=== PATIENT | female | born 1970 | race American Indian/Alaskan Native ===

== ENCOUNTER 2018-09-17 14:43 | Inpatient (IN) | payer MEDICAID ==
--- NOTE | 2018-09-17 15:05 | Emergency Department Report ---
Chief Complaint: Medical Clearance Stated Complaint: SOB/EDEMA Time Seen by Provider: 09/17/18 14:58 - HPI History of Present Illness: Pt presents abdominal distension and BLE edema for two weeks (+) SOB denies CP, chest tightness according to pts paperwork she has gained 86 pounds in 10 weeks denies hx of CHF, hepatitis, liver dysfunction PMHx schizophrenia and HTN seen at [facility] two days ago and d/c home (+) smoker MSE complete MSE screening note: Focused history and physical exam performed. ED Disposition for MSE Condition: Stable
--- NOTE | 2018-09-17 15:45 | Emergency Department Report ---
ED General Adult HPI - General Chief complaint: Medical Clearance Stated complaint: SOB/EDEMA Time Seen by Provider: 09/17/18 14:58 Source: patient Mode of arrival: Ambulatory Limitations: No Limitations - History of Present Illness Initial comments: Patient is 47 years old, morbidly obese female with history of schizophrenia and hypertension. Patient presented to the ER complaining of generalized body swelling and stiffness with some shortness of breath. Patient stated that she was seen in multiple ER recently for the same problem. She denied any chest pain, abdominal pain, nausea or vomiting. Patient denied any auditory or visual hallucination. No suicidal or homicidal ideation. Severity scale (0 -10): 0 - Related Data Home Medications Medication Instructions Recorded Confirmed Last Taken Divalproex Sodium [Depakote] 500 mg PO BID 09/17/18 09/17/18 Unknown Haldol (Nf) 09/17/18 Unknown Invega Sustenna 09/17/18 Unknown diphenhydrAMINE [Benadryl CAP] 50 mg PO HS 09/17/18 09/17/18 Unknown Allergies Allergy/AdvReac Type Severity Reaction Status Date / Time No Known Allergies Allergy Unverified 09/17/18 15:05 ED Review of Systems ROS: Stated complaint: SOB/EDEMA Other details as noted in HPI Comment: All other systems reviewed and negative Constitutional: denies: chills, fever Respiratory: shortness of breath, SOB with exertion. denies: cough, orthopnea, wheezing Cardiovascular: denies: chest pain, palpitations, dyspnea on exertion Gastrointestinal: denies: abdominal pain, nausea, vomiting Musculoskeletal: denies: back pain Neurological: denies: headache, weakness, numbness, paresthesias, confusion, abnormal gait ED Past Medical Hx - Past Medical History Hx GERD: Yes Hx Psychiatric Treatment: Yes (schizophrenia) - Social History Smoking Status: Current Every Day Smoker Substance Use Type: None - Medications Home Medications: Home Medications Medication Instructions Recorded Confirmed Last Taken Type Divalproex Sodium [Depakote] 500 mg PO BID 09/17/18 09/17/18 Unknown History Haldol (Nf) 09/17/18 Unknown History Invega Sustenna 09/17/18 Unknown History diphenhydrAMINE [Benadryl CAP] 50 mg PO HS 09/17/18 09/17/18 Unknown History ED Physical Exam - General Limitations: No Limitations General appearance: alert, in no apparent distress - Head Head exam: Present: atraumatic, normocephalic, normal inspection - Eye Eye exam: Present: normal appearance, periorbital swelling. Absent: periorbital tenderness - ENT ENT exam: Present: normal exam, normal orophraynx, mucous membranes moist - Neck Neck exam: Present: normal inspection, full ROM. Absent: tenderness, meningismus, lymphadenopathy, thyromegaly - Respiratory Respiratory exam: Present: normal lung sounds bilaterally. Absent: respiratory distress, wheezes, rales, rhonchi - Cardiovascular Cardiovascular Exam: Present: regular rate, normal rhythm, normal heart sounds - GI/Abdominal GI/Abdominal exam: Present: soft, normal bowel sounds. Absent: distended, tenderness, guarding, rebound, rigid, organomegaly, mass, bruit, pulsatile mass - Extremities Exam Extremities exam: Present: normal inspection, full ROM, normal capillary refill, pedal edema. Absent: calf tenderness - Back Exam Back exam: Present: normal inspection, full ROM. Absent: tenderness, CVA tenderness (R), CVA tenderness (L), muscle spasm, paraspinal tenderness - Neurological Exam Neurological exam: Present: alert, oriented X3, CN II-XII intact, normal gait, reflexes normal - Skin Skin exam: Present: warm, intact, normal color ED Course Vital Signs 09/17/18 09/17/18 09/17/18 15:02 15:37 16:00 Temperature 98.5 F 97.5 F L Pulse Rate 100 H 112 H 83 Respiratory 20 22 21 Rate Blood Pressure 164/99 137/86 Blood Pressure 149/89 [Left] O2 Sat by Pulse 99 100 99 Oximetry 09/17/18 09/17/18 09/17/18 17:00 18:00 19:00 Temperature Pulse Rate 86 88 79 Respiratory 16 25 H 20 Rate Blood Pressure 137/86 137/86 144/84 Blood Pressure [Left] O2 Sat by Pulse 99 98 92 Oximetry - Reevaluation(s) Reevaluation #1: 09/17/18 16:41 Dr. Carmita Tatum. Psychiatric doctor for this patient came to the emergency room to check on the patient. Dr. Tatum stated that patient gained 85 pounds in the last 2 months with significant shortness of breath and bilateral lower extremity edema and she is really concerned about how her medical health since patient is not taking care of herself. 09/17/18 19:32 - EJ/Peripheral Line Neck R Time Out Performed: Yes Indications: nurses unable to establis Skin Cleansed in Sterile Fashion: Yes Size: 20 Dressing Placed: Tegaderm, tape Patient Tolerated Procedure: well, no complications ED Medical Decision Making - Lab Data Result diagrams: 09/17/18 15:17 09/17/18 15:17 - Medical Decision Making Patient is 47 years old, morbidly obese female with history of schizophrenia and hypertension. Patient presented to the ER complaining of generalized body swelling and stiffness with some shortness of breath. Patient stated that she was seen in multiple ER recently for the same problem. She denied any chest pain, abdominal pain, nausea or vomiting. Patient denied any auditory or visual hallucination. No suicidal or homicidal ideation. Differential diagnosis for this patient is either congestive heart failure or nephrotic syndrome. Patient has more than 500 mg in the urine. I discussed the patient is Dr. Killian, he agreed to admit the patient to medical service. Critical Care Time: Yes Critical care time in (mins) excluding proc time.: 30 Critical care attestation.: If time is entered above; I have spent that time in minutes in the direct care of this critically ill patient, excluding procedure time. ED Disposition Clinical Impression: Acute exacerbation of congestive heart failure, Nephrotic syndrome, Generalized edema Disposition: OP ADMIT IP TO THIS HOSP Is pt being admited?: Yes Condition: Stable
[2018-09-17 15:57] LABS: Alanine Aminotransferase 7 units/L (7-56); Albumin 1.3 g/dL (3.9-5); BUN/Creatinine Ratio 16; Blood Urea Nitrogen 37 mg/dL (7-17); Calcium 7.4 mg/dL (8.4-10.2); Hemolysis Index 12
[2018-09-17 16:15] LABS: Basophils % (Auto) 0.8 % (0.0-1.8); Eosinophils # (Auto) 0.1 K/mm3 (0.0-0.4); Eosinophils % (Auto) 2.3 % (0.0-4.3); Hematocrit 27.9 % (30.3-42.9); Hemoglobin 9.1 gm/dl (10.1-14.3); Lymphocytes # (Auto) 1.7 K/mm3 (1.2-5.4); Lymphocytes % (Auto) 32.5 % (13.4-35.0); Mean Corpuscular HGB Conc 33 % (30-34); Mean Corpuscular Volume 83 fl (79-97); Monocytes # (Auto) 0.5 K/mm3 (0.0-0.8); Monocytes % (Auto) 8.8 % (0.0-7.3); Platelet Count 260 K/mm3 (140-440); Red Blood Count 3.34 M/mm3 (3.65-5.03)
[2018-09-17 16:19] LABS: Red Cell Distribution Width 20.5 % (13.2-15.2)
[2018-09-17 16:22] LABS: INR 0.93 (0.87-1.13)
[2018-09-17 16:23] LABS: Partial Thromboplastin Time 22.2 Sec. (24.2-36.6)
[2018-09-17] MEDS ORDERED: LASIX IV ONE (16:44)
[2018-09-17 17:48] LABS: Bacteria,Urine 2+ /HPF (Negative); Bilirubin,Urine NEG (Negative); Blood,Urine SM (Negative); Color,Urine Yellow (Yellow); Hyaline Casts,Urine 6 /LPF; Mucus,Urine FEW /HPF; Urobilinogen,Urine < 2.0 mg/dL (<2.0)
[2018-09-17 17:49] LABS: Protein,Urine >500 mg/dL (Negative)
[2018-09-17 17:53] LABS: Amphetamine Screen,Urine PRESUMPTIVE NEGATIVE; Benzodiazepines Screen,Urine PRESUMPTIVE NEGATIVE; Cannabinoid Screen,Urine PRESUMPTIVE NEGATIVE; Cocaine Screen,Urine PRESUMPTIVE NEGATIVE; Methadone Screen,Urine PRESUMPTIVE NEGATIVE; Opiate Screen,Urine PRESUMPTIVE NEGATIVE
--- NOTE | 2018-09-17 18:35 | XRay Report ---
PROCEDURE: XR CHEST ROUTINE 2V TECHNIQUE: 2 views of the chest HISTORY: Dyspnea COMPARISONS: None FINDINGS: Heart size upper limits normal. Patchy left lower lobe infiltrate with left basal consolidation. Mild right perihilar increased markings. IMPRESSION: Left lower lobe pneumonia versus asymmetric edema.. This document is electronically signed by Emy Martin MD., September 17 2018 06:33:42 PM ET
[2018-09-17] MEDS ORDERED: LASIX ONE (18:47)
--- NOTE | 2018-09-18 02:37 | History and Physical Report ---
History of Present Illness Date of examination: 09/17/18 Date of admission: 09/17/18 18:15 Medications and Allergies Allergies Allergy/AdvReac Type Severity Reaction Status Date / Time No Known Allergies Allergy Unverified 09/17/18 15:05 Home Medications Medication Instructions Recorded Confirmed Last Taken Type Divalproex Sodium [Depakote] 500 mg PO BID 09/17/18 09/17/18 Unknown History Haldol (Nf) 09/17/18 Unknown History Invega Sustenna 09/17/18 Unknown History diphenhydrAMINE [Benadryl CAP] 50 mg PO HS 09/17/18 09/17/18 Unknown History Exam - Constitutional Vitals: Temp Pulse Resp BP Pulse Ox 98.1 F 92 H 20 152/99 99 09/17/18 23:43 09/17/18 23:43 09/17/18 23:43 09/17/18 23:43 09/17/18 23:43 Results - Labs CBC & Chem 7: 09/17/18 15:17 09/17/18 15:17 Labs: Laboratory Last Values WBC 5.2 K/mm3 (4.5-11.0) 09/17/18 15:17 RBC 3.34 M/mm3 (3.65-5.03) L 09/17/18 15:17 Hgb 9.1 gm/dl (10.1-14.3) L 09/17/18 15:17 Hct 27.9 % (30.3-42.9) L 09/17/18 15:17 MCV 83 fl (79-97) 09/17/18 15:17 MCH 27 pg (28-32) L 09/17/18 15:17 MCHC 33 % (30-34) 09/17/18 15:17 RDW 20.5 % (13.2-15.2) H 09/17/18 15:17 Plt Count 260 K/mm3 (140-440) 09/17/18 15:17 Lymph % (Auto) 32.5 % (13.4-35.0) 09/17/18 15:17 [place] % (Auto) 8.8 % (0.0-7.3) H 09/17/18 15:17 Eos % (Auto) 2.3 % (0.0-4.3) 09/17/18 15:17 Baso % (Auto) 0.8 % (0.0-1.8) 09/17/18 15:17 Lymph # 1.7 K/mm3 (1.2-5.4) 09/17/18 15:17 [place] # 0.5 K/mm3 (0.0-0.8) 09/17/18 15:17 Eos # 0.1 K/mm3 (0.0-0.4) 09/17/18 15:17 Baso # 0.0 K/mm3 (0.0-0.1) 09/17/18 15:17 Seg Neutrophils % 55.6 % (40.0-70.0) 09/17/18 15:17 Seg Neutrophils # 2.9 K/mm3 (1.8-7.7) 09/17/18 15:17 PT 13.0 Sec. (12.2-14.9) 09/17/18 15:17 INR 0.93 (0.87-1.13) 09/17/18 15:17 APTT 22.2 Sec. (24.2-36.6) L 09/17/18 15:17 Sodium 139 mmol/L (137-145) 09/17/18 15:17 Potassium 4.8 mmol/L (3.6-5.0) 09/17/18 15:17 Chloride 107.7 mmol/L (98-107) H 09/17/18 15:17 Carbon Dioxide 22 mmol/L (22-30) 09/17/18 15:17 Anion Gap 14 mmol/L 09/17/18 15:17 BUN 37 mg/dL (7-17) H 09/17/18 15:17 Creatinine 2.3 mg/dL (0.7-1.2) H 09/17/18 15:17 Estimated GFR 28 ml/min 09/17/18 15:17 BUN/Creatinine Ratio 16 % 09/17/18 15:17 Glucose 87 mg/dL (65-100) 09/17/18 15:17 Calcium 7.4 mg/dL (8.4-10.2) L 09/17/18 15:17 Magnesium 2.60 mg/dL (1.7-2.3) H 09/17/18 15:17 Total Bilirubin < 0.20 mg/dL (0.1-1.2) 09/17/18 15:17 AST 15 units/L (5-40) 09/17/18 15:17 ALT 7 units/L (7-56) 09/17/18 15:17 Alkaline Phosphatase 57 units/L (35-129) 09/17/18 15:17 Troponin T 0.012 ng/mL (0.00-0.029) 09/17/18 15:17 NT-Pro-B Natriuret Pep 992.5 pg/mL (0-450) H 09/17/18 15:17 Total Protein 4.1 g/dL (6.3-8.2) L 09/17/18 15:17 Albumin 1.3 g/dL (3.9-5) L 09/17/18 15:17 Albumin/Globulin Ratio 0.5 % 09/17/18 15:17 Urine Color Yellow (Yellow) 09/17/18 17:18 Urine Turbidity Cloudy (Clear) 09/17/18 17:18 Urine pH 5.0 (5.0-7.0) 09/17/18 17:18 Ur Specific [place] 1.029 (1.003-1.030) 09/17/18 17:18 Urine Protein >500 mg/dL (Negative) 09/17/18 17:18 Urine Glucose (UA) Neg mg/dL (Negative) 09/17/18 17:18 Urine Ketones Tr mg/dL (Negative) 09/17/18 17:18 Urine Blood Sm (Negative) 09/17/18 17:18 Urine Nitrite Neg (Negative) 09/17/18 17:18 Urine Bilirubin Neg (Negative) 09/17/18 17:18 Urine Urobilinogen < 2.0 mg/dL (<2.0) 09/17/18 17:18 Ur Leukocyte Esterase Neg (Negative) 09/17/18 17:18 Urine WBC (Auto) 15.0 /HPF (0.0-6.0) H 09/17/18 17:18 Urine RBC (Auto) 13.0 /HPF (0.0-6.0) 09/17/18 17:18 U Epithel Cells (Auto) 6.0 /HPF (0-13.0) 09/17/18 17:18 Urine Bacteria (Auto) 2+ /HPF (Negative) 09/17/18 17:18 Urine WBC Clumps 2+ /HPF 09/17/18 17:18 Hyaline Casts 6 /LPF 09/17/18 17:18 Urine Mucus Few /HPF 09/17/18 17:18 Urine Yeast (Budding) 2+ /HPF 09/17/18 17:18 Urine Opiates Screen Presumptive negative 09/17/18 17:18 Urine Methadone Screen Presumptive negative 09/17/18 17:18 Ur Barbiturates Screen Presumptive negative 09/17/18 17:18 Ur Phencyclidine Scrn Presumptive negative 09/17/18 17:18 Ur Amphetamines Screen Presumptive negative 09/17/18 17:18 U Benzodiazepines Scrn Presumptive negative 09/17/18 17:18 Urine Cocaine Screen Presumptive negative 09/17/18 17:18 U Marijuana (THC) Screen Presumptive negative 09/17/18 17:18 Drugs of Abuse Note Disclamer 09/17/18 17:18
[2018-09-18] MEDS ORDERED: SODIUM CHLORIDE FLUSH SYRINGE 10 ML IV PRN (02:40)
[2018-09-18] MEDS ORDERED: DILAUDID IV PRN (02:40)
[2018-09-18] MEDS: LASIX IV SCH ×2 (06:23→17:45)
--- NOTE | 2018-09-18 06:50 | Event Note ---
Date: 09/17/18 See dictated H/p in reports Nephrotic syndrome CHF?
[2018-09-18 06:51] LABS: Basophils % (Auto) 0.4 % (0.0-1.8); Eosinophils # (Auto) 0.1 K/mm3 (0.0-0.4); Eosinophils % (Auto) 3.1 % (0.0-4.3); Hematocrit 25.5 % (30.3-42.9); Hemoglobin 8.5 gm/dl (10.1-14.3); Lymphocytes # (Auto) 1.6 K/mm3 (1.2-5.4); Lymphocytes % (Auto) 36.5 % (13.4-35.0); Mean Corpuscular HGB Conc 33 % (30-34); Mean Corpuscular Volume 83 fl (79-97); Monocytes # (Auto) 0.5 K/mm3 (0.0-0.8); Monocytes % (Auto) 12.3 % (0.0-7.3); Platelet Count 213 K/mm3 (140-440); Red Blood Count 3.06 M/mm3 (3.65-5.03)
[2018-09-18 06:53] LABS: Alanine Aminotransferase 6 units/L (7-56); Albumin 1.4 g/dL (3.9-5); BUN/Creatinine Ratio 17; Blood Urea Nitrogen 37 mg/dL (7-17); Calcium 7.4 mg/dL (8.4-10.2); Hemolysis Index 2
--- NOTE | 2018-09-18 07:48 | History and Physical Report ---
CHIEF COMPLAINT: Generalized swelling of the whole body for the last 1 week. HISTORY OF PRESENT ILLNESS: A 47-year-old with morbid obesity, comes in for increased swelling all over including the face and also increased weight for the last 1 week. The patient has been to multiple ERs for the same problem and was sent home. No suicidal or homicidal ideation. Shortness of breath on minimal exertion and orthopnea are present. Swelling of the whole body is new. No history of any kidney disease in the past. She has no history of CHF in the past. PAST MEDICAL HISTORY: Significant for schizophrenia and gastroesophageal reflux disease. SOCIAL HISTORY: Current everyday smoker. PAST SURGICAL HISTORY: None. FAMILY HISTORY: Hypertension. CURRENT MEDICATIONS: Depakote and Invega. REVIEW OF SYSTEMS: Significant for increased swelling of the face and the legs and the whole body and shortness of breath on minimal exertion. Orthopnea present. Otherwise, review of systems negative. No fever or chills. PHYSICAL EXAMINATION: GENERAL: Middle-aged female, morbidly obese, puffy face, and swollen legs. VITAL SIGNS: Blood pressure is 144/84, temperature is 97.9, pulse is 113, respirations are 18-20. HEENT: Unremarkable. Pupils equal and reactive. NECK: Supple, no lymphadenopathy, no thyromegaly. LUNGS: Clear to auscultation and percussion. Good air entry. CARDIOVASCULAR: S1, S2 heard. No gallop, no murmur, no rub. Apical impulse in left fifth intercostal space and midclavicular line. ABDOMEN: Soft and benign. No hepatosplenomegaly. No guarding, no rigidity. Hernial orifices are normal. EXTREMITIES: Good pedal pulses with 4+ pedal edema present. Face is puffy. LABORATORY DATA: Significant for white count of 5200, H and H of 9.1 and 27.9, platelet count of 260,000. Sodium is 139, potassium is 4.8, BUN and creatinine 37 and 2.3, calcium is 7.4, magnesium is 2.6. BNP is 992. Urine shows white blood cells of 15. Drug screen was essentially negative. Chest x-ray shows left lower lobe pneumonia versus asymmetric edema. ASSESSMENT AND PLAN: 1. Nephrotic syndrome. I am more in favor of nephrotic syndrome. Urine shows more than 500 protein. We will workup for nephrotic syndrome. BNP is low, CHF unlikely, but we will get echocardiogram. 2. Left lower lobe pneumonia, doubtful. We will start on ceftriaxone at 1 g IV piggyback q. 24h. 3. Urinary tract infection. Continue ceftriaxone. 4. Bipolar disorder. Continue Invega and Haldol. 5. Deep venous thrombosis prophylaxis, Lovenox 30 mg subcutaneous daily. JOB# [id number] VSM/NTS
[2018-09-18] MEDS: ROCEPHIN/NS 1 GM/50 ML 1 GM/50 ML BAG IV SCH (10:06)
--- NOTE | 2018-09-18 11:11 | Progress Note ---
Assessment and Plan Assessment and plan: Sepsis. Present on admission. Continue IV antibiotics. Etiology secondary to pneumonia and UTI. Left lower lobe pneumonia. Continue IV antibiotics. UTI. Continue Rocephin. Follow-up blood and urine cultures. ? Nephrotic syndrome. Nephrology consultation pending. Follow-up renal ultrasound. Bipolar disorder. Continue current medications. History Interval history: No new issues overnight Hospitalist Physical - Constitutional Vitals: Temp Pulse Resp BP Pulse Ox 98.2 F 102 H 20 157/107 99 09/18/18 06:15 09/18/18 06:15 09/18/18 06:15 09/18/18 06:15 09/18/18 06:15 General appearance: Present: no acute distress, well-nourished - EENT Eyes: Present: PERRL, EOM intact ENT: hearing intact, clear oral mucosa, dentition normal - Neck Neck: Present: supple, normal ROM - Respiratory Respiratory effort: normal Respiratory: bilateral: CTA - Cardiovascular Rhythm: regular Heart Sounds: Present: S1 & S2. Absent: gallop, rub - Extremities Extremities: no ischemia, No edema, Full ROM - Abdominal General gastrointestinal: soft, non-tender, non-distended, normal bowel sounds - Integumentary Integumentary: Present: clear, warm, dry - Neurologic Neurologic: CNII-XII intact, moves all extremities Results - Labs CBC & Chem 7: 09/18/18 05:22 09/18/18 05:22 Labs: Laboratory Last Values WBC 4.4 K/mm3 (4.5-11.0) L 09/18/18 05:22 RBC 3.06 M/mm3 (3.65-5.03) L 09/18/18 05:22 Hgb 8.5 gm/dl (10.1-14.3) L 09/18/18 05:22 Hct 25.5 % (30.3-42.9) L 09/18/18 05:22 MCV 83 fl (79-97) 09/18/18 05:22 MCH 28 pg (28-32) 09/18/18 05:22 MCHC 33 % (30-34) 09/18/18 05:22 RDW 20.0 % (13.2-15.2) H 09/18/18 05:22 Plt Count 213 K/mm3 (140-440) 09/18/18 05:22 Lymph % (Auto) 36.5 % (13.4-35.0) H 09/18/18 05:22 [place] % (Auto) 12.3 % (0.0-7.3) H 09/18/18 05:22 Eos % (Auto) 3.1 % (0.0-4.3) 09/18/18 05:22 Baso % (Auto) 0.4 % (0.0-1.8) 09/18/18 05:22 Lymph # 1.6 K/mm3 (1.2-5.4) 09/18/18 05:22 [place] # 0.5 K/mm3 (0.0-0.8) 09/18/18 05:22 Eos # 0.1 K/mm3 (0.0-0.4) 09/18/18 05:22 Baso # 0.0 K/mm3 (0.0-0.1) 09/18/18 05:22 Seg Neutrophils % 47.7 % (40.0-70.0) 09/18/18 05:22 Seg Neutrophils # 2.1 K/mm3 (1.8-7.7) 09/18/18 05:22 PT 13.0 Sec. (12.2-14.9) 09/17/18 15:17 INR 0.93 (0.87-1.13) 09/17/18 15:17 APTT 22.2 Sec. (24.2-36.6) L 09/17/18 15:17 Sodium 138 mmol/L (137-145) 09/18/18 05:22 Potassium 4.6 mmol/L (3.6-5.0) 09/18/18 05:22 Chloride 107.2 mmol/L (98-107) H 09/18/18 05:22 Carbon Dioxide 22 mmol/L (22-30) 09/18/18 05:22 Anion Gap 13 mmol/L 09/18/18 05:22 BUN 37 mg/dL (7-17) H 09/18/18 05:22 Creatinine 2.2 mg/dL (0.7-1.2) H 09/18/18 05:22 Estimated GFR 29 ml/min 09/18/18 05:22 BUN/Creatinine Ratio 17 % 09/18/18 05:22 Glucose 80 mg/dL (65-100) 09/18/18 05:22 Calcium 7.4 mg/dL (8.4-10.2) L 09/18/18 05:22 Magnesium 2.60 mg/dL (1.7-2.3) H 09/17/18 15:17 Total Bilirubin < 0.20 mg/dL (0.1-1.2) 09/18/18 05:22 AST 13 units/L (5-40) 09/18/18 05:22 ALT 6 units/L (7-56) L 09/18/18 05:22 Alkaline Phosphatase 51 units/L (35-129) 09/18/18 05:22 Troponin T 0.012 ng/mL (0.00-0.029) 09/17/18 15:17 NT-Pro-B Natriuret Pep 992.5 pg/mL (0-450) H 09/17/18 15:17 Total Protein 3.9 g/dL (6.3-8.2) L 09/18/18 05:22 Albumin 1.4 g/dL (3.9-5) L 09/18/18 05:22 Albumin/Globulin Ratio 0.6 % 09/18/18 05:22 Urine Color Yellow (Yellow) 09/17/18 17:18 Urine Turbidity Cloudy (Clear) 09/17/18 17:18 Urine pH 5.0 (5.0-7.0) 09/17/18 17:18 Ur Specific [place] 1.029 (1.003-1.030) 09/17/18 17:18 Urine Protein >500 mg/dL (Negative) 09/17/18 17:18 Urine Glucose (UA) Neg mg/dL (Negative) 09/17/18 17:18 Urine Ketones Tr mg/dL (Negative) 09/17/18 17:18 Urine Blood Sm (Negative) 09/17/18 17:18 Urine Nitrite Neg (Negative) 09/17/18 17:18 Urine Bilirubin Neg (Negative) 09/17/18 17:18 Urine Urobilinogen < 2.0 mg/dL (<2.0) 09/17/18 17:18 Ur Leukocyte Esterase Neg (Negative) 09/17/18 17:18 Urine WBC (Auto) 15.0 /HPF (0.0-6.0) H 09/17/18 17:18 Urine RBC (Auto) 13.0 /HPF (0.0-6.0) 09/17/18 17:18 U Epithel Cells (Auto) 6.0 /HPF (0-13.0) 09/17/18 17:18 Urine Bacteria (Auto) 2+ /HPF (Negative) 09/17/18 17:18 Urine WBC Clumps 2+ /HPF 09/17/18 17:18 Hyaline Casts 6 /LPF 09/17/18 17:18 Urine Mucus Few /HPF 09/17/18 17:18 Urine Yeast (Budding) 2+ /HPF 09/17/18 17:18 Urine Opiates Screen Presumptive negative 09/17/18 17:18 Urine Methadone Screen Presumptive negative 09/17/18 17:18 Ur Barbiturates Screen Presumptive negative 09/17/18 17:18 Ur Phencyclidine Scrn Presumptive negative 09/17/18 17:18 Ur Amphetamines Screen Presumptive negative 09/17/18 17:18 U Benzodiazepines Scrn Presumptive negative 09/17/18 17:18 Urine Cocaine Screen Presumptive negative 09/17/18 17:18 U Marijuana (THC) Screen Presumptive negative 09/17/18 17:18 Drugs of Abuse Note Disclamer 09/17/18 17:18
[2018-09-18] MEDS: SODIUM CHLORIDE FLUSH SYRINGE 10 ML IV SCH ×2 (12:05→22:09)
[2018-09-18] MEDS: K-DUR PO SCH ×2 (12:05→22:08)
[2018-09-18] MEDS: ZITHROMAX 500 MG in NACL 0.9% 250ML 250 ML IV SCH (12:06)
--- NOTE | 2018-09-18 13:31 | Ultrasound Report ---
ULTRASOUND RENAL BILATERAL HISTORY: Acute renal failure. TECHNIQUE: transabdominal ultrasound with color Doppler interrogation. FINDINGS: The right kidney measures 10.5cm. Right renal cortex: 1.5cm. The left kidney measures 11.4cm. Left renal cortex: 1.6cm. Scans of the kidneys show normal renal contours. There is normal central calyceal clustering and good preservation of the cortical thickness. There is no evidence of mass or hydronephrosis. The views of the bladder and the region of the ureters appear normal. IMPRESSION: Unremarkable renal ultrasound.
--- NOTE | 2018-09-18 14:11 | Consultation ---
History of Present Illness - Reason for Consult Consult date: 09/18/18 acute renal failure - History of Present Illness The patient is a 47 YO AAF with history significant for Obesity, HTN and Sc hizophrenia who presented to the ER with 2 weeks h/o bilateral leg swelling and increase in the abdominal girth. Patient was a poor historian. Associated symptoms include SOB. She had gained about 86 pounds in 10 weeks. Patient denies any h/o heart disease or Liver problem. No h/o CP, cough, hemoptysis, weakness, rash, fever, chills, dysuria, hematuria, foamy urine or sore throat. Labs were significant for creatinine of 2.2, Hb 8.5, albumin 1.4 and 3+ protein in the urine. Patient was admitted with provisional diagnosis of Nephrotic syndrome. Nephrology was consulted for further evaluation. Past History Past Medical History: hypertension, other (Scizophrenia) Medications and Allergies Allergies Allergy/AdvReac Type Severity Reaction Status Date / Time No Known Allergies Allergy Unverified 09/17/18 15:05 Home Medications Medication Instructions Recorded Confirmed Last Taken Type Divalproex Sodium [Depakote] 500 mg PO BID 09/17/18 09/17/18 Unknown History Haldol (Nf) 09/17/18 Unknown History Invega Sustenna 09/17/18 Unknown History diphenhydrAMINE [Benadryl CAP] 50 mg PO HS 09/17/18 09/17/18 Unknown History Active Meds: Active Medications Acetaminophen (Tylenol) 650 mg PO Q4H PRN PRN Reason: Pain MILD(1-3)/Fever >100.5/MENDOZA Diphenhydramine HCl (Benadryl) 50 mg PO [facility] Divalproex Sodium (Depakote Dr) 500 mg PO BID [facility] Last Admin: 09/18/18 12:05 Dose: 500 mg Documented by: Enoxaparin Sodium (Lovenox) 40 mg SUB-Q QDAY@2200 LUZ Furosemide (Lasix) 40 mg IV 0600,1800 [facility] Last Admin: 09/18/18 06:23 Dose: 40 mg Documented by: Hydromorphone HCl (Dilaudid) 0.5 mg IV Q3H PRN PRN Reason: Pain , Severe (7-10) Azithromycin 500 mg/ Sodium (Chloride) 250 mls @ 250 mls/hr IV Q24HR [facility] Last Admin: 09/18/18 12:06 Dose: 250 mls/hr Documented by: Ceftriaxone Sodium (Rocephin/Ns 1 Gm/50 Ml) 1 gm in 50 mls @ 100 mls/hr IV Q24HR [facility]; Protocol Last Admin: 09/18/18 10:06 Dose: 100 mls/hr Documented by: Ondansetron HCl (Zofran) 4 mg IV Q8H PRN PRN Reason: Nausea And Vomiting Oxycodone/Acetaminophen (Percocet 5/325) 1 tab PO Q6H PRN PRN Reason: Pain, Moderate (4-6) Potassium Chloride (K-Dur) 20 meq PO BID [facility] Last Admin: 09/18/18 12:05 Dose: 20 meq Documented by: Sodium Chloride (Sodium Chloride Flush Syringe 10 Ml) 10 ml IV BID [facility] Last Admin: 09/18/18 12:05 Dose: 10 ml Documented by: Sodium Chloride (Sodium Chloride Flush Syringe 10 Ml) 10 ml IV PRN PRN PRN Reason: LINE FLUSH Review of Systems Constitutional: weight gain, no weight loss, no fever, no chills, no anorexia, no weakness Breasts: deferred Cardiovascular: edema, shortness of breath, dyspnea on exertion, high blood pressure, leg edema, decreased exercise tolerance, no chest pain, no orthopnea, no palpitations, no syncope, no lightheadedness Respiratory: shortness of breath, dyspnea on exertion, no cough, no cough with sputum, no hemoptysis, no home oxygen Gastrointestinal: no abdominal pain, no nausea, no vomiting, no diarrhea, no melena Genitourinary Female: no dysuria, no hematuria Rectal: no bleeding Musculoskeletal: no neck pain, no muscle weakness Integumentary: no rash, no sores, no wounds, no jaundice Neurological: no paralysis, no weakness, no seizures, no syncope Exam - Vital Signs Vital signs: Vital Signs Temp Pulse Resp BP Pulse Ox 98.5 F 100 H 20 164/99 99 09/17/18 15:02 09/17/18 15:02 09/17/18 15:02 09/17/18 15:02 09/17/18 15:02 - General Appearance General appearance: well-developed, well-nourished, appears stated age, obese, other (not in distress) EENT: ATNC, PERRL, mucous membranes moist, other (facial plethora noted) Neck: Present: neck supple, trachea midline Respiratory: Clear to Ascultation Heart: regular, S1S2, no murmurs Gastrointestinal: Present: normoactive bowel sounds. Absent: tenderness, distended Integumentary: no rash, warm and dry Neurologic: no focal deficit, no asterixis Musculoskeletal: Present: other (1 to 2+ edema of both LEs noted) Results - Lab Results 09/18/18 05:22 09/18/18 05:22 Most recent lab results Calcium 7.4 mg/dL (8.4-10.2) L 09/18/18 05:22 Magnesium 2.60 mg/dL (1.7-2.3) H 09/17/18 15:17 Assessment and Plan 1. Nephrotic syndrome: Clinically patient appears to have Nephrotic syndrome. Urine protein quantification pending. Will order BI. ANCA and complements. Etiology include FSGS, Minimal change, Membranous and Lupus nephritis. For definitive diagnosis kidney biospy is needed. Patient is on Lovenox to prevent DVT. Need Statin. 2. Acute kidney injury: Likely related Nephrotic syndrome. Urine studies pending. Renal US was negative. 3. HTN. 4. Volume overload: Continue Lasix. 5. Anemia: Present on admission.
[2018-09-18] MEDS: TYLENOL PO PRN (17:56)
[2018-09-18] MEDS: BENADRYL PO SCH (22:08)
[2018-09-18] MEDS: LOVENOX SUB-Q SCH (22:09)
[2018-09-19 07:20] LABS: Calcium 7.3 mg/dL (8.4-10.2)
[2018-09-19] MEDS: LASIX IV SCH ×2 (08:03→20:11)
--- NOTE | 2018-09-19 10:41 | Progress Note ---
Assessment and Plan 1. Nephrotic syndrome: Clinically patient appears to have Nephrotic syndrome. Urine protein quantification pending. BI, ANCA, complements and SPEP are pending. Etiology includes FSGS, Minimal change, Membranous and Lupus nephritis. For definitive diagnosis kidney biospy is needed. Patient is on Lovenox to prevent DVT. Continue Statin. 2. Acute kidney injury: Likely related Nephrotic syndrome. Urine studies pending. Renal US was negative. 3. HTN. 4. Volume overload: Continue Lasix. 5. Anemia: Present on admission. Subjective Date of service: 09/19/18 Interval history: Patient is doing ok. RN was present at the bedside. Objective - Vital Signs Vital signs: Vital Signs - 12hr 09/18/18 09/18/18 09/19/18 23:37 23:40 06:10 Temperature 98.5 F 97.6 F Pulse Rate 78 92 H Respiratory 18 18 Rate Blood Pressure 144/71 Blood Pressure 112/78 [Left] O2 Sat by Pulse 98 97 Oximetry - General Appearance General appearance: well-developed, well-nourished, appears stated age, obese, other (not in distress) EENT: ATNC, PERRL, mucous membranes moist, hearing intact, vision intact Neck: supple Respiratory: Present: Clear to Ascultation Cardiology: regular, S1S2, no murmurs Gastrointestinal: normoactive bowel sounds, no tenderness, no distended, obese Integumentary: no rash, warm and dry Neurologic: no focal deficit, no asterixis, alert and oriented x3 Musculoskeletal: other (bilateral LE edema, anasarca noted) - Lab 09/18/18 05:22 09/19/18 05:45 Most recent lab results Calcium 7.3 mg/dL (8.4-10.2) L 09/19/18 05:45 Phosphorus 4.00 mg/dL (2.5-4.5) 09/19/18 05:45 Magnesium 2.60 mg/dL (1.7-2.3) H 09/17/18 15:17 Medications & Allergies - Medications Allergies/Adverse Reactions: Allergies No Known Allergies Allergy (Unverified 09/17/18 15:05) Home Medications: Home Medications Medication Instructions Recorded Confirmed Last Taken Type Divalproex Sodium [Depakote] 500 mg PO BID 09/17/18 09/17/18 Unknown History Haldol (Nf) 09/17/18 Unknown History Invega Sustenna 09/17/18 Unknown History diphenhydrAMINE [Benadryl CAP] 50 mg PO HS 09/17/18 09/17/18 Unknown History Active Medications: Generic Name Dose Route Start Last Admin Trade Name Freq PRN Reason Stop Dose Admin Acetaminophen 650 mg 09/18/18 02:40 09/18/18 17:56 Tylenol PO 650 mg Q4H PRN Administration Pain MILD(1-3)/Fever >100.5/MENDOZA Atorvastatin Calcium 40 mg 09/18/18 22:00 09/18/18 22:08 Lipitor PO 40 mg QHS LUZ Administration Diphenhydramine HCl 50 mg 09/18/18 22:00 09/18/18 22:08 Benadryl PO 50 mg HS LUZ Administration Divalproex Sodium 500 mg 09/18/18 10:00 09/18/18 22:[address] PO 500 mg BID LUZ Administration Enoxaparin Sodium 40 mg 09/18/18 22:00 09/18/18 22:09 Lovenox SUB-Q 40 mg QDAY@2200 LUZ Administration Furosemide 40 mg 09/18/18 06:00 09/19/18 08:03 Lasix IV Not Given 0600,1800 LUZ Hydromorphone HCl 0.5 mg 09/18/18 02:40 Dilaudid IV Q3H PRN Pain , Severe (7-10) Azithromycin 500 mg/ Sodium 250 mls @ 250 mls/hr 09/18/18 10:00 09/18/18 12:06 Chloride IV 250 mls/hr Q24HR [facility]Z Administration Ceftriaxone Sodium 1 gm in 50 mls @ 100 mls/hr 09/18/18 10:00 09/18/18 10:06 Rocephin/Ns 1 Gm/50 Ml IV 100 mls/hr Q24HR [facility]Z Administration Protocol Ondansetron HCl 4 mg 09/18/18 02:40 Zofran IV Q8H PRN Nausea And Vomiting Oxycodone/Acetaminophen 1 tab 09/18/18 02:40 Percocet 5/325 PO Q6H PRN Pain, Moderate (4-6) Potassium Chloride 20 meq 09/18/18 10:00 09/18/18 22:08 K-Dur PO 20 meq BID LUZ Administration Sodium Chloride 10 ml 09/18/18 10:00 09/18/18 22:09 Sodium Chloride Flush Syringe 10 Ml IV 10 ml BID LUZ Administration Sodium Chloride 10 ml 09/18/18 02:40 Sodium Chloride Flush Syringe 10 Ml IV PRN PRN LINE FLUSH
--- NOTE | 2018-09-19 11:01 | Progress Note ---
Assessment and Plan Assessment and plan: Sepsis. Present on admission. Continue IV antibiotics. Etiology secondary to pneumonia and UTI. Left lower lobe pneumonia. Continue IV antibiotics. UTI. Continue Rocephin. Nephrotic syndrome. Nephrology following. Urine protein quantification pending. Follow BI, ANCA and complements. Etiology include FSGS, Minimal change, Membranous and Lupus nephritis. Renal ultrasound negative. Bipolar disorder. Continue current medications. History Interval history: No new issues overnight Hospitalist Physical - Constitutional Vitals: Temp Pulse Resp BP Pulse Ox 97.6 F 92 H 18 112/78 97 09/19/18 06:10 09/19/18 06:10 09/19/18 06:10 09/19/18 06:10 09/19/18 06:10 General appearance: Present: no acute distress, well-nourished - EENT Eyes: Present: PERRL, EOM intact ENT: hearing intact, clear oral mucosa, dentition normal - Neck Neck: Present: supple, normal ROM - Respiratory Respiratory effort: normal Respiratory: bilateral: CTA - Cardiovascular Rhythm: regular Heart Sounds: Present: S1 & S2. Absent: gallop, rub - Extremities Extremities: no ischemia, No edema, Full ROM - Abdominal General gastrointestinal: soft, non-tender, non-distended, normal bowel sounds - Integumentary Integumentary: Present: clear, warm, dry - Neurologic Neurologic: CNII-XII intact, moves all extremities Results - Labs CBC & Chem 7: 09/18/18 05:22 09/19/18 05:45 Labs: Laboratory Last Values WBC 4.4 K/mm3 (4.5-11.0) L 09/18/18 05:22 RBC 3.06 M/mm3 (3.65-5.03) L 09/18/18 05:22 Hgb 8.5 gm/dl (10.1-14.3) L 09/18/18 05:22 Hct 25.5 % (30.3-42.9) L 09/18/18 05:22 MCV 83 fl (79-97) 09/18/18 05:22 MCH 28 pg (28-32) 09/18/18 05:22 MCHC 33 % (30-34) 09/18/18 05:22 RDW 20.0 % (13.2-15.2) H 09/18/18 05:22 Plt Count 213 K/mm3 (140-440) 09/18/18 05:22 Lymph % (Auto) 36.5 % (13.4-35.0) H 09/18/18 05:22 [place] % (Auto) 12.3 % (0.0-7.3) H 09/18/18 05:22 Eos % (Auto) 3.1 % (0.0-4.3) 09/18/18 05:22 Baso % (Auto) 0.4 % (0.0-1.8) 09/18/18 05:22 Lymph # 1.6 K/mm3 (1.2-5.4) 09/18/18 05:22 [place] # 0.5 K/mm3 (0.0-0.8) 09/18/18 05:22 Eos # 0.1 K/mm3 (0.0-0.4) 09/18/18 05:22 Baso # 0.0 K/mm3 (0.0-0.1) 09/18/18 05:22 Seg Neutrophils % 47.7 % (40.0-70.0) 09/18/18 05:22 Seg Neutrophils # 2.1 K/mm3 (1.8-7.7) 09/18/18 05:22 PT 13.0 Sec. (12.2-14.9) 09/17/18 15:17 INR 0.93 (0.87-1.13) 09/17/18 15:17 APTT 22.2 Sec. (24.2-36.6) L 09/17/18 15:17 Sodium 138 mmol/L (137-145) 09/19/18 05:45 Potassium 4.9 mmol/L (3.6-5.0) 09/19/18 05:45 Chloride 106.5 mmol/L (98-107) 09/19/18 05:45 Carbon Dioxide 23 mmol/L (22-30) 09/19/18 05:45 Anion Gap 13 mmol/L 09/19/18 05:45 BUN 37 mg/dL (7-17) H 09/19/18 05:45 Creatinine 2.1 mg/dL (0.7-1.2) H 09/19/18 05:45 Estimated GFR 31 ml/min 09/19/18 05:45 BUN/Creatinine Ratio 18 % 09/19/18 05:45 Glucose 88 mg/dL (65-100) 09/19/18 05:45 Calcium 7.3 mg/dL (8.4-10.2) L 09/19/18 05:45 Phosphorus 4.00 mg/dL (2.5-4.5) 09/19/18 05:45 Magnesium 2.60 mg/dL (1.7-2.3) H 09/17/18 15:17 Total Bilirubin < 0.20 mg/dL (0.1-1.2) 09/18/18 05:22 AST 13 units/L (5-40) 09/18/18 05:22 ALT 6 units/L (7-56) L 09/18/18 05:22 Alkaline Phosphatase 51 units/L (35-129) 09/18/18 05:22 Troponin T 0.012 ng/mL (0.00-0.029) 09/17/18 15:17 NT-Pro-B Natriuret Pep 992.5 pg/mL (0-450) H 09/17/18 15:17 Total Protein 3.9 g/dL (6.3-8.2) L 09/18/18 05:22 Albumin 1.4 g/dL (3.9-5) L 09/18/18 05:22 Albumin/Globulin Ratio 0.6 % 09/18/18 05:22 PTH Intact 46.07 pg/mL (15-65) 09/19/18 05:45 Urine Color Yellow (Yellow) 09/17/18 17:18 Urine Turbidity Cloudy (Clear) 09/17/18 17:18 Urine pH 5.0 (5.0-7.0) 09/17/18 17:18 Ur Specific [place] 1.029 (1.003-1.030) 09/17/18 17:18 Urine Protein >500 mg/dL (Negative) 09/17/18 17:18 Urine Glucose (UA) Neg mg/dL (Negative) 09/17/18 17:18 Urine Ketones Tr mg/dL (Negative) 09/17/18 17:18 Urine Blood Sm (Negative) 09/17/18 17:18 Urine Nitrite Neg (Negative) 09/17/18 17:18 Urine Bilirubin Neg (Negative) 09/17/18 17:18 Urine Urobilinogen < 2.0 mg/dL (<2.0) 09/17/18 17:18 Ur Leukocyte Esterase Neg (Negative) 09/17/18 17:18 Urine WBC (Auto) 15.0 /HPF (0.0-6.0) H 09/17/18 17:18 Urine RBC (Auto) 13.0 /HPF (0.0-6.0) 09/17/18 17:18 U Epithel Cells (Auto) 6.0 /HPF (0-13.0) 09/17/18 17:18 Urine Bacteria (Auto) 2+ /HPF (Negative) 09/17/18 17:18 Urine WBC Clumps 2+ /HPF 09/17/18 17:18 Hyaline Casts 6 /LPF 09/17/18 17:18 Urine Mucus Few /HPF 09/17/18 17:18 Urine Yeast (Budding) 2+ /HPF 09/17/18 17:18 Urine Opiates Screen Presumptive negative 09/17/18 17:18 Urine Methadone Screen Presumptive negative 09/17/18 17:18 Ur Barbiturates Screen Presumptive negative 09/17/18 17:18 Ur Phencyclidine Scrn Presumptive negative 09/17/18 17:18 Ur Amphetamines Screen Presumptive negative 09/17/18 17:18 U Benzodiazepines Scrn Presumptive negative 09/17/18 17:18 Urine Cocaine Screen Presumptive negative 09/17/18 17:18 U Marijuana (THC) Screen Presumptive negative 09/17/18 17:18 Drugs of Abuse Note Disclamer 09/17/18 17:18
[2018-09-19] MEDS: ROCEPHIN/NS 1 GM/50 ML 1 GM/50 ML BAG IV SCH (11:11)
[2018-09-19] MEDS: ZITHROMAX 500 MG in NACL 0.9% 250ML 250 ML IV SCH (11:12)
[2018-09-19] MEDS: SODIUM CHLORIDE FLUSH SYRINGE 10 ML IV SCH ×2 (11:12→23:20)
[2018-09-19] MEDS: K-DUR PO SCH ×2 (11:12→23:17)
[2018-09-19 11:54] LABS: Hepatitis B Surface Antigen Non-Reactive (Negative); Hepatitis C Virus Antibody Non-Reactive (NonReactive)
[2018-09-19 12:32] LABS: Creatinine,Urine 147.5 mg/dL (0.1-20.0)
[2018-09-19 12:34] LABS: Creatinine 24 Hour,Urine 0.7 (0.8-2.8)
[2018-09-19 13:28] LABS: Protein/Creatinine Ratio,Urine 1.53
[2018-09-19] MEDS: BENADRYL PO SCH (23:05)
[2018-09-19] MEDS: LOVENOX SUB-Q SCH (23:06)
[2018-09-20] MEDS ORDERED: LASIX PO ONE (05:55)
[2018-09-20 06:06] LABS: Calcium 7.2 mg/dL (8.4-10.2)
[2018-09-20] MEDS: LASIX IV SCH ×2 (07:56→17:48)
[2018-09-20] MEDS ORDERED: VERSED IV ONE (09:07)
--- NOTE | 2018-09-20 09:10 | Progress Note ---
Assessment and Plan 1. Nephrotic syndrome: Clinically patient appears to have Nephrotic syndrome. Will repeat Urine protein quantification pending. BI, ANCA, complements and SPEP are pending. Etiology includes FSGS, Minimal change, Membranous and Lupus nephritis. Patient refused kidney biospy. Verbalized the risks involved in not doing the biopsy. Patient is on Lovenox to prevent DVT. Continue Statin. 2. Acute kidney injury: Likely related Nephrotic syndrome. Follow Urine studies. Renal US was negative. 3. HTN. 4. Volume overload: Continue Lasix. 5. Anemia: Present on admission. Patient wants to go home today. F/u with me in 1-2 weeks. Subjective Date of service: 09/20/18 Interval history: Patient is doing ok. Patient refused kidney biopsy. Objective - Vital Signs Vital signs: Vital Signs - 12hr 09/19/18 09/19/18 09/20/18 22:00 23:43 08:34 Temperature 98.8 F Pulse Rate 99 H Respiratory 17 20 20 Rate Blood Pressure 158/90 O2 Sat by Pulse 98 Oximetry - General Appearance General appearance: well-developed, well-nourished, appears stated age, obese, other (not in distress) EENT: ATNC, PERRL, mucous membranes moist, hearing intact, vision intact Neck: supple Respiratory: Present: Clear to Ascultation Cardiology: regular, S1S2, no murmurs Gastrointestinal: normoactive bowel sounds, no tenderness, no distended, obese Integumentary: no rash, warm and dry Neurologic: no focal deficit, no asterixis, alert and oriented x3 Musculoskeletal: other (2+ edema of both LEs noted) - Lab 09/18/18 05:22 09/20/18 04:56 Most recent lab results Calcium 7.2 mg/dL (8.4-10.2) L 09/20/18 04:56 Phosphorus 4.00 mg/dL (2.5-4.5) 09/19/18 05:45 Magnesium 2.60 mg/dL (1.7-2.3) H 09/17/18 15:17 Urine Creatinine 147.5 mg/dL (0.1-20.0) H 09/18/18 10:30 Ur Total Protein 24 Hr 1073.50 mg/dL (2-200) H 09/18/18 10:30 Urine Sodium 26 mmol/L 09/18/18 10:30 Urine Total Protein 226 mg/dL (5-11.8) H 09/18/18 10:30 Medications & Allergies - Medications Allergies/Adverse Reactions: Allergies No Known Allergies Allergy (Unverified 09/17/18 15:05) Home Medications: Home Medications Medication Instructions Recorded Confirmed Last Taken Type Divalproex Sodium [Depakote] 500 mg PO BID 09/17/18 09/17/18 Unknown History Haldol (Nf) 09/17/18 Unknown History Invega Sustenna 09/17/18 Unknown History diphenhydrAMINE [Benadryl CAP] 50 mg PO HS 09/17/18 09/17/18 Unknown History Active Medications: Generic Name Dose Route Start Last Admin Trade Name Freq PRN Reason Stop Dose Admin Acetaminophen 650 mg 09/18/18 02:40 09/18/18 17:56 Tylenol PO 650 mg Q4H PRN Administration Pain MILD(1-3)/Fever >100.5/MENDOZA Atorvastatin Calcium 40 mg 09/18/18 22:00 09/19/18 23:04 Lipitor PO 40 mg QHS LUZ Administration Diphenhydramine HCl 50 mg 09/18/18 22:00 09/19/18 23:05 Benadryl PO 50 mg HS LUZ Administration Divalproex Sodium 500 mg 09/18/18 10:00 09/19/18 23:[address] PO 500 mg BID LUZ Administration Enoxaparin Sodium 40 mg 09/18/18 22:00 09/19/18 23:06 Lovenox SUB-Q 40 mg QDAY@2200 LUZ Administration Fentanyl 100 mcg 09/20/18 09:07 Sublimaze IV 09/20/18 09:08 ONCE ONE Furosemide 40 mg 09/18/18 06:00 09/20/18 07:56 Lasix IV Not Given 0600,1800 LUZ Hydromorphone HCl 0.5 mg 09/18/18 02:40 Dilaudid IV Q3H PRN Pain , Severe (7-10) Azithromycin 500 mg/ Sodium 250 mls @ 250 mls/hr 09/18/18 10:00 09/19/18 11:12 Chloride IV 250 mls/hr Q24HR LUZ Administration Ceftriaxone Sodium 1 gm in 50 mls @ 100 mls/hr 09/18/18 10:00 09/19/18 11:11 Rocephin/Ns 1 Gm/50 Ml IV 100 mls/hr Q24HR LUZ Administration Protocol Midazolam HCl 5 mg 09/20/18 09:07 Versed IV 09/20/18 09:08 ONCE ONE Ondansetron HCl 4 mg 09/18/18 02:40 Zofran IV Q8H PRN Nausea And Vomiting Oxycodone/Acetaminophen 1 tab 09/18/18 02:40 Percocet 5/325 PO Q6H PRN Pain, Moderate (4-6) Potassium Chloride 20 meq 09/18/18 10:00 09/19/18 23:17 K-Dur PO 20 meq BID LUZ Administration Sodium Chloride 10 ml 09/18/18 10:00 09/19/18 23:20 Sodium Chloride Flush Syringe 10 Ml IV Not Given BID [facility]Z Sodium Chloride 10 ml 09/18/18 02:40 Sodium Chloride Flush Syringe 10 Ml IV PRN PRN LINE FLUSH
[2018-09-20] MEDS ORDERED: NACL 0.9% 500 ML 0 ML ONE (09:25)
--- NOTE | 2018-09-20 10:37 | Progress Note ---
Assessment and Plan Assessment and plan: Nephrotic syndrome. Urine protein quantification pending. Follow BI, ANCA and complements. Etiology include FSGS, Minimal change, Membranous and Lupus nephritis. Renal ultrasound negative. Patient unfortunately refused kidney biopsy yesterday. I discussed the case with nephrology. Hyperkalemia. Kayexalate. Recheck BMP in the morning. Sepsis. Present on admission. Continue IV antibiotics. Etiology secondary to pneumonia and UTI. Left lower lobe pneumonia. Continue IV antibiotics. UTI. Continue Rocephin. Bipolar disorder. Continue current medications. History Interval history: No new issues overnight Hospitalist Physical - Constitutional Vitals: Temp Pulse Resp BP Pulse Ox 99.0 F 91 H 20 142/74 99 09/20/18 05:37 09/20/18 05:37 09/20/18 08:34 09/20/18 05:37 09/20/18 05:37 General appearance: Present: no acute distress, well-nourished - EENT Eyes: Present: PERRL, EOM intact ENT: hearing intact, clear oral mucosa, dentition normal - Neck Neck: Present: supple, normal ROM - Respiratory Respiratory effort: normal Respiratory: bilateral: CTA - Cardiovascular Rhythm: regular Heart Sounds: Present: S1 & S2. Absent: gallop, rub - Extremities Extremities: no ischemia, No edema, Full ROM - Abdominal General gastrointestinal: soft, non-tender, non-distended, normal bowel sounds - Integumentary Integumentary: Present: clear, warm, dry - Neurologic Neurologic: CNII-XII intact, moves all extremities Results - Labs CBC & Chem 7: 09/18/18 05:22 09/20/18 04:56 Labs: Laboratory Last Values WBC 4.4 K/mm3 (4.5-11.0) L 09/18/18 05:22 RBC 3.06 M/mm3 (3.65-5.03) L 09/18/18 05:22 Hgb 8.5 gm/dl (10.1-14.3) L 09/18/18 05:22 Hct 25.5 % (30.3-42.9) L 09/18/18 05:22 MCV 83 fl (79-97) 09/18/18 05:22 MCH 28 pg (28-32) 09/18/18 05:22 MCHC 33 % (30-34) 09/18/18 05:22 RDW 20.0 % (13.2-15.2) H 09/18/18 05:22 Plt Count 213 K/mm3 (140-440) 09/18/18 05:22 Lymph % (Auto) 36.5 % (13.4-35.0) H 09/18/18 05:22 [place] % (Auto) 12.3 % (0.0-7.3) H 09/18/18 05:22 Eos % (Auto) 3.1 % (0.0-4.3) 09/18/18 05:22 Baso % (Auto) 0.4 % (0.0-1.8) 09/18/18 05:22 Lymph # 1.6 K/mm3 (1.2-5.4) 09/18/18 05:22 [place] # 0.5 K/mm3 (0.0-0.8) 09/18/18 05:22 Eos # 0.1 K/mm3 (0.0-0.4) 09/18/18 05:22 Baso # 0.0 K/mm3 (0.0-0.1) 09/18/18 05:22 Seg Neutrophils % 47.7 % (40.0-70.0) 09/18/18 05:22 Seg Neutrophils # 2.1 K/mm3 (1.8-7.7) 09/18/18 05:22 PT 13.0 Sec. (12.2-14.9) 09/17/18 15:17 INR 0.93 (0.87-1.13) 09/17/18 15:17 APTT 22.2 Sec. (24.2-36.6) L 09/17/18 15:17 Sodium 139 mmol/L (137-145) 09/20/18 04:56 Potassium 5.4 mmol/L (3.6-5.0) H 09/20/18 04:56 Chloride 108.2 mmol/L (98-107) H 09/20/18 04:56 Carbon Dioxide 24 mmol/L (22-30) 09/20/18 04:56 Anion Gap 12 mmol/L 09/20/18 04:56 BUN 38 mg/dL (7-17) H 09/20/18 04:56 Creatinine 2.4 mg/dL (0.7-1.2) H 09/20/18 04:56 Estimated GFR 26 ml/min 09/20/18 04:56 BUN/Creatinine Ratio 16 % 09/20/18 04:56 Glucose 86 mg/dL (65-100) 09/20/18 04:56 Calcium 7.2 mg/dL (8.4-10.2) L 09/20/18 04:56 Phosphorus 4.00 mg/dL (2.5-4.5) 09/19/18 05:45 Magnesium 2.60 mg/dL (1.7-2.3) H 09/17/18 15:17 Total Bilirubin < 0.20 mg/dL (0.1-1.2) 09/18/18 05:22 AST 13 units/L (5-40) 09/18/18 05:22 ALT 6 units/L (7-56) L 09/18/18 05:22 Alkaline Phosphatase 51 units/L (35-129) 09/18/18 05:22 Troponin T 0.012 ng/mL (0.00-0.029) 09/17/18 15:17 NT-Pro-B Natriuret Pep 992.5 pg/mL (0-450) H 09/17/18 15:17 Total Protein 3.9 g/dL (6.3-8.2) L 09/18/18 05:22 Albumin 1.4 g/dL (3.9-5) L 09/18/18 05:22 Albumin/Globulin Ratio 0.6 % 09/18/18 05:22 PTH Intact 46.07 pg/mL (15-65) 09/19/18 05:45 Urine Color Yellow (Yellow) 09/17/18 17:18 Urine Turbidity Cloudy (Clear) 09/17/18 17:18 Urine pH 5.0 (5.0-7.0) 09/17/18 17:18 Ur Specific [place] 1.029 (1.003-1.030) 09/17/18 17:18 Urine Protein >500 mg/dL (Negative) 09/17/18 17:18 Urine Glucose (UA) Neg mg/dL (Negative) 09/17/18 17:18 Urine Ketones Tr mg/dL (Negative) 09/17/18 17:18 Urine Blood Sm (Negative) 09/17/18 17:18 Urine Nitrite Neg (Negative) 09/17/18 17:18 Urine Bilirubin Neg (Negative) 09/17/18 17:18 Urine Urobilinogen < 2.0 mg/dL (<2.0) 09/17/18 17:18 Ur Leukocyte Esterase Neg (Negative) 09/17/18 17:18 Urine WBC (Auto) 15.0 /HPF (0.0-6.0) H 09/17/18 17:18 Urine RBC (Auto) 13.0 /HPF (0.0-6.0) 09/17/18 17:18 U Epithel Cells (Auto) 6.0 /HPF (0-13.0) 09/17/18 17:18 Urine Bacteria (Auto) 2+ /HPF (Negative) 09/17/18 17:18 Urine WBC Clumps 2+ /HPF 09/17/18 17:18 Hyaline Casts 6 /LPF 09/17/18 17:18 Urine Mucus Few /HPF 09/17/18 17:18 Urine Yeast (Budding) 2+ /HPF 09/17/18 17:18 Urine Eosinophils None seen (None Seen) 09/18/18 10:30 Urine Total Volume 475 ml 09/18/18 10:30 Urine Creatinine 147.5 mg/dL (0.1-20.0) H 09/18/18 10:30 Ur Creatinine 24 Hour 0.7 (0.8-2.8) L 09/18/18 10:30 Ur Total Protein 24 Hr 1073.50 mg/dL (2-200) H 09/18/18 10:30 Protein/Creatinin Ratio 1.53 09/18/18 10:30 Urine Sodium 26 mmol/L 09/18/18 10:30 Urine Urea Nitrogen 467 09/18/18 10:30 Ur Urea Nitrogen 24 Hr 2.22 09/18/18 10:30 Urine Total Protein 226 mg/dL (5-11.8) H 09/18/18 10:30 Urine Opiates Screen Presumptive negative 09/17/18 17:18 Urine Methadone Screen Presumptive negative 09/17/18 17:18 Ur Barbiturates Screen Presumptive negative 09/17/18 17:18 Ur Phencyclidine Scrn Presumptive negative 09/17/18 17:18 Ur Amphetamines Screen Presumptive negative 09/17/18 17:18 U Benzodiazepines Scrn Presumptive negative 09/17/18 17:18 Urine Cocaine Screen Presumptive negative 09/17/18 17:18 U Marijuana (THC) Screen Presumptive negative 09/17/18 17:18 Drugs of Abuse Note Disclamer 09/17/18 17:18 Hepatitis A IgM Ab Non-reactive (NonReactive) 09/19/18 05:45 Hep Bs Antigen Non-reactive (Negative) 09/19/18 05:45 Hep B Core IgM Ab Non-reactive (NonReactive) 09/19/18 05:45 Hepatitis C Antibody Non-reactive (NonReactive) 09/19/18 05:45
[2018-09-20] MEDS: ROCEPHIN/NS 1 GM/50 ML 1 GM/50 ML BAG IV SCH (10:59)
[2018-09-20] MEDS: SODIUM CHLORIDE FLUSH SYRINGE 10 ML IV SCH ×2 (11:00→22:35)
[2018-09-20] MEDS ORDERED: SUBLIMAZE IV NR (11:00)
[2018-09-20] MEDS ORDERED: KIONEX PO ONE ×2 (11:00→22:19)
[2018-09-20] MEDS: ZITHROMAX 500 MG in NACL 0.9% 250ML 250 ML IV SCH (12:11)
[2018-09-20] MEDS: LOVENOX SUB-Q SCH (22:34)
[2018-09-20] MEDS: BENADRYL PO SCH (22:34)
[2018-09-21] MEDS: LASIX IV SCH ×2 (05:35→18:37)
[2018-09-21 06:35] LABS: Basophils % (Auto) 0.4 % (0.0-1.8); Eosinophils # (Auto) 0.1 K/mm3 (0.0-0.4); Eosinophils % (Auto) 2.8 % (0.0-4.3); Hematocrit 24.1 % (30.3-42.9); Hemoglobin 7.8 gm/dl (10.1-14.3); Lymphocytes # (Auto) 1.3 K/mm3 (1.2-5.4); Lymphocytes % (Auto) 24.1 % (13.4-35.0); Mean Corpuscular HGB Conc 32 % (30-34); Mean Corpuscular Volume 85 fl (79-97); Monocytes # (Auto) 0.7 K/mm3 (0.0-0.8); Monocytes % (Auto) 12.9 % (0.0-7.3); Platelet Count 205 K/mm3 (140-440); Red Blood Count 2.84 M/mm3 (3.65-5.03); Red Cell Distribution Width 19.8 % (13.2-15.2)
[2018-09-21 07:01] LABS: Calcium 7.3 mg/dL (8.4-10.2)
[2018-09-21] MEDS: ROCEPHIN/NS 1 GM/50 ML 1 GM/50 ML BAG IV SCH (09:57)
[2018-09-21] MEDS: SODIUM CHLORIDE FLUSH SYRINGE 10 ML IV SCH ×2 (09:59→22:09)
--- NOTE | 2018-09-21 10:09 | Progress Note ---
Assessment and Plan 1. Nephrotic syndrome: Etiology includes FSGS, Minimal change, Membranous and Lupus nephritis. Will repeat Urine protein quantification pending. Complements are negative. BI, ANCA and SPEP are pending. Patient refused kidney biospy. Patient is on Lovenox to prevent DVT. Continue Statin. 2. Acute kidney injury: Likely related Nephrotic syndrome. Renal US was negative. 3. Hyperkalemia: Kayexalate. 4. HTN. 5. Volume overload: Continue Lasix. 6. Anemia: Present on admission. 7. Medical non-compliance. Subjective Date of service: 09/21/18 Interval history: Patient is doing ok. Objective - Vital Signs Vital signs: Vital Signs - 12hr 09/21/18 05:09 Temperature 98.0 F Pulse Rate 102 H Respiratory 18 Rate Blood Pressure 145/74 O2 Sat by Pulse 98 Oximetry - General Appearance General appearance: well-developed, well-nourished, appears stated age, obese, other (not in distress) EENT: ATNC, PERRL, mucous membranes moist, hearing intact, vision intact Neck: supple Respiratory: Present: Clear to Ascultation Cardiology: regular, S1S2, no murmurs Gastrointestinal: normoactive bowel sounds, no tenderness, no distended, obese Integumentary: no rash, warm and dry Neurologic: no focal deficit, no asterixis, alert and oriented x3 Musculoskeletal: other (2+ edema of both LEs noted) - Lab 09/21/18 06:13 09/21/18 06:13 Most recent lab results Calcium 7.3 mg/dL (8.4-10.2) L 09/21/18 06:13 Phosphorus 4.00 mg/dL (2.5-4.5) 09/19/18 05:45 Magnesium 2.60 mg/dL (1.7-2.3) H 09/17/18 15:17 Urine Creatinine 147.5 mg/dL (0.1-20.0) H 09/18/18 10:30 Ur Total Protein 24 Hr 1073.50 mg/dL (2-200) H 09/18/18 10:30 Urine Sodium 26 mmol/L 09/18/18 10:30 Urine Total Protein 226 mg/dL (5-11.8) H 09/18/18 10:30 Medications & Allergies - Medications Allergies/Adverse Reactions: Allergies No Known Allergies Allergy (Unverified 09/17/18 15:05) Home Medications: Home Medications Medication Instructions Recorded Confirmed Last Taken Type Divalproex Sodium [Depakote] 500 mg PO BID 09/17/18 09/17/18 Unknown History Haldol (Nf) 09/17/18 Unknown History Invega Sustenna 09/17/18 Unknown History diphenhydrAMINE [Benadryl CAP] 50 mg PO HS 09/17/18 09/17/18 Unknown History Active Medications: Generic Name Dose Route Start Last Admin Trade Name Freq PRN Reason Stop Dose Admin Acetaminophen 650 mg 09/18/18 02:40 09/18/18 17:56 Tylenol PO 650 mg Q4H PRN Administration Pain MILD(1-3)/Fever >100.5/MENDOZA Atorvastatin Calcium 40 mg 09/18/18 22:00 09/20/18 22:33 Lipitor PO 40 mg QHS LUZ Administration Diphenhydramine HCl 50 mg 09/18/18 22:00 09/20/18 22:34 Benadryl PO Not Given HS LUZ Divalproex Sodium 500 mg 09/18/18 10:00 09/21/18 09:[address] PO 500 mg BID LUZ Administration Enoxaparin Sodium 30 mg 09/20/18 22:00 09/20/18 22:34 Lovenox SUB-Q 30 mg QDAY@2200 LUZ Administration Furosemide 40 mg 09/18/18 06:00 09/21/18 05:35 Lasix IV 40 mg 0600,1800 LUZ Administration Hydromorphone HCl 0.5 mg 09/18/18 02:40 Dilaudid IV Q3H PRN Pain , Severe (7-10) Azithromycin 500 mg/ Sodium 250 mls @ 250 mls/hr 09/18/18 10:00 09/20/18 12:11 Chloride IV 250 mls/hr Q24HR LUZ Administration Ceftriaxone Sodium 1 gm in 50 mls @ 100 mls/hr 09/18/18 10:00 09/21/18 09:57 Rocephin/Ns 1 Gm/50 Ml IV 100 mls/hr Q24HR LUZ Administration Protocol Ondansetron HCl 4 mg 09/18/18 02:40 Zofran IV Q8H PRN Nausea And Vomiting Oxycodone/Acetaminophen 1 tab 09/18/18 02:40 Percocet 5/325 PO Q6H PRN Pain, Moderate (4-6) Sodium Chloride 10 ml 09/18/18 10:00 09/21/18 09:59 Sodium Chloride Flush Syringe 10 Ml IV 10 ml BID LUZ Administration Sodium Chloride 10 ml 09/18/18 02:40 Sodium Chloride Flush Syringe 10 Ml IV PRN PRN LINE FLUSH
[2018-09-21 10:24] LABS: Creatinine,Urine 97.5 mg/dL (0.1-20.0)
--- NOTE | 2018-09-21 10:32 | Progress Note ---
Assessment and Plan Assessment and plan: Nephrotic syndrome. Urine protein quantification pending. Follow BI, ANCA and complements. Etiology include FSGS, Minimal change, Membranous and Lupus nephritis. Renal ultrasound negative. Patient unfortunately refused kidney biopsy. Hyperkalemia. Kayexalate. Recheck BMP in the morning. Sepsis. Present on admission. Continue IV antibiotics. Etiology secondary to pneumonia and UTI. Left lower lobe pneumonia. Continue IV antibiotics. UTI. Continue Rocephin. Bipolar disorder. Continue current medications. Deconditioning. PT/OT evaluation. Await recommendations History Interval history: No new issues overnight Hospitalist Physical - Constitutional Vitals: Temp Pulse Resp BP Pulse Ox 98.0 F 102 H 18 145/74 98 09/21/18 05:09 09/21/18 05:09 09/21/18 05:09 09/21/18 05:09 09/21/18 05:09 General appearance: Present: no acute distress, well-nourished - EENT Eyes: Present: PERRL, EOM intact ENT: hearing intact, clear oral mucosa, dentition normal - Neck Neck: Present: supple, normal ROM - Respiratory Respiratory effort: normal Respiratory: bilateral: CTA - Cardiovascular Rhythm: regular Heart Sounds: Present: S1 & S2. Absent: gallop, rub - Extremities Extremities: no ischemia, No edema, Full ROM - Abdominal General gastrointestinal: soft, non-tender, non-distended, normal bowel sounds - Integumentary Integumentary: Present: clear, warm, dry - Neurologic Neurologic: CNII-XII intact, moves all extremities Results - Labs CBC & Chem 7: 09/21/18 06:13 09/21/18 06:13 Labs: Laboratory Last Values WBC 5.2 K/mm3 (4.5-11.0) 09/21/18 06:13 RBC 2.84 M/mm3 (3.65-5.03) L 09/21/18 06:13 Hgb 7.8 gm/dl (10.1-14.3) L 09/21/18 06:13 Hct 24.1 % (30.3-42.9) L 09/21/18 06:13 MCV 85 fl (79-97) 09/21/18 06:13 MCH 27 pg (28-32) L 09/21/18 06:13 MCHC 32 % (30-34) 09/21/18 06:13 RDW 19.8 % (13.2-15.2) H 09/21/18 06:13 Plt Count 205 K/mm3 (140-440) 09/21/18 06:13 Lymph % (Auto) 24.1 % (13.4-35.0) 09/21/18 06:13 [place] % (Auto) 12.9 % (0.0-7.3) H 09/21/18 06:13 Eos % (Auto) 2.8 % (0.0-4.3) 09/21/18 06:13 Baso % (Auto) 0.4 % (0.0-1.8) 09/21/18 06:13 Lymph # 1.3 K/mm3 (1.2-5.4) 09/21/18 06:13 [place]ue # 0.7 K/mm3 (0.0-0.8) 09/21/18 06:13 Eos # 0.1 K/mm3 (0.0-0.4) 09/21/18 06:13 Baso # 0.0 K/mm3 (0.0-0.1) 09/21/18 06:13 Seg Neutrophils % 59.8 % (40.0-70.0) 09/21/18 06:13 Seg Neutrophils # 3.1 K/mm3 (1.8-7.7) 09/21/18 06:13 PT 13.0 Sec. (12.2-14.9) 09/17/18 15:17 INR 0.93 (0.87-1.13) 09/17/18 15:17 APTT 22.2 Sec. (24.2-36.6) L 09/17/18 15:17 Sodium 141 mmol/L (137-145) 09/21/18 06:13 Potassium 5.2 mmol/L (3.6-5.0) H 09/21/18 06:13 Chloride 108.2 mmol/L (98-107) H 09/21/18 06:13 Carbon Dioxide 23 mmol/L (22-30) 09/21/18 06:13 Anion Gap 15 mmol/L 09/21/18 06:13 BUN 39 mg/dL (7-17) H 09/21/18 06:13 Creatinine 2.7 mg/dL (0.7-1.2) H 09/21/18 06:13 Estimated GFR 23 ml/min 09/21/18 06:13 BUN/Creatinine Ratio 14 % 09/21/18 06:13 Glucose 90 mg/dL (65-100) 09/21/18 06:13 Calcium 7.3 mg/dL (8.4-10.2) L 09/21/18 06:13 Phosphorus 4.00 mg/dL (2.5-4.5) 09/19/18 05:45 Magnesium 2.60 mg/dL (1.7-2.3) H 09/17/18 15:17 Total Bilirubin < 0.20 mg/dL (0.1-1.2) 09/18/18 05:22 AST 13 units/L (5-40) 09/18/18 05:22 ALT 6 units/L (7-56) L 09/18/18 05:22 Alkaline Phosphatase 51 units/L (35-129) 09/18/18 05:22 Troponin T 0.012 ng/mL (0.00-0.029) 09/17/18 15:17 NT-Pro-B Natriuret Pep 992.5 pg/mL (0-450) H 09/17/18 15:17 Total Protein 3.9 g/dL (6.3-8.2) L 09/18/18 05:22 Albumin 1.4 g/dL (3.9-5) L 09/18/18 05:22 Albumin/Globulin Ratio 0.6 % 09/18/18 05:22 PTH Intact 46.07 pg/mL (15-65) 09/19/18 05:45 Urine Color Yellow (Yellow) 09/17/18 17:18 Urine Turbidity Cloudy (Clear) 09/17/18 17:18 Urine pH 5.0 (5.0-7.0) 09/17/18 17:18 Ur Specific [place] 1.029 (1.003-1.030) 09/17/18 17:18 Urine Protein >500 mg/dL (Negative) 09/17/18 17:18 Urine Glucose (UA) Neg mg/dL (Negative) 09/17/18 17:18 Urine Ketones Tr mg/dL (Negative) 09/17/18 17:18 Urine Blood Sm (Negative) 09/17/18 17:18 Urine Nitrite Neg (Negative) 09/17/18 17:18 Urine Bilirubin Neg (Negative) 09/17/18 17:18 Urine Urobilinogen < 2.0 mg/dL (<2.0) 09/17/18 17:18 Ur Leukocyte Esterase Neg (Negative) 09/17/18 17:18 Urine WBC (Auto) 15.0 /HPF (0.0-6.0) H 09/17/18 17:18 Urine RBC (Auto) 13.0 /HPF (0.0-6.0) 09/17/18 17:18 U Epithel Cells (Auto) 6.0 /HPF (0-13.0) 09/17/18 17:18 Urine Bacteria (Auto) 2+ /HPF (Negative) 09/17/18 17:18 Urine WBC Clumps 2+ /HPF 09/17/18 17:18 Hyaline Casts 6 /LPF 09/17/18 17:18 Urine Mucus Few /HPF 09/17/18 17:18 Urine Yeast (Budding) 2+ /HPF 09/17/18 17:18 Urine Eosinophils None seen (None Seen) 09/18/18 10:30 Urine Total Volume 475 ml 09/18/18 10:30 Urine Creatinine 97.5 mg/dL (0.1-20.0) H 09/21/18 07:00 Ur Creatinine 24 Hour 0.7 (0.8-2.8) L 09/18/18 10:30 Ur Total Protein 24 Hr 1073.50 mg/dL (2-200) H 09/18/18 10:30 Protein/Creatinin Ratio 1.53 09/18/18 10:30 Urine Sodium 53 mmol/L 09/21/18 07:00 Urine Urea Nitrogen 467 09/18/18 10:30 Ur Urea Nitrogen 24 Hr 2.22 09/18/18 10:30 Urine Total Protein 226 mg/dL (5-11.8) H 09/18/18 10:30 Urine Opiates Screen Presumptive negative 09/17/18 17:18 Urine Methadone Screen Presumptive negative 09/17/18 17:18 Ur Barbiturates Screen Presumptive negative 09/17/18 17:18 Ur Phencyclidine Scrn Presumptive negative 09/17/18 17:18 Ur Amphetamines Screen Presumptive negative 09/17/18 17:18 U Benzodiazepines Scrn Presumptive negative 09/17/18 17:18 Urine Cocaine Screen Presumptive negative 09/17/18 17:18 U Marijuana (THC) Screen Presumptive negative 09/17/18 17:18 Drugs of Abuse Note Disclamer 09/17/18 17:18 Hepatitis A IgM Ab Non-reactive (NonReactive) 09/19/18 05:45 Hep Bs Antigen Non-reactive (Negative) 09/19/18 05:45 Hep B Core IgM Ab Non-reactive (NonReactive) 09/19/18 05:45 Hepatitis C Antibody Non-reactive (NonReactive) 09/19/18 05:45
[2018-09-21 10:36] LABS: Protein/Creatinine Ratio,Urine 7.26
[2018-09-21] MEDS ORDERED: KIONEX PO ONE (11:00)
[2018-09-21] MEDS: ZITHROMAX 500 MG in NACL 0.9% 250ML 250 ML IV SCH (12:08)
[2018-09-21] MEDS: BENADRYL PO SCH (22:07)
[2018-09-21] MEDS: LOVENOX SUB-Q SCH (22:09)
[2018-09-21] MEDS: PERCOCET 5/325 PO PRN (22:11)
[2018-09-22] MEDS: LASIX IV SCH ×2 (06:49→18:14)
[2018-09-22] MEDS: APRESOLINE IV PRN ×2 (06:50→12:12)
--- NOTE | 2018-09-22 09:21 | Progress Note ---
Assessment and Plan 1. Nephrotic syndrome: Etiology includes FSGS, Minimal change, Membranous and Lupus nephritis. Complements are negative. BI, ANCA and SPEP are pending. Patient refused kidney biospy. Patient is on Lovenox to prevent DVT. Continue Statin. 2. Acute kidney injury: Renal US was negative. Likely related Nephrotic syndrome. Renal function continue to decline. Definitive treatment is not possible without kidney biopsy. 3. Hyperkalemia: Improved with Kayexalate. 4. HTN. 5. Volume overload: Continue Lasix. 6. Anemia: Present on admission. 7. Medical non-compliance. Subjective Date of service: 09/22/18 Interval history: Patient is doing ok. Objective - Vital Signs Vital signs: Vital Signs - 12hr 09/21/18 09/22/18 09/22/18 22:00 04:11 06:50 Temperature 98.5 F Pulse Rate 107 H 107 H Pulse Rate [ 107 H Left Radial] Respiratory 20 20 Rate Blood Pressure 194/135 194/135 Blood Pressure [Left] O2 Sat by Pulse 99 99 Oximetry 09/22/18 08:00 Temperature Pulse Rate 105 H Pulse Rate [ Left Radial] Respiratory Rate Blood Pressure Blood Pressure 138/70 [Left] O2 Sat by Pulse 99 Oximetry - General Appearance General appearance: well-developed, well-nourished, appears stated age, obese, other (not in distress) EENT: ATNC, PERRL, mucous membranes moist, hearing intact, vision intact Neck: supple Respiratory: Present: Clear to Ascultation Cardiology: regular, S1S2, no murmurs Gastrointestinal: normoactive bowel sounds, no tenderness, no distended, obese Integumentary: no rash, warm and dry Neurologic: no focal deficit, no asterixis, alert and oriented x3 Musculoskeletal: other (2+ edema of both LEs noted) - Lab 09/21/18 06:13 09/22/18 10:12 Most recent lab results Calcium 7.3 mg/dL (8.4-10.2) L 09/21/18 06:13 Phosphorus 4.00 mg/dL (2.5-4.5) 09/19/18 05:45 Magnesium 2.60 mg/dL (1.7-2.3) H 09/17/18 15:17 Urine Creatinine 97.5 mg/dL (0.1-20.0) H 09/21/18 07:00 Ur Total Protein 24 Hr 1073.50 mg/dL (2-200) H 09/18/18 10:30 Urine Sodium 53 mmol/L 09/21/18 07:00 Urine Total Protein 708 mg/dL (5-11.8) H 09/21/18 07:00 Medications & Allergies - Medications Allergies/Adverse Reactions: Allergies No Known Allergies Allergy (Unverified 09/17/18 15:05) Home Medications: Home Medications Medication Instructions Recorded Confirmed Last Taken Type Divalproex Sodium [Depakote] 500 mg PO BID 09/17/18 09/17/18 Unknown History Haldol (Nf) 09/17/18 Unknown History Invega Sustenna 09/17/18 Unknown History diphenhydrAMINE [Benadryl CAP] 50 mg PO HS 09/17/18 09/17/18 Unknown History Active Medications: Generic Name Dose Route Start Last Admin Trade Name Freq PRN Reason Stop Dose Admin Acetaminophen 650 mg 09/18/18 02:40 09/18/18 17:56 Tylenol PO 650 mg Q4H PRN Administration Pain MILD(1-3)/Fever >100.5/MENDOZA Atorvastatin Calcium 40 mg 09/18/18 22:00 09/21/18 22:08 Lipitor PO 40 mg QHS LUZ Administration Diphenhydramine HCl 50 mg 09/18/18 22:00 09/21/18 22:07 Benadryl PO 50 mg HS LUZ Administration Divalproex Sodium 500 mg 09/18/18 10:00 09/21/18 22:[address] PO 500 mg BID LUZ Administration Enoxaparin Sodium 30 mg 09/20/18 22:00 09/21/18 22:09 Lovenox SUB-Q 30 mg QDAY@2200 LUZ Administration Furosemide 40 mg 09/18/18 06:00 09/22/18 06:49 Lasix IV 40 mg 0600,1800 LUZ Administration Hydralazine HCl 10 mg 09/22/18 06:28 09/22/18 06:50 Apresoline IV 10 mg Q4H PRN Administration systolic b/p >165 Hydromorphone HCl 0.5 mg 09/18/18 02:40 Dilaudid IV Q3H PRN Pain , Severe (7-10) Azithromycin 500 mg/ Sodium 250 mls @ 250 mls/hr 09/18/18 10:00 09/21/18 12:08 Chloride IV 250 mls/hr Q24HR LUZ Administration Ceftriaxone Sodium 1 gm in 50 mls @ 100 mls/hr 09/18/18 10:00 09/21/18 09:57 Rocephin/Ns 1 Gm/50 Ml IV 100 mls/hr Q24HR LUZ Administration Protocol Ondansetron HCl 4 mg 09/18/18 02:40 Zofran IV Q8H PRN Nausea And Vomiting Oxycodone/Acetaminophen 1 tab 09/18/18 02:40 09/21/18 22:11 Percocet 5/325 PO 1 tab Q6H PRN Administration Pain, Moderate (4-6) Sodium Chloride 10 ml 09/18/18 10:00 09/21/18 22:09 Sodium Chloride Flush Syringe 10 Ml IV 10 ml BID LUZ Administration Sodium Chloride 10 ml 09/18/18 02:40 Sodium Chloride Flush Syringe 10 Ml IV PRN PRN LINE FLUSH
[2018-09-22] MEDS: ROCEPHIN/NS 1 GM/50 ML 1 GM/50 ML BAG IV SCH (10:43)
[2018-09-22] MEDS: SODIUM CHLORIDE FLUSH SYRINGE 10 ML IV SCH ×2 (10:51→21:47)
[2018-09-22 10:53] LABS: Calcium 7.1 mg/dL (8.4-10.2)
--- NOTE | 2018-09-22 12:01 | Progress Note ---
Assessment and Plan Assessment and plan: Right lower extremity thigh pain. Doppler lower extremities bilaterally. Consider CT scan of the lower extremities. Nephrotic syndrome. Urine protein quantification pending. Follow BI, ANCA and complements. Etiology include FSGS, Minimal change, Membranous and Lupus nephritis. Renal ultrasound negative. Patient unfortunately refused kidney biopsy. Hyperkalemia. Kayexalate. Recheck BMP in the morning. Sepsis. Present on admission. Continue IV antibiotics. Etiology secondary to pneumonia and UTI. Left lower lobe pneumonia. Continue IV antibiotics. UTI. Continue Rocephin. Bipolar disorder. Continue current medications. Deconditioning. PT/OT evaluation. Await recommendations History Interval history: No new issues overnight Hospitalist Physical - Constitutional Vitals: Temp Pulse Resp BP Pulse Ox 98.5 F 105 H 20 138/70 99 09/22/18 04:11 09/22/18 08:00 09/22/18 04:11 09/22/18 08:00 09/22/18 08:00 General appearance: Present: no acute distress, well-nourished - EENT Eyes: Present: PERRL, EOM intact ENT: hearing intact, clear oral mucosa, dentition normal - Neck Neck: Present: supple, normal ROM - Respiratory Respiratory effort: normal Respiratory: bilateral: CTA - Cardiovascular Rhythm: regular Heart Sounds: Present: S1 & S2. Absent: gallop, rub - Extremities Extremities: no ischemia, No edema, Full ROM - Abdominal General gastrointestinal: soft, non-tender, non-distended, normal bowel sounds - Integumentary Integumentary: Present: clear, warm, dry - Neurologic Neurologic: CNII-XII intact, moves all extremities Results - Labs CBC & Chem 7: 09/21/18 06:13 09/22/18 10:12 Labs: Laboratory Last Values WBC 5.2 K/mm3 (4.5-11.0) 09/21/18 06:13 RBC 2.84 M/mm3 (3.65-5.03) L 09/21/18 06:13 Hgb 7.8 gm/dl (10.1-14.3) L 09/21/18 06:13 Hct 24.1 % (30.3-42.9) L 09/21/18 06:13 MCV 85 fl (79-97) 09/21/18 06:13 MCH 27 pg (28-32) L 09/21/18 06:13 MCHC 32 % (30-34) 09/21/18 06:13 RDW 19.8 % (13.2-15.2) H 09/21/18 06:13 Plt Count 205 K/mm3 (140-440) 09/21/18 06:13 Lymph % (Auto) 24.1 % (13.4-35.0) 09/21/18 06:13 Pet[place] % (Auto) 12.9 % (0.0-7.3) H 09/21/18 06:13 Eos % (Auto) 2.8 % (0.0-4.3) 09/21/18 06:13 Baso % (Auto) 0.4 % (0.0-1.8) 09/21/18 06:13 Lymph # 1.3 K/mm3 (1.2-5.4) 09/21/18 06:13 Petroleum # 0.7 K/mm3 (0.0-0.8) 09/21/18 06:13 Eos # 0.1 K/mm3 (0.0-0.4) 09/21/18 06:13 Baso # 0.0 K/mm3 (0.0-0.1) 09/21/18 06:13 Seg Neutrophils % 59.8 % (40.0-70.0) 09/21/18 06:13 Seg Neutrophils # 3.1 K/mm3 (1.8-7.7) 09/21/18 06:13 PT 13.0 Sec. (12.2-14.9) 09/17/18 15:17 INR 0.93 (0.87-1.13) 09/17/18 15:17 APTT 22.2 Sec. (24.2-36.6) L 09/17/18 15:17 Sodium 143 mmol/L (137-145) 09/22/18 10:12 Potassium 4.9 mmol/L (3.6-5.0) 09/22/18 10:12 Chloride 111.5 mmol/L (98-107) H 09/22/18 10:12 Carbon Dioxide 22 mmol/L (22-30) 09/22/18 10:12 Anion Gap 14 mmol/L 09/22/18 10:12 BUN 40 mg/dL (7-17) H 09/22/18 10:12 Creatinine 3.1 mg/dL (0.7-1.2) H 09/22/18 10:12 Estimated GFR 20 ml/min 09/22/18 10:12 BUN/Creatinine Ratio 13 % 09/22/18 10:12 Glucose 86 mg/dL (65-100) 09/22/18 10:12 Calcium 7.1 mg/dL (8.4-10.2) L 09/22/18 10:12 Phosphorus 4.00 mg/dL (2.5-4.5) 09/19/18 05:45 Magnesium 2.60 mg/dL (1.7-2.3) H 09/17/18 15:17 Total Bilirubin < 0.20 mg/dL (0.1-1.2) 09/18/18 05:22 AST 13 units/L (5-40) 09/18/18 05:22 ALT 6 units/L (7-56) L 09/18/18 05:22 Alkaline Phosphatase 51 units/L (35-129) 09/18/18 05:22 Troponin T 0.012 ng/mL (0.00-0.029) 09/17/18 15:17 NT-Pro-B Natriuret Pep 992.5 pg/mL (0-450) H 09/17/18 15:17 Total Protein 3.9 g/dL (6.3-8.2) L 09/18/18 05:22 Albumin 1.4 g/dL (3.9-5) L 09/18/18 05:22 Albumin/Globulin Ratio 0.6 % 09/18/18 05:22 PTH Intact 46.07 pg/mL (15-65) 09/19/18 05:45 Urine Color Yellow (Yellow) 09/17/18 17:18 Urine Turbidity Cloudy (Clear) 09/17/18 17:18 Urine pH 5.0 (5.0-7.0) 09/17/18 17:18 Ur Specific [place] 1.029 (1.003-1.030) 09/17/18 17:18 Urine Protein >500 mg/dL (Negative) 09/17/18 17:18 Urine Glucose (UA) Neg mg/dL (Negative) 09/17/18 17:18 Urine Ketones Tr mg/dL (Negative) 09/17/18 17:18 Urine Blood Sm (Negative) 09/17/18 17:18 Urine Nitrite Neg (Negative) 09/17/18 17:18 Urine Bilirubin Neg (Negative) 09/17/18 17:18 Urine Urobilinogen < 2.0 mg/dL (<2.0) 09/17/18 17:18 Ur Leukocyte Esterase Neg (Negative) 09/17/18 17:18 Urine WBC (Auto) 15.0 /HPF (0.0-6.0) H 09/17/18 17:18 Urine RBC (Auto) 13.0 /HPF (0.0-6.0) 09/17/18 17:18 U Epithel Cells (Auto) 6.0 /HPF (0-13.0) 09/17/18 17:18 Urine Bacteria (Auto) 2+ /HPF (Negative) 09/17/18 17:18 Urine WBC Clumps 2+ /HPF 09/17/18 17:18 Hyaline Casts 6 /LPF 09/17/18 17:18 Urine Mucus Few /HPF 09/17/18 17:18 Urine Yeast (Budding) 2+ /HPF 09/17/18 17:18 Urine Eosinophils None seen (None Seen) 09/18/18 10:30 Urine Total Volume 475 ml 09/18/18 10:30 Urine Creatinine 97.5 mg/dL (0.1-20.0) H 09/21/18 07:00 Ur Creatinine 24 Hour 0.7 (0.8-2.8) L 09/18/18 10:30 Ur Total Protein 24 Hr 1073.50 mg/dL (2-200) H 09/18/18 10:30 Protein/Creatinin Ratio 7.26 09/21/18 07:00 Urine Sodium 53 mmol/L 09/21/18 07:00 Urine Urea Nitrogen 467 09/18/18 10:30 Ur Urea Nitrogen 24 Hr 2.22 09/18/18 10:30 Urine Total Protein 708 mg/dL (5-11.8) H 09/21/18 07:00 Urine Opiates Screen Presumptive negative 09/17/18 17:18 Urine Methadone Screen Presumptive negative 09/17/18 17:18 Ur Barbiturates Screen Presumptive negative 09/17/18 17:18 Ur Phencyclidine Scrn Presumptive negative 09/17/18 17:18 Ur Amphetamines Screen Presumptive negative 09/17/18 17:18 U Benzodiazepines Scrn Presumptive negative 09/17/18 17:18 Urine Cocaine Screen Presumptive negative 09/17/18 17:18 U Marijuana (THC) Screen Presumptive negative 09/17/18 17:18 Drugs of Abuse Note Disclamer 09/17/18 17:18 Complement C3 143 mg/dL (83-193) 09/19/18 05:45 Complement C4 56 mg/dL (15-57) 09/19/18 05:45 Hepatitis A IgM Ab Non-reactive (NonReactive) 09/19/18 05:45 Hep Bs Antigen Non-reactive (Negative) 09/19/18 05:45 Hep B Core IgM Ab Non-reactive (NonReactive) 09/19/18 05:45 Hepatitis C Antibody Non-reactive (NonReactive) 09/19/18 05:45
[2018-09-22] MEDS: ZITHROMAX 500 MG in NACL 0.9% 250ML 250 ML IV SCH (12:15)
[2018-09-22] MEDS: ZOFRAN IV PRN (14:43)
--- NOTE | 2018-09-22 15:07 | Vascular Lab Report ---
PROCEDURE: VL VENOUS DUPLEX LE BILAT TECHNIQUE: Mcadams scale, color and pulsed Doppler ultrasound with color flow and spectral analysis eval uation of both lower extremities were performed to assess for deep vein thrombosis. HISTORY: LE pain and swelling COMPARISONS: None currently available. FINDINGS: RIGHT extremity: There is normal grayscale appearance and compressibility. Normal phasic pulsed Doppler and normal col or Doppler flow are visualized. The interrogated vessels show normal augmentation. LEFT extremity: There is normal grayscale appearance and compressibility. Normal phasic pulsed Doppler and normal col or Doppler flow are visualized. The interrogated vessels show normal augmentation. IMPRESSION: * No evidence for DVT. This document is electronically signed by Armando Melgar MD., September 22 2018 03:05:42 PM ET
[2018-09-22] MEDS: APRESOLINE PO SCH ×2 (18:14→21:47)
[2018-09-22] MEDS: TYLENOL PO PRN (18:15)
[2018-09-22] MEDS: BENADRYL PO SCH (21:48)
[2018-09-22] MEDS: LOVENOX SUB-Q SCH (22:11)
[2018-09-23] MEDS: LASIX IV SCH (05:44)
[2018-09-23] MEDS: APRESOLINE PO SCH ×3 (05:46→22:17)
[2018-09-23 06:34] LABS: Calcium 7.2 mg/dL (8.4-10.2)
--- NOTE | 2018-09-23 08:25 | Progress Note ---
Assessment and Plan 1. Acute kidney injury: Renal US was negative. Likely related Nephrotic syndrome. Renal function continue to decline. Definitive treatment is not possible without kidney biopsy. Patient is volume overloaded, has anasarca and suspected pulmonary edema. She requires hemodialysis today to treat volume overload and respiratory distress. Explained the indications, benefits and risks involved in hemodialysis. Patient refused hemodialysis and verbalized the risks of not doing hemodialysis. Also 2 nurses were at the bedside and tried to explain the importance of hemodialysis. No family member info on the file. Per patient her NOK is her sister, but dont know her phone number. 2. Nephrotic syndrome: Etiology includes FSGS, Minimal change, Membranous and Lupus nephritis. Complements are negative. BI, ANCA and SPEP are pending. Patient refused kidney biospy. Patient is on Lovenox to prevent DVT. Continue Statin. 3. Volume overload: Started on Lasix drip. 4. Hyperkalemia: Improved with Kayexalate. 5. HTN. 6. Anemia: Present on admission. 7. Medical non-compliance. Subjective Date of service: 09/23/18 Interval history: Patient was seen and examined at the bedside. C/o shortness of breath and not feeling well. Objective - Vital Signs Vital signs: Vital Signs - 12hr 09/22/18 09/22/18 09/22/18 21:47 22:00 23:18 Temperature 98.3 F Pulse Rate 101 H 103 H Pulse Rate [ 76 Left Radial] Respiratory 20 20 Rate Blood Pressure 156/86 138/93 O2 Sat by Pulse 92 Oximetry 09/23/18 09/23/18 05:20 05:46 Temperature 97.7 F Pulse Rate 120 H 120 H Pulse Rate [ Left Radial] Respiratory 20 Rate Blood Pressure 158/78 158/78 O2 Sat by Pulse 94 Oximetry - General Appearance General appearance: well-developed, well-nourished, appears stated age, obese, other (slight tachypnea) EENT: ATNC, PERRL, other (facila plethora noted) Neck: supple Respiratory: Present: Clear to Ascultation Cardiology: regular, S1S2, no murmurs Gastrointestinal: normoactive bowel sounds, no tenderness, no distended, obese Integumentary: no rash, warm and dry Neurologic: no focal deficit, no asterixis, alert and oriented x3 Musculoskeletal: other (2+ edema of both LEs noted) - Lab 03/08/19 06:13 09/23/18 04:40 Most recent lab results Calcium 7.2 mg/dL (8.4-10.2) L 09/23/18 04:40 Phosphorus 4.00 mg/dL (2.5-4.5) 09/19/18 05:45 Magnesium 2.60 mg/dL (1.7-2.3) H 09/17/18 15:17 Urine Creatinine 97.5 mg/dL (0.1-20.0) H 09/21/18 07:00 Ur Total Protein 24 Hr 1073.50 mg/dL (2-200) H 09/18/18 10:30 Urine Sodium 53 mmol/L 09/21/18 07:00 Urine Total Protein 708 mg/dL (5-11.8) H 09/21/18 07:00 Medications & Allergies - Medications Allergies/Adverse Reactions: Allergies No Known Allergies Allergy (Unverified 09/17/18 15:05) Home Medications: Home Medications Medication Instructions Recorded Confirmed Last Taken Type Divalproex Sodium [Depakote] 500 mg PO BID 09/17/18 09/17/18 Unknown History Haldol (Nf) 09/17/18 Unknown History Invega Sustenna 09/17/18 Unknown History diphenhydrAMINE [Benadryl CAP] 50 mg PO HS 09/17/18 09/17/18 Unknown History Active Medications: Generic Name Dose Route Start Last Admin Trade Name Freq PRN Reason Stop Dose Admin Acetaminophen 650 mg 09/18/18 02:40 09/22/18 18:15 Tylenol PO 650 mg Q4H PRN Administration Pain MILD(1-3)/Fever >100.5/MENDOZA Atorvastatin Calcium 40 mg 09/18/18 22:00 09/22/18 21:48 Lipitor PO 40 mg QHS LUZ Administration Diphenhydramine HCl 50 mg 09/18/18 22:00 09/22/18 21:48 Benadryl PO 50 mg HS LUZ Administration Divalproex Sodium 500 mg 09/18/18 10:00 09/22/18 21:[address] PO 500 mg BID LUZ Administration Enoxaparin Sodium 30 mg 09/20/18 22:00 09/22/18 22:11 Lovenox SUB-Q Not Given QDAY@2200 LUZ Furosemide 40 mg 09/18/18 06:00 09/23/18 05:44 Lasix IV 40 mg 0600,1800 LUZ Administration Hydralazine HCl 10 mg 09/22/18 06:28 09/22/18 12:12 Apresoline IV 10 mg Q4H PRN Administration systolic b/p >165 Hydralazine HCl 50 mg 09/22/18 14:00 09/23/18 05:46 Apresoline PO 50 mg Q8HR LUZ Administration Hydromorphone HCl 0.5 mg 09/18/18 02:40 Dilaudid IV Q3H PRN Pain , Severe (7-10) Azithromycin 500 mg/ Sodium 250 mls @ 250 mls/hr 09/18/18 10:00 09/22/18 12:15 Chloride IV 250 mls/hr Q24HR LUZ Administration Ceftriaxone Sodium 1 gm in 50 mls @ 100 mls/hr 09/18/18 10:00 09/22/18 10:43 Rocephin/Ns 1 Gm/50 Ml IV 100 mls/hr Q24HR LUZ Administration Protocol Ondansetron HCl 4 mg 09/18/18 02:40 09/22/18 14:43 Zofran IV 4 mg Q8H PRN Administration Nausea And Vomiting Oxycodone/Acetaminophen 1 tab 09/18/18 02:40 09/21/18 22:11 Percocet 5/325 PO 1 tab Q6H PRN Administration Pain, Moderate (4-6) Sodium Chloride 10 ml 09/18/18 10:00 09/22/18 21:47 Sodium Chloride Flush Syringe 10 Ml IV 10 ml BID LUZ Administration Sodium Chloride 10 ml 09/18/18 02:40 Sodium Chloride Flush Syringe 10 Ml IV PRN PRN LINE FLUSH
[2018-09-23] MEDS: ZOFRAN IV PRN (08:45)
[2018-09-23] MEDS: ROCEPHIN/NS 1 GM/50 ML 1 GM/50 ML BAG IV SCH (10:21)
[2018-09-23] MEDS: ZITHROMAX 500 MG in NACL 0.9% 250ML 250 ML IV SCH (11:16)
--- NOTE | 2018-09-23 11:16 | Progress Note ---
Assessment and Plan Assessment and plan: Coffee-ground emesis. Nurse reports that she witnessed coffee-ground emesis this morning. GI consultation. H&H stable. Right lower extremity thigh pain. Doppler lower extremities bilaterally negative for DVT Left breast swelling. Check ultrasound. Nephrotic syndrome. Urine protein quantification pending. Follow BI, ANCA and complements. Etiology include FSGS, Minimal change, Membranous and Lupus nephritis. Renal ultrasound negative. Patient unfortunately refused kidney biopsy. Hyperkalemia. Kayexalate. Recheck BMP in the morning. Sepsis. Present on admission. Continue IV antibiotics. Etiology secondary to pneumonia and UTI. Left lower lobe pneumonia. Continue IV antibiotics. UTI. Continue Rocephin. Bipolar disorder. Continue current medications. Deconditioning. PT/OT evaluation. Await recommendations Disposition. Psychiatrist's Dr. Tatum would like to be notified with updates of care. [phone]. If Dr. Tatum is not available, contact coordinator of care Rao Galeas [phone] History Interval history: No new issues overnight. However, nursing reports coffee-ground emesis this morning. Nurse also reports some swelling of the left breast. Hospitalist Physical - Constitutional Vitals: Temp Pulse Resp BP Pulse Ox 97.7 F 120 H 20 158/78 94 09/23/18 05:20 09/23/18 05:46 09/23/18 05:20 09/23/18 05:46 09/23/18 05:20 General appearance: Present: no acute distress, well-nourished - EENT Eyes: Present: PERRL, EOM intact ENT: hearing intact, clear oral mucosa, dentition normal - Neck Neck: Present: supple, normal ROM - Respiratory Respiratory effort: normal Respiratory: bilateral: CTA - Cardiovascular Rhythm: regular Heart Sounds: Present: S1 & S2. Absent: gallop, rub - Extremities Extremities: no ischemia, No edema, Full ROM - Abdominal General gastrointestinal: soft, non-tender, non-distended, normal bowel sounds - Integumentary Integumentary: Present: clear, warm, dry - Neurologic Neurologic: CNII-XII intact, moves all extremities Results - Labs CBC & Chem 7: 09/21/18 06:13 09/23/18 04:40 Labs: Laboratory Last Values WBC 5.2 K/mm3 (4.5-11.0) 09/21/18 06:13 RBC 2.84 M/mm3 (3.65-5.03) L 09/21/18 06:13 Hgb 7.8 gm/dl (10.1-14.3) L 09/21/18 06:13 Hct 24.1 % (30.3-42.9) L 09/21/18 06:13 MCV 85 fl (79-97) 09/21/18 06:13 MCH 27 pg (28-32) L 09/21/18 06:13 MCHC 32 % (30-34) 09/21/18 06:13 RDW 19.8 % (13.2-15.2) H 09/21/18 06:13 Plt Count 205 K/mm3 (140-440) 09/21/18 06:13 Lymph % (Auto) 24.1 % (13.4-35.0) 09/21/18 06:13 [place] % (Auto) 12.9 % (0.0-7.3) H 09/21/18 06:13 Eos % (Auto) 2.8 % (0.0-4.3) 09/21/18 06:13 Baso % (Auto) 0.4 % (0.0-1.8) 09/21/18 06:13 Lymph # 1.3 K/mm3 (1.2-5.4) 09/21/18 06:13 [place] # 0.7 K/mm3 (0.0-0.8) 09/21/18 06:13 Eos # 0.1 K/mm3 (0.0-0.4) 09/21/18 06:13 Baso # 0.0 K/mm3 (0.0-0.1) 09/21/18 06:13 Seg Neutrophils % 59.8 % (40.0-70.0) 09/21/18 06:13 Seg Neutrophils # 3.1 K/mm3 (1.8-7.7) 09/21/18 06:13 PT 13.0 Sec. (12.2-14.9) 09/17/18 15:17 INR 0.93 (0.87-1.13) 09/17/18 15:17 APTT 22.2 Sec. (24.2-36.6) L 09/17/18 15:17 Sodium 140 mmol/L (137-145) 09/23/18 04:40 Potassium 4.8 mmol/L (3.6-5.0) 09/23/18 04:40 Chloride 109.1 mmol/L (98-107) H 09/23/18 04:40 Carbon Dioxide 22 mmol/L (22-30) 09/23/18 04:40 Anion Gap 14 mmol/L 09/23/18 04:40 BUN 42 mg/dL (7-17) H 09/23/18 04:40 Creatinine 3.8 mg/dL (0.7-1.2) H 09/23/18 04:40 Estimated GFR 15 ml/min 09/23/18 04:40 BUN/Creatinine Ratio 11 % 09/23/18 04:40 Glucose 94 mg/dL (65-100) 09/23/18 04:40 Calcium 7.2 mg/dL (8.4-10.2) L 09/23/18 04:40 Phosphorus 4.00 mg/dL (2.5-4.5) 09/19/18 05:45 Magnesium 2.60 mg/dL (1.7-2.3) H 09/17/18 15:17 Total Bilirubin < 0.20 mg/dL (0.1-1.2) 09/18/18 05:22 AST 13 units/L (5-40) 09/18/18 05:22 ALT 6 units/L (7-56) L 09/18/18 05:22 Alkaline Phosphatase 51 units/L (35-129) 09/18/18 05:22 Troponin T 0.012 ng/mL (0.00-0.029) 09/17/18 15:17 NT-Pro-B Natriuret Pep 992.5 pg/mL (0-450) H 09/17/18 15:17 Total Protein 3.9 g/dL (6.3-8.2) L 09/18/18 05:22 Albumin 1.4 g/dL (3.9-5) L 09/18/18 05:22 Albumin/Globulin Ratio 0.6 % 09/18/18 05:22 PTH Intact 46.07 pg/mL (15-65) 09/19/18 05:45 Urine Color Yellow (Yellow) 09/17/18 17:18 Urine Turbidity Cloudy (Clear) 09/17/18 17:18 Urine pH 5.0 (5.0-7.0) 09/17/18 17:18 Ur Specific [place] 1.029 (1.003-1.030) 09/17/18 17:18 Urine Protein >500 mg/dL (Negative) 09/17/18 17:18 Urine Glucose (UA) Neg mg/dL (Negative) 09/17/18 17:18 Urine Ketones Tr mg/dL (Negative) 09/17/18 17:18 Urine Blood Sm (Negative) 09/17/18 17:18 Urine Nitrite Neg (Negative) 09/17/18 17:18 Urine Bilirubin Neg (Negative) 09/17/18 17:18 Urine Urobilinogen < 2.0 mg/dL (<2.0) 09/17/18 17:18 Ur Leukocyte Esterase Neg (Negative) 09/17/18 17:18 Urine WBC (Auto) 15.0 /HPF (0.0-6.0) H 09/17/18 17:18 Urine RBC (Auto) 13.0 /HPF (0.0-6.0) 09/17/18 17:18 U Epithel Cells (Auto) 6.0 /HPF (0-13.0) 09/17/18 17:18 Urine Bacteria (Auto) 2+ /HPF (Negative) 09/17/18 17:18 Urine WBC Clumps 2+ /HPF 09/17/18 17:18 Hyaline Casts 6 /LPF 09/17/18 17:18 Urine Mucus Few /HPF 09/17/18 17:18 Urine Yeast (Budding) 2+ /HPF 09/17/18 17:18 Urine Eosinophils None seen (None Seen) 09/18/18 10:30 Urine Total Volume 475 ml 09/18/18 10:30 Urine Creatinine 97.5 mg/dL (0.1-20.0) H 09/21/18 07:00 Ur Creatinine 24 Hour 0.7 (0.8-2.8) L 09/18/18 10:30 Ur Total Protein 24 Hr 1073.50 mg/dL (2-200) H 09/18/18 10:30 Protein/Creatinin Ratio 7.26 09/21/18 07:00 Urine Sodium 53 mmol/L 09/21/18 07:00 Urine Urea Nitrogen 467 09/18/18 10:30 Ur Urea Nitrogen 24 Hr 2.22 09/18/18 10:30 Urine Total Protein 708 mg/dL (5-11.8) H 09/21/18 07:00 Urine Opiates Screen Presumptive negative 09/17/18 17:18 Urine Methadone Screen Presumptive negative 09/17/18 17:18 Ur Barbiturates Screen Presumptive negative 09/17/18 17:18 Ur Phencyclidine Scrn Presumptive negative 09/17/18 17:18 Ur Amphetamines Screen Presumptive negative 09/17/18 17:18 U Benzodiazepines Scrn Presumptive negative 09/17/18 17:18 Urine Cocaine Screen Presumptive negative 09/17/18 17:18 U Marijuana (THC) Screen Presumptive negative 09/17/18 17:18 Drugs of Abuse Note Disclamer 09/17/18 17:18 Complement C3 143 mg/dL (83-193) 09/19/18 05:45 Complement C4 56 mg/dL (15-57) 09/19/18 05:45 Hepatitis A IgM Ab Non-reactive (NonReactive) 09/19/18 05:45 Hep Bs Antigen Non-reactive (Negative) 09/19/18 05:45 Hep B Core IgM Ab Non-reactive (NonReactive) 09/19/18 05:45 Hepatitis C Antibody Non-reactive (NonReactive) 09/19/18 05:45
[2018-09-23] MEDS: SODIUM CHLORIDE FLUSH SYRINGE 10 ML IV SCH ×2 (11:17→22:17)
[2018-09-23] MEDS ORDERED: LASIX 80 MG in NACL 0.9% 50 ML IV ONE (13:00)
--- NOTE | 2018-09-23 13:37 | XRay Report ---
PROCEDURE: XR CHEST 1V AP TECHNIQUE: Single view chest HISTORY: sob COMPARISONS: Chest x-ray September 17, 2018 FINDINGS: Trachea midline. Heart size top normal. Increased airspace disease along the left heart border. Incre ased patchy airspace disease medial right base. Vascular and interstitial prominence stable. No pneum othorax. No sizable effusion. No acute bony abnormality IMPRESSION: Increased airspace disease along the left heart border and medial right base.. This document is electronically signed by Hernán Torres MD., September 23 2018 01:34:58 PM ET
[2018-09-23] MEDS ORDERED: LASIX 100 MG in NACL 0.9% 90 ML IV SCH (14:00)
[2018-09-23] MEDS: TYLENOL PO PRN (16:28)
[2018-09-23] MEDS: BENADRYL PO SCH (22:17)
[2018-09-23] MEDS: LOVENOX SUB-Q SCH (22:18)
[2018-09-23 23:01] LABS: Albumin 1.2 g/dL (3.8-4.8); Gamma Globulin 0.5 g/dL (0.8-1.7)
[2018-09-24] MEDS: APRESOLINE PO SCH ×4 (07:00→22:28)
--- NOTE | 2018-09-24 09:40 | Progress Note ---
Assessment and Plan 1. Acute kidney injury: Renal US was negative. Likely related Nephrotic syndrome. Renal function continue to decline. Patient with worsening volume overload, anasarca and suspected pulmonary edema. She requires hemodialysis radha to treat volume overload and respiratory distress. Explained the indications, benefits and risks involved in hemodialysis. Patient gave verbal consent to proceed with hemodialysis. Vascular consulted for placement of hemodialysis catheter. Bladder scan ordered. 2. Nephrotic syndrome: Etiology includes FSGS, Minimal change, Membranous and Lupus nephritis. Complements are negative. BI, ANCA and SPEP are pending. Patient is agreeable for kidney biospy. Patient is on Lovenox to prevent DVT. Continue Statin. 3. Volume overload: UF with HD On Lasix. 4. Hyperkalemia: Improved with Kayexalate. 5. HTN. 6. Anemia: Present on admission. 7. Medical non-compliance. Subjective Date of service: 09/24/18 Interval history: Patient was seen and examined at the bedside. C/o shortness of breath and not feeling well. Objective - Vital Signs Vital signs: Vital Signs - 12hr 09/23/18 09/24/18 09/24/18 22:12 00:01 05:52 Temperature 98.8 F 97.5 F L 98.0 F Pulse Rate 107 H 116 H 109 H Respiratory 18 18 18 Rate Blood Pressure 138/74 132/59 126/73 O2 Sat by Pulse 97 92 97 Oximetry - General Appearance General appearance: well-developed, well-nourished, appears stated age, obese, other (facial plethora noted) EENT: ATNC, PERRL Neck: supple Respiratory: Present: Clear to Ascultation Cardiology: regular, S1S2, no murmurs Gastrointestinal: normoactive bowel sounds, no tenderness, obese Integumentary: no rash Neurologic: no focal deficit, no asterixis, alert and oriented x3 Musculoskeletal: other (2+ edema of both LEs noted) - Lab 09/21/18 06:13 09/23/18 04:40 Most recent lab results Calcium 7.2 mg/dL (8.4-10.2) L 09/23/18 04:40 Phosphorus 4.00 mg/dL (2.5-4.5) 09/19/18 05:45 Magnesium 2.60 mg/dL (1.7-2.3) H 09/17/18 15:17 Urine Creatinine 97.5 mg/dL (0.1-20.0) H 09/21/18 07:00 Ur Total Protein 24 Hr 1073.50 mg/dL (2-200) H 09/18/18 10:30 Urine Sodium 53 mmol/L 09/21/18 07:00 Urine Total Protein 708 mg/dL (5-11.8) H 09/21/18 07:00 Medications & Allergies - Medications Allergies/Adverse Reactions: Allergies No Known Allergies Allergy (Unverified 09/17/18 15:05) Home Medications: Home Medications Medication Instructions Recorded Confirmed Last Taken Type Divalproex Sodium [Depakote] 500 mg PO BID 09/17/18 09/17/18 Unknown History Haldol (Nf) 09/17/18 Unknown History Invega Sustenna 09/17/18 Unknown History diphenhydrAMINE [Benadryl CAP] 50 mg PO HS 09/17/18 09/17/18 Unknown History Active Medications: Generic Name Dose Route Start Last Admin Trade Name Freq PRN Reason Stop Dose Admin Acetaminophen 650 mg 09/18/18 02:40 09/23/18 16:28 Tylenol PO 650 mg Q4H PRN Administration Pain MILD(1-3)/Fever >100.5/MENDOZA Atorvastatin Calcium 40 mg 09/18/18 22:00 09/23/18 22:17 Lipitor PO 40 mg QHS LUZ Administration Diphenhydramine HCl 50 mg 09/18/18 22:00 09/23/18 22:17 Benadryl PO 50 mg HS LUZ Administration Divalproex Sodium 500 mg 09/18/18 10:00 09/23/18 22:[address] PO 500 mg BID LUZ Administration Enoxaparin Sodium 30 mg 09/20/18 22:00 09/23/18 22:18 Lovenox SUB-Q Not Given QDAY@2200 LUZ Hydralazine HCl 10 mg 09/22/18 06:28 09/22/18 12:12 Apresoline IV 10 mg Q4H PRN Administration systolic b/p >165 Hydralazine HCl 50 mg 09/22/18 14:00 09/24/18 07:02 Apresoline PO Not Given Q8HR LUZ Hydromorphone HCl 0.5 mg 09/18/18 02:40 Dilaudid IV Q3H PRN Pain , Severe (7-10) Azithromycin 500 mg/ Sodium 250 mls @ 250 mls/hr 09/18/18 10:00 09/23/18 11:16 Chloride IV 250 mls/hr Q24HR LUZ Administration Furosemide 100 mg/ Sodium 100 mls @ 10 mls/hr 09/23/18 14:00 Chloride IV DIRECT LUZ 10 MG/HR Ceftriaxone Sodium 1 gm in 50 mls @ 100 mls/hr 09/24/18 10:00 Rocephin/Ns 1 Gm/50 Ml IV Q24HR LUZ Protocol Ondansetron HCl 4 mg 09/18/18 02:40 09/23/18 08:45 Zofran IV 4 mg Q8H PRN Administration Nausea And Vomiting Oxycodone/Acetaminophen 1 tab 09/18/18 02:40 09/21/18 22:11 Percocet 5/325 PO 1 tab Q6H PRN Administration Pain, Moderate (4-6) Sodium Chloride 10 ml 09/18/18 10:00 09/23/18 22:17 Sodium Chloride Flush Syringe 10 Ml IV 10 ml BID LUZ Administration Sodium Chloride 10 ml 09/18/18 02:40 Sodium Chloride Flush Syringe 10 Ml IV PRN PRN LINE FLUSH
[2018-09-24] MEDS: ZITHROMAX 500 MG in NACL 0.9% 250ML 250 ML IV SCH (09:45)
[2018-09-24] MEDS ORDERED: ROCEPHIN/NS 1 GM/50 ML 1 GM/50 ML BAG IV SCH (10:00)
--- NOTE | 2018-09-24 10:11 | Progress Note ---
Assessment and Plan Assessment and plan: Coffee-ground emesis. Nurse reports that she witnessed coffee-ground emesis this morning. GI consultation. H&H stable. Right lower extremity thigh pain. Doppler lower extremities bilaterally negative for DVT Left breast swelling. Check ultrasound. Medical noncompliance. Patient intermittently at times refusing care. Psych consultation pending for decision making capacity. Schizophrenia. As above. Psych consulted Nephrotic syndrome. Urine protein quantification pending. Follow BI, ANCA and complements. Etiology include FSGS, Minimal change, Membranous and Lupus nephritis. Renal ultrasound negative. Patient unfortunately refused kidney biopsy. Hyperkalemia. Kayexalate. Recheck BMP in the morning. Sepsis. Present on admission. Continue IV antibiotics. Etiology secondary to pneumonia and UTI. Left lower lobe pneumonia. Continue IV antibiotics. UTI. Continue Rocephin. Bipolar disorder. Continue current medications. Deconditioning. PT/OT evaluation. Await recommendations Disposition. Psychiatrist Dr. Tatum (with [place] [facility] and [facility]) notified with updates of care [phone]. If Dr. Tatum is not available, contact coordinator of care Rao Galeas [phone]. Both individuals updated History Interval history: No new issues overnight. However, nursing reports coffee-ground emesis yester day morning. No new episodes. Hospitalist Physical - Constitutional Vitals: Temp Pulse Resp BP Pulse Ox 98.0 F 109 H 18 126/73 97 09/24/18 05:52 09/24/18 05:52 09/24/18 05:52 09/24/18 05:52 09/24/18 05:52 General appearance: Present: no acute distress, well-nourished Results - Labs CBC & Chem 7: 09/21/18 06:13 09/23/18 04:40 Labs: Laboratory Last Values WBC 5.2 K/mm3 (4.5-11.0) 09/21/18 06:13 RBC 2.84 M/mm3 (3.65-5.03) L 09/21/18 06:13 Hgb 7.8 gm/dl (10.1-14.3) L 09/21/18 06:13 Hct 24.1 % (30.3-42.9) L 09/21/18 06:13 MCV 85 fl (79-97) 09/21/18 06:13 MCH 27 pg (28-32) L 09/21/18 06:13 MCHC 32 % (30-34) 09/21/18 06:13 RDW 19.8 % (13.2-15.2) H 09/21/18 06:13 Plt Count 205 K/mm3 (140-440) 09/21/18 06:13 Lymph % (Auto) 24.1 % (13.4-35.0) 09/21/18 06:13 Leslie % (Auto) 12.9 % (0.0-7.3) H 09/21/18 06:13 Eos % (Auto) 2.8 % (0.0-4.3) 09/21/18 06:13 Baso % (Auto) 0.4 % (0.0-1.8) 09/21/18 06:13 Lymph # 1.3 K/mm3 (1.2-5.4) 09/21/18 06:13 Leslie # 0.7 K/mm3 (0.0-0.8) 09/21/18 06:13 Eos # 0.1 K/mm3 (0.0-0.4) 09/21/18 06:13 Baso # 0.0 K/mm3 (0.0-0.1) 09/21/18 06:13 Seg Neutrophils % 59.8 % (40.0-70.0) 09/21/18 06:13 Seg Neutrophils # 3.1 K/mm3 (1.8-7.7) 09/21/18 06:13 PT 13.0 Sec. (12.2-14.9) 09/17/18 15:17 INR 0.93 (0.87-1.13) 09/17/18 15:17 APTT 22.2 Sec. (24.2-36.6) L 09/17/18 15:17 POC ABG pH 7.375 (7.35-7.45) 09/23/18 15:06 POC ABG pCO2 36.3 (35-45) 09/23/18 15:06 POC ABG pO2 99 (80-105) 09/23/18 15:06 POC ABG HCO3 21.2 09/23/18 15:06 POC ABG Total CO2 22 09/23/18 15:06 POC ABG O2 Sat 98 09/23/18 15:06 POC ABG Base Excess -4 09/23/18 15:06 FiO2 2 % 09/23/18 15:06 Sodium 140 mmol/L (137-145) 09/23/18 04:40 Potassium 4.8 mmol/L (3.6-5.0) 09/23/18 04:40 Chloride 109.1 mmol/L (98-107) H 09/23/18 04:40 Carbon Dioxide 22 mmol/L (22-30) 09/23/18 04:40 Anion Gap 14 mmol/L 09/23/18 04:40 BUN 42 mg/dL (7-17) H 09/23/18 04:40 Creatinine 3.8 mg/dL (0.7-1.2) H 09/23/18 04:40 Estimated GFR 15 ml/min 09/23/18 04:40 BUN/Creatinine Ratio 11 % 09/23/18 04:40 Glucose 94 mg/dL (65-100) 09/23/18 04:40 Calcium 7.2 mg/dL (8.4-10.2) L 09/23/18 04:40 Phosphorus 4.00 mg/dL (2.5-4.5) 09/19/18 05:45 Magnesium 2.60 mg/dL (1.7-2.3) H 09/17/18 15:17 Total Bilirubin < 0.20 mg/dL (0.1-1.2) 09/18/18 05:22 AST 13 units/L (5-40) 09/18/18 05:22 ALT 6 units/L (7-56) L 09/18/18 05:22 Alkaline Phosphatase 51 units/L (35-129) 09/18/18 05:22 Troponin T 0.012 ng/mL (0.00-0.029) 09/17/18 15:17 NT-Pro-B Natriuret Pep 992.5 pg/mL (0-450) H 09/17/18 15:17 Serum Total Protein 3.4 g/dL (6.1-8.1) L 09/19/18 05:45 Total Protein 3.9 g/dL (6.3-8.2) L 09/18/18 05:22 Albumin 1.2 g/dL (3.8-4.8) L 09/19/18 05:45 Albumin/Globulin Ratio 0.6 % 09/18/18 05:22 Mcddl-8-Mqejmtxhp 0.3 g/dL (0.2-0.3) 09/19/18 05:45 Xrlrz-1-Hgtenqzqe 0.8 g/dL (0.5-0.9) 09/19/18 05:45 Beta Globulins 0.4 g/dL (0.2-0.5) 09/19/18 05:45 Gamma Globulins 0.5 g/dL (0.8-1.7) L 09/19/18 05:45 Abnorm Protein Band 1 see below 09/19/18 05:45 PEP Interpretation see below H 09/19/18 05:45 PTH Intact 46.07 pg/mL (15-65) 09/19/18 05:45 Urine Color Yellow (Yellow) 09/17/18 17:18 Urine Turbidity Cloudy (Clear) 09/17/18 17:18 Urine pH 5.0 (5.0-7.0) 09/17/18 17:18 Ur Specific [place] 1.029 (1.003-1.030) 09/17/18 17:18 Urine Protein >500 mg/dL (Negative) 09/17/18 17:18 Urine Glucose (UA) Neg mg/dL (Negative) 09/17/18 17:18 Urine Ketones Tr mg/dL (Negative) 09/17/18 17:18 Urine Blood Sm (Negative) 09/17/18 17:18 Urine Nitrite Neg (Negative) 09/17/18 17:18 Urine Bilirubin Neg (Negative) 09/17/18 17:18 Urine Urobilinogen < 2.0 mg/dL (<2.0) 09/17/18 17:18 Ur Leukocyte Esterase Neg (Negative) 09/17/18 17:18 Urine WBC (Auto) 15.0 /HPF (0.0-6.0) H 09/17/18 17:18 Urine RBC (Auto) 13.0 /HPF (0.0-6.0) 09/17/18 17:18 U Epithel Cells (Auto) 6.0 /HPF (0-13.0) 09/17/18 17:18 Urine Bacteria (Auto) 2+ /HPF (Negative) 09/17/18 17:18 Urine WBC Clumps 2+ /HPF 09/17/18 17:18 Hyaline Casts 6 /LPF 09/17/18 17:18 Urine Mucus Few /HPF 09/17/18 17:18 Urine Yeast (Budding) 2+ /HPF 09/17/18 17:18 Urine Eosinophils None seen (None Seen) 09/18/18 10:30 Urine Total Volume 475 ml 09/18/18 10:30 Urine Creatinine 97.5 mg/dL (0.1-20.0) H 09/21/18 07:00 Ur Creatinine 24 Hour 0.7 (0.8-2.8) L 09/18/18 10:30 Ur Total Protein 24 Hr 1073.50 mg/dL (2-200) H 09/18/18 10:30 Protein/Creatinin Ratio 7.26 09/21/18 07:00 Urine Sodium 53 mmol/L 09/21/18 07:00 Urine Urea Nitrogen 467 09/18/18 10:30 Ur Urea Nitrogen 24 Hr 2.22 09/18/18 10:30 Urine Total Protein 708 mg/dL (5-11.8) H 09/21/18 07:00 Urine Opiates Screen Presumptive negative 09/17/18 17:18 Urine Methadone Screen Presumptive negative 09/17/18 17:18 Ur Barbiturates Screen Presumptive negative 09/17/18 17:18 Ur Phencyclidine Scrn Presumptive negative 09/17/18 17:18 Ur Amphetamines Screen Presumptive negative 09/17/18 17:18 U Benzodiazepines Scrn Presumptive negative 09/17/18 17:18 Urine Cocaine Screen Presumptive negative 09/17/18 17:18 U Marijuana (THC) Screen Presumptive negative 09/17/18 17:18 Drugs of Abuse Note Disclamer 09/17/18 17:18 Complement C3 143 mg/dL (83-193) 09/19/18 05:45 Complement C4 56 mg/dL (15-57) 09/19/18 05:45 Hepatitis A IgM Ab Non-reactive (NonReactive) 09/19/18 05:45 Hep Bs Antigen Non-reactive (Negative) 09/19/18 05:45 Hep B Core IgM Ab Non-reactive (NonReactive) 09/19/18 05:45 Hepatitis C Antibody Non-reactive (NonReactive) 09/19/18 05:45
[2018-09-24] MEDS: SODIUM CHLORIDE FLUSH SYRINGE 10 ML IV SCH ×2 (10:34→23:31)
--- NOTE | 2018-09-24 11:04 | Gastroenterology Progress Note ---
Assessment and Plan 1.coffee-ground emesis -H/H 7.8/24.1 on 09/21 (anemia noted on admission; unknown baseline) -continue to monitor H/H and transfuse as needed (will order repeat H/H this am, however patient has been refusing labs) -no active signs of bleeding overnight or this am per nursing -etiology unclear -no plans for scope at this time unless overt bleeding develops -start on PPI -continue supportive care -will follow 2.acute kidney injury/hyperkalemia 3.nephrotic syndrome 4.volume overload 5.HTN 6.anemia 7.Schizophrenia/bipolar- psych consult pending 8.sepsis-pneumonia/UTI 9.medical noncompliance Subjective Date of service: 09/24/18 Principal diagnosis: coffee-ground emesis Interval history: Patient noted to be somnolent this am and unable to communicate effectively. No active signs of bleeding overnight or this am per nursing. Objective - Constitutional Vitals: Temp Pulse Resp BP Pulse Ox 98.0 F 109 H 18 126/73 97 09/24/18 05:52 09/24/18 05:52 09/24/18 05:52 09/24/18 05:52 09/24/18 05:52 General appearance: obese, other (somnolent) - Respiratory Respiratory: bilateral: diminished - Cardiovascular Rhythm: other (tachycardia) - Extremities Extremity abnormal: other (anasarca) - Gastrointestinal General gastrointestinal: Present: soft, non-tender, distended (slightly), normal bowel sounds, other (obese) - Labs CBC & Chem 7: 09/21/18 06:13 09/23/18 04:40 Labs: Laboratory Results - last 24 hr 09/19/18 09/23/18 05:45 15:06 POC ABG pH 7.375 POC ABG pCO2 36.3 POC ABG pO2 99 POC ABG HCO3 21.2 POC ABG Total CO2 22 POC ABG O2 Sat 98 POC ABG Base Excess -4 FiO2 2 Serum Total Protein 3.4 L Albumin 1.2 L Tcnue-3-Jqfqftsgc 0.3 Zngdu-1-Bgxohrknx 0.8 Beta Globulins 0.4 Gamma Globulins 0.5 L Abnorm Protein Band 1 see below PEP Interpretation see below H
[2018-09-24] MEDS ORDERED: NACL 0.9% 100 ML IV PRN (11:16)
--- NOTE | 2018-09-24 11:52 | Consultation ---
History of Present Illness Consult date: 09/24/18 Requesting physician: LADONNA MAKI Reason for consult: other (Acute Hypoxemic Respiratory Failure) History of present illness: PULMONARY/CCM CONSULT NOTE (Full dictation # ) Please see dictated notes for full details Past History Past Medical History: hypertension, other (Scizophrenia) Medications and Allergies Allergies Allergy/AdvReac Type Severity Reaction Status Date / Time No Known Allergies Allergy Unverified 09/17/18 15:05 Home Medications Medication Instructions Recorded Confirmed Last Taken Type Divalproex Sodium [Depakote] 500 mg PO BID 09/17/18 09/17/18 Unknown History Haldol (Nf) 09/17/18 Unknown History Invega Sustenna 09/17/18 Unknown History diphenhydrAMINE [Benadryl CAP] 50 mg PO HS 09/17/18 09/17/18 Unknown History Active Meds: Active Medications Acetaminophen (Tylenol) 650 mg PO Q4H PRN PRN Reason: Pain MILD(1-3)/Fever >100.5/MENDOZA Last Admin: 09/23/18 16:28 Dose: 650 mg Documented by: Atorvastatin Calcium (Lipitor) 40 mg PO QHS [facility] Last Admin: 09/23/18 22:17 Dose: 40 mg Documented by: Diphenhydramine HCl (Benadryl) 50 mg PO [facility] Last Admin: 09/23/18 22:17 Dose: 50 mg Documented by: Divalproex Sodium (Depakote Dr) 500 mg PO BID [facility] Last Admin: 09/24/18 09:46 Dose: 500 mg Documented by: Enoxaparin Sodium (Lovenox) 30 mg SUB-Q QDAY@2200 [facility] Last Admin: 09/23/18 22:18 Dose: Not Given Documented by: Hydralazine HCl (Apresoline) 10 mg IV Q4H PRN PRN Reason: systolic b/p >165 Last Admin: 09/22/18 12:12 Dose: 10 mg Documented by: Hydralazine HCl (Apresoline) 50 mg PO Q8HR [facility] Last Admin: 09/24/18 07:02 Dose: Not Given Documented by: Hydromorphone HCl (Dilaudid) 0.5 mg IV Q3H PRN PRN Reason: Pain , Severe (7-10) Azithromycin 500 mg/ Sodium (Chloride) 250 mls @ 250 mls/hr IV Q24HR [facility] Last Admin: 09/24/18 09:45 Dose: 250 mls/hr Documented by: Furosemide 100 mg/ Sodium (Chloride) 100 mls @ 10 mls/hr IV DIRECT [facility] Ceftriaxone Sodium (Rocephin/Ns 1 Gm/50 Ml) 1 gm in 50 mls @ 100 mls/hr IV Q24HR [facility]; Protocol Last Admin: 09/24/18 09:45 Dose: 100 mls/hr Documented by: Sodium Chloride (Nacl 0.9%) 100 mls @ 999 mls/hr IV KUSHAL PRN PRN Reason: Hypotension Ondansetron HCl (Zofran) 4 mg IV Q8H PRN PRN Reason: Nausea And Vomiting Last Admin: 09/23/18 08:45 Dose: 4 mg Documented by: Oxycodone/Acetaminophen (Percocet 5/325) 1 tab PO Q6H PRN PRN Reason: Pain, Moderate (4-6) Last Admin: 09/21/18 22:11 Dose: 1 tab Documented by: Pantoprazole Sodium (Protonix) 40 mg IV BID [facility] Sodium Chloride (Sodium Chloride Flush Syringe 10 Ml) 10 ml IV BID [facility] Last Admin: 09/24/18 10:34 Dose: 10 ml Documented by: Sodium Chloride (Sodium Chloride Flush Syringe 10 Ml) 10 ml IV PRN PRN PRN Reason: LINE FLUSH Physical Examination Vital signs: Vital Signs Temp Pulse Resp BP Pulse Ox 98.5 F 100 H 20 164/99 99 09/17/18 15:02 09/17/18 15:02 09/17/18 15:02 09/17/18 15:02 09/17/18 15:02 Results - Laboratory Findings CBC and BMP: 09/21/18 06:13 09/23/18 04:40 ABG POC ABG pH 7.375 (7.35-7.45) 09/23/18 15:06 POC ABG pCO2 36.3 (35-45) 09/23/18 15:06 POC ABG pO2 99 (80-105) 09/23/18 15:06 POC ABG HCO3 21.2 09/23/18 15:06 POC ABG Total CO2 22 09/23/18 15:06 POC ABG O2 Sat 98 09/23/18 15:06 PT/INR, D-dimer PT 13.0 Sec. (12.2-14.9) 09/17/18 15:17 INR 0.93 (0.87-1.13) 09/17/18 15:17 Abnormal lab findings: Abnormal Labs 09/17/18 09/17/18 09/17/18 15:17 15:17 15:17 WBC RBC 3.34 L Hgb 9.1 L Hct 27.9 L MCH 27 L RDW 20.5 H Lymph % (Auto) [place] % (Auto) 8.8 H APTT 22.2 L Potassium Chloride 107.7 H BUN 37 H Creatinine 2.3 H Calcium 7.4 L Magnesium 2.60 H ALT NT-Pro-B Natriuret Pep 992.5 H Serum Total Protein Total Protein 4.1 L Albumin 1.3 L Gamma Globulins PEP Interpretation Urine WBC (Auto) Urine Creatinine Ur Creatinine 24 Hour Ur Total Protein 24 Hr Urine Total Protein 09/17/18 09/18/18 09/18/18 17:18 05:22 05:22 WBC 4.4 L RBC 3.06 L Hgb 8.5 L Hct 25.5 L MCH RDW 20.0 H Lymph % (Auto) 36.5 H [place] % (Auto) 12.3 H APTT Potassium Chloride 107.2 H BUN 37 H Creatinine 2.2 H Calcium 7.4 L Magnesium ALT 6 L NT-Pro-B Natriuret Pep Serum Total Protein Total Protein 3.9 L Albumin 1.4 L Gamma Globulins PEP Interpretation Urine WBC (Auto) 15.0 H Urine Creatinine Ur Creatinine 24 Hour Ur Total Protein 24 Hr Urine Total Protein 09/18/18 09/19/18 09/19/18 10:30 05:45 05:45 WBC RBC Hgb Hct MCH RDW Lymph % (Auto) [place] % (Auto) APTT Potassium Chloride BUN 37 H Creatinine 2.1 H Calcium 7.3 L Magnesium ALT NT-Pro-B Natriuret Pep Serum Total Protein 3.4 L Total Protein Albumin 1.2 L Gamma Globulins 0.5 L PEP Interpretation see below H Urine WBC (Auto) Urine Creatinine 147.5 H Ur Creatinine 24 Hour 0.7 L Ur Total Protein 24 Hr 1073.50 H Urine Total Protein 226 H 09/20/18 09/20/18 09/21/18 04:56 15:15 06:13 WBC RBC 2.84 L Hgb 7.8 L Hct 24.1 L MCH 27 L RDW 19.8 H Lymph % (Auto) [place] % (Auto) 12.9 H APTT Potassium 5.4 H 5.5 H Chloride 108.2 H BUN 38 H Creatinine 2.4 H Calcium 7.2 L Magnesium ALT NT-Pro-B Natriuret Pep Serum Total Protein Total Protein Albumin Gamma Globulins PEP Interpretation Urine WBC (Auto) Urine Creatinine Ur Creatinine 24 Hour Ur Total Protein 24 Hr Urine Total Protein 09/21/18 09/21/18 09/22/18 06:13 07:00 10:12 WBC RBC Hgb Hct MCH RDW Lymph % (Auto) [place] % (Auto) APTT Potassium 5.2 H Chloride 108.2 H 111.5 H BUN 39 H 40 H Creatinine 2.7 H 3.1 H Calcium 7.3 L 7.1 L Magnesium ALT NT-Pro-B Natriuret Pep Serum Total Protein Total Protein Albumin Gamma Globulins PEP Interpretation Urine WBC (Auto) Urine Creatinine 97.5 H Ur Creatinine 24 Hour Ur Total Protein 24 Hr Urine Total Protein 708 H 09/23/18 04:40 WBC RBC Hgb Hct MCH RDW Lymph % (Auto) [place] % (Auto) APTT Potassium Chloride 109.1 H BUN 42 H Creatinine 3.8 H Calcium 7.2 L Magnesium ALT NT-Pro-B Natriuret Pep Serum Total Protein Total Protein Albumin Gamma Globulins PEP Interpretation Urine WBC (Auto) Urine Creatinine Ur Creatinine 24 Hour Ur Total Protein 24 Hr Urine Total Protein
[2018-09-24] MEDS ORDERED: SUBLIMAZE ONE (12:48)
[2018-09-24] MEDS ORDERED: VERSED ONE (12:48)
[2018-09-24] MEDS ORDERED: NACL 0.9% 250ML 0 ML ONE (12:49)
[2018-09-24] MEDS ORDERED: HEPARIN/NS 5000 UNIT/500ML(CATH LAB) 500 ML IR ONE (12:49)
[2018-09-24] MEDS: XYLOCAINE 1%/ EPI 1:100,000 INFILTRATI ONE ×2 (13:16→13:24)
[2018-09-24] MEDS: HEPARIN 10,000 UNITS/10 ML ONE ×2 (13:31→13:32)
--- NOTE | 2018-09-24 13:46 | Operative Report ---
Operative Report Operative Report: Exam: Ultrasound and fluoroscopic guided placement of permacath Clinical indication: Acute renal failure requiring urgent dialysis access Date: 09/24/2018 Procedure: Following an excellent action of the risks, benefits and alternatives; written informed consent was obtained. The patient was brought to the antigravity suite and placed in supine position on the examination table. Initial ultrasound evaluation of the neck demonstrated a patent right internal trigger vein. The patient's right neck and chest wall were prepped and draped in the usual sterile fashion. On percent lidocaine was used for anesthesia. Under ultrasound guidance, the right internal jugular vein was cannulated with a 7 cm 21-gauge needle. A 0.0 when he guidewire was advanced into the IVC under fluoroscopy to document intravenous positioning. The needle was removed and a marker sheath place. 0.018 guidewire was exchanged for a 0.035 guidewire. This are 0.035 guidewire was advanced into the iliac veins using a vertebral catheter. Appropriate catheter exit site was chosen along the lateral right chest wall. 1% lidocaine was used for anesthesia at the catheter exit site longitudinal tract. A 19 cm tunneled hemodialysis catheter was then tunneled antegrade from the catheter exit site to the venotomy site. Given the patient's body habitus, the 0.035J guidewire was exchanged for an Amplatz who presents to guidewire. Following serial dilation over the guidewire under fluoroscopy, a 15 [place] peel-away sheath was placed over the guidewire under fluoroscopy. The guidewire and trocar were removed. The catheter was placed to the peel-away sheath to position the tip of the catheter at the cavoatrial junction. Both ports flushed and aspirated easily and within lock with appropriate volumes of heparin. The venotomy was closed using 4-0 Vicryl sutures and Dermabond. 3-0 Vicryl suture was also applied to the catheter exit site to approximate the incision. The patient tolerated the procedure well. There were no immediate post procedure complications. The patient was given a minimal amount of fentanyl for pain relief. Conscious sedation was not utilized secondary to patient's obtunded status. Impression: Ultrasound and fluoroscopic guided placement of a 19 cm PermCath. Given the patient's body habitus, she may require conversion to a 23 cm.
--- NOTE | 2018-09-24 13:48 | Consultation ---
History of Present Illness - Reason for Consult Consult date: 09/24/18 Reason for consult: Decisional Capacity Evaluation Requesting physician: LADONNA CRISTINA - Chief Complaint Chief complaint: 37 y. o AA female who presented to the ER for generalized body swelling and SOB. Psychiatry was consulted to see the patient for a decisional capacity evaluation. Today the patient was calm upon my arrival to her room. I the provider introduced myself to the patient and explained why I was there. 'The patient stated that she didn't want to talk. I asked her when can I return, she stated, "I will let you know." Once she made that statement, the patient covered her head with the sheets. At this time, the decisional capacity eval uation could not be completed. I discussed the case with the patient's hospitalist Dr Cristina. I will follow up with the patient in 24 hours. Medications and Allergies Allergies Allergy/AdvReac Type Severity Reaction Status Date / Time No Known Allergies Allergy Unverified 09/17/18 15:05 Home Medications Medication Instructions Recorded Confirmed Last Taken Type Divalproex Sodium [Depakote] 500 mg PO BID 09/17/18 09/17/18 Unknown History Haldol (Nf) 09/17/18 Unknown History Invega Sustenna 09/17/18 Unknown History diphenhydrAMINE [Benadryl CAP] 50 mg PO HS 09/17/18 09/17/18 Unknown History Active Meds: Active Medications Acetaminophen (Tylenol) 650 mg PO Q4H PRN PRN Reason: Pain MILD(1-3)/Fever >100.5/MENDOZA Last Admin: 09/23/18 16:28 Dose: 650 mg Documented by: Atorvastatin Calcium (Lipitor) 40 mg PO QHS [facility] Last Admin: 09/23/18 22:17 Dose: 40 mg Documented by: Diphenhydramine HCl (Benadryl) 50 mg PO [facility] Last Admin: 09/23/18 22:17 Dose: 50 mg Documented by: Divalproex Sodium (Depakote Dr) 500 mg PO BID [facility] Last Admin: 09/24/18 09:46 Dose: 500 mg Documented by: Enoxaparin Sodium (Lovenox) 30 mg SUB-Q QDAY@2200 [facility] Last Admin: 09/23/18 22:18 Dose: Not Given Documented by: Hydralazine HCl (Apresoline) 10 mg IV Q4H PRN PRN Reason: systolic b/p >165 Last Admin: 09/22/18 12:12 Dose: 10 mg Documented by: Hydralazine HCl (Apresoline) 50 mg PO Q8HR [facility] Last Admin: 09/24/18 07:02 Dose: Not Given Documented by: Hydromorphone HCl (Dilaudid) 0.5 mg IV Q3H PRN PRN Reason: Pain , Severe (7-10) Azithromycin 500 mg/ Sodium (Chloride) 250 mls @ 250 mls/hr IV Q24HR [facility] Last Admin: 09/24/18 09:45 Dose: 250 mls/hr Documented by: Furosemide 100 mg/ Sodium (Chloride) 100 mls @ 10 mls/hr IV DIRECT [facility] Ceftriaxone Sodium (Rocephin/Ns 1 Gm/50 Ml) 1 gm in 50 mls @ 100 mls/hr IV Q24HR [facility]; Protocol Last Admin: 09/24/18 09:45 Dose: 100 mls/hr Documented by: Sodium Chloride (Nacl 0.9%) 100 mls @ 999 mls/hr IV KUSHAL PRN PRN Reason: Hypotension Ondansetron HCl (Zofran) 4 mg IV Q8H PRN PRN Reason: Nausea And Vomiting Last Admin: 09/23/18 08:45 Dose: 4 mg Documented by: Oxycodone/Acetaminophen (Percocet 5/325) 1 tab PO Q6H PRN PRN Reason: Pain, Moderate (4-6) Last Admin: 09/21/18 22:11 Dose: 1 tab Documented by: Pantoprazole Sodium (Protonix) 40 mg IV BID [facility] Sodium Chloride (Sodium Chloride Flush Syringe 10 Ml) 10 ml IV BID [facility] Last Admin: 09/24/18 10:34 Dose: 10 ml Documented by: Sodium Chloride (Sodium Chloride Flush Syringe 10 Ml) 10 ml IV PRN PRN PRN Reason: LINE FLUSH Mental Status Exam - Vital signs Last Vital Signs Temp 98.0 F 09/24/18 11:30 Pulse 113 H 09/24/18 11:30 Resp 23 09/24/18 11:30 BP 157/91 09/24/18 11:30 Pulse Ox 100 09/24/18 11:30 Results Result Diagrams: 09/21/18 06:13 09/23/18 04:40 Abnormal lab results 09/19/18 Range/Units 05:45 Serum Total Protein 3.4 L (6.1-8.1) g/dL Albumin 1.2 L (3.8-4.8) g/dL Gamma Globulins 0.5 L (0.8-1.7) g/dL PEP Interpretation see below H All other labs normal.
--- NOTE | 2018-09-24 14:46 | Consultation ---
REFERRING PHYSICIAN: Lincoln Cristina MD INDICATION: 1. Coffee emesis. 2. Anemia. HISTORY OF PRESENT ILLNESS: The patient is a 47-year-old black female with history of obesity, hypertension and schizophrenia. The patient was admitted on . The patient had 2 weeks of bilateral lower extremity swelling with increased abdominal girth. The patient was noted to be in acute renal failure and is being considered for possible dialysis. The patient was admitted for probable nephrotic syndrome. The patient is not the best historian. The patient reports some nausea without vomiting. The patient was noted last night to have some nausea and reported coffee-ground emesis and slightly decreased H and H. For that, GI is consulted. No other specific complaints. PAST MEDICAL HISTORY: 1. Hypertension. 2. Schizophrenia. MEDICATIONS: Reviewed and updated in chart. ALLERGIES: No drug allergies. SOCIAL HISTORY: Denies alcohol, tobacco or drug abuse. REVIEW OF SYSTEMS: GENERAL: Reports mild weakness. HEENT: No visual complaints or tinnitus. PULMONARY: No shortness of breath. CARDIOVASCULAR: No chest pain. GASTROINTESTINAL: Reports coffee ground emesis. All points of 13-point review of systems otherwise negative. PHYSICAL EXAMINATION: VITAL SIGNS: Temperature of 98.4, pulse 120, respirations 18 and blood pressure 120/77. GENERAL: Fairly nourished female, obese, in no acute distress. HEENT: Pupils are equal, round, reactive. PULMONARY: Rhonchi. CARDIOVASCULAR: Normal S1 and S2. ABDOMEN: Positive bowel sounds, soft. SKIN: No obvious rashes. LABORATORY DATA: Pertinent for white count of 5.2, hemoglobin and hematocrit of 7.8 and 24.1, and platelet count of 205. Chem-7, sodium of 140, potassium 4.8, chloride 109, CO2 of 22, BUN and creatinine of 42 and 3.8. ASSESSMENT AND PLAN: A 47-year-old black female with past medical history noted above, presented with lower extremity swelling with signs of acute renal failure, now with coffee emesis. The patient with no melena or bright red blood per rectum. Hemoglobin is slightly decreased recently. The patient has been reportedly considered for possible dialysis. Management is noted below. PLAN: 1. PPI IV b.i.d. 2. We will follow hematocrit and transfuse as needed. 3. We will follow up on renal notes, especially after whether or not the patient will get dialyzed. 4. Avoid NSAIDs and aspirin as possible. 5. We will consider EGD based on progress, but given other medical issues and no active bleeding, we will defer at this time. 6. We will follow. JOB# [id number] CAB/NTS
[2018-09-24 15:00] LABS: ANA Screen, IFA Negative (Negative)
[2018-09-24] MEDS ORDERED: NACL 0.9 (PRIMING MACHINE ONLY DIALYSIS) MC ONE (17:38)
--- NOTE | 2018-09-24 19:04 | Consultation ---
History of Present Illness Consult date: 09/24/18 Reason for consult: dyspnea History of present illness: PULMONARY AND CRITICAL CARE CONSULTATION DR. MAKI THANK YOU FOR ASKING US TO PARTICIPATE IN THE CARE OF THIS PATIENT. Patient is 47 years old, morbidly obese female with history of schizophrenia and hypertension. Patient presented to the ER complaining of generalized body swelling and stiffness with some shortness of breath. Patient stated that she was seen in multiple ER recently for the same problem. She denied any chest pain, abdominal pain, nausea or vomiting. Patient denied any auditory or visual hallucination. No suicidal iDEATION. Patient is not very cooperative. Patient denies hypertension, diabetes, asthma, copd or heart problems or GE reflux. Patient is poor historian.Says 2 cigaretts a day for 11 years. Denies alcohol or drug abuse. No known drug allergies. Patient says no history of sleep apnea. Patient presently resting on room air. O2 saturation 99%.Patient anemic. HGB 7.8. Chest xray showing air space disease on left side. Past History Past Medical History: other (Scizophrenia) Medications and Allergies Allergies Allergy/AdvReac Type Severity Reaction Status Date / Time No Known Allergies Allergy Unverified 09/17/18 15:05 Home Medications Medication Instructions Recorded Confirmed Last Taken Type Divalproex Sodium [Depakote] 500 mg PO BID 09/17/18 09/17/18 Unknown History Haldol (Nf) 09/17/18 Unknown History Invega Sustenna 09/17/18 Unknown History diphenhydrAMINE [Benadryl CAP] 50 mg PO HS 09/17/18 09/17/18 Unknown History Active Meds: Active Medications Acetaminophen (Tylenol) 650 mg PO Q4H PRN PRN Reason: Pain MILD(1-3)/Fever >100.5/MENDOZA Last Admin: 09/23/18 16:28 Dose: 650 mg Documented by: Atorvastatin Calcium (Lipitor) 40 mg PO QHS [facility] Last Admin: 09/23/18 22:17 Dose: 40 mg Documented by: Azithromycin (Zithromax) 500 mg PO QDAY [facility] Diphenhydramine HCl (Benadryl) 50 mg PO HS [facility] Last Admin: 09/23/18 22:17 Dose: 50 mg Documented by: Divalproex Sodium (Depakote Dr) 500 mg PO BID [facility] Last Admin: 09/24/18 09:46 Dose: 500 mg Documented by: Enoxaparin Sodium (Lovenox) 30 mg SUB-Q QDAY@2200 LUZ Last Admin: 09/23/18 22:18 Dose: Not Given Documented by: Hydralazine HCl (Apresoline) 10 mg IV Q4H PRN PRN Reason: systolic b/p >165 Last Admin: 09/22/18 12:12 Dose: 10 mg Documented by: Hydralazine HCl (Apresoline) 50 mg PO Q8HR [facility] Last Admin: 09/24/18 14:00 Dose: Not Given Documented by: Hydromorphone HCl (Dilaudid) 0.5 mg IV Q3H PRN PRN Reason: Pain , Severe (7-10) Furosemide 100 mg/ Sodium (Chloride) 100 mls @ 10 mls/hr IV DIRECT LUZ Ceftriaxone Sodium (Rocephin/Ns 1 Gm/50 Ml) 1 gm in 50 mls @ 100 mls/hr IV Q24HR [facility]; Protocol Last Admin: 09/24/18 09:45 Dose: 100 mls/hr Documented by: Sodium Chloride (Nacl 0.9%) 100 mls @ 999 mls/hr IV KUSHAL PRN PRN Reason: Hypotension Ondansetron HCl (Zofran) 4 mg IV Q8H PRN PRN Reason: Nausea And Vomiting Last Admin: 09/23/18 08:45 Dose: 4 mg Documented by: Oxycodone/Acetaminophen (Percocet 5/325) 1 tab PO Q6H PRN PRN Reason: Pain, Moderate (4-6) Last Admin: 09/21/18 22:11 Dose: 1 tab Documented by: Pantoprazole Sodium (Protonix) 40 mg IV BID [facility] Sodium Chloride (Sodium Chloride Flush Syringe 10 Ml) 10 ml IV BID [facility] Last Admin: 09/24/18 10:34 Dose: 10 ml Documented by: Sodium Chloride (Sodium Chloride Flush Syringe 10 Ml) 10 ml IV PRN PRN PRN Reason: LINE FLUSH Review of Systems All systems: negative Physical Examination Vital signs: Vital Signs Temp Pulse Resp BP Pulse Ox 98.5 F 100 H 20 164/99 99 09/17/18 15:02 09/17/18 15:02 09/17/18 15:02 09/17/18 15:02 09/17/18 15:02 General appearance: no acute distress, alert Eyes: non-icteric ENT: oropharynx moist Neck: supple, no JVD Ascultation: Bilateral: diminished breath sounds Cardiovascular: regular rate and rhythm Gastrointestinal: normoactive bowel sounds, soft, non-tender Integumentary: normal Extremities: no cyanosis, no edema Musculoskeletal: no deformities Gait: poor gait non-focal exam, pupils equal and round, CN II-XII normal depressed Results - Laboratory Findings CBC and BMP: 09/21/18 06:13 09/23/18 04:40 ABG POC ABG pH 7.375 (7.35-7.45) 09/23/18 15:06 POC ABG pCO2 36.3 (35-45) 09/23/18 15:06 POC ABG pO2 99 (80-105) 09/23/18 15:06 POC ABG HCO3 21.2 09/23/18 15:06 POC ABG Total CO2 22 09/23/18 15:06 POC ABG O2 Sat 98 09/23/18 15:06 PT/INR, D-dimer PT 13.0 Sec. (12.2-14.9) 09/17/18 15:17 INR 0.93 (0.87-1.13) 09/17/18 15:17 Abnormal lab findings: Abnormal Labs 09/17/18 09/17/18 09/17/18 15:17 15:17 15:17 WBC RBC 3.34 L Hgb 9.1 L Hct 27.9 L MCH 27 L RDW 20.5 H Lymph % (Auto) Bryan % (Auto) 8.8 H APTT 22.2 L Potassium Chloride 107.7 H BUN 37 H Creatinine 2.3 H Calcium 7.4 L Magnesium 2.60 H ALT NT-Pro-B Natriuret Pep 992.5 H Serum Total Protein Total Protein 4.1 L Albumin 1.3 L Gamma Globulins PEP Interpretation Urine WBC (Auto) Urine Creatinine Ur Creatinine 24 Hour Ur Total Protein 24 Hr Urine Total Protein 09/17/18 09/18/18 09/18/18 17:18 05:22 05:22 WBC 4.4 L RBC 3.06 L Hgb 8.5 L Hct 25.5 L MCH RDW 20.0 H Lymph % (Auto) 36.5 H Bryan % (Auto) 12.3 H APTT Potassium Chloride 107.2 H BUN 37 H Creatinine 2.2 H Calcium 7.4 L Magnesium ALT 6 L NT-Pro-B Natriuret Pep Serum Total Protein Total Protein 3.9 L Albumin 1.4 L Gamma Globulins PEP Interpretation Urine WBC (Auto) 15.0 H Urine Creatinine Ur Creatinine 24 Hour Ur Total Protein 24 Hr Urine Total Protein 09/18/18 09/19/18 09/19/18 10:30 05:45 05:45 WBC RBC Hgb Hct MCH RDW Lymph % (Auto) Bryan % (Auto) APTT Potassium Chloride BUN 37 H Creatinine 2.1 H Calcium 7.3 L Magnesium ALT NT-Pro-B Natriuret Pep Serum Total Protein 3.4 L Total Protein Albumin 1.2 L Gamma Globulins 0.5 L PEP Interpretation see below H Urine WBC (Auto) Urine Creatinine 147.5 H Ur Creatinine 24 Hour 0.7 L Ur Total Protein 24 Hr 1073.50 H Urine Total Protein 226 H 09/20/18 09/20/18 09/21/18 04:56 15:15 06:13 WBC RBC 2.84 L Hgb 7.8 L Hct 24.1 L MCH 27 L RDW 19.8 H Lymph % (Auto) Bryan % (Auto) 12.9 H APTT Potassium 5.4 H 5.5 H Chloride 108.2 H BUN 38 H Creatinine 2.4 H Calcium 7.2 L Magnesium ALT NT-Pro-B Natriuret Pep Serum Total Protein Total Protein Albumin Gamma Globulins PEP Interpretation Urine WBC (Auto) Urine Creatinine Ur Creatinine 24 Hour Ur Total Protein 24 Hr Urine Total Protein 09/21/18 09/21/18 09/22/18 06:13 07:00 10:12 WBC RBC Hgb Hct MCH RDW Lymph % (Auto) Bryan % (Auto) APTT Potassium 5.2 H Chloride 108.2 H 111.5 H BUN 39 H 40 H Creatinine 2.7 H 3.1 H Calcium 7.3 L 7.1 L Magnesium ALT NT-Pro-B Natriuret Pep Serum Total Protein Total Protein Albumin Gamma Globulins PEP Interpretation Urine WBC (Auto) Urine Creatinine 97.5 H Ur Creatinine 24 Hour Ur Total Protein 24 Hr Urine Total Protein 708 H 09/23/18 04:40 WBC RBC Hgb Hct MCH RDW Lymph % (Auto) Bryan % (Auto) APTT Potassium Chloride 109.1 H BUN 42 H Creatinine 3.8 H Calcium 7.2 L Magnesium ALT NT-Pro-B Natriuret Pep Serum Total Protein Total Protein Albumin Gamma Globulins PEP Interpretation Urine WBC (Auto) Urine Creatinine Ur Creatinine 24 Hour Ur Total Protein 24 Hr Urine Total Protein - Diagnostic Findings Chest x-ray: report reviewed (Air space disease left heart border.), image reviewed Assessment and Plan Patient is 47 years old, morbidly obese female with history of schizophrenia and hypertension. Patient presented to the ER complaining of generalized body sw elling and stiffness with some shortness of breath. Patient stated that she was seen in multiple ER recently for the same problem. She denied any chest pain, abdominal pain, nausea or vomiting. Patient denied any auditory or visual hallucination. No suicidal iDEATION. Patient is not very cooperative. Patient denies hypertension, diabetes, asthma, copd or heart problems or GE reflux. Patient is poor historian.Says 2 cigaretts a day for 11 years. Denies alcohol or drug abuse. No known drug allergies. Patient says no history of sleep apnea. Patient presently resting on room air. O2 saturation 99%.Patient anemic. HGB 7.8. Chest xray showing air space disease on left side. Patient morbidley obese. Recommend sleep study as out patient. - Patient Problems (1) Pneumonia involving left lung Current Visit: Yes Status: Acute Plan to address problem: Patient mingo Azithromycin and Ceftrioxone. (2) Acute exacerbation of congestive heart failure Current Visit: Yes Status: Acute Plan to address problem: Management as per cardiology. (3) Nephrotic syndrome Current Visit: Yes Status: Acute Plan to address problem: Management as per nephrology.
[2018-09-24] MEDS: LOVENOX SUB-Q SCH (22:27)
[2018-09-24] MEDS: BENADRYL PO SCH (22:28)
[2018-09-24] MEDS: PROTONIX IV SCH (22:28)
[2018-09-25] MEDS: APRESOLINE PO SCH ×3 (07:44→22:30)
[2018-09-25 07:54] LABS: Basophils % (Auto) 0.2 % (0.0-1.8); Eosinophils % (Auto) 0.5 % (0.0-4.3); Hematocrit 21.5 % (30.3-42.9); Hemoglobin 6.9 gm/dl (10.1-14.3); Lymphocytes # (Auto) 1.2 K/mm3 (1.2-5.4); Lymphocytes % (Auto) 19.4 % (13.4-35.0); Mean Corpuscular HGB Conc 32 % (30-34); Mean Corpuscular Volume 84 fl (79-97); Monocytes # (Auto) 0.8 K/mm3 (0.0-0.8); Monocytes % (Auto) 12.2 % (0.0-7.3); Platelet Count 178 K/mm3 (140-440); Red Blood Count 2.55 M/mm3 (3.65-5.03); Red Cell Distribution Width 19.5 % (13.2-15.2)
[2018-09-25 08:16] LABS: Calcium 7.3 mg/dL (8.4-10.2)
[2018-09-25] MEDS: ZITHROMAX PO SCH (09:36)
--- NOTE | 2018-09-25 09:46 | Progress Note ---
Assessment and Plan 1. Acute kidney injury: Renal US was negative. Likely related Nephrotic syndrome. Renal function continue to decline. Patient was started on hemodialysis yesterday due to worsening renal function, anasarca and suspected pulmonary edema. Tolerated hemodialysis well. HD today. Bladder scan pending. 2. Nephrotic syndrome: Etiology includes FSGS, Minimal change, Membranous and Lupus nephritis. Complements, BI, SPEP and Hepatitis panel are negative. ANCA pending. She also need HIV to complete the workup. Kidney biospy tomorrow. Patient is on Lovenox to prevent DVT. Continue Statin. 3. Volume overload: UF with HD On Lasix. 4. Hyperkalemia: Improved. 5. HTN. 6. Anemia: Present on admission. 7. Medical non-compliance. Subjective Date of service: 09/25/18 Principal diagnosis: coffee-ground emesis Interval history: Patient was seen and examined at the bedside. Doing ok. Objective - Vital Signs Vital signs: Vital Signs - 12hr 09/24/18 09/25/18 09/25/18 22:44 00:04 06:03 Temperature 99.0 F Pulse Rate 105 H 105 H Respiratory 20 18 Rate Blood Pressure 130/63 131/74 Blood Pressure 116/83 [Left] O2 Sat by Pulse 100 Oximetry - General Appearance General appearance: well-developed, well-nourished, appears stated age, obese, other (not in distress, right IJ tunnel catheter) EENT: ATNC, PERRL, mucous membranes moist, hearing intact, vision intact Neck: supple Respiratory: Present: Clear to Ascultation Cardiology: regular, S1S2, no murmurs Gastrointestinal: normoactive bowel sounds, no tenderness, no distended, obese Integumentary: no rash, warm and dry Neurologic: no focal deficit, no asterixis, alert and oriented x3 Musculoskeletal: other (2+ edema of both LEs) - Lab 09/25/18 07:30 09/25/18 07:30 Most recent lab results Calcium 7.3 mg/dL (8.4-10.2) L 09/25/18 07:30 Phosphorus 5.00 mg/dL (2.5-4.5) H 09/25/18 07:30 Magnesium 2.60 mg/dL (1.7-2.3) H 09/17/18 15:17 Urine Creatinine 97.5 mg/dL (0.1-20.0) H 09/21/18 07:00 Ur Total Protein 24 Hr 1073.50 mg/dL (2-200) H 09/18/18 10:30 Urine Sodium 53 mmol/L 09/21/18 07:00 Urine Total Protein 708 mg/dL (5-11.8) H 09/21/18 07:00 Medications & Allergies - Medications Allergies/Adverse Reactions: Allergies No Known Allergies Allergy (Unverified 09/17/18 15:05) Home Medications: Home Medications Medication Instructions Recorded Confirmed Last Taken Type Divalproex Sodium [Depakote] 500 mg PO BID 09/17/18 09/17/18 Unknown History Haldol (Nf) 09/17/18 Unknown History Invega Sustenna 09/17/18 Unknown History diphenhydrAMINE [Benadryl CAP] 50 mg PO HS 09/17/18 09/17/18 Unknown History Active Medications: Generic Name Dose Route Start Last Admin Trade Name Freq PRN Reason Stop Dose Admin Acetaminophen 650 mg 09/18/18 02:40 09/23/18 16:28 Tylenol PO 650 mg Q4H PRN Administration Pain MILD(1-3)/Fever >100.5/MENDOZA Atorvastatin Calcium 40 mg 09/18/18 22:00 09/24/18 22:27 Lipitor PO 40 mg QHS LUZ Administration Azithromycin 500 mg 09/25/18 10:00 09/25/18 09:36 Zithromax PO 500 mg QDAY LUZ Administration Diphenhydramine HCl 50 mg 09/18/18 22:00 09/24/18 22:28 Benadryl PO 50 mg HS LUZ Administration Divalproex Sodium 500 mg 09/18/18 10:00 09/25/18 09:[address] PO 500 mg BID LUZ Administration Enoxaparin Sodium 30 mg 09/20/18 22:00 09/24/18 22:27 Lovenox SUB-Q 30 mg QDAY@2200 LUZ Administration Hydralazine HCl 10 mg 09/22/18 06:28 09/22/18 12:12 Apresoline IV 10 mg Q4H PRN Administration systolic b/p >165 Hydralazine HCl 50 mg 09/22/18 14:00 09/25/18 07:44 Apresoline PO Not Given Q8HR LUZ Hydromorphone HCl 0.5 mg 09/18/18 02:40 Dilaudid IV Q3H PRN Pain , Severe (7-10) Furosemide 100 mg/ Sodium 100 mls @ 10 mls/hr 09/23/18 14:00 Chloride IV DIRECT LUZ 10 MG/HR Sodium Chloride 100 mls @ 999 mls/hr 09/24/18 11:16 Nacl 0.9% IV KUSHAL PRN Hypotension Ceftriaxone Sodium 1 gm in 50 mls @ 100 mls/hr 09/25/18 10:00 Rocephin/Ns 1 Gm/50 Ml IV Q24HR [facility] Protocol Ondansetron HCl 4 mg 09/18/18 02:40 09/23/18 08:45 Zofran IV 4 mg Q8H PRN Administration Nausea And Vomiting Oxycodone/Acetaminophen 1 tab 09/18/18 02:40 09/21/18 22:11 Percocet 5/325 PO 1 tab Q6H PRN Administration Pain, Moderate (4-6) Pantoprazole Sodium 40 mg 09/24/18 12:00 09/24/18 22:28 Protonix IV 40 mg BID LUZ Administration Sodium Chloride 10 ml 09/18/18 10:00 09/24/18 23:31 Sodium Chloride Flush Syringe 10 Ml IV 10 ml BID LUZ Administration Sodium Chloride 10 ml 09/18/18 02:40 Sodium Chloride Flush Syringe 10 Ml IV PRN PRN LINE FLUSH
[2018-09-25] MEDS ORDERED: NACL 0.9% 100 ML IV PRN (10:02)
[2018-09-25] MEDS: PROTONIX IV SCH ×2 (11:17→22:30)
[2018-09-25] MEDS: ROCEPHIN/NS 1 GM/50 ML 1 GM/50 ML BAG IV SCH (11:17)
--- NOTE | 2018-09-25 11:57 | Progress Note ---
Subjective - Reason for Consult Consult date: 09/25/18 Reason for consult: psychiatry Follow-up - Chief Complaint Chief complaint: "Hello" 37 y. o AA female who presented to the ER for generalized body swelling and SOB. Today the patient is calm and cooperative during the assessment. She stated that she is seen by [facility] ([facility]) for her mental health services. Per collateral information from Rao Galeas a rep from [facility]. He stated that the patient receive the monthly Invega injection (last injection 11 Sep 2018), Hladol, and Benadryl. He stated the patient has an [facility] Team. The patient stated that she is compliant with her medications. She denies SI/HI's and AVH's. Mental Status Exam - Vital signs Last Vital Signs Temp 98.5 F 09/25/18 11:24 Pulse 107 H 09/25/18 11:24 Resp 20 09/25/18 11:24 BP 146/77 09/25/18 11:24 Pulse Ox 95 09/25/18 11:24 - Exam Narrative exam: MSE: Appearance: calm, cooperative Behavior: regular eye contact Speech: regular rate and loud tone Mood: "okay" Affect: congruent to mood Thought Process: linear Thought Content: denies SI/HI's and AVH's Motor Activity: sitting up in the bed Cognition: A/O x3 Insight: fair Judgment: fair Assessment and Plan Impression: Hx of Schizophrenia. Today the patient is calm and cooperative during the assessment. QTc 413. Recommendation/Plan: Start home medication Haldol 5 mg PO for schizophrenia,. Continue Benadryl 50 mg PO HS for EPS prevention and Depakote 500 mg PO BID for mood. [facility]2018. Dispo: the patient can follow up with [facility] ([facility]) for out patient psy services when discharged. Staffed with Dr Shae Long.
--- NOTE | 2018-09-25 12:30 | Gastroenterology Progress Note ---
Assessment and Plan 1.GI bleed 2.coffee-ground emesis -H/H 6.9/21.5- trending down (anemia noted on admission; unknown baseline) -continue to monitor H/H and transfuse as needed -pateitn reports BM x 1 this am with black stool. No hematemesis or hematochezia . -currently HD stable -etiology unclear -will schedule for EGD tomorrow (ate breakfast this am) -change diet to clear liquids -continue PPI -continue supportive care -will follow 2.acute kidney injury/hyperkalemia 3.nephrotic syndrome 4.volume overload 5.HTN 6.anemia 7.Schizophrenia/bipolar- psych consult pending 8.sepsis-pneumonia/UTI 9.medical noncompliance Subjective Date of service: 09/25/18 Principal diagnosis: coffee-ground emesis Interval history: No acute distress. Patient reports BM x 1 this am with black stool. Denies abd pain or N/V. No hematemesis or hematochezia. Objective - Constitutional Vitals: Temp Pulse Resp BP Pulse Ox 98.5 F 107 H 20 146/77 95 09/25/18 11:24 09/25/18 11:24 09/25/18 11:24 09/25/18 11:24 09/25/18 11:24 General appearance: no acute distress, obese - Respiratory Respiratory: bilateral: diminished - Cardiovascular Rhythm: other (tachycardia) - Gastrointestinal General gastrointestinal: Present: soft, non-tender, non-distended, normal bowel sounds, other (obese) - Labs CBC & Chem 7: 09/25/18 07:30 09/25/18 07:30 Labs: Laboratory Results - last 24 hr 09/19/18 09/25/18 09/25/18 05:45 07:30 07:30 WBC 6.3 RBC 2.55 L Hgb 6.9 L Hct 21.5 L MCV 84 MCH 27 L MCHC 32 RDW 19.5 H Plt Count 178 Lymph % (Auto) 19.4 Mcminn % (Auto) 12.2 H Eos % (Auto) 0.5 Baso % (Auto) 0.2 Lymph # 1.2 Mcminn # 0.8 Eos # 0.0 Baso # 0.0 Seg Neutrophils % 67.7 Seg Neutrophils # 4.3 Sodium 139 Potassium 4.7 Chloride 107.0 Carbon Dioxide 24 Anion Gap 13 BUN 33 H Creatinine 4.4 H Estimated GFR 13 BUN/Creatinine Ratio 8 Glucose 102 H Calcium 7.3 L Phosphorus 5.00 H BI Screen Negative
--- NOTE | 2018-09-25 15:03 | Progress Note ---
Assessment and Plan Patient sleeping. Not using her O2. Not responding to verbal stimuli. O2 saturation 95%. No acute respiratory distress.. - Patient Problems (1) Pneumonia involving left lung Current Visit: Yes Status: Acute Plan to address problem: Patient mingo Azithromycin and Ceftrioxone. (2) Acute exacerbation of congestive heart failure Current Visit: Yes Status: Acute Plan to address problem: Management as per cardiology. (3) Nephrotic syndrome Current Visit: Yes Status: Acute Plan to address problem: Management as per nephrology. Subjective Date of service: 09/25/18 Principal diagnosis: coffee-ground emesis Interval history: Patient sleeping. Not using her O2. Not responding to verbal stimuli. O2 saturation 95%. No acute respiratory distress. Objective Vital Signs - 12hr 09/25/18 09/25/18 06:03 11:24 Temperature 98.5 F Pulse Rate 107 H Respiratory 20 Rate Blood Pressure 131/74 146/77 O2 Sat by Pulse 95 Oximetry Constitutional: no acute distress, alert Eyes: non-icteric ENT: oropharynx moist Neck: supple, no JVD Ascultation: Bilateral: diminished breath sounds Cardiovascular: regular rate and rhythm Gastrointestinal: normoactive bowel sounds, soft, non-tender Integumentary: normal Extremities: no cyanosis, no edema Neurologic: non-focal exam, pupils equal and round, CN II-XII normal Psychiatric: depressed CBC and BMP: 09/25/18 07:30 09/25/18 07:30 ABG, PT/INR, D-dimer: ABG POC ABG pH 7.375 (7.35-7.45) 09/23/18 15:06 POC ABG pCO2 36.3 (35-45) 09/23/18 15:06 POC ABG pO2 99 (80-105) 09/23/18 15:06 POC ABG HCO3 21.2 09/23/18 15:06 POC ABG Total CO2 22 09/23/18 15:06 POC ABG O2 Sat 98 09/23/18 15:06 PT/INR, D-dimer PT 13.0 Sec. (12.2-14.9) 09/17/18 15:17 INR 0.93 (0.87-1.13) 09/17/18 15:17 Abnormal lab findings: Abnormal Labs 09/17/18 09/17/18 09/17/18 15:17 15:17 15:17 WBC RBC 3.34 L Hgb 9.1 L Hct 27.9 L MCH 27 L RDW 20.5 H Lymph % (Auto) Harding % (Auto) 8.8 H APTT 22.2 L Potassium Chloride 107.7 H BUN 37 H Creatinine 2.3 H Glucose Calcium 7.4 L Phosphorus Magnesium 2.60 H ALT NT-Pro-B Natriuret Pep 992.5 H Serum Total Protein Total Protein 4.1 L Albumin 1.3 L Gamma Globulins PEP Interpretation Urine WBC (Auto) Urine Creatinine Ur Creatinine 24 Hour Ur Total Protein 24 Hr Urine Total Protein 09/17/18 09/18/18 09/18/18 17:18 05:22 05:22 WBC 4.4 L RBC 3.06 L Hgb 8.5 L Hct 25.5 L MCH RDW 20.0 H Lymph % (Auto) 36.5 H Harding % (Auto) 12.3 H APTT Potassium Chloride 107.2 H BUN 37 H Creatinine 2.2 H Glucose Calcium 7.4 L Phosphorus Magnesium ALT 6 L NT-Pro-B Natriuret Pep Serum Total Protein Total Protein 3.9 L Albumin 1.4 L Gamma Globulins PEP Interpretation Urine WBC (Auto) 15.0 H Urine Creatinine Ur Creatinine 24 Hour Ur Total Protein 24 Hr Urine Total Protein 09/18/18 09/19/18 09/19/18 10:30 05:45 05:45 WBC RBC Hgb Hct MCH RDW Lymph % (Auto) Harding % (Auto) APTT Potassium Chloride BUN 37 H Creatinine 2.1 H Glucose Calcium 7.3 L Phosphorus Magnesium ALT NT-Pro-B Natriuret Pep Serum Total Protein 3.4 L Total Protein Albumin 1.2 L Gamma Globulins 0.5 L PEP Interpretation see below H Urine WBC (Auto) Urine Creatinine 147.5 H Ur Creatinine 24 Hour 0.7 L Ur Total Protein 24 Hr 1073.50 H Urine Total Protein 226 H 09/20/18 09/20/18 09/21/18 04:56 15:15 06:13 WBC RBC 2.84 L Hgb 7.8 L Hct 24.1 L MCH 27 L RDW 19.8 H Lymph % (Auto) Harding % (Auto) 12.9 H APTT Potassium 5.4 H 5.5 H Chloride 108.2 H BUN 38 H Creatinine 2.4 H Glucose Calcium 7.2 L Phosphorus Magnesium ALT NT-Pro-B Natriuret Pep Serum Total Protein Total Protein Albumin Gamma Globulins PEP Interpretation Urine WBC (Auto) Urine Creatinine Ur Creatinine 24 Hour Ur Total Protein 24 Hr Urine Total Protein 09/21/18 09/21/18 09/22/18 06:13 07:00 10:12 WBC RBC Hgb Hct MCH RDW Lymph % (Auto) Harding % (Auto) APTT Potassium 5.2 H Chloride 108.2 H 111.5 H BUN 39 H 40 H Creatinine 2.7 H 3.1 H Glucose Calcium 7.3 L 7.1 L Phosphorus Magnesium ALT NT-Pro-B Natriuret Pep Serum Total Protein Total Protein Albumin Gamma Globulins PEP Interpretation Urine WBC (Auto) Urine Creatinine 97.5 H Ur Creatinine 24 Hour Ur Total Protein 24 Hr Urine Total Protein 708 H 09/23/18 09/25/18 09/25/18 04:40 07:30 07:30 WBC RBC 2.55 L Hgb 6.9 L Hct 21.5 L MCH 27 L RDW 19.5 H Lymph % (Auto) Harding % (Auto) 12.2 H APTT Potassium Chloride 109.1 H BUN 42 H 33 H Creatinine 3.8 H 4.4 H Glucose 102 H Calcium 7.2 L 7.3 L Phosphorus 5.00 H Magnesium ALT NT-Pro-B Natriuret Pep Serum Total Protein Total Protein Albumin Gamma Globulins PEP Interpretation Urine WBC (Auto) Urine Creatinine Ur Creatinine 24 Hour Ur Total Protein 24 Hr Urine Total Protein
[2018-09-25] MEDS: SODIUM CHLORIDE FLUSH SYRINGE 10 ML IV SCH ×2 (15:15→22:30)
--- NOTE | 2018-09-25 16:52 | Progress Note ---
Assessment and Plan Assessment and plan: Patient is a 47 yo woman with a history of Obesity, HTN and Schizophrenia who presented to the ER with bilateral leg swelling, SOB and increase in the abdominal girth and weight gain of ~86 pounds in 10 weeks. Patient denies any h/o heart disease or Liver problem. Labs were significant for creatinine of 2.2, Hb 8.5, albumin 1.4 and 3+ protein in the urine. Patient was admitted with provisional diagnosis of Nephrotic syndrome. Nephrology was consulted for further evaluation. =Nephrotic syndrome. Urine protein quantification pending. Follow BI, ANCA and complements. Renal ultrasound negative. Patient unfortunately refused kidney biopsy. =Coffee-ground emesis. GI consulted H&H dropped and she refused blood transfusion today. =Right lower extremity thigh pain. Doppler lower extremities bilaterally negative for DVT =Left breast swelling? =Morbid obesity, bmi 55.2: lifestyle modification =Medical noncompliance. Patient intermittently at times refusing care. Psych consultation pending for decision making capacity. =Schizophrenia, Bipolar disorder. Continue current medications.. As above. Psych consulted =Hyperkalemia. Kayexalate. Recheck BMP in the morning. =Sepsis. Left lower lobe pneumonia. Present on admission. Continue IV antibiotics. Etiology secondary to pneumonia and UTI. =ARF, vasomotor nephropathy, poa =UTI. Continue Rocephin. Deconditioning. PT/OT evaluation. Await recommendations Disposition. Psychiatrist Dr. Tatum (with [place] [facility]) notified with updates of care [phone]. If Dr. Tatum is not available, contact coordinator of care Rao Galeas [phone]. EGD tomorrow. pt refused blood transfusion today History Interval history: Patient was seen and examined. Follow-up on current diagnosis of GIB. Overnight uneventful. Patient denies any chest pain, shortness breath, nausea/vomiting or severe headaches. Imaging, nursing note, chart, labs and old chart reviewed. Discussed with patient. Hospitalist Physical - Physical exam Narrative exam: GEN: chronic disable, NAD, Awake, Alert, Orientated HEENT: NCAT, EOMI, PERRL, OP Clear NECK: supple, no adenopathy, no thyromegaly, no JVD CVS/HEART: Regular tachy, normal S1S2, pulses present bilaterally CHEST/LUNGS: diminished bs bilateral, poor effort, Symmetrical chest expansion, good air entry bilaterally GI/Abdomen: soft, NTND, good bowel sounds, no guarding or rebound /Bladder: no suprapubic tenderness, no CVA or paraspinal tenderness EXT/Skin: ble edema no obvious rash MSK: FROM x 4 Neuro: CN 2-12 grossly intact, no new focal deficits Psych: calm - Constitutional Vitals: Temp Pulse Resp BP Pulse Ox 98.5 F 107 H 20 146/77 95 09/25/18 11:24 09/25/18 11:24 09/25/18 11:24 09/25/18 11:24 09/25/18 11:24 General appearance: Present: no acute distress, well-nourished Results - Labs CBC & Chem 7: 09/25/18 07:30 09/25/18 07:30 Labs: Laboratory Last Values WBC 6.3 K/mm3 (4.5-11.0) 09/25/18 07:30 RBC 2.55 M/mm3 (3.65-5.03) L 09/25/18 07:30 Hgb 6.9 gm/dl (10.1-14.3) L 09/25/18 07:30 Hct 21.5 % (30.3-42.9) L 09/25/18 07:30 MCV 84 fl (79-97) 09/25/18 07:30 MCH 27 pg (28-32) L 09/25/18 07:30 MCHC 32 % (30-34) 09/25/18 07:30 RDW 19.5 % (13.2-15.2) H 09/25/18 07:30 Plt Count 178 K/mm3 (140-440) 09/25/18 07:30 Lymph % (Auto) 19.4 % (13.4-35.0) 09/25/18 07:30 [place] % (Auto) 12.2 % (0.0-7.3) H 09/25/18 07:30 Eos % (Auto) 0.5 % (0.0-4.3) 09/25/18 07:30 Baso % (Auto) 0.2 % (0.0-1.8) 09/25/18 07:30 Lymph # 1.2 K/mm3 (1.2-5.4) 09/25/18 07:30 [place] # 0.8 K/mm3 (0.0-0.8) 09/25/18 07:30 Eos # 0.0 K/mm3 (0.0-0.4) 09/25/18 07:30 Baso # 0.0 K/mm3 (0.0-0.1) 09/25/18 07:30 Seg Neutrophils % 67.7 % (40.0-70.0) 09/25/18 07:30 Seg Neutrophils # 4.3 K/mm3 (1.8-7.7) 09/25/18 07:30 PT 13.0 Sec. (12.2-14.9) 09/17/18 15:17 INR 0.93 (0.87-1.13) 09/17/18 15:17 APTT 22.2 Sec. (24.2-36.6) L 09/17/18 15:17 POC ABG pH 7.375 (7.35-7.45) 09/23/18 15:06 POC ABG pCO2 36.3 (35-45) 09/23/18 15:06 POC ABG pO2 99 (80-105) 09/23/18 15:06 POC ABG HCO3 21.2 09/23/18 15:06 POC ABG Total CO2 22 09/23/18 15:06 POC ABG O2 Sat 98 09/23/18 15:06 POC ABG Base Excess -4 09/23/18 15:06 FiO2 2 % 09/23/18 15:06 Sodium 139 mmol/L (137-145) 09/25/18 07:30 Potassium 4.7 mmol/L (3.6-5.0) 09/25/18 07:30 Chloride 107.0 mmol/L (98-107) 09/25/18 07:30 Carbon Dioxide 24 mmol/L (22-30) 09/25/18 07:30 Anion Gap 13 mmol/L 09/25/18 07:30 BUN 33 mg/dL (7-17) H 09/25/18 07:30 Creatinine 4.4 mg/dL (0.7-1.2) H 09/25/18 07:30 Estimated GFR 13 ml/min 09/25/18 07:30 BUN/Creatinine Ratio 8 % 09/25/18 07:30 Glucose 102 mg/dL (65-100) H 09/25/18 07:30 Calcium 7.3 mg/dL (8.4-10.2) L 09/25/18 07:30 Phosphorus 5.00 mg/dL (2.5-4.5) H 09/25/18 07:30 Magnesium 2.60 mg/dL (1.7-2.3) H 09/17/18 15:17 Total Bilirubin < 0.20 mg/dL (0.1-1.2) 09/18/18 05:22 AST 13 units/L (5-40) 09/18/18 05:22 ALT 6 units/L (7-56) L 09/18/18 05:22 Alkaline Phosphatase 51 units/L (35-129) 09/18/18 05:22 Troponin T 0.012 ng/mL (0.00-0.029) 09/17/18 15:17 NT-Pro-B Natriuret Pep 992.5 pg/mL (0-450) H 09/17/18 15:17 Serum Total Protein 3.4 g/dL (6.1-8.1) L 09/19/18 05:45 Total Protein 3.9 g/dL (6.3-8.2) L 09/18/18 05:22 Albumin 1.2 g/dL (3.8-4.8) L 09/19/18 05:45 Albumin/Globulin Ratio 0.6 % 09/18/18 05:22 Bgfxk-9-Yfcekujpt 0.3 g/dL (0.2-0.3) 09/19/18 05:45 Lbppu-0-Pxpivznme 0.8 g/dL (0.5-0.9) 09/19/18 05:45 Beta Globulins 0.4 g/dL (0.2-0.5) 09/19/18 05:45 Gamma Globulins 0.5 g/dL (0.8-1.7) L 09/19/18 05:45 Abnorm Protein Band 1 see below 09/19/18 05:45 PEP Interpretation see below H 09/19/18 05:45 Amylase 53 units/L (27-131) 09/25/18 13:53 Lipase 48 units/L (13-60) 09/25/18 13:53 HCG, Qual Negative (Negative) 09/25/18 13:53 PTH Intact 46.07 pg/mL (15-65) 09/19/18 05:45 Urine Color Yellow (Yellow) 09/17/18 17:18 Urine Turbidity Cloudy (Clear) 09/17/18 17:18 Urine pH 5.0 (5.0-7.0) 09/17/18 17:18 Ur Specific [place] 1.029 (1.003-1.030) 09/17/18 17:18 Urine Protein >500 mg/dL (Negative) 09/17/18 17:18 Urine Glucose (UA) Neg mg/dL (Negative) 09/17/18 17:18 Urine Ketones Tr mg/dL (Negative) 09/17/18 17:18 Urine Blood Sm (Negative) 09/17/18 17:18 Urine Nitrite Neg (Negative) 09/17/18 17:18 Urine Bilirubin Neg (Negative) 09/17/18 17:18 Urine Urobilinogen < 2.0 mg/dL (<2.0) 09/17/18 17:18 Ur Leukocyte Esterase Neg (Negative) 09/17/18 17:18 Urine WBC (Auto) 15.0 /HPF (0.0-6.0) H 09/17/18 17:18 Urine RBC (Auto) 13.0 /HPF (0.0-6.0) 09/17/18 17:18 U Epithel Cells (Auto) 6.0 /HPF (0-13.0) 09/17/18 17:18 Urine Bacteria (Auto) 2+ /HPF (Negative) 09/17/18 17:18 Urine WBC Clumps 2+ /HPF 09/17/18 17:18 Hyaline Casts 6 /LPF 09/17/18 17:18 Urine Mucus Few /HPF 09/17/18 17:18 Urine Yeast (Budding) 2+ /HPF 09/17/18 17:18 Urine Eosinophils None seen (None Seen) 09/18/18 10:30 Urine Total Volume 475 ml 09/18/18 10:30 Urine Creatinine 97.5 mg/dL (0.1-20.0) H 09/21/18 07:00 Ur Creatinine 24 Hour 0.7 (0.8-2.8) L 09/18/18 10:30 Ur Total Protein 24 Hr 1073.50 mg/dL (2-200) H 09/18/18 10:30 Protein/Creatinin Ratio 7.26 09/21/18 07:00 Urine Sodium 53 mmol/L 09/21/18 07:00 Urine Urea Nitrogen 467 09/18/18 10:30 Ur Urea Nitrogen 24 Hr 2.22 09/18/18 10:30 Urine Total Protein 708 mg/dL (5-11.8) H 09/21/18 07:00 Urine Opiates Screen Presumptive negative 09/17/18 17:18 Urine Methadone Screen Presumptive negative 09/17/18 17:18 Ur Barbiturates Screen Presumptive negative 09/17/18 17:18 Ur Phencyclidine Scrn Presumptive negative 09/17/18 17:18 Ur Amphetamines Screen Presumptive negative 09/17/18 17:18 U Benzodiazepines Scrn Presumptive negative 09/17/18 17:18 Urine Cocaine Screen Presumptive negative 09/17/18 17:18 U Marijuana (THC) Screen Presumptive negative 09/17/18 17:18 Drugs of Abuse Note Disclamer 09/17/18 17:18 BI Screen Negative (Negative) 09/19/18 05:45 Complement C3 143 mg/dL (83-193) 09/19/18 05:45 Complement C4 56 mg/dL (15-57) 09/19/18 05:45 Hepatitis A IgM Ab Non-reactive (NonReactive) 09/19/18 05:45 Hep Bs Antigen Non-reactive (Negative) 09/19/18 05:45 Hep B Core IgM Ab Non-reactive (NonReactive) 09/19/18 05:45 Hepatitis C Antibody Non-reactive (NonReactive) 09/19/18 05:45 Nutrition/Malnutrition Assess - Dietary Evaluation Nutrition/Malnutrition Findings: Nutrition Notes Start: 09/24/18 15:36 Freq: Status: Active Protocol: Document 09/24/18 15:36 RM (Rec: 09/24/18 15:46 RM [id number]) Nutrition Notes Need for Assessment generated from: LOS Initial or Follow up Assessment Current Diagnosis Sepsis Other Pertinent Diagnosis Schizophrenia,Nephrotic syndrome,UTI,Pneu,Coffee ground emesis Current Diet Cardiac Labs/Tests BUN 42, Creat 3.8, GFR 15 Pertinent Medications Lasix Height 5 ft 6 in Weight 155 kg Usual Body Weight 120 kg [place] Body Weight (kg) 59.09 BMI 55.1 Weight change and time frame Wt gain likely d/t fluid change Subjective/Other Information Screened for LOS. Pt stated that her appetite is good but she is only drinking the fluids from her tray and sometimes pudding d/t fear of gaining wt. Fire Extinguisher Installer explained to pt that eating more of her meals would not cause her to gain wt and that previous wt gain was likely d/t nephrotic syndrome. Explained importance of eating to recover from illness. Encouraged pt to eat more and pt agreed. Stated UBW was 265 lbs 2 weeks ago. Burn Absent Trauma Absent #1 Nutrition Diagnosis Inadequate oral intake Etiology fear of wt gain As Evidenced by Signs and Symptoms pt statement that she only drinks the fluids from her tray and sometimes pudding Is patient on ventilator? No Is Patient Ambulatory and/or Out of Bed Yes [facility] [ 2868.775 NUTR.MSJOOB] Kcal/Kg value to use for calculation 15 Approximate Energy Requirements Using 2325 kcal/Kg Calculation Used for Recommendations Kcal/kg Additional Notes Protein Needs: 86-107g (0.8-1g /kg 107kg adjBW) Fluid Needs: 1 ml/kcal Nutrition Intervention Change Diet Order: Continue current Goal #1 Meet at least 75% of calorie and protein needs via PO intakes Anticipated Discharge Needs: Cardiac diet Follow-Up By: 09/26/18 Additional Comments Follow for PO intakes, need for ONS
[2018-09-25] MEDS ORDERED: NACL 0.9 (PRIMING MACHINE ONLY DIALYSIS) MC ONE (20:24)
[2018-09-25 20:35] LABS: Myeloperoxidase Antibody <1.0 AI (<1.0)
[2018-09-25] MEDS: HALDOL PO SCH (22:30)
[2018-09-25] MEDS: LOVENOX SUB-Q SCH (22:30)
[2018-09-25] MEDS: BENADRYL PO SCH (22:30)
[2018-09-25] MEDS: TYLENOL PO PRN (23:12)
[2018-09-26] MEDS: APRESOLINE PO SCH ×3 (06:41→23:17)
[2018-09-26 07:35] LABS: Hemoglobin 6.7 gm/dl (10.1-14.3)
[2018-09-26] MEDS ORDERED: WATER FOR IRRIG STERILE IR ONE (07:57)
[2018-09-26] MEDS ORDERED: NACL 0.9% 1000 ML 1,000 ML IV SCH (08:30)
[2018-09-26] MEDS ORDERED: DIPRIVAN 10 MG/ML IV ONE ×2 (10:04→10:05)
--- NOTE | 2018-09-26 10:13 | Consultation ---
History of Present Illness - Reason for Consult Consult date: 09/26/18 End stage renal disease - History of Present Illness Patient with a history of anasarca, pulmonary edema and end-stage renal disease due to dialysis. The patient is somnolent on examination. Past History Past Medical History: ESRD, other (Scizophrenia) Social history: no significant social history Family history: no significant family history Medications and Allergies Allergies Allergy/AdvReac Type Severity Reaction Status Date / Time No Known Allergies Allergy Unverified 09/17/18 15:05 Home Medications Medication Instructions Recorded Confirmed Last Taken Type Divalproex Sodium [Depakote] 500 mg PO BID 09/17/18 09/17/18 Unknown History Haldol (Nf) 09/17/18 Unknown History Invega Sustenna 09/17/18 Unknown History diphenhydrAMINE [Benadryl CAP] 50 mg PO HS 09/17/18 09/17/18 Unknown History Active Meds: Active Medications Acetaminophen (Tylenol) 650 mg PO Q4H PRN PRN Reason: Pain MILD(1-3)/Fever >100.5/MENDOZA Last Admin: 09/25/18 23:12 Dose: 650 mg Documented by: Atorvastatin Calcium (Lipitor) 40 mg PO QHS [facility] Last Admin: 09/25/18 22:30 Dose: Not Given Documented by: Azithromycin (Zithromax) 500 mg PO QDAY [facility] Last Admin: 09/25/18 09:36 Dose: 500 mg Documented by: Diphenhydramine HCl (Benadryl) 50 mg PO [facility] Last Admin: 09/25/18 22:30 Dose: Not Given Documented by: Divalproex Sodium (Depakote Dr) 500 mg PO BID [facility] Last Admin: 09/25/18 22:30 Dose: Not Given Documented by: Enoxaparin Sodium (Lovenox) 30 mg SUB-Q QDAY@2200 [facility] Last Admin: 09/25/18 22:30 Dose: Not Given Documented by: Haloperidol (Haldol) 5 mg PO [facility] Last Admin: 09/25/18 22:30 Dose: Not Given Documented by: Hydralazine HCl (Apresoline) 10 mg IV Q4H PRN PRN Reason: systolic b/p >165 Last Admin: 09/22/18 12:12 Dose: 10 mg Documented by: Hydralazine HCl (Apresoline) 50 mg PO Q8HR [facility] Last Admin: 09/26/18 06:41 Dose: Not Given Documented by: Hydromorphone HCl (Dilaudid) 0.5 mg IV Q3H PRN PRN Reason: Pain , Severe (7-10) Furosemide 100 mg/ Sodium (Chloride) 100 mls @ 10 mls/hr IV DIRECT LUZ Ceftriaxone Sodium (Rocephin/Ns 1 Gm/50 Ml) 1 gm in 50 mls @ 100 mls/hr IV Q24HR [facility]; Protocol Last Admin: 09/25/18 11:17 Dose: Not Given Documented by: Sodium Chloride (Nacl 0.9%) 100 mls @ 999 mls/hr IV KUSHAL PRN PRN Reason: Hypotension Sodium Chloride (Nacl 0.9% 1000 Ml) 1,000 mls @ 50 mls/hr IV DIRECT LUZ Last Admin: 09/26/18 09:04 Dose: 50 mls/hr Documented by: Ondansetron HCl (Zofran) 4 mg IV Q8H PRN PRN Reason: Nausea And Vomiting Last Admin: 09/23/18 08:45 Dose: 4 mg Documented by: Oxycodone/Acetaminophen (Percocet 5/325) 1 tab PO Q6H PRN PRN Reason: Pain, Moderate (4-6) Last Admin: 09/21/18 22:11 Dose: 1 tab Documented by: Pantoprazole Sodium (Protonix) 40 mg IV BID [facility] Last Admin: 09/25/18 22:30 Dose: Not Given Documented by: Sodium Chloride (Sodium Chloride Flush Syringe 10 Ml) 10 ml IV BID [facility] Last Admin: 09/25/18 22:30 Dose: Not Given Documented by: Sodium Chloride (Sodium Chloride Flush Syringe 10 Ml) 10 ml IV PRN PRN PRN Reason: LINE FLUSH Review of Systems ROS unobtainable: due to mental status Exam - Constitutional Vitals: Temp Pulse Resp BP Pulse Ox 0759 F H 99 H 18 142/84 95 09/26/18 08:13 09/26/18 08:13 09/26/18 08:13 09/26/18 08:13 09/26/18 08:13 General appearance: Present: no acute distress, obese - EENT Eyes: Present: EOM intact ENT: hearing intact - Neck Neck: Present: normal ROM - Respiratory Respiratory effort: normal - Extremities Extremity abnormal: edema - Abdominal General gastrointestinal: Present: deferred - Rectal Rectal Exam: deferred - Psychiatric Psychiatric: cooperative Results - Labs CBC & Chem 7: 09/26/18 07:17 09/26/18 07:17 Labs: Abnormal lab results 09/26/18 09/26/18 09/26/18 Range/Units 07:17 07:17 07:17 Hgb 6.7 L (10.1-14.3) gm/dl Hct 20.0 L (30.3-42.9) % BUN 24 H (7-17) mg/dL Creatinine 4.1 H (0.7-1.2) mg/dL Calcium 7.0 L (8.4-10.2) mg/dL Total Creatine Kinase 559 H (30-135) units/L Valproic Acid 13.2 L (50-100) ug/mL Assessment and Plan The patient was scheduled for placement of tunneled hemodialysis catheter without complication. If the patient requires long-term dialysis access, this can be arranged as an outpatient.
--- NOTE | 2018-09-26 10:15 | Anesthesia Consultation ---
Anesthesia Consult and Med Hx Date of service: 09/26/18 - Airway Anesthetic Teeth Evaluation: Poor (multiple missing teeth) ROM Head & Neck: Adequate Mental/Hyoid Distance: Adequate Mallampati Class: Class III Intubation Access Assessment: Possibly Difficult - Pre-Operative Health Status ASA Pre-Surgery Classification: ASA4, Emergency Proposed Anesthetic Plan: MAC - Pulmonary Hx Smoking: Yes (current smoker) Hx Asthma: No Hx Respiratory Symptoms: Yes (some dyspnea, not on O2) COPD: No Hx Pneumonia: No - Cardiovascular System Hx Hypertension: Yes (pt. cannot remember date) - Central Nervous System Hx Psychiatric Problems: Yes (schizophrenia) - Gastrointestinal Hx Ulcer: Yes (GI bleed) - Endocrine Hx Renal Disease: Yes (acute renal failure) Hx End Stage Renal Disease: No - Other Systems Hx Obesity: Yes (BMI 52.9)
--- NOTE | 2018-09-26 10:17 | Post Operative Note ---
Pre-op diagnosis: gi bleed Post-op diagnosis: same Findings: EGD: large hiatal hernia - m-w tear with pigmented area jut above g-e junction - mild gastritis - negative other Procedure: EGD Anesthesia: MAC Surgeon: KENNY BURCH Estimated blood loss: none Pathology: list Specimen disposition: to lab Condition: stable Disposition: floor
--- NOTE | 2018-09-26 10:22 | Progress Note ---
Assessment and Plan Patient just came from EGD. Not responding to verbal stimuli.Patient is on 2 litres O2. O2 saturation 97%. No acute respiratory distress. - Patient Problems (1) Pneumonia involving left lung Current Visit: Yes Status: Acute Plan to address problem: Patient mingo Azithromycin and Ceftrioxone. Repeating chest xray PA and Lateral tomorrow. (2) Acute exacerbation of congestive heart failure Current Visit: Yes Status: Acute Plan to address problem: Management as per cardiology. (3) Nephrotic syndrome Current Visit: Yes Status: Acute Plan to address problem: Management as per nephrology. Subjective Date of service: 09/26/18 Principal diagnosis: coffee-ground emesis Interval history: Patient just came from EGD. Not responding to verbal stimuli.Patient is on 2 litres o2. O2 saturation 97%. No acute respiratory distress. Objective Vital Signs - 12hr 09/25/18 09/26/18 09/26/18 22:50 08:10 08:13 Temperature 97.6 F 0759 F H 0759 F H Pulse Rate 113 H 99 H 99 H Respiratory 18 18 18 Rate Blood Pressure 141/79 142/84 142/84 O2 Sat by Pulse 97 95 95 Oximetry Constitutional: no acute distress, alert Eyes: non-icteric ENT: oropharynx moist Neck: supple, no JVD Ascultation: Bilateral: diminished breath sounds Cardiovascular: regular rate and rhythm Gastrointestinal: normoactive bowel sounds, soft, non-tender Integumentary: normal Extremities: no cyanosis, no edema Neurologic: non-focal exam, pupils equal and round, CN II-XII normal Psychiatric: depressed CBC and BMP: 09/26/18 07:17 09/26/18 07:17 ABG, PT/INR, D-dimer: ABG POC ABG pH 7.375 (7.35-7.45) 09/23/18 15:06 POC ABG pCO2 36.3 (35-45) 09/23/18 15:06 POC ABG pO2 99 (80-105) 09/23/18 15:06 POC ABG HCO3 21.2 09/23/18 15:06 POC ABG Total CO2 22 09/23/18 15:06 POC ABG O2 Sat 98 09/23/18 15:06 PT/INR, D-dimer PT 13.0 Sec. (12.2-14.9) 09/17/18 15:17 INR 0.93 (0.87-1.13) 09/17/18 15:17 Abnormal lab findings: Abnormal Labs 09/17/18 09/17/18 09/17/18 15:17 15:17 15:17 WBC RBC 3.34 L Hgb 9.1 L Hct 27.9 L MCH 27 L RDW 20.5 H Lymph % (Auto) [place] % (Auto) 8.8 H APTT 22.2 L Potassium Chloride 107.7 H BUN 37 H Creatinine 2.3 H Glucose Calcium 7.4 L Phosphorus Magnesium 2.60 H ALT Total Creatine Kinase NT-Pro-B Natriuret Pep 992.5 H Serum Total Protein Total Protein 4.1 L Albumin 1.3 L Gamma Globulins PEP Interpretation Urine WBC (Auto) Urine Creatinine Ur Creatinine 24 Hour Ur Total Protein 24 Hr Urine Total Protein Valproic Acid 09/17/18 09/18/18 09/18/18 17:18 05:22 05:22 WBC 4.4 L RBC 3.06 L Hgb 8.5 L Hct 25.5 L MCH RDW 20.0 H Lymph % (Auto) 36.5 H [place] % (Auto) 12.3 H APTT Potassium Chloride 107.2 H BUN 37 H Creatinine 2.2 H Glucose Calcium 7.4 L Phosphorus Magnesium ALT 6 L Total Creatine Kinase NT-Pro-B Natriuret Pep Serum Total Protein Total Protein 3.9 L Albumin 1.4 L Gamma Globulins PEP Interpretation Urine WBC (Auto) 15.0 H Urine Creatinine Ur Creatinine 24 Hour Ur Total Protein 24 Hr Urine Total Protein Valproic Acid 09/18/18 09/19/18 09/19/18 10:30 05:45 05:45 WBC RBC Hgb Hct MCH RDW Lymph % (Auto) [place] % (Auto) APTT Potassium Chloride BUN 37 H Creatinine 2.1 H Glucose Calcium 7.3 L Phosphorus Magnesium ALT Total Creatine Kinase NT-Pro-B Natriuret Pep Serum Total Protein 3.4 L Total Protein Albumin 1.2 L Gamma Globulins 0.5 L PEP Interpretation see below H Urine WBC (Auto) Urine Creatinine 147.5 H Ur Creatinine 24 Hour 0.7 L Ur Total Protein 24 Hr 1073.50 H Urine Total Protein 226 H Valproic Acid 09/20/18 09/20/18 09/21/18 04:56 15:15 06:13 WBC RBC 2.84 L Hgb 7.8 L Hct 24.1 L MCH 27 L RDW 19.8 H Lymph % (Auto) [place] % (Auto) 12.9 H APTT Potassium 5.4 H 5.5 H Chloride 108.2 H BUN 38 H Creatinine 2.4 H Glucose Calcium 7.2 L Phosphorus Magnesium ALT Total Creatine Kinase NT-Pro-B Natriuret Pep Serum Total Protein Total Protein Albumin Gamma Globulins PEP Interpretation Urine WBC (Auto) Urine Creatinine Ur Creatinine 24 Hour Ur Total Protein 24 Hr Urine Total Protein Valproic Acid 09/21/18 09/21/18 09/22/18 06:13 07:00 10:12 WBC RBC Hgb Hct MCH RDW Lymph % (Auto) [place] % (Auto) APTT Potassium 5.2 H Chloride 108.2 H 111.5 H BUN 39 H 40 H Creatinine 2.7 H 3.1 H Glucose Calcium 7.3 L 7.1 L Phosphorus Magnesium ALT Total Creatine Kinase NT-Pro-B Natriuret Pep Serum Total Protein Total Protein Albumin Gamma Globulins PEP Interpretation Urine WBC (Auto) Urine Creatinine 97.5 H Ur Creatinine 24 Hour Ur Total Protein 24 Hr Urine Total Protein 708 H Valproic Acid 09/23/18 09/25/18 09/25/18 04:40 07:30 07:30 WBC RBC 2.55 L Hgb 6.9 L Hct 21.5 L MCH 27 L RDW 19.5 H Lymph % (Auto) [place] % (Auto) 12.2 H APTT Potassium Chloride 109.1 H BUN 42 H 33 H Creatinine 3.8 H 4.4 H Glucose 102 H Calcium 7.2 L 7.3 L Phosphorus 5.00 H Magnesium ALT Total Creatine Kinase NT-Pro-B Natriuret Pep Serum Total Protein Total Protein Albumin Gamma Globulins PEP Interpretation Urine WBC (Auto) Urine Creatinine Ur Creatinine 24 Hour Ur Total Protein 24 Hr Urine Total Protein Valproic Acid 09/26/18 09/26/18 09/26/18 07:17 07:17 07:17 WBC RBC Hgb 6.7 L Hct 20.0 L MCH RDW Lymph % (Auto) [place] % (Auto) APTT Potassium Chloride BUN 24 H Creatinine 4.1 H Glucose Calcium 7.0 L Phosphorus Magnesium ALT Total Creatine Kinase 559 H NT-Pro-B Natriuret Pep Serum Total Protein Total Protein Albumin Gamma Globulins PEP Interpretation Urine WBC (Auto) Urine Creatinine Ur Creatinine 24 Hour Ur Total Protein 24 Hr Urine Total Protein Valproic Acid 13.2 L
--- NOTE | 2018-09-26 10:39 | Progress Note ---
Assessment and Plan 1. Acute kidney injury: Renal US was negative. Likely related Nephrotic syndrome. Patient was started on hemodialysis on 09/24/2018 due to worsening renal function, anasarca and suspected pulmonary edema. Tolerated hemodialysis well. Last dialyzed yesterday. Isolated UF today. Bladder scan 36 ml of urine. 2. Nephrotic syndrome: Etiology includes FSGS, Minimal change, Membranous and Lupus nephritis. Complements, BI, ANCA, SPEP and Hepatitis panel are negative. GBM Ab pending. Patient agreed to have HIV status checked. Kidney biospy today if patient agreeable. Patient is on Lovenox to prevent DVT. Continue Statin. 3. Volume overload: UF with HD On Lasix. 4. Hyperkalemia: Improved. 5. HTN. 6. Anemia: Present on admission. GI bleed. Epogen with HD. 7. Medical non-compliance. Subjective Date of service: 09/26/18 Principal diagnosis: coffee-ground emesis Interval history: Patient was seen and examined at the bedside. Doing ok. Objective - Vital Signs Vital signs: Vital Signs - 12hr 09/25/18 09/26/18 09/26/18 22:50 08:10 08:13 Temperature 97.6 F 0759 F H 0759 F H Pulse Rate 113 H 99 H 99 H Respiratory 18 18 18 Rate Blood Pressure 141/79 142/84 142/84 O2 Sat by Pulse 97 95 95 Oximetry - General Appearance General appearance: well-developed, well-nourished, appears stated age, obese, other (not in distress, right IJ tunnel catheter) EENT: ATNC, PERRL, mucous membranes moist, hearing intact, vision intact Neck: supple Respiratory: Present: Clear to Ascultation Cardiology: regular, S1S2, no murmurs Gastrointestinal: normoactive bowel sounds Integumentary: no rash, warm and dry Neurologic: no focal deficit, no asterixis, alert and oriented x3 Musculoskeletal: other (2+ edema of both LEs noted) - Lab 09/26/18 07:17 09/26/18 07:17 Most recent lab results Calcium 7.0 mg/dL (8.4-10.2) L 09/26/18 07:17 Phosphorus 5.00 mg/dL (2.5-4.5) H 09/25/18 07:30 Magnesium 2.60 mg/dL (1.7-2.3) H 09/17/18 15:17 Urine Creatinine 97.5 mg/dL (0.1-20.0) H 09/21/18 07:00 Ur Total Protein 24 Hr 1073.50 mg/dL (2-200) H 09/18/18 10:30 Urine Sodium 53 mmol/L 09/21/18 07:00 Urine Total Protein 708 mg/dL (5-11.8) H 09/21/18 07:00 Medications & Allergies - Medications Allergies/Adverse Reactions: Allergies No Known Allergies Allergy (Unverified 09/17/18 15:05) Home Medications: Home Medications Medication Instructions Recorded Confirmed Last Taken Type Divalproex Sodium [Depakote] 500 mg PO BID 09/17/18 09/17/18 Unknown History Haldol (Nf) 09/17/18 Unknown History Invega Sustenna 09/17/18 Unknown History diphenhydrAMINE [Benadryl CAP] 50 mg PO HS 09/17/18 09/17/18 Unknown History Active Medications: Generic Name Dose Route Start Last Admin Trade Name Freq PRN Reason Stop Dose Admin Acetaminophen 650 mg 09/18/18 02:40 09/25/18 23:12 Tylenol PO 650 mg Q4H PRN Administration Pain MILD(1-3)/Fever >100.5/MENDOZA Atorvastatin Calcium 40 mg 09/18/18 22:00 09/25/18 22:30 Lipitor PO Not Given QHS LUZ Azithromycin 500 mg 09/25/18 10:00 09/25/18 09:36 Zithromax PO 500 mg QDAY LUZ Administration Diphenhydramine HCl 50 mg 09/18/18 22:00 09/25/18 22:30 Benadryl PO Not Given HS LUZ Divalproex Sodium 500 mg 09/18/18 10:00 09/25/18 22:[address] PO Not Given BID LUZ Enoxaparin Sodium 30 mg 09/20/18 22:00 09/25/18 22:30 Lovenox SUB-Q Not Given QDAY@2200 LUZ Haloperidol 5 mg 09/25/18 22:00 09/25/18 22:30 Haldol PO Not Given HS [facility] Hydralazine HCl 10 mg 09/22/18 06:28 09/22/18 12:12 Apresoline IV 10 mg Q4H PRN Administration systolic b/p >165 Hydralazine HCl 50 mg 09/22/18 14:00 09/26/18 06:41 Apresoline PO Not Given Q8HR LUZ Hydromorphone HCl 0.5 mg 09/18/18 02:40 Dilaudid IV Q3H PRN Pain , Severe (7-10) Furosemide 100 mg/ Sodium 100 mls @ 10 mls/hr 09/23/18 14:00 Chloride IV DIRECT LUZ 10 MG/HR Ceftriaxone Sodium 1 gm in 50 mls @ 100 mls/hr 09/25/18 10:00 09/25/18 11:17 Rocephin/Ns 1 Gm/50 Ml IV Not Given Q24HR LUZ Protocol Sodium Chloride 100 mls @ 999 mls/hr 09/25/18 10:02 Nacl 0.9% IV KUSHAL PRN Hypotension Sodium Chloride 1,000 mls @ 50 mls/hr 09/26/18 08:30 09/26/18 09:04 Nacl 0.9% 1000 Ml IV 50 mls/hr DIRECT LUZ Administration Ondansetron HCl 4 mg 09/18/18 02:40 09/23/18 08:45 Zofran IV 4 mg Q8H PRN Administration Nausea And Vomiting Oxycodone/Acetaminophen 1 tab 09/18/18 02:40 09/21/18 22:11 Percocet 5/325 PO 1 tab Q6H PRN Administration Pain, Moderate (4-6) Pantoprazole Sodium 40 mg 09/24/18 12:00 09/25/18 22:30 Protonix IV Not Given BID LUZ Sodium Chloride 10 ml 09/18/18 10:00 09/25/18 22:30 Sodium Chloride Flush Syringe 10 Ml IV Not Given BID LUZ Sodium Chloride 10 ml 09/18/18 02:40 Sodium Chloride Flush Syringe 10 Ml IV PRN PRN LINE FLUSH
--- NOTE | 2018-09-26 12:22 | Operative Report ---
PROCEDURE: EGD. INDICATIONS: 1. Anemia. 2. Gastrointestinal bleed. MEDICATIONS: Propofol per INFORMATION SECURITY ASSOCIATE. COMPLICATIONS: None. DESCRIPTION OF PROCEDURE: The patient was brought to procedure suite. The patient had procedure discussed with her at length. All risks, complications, and benefits discussed, after which the patient signed for the procedure to be performed. The patient was placed in left lateral decubitus position. Mouth block was placed in the patient's oral cavity. After adequate sedation medication as above, endoscope was introduced into the mouth and brought to level of the second portion of duodenum. Retroflexion view was performed. The patient's vital signs remained stable throughout the procedure. FINDINGS: There was noted to be a large hiatal hernia in GE junction, which was 35 cm from the gums. In the area of the GE junction, there was noted to be a medium size linear tear with a pigmented area just above the GE junction consistent with a healing Radha-Mendez tear. No interventions were performed. There was irregular Z line, probably from acid reflux. The esophagus otherwise appeared to be normal. Mild gastritis noted in the stomach. Stomach otherwise appeared to be normal. The duodenum appeared to be normal. Retroflexion view performed in the stomach showed no other pathology other than noted above. The patient tolerated the procedure well. No complications. IMPRESSION: 1. Large hiatal hernia. 2. Otherwise stable pigmented area, but no significant stigmata of bleeding requiring treatment at this time. 3. Gastritis. 4. Otherwise normal esophagogastroduodenoscopy. RECOMMENDATIONS: 1. PPI daily. 2. Follow hematocrit and transfuse as needed. 3. Avoid NSAIDs and aspirin. 4. If stable in a.m., okay to discharge from GI standpoint. JOB# [id number] CAB/NTS
[2018-09-26] MEDS ORDERED: NACL 0.9% 100 ML IV PRN (12:23)
--- NOTE | 2018-09-26 13:44 | Progress Note ---
Subjective - Reason for Consult Consult date: 09/26/18 Reason for consult: Psychiatric Follow-up - Chief Complaint Chief complaint: "I feel okay" Patient is a 37 y. o AA female who presented to the ER for generalized body swelling and SOB. Today the patient is calm and cooperative during the assessment. She reports appropriate sleep and appetite. Patient received her Invega Sustenna monthly injection on September 11, 2018. Today the patient endorsed auditory hallucinations that are asking her questions, however they are not command in type or negative. The patient stated that she is compliant with her medications. She denied SI/HI's, VH's, and delusions. Mental Status Exam - Vital signs Last Vital Signs Temp 98.4 F 09/26/18 11:34 Pulse 105 H 09/26/18 11:34 Resp 24 09/26/18 11:34 BP 119/78 09/26/18 11:34 Pulse Ox 97 09/26/18 11:34 - Exam Narrative exam: Mental Status Exam Appearance: calm, cooperative Behavior: regular eye contact Speech: regular rate and loud tone Mood: "okay" Affect: congruent to mood Thought Process: linear Thought Content: denies SI/HI's and VH's ; + AH's- asking questions Motor Activity: sitting up in the bed Cognition: A/O x3 Insight: fair Judgment: fair Assessment and Plan Impression: Hx of Schizophrenia. Today the patient is calm and cooperative during the assessment. QTc 413. Patient endorses auditory hallucinations. Recommendation/Plan: 1. Continue home medication Haldol 5 mg PO for schizophrenia, Benadryl 50 mg PO HS for EPS prevention, and Depakote 500 mg PO BID for mood. VPA ordered STAT in the AM 09/26/2018. VPA 13.2 Disposition: The [facility] for out patient psy services when discharged. Will staff with Dr. Checo Long.
[2018-09-26] MEDS: ZITHROMAX PO SCH (13:54)
[2018-09-26] MEDS: ROCEPHIN/NS 1 GM/50 ML 1 GM/50 ML BAG IV SCH (13:54)
[2018-09-26] MEDS: SODIUM CHLORIDE FLUSH SYRINGE 10 ML IV SCH ×2 (13:54→22:59)
[2018-09-26] MEDS: PROTONIX IV SCH ×3 (13:55→22:57)
[2018-09-26 14:41] LABS: INR 0.9 (0.87-1.13)
[2018-09-26 14:42] LABS: Partial Thromboplastin Time 36.7 Sec. (24.2-36.6)
--- NOTE | 2018-09-26 16:39 | Progress Note ---
Assessment and Plan Assessment and plan: Patient is a 47 yo woman with a history of Obesity, HTN and Schizophrenia who presented to the ER with bilateral leg swelling, SOB and increase in the abdominal girth and weight gain of ~86 pounds in 10 weeks. Patient denies any h/o heart disease or Liver problem. Labs were significant for creatinine of 2.2, Hb 8.5, albumin 1.4 and 3+ protein in the urine. Patient was admitted with provisional diagnosis of Nephrotic syndrome. Nephrology was consulted for further evaluation. =Nephrotic syndrome. Urine protein quantification pending. Follow BI, ANCA and complements. Renal ultrasound negative. Patient unfortunately refused kidney biopsy. =Coffee-ground emesis with Radha Mendez Tear. GI consulted H&H dropped and she refused blood transfusion today. =Acute on chronic Blood loss anemia due to above =Right lower extremity thigh pain. Doppler lower extremities bilaterally negative for DVT =Left breast swelling, unknown at present. Need outpatient Mammogram and U/S =Morbid obesity, bmi 55.2: lifestyle modification =Medical noncompliance. Patient intermittently at times refusing care. Psych consultation pending for decision making capacity. =Schizophrenia, Bipolar disorder. Continue current medications.. As above. Psych consulted =Hyperkalemia. Kayexalate. Recheck BMP in the morning. =Sepsis. Left lower lobe pneumonia. Present on admission. Continue IV antibiotics. Etiology secondary to pneumonia and UTI. =ARF, vasomotor nephropathy, poa =UTI. Continue Rocephin. Deconditioning. PT/OT evaluation. Disposition. Psychiatrist Dr. Tatum (with [facility] and [facility]) notified with updates of care [phone]. If Dr. Tatum is not available, contact coordinator of care Rao Gudelia [phone]. I left message with Dr. Tatum. I spoke with Mr. Gudelia DEGROOT tomorrow. Pre-op diagnosis: gi bleed Post-op diagnosis: same Findings: EGD: large hiatal hernia - m-w tear with pigmented area jut above g-e junction - mild gastritis - negative other Procedure: EGD pt refused blood transfusion today, ok for HIV testing for HD setup per Dr. Quinn. Disposition: continue inpatient care, needs HD dialysis setup and new placement. Unable to do Kidney Biopsy with hemoglobin of 6.7. Needs 2 units PRBC at least. History Interval history: Patient was seen and examined. Follow-up on current diagnosis of GIB. Overnight uneventful. Patient denies any chest pain, shortness breath, nausea/vomiting or severe headaches. Imaging, nursing note, chart, labs and old chart reviewed. Discussed with patient. Hospitalist Physical - Physical exam Narrative exam: GEN: chronic disable, NAD, Awake, Alert, Orientated HEENT: NCAT, EOMI, PERRL, OP Clear NECK: supple, no adenopathy, no thyromegaly, no JVD CVS/HEART: Regular tachy, normal S1S2, pulses present bilaterally CHEST/LUNGS: diminished bs bilateral, poor effort, Symmetrical chest expansion, good air entry bilaterally GI/Abdomen: soft, NTND, good bowel sounds, no guarding or rebound /Bladder: no suprapubic tenderness, no CVA or paraspinal tenderness EXT/Skin: ble edema no obvious rash MSK: FROM x 4 Neuro: CN 2-12 grossly intact, no new focal deficits Psych: calm - Constitutional Vitals: Temp Pulse Resp BP Pulse Ox 98.4 F 105 H 24 119/78 97 09/26/18 11:34 09/26/18 11:34 09/26/18 11:34 09/26/18 11:34 09/26/18 11:34 General appearance: Present: no acute distress, obese Results - Labs CBC & Chem 7: 09/26/18 07:17 09/26/18 07:17 Labs: Laboratory Last Values WBC 6.3 K/mm3 (4.5-11.0) 09/25/18 07:30 RBC 2.55 M/mm3 (3.65-5.03) L 09/25/18 07:30 Hgb 6.7 gm/dl (10.1-14.3) L 09/26/18 07:17 Hct 20.0 % (30.3-42.9) L 09/26/18 07:17 MCV 84 fl (79-97) 09/25/18 07:30 MCH 27 pg (28-32) L 09/25/18 07:30 MCHC 32 % (30-34) 09/25/18 07:30 RDW 19.5 % (13.2-15.2) H 09/25/18 07:30 Plt Count 150 K/mm3 (140-440) 09/26/18 07:17 Lymph % (Auto) 19.4 % (13.4-35.0) 09/25/18 07:30 [place] % (Auto) 12.2 % (0.0-7.3) H 09/25/18 07:30 Eos % (Auto) 0.5 % (0.0-4.3) 09/25/18 07:30 Baso % (Auto) 0.2 % (0.0-1.8) 09/25/18 07:30 Lymph # 1.2 K/mm3 (1.2-5.4) 09/25/18 07:30 [place]ole # 0.8 K/mm3 (0.0-0.8) 09/25/18 07:30 Eos # 0.0 K/mm3 (0.0-0.4) 09/25/18 07:30 Baso # 0.0 K/mm3 (0.0-0.1) 09/25/18 07:30 Seg Neutrophils % 67.7 % (40.0-70.0) 09/25/18 07:30 Seg Neutrophils # 4.3 K/mm3 (1.8-7.7) 09/25/18 07:30 PT 12.7 Sec. (12.2-14.9) 09/26/18 Unknown INR 0.90 (0.87-1.13) 09/26/18 Unknown APTT 36.7 Sec. (24.2-36.6) H 09/26/18 Unknown POC ABG pH 7.375 (7.35-7.45) 09/23/18 15:06 POC ABG pCO2 36.3 (35-45) 09/23/18 15:06 POC ABG pO2 99 (80-105) 09/23/18 15:06 POC ABG HCO3 21.2 09/23/18 15:06 POC ABG Total CO2 22 09/23/18 15:06 POC ABG O2 Sat 98 09/23/18 15:06 POC ABG Base Excess -4 09/23/18 15:06 FiO2 2 % 09/23/18 15:06 Sodium 138 mmol/L (137-145) 09/26/18 07:17 Potassium 4.1 mmol/L (3.6-5.0) 09/26/18 07:17 Chloride 105.6 mmol/L (98-107) 09/26/18 07:17 Carbon Dioxide 27 mmol/L (22-30) 09/26/18 07:17 Anion Gap 10 mmol/L 09/26/18 07:17 BUN 24 mg/dL (7-17) H 09/26/18 07:17 Creatinine 4.1 mg/dL (0.7-1.2) H 09/26/18 07:17 Estimated GFR 14 ml/min 09/26/18 07:17 BUN/Creatinine Ratio 6 % 09/26/18 07:17 Glucose 93 mg/dL (65-100) 09/26/18 07:17 Calcium 7.0 mg/dL (8.4-10.2) L 09/26/18 07:17 Phosphorus 5.00 mg/dL (2.5-4.5) H 09/25/18 07:30 Magnesium 2.60 mg/dL (1.7-2.3) H 09/17/18 15:17 Total Bilirubin < 0.20 mg/dL (0.1-1.2) 09/18/18 05:22 AST 13 units/L (5-40) 09/18/18 05:22 ALT 6 units/L (7-56) L 09/18/18 05:22 Alkaline Phosphatase 51 units/L (35-129) 09/18/18 05:22 Total Creatine Kinase 559 units/L (30-135) H 09/26/18 07:17 Troponin T 0.012 ng/mL (0.00-0.029) 09/17/18 15:17 NT-Pro-B Natriuret Pep 992.5 pg/mL (0-450) H 09/17/18 15:17 Serum Total Protein 3.4 g/dL (6.1-8.1) L 09/19/18 05:45 Total Protein 3.9 g/dL (6.3-8.2) L 09/18/18 05:22 Albumin 1.2 g/dL (3.8-4.8) L 09/19/18 05:45 Albumin/Globulin Ratio 0.6 % 09/18/18 05:22 Jhtns-8-Bqjzmzwgg 0.3 g/dL (0.2-0.3) 09/19/18 05:45 Ggujg-8-Domubqcqv 0.8 g/dL (0.5-0.9) 09/19/18 05:45 Beta Globulins 0.4 g/dL (0.2-0.5) 09/19/18 05:45 Gamma Globulins 0.5 g/dL (0.8-1.7) L 09/19/18 05:45 Abnorm Protein Band 1 see below 09/19/18 05:45 PEP Interpretation see below H 09/19/18 05:45 Amylase 53 units/L (27-131) 09/25/18 13:53 Lipase 48 units/L (13-60) 09/25/18 13:53 HCG, Qual Negative (Negative) 09/25/18 13:53 PTH Intact 46.07 pg/mL (15-65) 09/19/18 05:45 Urine Color Yellow (Yellow) 09/17/18 17:18 Urine Turbidity Cloudy (Clear) 09/17/18 17:18 Urine pH 5.0 (5.0-7.0) 09/17/18 17:18 Ur Specific [place] 1.029 (1.003-1.030) 09/17/18 17:18 Urine Protein >500 mg/dL (Negative) 09/17/18 17:18 Urine Glucose (UA) Neg mg/dL (Negative) 09/17/18 17:18 Urine Ketones Tr mg/dL (Negative) 09/17/18 17:18 Urine Blood Sm (Negative) 09/17/18 17:18 Urine Nitrite Neg (Negative) 09/17/18 17:18 Urine Bilirubin Neg (Negative) 09/17/18 17:18 Urine Urobilinogen < 2.0 mg/dL (<2.0) 09/17/18 17:18 Ur Leukocyte Esterase Neg (Negative) 09/17/18 17:18 Urine WBC (Auto) 15.0 /HPF (0.0-6.0) H 09/17/18 17:18 Urine RBC (Auto) 13.0 /HPF (0.0-6.0) 09/17/18 17:18 U Epithel Cells (Auto) 6.0 /HPF (0-13.0) 09/17/18 17:18 Urine Bacteria (Auto) 2+ /HPF (Negative) 09/17/18 17:18 Urine WBC Clumps 2+ /HPF 09/17/18 17:18 Hyaline Casts 6 /LPF 09/17/18 17:18 Urine Mucus Few /HPF 09/17/18 17:18 Urine Yeast (Budding) 2+ /HPF 09/17/18 17:18 Urine Eosinophils None seen (None Seen) 09/18/18 10:30 Urine Total Volume 475 ml 09/18/18 10:30 Urine Creatinine 97.5 mg/dL (0.1-20.0) H 09/21/18 07:00 Ur Creatinine 24 Hour 0.7 (0.8-2.8) L 09/18/18 10:30 Ur Total Protein 24 Hr 1073.50 mg/dL (2-200) H 09/18/18 10:30 Protein/Creatinin Ratio 7.26 09/21/18 07:00 Urine Sodium 53 mmol/L 09/21/18 07:00 Urine Urea Nitrogen 467 09/18/18 10:30 Ur Urea Nitrogen 24 Hr 2.22 09/18/18 10:30 Urine Total Protein 708 mg/dL (5-11.8) H 09/21/18 07:00 Urine Opiates Screen Presumptive negative 09/17/18 17:18 Urine Methadone Screen Presumptive negative 09/17/18 17:18 Ur Barbiturates Screen Presumptive negative 09/17/18 17:18 Valproic Acid 13.2 ug/mL (50-100) L 09/26/18 07:17 Ur Phencyclidine Scrn Presumptive negative 09/17/18 17:18 Ur Amphetamines Screen Presumptive negative 09/17/18 17:18 U Benzodiazepines Scrn Presumptive negative 09/17/18 17:18 Urine Cocaine Screen Presumptive negative 09/17/18 17:18 U Marijuana (THC) Screen Presumptive negative 09/17/18 17:18 Drugs of Abuse Note Disclamer 09/17/18 17:18 BI Screen Negative (Negative) 09/19/18 05:45 Proteinase 3 (PR3) Ab <1.0 AI (<1.0) 09/19/18 05:45 Myeloperoxidase Ab <1.0 AI (<1.0) 09/19/18 05:45 Complement C3 143 mg/dL (83-193) 09/19/18 05:45 Complement C4 56 mg/dL (15-57) 09/19/18 05:45 Hepatitis A IgM Ab Non-reactive (NonReactive) 09/19/18 05:45 Hep Bs Antigen Non-reactive (Negative) 09/19/18 05:45 Hep B Core IgM Ab Non-reactive (NonReactive) 09/19/18 05:45 Hepatitis C Antibody Non-reactive (NonReactive) 09/19/18 05:45 Nutrition/Malnutrition Assess - Dietary Evaluation Nutrition/Malnutrition Findings: Nutrition Notes Start: 09/24/18 15:36 Freq: Status: Active Protocol: Document 09/26/18 10:24 TW (Rec: 09/26/18 11:02 TW [email or web address]) Co-Sign 09/26/18 10:24 LP Nutrition Notes Initial or Follow up Reassessment Current Diagnosis Sepsis Other Pertinent Diagnosis Schizophrenia,Nephrotic syndrome,UTI,Pneu,Coffee ground emesis Current Diet NPO Labs/Tests BUN 24 Creat 4.1 Pertinent Medications Lasix Height 5 ft 6 in Weight 148.8 kg [place] Body Weight (kg) 59.09 BMI 52.9 Subjective/Other Information Pt not in the room at time of visit d/t endoscopy. Pt RN is not sure of the patients appetite prior to NPO status. Will continue to monitor. Burn Absent Trauma Absent #1 Nutrition Diagnosis Inadequate oral intake Diagnosis Progress(for reassessment Continues documentation) Is patient on ventilator? No Is Patient Ambulatory and/or Out of Bed Yes REE-([facility]-ambulatory/OOB) [ 2788.175 NUTR.[id number]] Kcal/Kg value to use for calculation 15 Approximate Energy Requirements Using 2232 kcal/Kg Calculation Used for Recommendations Kcal/kg Additional Notes Protein Needs: 86-107g (0.8-1g /kg 107kg adjBW) Fluid Needs: 1 ml/kcal Nutrition Intervention Change Diet Order: Advance diet when medically feasible Goal #1 Meet at least 75% of calorie and protein needs via PO intakes Goal #2 Diet advancement Anticipated Discharge Needs: Cardiac diet Follow-Up By: 09/28/18 Additional Comments Follow for diet advancement, PO intakes and need for ONS
[2018-09-26] MEDS: BENADRYL PO SCH (22:57)
[2018-09-26] MEDS: LOVENOX SUB-Q SCH (22:57)
[2018-09-26] MEDS: HALDOL PO SCH (23:00)
[2018-09-27] MEDS: TYLENOL PO PRN (05:36)
[2018-09-27] MEDS: APRESOLINE PO SCH ×3 (05:36→21:59)
--- NOTE | 2018-09-27 08:21 | Progress Note ---
Assessment and Plan 1. Acute kidney injury: Renal US was negative. Likely related Nephrotic syndrome. Patient was started on hemodialysis on 09/24/2018 due to worsening renal function, anasarca and suspected pulmonary edema. Tolerated hemodialysis well. Last dialyzed 2 days ago. Next HD today. 2. Nephrotic syndrome: Etiology includes FSGS, Minimal change, Membranous and Lupus nephritis. Complements, BI, ANCA, SPEP, GBM Ab, Hepatitis panel and HIV are negative. Kidney biospy tomorrow if patient agreeable. Patient is on Lovenox to prevent DVT. Continue Statin. 3. Volume overload: UF with HD On Lasix. 4. Hyperkalemia: Improved. 5. HTN. 6. Anemia: Present on admission. PRBC with HD today. GI bleed. Epogen with HD. 7. Medical non-compliance. Subjective Date of service: 09/27/18 Principal diagnosis: coffee-ground emesis Interval history: Patient was seen and examined at the bedside. Doing ok. Objective - Vital Signs Vital signs: Vital Signs - 12hr 09/26/18 09/27/18 23:07 04:24 Temperature 98.9 F 97.3 F L Pulse Rate 102 H 107 H Respiratory 24 24 Rate Blood Pressure 138/72 135/56 O2 Sat by Pulse 97 95 Oximetry - General Appearance General appearance: well-developed, well-nourished, appears stated age, obese, other (not in distress, Right IJ tunnel catheter) EENT: ATNC, PERRL, mucous membranes moist, hearing intact, vision intact Neck: supple Respiratory: Present: Clear to Ascultation Cardiology: regular, S1S2, no murmurs Gastrointestinal: normoactive bowel sounds, no tenderness, no distended, obese Integumentary: no rash, warm and dry Neurologic: no focal deficit, no asterixis, alert and oriented x3 Musculoskeletal: other (2+ edema of both LEs noted) - Lab 09/27/18 07:42 09/27/18 07:42 Most recent lab results Calcium 7.0 mg/dL (8.4-10.2) L 09/26/18 07:17 Phosphorus 5.00 mg/dL (2.5-4.5) H 09/25/18 07:30 Magnesium 2.60 mg/dL (1.7-2.3) H 09/17/18 15:17 Urine Creatinine 97.5 mg/dL (0.1-20.0) H 09/21/18 07:00 Ur Total Protein 24 Hr 1073.50 mg/dL (2-200) H 09/18/18 10:30 Urine Sodium 53 mmol/L 09/21/18 07:00 Urine Total Protein 708 mg/dL (5-11.8) H 09/21/18 07:00 Medications & Allergies - Medications Allergies/Adverse Reactions: Allergies No Known Allergies Allergy (Unverified 09/17/18 15:05) Home Medications: Home Medications Medication Instructions Recorded Confirmed Last Taken Type Divalproex Sodium [Depakote] 500 mg PO BID 09/17/18 09/17/18 Unknown History Haldol (Nf) 09/17/18 Unknown History Invega Sustenna 09/17/18 Unknown History diphenhydrAMINE [Benadryl CAP] 50 mg PO HS 09/17/18 09/17/18 Unknown History Active Medications: Generic Name Dose Route Start Last Admin Trade Name Freq PRN Reason Stop Dose Admin Acetaminophen 650 mg 09/18/18 02:40 09/27/18 05:36 Tylenol PO 650 mg Q4H PRN Administration Pain MILD(1-3)/Fever >100.5/MENDOZA Atorvastatin Calcium 40 mg 09/18/18 22:00 09/26/18 22:57 Lipitor PO 40 mg QHS LUZ Administration Azithromycin 500 mg 09/25/18 10:00 09/26/18 13:54 Zithromax PO Not Given QDAY LUZ Diphenhydramine HCl 50 mg 09/18/18 22:00 09/26/18 22:57 Benadryl PO 50 mg HS LUZ Administration Divalproex Sodium 500 mg 09/18/18 10:00 09/26/18 22:[address] PO 500 mg BID LUZ Administration Enoxaparin Sodium 30 mg 09/20/18 22:00 09/26/18 22:57 Lovenox SUB-Q 30 mg QDAY@2200 LUZ Administration Epoetin Luis 20,000 unit 09/26/18 12:23 Procrit SUB-Q KUSHAL PRN hemodialysis Haloperidol 5 mg 09/25/18 22:00 09/26/18 23:00 Haldol PO 5 mg HS LUZ Administration Hydralazine HCl 10 mg 09/22/18 06:28 09/22/18 12:12 Apresoline IV 10 mg Q4H PRN Administration systolic b/p >165 Hydralazine HCl 50 mg 09/22/18 14:00 09/27/18 05:36 Apresoline PO 50 mg Q8HR LUZ Administration Hydromorphone HCl 0.5 mg 09/18/18 02:40 Dilaudid IV Q3H PRN Pain , Severe (7-10) Furosemide 100 mg/ Sodium 100 mls @ 10 mls/hr 09/23/18 14:00 Chloride IV DIRECT LUZ 10 MG/HR Ceftriaxone Sodium 1 gm in 50 mls @ 100 mls/hr 09/25/18 10:00 09/26/18 13:54 Rocephin/Ns 1 Gm/50 Ml IV Not Given Q24HR LUZ Protocol Sodium Chloride 1,000 mls @ 50 mls/hr 09/26/18 08:30 09/26/18 09:04 Nacl 0.9% 1000 Ml IV 50 mls/hr DIRECT LUZ Administration Sodium Chloride 100 mls @ 999 mls/hr 09/26/18 12:23 Nacl 0.9% IV KUSHAL PRN Hypotension Ondansetron HCl 4 mg 09/18/18 02:40 09/23/18 08:45 Zofran IV 4 mg Q8H PRN Administration Nausea And Vomiting Oxycodone/Acetaminophen 1 tab 09/18/18 02:40 09/21/18 22:11 Percocet 5/325 PO 1 tab Q6H PRN Administration Pain, Moderate (4-6) Pantoprazole Sodium 40 mg 09/24/18 12:00 09/26/18 22:57 Protonix IV 40 mg BID LUZ Administration Sodium Chloride 10 ml 09/18/18 10:00 09/26/18 22:59 Sodium Chloride Flush Syringe 10 Ml IV 10 ml BID LUZ Administration Sodium Chloride 10 ml 09/18/18 02:40 Sodium Chloride Flush Syringe 10 Ml IV PRN PRN LINE FLUSH
[2018-09-27 08:51] LABS: Basophils % (Auto) 0.3 % (0.0-1.8); Eosinophils % (Auto) 0.9 % (0.0-4.3); Lymphocytes # (Auto) 1.3 K/mm3 (1.2-5.4); Lymphocytes % (Auto) 24.7 % (13.4-35.0); Mean Corpuscular HGB Conc 33 % (30-34); Mean Corpuscular Volume 84 fl (79-97); Monocytes # (Auto) 0.8 K/mm3 (0.0-0.8); Monocytes % (Auto) 15.8 % (0.0-7.3); Platelet Count 130 K/mm3 (140-440); Red Blood Count 2.16 M/mm3 (3.65-5.03); Red Cell Distribution Width 18.9 % (13.2-15.2)
[2018-09-27] MEDS ORDERED: VERSED IV NR (08:53)
[2018-09-27] MEDS ORDERED: SUBLIMAZE IV NR (08:53)
[2018-09-27 08:54] LABS: Hematocrit 18.1 % (30.3-42.9)
--- NOTE | 2018-09-27 09:02 | XRay Report ---
ROUTINE CHEST, TWO VIEWS: HISTORY: Followup on pneumonia. Mild cardiomegaly, mild pulmonary venous congestion and small pleural effusions are identified. These findings appear slightly increased since 09/23/18 exam. Focal air space opacity in the lingula has resolved. No evidence for pneumothorax. Dual-lumen right IJ venous catheter terminates in the mid SVC. IMPRESSION: Mild volume overload. No evidence for pneumonia.
[2018-09-27 09:33] LABS: Calcium 7.1 mg/dL (8.4-10.2)
--- NOTE | 2018-09-27 09:51 | Progress Note ---
Assessment and Plan Acute hypoxemic respiratory failure Sepsis secondary to left lower lobe PNA Extreme obesity Nephrotic syndrome Enterococcus UTI Renal failure on HD Nephrotic syndrome Anemia - continue supplemental oxygen to keep O2 sat's > 90% - complete antibiotic course -nocturnal BIPAP and prn during the day - bronchodilators per protocol - weight loss counseled - now dialysis dependent; continue HD/UF per nephrology prescription - no active GI bleeding and was related to Radha Mendez tear - VTE w/up negative -influenza and pneumonia vaccination per protocol -out patient sleep study on discharge -weight loss and lifestyle modifications discussed. She appears to have a chronic psychosis whic is a barrier to her comprehension of the severity of her illness. - continue other care per attending / other consultants Subjective Date of service: 09/27/18 Principal diagnosis: coffee-ground emesis Interval history: follow up: Acute hypoxic respiratory failure: Abnormal CXR, Morbid obesity with probable STEFF Seen and examined. Vitals, labs, medications, chart and imaging reviewed. s/p EGD yesterday: large hiatal hernia - m-w tear with pigmented area jut above g-e junction - mild gastritis - negative other . Objective Vital Signs - 12hr 09/26/18 09/27/18 23:07 04:24 Temperature 98.9 F 97.3 F L Pulse Rate 102 H 107 H Respiratory 24 24 Rate Blood Pressure 138/72 135/56 O2 Sat by Pulse 97 95 Oximetry Constitutional: no acute distress, alert Eyes: non-icteric ENT: oropharynx moist Neck: supple, no JVD Ascultation: Bilateral: diminished breath sounds Cardiovascular: regular rate and rhythm Gastrointestinal: normoactive bowel sounds, soft, non-tender Integumentary: normal Extremities: no cyanosis, no edema Neurologic: non-focal exam, pupils equal and round, CN II-XII normal Psychiatric: depressed CBC and BMP: 10/06/18 06:22 10/05/18 06:50 ABG, PT/INR, D-dimer: ABG POC ABG pH 7.375 (7.35-7.45) 09/23/18 15:06 POC ABG pCO2 36.3 (35-45) 09/23/18 15:06 POC ABG pO2 99 (80-105) 09/23/18 15:06 POC ABG HCO3 21.2 09/23/18 15:06 POC ABG Total CO2 22 09/23/18 15:06 POC ABG O2 Sat 98 09/23/18 15:06 PT/INR, D-dimer PT 12.7 Sec. (12.2-14.9) 09/26/18 Unknown INR 0.90 (0.87-1.13) 09/26/18 Unknown Abnormal lab findings: Abnormal Labs 09/17/18 09/17/18 09/17/18 15:17 15:17 15:17 WBC RBC 3.34 L Hgb 9.1 L Hct 27.9 L MCH 27 L RDW 20.5 H Plt Count Lymph % (Auto) [place] % (Auto) 8.8 H APTT 22.2 L Potassium Chloride 107.7 H BUN 37 H Creatinine 2.3 H Glucose Calcium 7.4 L Phosphorus Magnesium 2.60 H ALT Total Creatine Kinase NT-Pro-B Natriuret Pep 992.5 H Serum Total Protein Total Protein 4.1 L Albumin 1.3 L Gamma Globulins PEP Interpretation Urine WBC (Auto) Urine Creatinine Ur Creatinine 24 Hour Ur Total Protein 24 Hr Urine Total Protein Valproic Acid 09/17/18 09/18/18 09/18/18 17:18 05:22 05:22 WBC 4.4 L RBC 3.06 L Hgb 8.5 L Hct 25.5 L MCH RDW 20.0 H Plt Count Lymph % (Auto) 36.5 H [place] % (Auto) 12.3 H APTT Potassium Chloride 107.2 H BUN 37 H Creatinine 2.2 H Glucose Calcium 7.4 L Phosphorus Magnesium ALT 6 L Total Creatine Kinase NT-Pro-B Natriuret Pep Serum Total Protein Total Protein 3.9 L Albumin 1.4 L Gamma Globulins PEP Interpretation Urine WBC (Auto) 15.0 H Urine Creatinine Ur Creatinine 24 Hour Ur Total Protein 24 Hr Urine Total Protein Valproic Acid 09/18/18 09/19/18 09/19/18 10:30 05:45 05:45 WBC RBC Hgb Hct MCH RDW Plt Count Lymph % (Auto) [place] % (Auto) APTT Potassium Chloride BUN 37 H Creatinine 2.1 H Glucose Calcium 7.3 L Phosphorus Magnesium ALT Total Creatine Kinase NT-Pro-B Natriuret Pep Serum Total Protein 3.4 L Total Protein Albumin 1.2 L Gamma Globulins 0.5 L PEP Interpretation see below H Urine WBC (Auto) Urine Creatinine 147.5 H Ur Creatinine 24 Hour 0.7 L Ur Total Protein 24 Hr 1073.50 H Urine Total Protein 226 H Valproic Acid 09/20/18 09/20/18 09/21/18 04:56 15:15 06:13 WBC RBC 2.84 L Hgb 7.8 L Hct 24.1 L MCH 27 L RDW 19.8 H Plt Count Lymph % (Auto) [place] % (Auto) 12.9 H APTT Potassium 5.4 H 5.5 H Chloride 108.2 H BUN 38 H Creatinine 2.4 H Glucose Calcium 7.2 L Phosphorus Magnesium ALT Total Creatine Kinase NT-Pro-B Natriuret Pep Serum Total Protein Total Protein Albumin Gamma Globulins PEP Interpretation Urine WBC (Auto) Urine Creatinine Ur Creatinine 24 Hour Ur Total Protein 24 Hr Urine Total Protein Valproic Acid 09/21/18 09/21/18 09/22/18 06:13 07:00 10:12 WBC RBC Hgb Hct MCH RDW Plt Count Lymph % (Auto) [place] % (Auto) APTT Potassium 5.2 H Chloride 108.2 H 111.5 H BUN 39 H 40 H Creatinine 2.7 H 3.1 H Glucose Calcium 7.3 L 7.1 L Phosphorus Magnesium ALT Total Creatine Kinase NT-Pro-B Natriuret Pep Serum Total Protein Total Protein Albumin Gamma Globulins PEP Interpretation Urine WBC (Auto) Urine Creatinine 97.5 H Ur Creatinine 24 Hour Ur Total Protein 24 Hr Urine Total Protein 708 H Valproic Acid 09/23/18 09/25/18 09/25/18 04:40 07:30 07:30 WBC RBC 2.55 L Hgb 6.9 L Hct 21.5 L MCH 27 L RDW 19.5 H Plt Count Lymph % (Auto) [place] % (Auto) 12.2 H APTT Potassium Chloride 109.1 H BUN 42 H 33 H Creatinine 3.8 H 4.4 H Glucose 102 H Calcium 7.2 L 7.3 L Phosphorus 5.00 H Magnesium ALT Total Creatine Kinase NT-Pro-B Natriuret Pep Serum Total Protein Total Protein Albumin Gamma Globulins PEP Interpretation Urine WBC (Auto) Urine Creatinine Ur Creatinine 24 Hour Ur Total Protein 24 Hr Urine Total Protein Valproic Acid 09/26/18 09/26/18 09/26/18 07:17 07:17 07:17 WBC RBC Hgb 6.7 L Hct 20.0 L MCH RDW Plt Count Lymph % (Auto) [place] % (Auto) APTT Potassium Chloride BUN 24 H Creatinine 4.1 H Glucose Calcium 7.0 L Phosphorus Magnesium ALT Total Creatine Kinase 559 H NT-Pro-B Natriuret Pep Serum Total Protein Total Protein Albumin Gamma Globulins PEP Interpretation Urine WBC (Auto) Urine Creatinine Ur Creatinine 24 Hour Ur Total Protein 24 Hr Urine Total Protein Valproic Acid 13.2 L 09/26/18 09/27/18 09/27/18 Unknown 07:42 07:42 WBC RBC 2.16 L Hgb 6.0 L Hct 18.1 L* MCH RDW 18.9 H Plt Count 130 L Lymph % (Auto) [place] % (Auto) 15.8 H APTT 36.7 H Potassium Chloride 108.4 H BUN 26 H Creatinine 4.8 H Glucose Calcium 7.1 L Phosphorus 4.60 H Magnesium ALT Total Creatine Kinase NT-Pro-B Natriuret Pep Serum Total Protein Total Protein Albumin Gamma Globulins PEP Interpretation Urine WBC (Auto) Urine Creatinine Ur Creatinine 24 Hour Ur Total Protein 24 Hr Urine Total Protein Valproic Acid
[2018-09-27] MEDS ORDERED: NACL 0.9% 500 ML 500 ML IV NR (09:57)
--- NOTE | 2018-09-27 10:00 | Progress Note ---
Assessment and Plan Assessment and plan: Patient is a 47 yo woman with a history of Obesity, HTN and Schizophrenia who presented to the ER with bilateral leg swelling, SOB and increase in the abdominal girth and weight gain of ~86 pounds in 10 weeks. Patient denies any h/o heart disease or Liver problem. Labs were significant for creatinine of 2.2, Hb 8.5, albumin 1.4 and 3+ protein in the urine. Patient was admitted with provisional diagnosis of Nephrotic syndrome. Nephrology was consulted for further evaluation. =Nephrotic syndrome. Urine protein quantification pending. Follow BI, ANCA and complements. Renal ultrasound negative. Patient unfortunately refused kidney biopsy. =Coffee-ground emesis with Radha Mendez Tear. GI consulted H&H dropped and she refused blood transfusion today. =Acute on chronic Blood loss anemia due to above =Right lower extremity thigh pain. Doppler lower extremities bilaterally negative for DVT =Left breast swelling, unknown at present. Need outpatient Mammogram and U/S =Morbid obesity, bmi 55.2: lifestyle modification =Medical noncompliance. Patient intermittently at times refusing care. Psych consultation pending for decision making capacity. =Schizophrenia, Bipolar disorder. Continue current medications.. As above. Psych consulted =Hyperkalemia. Kayexalate. Recheck BMP in the morning. =Sepsis. Left lower lobe pneumonia. Present on admission. Continue IV antibiotics. Etiology secondary to pneumonia and UTI. =ARF, vasomotor nephropathy, poa =UTI. Continue Rocephin. Deconditioning. PT/OT evaluation. Disposition. Psychiatrist Dr. Tatum (with [place] [facility] and [facility]) notified with updates of care [phone]. If Dr. Tatum is not available, contact coordinator of care Rao Gudelia [phone]. I left message with Dr. Tatum. I spoke with Mr. Gudelia DEGROOT tomorrow. Pre-op diagnosis: gi bleed Post-op diagnosis: same Findings: EGD: large hiatal hernia - m-w tear with pigmented area jut above g-e junction - mild gastritis - negative other Procedure: EGD pt refused blood transfusion today, ok for HIV testing for HD setup per Dr. Quinn. Disposition: continue inpatient care, needs HD dialysis setup and new placement. Unable to do Kidney Biopsy with hemoglobin of 6.7. Needs 2 units PRBC at least. Patient has agreed for blood transfusion, will need 3 units to do Kidney biopsy, Hgb needs to be close to 9.0 for that surgery/procedure. She refused hemodialysis yesterday but agreeable today, hopefully blood transfusion during HD History Interval history: Patient was seen and examined. Follow-up on current diagnosis of GIB. Overnight uneventful. Patient denies any chest pain, shortness breath, nausea/vomiting or severe headaches. Imaging, nursing note, chart, labs and old chart reviewed. Discussed with patient. Hospitalist Physical - Physical exam Narrative exam: GEN: chronic disable, NAD, Awake, Alert, Orientated HEENT: NCAT, EOMI, PERRL, OP Clear NECK: supple, no adenopathy, no thyromegaly, no JVD CVS/HEART: Regular tachy, normal S1S2, pulses present bilaterally CHEST/LUNGS: diminished bs bilateral, poor effort, Symmetrical chest expansion, good air entry bilaterally GI/Abdomen: soft, NTND, good bowel sounds, no guarding or rebound /Bladder: no suprapubic tenderness, no CVA or paraspinal tenderness EXT/Skin: ble edema no obvious rash MSK: FROM x 4 Neuro: CN 2-12 grossly intact, no new focal deficits Psych: calm - Constitutional Vitals: Temp Pulse Resp BP Pulse Ox 97.3 F L 107 H 24 135/56 95 09/27/18 04:24 09/27/18 04:24 09/27/18 04:24 09/27/18 04:24 09/27/18 04:24 General appearance: Present: no acute distress, obese Results - Labs CBC & Chem 7: 09/27/18 07:42 09/27/18 07:42 Labs: Laboratory Last Values WBC 5.3 K/mm3 (4.5-11.0) 09/27/18 07:42 RBC 2.16 M/mm3 (3.65-5.03) L 09/27/18 07:42 Hgb 6.0 gm/dl (10.1-14.3) L 09/27/18 07:42 Hct 18.1 % (30.3-42.9) L* 09/27/18 07:42 MCV 84 fl (79-97) 09/27/18 07:42 MCH 28 pg (28-32) 09/27/18 07:42 MCHC 33 % (30-34) 09/27/18 07:42 RDW 18.9 % (13.2-15.2) H 09/27/18 07:42 Plt Count 130 K/mm3 (140-440) L 09/27/18 07:42 Lymph % (Auto) 24.7 % (13.4-35.0) 09/27/18 07:42 [place] % (Auto) 15.8 % (0.0-7.3) H 09/27/18 07:42 Eos % (Auto) 0.9 % (0.0-4.3) 09/27/18 07:42 Baso % (Auto) 0.3 % (0.0-1.8) 09/27/18 07:42 Lymph # 1.3 K/mm3 (1.2-5.4) 09/27/18 07:42 [place] # 0.8 K/mm3 (0.0-0.8) 09/27/18 07:42 Eos # 0.0 K/mm3 (0.0-0.4) 09/27/18 07:42 Baso # 0.0 K/mm3 (0.0-0.1) 09/27/18 07:42 Seg Neutrophils % 58.3 % (40.0-70.0) 09/27/18 07:42 Seg Neutrophils # 3.1 K/mm3 (1.8-7.7) 09/27/18 07:42 PT 12.7 Sec. (12.2-14.9) 09/26/18 Unknown INR 0.90 (0.87-1.13) 09/26/18 Unknown APTT 36.7 Sec. (24.2-36.6) H 09/26/18 Unknown POC ABG pH 7.375 (7.35-7.45) 09/23/18 15:06 POC ABG pCO2 36.3 (35-45) 09/23/18 15:06 POC ABG pO2 99 (80-105) 09/23/18 15:06 POC ABG HCO3 21.2 09/23/18 15:06 POC ABG Total CO2 22 09/23/18 15:06 POC ABG O2 Sat 98 09/23/18 15:06 POC ABG Base Excess -4 09/23/18 15:06 FiO2 2 % 09/23/18 15:06 Sodium 143 mmol/L (137-145) 09/27/18 07:42 Potassium 4.5 mmol/L (3.6-5.0) 09/27/18 07:42 Chloride 108.4 mmol/L (98-107) H 09/27/18 07:42 Carbon Dioxide 28 mmol/L (22-30) 09/27/18 07:42 Anion Gap 11 mmol/L 09/27/18 07:42 BUN 26 mg/dL (7-17) H 09/27/18 07:42 Creatinine 4.8 mg/dL (0.7-1.2) H 09/27/18 07:42 Estimated GFR 12 ml/min 09/27/18 07:42 BUN/Creatinine Ratio 5 % 09/27/18 07:42 Glucose 81 mg/dL (65-100) 09/27/18 07:42 Calcium 7.1 mg/dL (8.4-10.2) L 09/27/18 07:42 Phosphorus 4.60 mg/dL (2.5-4.5) H 09/27/18 07:42 Magnesium 2.60 mg/dL (1.7-2.3) H 09/17/18 15:17 Total Bilirubin < 0.20 mg/dL (0.1-1.2) 09/18/18 05:22 AST 13 units/L (5-40) 09/18/18 05:22 ALT 6 units/L (7-56) L 09/18/18 05:22 Alkaline Phosphatase 51 units/L (35-129) 09/18/18 05:22 Total Creatine Kinase 559 units/L (30-135) H 09/26/18 07:17 Troponin T 0.012 ng/mL (0.00-0.029) 09/17/18 15:17 NT-Pro-B Natriuret Pep 992.5 pg/mL (0-450) H 09/17/18 15:17 Serum Total Protein 3.4 g/dL (6.1-8.1) L 09/19/18 05:45 Total Protein 3.9 g/dL (6.3-8.2) L 09/18/18 05:22 Albumin 1.2 g/dL (3.8-4.8) L 09/19/18 05:45 Albumin/Globulin Ratio 0.6 % 09/18/18 05:22 Foiyj-5-Uxgblmmzq 0.3 g/dL (0.2-0.3) 09/19/18 05:45 Qsfsz-4-Rktwzxszp 0.8 g/dL (0.5-0.9) 09/19/18 05:45 Beta Globulins 0.4 g/dL (0.2-0.5) 09/19/18 05:45 Gamma Globulins 0.5 g/dL (0.8-1.7) L 09/19/18 05:45 Abnorm Protein Band 1 see below 09/19/18 05:45 PEP Interpretation see below H 09/19/18 05:45 Amylase 53 units/L (27-131) 09/25/18 13:53 Lipase 48 units/L (13-60) 09/25/18 13:53 HCG, Qual Negative (Negative) 09/25/18 13:53 PTH Intact 46.07 pg/mL (15-65) 09/19/18 05:45 Urine Color Yellow (Yellow) 09/17/18 17:18 Urine Turbidity Cloudy (Clear) 09/17/18 17:18 Urine pH 5.0 (5.0-7.0) 09/17/18 17:18 Ur Specific [place] 1.029 (1.003-1.030) 09/17/18 17:18 Urine Protein >500 mg/dL (Negative) 09/17/18 17:18 Urine Glucose (UA) Neg mg/dL (Negative) 09/17/18 17:18 Urine Ketones Tr mg/dL (Negative) 09/17/18 17:18 Urine Blood Sm (Negative) 09/17/18 17:18 Urine Nitrite Neg (Negative) 09/17/18 17:18 Urine Bilirubin Neg (Negative) 09/17/18 17:18 Urine Urobilinogen < 2.0 mg/dL (<2.0) 09/17/18 17:18 Ur Leukocyte Esterase Neg (Negative) 09/17/18 17:18 Urine WBC (Auto) 15.0 /HPF (0.0-6.0) H 09/17/18 17:18 Urine RBC (Auto) 13.0 /HPF (0.0-6.0) 09/17/18 17:18 U Epithel Cells (Auto) 6.0 /HPF (0-13.0) 09/17/18 17:18 Urine Bacteria (Auto) 2+ /HPF (Negative) 09/17/18 17:18 Urine WBC Clumps 2+ /HPF 09/17/18 17:18 Hyaline Casts 6 /LPF 09/17/18 17:18 Urine Mucus Few /HPF 09/17/18 17:18 Urine Yeast (Budding) 2+ /HPF 09/17/18 17:18 Urine Eosinophils None seen (None Seen) 09/18/18 10:30 Urine Total Volume 475 ml 09/18/18 10:30 Urine Creatinine 97.5 mg/dL (0.1-20.0) H 09/21/18 07:00 Ur Creatinine 24 Hour 0.7 (0.8-2.8) L 09/18/18 10:30 Ur Total Protein 24 Hr 1073.50 mg/dL (2-200) H 09/18/18 10:30 Protein/Creatinin Ratio 7.26 09/21/18 07:00 Urine Sodium 53 mmol/L 09/21/18 07:00 Urine Urea Nitrogen 467 09/18/18 10:30 Ur Urea Nitrogen 24 Hr 2.22 09/18/18 10:30 Urine Total Protein 708 mg/dL (5-11.8) H 09/21/18 07:00 Urine Opiates Screen Presumptive negative 09/17/18 17:18 Urine Methadone Screen Presumptive negative 09/17/18 17:18 Ur Barbiturates Screen Presumptive negative 09/17/18 17:18 Valproic Acid 13.2 ug/mL (50-100) L 09/26/18 07:17 Ur Phencyclidine Scrn Presumptive negative 09/17/18 17:18 Ur Amphetamines Screen Presumptive negative 09/17/18 17:18 U Benzodiazepines Scrn Presumptive negative 09/17/18 17:18 Urine Cocaine Screen Presumptive negative 09/17/18 17:18 U Marijuana (THC) Screen Presumptive negative 09/17/18 17:18 Drugs of Abuse Note Disclamer 09/17/18 17:18 BI Screen Negative (Negative) 09/19/18 05:45 Proteinase 3 (PR3) Ab <1.0 AI (<1.0) 09/19/18 05:45 Myeloperoxidase Ab <1.0 AI (<1.0) 09/19/18 05:45 Glomerular Base Mem IgG See scanned result 09/19/18 05:45 Complement C3 143 mg/dL (83-193) 09/19/18 05:45 Complement C4 56 mg/dL (15-57) 09/19/18 05:45 Hepatitis A IgM Ab Non-reactive (NonReactive) 09/19/18 05:45 Hep Bs Antigen Non-reactive (Negative) 09/19/18 05:45 Hep B Core IgM Ab Non-reactive (NonReactive) 09/19/18 05:45 Hepatitis C Antibody Non-reactive (NonReactive) 09/19/18 05:45 HIV 1&2 Antibody Rapid Non react (Non React) 09/27/18 07:42 HIV P24 Antigen Non react (Non React) 09/27/18 07:42 Nutrition/Malnutrition Assess - Dietary Evaluation Nutrition/Malnutrition Findings: Nutrition Notes Start: 09/24/18 15:36 Freq: Status: Active Protocol: Document 09/26/18 10:24 TW (Rec: 09/26/18 11:02 TW [email or web address]) Co-Sign 09/26/18 10:24 LP Nutrition Notes Initial or Follow up Reassessment Current Diagnosis Sepsis Other Pertinent Diagnosis Schizophrenia,Nephrotic syndrome,UTI,Pneu,Coffee ground emesis Current Diet NPO Labs/Tests BUN 24 Creat 4.1 Pertinent Medications Lasix Height 5 ft 6 in Weight 148.8 kg [place] Body Weight (kg) 59.09 BMI 52.9 Subjective/Other Information Pt not in the room at time of visit d/t endoscopy. Pt RN is not sure of the patients appetite prior to NPO status. Will continue to monitor. Burn Absent Trauma Absent #1 Nutrition Diagnosis Inadequate oral intake Diagnosis Progress(for reassessment Continues documentation) Is patient on ventilator? No Is Patient Ambulatory and/or Out of Bed Yes REE-([place]-St. Jeor-ambulatory/OOB) [ 2788.175 NUTR.[id number]] Kcal/Kg value to use for calculation 15 Approximate Energy Requirements Using 2232 kcal/Kg Calculation Used for Recommendations Kcal/kg Additional Notes Protein Needs: 86-107g (0.8-1g /kg 107kg adjBW) Fluid Needs: 1 ml/kcal Nutrition Intervention Change Diet Order: Advance diet when medically feasible Goal #1 Meet at least 75% of calorie and protein needs via PO intakes Goal #2 Diet advancement Anticipated Discharge Needs: Cardiac diet Follow-Up By: 09/28/18 Additional Comments Follow for diet advancement, PO intakes and need for ONS
[2018-09-27] MEDS ORDERED: NACL 0.9% 100 ML IV PRN (10:05)
--- NOTE | 2018-09-27 11:17 | Gastroenterology Progress Note ---
Assessment and Plan 1.GI bleed 2.coffee-ground emesis -H/H 6.0/18.1-trending down (anemia noted on admission; unknown baseline)- patient currently refusing blood transfusion per hospitalist -continue to monitor H/H and transfuse as needed for HGB >8 -no active signs of bleeding overnight or this am -s/p EGD yesterday that showed a large hiatal hernia, mild gastritis, and M-W tear with pigmented area just above GE junction -continue PPI and supportive care -no further GI recommendations at this time -will sign off, please call back if needed or if bleeding reoccurs 2.acute kidney injury/hyperkalemia 3.nephrotic syndrome 4.volume overload 5.HTN 6.anemia 7.Schizophrenia/bipolar 8.sepsis-pneumonia/UTI 9.medical noncompliance Subjective Date of service: 09/27/18 Principal diagnosis: coffee-ground emesis Interval history: No active signs of bleeding overnight or this am per nursing. Objective - Constitutional Vitals: Temp Pulse Resp BP Pulse Ox 97.3 F L 107 H 24 135/56 95 09/27/18 04:24 09/27/18 04:24 09/27/18 04:24 09/27/18 04:24 09/27/18 04:24 General appearance: no acute distress - Respiratory Respiratory: bilateral: diminished - Cardiovascular Rhythm: other (tachycardia) - Gastrointestinal General gastrointestinal: Present: soft, non-distended, normal bowel sounds, other (obese) - Labs CBC & Chem 7: 09/27/18 07:42 09/27/18 07:42 Labs: Laboratory Results - last 24 hr 09/19/18 09/26/18 09/26/18 05:45 07:17 Unknown WBC RBC Hgb Hct MCV MCH MCHC RDW Plt Count 150 Lymph % (Auto) Kay % (Auto) Eos % (Auto) Baso % (Auto) Lymph # Kay # Eos # Baso # Seg Neutrophils % Seg Neutrophils # PT 12.7 INR 0.90 APTT 36.7 H Sodium Potassium Chloride Carbon Dioxide Anion Gap BUN Creatinine Estimated GFR BUN/Creatinine Ratio Glucose Calcium Phosphorus Glomerular Base Mem IgG See scanned result HIV 1&2 Antibody Rapid HIV P24 Antigen Blood Type Crossmatch 09/27/18 09/27/18 09/27/18 07:42 07:42 10:43 WBC 5.3 RBC 2.16 L Hgb 6.0 L Hct 18.1 L* MCV 84 MCH 28 MCHC 33 RDW 18.9 H Plt Count 130 L Lymph % (Auto) 24.7 Kay % (Auto) 15.8 H Eos % (Auto) 0.9 Baso % (Auto) 0.3 Lymph # 1.3 Kay # 0.8 Eos # 0.0 Baso # 0.0 Seg Neutrophils % 58.3 Seg Neutrophils # 3.1 PT INR APTT Sodium 143 Potassium 4.5 Chloride 108.4 H Carbon Dioxide 28 Anion Gap 11 BUN 26 H Creatinine 4.8 H Estimated GFR 12 BUN/Creatinine Ratio 5 Glucose 81 Calcium 7.1 L Phosphorus 4.60 H Glomerular Base Mem IgG HIV 1&2 Antibody Rapid Non react HIV P24 Antigen Non react Blood Type O POSITIVE Crossmatch See Detail
[2018-09-27] MEDS: PERCOCET 5/325 PO PRN (12:14)
[2018-09-27] MEDS: PROCRIT SUB-Q PRN (12:16)
--- NOTE | 2018-09-27 14:06 | Progress Note ---
Subjective - Reason for Consult Consult date: 09/27/18 Reason for consult: Psychiatry Follow-up - Chief Complaint Chief complaint: "Joaquim" Patient is a 37 y. o AA female who presented to the ER for generalized body swelling and SOB. Today the patient is calm and cooperative during the assessment. She stated that look forward to being discharged soon. She stated that [facility] for outpatient psy services. She denies SI/HI's and AVH's. She denies any side effects of her medications. Mental Status Exam - Vital signs Last Vital Signs Temp 98.3 F 09/27/18 13:40 Pulse 83 09/27/18 13:53 Resp 18 09/27/18 13:40 BP 123/70 09/27/18 13:53 Pulse Ox 95 09/27/18 04:24 - Exam Narrative exam: MSE: Appearance: calm, cooperative Behavior: regular eye contact Speech: regular rate and loud tone Mood: "okay" Affect: congruent to mood Thought Process: more organized Thought Content: denies SI/HI's and AVH's Motor Activity: sitting up in the bed Cognition: A/O x3 Insight: appropriate Judgment: appropriate Assessment and Plan Impression: Hx of Schizophrenia. Today the patient is calm and cooperative during the assessment. Recommendation/Plan: Continue home medication Haldol 5 mg PO for schizophrenia, Benadryl 50 mg PO HS for EPS prevention, and Depakote 500 mg PO BID for mood. Psy ign off. Dispo: The patient can follow up with [facility] ([facility]) for out pat ient psy services when discharged. Will staff with Dr Martin.
[2018-09-27] MEDS: ROCEPHIN/NS 1 GM/50 ML 1 GM/50 ML BAG IV SCH (18:07)
[2018-09-27] MEDS: PROTONIX IV SCH (18:07)
[2018-09-27] MEDS: ZITHROMAX PO SCH (18:17)
[2018-09-27] MEDS: LOVENOX SUB-Q SCH (21:59)
[2018-09-27] MEDS: HALDOL PO SCH (21:59)
[2018-09-27] MEDS: BENADRYL PO SCH (21:59)
[2018-09-27] MEDS: SODIUM CHLORIDE FLUSH SYRINGE 10 ML IV SCH (22:01)
[2018-09-28] MEDS ORDERED: VANCOMYCIN/NS 1 GM/250 ML 1 GM/250 ML BAG IV ONE (04:47)
[2018-09-28] MEDS: APRESOLINE PO SCH ×3 (05:17→22:47)
[2018-09-28 05:46] LABS: Hematocrit 27.2 % (30.3-42.9); Hemoglobin 8.9 gm/dl (10.1-14.3); Mean Corpuscular HGB Conc 33 % (30-34); Mean Corpuscular Volume 83 fl (79-97); Platelet Count 130 K/mm3 (140-440); Red Blood Count 3.29 M/mm3 (3.65-5.03); Red Cell Distribution Width 19.3 % (13.2-15.2)
--- NOTE | 2018-09-28 07:53 | Progress Note ---
Assessment and Plan 1. Acute kidney injury: Renal US was negative. Likely related Nephrotic syndrome. Patient was started on hemodialysis on 09/24/2018 due to worsening renal function, anasarca and suspected pulmonary edema. Tolerated hemodialysis well. Last dialyzed yesterday. Patient refused HD / Isolated UF today. Next HD tomorrow. 2. Nephrotic syndrome: Etiology includes FSGS, Minimal change, Membranous and Lupus nephritis. Complements, BI, ANCA, SPEP, GBM Ab, Hepatitis panel and HIV are negative. Patient refused Kidney biospy several times. Patient is on Lovenox to prevent DVT. Continue Statin. 3. Volume overload: UF with HD. PO Lasix. 4. Hyperkalemia: Improved. 5. HTN. 6. Anemia: Present on admission. S/p PRBC. Epogen with HD. 7. Schizophrenia. 8. Medical non-compliance. Subjective Date of service: 09/28/18 Principal diagnosis: coffee-ground emesis Interval history: Patient was seen and examined at the bedside. Doing ok. Objective - Vital Signs Vital signs: Vital Signs - 12hr 09/27/18 09/27/18 09/27/18 20:12 21:59 23:38 Temperature 97.9 F Pulse Rate 80 101 H Respiratory 20 Rate Blood Pressure 148/85 O2 Sat by Pulse 97 97 Oximetry 09/28/18 09/28/18 01:34 05:17 Temperature Pulse Rate 88 Respiratory 20 Rate Blood Pressure O2 Sat by Pulse Oximetry - General Appearance General appearance: well-developed, well-nourished, appears stated age, obese, other (not in distress, right IJ tunnel catheter) EENT: ATNC, PERRL, mucous membranes moist, hearing intact, vision intact Neck: supple Respiratory: Present: Clear to Ascultation Cardiology: regular, S1S2, no murmurs Gastrointestinal: normoactive bowel sounds, no tenderness, no distended Integumentary: no rash, warm and dry Neurologic: no focal deficit, no asterixis, alert and oriented x3 Musculoskeletal: other (2+ edema of both LEs noted) - Lab 09/28/18 04:43 09/27/18 07:42 Most recent lab results Calcium 7.1 mg/dL (8.4-10.2) L 09/27/18 07:42 Phosphorus 4.60 mg/dL (2.5-4.5) H 09/27/18 07:42 Magnesium 2.60 mg/dL (1.7-2.3) H 09/17/18 15:17 Urine Creatinine 97.5 mg/dL (0.1-20.0) H 09/21/18 07:00 Ur Total Protein 24 Hr 1073.50 mg/dL (2-200) H 09/18/18 10:30 Urine Sodium 53 mmol/L 09/21/18 07:00 Urine Total Protein 708 mg/dL (5-11.8) H 09/21/18 07:00 Medications & Allergies - Medications Allergies/Adverse Reactions: Allergies No Known Allergies Allergy (Unverified 09/17/18 15:05) Home Medications: Home Medications Medication Instructions Recorded Confirmed Last Taken Type Divalproex Sodium [Depakote] 500 mg PO BID 09/17/18 09/17/18 Unknown History Haldol (Nf) 09/17/18 Unknown History Invega Sustenna 09/17/18 Unknown History diphenhydrAMINE [Benadryl CAP] 50 mg PO HS 09/17/18 09/17/18 Unknown History Active Medications: Generic Name Dose Route Start Last Admin Trade Name Freq PRN Reason Stop Dose Admin Acetaminophen 650 mg 09/18/18 02:40 09/27/18 05:36 Tylenol PO 650 mg Q4H PRN Administration Pain MILD(1-3)/Fever >100.5/MENDOZA Atorvastatin Calcium 40 mg 09/18/18 22:00 09/27/18 22:00 Lipitor PO 40 mg QHS LUZ Administration Diphenhydramine HCl 50 mg 09/18/18 22:00 09/27/18 21:59 Benadryl PO 50 mg HS LUZ Administration Divalproex Sodium 500 mg 09/18/18 10:00 09/27/18 21:[address] PO 500 mg BID LUZ Administration Enoxaparin Sodium 30 mg 09/20/18 22:00 09/27/18 21:59 Lovenox SUB-Q 30 mg QDAY@2200 LUZ Administration Epoetin Luis 20,000 unit 09/26/18 12:23 09/27/18 12:16 Procrit SUB-Q 20,000 unit KUSHAL PRN Administration hemodialysis Haloperidol 5 mg 09/25/18 22:00 09/27/18 21:59 Haldol PO 5 mg HS LUZ Administration Hydralazine HCl 10 mg 09/22/18 06:28 09/22/18 12:12 Apresoline IV 10 mg Q4H PRN Administration systolic b/p >165 Hydralazine HCl 50 mg 09/22/18 14:00 09/28/18 05:17 Apresoline PO 50 mg Q8HR LUZ Administration Hydromorphone HCl 0.5 mg 09/18/18 02:40 Dilaudid IV Q3H PRN Pain , Severe (7-10) Furosemide 100 mg/ Sodium 100 mls @ 10 mls/hr 09/23/18 14:00 Chloride IV DIRECT LUZ 10 MG/HR Sodium Chloride 1,000 mls @ 50 mls/hr 09/26/18 08:30 09/26/18 09:04 Nacl 0.9% 1000 Ml IV 50 mls/hr DIRECT LUZ Administration Sodium Chloride 100 mls @ 999 mls/hr 09/27/18 10:05 Nacl 0.9% IV KUSHAL PRN Hypotension Ondansetron HCl 4 mg 09/18/18 02:40 09/23/18 08:45 Zofran IV 4 mg Q8H PRN Administration Nausea And Vomiting Oxycodone/Acetaminophen 1 tab 09/18/18 02:40 09/27/18 12:14 Percocet 5/325 PO 1 tab Q6H PRN Administration Pain, Moderate (4-6) Pantoprazole Sodium 40 mg 09/27/18 12:00 09/27/18 18:07 Protonix IV 40 mg DAILY LUZ Administration Sodium Chloride 10 ml 09/18/18 10:00 09/27/18 22:01 Sodium Chloride Flush Syringe 10 Ml IV 10 ml BID LUZ Administration Sodium Chloride 10 ml 09/18/18 02:40 Sodium Chloride Flush Syringe 10 Ml IV PRN PRN LINE FLUSH
[2018-09-28] MEDS ORDERED: NACL 0.9% 100 ML IV PRN (09:06)
--- NOTE | 2018-09-28 10:34 | Progress Note ---
Assessment and Plan Acute hypoxemic respiratory failure Sepsis secondary to left lower lobe PNA Extreme obesity Nephrotic syndrome Enterococcus UTI Renal failure on HD Nephrotic syndrome, refused renal biopsy Anemia - continue supplemental oxygen to keep O2 sat's > 90% - complete antibiotic course -nocturnal BIPAP and prn during the day - bronchodilators per protocol - weight loss counseled - now dialysis dependent; continue HD/UF per nephrology prescription - no active GI bleeding and was related to Radha Mendez tear - VTE w/up negative -influenza and pneumonia vaccination per protocol -out patient sleep study on discharge -weight loss and lifestyle modifications discussed. She appears to have a chronic psychosis whic is a barrier to her comprehension of the severity of her illness. - continue other care per attending / other consultants Subjective Date of service: 09/28/18 Principal diagnosis: coffee-ground emesis Interval history: follow up: Acute hypoxic respiratory failure: Abnormal CXR, Morbid obesity with probable STEFF Seen and examined. Vitals, labs, medications, chart and imaging reviewed. No acute overnight events, remains on supplemental oxygen. In consistently tolerating NIPPV Objective - Exam Narrative Exam: Constitutional: Generalized swelling. Head: Normocephalic atraumatic Eyes: Pupils are equal round and reactive to light Nose: No enlarged turbinates, no septal deviation. Mouth: Moist mucous membranes. Neck: Supple no thyromegaly. No bruit. No JVD Heart: Regular rate and rhythm, S1-S2 normal. No rubs murmurs or gallop Lungs: Diminished to auscultation bilaterally. no rales or rhonchi Abdomen: Soft, nontender. Bowel sound are present. Edematous Extremities: 2+ edema, no cyanosis, no clubbing. Neuro: Alert oriented Oriented x3. No focal sensory or motor deficit. Skin: No rashes or hyperpigmented spots Musculoskeletal system: No joint pain or swelling Hematological: No petechia or subcutanous hemorrhages. Lymphatic: No generalized lymphadenopathy Psychiatry: Euthymic. Calm. Vital Signs - 12hr 09/27/18 09/28/18 09/28/18 23:38 01:34 05:17 Temperature 97.9 F Pulse Rate 101 H 88 Respiratory 20 20 Rate Blood Pressure 148/85 O2 Sat by Pulse 97 Oximetry Constitutional: no acute distress, alert Eyes: non-icteric ENT: oropharynx moist Neck: supple, no JVD Ascultation: Bilateral: diminished breath sounds Cardiovascular: regular rate and rhythm Gastrointestinal: normoactive bowel sounds, soft, non-tender Integumentary: normal Extremities: no cyanosis, no edema Neurologic: non-focal exam, pupils equal and round, CN II-XII normal Psychiatric: depressed CBC and BMP: 10/06/18 06:22 10/05/18 06:50 ABG, PT/INR, D-dimer: ABG POC ABG pH 7.375 (7.35-7.45) 09/23/18 15:06 POC ABG pCO2 36.3 (35-45) 09/23/18 15:06 POC ABG pO2 99 (80-105) 09/23/18 15:06 POC ABG HCO3 21.2 09/23/18 15:06 POC ABG Total CO2 22 09/23/18 15:06 POC ABG O2 Sat 98 09/23/18 15:06 PT/INR, D-dimer PT 12.7 Sec. (12.2-14.9) 09/26/18 Unknown INR 0.90 (0.87-1.13) 09/26/18 Unknown Abnormal lab findings: Abnormal Labs 09/17/18 09/17/18 09/17/18 15:17 15:17 15:17 WBC RBC 3.34 L Hgb 9.1 L Hct 27.9 L MCH 27 L RDW 20.5 H Plt Count Lymph % (Auto) Barron % (Auto) 8.8 H APTT 22.2 L Potassium Chloride 107.7 H BUN 37 H Creatinine 2.3 H Glucose Calcium 7.4 L Phosphorus Magnesium 2.60 H ALT Total Creatine Kinase NT-Pro-B Natriuret Pep 992.5 H Serum Total Protein Total Protein 4.1 L Albumin 1.3 L Gamma Globulins PEP Interpretation Urine WBC (Auto) Urine Creatinine Ur Creatinine 24 Hour Ur Total Protein 24 Hr Urine Total Protein Valproic Acid Crossmatch 09/17/18 09/18/18 09/18/18 17:18 05:22 05:22 WBC 4.4 L RBC 3.06 L Hgb 8.5 L Hct 25.5 L MCH RDW 20.0 H Plt Count Lymph % (Auto) 36.5 H Barron % (Auto) 12.3 H APTT Potassium Chloride 107.2 H BUN 37 H Creatinine 2.2 H Glucose Calcium 7.4 L Phosphorus Magnesium ALT 6 L Total Creatine Kinase NT-Pro-B Natriuret Pep Serum Total Protein Total Protein 3.9 L Albumin 1.4 L Gamma Globulins PEP Interpretation Urine WBC (Auto) 15.0 H Urine Creatinine Ur Creatinine 24 Hour Ur Total Protein 24 Hr Urine Total Protein Valproic Acid Crossmatch 09/18/18 09/19/18 09/19/18 10:30 05:45 05:45 WBC RBC Hgb Hct MCH RDW Plt Count Lymph % (Auto) Barron % (Auto) APTT Potassium Chloride BUN 37 H Creatinine 2.1 H Glucose Calcium 7.3 L Phosphorus Magnesium ALT Total Creatine Kinase NT-Pro-B Natriuret Pep Serum Total Protein 3.4 L Total Protein Albumin 1.2 L Gamma Globulins 0.5 L PEP Interpretation see below H Urine WBC (Auto) Urine Creatinine 147.5 H Ur Creatinine 24 Hour 0.7 L Ur Total Protein 24 Hr 1073.50 H Urine Total Protein 226 H Valproic Acid Crossmatch 09/20/18 09/20/18 09/21/18 04:56 15:15 06:13 WBC RBC 2.84 L Hgb 7.8 L Hct 24.1 L MCH 27 L RDW 19.8 H Plt Count Lymph % (Auto) Barron % (Auto) 12.9 H APTT Potassium 5.4 H 5.5 H Chloride 108.2 H BUN 38 H Creatinine 2.4 H Glucose Calcium 7.2 L Phosphorus Magnesium ALT Total Creatine Kinase NT-Pro-B Natriuret Pep Serum Total Protein Total Protein Albumin Gamma Globulins PEP Interpretation Urine WBC (Auto) Urine Creatinine Ur Creatinine 24 Hour Ur Total Protein 24 Hr Urine Total Protein Valproic Acid Crossmatch 09/21/18 09/21/18 09/22/18 06:13 07:00 10:12 WBC RBC Hgb Hct MCH RDW Plt Count Lymph % (Auto) Barron % (Auto) APTT Potassium 5.2 H Chloride 108.2 H 111.5 H BUN 39 H 40 H Creatinine 2.7 H 3.1 H Glucose Calcium 7.3 L 7.1 L Phosphorus Magnesium ALT Total Creatine Kinase NT-Pro-B Natriuret Pep Serum Total Protein Total Protein Albumin Gamma Globulins PEP Interpretation Urine WBC (Auto) Urine Creatinine 97.5 H Ur Creatinine 24 Hour Ur Total Protein 24 Hr Urine Total Protein 708 H Valproic Acid Crossmatch 09/23/18 09/25/18 09/25/18 04:40 07:30 07:30 WBC RBC 2.55 L Hgb 6.9 L Hct 21.5 L MCH 27 L RDW 19.5 H Plt Count Lymph % (Auto) Barron % (Auto) 12.2 H APTT Potassium Chloride 109.1 H BUN 42 H 33 H Creatinine 3.8 H 4.4 H Glucose 102 H Calcium 7.2 L 7.3 L Phosphorus 5.00 H Magnesium ALT Total Creatine Kinase NT-Pro-B Natriuret Pep Serum Total Protein Total Protein Albumin Gamma Globulins PEP Interpretation Urine WBC (Auto) Urine Creatinine Ur Creatinine 24 Hour Ur Total Protein 24 Hr Urine Total Protein Valproic Acid Crossmatch 09/26/18 09/26/18 09/26/18 07:17 07:17 07:17 WBC RBC Hgb 6.7 L Hct 20.0 L MCH RDW Plt Count Lymph % (Auto) Barron % (Auto) APTT Potassium Chloride BUN 24 H Creatinine 4.1 H Glucose Calcium 7.0 L Phosphorus Magnesium ALT Total Creatine Kinase 559 H NT-Pro-B Natriuret Pep Serum Total Protein Total Protein Albumin Gamma Globulins PEP Interpretation Urine WBC (Auto) Urine Creatinine Ur Creatinine 24 Hour Ur Total Protein 24 Hr Urine Total Protein Valproic Acid 13.2 L Crossmatch 09/26/18 09/27/18 09/27/18 Unknown 07:42 07:42 WBC RBC 2.16 L Hgb 6.0 L Hct 18.1 L* MCH RDW 18.9 H Plt Count 130 L Lymph % (Auto) Barron % (Auto) 15.8 H APTT 36.7 H Potassium Chloride 108.4 H BUN 26 H Creatinine 4.8 H Glucose Calcium 7.1 L Phosphorus 4.60 H Magnesium ALT Total Creatine Kinase NT-Pro-B Natriuret Pep Serum Total Protein Total Protein Albumin Gamma Globulins PEP Interpretation Urine WBC (Auto) Urine Creatinine Ur Creatinine 24 Hour Ur Total Protein 24 Hr Urine Total Protein Valproic Acid Crossmatch 09/27/18 09/28/18 10:43 04:43 WBC RBC 3.29 L Hgb 8.9 L Hct 27.2 L D MCH 27 L RDW 19.3 H Plt Count 130 L Lymph % (Auto) Barron % (Auto) APTT Potassium Chloride BUN Creatinine Glucose Calcium Phosphorus Magnesium ALT Total Creatine Kinase NT-Pro-B Natriuret Pep Serum Total Protein Total Protein Albumin Gamma Globulins PEP Interpretation Urine WBC (Auto) Urine Creatinine Ur Creatinine 24 Hour Ur Total Protein 24 Hr Urine Total Protein Valproic Acid Crossmatch See Detail
--- NOTE | 2018-09-28 11:52 | Consultation ---
History of Present Illness - Reason for Consult Consult date: 09/28/18 VRE in urine culture Requesting physician: JEAN ANTONIO - History of Present Illness The patient is a 47-year-old female with hypertension, obesity, schizophrenia presented to the emergency room on 09/17/2018 with complaints of worsening bilateral leg swelling, shortness of breath and weight gain. She was noted to have elevated creatinine with nephrotic range proteinuria. She was also noted to have fluid overload versus possibility of pneumonia on the left side for which she was empirically started on IV antibiotics. The patient has been seen by nephrology, has serology workup pending. She has also been initiated on dialysis. Apparently, patient refused renal biopsy. She has also been refusing care intermittently for which psychiatry was consulted. Subsequent x-ray showed no pneumonia so her antibiotics were discontinued. Infectious diseases was consulted today due to urine culture growing VRE. The patient has a flat affect, and is a poor historian. Currently, she states that she feels fine. She denies any cough or shortness of breath. Denies any fever or chills. Denies any nausea, vomiting or diarrhea. Denies any urinary burning. She still complains of swelling overall. Review of Systems: General: no fevers,chills or rigors HEENT: no new visual disturbance Respiratory: No cough, sputum, hemoptysis or shortness of breath Cardiovascular: No chest pain, syncope Gastrointestinal: No nausea, vomiting or diarrhea Genitourinary: No dysuria or hematuria Musculoskeletal: No new or worsening neck pain or back pain Neurologic: No headaches, seizures Hematologic: No easy bruising or bleeding Endocrine: No night sweats or acute weight loss Skin: negative for rash, jaundice Psychiatric: No suicidal or homicidal ideation Past History Past Medical History: ESRD, other (Scizophrenia) Social history: no significant social history Family history: no significant family history Medications and Allergies Allergies Allergy/AdvReac Type Severity Reaction Status Date / Time No Known Allergies Allergy Unverified 09/17/18 15:05 Home Medications Medication Instructions Recorded Confirmed Last Taken Type Divalproex Sodium [Depakote] 500 mg PO BID 09/17/18 09/17/18 Unknown History Haldol (Nf) 09/17/18 Unknown History Invega Sustenna 09/17/18 Unknown History diphenhydrAMINE [Benadryl CAP] 50 mg PO HS 09/17/18 09/17/18 Unknown History Active Meds: Active Medications Acetaminophen (Tylenol) 650 mg PO Q4H PRN PRN Reason: Pain MILD(1-3)/Fever >100.5/MENDOZA Last Admin: 09/27/18 05:36 Dose: 650 mg Documented by: Atorvastatin Calcium (Lipitor) 40 mg PO QHS [facility] Last Admin: 09/27/18 22:00 Dose: 40 mg Documented by: Diphenhydramine HCl (Benadryl) 50 mg PO [facility] Last Admin: 09/27/18 21:59 Dose: 50 mg Documented by: Divalproex Sodium (Depakote Dr) 500 mg PO BID [facility] Last Admin: 09/27/18 21:59 Dose: 500 mg Documented by: Enoxaparin Sodium (Lovenox) 30 mg SUB-Q QDAY@2200 [facility] Last Admin: 09/27/18 21:59 Dose: 30 mg Documented by: Epoetin Luis (Procrit) 20,000 unit SUB-Q KUSHAL PRN PRN Reason: hemodialysis Last Admin: 09/27/18 12:16 Dose: 20,000 unit Documented by: Haloperidol (Haldol) 5 mg PO [facility] Last Admin: 09/27/18 21:59 Dose: 5 mg Documented by: Hydralazine HCl (Apresoline) 10 mg IV Q4H PRN PRN Reason: systolic b/p >165 Last Admin: 09/22/18 12:12 Dose: 10 mg Documented by: Hydralazine HCl (Apresoline) 50 mg PO Q8HR [facility] Last Admin: 09/28/18 05:17 Dose: 50 mg Documented by: Hydromorphone HCl (Dilaudid) 0.5 mg IV Q3H PRN PRN Reason: Pain , Severe (7-10) Furosemide 100 mg/ Sodium (Chloride) 100 mls @ 10 mls/hr IV DIRECT [facility] Sodium Chloride (Nacl 0.9% 1000 Ml) 1,000 mls @ 50 mls/hr IV DIRECT [facility] Last Admin: 09/26/18 09:04 Dose: 50 mls/hr Documented by: Sodium Chloride (Nacl 0.9%) 100 mls @ 999 mls/hr IV KUSHAL PRN PRN Reason: Hypotension Sodium Chloride (Nacl 0.9%) 100 mls @ 999 mls/hr IV KUSHAL PRN PRN Reason: Hypotension Ondansetron HCl (Zofran) 4 mg IV Q8H PRN PRN Reason: Nausea And Vomiting Last Admin: 09/23/18 08:45 Dose: 4 mg Documented by: Oxycodone/Acetaminophen (Percocet 5/325) 1 tab PO Q6H PRN PRN Reason: Pain, Moderate (4-6) Last Admin: 09/27/18 12:14 Dose: 1 tab Documented by: Pantoprazole Sodium (Protonix) 40 mg IV DAILY [facility] Last Admin: 09/27/18 18:07 Dose: 40 mg Documented by: Sodium Chloride (Sodium Chloride Flush Syringe 10 Ml) 10 ml IV BID [facility] Last Admin: 09/27/18 22:01 Dose: 10 ml Documented by: Sodium Chloride (Sodium Chloride Flush Syringe 10 Ml) 10 ml IV PRN PRN PRN Reason: LINE FLUSH Physical Examination - Physical Exam Narrative exam: Physical Exam: Constitutional: Alert, cooperative. No acute distress. Obese Head, Ears, Nose: Normocephalic, atraumatic. External ears, nose normal Eyes: Conjunctivae/corneas clear. No icterus. No ptosis. Neck: Supple, no meningeal signs Oral: no thrush Cardiovascular: S1, S2 normal. Respiratory: Good air entry, clear to auscultation bilaterally GI: Soft, non-tender; bowel sounds normal. No peritoneal signs. No suprapubic or CVA tenderness Musculoskeletal: 2+ pedal edema, no cyanosis. Skin: No rash or abscess Hem/Lymphatic: No palpable cervical or supraclavicular nodes. No lymphangitis Psych: Mood ok. Affect flat Neurological: Awake, alert, oriented. No gross abnormality Lines: HD Cath + - Constitutional Vitals: Vital Signs Temp Pulse Resp BP Pulse Ox 97.9 F 88 20 148/85 97 09/27/18 23:38 09/28/18 05:17 09/28/18 01:34 09/27/18 23:38 09/27/18 23:38 Temperature -Last 24 Hours Temperature 97.9 F Temperature 98.5 F Temperature 98.3 F Temperature 98.3 F Temperature 98.3 F Temperature 98.3 F Temperature 98.3 F Temperature 98.3 F Temperature 98.3 F Temperature 98.2 F Temperature 98.3 F Results - Labs CBC & Chem 7: 09/28/18 04:43 09/27/18 07:42 Labs: Abnormal lab results 09/27/18 09/28/18 Range/Units 10:43 04:43 RBC 3.29 L (3.65-5.03) M/mm3 Hgb 8.9 L (10.1-14.3) gm/dl Hct 27.2 L D (30.3-42.9) % MCH 27 L (28-32) pg RDW 19.3 H (13.2-15.2) % Plt Count 130 L (140-440) K/mm3 Crossmatch See Detail - Imaging and Cardiology Chest x-ray: report reviewed, image reviewed (fluid overload. no pneumonia seen.) Assessment and Plan Cultures: 09/20/2018 and blood culture: No growth 09/21/2018 urine culture: 10K - 100K Enterococcus faecium (VRE) A/P: 47-year-old female with hypertension, obesity, schizophrenia presented to the emergency room on 09/17/2018 with complaints of worsening bilateral leg swelling, shortness of breath and weight gain. She was noted to have elevated creatinine with nephrotic range proteinuria. Also with: 1) VRE UTI versus asymptomatic bacteriuria: Patient without any symptoms, UA with mild pyuria of 15 WBC. Could be contaminant as well. Not clinically concerning for pyelonephritis. At most, possible cystitis. Considering that she has nephrotic syndrome and possibly some immune compromise related to that, can treat with PO Amoxicillin x 3 days. Aminopenicillins concentrate very well in the urinary tract and overcome resistant Enterococcus. 2) Acute renal failure: with nephrotic syndrome. on HD now. Nephrology following. HIV non reactive. BI, C3, C4, ANCA negative. Renally dose abx. 3) Morbid obesity 4) Anemia, mild thrombocytopenia Recs: PO Amoxicillin 500 mg daily x 3 days contact isolation due to VRE MD [facility] C: [phone] O: [phone] F: [phone]
[2018-09-28] MEDS: TRIMOX PO SCH (14:09)
[2018-09-28] MEDS: PROTONIX IV SCH (14:10)
--- NOTE | 2018-09-28 16:45 | Progress Note ---
Assessment and Plan Assessment and plan: Patient is a 47 yo woman with a history of Obesity, HTN and Schizophrenia who presented to the ER with bilateral leg swelling, SOB and increase in the abdominal girth and weight gain of ~86 pounds in 10 weeks. Patient denies any h/o heart disease or Liver problem. Labs were significant for creatinine of 2.2, Hb 8.5, albumin 1.4 and 3+ protein in the urine. Patient was admitted with provisional diagnosis of Nephrotic syndrome. Nephrology was consulted for further evaluation and recommended Kidney biopsy; which patient refused on multiple occasions so Radiology declined to re-schedule the procedure. Also, During hospital coarse, she was found to have coffee ground emesis and EGD was done on 09/26/18 and showed M-W tear. Her hemoglobin was steadily dropping and she initially refused blood transfusion until Mr. Galeas convinced her to get the blood transfusion and do Hemodialysis which she refuses at times. 09/26/18 EGD Pre-op diagnosis: gi bleed Post-op diagnosis: same Findings: EGD: large hiatal hernia - m-w tear with pigmented area jut above g-e junction - mild gastritis - negative other Procedure: EGD =Nephrotic syndrome. Urine protein quantification pending. Follow BI, ANCA and complements. Renal ultrasound negative. Patient unfortunately refused kidney biopsy. =Coffee-ground emesis with Radha Mendez Tear. GI consulted H&H dropped and she refused blood transfusion today. =Acute on chronic Blood loss anemia due to above =Right lower extremity thigh pain. Doppler lower extremities bilaterally negative for DVT =Left breast swelling, unknown at present. Need outpatient Mammogram and U/S =Morbid obesity, bmi 55.2: lifestyle modification =Medical noncompliance. Patient intermittently at times refusing care. Psych/Mik told me she has decision making capacity. =Schizophrenia, Bipolar disorder. Continue current medications.. As above. Psych consulted =Hyperkalemia. Kayexalate. Recheck BMP in the morning. =Sepsis. Left lower lobe pneumonia. Present on admission. Continue IV antibioti cs. Etiology secondary to pneumonia and UTI. =ARF, vasomotor nephropathy, poa =VRE: ID is following, ordered isolation Patient is apart of [facility] and ACT Team, call, psychiatrist Dr. Tatum @ [phone] and If Dr. Tatum is not available, call coordinator of care, Rao Gudelia [phone]. Disposition: continue inpatient care, needs HD dialysis setup and new placement. Radiology has refused to re-schedule the Kidney biopsy because they have tired 3 times and pt refuses. History Interval history: Patient was seen and examined. Follow-up on current diagnosis of GIB. Overnight uneventful. Patient denies any chest pain, shortness breath, nausea/vomiting or severe headaches. Imaging, nursing note, chart, labs and old chart reviewed. Discussed with patient. Hospitalist Physical - Physical exam Narrative exam: Patient Refused exam today because she had an accident with stool, I notified charge nurse - Constitutional Vitals: Temp Pulse Resp BP Pulse Ox 98.2 F 110 H 18 140/64 93 09/28/18 05:41 09/28/18 10:00 09/28/18 05:41 09/28/18 05:41 09/28/18 05:41 General appearance: Present: no acute distress, obese Results - Labs CBC & Chem 7: 09/28/18 04:43 09/27/18 07:42 Labs: Laboratory Last Values WBC 6.5 K/mm3 (4.5-11.0) 09/28/18 04:43 RBC 3.29 M/mm3 (3.65-5.03) L 09/28/18 04:43 Hgb 8.9 gm/dl (10.1-14.3) L 09/28/18 04:43 Hct 27.2 % (30.3-42.9) L D 09/28/18 04:43 MCV 83 fl (79-97) 09/28/18 04:43 MCH 27 pg (28-32) L 09/28/18 04:43 MCHC 33 % (30-34) 09/28/18 04:43 RDW 19.3 % (13.2-15.2) H 09/28/18 04:43 Plt Count 130 K/mm3 (140-440) L 09/28/18 04:43 Lymph % (Auto) 24.7 % (13.4-35.0) 09/27/18 07:42 Allen % (Auto) 15.8 % (0.0-7.3) H 09/27/18 07:42 Eos % (Auto) 0.9 % (0.0-4.3) 09/27/18 07:42 Baso % (Auto) 0.3 % (0.0-1.8) 09/27/18 07:42 Lymph # 1.3 K/mm3 (1.2-5.4) 09/27/18 07:42 Allen # 0.8 K/mm3 (0.0-0.8) 09/27/18 07:42 Eos # 0.0 K/mm3 (0.0-0.4) 09/27/18 07:42 Baso # 0.0 K/mm3 (0.0-0.1) 09/27/18 07:42 Seg Neutrophils % 58.3 % (40.0-70.0) 09/27/18 07:42 Seg Neutrophils # 3.1 K/mm3 (1.8-7.7) 09/27/18 07:42 PT 12.7 Sec. (12.2-14.9) 09/26/18 Unknown INR 0.90 (0.87-1.13) 09/26/18 Unknown APTT 36.7 Sec. (24.2-36.6) H 09/26/18 Unknown POC ABG pH 7.375 (7.35-7.45) 09/23/18 15:06 POC ABG pCO2 36.3 (35-45) 09/23/18 15:06 POC ABG pO2 99 (80-105) 09/23/18 15:06 POC ABG HCO3 21.2 09/23/18 15:06 POC ABG Total CO2 22 09/23/18 15:06 POC ABG O2 Sat 98 09/23/18 15:06 POC ABG Base Excess -4 09/23/18 15:06 FiO2 2 % 09/23/18 15:06 Sodium 143 mmol/L (137-145) 09/27/18 07:42 Potassium 4.5 mmol/L (3.6-5.0) 09/27/18 07:42 Chloride 108.4 mmol/L (98-107) H 09/27/18 07:42 Carbon Dioxide 28 mmol/L (22-30) 09/27/18 07:42 Anion Gap 11 mmol/L 09/27/18 07:42 BUN 26 mg/dL (7-17) H 09/27/18 07:42 Creatinine 4.8 mg/dL (0.7-1.2) H 09/27/18 07:42 Estimated GFR 12 ml/min 09/27/18 07:42 BUN/Creatinine Ratio 5 % 09/27/18 07:42 Glucose 81 mg/dL (65-100) 09/27/18 07:42 Calcium 7.1 mg/dL (8.4-10.2) L 09/27/18 07:42 Phosphorus 4.60 mg/dL (2.5-4.5) H 09/27/18 07:42 Magnesium 2.60 mg/dL (1.7-2.3) H 09/17/18 15:17 Total Bilirubin < 0.20 mg/dL (0.1-1.2) 09/18/18 05:22 AST 13 units/L (5-40) 09/18/18 05:22 ALT 6 units/L (7-56) L 09/18/18 05:22 Alkaline Phosphatase 51 units/L (35-129) 09/18/18 05:22 Total Creatine Kinase 559 units/L (30-135) H 09/26/18 07:17 Troponin T 0.012 ng/mL (0.00-0.029) 09/17/18 15:17 NT-Pro-B Natriuret Pep 992.5 pg/mL (0-450) H 09/17/18 15:17 Serum Total Protein 3.4 g/dL (6.1-8.1) L 09/19/18 05:45 Total Protein 3.9 g/dL (6.3-8.2) L 09/18/18 05:22 Albumin 1.2 g/dL (3.8-4.8) L 09/19/18 05:45 Albumin/Globulin Ratio 0.6 % 09/18/18 05:22 Rnpdb-6-Slifzszxc 0.3 g/dL (0.2-0.3) 09/19/18 05:45 Bugfj-0-Ttpdplxib 0.8 g/dL (0.5-0.9) 09/19/18 05:45 Beta Globulins 0.4 g/dL (0.2-0.5) 09/19/18 05:45 Gamma Globulins 0.5 g/dL (0.8-1.7) L 09/19/18 05:45 Abnorm Protein Band 1 see below 09/19/18 05:45 PEP Interpretation see below H 09/19/18 05:45 Amylase 53 units/L (27-131) 09/25/18 13:53 Lipase 48 units/L (13-60) 09/25/18 13:53 HCG, Qual Negative (Negative) 09/25/18 13:53 PTH Intact 46.07 pg/mL (15-65) 09/19/18 05:45 Urine Color Yellow (Yellow) 09/17/18 17:18 Urine Turbidity Cloudy (Clear) 09/17/18 17:18 Urine pH 5.0 (5.0-7.0) 09/17/18 17:18 Ur Specific [place] 1.029 (1.003-1.030) 09/17/18 17:18 Urine Protein >500 mg/dL (Negative) 09/17/18 17:18 Urine Glucose (UA) Neg mg/dL (Negative) 09/17/18 17:18 Urine Ketones Tr mg/dL (Negative) 09/17/18 17:18 Urine Blood Sm (Negative) 09/17/18 17:18 Urine Nitrite Neg (Negative) 09/17/18 17:18 Urine Bilirubin Neg (Negative) 09/17/18 17:18 Urine Urobilinogen < 2.0 mg/dL (<2.0) 09/17/18 17:18 Ur Leukocyte Esterase Neg (Negative) 09/17/18 17:18 Urine WBC (Auto) 15.0 /HPF (0.0-6.0) H 09/17/18 17:18 Urine RBC (Auto) 13.0 /HPF (0.0-6.0) 09/17/18 17:18 U Epithel Cells (Auto) 6.0 /HPF (0-13.0) 09/17/18 17:18 Urine Bacteria (Auto) 2+ /HPF (Negative) 09/17/18 17:18 Urine WBC Clumps 2+ /HPF 09/17/18 17:18 Hyaline Casts 6 /LPF 09/17/18 17:18 Urine Mucus Few /HPF 09/17/18 17:18 Urine Yeast (Budding) 2+ /HPF 09/17/18 17:18 Urine Eosinophils None seen (None Seen) 09/18/18 10:30 Urine Total Volume 475 ml 09/18/18 10:30 Urine Creatinine 97.5 mg/dL (0.1-20.0) H 09/21/18 07:00 Ur Creatinine 24 Hour 0.7 (0.8-2.8) L 09/18/18 10:30 Ur Total Protein 24 Hr 1073.50 mg/dL (2-200) H 09/18/18 10:30 Protein/Creatinin Ratio 7.26 09/21/18 07:00 Urine Sodium 53 mmol/L 09/21/18 07:00 Urine Urea Nitrogen 467 09/18/18 10:30 Ur Urea Nitrogen 24 Hr 2.22 09/18/18 10:30 Urine Total Protein 708 mg/dL (5-11.8) H 09/21/18 07:00 Urine Opiates Screen Presumptive negative 09/17/18 17:18 Urine Methadone Screen Presumptive negative 09/17/18 17:18 Ur Barbiturates Screen Presumptive negative 09/17/18 17:18 Valproic Acid 13.2 ug/mL (50-100) L 09/26/18 07:17 Ur Phencyclidine Scrn Presumptive negative 09/17/18 17:18 Ur Amphetamines Screen Presumptive negative 09/17/18 17:18 U Benzodiazepines Scrn Presumptive negative 09/17/18 17:18 Urine Cocaine Screen Presumptive negative 09/17/18 17:18 U Marijuana (THC) Screen Presumptive negative 09/17/18 17:18 Drugs of Abuse Note Disclamer 09/17/18 17:18 BI Screen Negative (Negative) 09/19/18 05:45 Proteinase 3 (PR3) Ab <1.0 AI (<1.0) 09/19/18 05:45 Myeloperoxidase Ab <1.0 AI (<1.0) 09/19/18 05:45 Glomerular Base Mem IgG See scanned result 09/19/18 05:45 Complement C3 143 mg/dL (83-193) 09/19/18 05:45 Complement C4 56 mg/dL (15-57) 09/19/18 05:45 Hepatitis A IgM Ab Non-reactive (NonReactive) 09/19/18 05:45 Hep Bs Antigen Non-reactive (Negative) 09/19/18 05:45 Hep B Core IgM Ab Non-reactive (NonReactive) 09/19/18 05:45 Hepatitis C Antibody Non-reactive (NonReactive) 09/19/18 05:45 HIV 1&2 Antibody Rapid Non react (Non React) 09/27/18 07:42 HIV P24 Antigen Non react (Non React) 09/27/18 07:42 Blood Type O POSITIVE 09/27/18 10:43 Antibody Screen Negative 09/27/18 10:43 Crossmatch See Detail 09/27/18 10:43 Nutrition/Malnutrition Assess - Dietary Evaluation Nutrition/Malnutrition Findings: Nutrition Notes Start: 09/24/18 15:36 Freq: Status: Active Protocol: Document 09/26/18 10:24 TW (Rec: 09/26/18 11:02 TW [email or web address]) Co-Sign 09/26/18 10:24 LP Nutrition Notes Initial or Follow up Reassessment Current Diagnosis Sepsis Other Pertinent Diagnosis Schizophrenia,Nephrotic syndrome,UTI,Pneu,Coffee ground emesis Current Diet NPO Labs/Tests BUN 24 Creat 4.1 Pertinent Medications Lasix Height 5 ft 6 in Weight 148.8 kg [place] Body Weight (kg) 59.09 BMI 52.9 Subjective/Other Information Pt not in the room at time of visit d/t endoscopy. Pt RN is not sure of the patients appetite prior to NPO status. Will continue to monitor. Burn Absent Trauma Absent #1 Nutrition Diagnosis Inadequate oral intake Diagnosis Progress(for reassessment Continues documentation) Is patient on ventilator? No Is Patient Ambulatory and/or Out of Bed Yes REE-([place]-St. Jeor-ambulatory/OOB) [ 2788.175 NUTR.[id number]] Kcal/Kg value to use for calculation 15 Approximate Energy Requirements Using 2232 kcal/Kg Calculation Used for Recommendations Kcal/kg Additional Notes Protein Needs: 86-107g (0.8-1g /kg 107kg adjBW) Fluid Needs: 1 ml/kcal Nutrition Intervention Change Diet Order: Advance diet when medically feasible Goal #1 Meet at least 75% of calorie and protein needs via PO intakes Goal #2 Diet advancement Anticipated Discharge Needs: Cardiac diet Follow-Up By: 09/28/18 Additional Comments Follow for diet advancement, PO intakes and need for ONS
[2018-09-28] MEDS: SODIUM CHLORIDE FLUSH SYRINGE 10 ML IV SCH ×2 (21:12→22:27)
[2018-09-28] MEDS: PROCRIT SUB-Q PRN (22:15)
[2018-09-28] MEDS: BENADRYL PO SCH (22:46)
[2018-09-28] MEDS: HALDOL PO SCH (22:47)
[2018-09-28] MEDS: LOVENOX SUB-Q SCH (22:47)
[2018-09-28] MEDS: PERCOCET 5/325 PO PRN (23:56)
[2018-09-29 05:44] LABS: Basophils % (Auto) 0.3 % (0.0-1.8); Eosinophils # (Auto) 0.1 K/mm3 (0.0-0.4); Eosinophils % (Auto) 1.7 % (0.0-4.3); Hematocrit 27.1 % (30.3-42.9); Hemoglobin 8.9 gm/dl (10.1-14.3); Lymphocytes # (Auto) 1.4 K/mm3 (1.2-5.4); Lymphocytes % (Auto) 24.2 % (13.4-35.0); Mean Corpuscular HGB Conc 33 % (30-34); Mean Corpuscular Volume 83 fl (79-97); Monocytes # (Auto) 0.9 K/mm3 (0.0-0.8); Monocytes % (Auto) 15.6 % (0.0-7.3); Platelet Count 133 K/mm3 (140-440); Red Blood Count 3.28 M/mm3 (3.65-5.03); Red Cell Distribution Width 19.3 % (13.2-15.2)
[2018-09-29] MEDS: APRESOLINE PO SCH ×2 (05:47→13:50)
[2018-09-29] MEDS: LASIX PO SCH ×2 (05:47→18:00)
[2018-09-29 06:30] LABS: Calcium 7.1 mg/dL (8.4-10.2)
[2018-09-29] MEDS: PROTONIX IV SCH (09:06)
[2018-09-29] MEDS: SODIUM CHLORIDE FLUSH SYRINGE 10 ML IV SCH (09:06)
[2018-09-29] MEDS: TRIMOX PO SCH (09:06)
--- NOTE | 2018-09-29 09:15 | Progress Note ---
Assessment and Plan 1. Acute kidney injury: Likely related Nephrotic syndrome. Patient was started on hemodialysis on 09/24/2018 due to worsening renal function, anasarca and suspected pulmonary edema. Tolerated hemodialysis well. Last dialyzed 2 days ago. Patient refused HD / Isolated UF yesterday. Plan to do HD today. 2. Nephrotic syndrome: Etiology includes FSGS, Minimal change, Membranous and Lupus nephritis. Complements, BI, ANCA, SPEP, GBM Ab, Hepatitis panel and HIV are negative. Made several attempts to do Kidney biospy but she refused. Patient is on Lovenox to prevent DVT. Continue Statin. Eventually she needs ACEI / ARB. 3. Volume overload: UF with HD. On Lasix. 4. Hyperkalemia: Improved. 5. HTN. 6. Anemia: Present on admission. S/p PRBC. Epogen with HD. 7. Schizophrenia. 8. Medical non-compliance. Subjective Date of service: 09/29/18 Principal diagnosis: coffee-ground emesis Interval history: Patient was seen and examined at the bedside. Doing ok. Objective - Vital Signs Vital signs: Vital Signs - 12hr 09/28/18 09/28/18 09/29/18 22:47 23:48 05:40 Temperature 97.9 F 98.0 F Pulse Rate 84 78 Respiratory 24 20 Rate Blood Pressure 146/89 Blood Pressure 137/83 138/76 [Left] O2 Sat by Pulse 92 Oximetry 09/29/18 05:47 Temperature Pulse Rate Respiratory Rate Blood Pressure 138/76 Blood Pressure [Left] O2 Sat by Pulse Oximetry - General Appearance General appearance: well-developed, well-nourished, appears stated age, obese, other (not in distress) EENT: ATNC, PERRL, mucous membranes moist, hearing intact, vision intact Neck: supple Respiratory: Present: Clear to Ascultation Cardiology: regular, S1S2, no murmurs Gastrointestinal: normoactive bowel sounds, no tenderness, no distended Integumentary: no rash, warm and dry Neurologic: no focal deficit, no asterixis Musculoskeletal: other (2+ edema of both LEs noted) - Lab 09/29/18 05:07 09/29/18 05:07 Most recent lab results Calcium 7.1 mg/dL (8.4-10.2) L 09/29/18 05:07 Phosphorus 4.60 mg/dL (2.5-4.5) H 09/27/18 07:42 Magnesium 2.60 mg/dL (1.7-2.3) H 09/17/18 15:17 Urine Creatinine 97.5 mg/dL (0.1-20.0) H 09/21/18 07:00 Ur Total Protein 24 Hr 1073.50 mg/dL (2-200) H 09/18/18 10:30 Urine Sodium 53 mmol/L 09/21/18 07:00 Urine Total Protein 708 mg/dL (5-11.8) H 09/21/18 07:00 Medications & Allergies - Medications Allergies/Adverse Reactions: Allergies No Known Allergies Allergy (Unverified 09/17/18 15:05) Home Medications: Home Medications Medication Instructions Recorded Confirmed Last Taken Type Divalproex Sodium [Depakote] 500 mg PO BID 09/17/18 09/17/18 Unknown History Haldol (Nf) 09/17/18 Unknown History Invega Sustenna 09/17/18 Unknown History diphenhydrAMINE [Benadryl CAP] 50 mg PO HS 09/17/18 09/17/18 Unknown History Active Medications: Generic Name Dose Route Start Last Admin Trade Name Freq PRN Reason Stop Dose Admin Acetaminophen 650 mg 09/18/18 02:40 09/27/18 05:36 Tylenol PO 650 mg Q4H PRN Administration Pain MILD(1-3)/Fever >100.5/MENDOZA Amoxicillin 500 mg 09/28/18 13:00 09/29/18 09:06 Trimox PO 10/01/18 12:59 500 mg DAILY LUZ Administration Atorvastatin Calcium 40 mg 09/18/18 22:00 09/28/18 22:46 Lipitor PO 40 mg QHS LUZ Administration Diphenhydramine HCl 50 mg 09/18/18 22:00 09/28/18 22:46 Benadryl PO 50 mg HS LUZ Administration Divalproex Sodium 500 mg 09/18/18 10:00 09/29/18 09:[address] PO 500 mg BID LUZ Administration Enoxaparin Sodium 30 mg 09/20/18 22:00 09/28/18 22:47 Lovenox SUB-Q 30 mg QDAY@2200 LUZ Administration Epoetin Luis 20,000 unit 09/26/18 12:23 09/27/18 12:16 Procrit SUB-Q 20,000 unit KUSHAL PRN Administration hemodialysis Furosemide 80 mg 09/29/18 06:00 09/29/18 05:47 Lasix PO 80 mg 0600,1800 LUZ Administration Haloperidol 5 mg 09/25/18 22:00 09/28/18 22:47 Haldol PO 5 mg HS LUZ Administration Hydralazine HCl 10 mg 09/22/18 06:28 09/22/18 12:12 Apresoline IV 10 mg Q4H PRN Administration systolic b/p >165 Hydralazine HCl 50 mg 09/22/18 14:00 09/29/18 05:47 Apresoline PO 50 mg Q8HR LUZ Administration Hydromorphone HCl 0.5 mg 09/18/18 02:40 Dilaudid IV Q3H PRN Pain , Severe (7-10) Sodium Chloride 1,000 mls @ 50 mls/hr 09/26/18 08:30 09/26/18 09:04 Nacl 0.9% 1000 Ml IV 50 mls/hr DIRECT LUZ Administration Sodium Chloride 100 mls @ 999 mls/hr 09/27/18 10:05 Nacl 0.9% IV KUSHAL PRN Hypotension Sodium Chloride 100 mls @ 999 mls/hr 09/28/18 09:06 Nacl 0.9% IV KUSHAL PRN Hypotension Ondansetron HCl 4 mg 09/18/18 02:40 09/23/18 08:45 Zofran IV 4 mg Q8H PRN Administration Nausea And Vomiting Oxycodone/Acetaminophen 1 tab 09/18/18 02:40 09/28/18 23:56 Percocet 5/325 PO 1 tab Q6H PRN Administration Pain, Moderate (4-6) Pantoprazole Sodium 40 mg 09/27/18 12:00 09/29/18 09:06 Protonix IV 40 mg DAILY LUZ Administration Sodium Chloride 10 ml 09/18/18 10:00 09/29/18 09:06 Sodium Chloride Flush Syringe 10 Ml IV 10 ml BID LUZ Administration Sodium Chloride 10 ml 09/18/18 02:40 Sodium Chloride Flush Syringe 10 Ml IV PRN PRN LINE FLUSH
[2018-09-29] MEDS ORDERED: NACL 0.9% 100 ML IV PRN (09:16)
--- NOTE | 2018-09-29 13:44 | Progress Note ---
Assessment and Plan Assessment and plan: Patient is a 47 yo woman with a history of Obesity, HTN and Schizophrenia who presented to the ER with bilateral leg swelling, SOB and increase in the abdominal girth and weight gain of ~86 pounds in 10 weeks. Patient denies any h/o heart disease or Liver problem. Labs were significant for creatinine of 2.2, Hb 8.5, albumin 1.4 and 3+ protein in the urine. Patient was admitted with provisional diagnosis of Nephrotic syndrome. Nephrology was consulted for further evaluation and recommended Kidney biopsy; which patient refused on multiple occasions so Radiology declined to re-schedule the procedure. Also, During hospital coarse, she was found to have coffee ground emesis and EGD was done on 09/26/18 and showed M-W tear. Her hemoglobin was steadily dropping and she initially refused blood transfusion until Mr. Galeas convinced her to get the blood transfusion and do Hemodialysis which she refuses at times. 09/26/18 EGD Pre-op diagnosis: gi bleed Post-op diagnosis: same Findings: EGD: large hiatal hernia - m-w tear with pigmented area jut above g-e junction - mild gastritis - negative other Procedure: EGD =Nephrotic syndrome. Urine protein quantification pending. Follow BI, ANCA and complements. Renal ultrasound negative. Patient unfortunately refused kidney biopsy. =Coffee-ground emesis with Ardha Mendez Tear. GI consulted H&H dropped and she refused blood transfusion today. =Acute on chronic Blood loss anemia due to above =Right lower extremity thigh pain. Doppler lower extremities bilaterally negative for DVT =Left breast swelling, unknown at present. Need outpatient Mammogram and U/S =Morbid obesity, bmi 55.2: lifestyle modification =Medical noncompliance. Patient intermittently at times refusing care. Psych/Mik told me she has decision making capacity. =Schizophrenia, Bipolar disorder. Continue current medications.. As above. Psych consulted =Hyperkalemia. Kayexalate. Recheck BMP in the morning. =Sepsis. Left lower lobe pneumonia. Present on admission. Continue IV antibioti cs. Etiology secondary to pneumonia and UTI. =ARF, vasomotor nephropathy, poa =VRE: ID is following, ordered isolation Patient is apart of [place] [facility] Outreach and ACT Team, call, psychiatrist Dr. Tatum @ [phone] and If Dr. Tatum is not available, call coordinator of care, Rao Gudelia [phone]. Disposition: continue inpatient care, needs HD dialysis setup and new placement. Radiology has refused to re-schedule the Kidney biopsy because they have tired 3 times and pt refuses. History Interval history: Patient was seen and examined. Follow-up on current diagnosis of GIB. Overnight uneventful. Patient denies any chest pain, shortness breath, nausea/vomiting or severe headaches. Imaging, nursing note, chart, labs and old chart reviewed. Discussed with patient. Hospitalist Physical - Physical exam Narrative exam: Patient Refused exam today because she had an accident with stool, I notified charge nurse - Constitutional Vitals: Temp Pulse Resp BP Pulse Ox 98.5 F 104 H 24 138/70 96 09/29/18 12:05 09/29/18 12:05 09/29/18 12:05 09/29/18 12:05 09/29/18 12:05 General appearance: Present: no acute distress, obese Results - Labs CBC & Chem 7: 09/29/18 05:07 09/29/18 05:07 Labs: Laboratory Last Values WBC 6.0 K/mm3 (4.5-11.0) 09/29/18 05:07 RBC 3.28 M/mm3 (3.65-5.03) L 09/29/18 05:07 Hgb 8.9 gm/dl (10.1-14.3) L 09/29/18 05:07 Hct 27.1 % (30.3-42.9) L 09/29/18 05:07 MCV 83 fl (79-97) 09/29/18 05:07 MCH 27 pg (28-32) L 09/29/18 05:07 MCHC 33 % (30-34) 09/29/18 05:07 RDW 19.3 % (13.2-15.2) H 09/29/18 05:07 Plt Count 133 K/mm3 (140-440) L 09/29/18 05:07 Lymph % (Auto) 24.2 % (13.4-35.0) 09/29/18 05:07 [place] % (Auto) 15.6 % (0.0-7.3) H 09/29/18 05:07 Eos % (Auto) 1.7 % (0.0-4.3) 09/29/18 05:07 Baso % (Auto) 0.3 % (0.0-1.8) 09/29/18 05:07 Lymph # 1.4 K/mm3 (1.2-5.4) 09/29/18 05:07 [place] # 0.9 K/mm3 (0.0-0.8) H 09/29/18 05:07 Eos # 0.1 K/mm3 (0.0-0.4) 09/29/18 05:07 Baso # 0.0 K/mm3 (0.0-0.1) 09/29/18 05:07 Seg Neutrophils % 58.2 % (40.0-70.0) 09/29/18 05:07 Seg Neutrophils # 3.5 K/mm3 (1.8-7.7) 09/29/18 05:07 PT 12.7 Sec. (12.2-14.9) 09/26/18 Unknown INR 0.90 (0.87-1.13) 09/26/18 Unknown APTT 36.7 Sec. (24.2-36.6) H 09/26/18 Unknown POC ABG pH 7.375 (7.35-7.45) 09/23/18 15:06 POC ABG pCO2 36.3 (35-45) 09/23/18 15:06 POC ABG pO2 99 (80-105) 09/23/18 15:06 POC ABG HCO3 21.2 09/23/18 15:06 POC ABG Total CO2 22 09/23/18 15:06 POC ABG O2 Sat 98 09/23/18 15:06 POC ABG Base Excess -4 09/23/18 15:06 FiO2 2 % 09/23/18 15:06 Sodium 141 mmol/L (137-145) 09/29/18 05:07 Potassium 4.4 mmol/L (3.6-5.0) 09/29/18 05:07 Chloride 104.3 mmol/L (98-107) 09/29/18 05:07 Carbon Dioxide 28 mmol/L (22-30) 09/29/18 05:07 Anion Gap 13 mmol/L 09/29/18 05:07 BUN 22 mg/dL (7-17) H 09/29/18 05:07 Creatinine 5.4 mg/dL (0.7-1.2) H 09/29/18 05:07 Estimated GFR 10 ml/min 09/29/18 05:07 BUN/Creatinine Ratio 4 % 09/29/18 05:07 Glucose 86 mg/dL (65-100) 09/29/18 05:07 Calcium 7.1 mg/dL (8.4-10.2) L 09/29/18 05:07 Phosphorus 4.60 mg/dL (2.5-4.5) H 09/27/18 07:42 Magnesium 2.60 mg/dL (1.7-2.3) H 09/17/18 15:17 Total Bilirubin < 0.20 mg/dL (0.1-1.2) 09/18/18 05:22 AST 13 units/L (5-40) 09/18/18 05:22 ALT 6 units/L (7-56) L 09/18/18 05:22 Alkaline Phosphatase 51 units/L (35-129) 09/18/18 05:22 Total Creatine Kinase 559 units/L (30-135) H 09/26/18 07:17 Troponin T 0.012 ng/mL (0.00-0.029) 09/17/18 15:17 NT-Pro-B Natriuret Pep 992.5 pg/mL (0-450) H 09/17/18 15:17 Serum Total Protein 3.4 g/dL (6.1-8.1) L 09/19/18 05:45 Total Protein 3.9 g/dL (6.3-8.2) L 09/18/18 05:22 Albumin 1.2 g/dL (3.8-4.8) L 09/19/18 05:45 Albumin/Globulin Ratio 0.6 % 09/18/18 05:22 Wkqyk-8-Xlqrpngvl 0.3 g/dL (0.2-0.3) 09/19/18 05:45 Lkubw-2-Ratzjibmm 0.8 g/dL (0.5-0.9) 09/19/18 05:45 Beta Globulins 0.4 g/dL (0.2-0.5) 09/19/18 05:45 Gamma Globulins 0.5 g/dL (0.8-1.7) L 09/19/18 05:45 Abnorm Protein Band 1 see below 09/19/18 05:45 PEP Interpretation see below H 09/19/18 05:45 Amylase 53 units/L (27-131) 09/25/18 13:53 Lipase 48 units/L (13-60) 09/25/18 13:53 HCG, Qual Negative (Negative) 09/25/18 13:53 PTH Intact 46.07 pg/mL (15-65) 09/19/18 05:45 Urine Color Yellow (Yellow) 09/17/18 17:18 Urine Turbidity Cloudy (Clear) 09/17/18 17:18 Urine pH 5.0 (5.0-7.0) 09/17/18 17:18 Ur Specific [place] 1.029 (1.003-1.030) 09/17/18 17:18 Urine Protein >500 mg/dL (Negative) 09/17/18 17:18 Urine Glucose (UA) Neg mg/dL (Negative) 09/17/18 17:18 Urine Ketones Tr mg/dL (Negative) 09/17/18 17:18 Urine Blood Sm (Negative) 09/17/18 17:18 Urine Nitrite Neg (Negative) 09/17/18 17:18 Urine Bilirubin Neg (Negative) 09/17/18 17:18 Urine Urobilinogen < 2.0 mg/dL (<2.0) 09/17/18 17:18 Ur Leukocyte Esterase Neg (Negative) 09/17/18 17:18 Urine WBC (Auto) 15.0 /HPF (0.0-6.0) H 09/17/18 17:18 Urine RBC (Auto) 13.0 /HPF (0.0-6.0) 09/17/18 17:18 U Epithel Cells (Auto) 6.0 /HPF (0-13.0) 09/17/18 17:18 Urine Bacteria (Auto) 2+ /HPF (Negative) 09/17/18 17:18 Urine WBC Clumps 2+ /HPF 09/17/18 17:18 Hyaline Casts 6 /LPF 09/17/18 17:18 Urine Mucus Few /HPF 09/17/18 17:18 Urine Yeast (Budding) 2+ /HPF 09/17/18 17:18 Urine Eosinophils None seen (None Seen) 09/18/18 10:30 Urine Total Volume 475 ml 09/18/18 10:30 Urine Creatinine 97.5 mg/dL (0.1-20.0) H 09/21/18 07:00 Ur Creatinine 24 Hour 0.7 (0.8-2.8) L 09/18/18 10:30 Ur Total Protein 24 Hr 1073.50 mg/dL (2-200) H 09/18/18 10:30 Protein/Creatinin Ratio 7.26 09/21/18 07:00 Urine Sodium 53 mmol/L 09/21/18 07:00 Urine Urea Nitrogen 467 09/18/18 10:30 Ur Urea Nitrogen 24 Hr 2.22 09/18/18 10:30 Urine Total Protein 708 mg/dL (5-11.8) H 09/21/18 07:00 Urine Opiates Screen Presumptive negative 09/17/18 17:18 Urine Methadone Screen Presumptive negative 09/17/18 17:18 Ur Barbiturates Screen Presumptive negative 09/17/18 17:18 Valproic Acid 13.2 ug/mL (50-100) L 09/26/18 07:17 Ur Phencyclidine Scrn Presumptive negative 09/17/18 17:18 Ur Amphetamines Screen Presumptive negative 09/17/18 17:18 U Benzodiazepines Scrn Presumptive negative 09/17/18 17:18 Urine Cocaine Screen Presumptive negative 09/17/18 17:18 U Marijuana (THC) Screen Presumptive negative 09/17/18 17:18 Drugs of Abuse Note Disclamer 09/17/18 17:18 BI Screen Negative (Negative) 09/19/18 05:45 Proteinase 3 (PR3) Ab <1.0 AI (<1.0) 09/19/18 05:45 Myeloperoxidase Ab <1.0 AI (<1.0) 09/19/18 05:45 Glomerular Base Mem IgG See scanned result 09/19/18 05:45 Complement C3 143 mg/dL (83-193) 09/19/18 05:45 Complement C4 56 mg/dL (15-57) 09/19/18 05:45 Hepatitis A IgM Ab Non-reactive (NonReactive) 09/19/18 05:45 Hep Bs Antigen Non-reactive (Negative) 09/19/18 05:45 Hep B Core IgM Ab Non-reactive (NonReactive) 09/19/18 05:45 Hepatitis C Antibody Non-reactive (NonReactive) 09/19/18 05:45 HIV 1&2 Antibody Rapid Non react (Non React) 09/27/18 07:42 HIV P24 Antigen Non react (Non React) 09/27/18 07:42 Blood Type O POSITIVE 09/27/18 10:43 Antibody Screen Negative 09/27/18 10:43 Crossmatch See Detail 09/27/18 10:43 Nutrition/Malnutrition Assess - Dietary Evaluation Nutrition/Malnutrition Findings: Nutrition Notes Start: 09/24/18 15:36 Freq: Status: Active Protocol: Document 09/28/18 16:43 RM (Rec: 09/28/18 16:53 RM [id number]) Nutrition Notes Initial or Follow up Reassessment Current Diagnosis Sepsis Other Pertinent Diagnosis Schizophrenia,Nephrotic syndrome,UTI,Pneu,Coffee ground emesis, on HD Current Diet GI soft Labs/Tests Reviewed Pertinent Medications Reviewed Height 5 ft 6 in Weight 147.8 kg [place] Body Weight (kg) 59.09 BMI 52.6 Subjective/Other Information Pt stated that her appetite is good and that she eats all of her meals. Noted lunch at bedside w/most eaten. Percent of energy/protein needs met: 93%/100% Burn Absent Trauma Absent #1 Nutrition Diagnosis Inadequate oral intake As Evidenced by Signs and Symptoms pt meeting 93% of calorie and 100% of protein needs Diagnosis Progress(for reassessment Resolved documentation) Is patient on ventilator? No Is Patient Ambulatory and/or Out of Bed Yes REE-([facility]-ambulatory/OOB) [ 2775.175 [id number]] Kcal/Kg value to use for calculation 15 Approximate Energy Requirements Using 2217 kcal/Kg Calculation Used for Recommendations Kcal/kg Additional Notes Protein Needs: 71-77g (1.2-1. 3g/kg IBW) Fluid Needs: 1 ml/kcal Nutrition Intervention Change Diet Order: GI soft,Renal Goal #1 Continue to meet at least 75% of calorie and protein needs via PO intakes Anticipated Discharge Needs: Unable to determine at this time Follow-Up By: 10/02/18 Additional Comments Follow for PO and ONS intakes
--- NOTE | 2018-09-29 19:57 | Progress Note ---
Assessment and Plan Patient receiving hemodialysis.Patient is on 4 litres o2. O2 saturation 98%. No acute respiratory distress. - Patient Problems (1) Pneumonia involving left lung Current Visit: Yes Status: Acute Plan to address problem: Patient is on Amoxicillin. (2) Acute exacerbation of congestive heart failure Current Visit: Yes Status: Acute Plan to address problem: Management as per cardiology. (3) Nephrotic syndrome Current Visit: Yes Status: Acute Plan to address problem: Management as per nephrology. Subjective Date of service: 09/29/18 Principal diagnosis: coffee-ground emesis Interval history: Patient receiving hemodialysis.Patient is on 4 litres o2. O2 saturation 98%. No acute respiratory distress. Objective Vital Signs - 12hr 09/29/18 09/29/18 12:05 17:55 Temperature 98.5 F 97.4 F L Pulse Rate 104 H 94 H Respiratory 24 24 Rate Blood Pressure 138/70 114/62 O2 Sat by Pulse 96 95 Oximetry Constitutional: no acute distress, alert Eyes: non-icteric ENT: oropharynx moist Neck: supple, no JVD Ascultation: Bilateral: diminished breath sounds Cardiovascular: regular rate and rhythm Gastrointestinal: normoactive bowel sounds, soft, non-tender Integumentary: normal Extremities: no cyanosis, no edema Neurologic: non-focal exam, pupils equal and round, CN II-XII normal Psychiatric: depressed CBC and BMP: 09/29/18 05:07 09/29/18 05:07 ABG, PT/INR, D-dimer: ABG POC ABG pH 7.375 (7.35-7.45) 09/23/18 15:06 POC ABG pCO2 36.3 (35-45) 09/23/18 15:06 POC ABG pO2 99 (80-105) 09/23/18 15:06 POC ABG HCO3 21.2 09/23/18 15:06 POC ABG Total CO2 22 09/23/18 15:06 POC ABG O2 Sat 98 09/23/18 15:06 PT/INR, D-dimer PT 12.7 Sec. (12.2-14.9) 09/26/18 Unknown INR 0.90 (0.87-1.13) 09/26/18 Unknown Abnormal lab findings: Abnormal Labs 09/17/18 09/17/18 09/17/18 15:17 15:17 15:17 WBC RBC 3.34 L Hgb 9.1 L Hct 27.9 L MCH 27 L RDW 20.5 H Plt Count Lymph % (Auto) [place] % (Auto) 8.8 H [place] # APTT 22.2 L Potassium Chloride 107.7 H BUN 37 H Creatinine 2.3 H Glucose Calcium 7.4 L Phosphorus Magnesium 2.60 H ALT Total Creatine Kinase NT-Pro-B Natriuret Pep 992.5 H Serum Total Protein Total Protein 4.1 L Albumin 1.3 L Gamma Globulins PEP Interpretation Urine WBC (Auto) Urine Creatinine Ur Creatinine 24 Hour Ur Total Protein 24 Hr Urine Total Protein Valproic Acid Crossmatch 09/17/18 09/18/18 09/18/18 17:18 05:22 05:22 WBC 4.4 L RBC 3.06 L Hgb 8.5 L Hct 25.5 L MCH RDW 20.0 H Plt Count Lymph % (Auto) 36.5 H [place] % (Auto) 12.3 H [place] # APTT Potassium Chloride 107.2 H BUN 37 H Creatinine 2.2 H Glucose Calcium 7.4 L Phosphorus Magnesium ALT 6 L Total Creatine Kinase NT-Pro-B Natriuret Pep Serum Total Protein Total Protein 3.9 L Albumin 1.4 L Gamma Globulins PEP Interpretation Urine WBC (Auto) 15.0 H Urine Creatinine Ur Creatinine 24 Hour Ur Total Protein 24 Hr Urine Total Protein Valproic Acid Crossmatch 09/18/18 09/19/18 09/19/18 10:30 05:45 05:45 WBC RBC Hgb Hct MCH RDW Plt Count Lymph % (Auto) [place] % (Auto) [place] # APTT Potassium Chloride BUN 37 H Creatinine 2.1 H Glucose Calcium 7.3 L Phosphorus Magnesium ALT Total Creatine Kinase NT-Pro-B Natriuret Pep Serum Total Protein 3.4 L Total Protein Albumin 1.2 L Gamma Globulins 0.5 L PEP Interpretation see below H Urine WBC (Auto) Urine Creatinine 147.5 H Ur Creatinine 24 Hour 0.7 L Ur Total Protein 24 Hr 1073.50 H Urine Total Protein 226 H Valproic Acid Crossmatch 09/20/18 09/20/18 09/21/18 04:56 15:15 06:13 WBC RBC 2.84 L Hgb 7.8 L Hct 24.1 L MCH 27 L RDW 19.8 H Plt Count Lymph % (Auto) [place] % (Auto) 12.9 H [place] # APTT Potassium 5.4 H 5.5 H Chloride 108.2 H BUN 38 H Creatinine 2.4 H Glucose Calcium 7.2 L Phosphorus Magnesium ALT Total Creatine Kinase NT-Pro-B Natriuret Pep Serum Total Protein Total Protein Albumin Gamma Globulins PEP Interpretation Urine WBC (Auto) Urine Creatinine Ur Creatinine 24 Hour Ur Total Protein 24 Hr Urine Total Protein Valproic Acid Crossmatch 09/21/18 09/21/18 09/22/18 06:13 07:00 10:12 WBC RBC Hgb Hct MCH RDW Plt Count Lymph % (Auto) [place] % (Auto) [place] # APTT Potassium 5.2 H Chloride 108.2 H 111.5 H BUN 39 H 40 H Creatinine 2.7 H 3.1 H Glucose Calcium 7.3 L 7.1 L Phosphorus Magnesium ALT Total Creatine Kinase NT-Pro-B Natriuret Pep Serum Total Protein Total Protein Albumin Gamma Globulins PEP Interpretation Urine WBC (Auto) Urine Creatinine 97.5 H Ur Creatinine 24 Hour Ur Total Protein 24 Hr Urine Total Protein 708 H Valproic Acid Crossmatch 09/23/18 09/25/18 09/25/18 04:40 07:30 07:30 WBC RBC 2.55 L Hgb 6.9 L Hct 21.5 L MCH 27 L RDW 19.5 H Plt Count Lymph % (Auto) [place] % (Auto) 12.2 H [place] # APTT Potassium Chloride 109.1 H BUN 42 H 33 H Creatinine 3.8 H 4.4 H Glucose 102 H Calcium 7.2 L 7.3 L Phosphorus 5.00 H Magnesium ALT Total Creatine Kinase NT-Pro-B Natriuret Pep Serum Total Protein Total Protein Albumin Gamma Globulins PEP Interpretation Urine WBC (Auto) Urine Creatinine Ur Creatinine 24 Hour Ur Total Protein 24 Hr Urine Total Protein Valproic Acid Crossmatch 09/26/18 09/26/18 09/26/18 07:17 07:17 07:17 WBC RBC Hgb 6.7 L Hct 20.0 L MCH RDW Plt Count Lymph % (Auto) [place] % (Auto) [place] # APTT Potassium Chloride BUN 24 H Creatinine 4.1 H Glucose Calcium 7.0 L Phosphorus Magnesium ALT Total Creatine Kinase 559 H NT-Pro-B Natriuret Pep Serum Total Protein Total Protein Albumin Gamma Globulins PEP Interpretation Urine WBC (Auto) Urine Creatinine Ur Creatinine 24 Hour Ur Total Protein 24 Hr Urine Total Protein Valproic Acid 13.2 L Crossmatch 09/26/18 09/27/18 09/27/18 Unknown 07:42 07:42 WBC RBC 2.16 L Hgb 6.0 L Hct 18.1 L* MCH RDW 18.9 H Plt Count 130 L Lymph % (Auto) [place] % (Auto) 15.8 H [place] # APTT 36.7 H Potassium Chloride 108.4 H BUN 26 H Creatinine 4.8 H Glucose Calcium 7.1 L Phosphorus 4.60 H Magnesium ALT Total Creatine Kinase NT-Pro-B Natriuret Pep Serum Total Protein Total Protein Albumin Gamma Globulins PEP Interpretation Urine WBC (Auto) Urine Creatinine Ur Creatinine 24 Hour Ur Total Protein 24 Hr Urine Total Protein Valproic Acid Crossmatch 09/27/18 09/28/18 09/29/18 10:43 04:43 05:07 WBC RBC 3.29 L 3.28 L Hgb 8.9 L 8.9 L Hct 27.2 L D 27.1 L MCH 27 L 27 L RDW 19.3 H 19.3 H Plt Count 130 L 133 L Lymph % (Auto) [place] % (Auto) 15.6 H [place] # 0.9 H APTT Potassium Chloride BUN Creatinine Glucose Calcium Phosphorus Magnesium ALT Total Creatine Kinase NT-Pro-B Natriuret Pep Serum Total Protein Total Protein Albumin Gamma Globulins PEP Interpretation Urine WBC (Auto) Urine Creatinine Ur Creatinine 24 Hour Ur Total Protein 24 Hr Urine Total Protein Valproic Acid Crossmatch See Detail 09/29/18 05:07 WBC RBC Hgb Hct MCH RDW Plt Count Lymph % (Auto) [place] % (Auto) [place] # APTT Potassium Chloride BUN 22 H Creatinine 5.4 H Glucose Calcium 7.1 L Phosphorus Magnesium ALT Total Creatine Kinase NT-Pro-B Natriuret Pep Serum Total Protein Total Protein Albumin Gamma Globulins PEP Interpretation Urine WBC (Auto) Urine Creatinine Ur Creatinine 24 Hour Ur Total Protein 24 Hr Urine Total Protein Valproic Acid Crossmatch Chest x-ray: report reviewed (Mild volume Over load. No evidence for pneumonia.), image reviewed
[2018-09-29] MEDS: BENADRYL PO SCH (21:11)
[2018-09-30] MEDS: HALDOL PO SCH ×2 (00:49→21:34)
[2018-09-30] MEDS: LOVENOX SUB-Q SCH ×2 (00:49→21:34)
[2018-09-30] MEDS: APRESOLINE PO SCH ×4 (00:49→21:40)
[2018-09-30] MEDS: SODIUM CHLORIDE FLUSH SYRINGE 10 ML IV SCH ×3 (00:50→21:35)
[2018-09-30] MEDS: LASIX PO SCH ×2 (06:18→17:05)
[2018-09-30] MEDS: PROTONIX IV SCH (10:06)
[2018-09-30] MEDS: TRIMOX PO SCH (10:06)
--- NOTE | 2018-09-30 10:45 | Progress Note ---
Assessment and Plan 1. Acute kidney injury: LUCILA related Nephrotic syndrome. Patient was started on hemodialysis on 09/24/2018 due to worsening renal function, anasarca and suspected pulmonary edema. Tolerated hemodialysis well. Last dialyzed yesterday. Patient has been refusing HD / Isolated UF intermittently. Plan to do HD tomorrow. 2. Nephrotic syndrome: Etiology includes FSGS, Minimal change, Membranous and Lupus nephritis. Complements, BI, ANCA, SPEP, GBM Ab, Hepatitis panel and HIV are negative. Made several attempts to do Kidney biospy but she refused. Patient is on Lovenox to prevent DVT. Continue Statin. Eventually she needs ACEI / ARB. 3. Volume overload: UF with HD. On Lasix. 4. Hyperkalemia: Improved. 5. HTN. 6. Anemia: Present on admission. S/p PRBC. Epogen with HD. 7. Schizophrenia. 8. Medical non-compliance. Per [place] outreach services patient dont have any adult relative. Subjective Date of service: 09/30/18 Principal diagnosis: coffee-ground emesis Interval history: Patient was seen and examined at the bedside. Doing ok. Objective - Vital Signs Vital signs: Vital Signs - 12hr 09/30/18 09/30/18 09/30/18 00:14 00:49 01:38 Temperature 98.4 F Pulse Rate 104 H 104 H Respiratory 20 Rate Blood Pressure 130/87 130/87 O2 Sat by Pulse 96 96 Oximetry 09/30/18 09/30/18 05:50 06:18 Temperature 98.3 F Pulse Rate 90 90 Respiratory 20 Rate Blood Pressure 154/87 154/87 O2 Sat by Pulse 98 Oximetry - General Appearance General appearance: well-developed, well-nourished, appears stated age, obese, other (not in distress, right IJ tunnel catheter) EENT: ATNC, PERRL, mucous membranes moist, hearing intact, vision intact Neck: supple Respiratory: Present: Clear to Ascultation Cardiology: regular, S1S2, no murmurs Gastrointestinal: normoactive bowel sounds, no tenderness, no distended Integumentary: no rash, warm and dry Neurologic: no focal deficit, no asterixis Musculoskeletal: other (2+ edema of both LEs noted) - Lab 09/29/18 05:07 09/29/18 05:07 Most recent lab results Calcium 7.1 mg/dL (8.4-10.2) L 09/29/18 05:07 Phosphorus 4.60 mg/dL (2.5-4.5) H 09/27/18 07:42 Magnesium 2.60 mg/dL (1.7-2.3) H 09/17/18 15:17 Urine Creatinine 97.5 mg/dL (0.1-20.0) H 09/21/18 07:00 Ur Total Protein 24 Hr 1073.50 mg/dL (2-200) H 09/18/18 10:30 Urine Sodium 53 mmol/L 09/21/18 07:00 Urine Total Protein 708 mg/dL (5-11.8) H 09/21/18 07:00 Medications & Allergies - Medications Allergies/Adverse Reactions: Allergies No Known Allergies Allergy (Unverified 09/17/18 15:05) Home Medications: Home Medications Medication Instructions Recorded Confirmed Last Taken Type Divalproex Sodium [Depakote] 500 mg PO BID 09/17/18 09/17/18 Unknown History Haldol (Nf) 09/17/18 Unknown History Invega Sustenna 09/17/18 Unknown History diphenhydrAMINE [Benadryl CAP] 50 mg PO HS 09/17/18 09/17/18 Unknown History Active Medications: Generic Name Dose Route Start Last Admin Trade Name Freq PRN Reason Stop Dose Admin Acetaminophen 650 mg 09/18/18 02:40 09/27/18 05:36 Tylenol PO 650 mg Q4H PRN Administration Pain MILD(1-3)/Fever >100.5/MENDOZA Amoxicillin 500 mg 09/28/18 13:00 09/30/18 10:06 Trimox PO 10/01/18 12:59 500 mg DAILY LUZ Administration Atorvastatin Calcium 40 mg 09/18/18 22:00 09/30/18 00:49 Lipitor PO 40 mg QHS LUZ Administration Diphenhydramine HCl 50 mg 09/18/18 22:00 09/29/18 21:11 Benadryl PO 50 mg HS LUZ Administration Divalproex Sodium 500 mg 09/18/18 10:00 09/30/18 10:[address] PO 500 mg BID LUZ Administration Enoxaparin Sodium 30 mg 09/20/18 22:00 09/30/18 00:49 Lovenox SUB-Q 30 mg QDAY@2200 LUZ Administration Epoetin Luis 20,000 unit 09/26/18 12:23 09/28/18 22:15 Procrit SUB-Q 20,000 unit KUSHAL PRN Administration hemodialysis Furosemide 80 mg 09/29/18 06:00 09/30/18 06:18 Lasix PO 80 mg 0600,1800 LUZ Administration Haloperidol 5 mg 09/25/18 22:00 09/30/18 00:49 Haldol PO 5 mg HS LUZ Administration Hydralazine HCl 10 mg 09/22/18 06:28 09/22/18 12:12 Apresoline IV 10 mg Q4H PRN Administration systolic b/p >165 Hydralazine HCl 50 mg 09/22/18 14:00 09/30/18 06:18 Apresoline PO 50 mg Q8HR LUZ Administration Hydromorphone HCl 0.5 mg 09/18/18 02:40 Dilaudid IV Q3H PRN Pain , Severe (7-10) Sodium Chloride 100 mls @ 999 mls/hr 09/29/18 09:16 Nacl 0.9% IV KUSHAL PRN Hypotension Ondansetron HCl 4 mg 09/18/18 02:40 09/23/18 08:45 Zofran IV 4 mg Q8H PRN Administration Nausea And Vomiting Oxycodone/Acetaminophen 1 tab 09/18/18 02:40 09/28/18 23:56 Percocet 5/325 PO 1 tab Q6H PRN Administration Pain, Moderate (4-6) Pantoprazole Sodium 40 mg 09/27/18 12:00 09/30/18 10:06 Protonix IV 40 mg DAILY LUZ Administration Sodium Chloride 10 ml 09/18/18 10:00 09/30/18 10:07 Sodium Chloride Flush Syringe 10 Ml IV 10 ml BID LUZ Administration Sodium Chloride 10 ml 09/18/18 02:40 Sodium Chloride Flush Syringe 10 Ml IV PRN PRN LINE FLUSH
--- NOTE | 2018-09-30 16:20 | Progress Note ---
Assessment and Plan Assessment and plan: Patient is a 47 yo woman with a history of Obesity, HTN and Schizophrenia who presented to the ER with bilateral leg swelling, SOB and increase in the abdominal girth and weight gain of ~86 pounds in 10 weeks. Patient denies any h/o heart disease or Liver problem. Labs were significant for creatinine of 2.2, Hb 8.5, albumin 1.4 and 3+ protein in the urine. Patient was admitted with provisional diagnosis of Nephrotic syndrome. Nephrology was consulted for further evaluation and recommended Kidney biopsy; which patient refused on multiple occasions so Radiology declined to re-schedule the procedure. Also, During hospital coarse, she was found to have coffee ground emesis and EGD was done on 09/26/18 and showed M-W tear. Her hemoglobin was steadily dropping and she initially refused blood transfusion until Mr. Galeas convinced her to get the blood transfusion and do Hemodialysis which she refuses at times. 09/26/18 EGD Pre-op diagnosis: gi bleed Post-op diagnosis: same Findings: EGD: large hiatal hernia - m-w tear with pigmented area jut above g-e junction - mild gastritis - negative other Procedure: EGD =Nephrotic syndrome. Urine protein quantification pending. Follow BI, ANCA and complements. Renal ultrasound negative. Patient unfortunately refused kidney biopsy. =Coffee-ground emesis with Radha Mendez Tear. GI consulted H&H dropped and she refused blood transfusion today. =Acute on chronic Blood loss anemia due to above =Right lower extremity thigh pain. Doppler lower extremities bilaterally negative for DVT =Left breast swelling, unknown at present. Need outpatient Mammogram and U/S =Morbid obesity, bmi 55.2: lifestyle modification =Medical noncompliance. Patient intermittently at times refusing care. Psych/Mik told me she has decision making capacity. =Schizophrenia, Bipolar disorder. Continue current medications.. As above. Psych consulted =Hyperkalemia. Kayexalate. Recheck BMP in the morning. =Sepsis. Left lower lobe pneumonia. Present on admission. Continue IV antibioti cs. Etiology secondary to pneumonia and UTI. =ARF, vasomotor nephropathy, poa =VRE: ID is following, ordered isolation Patient is apart of [place] re[facility] Outreach and ACT Team, call, psychiatrist Dr. Tatum @ [phone] and If Dr. Tatum is not available, call coordinator of care, Rao Gudelia [phone]. Disposition: continue inpatient care, needs HD dialysis setup and new placement. Radiology has refused to re-schedule the Kidney biopsy because they have tired 3 times and pt refuses. History Interval history: Patient was seen and examined. Follow-up on current diagnosis of GIB. Overnight uneventful. Patient denies any chest pain, shortness breath, nausea/vomiting or severe headaches. Imaging, nursing note, chart, labs and old chart reviewed. Discussed with patient. Hospitalist Physical - Physical exam Narrative exam: Patient Refused exam today because she had an accident with stool, I notified charge nurse - Constitutional Vitals: Temp Pulse Resp BP Pulse Ox 97.8 F 105 H 18 127/65 99 09/30/18 12:24 09/30/18 12:24 09/30/18 12:24 09/30/18 12:24 09/30/18 12:24 General appearance: Present: no acute distress, obese Results - Labs CBC & Chem 7: 09/29/18 05:07 09/29/18 05:07 Labs: Laboratory Last Values WBC 6.0 K/mm3 (4.5-11.0) 09/29/18 05:07 RBC 3.28 M/mm3 (3.65-5.03) L 09/29/18 05:07 Hgb 8.9 gm/dl (10.1-14.3) L 09/29/18 05:07 Hct 27.1 % (30.3-42.9) L 09/29/18 05:07 MCV 83 fl (79-97) 09/29/18 05:07 MCH 27 pg (28-32) L 09/29/18 05:07 MCHC 33 % (30-34) 09/29/18 05:07 RDW 19.3 % (13.2-15.2) H 09/29/18 05:07 Plt Count 133 K/mm3 (140-440) L 09/29/18 05:07 Lymph % (Auto) 24.2 % (13.4-35.0) 09/29/18 05:07 [place] % (Auto) 15.6 % (0.0-7.3) H 09/29/18 05:07 Eos % (Auto) 1.7 % (0.0-4.3) 09/29/18 05:07 Baso % (Auto) 0.3 % (0.0-1.8) 09/29/18 05:07 Lymph # 1.4 K/mm3 (1.2-5.4) 09/29/18 05:07 [place] # 0.9 K/mm3 (0.0-0.8) H 09/29/18 05:07 Eos # 0.1 K/mm3 (0.0-0.4) 09/29/18 05:07 Baso # 0.0 K/mm3 (0.0-0.1) 09/29/18 05:07 Seg Neutrophils % 58.2 % (40.0-70.0) 09/29/18 05:07 Seg Neutrophils # 3.5 K/mm3 (1.8-7.7) 09/29/18 05:07 PT 12.7 Sec. (12.2-14.9) 09/26/18 Unknown INR 0.90 (0.87-1.13) 09/26/18 Unknown APTT 36.7 Sec. (24.2-36.6) H 09/26/18 Unknown POC ABG pH 7.375 (7.35-7.45) 09/23/18 15:06 POC ABG pCO2 36.3 (35-45) 09/23/18 15:06 POC ABG pO2 99 (80-105) 09/23/18 15:06 POC ABG HCO3 21.2 09/23/18 15:06 POC ABG Total CO2 22 09/23/18 15:06 POC ABG O2 Sat 98 09/23/18 15:06 POC ABG Base Excess -4 09/23/18 15:06 FiO2 2 % 09/23/18 15:06 Sodium 141 mmol/L (137-145) 09/29/18 05:07 Potassium 4.4 mmol/L (3.6-5.0) 09/29/18 05:07 Chloride 104.3 mmol/L (98-107) 09/29/18 05:07 Carbon Dioxide 28 mmol/L (22-30) 09/29/18 05:07 Anion Gap 13 mmol/L 09/29/18 05:07 BUN 22 mg/dL (7-17) H 09/29/18 05:07 Creatinine 5.4 mg/dL (0.7-1.2) H 09/29/18 05:07 Estimated GFR 10 ml/min 09/29/18 05:07 BUN/Creatinine Ratio 4 % 09/29/18 05:07 Glucose 86 mg/dL (65-100) 09/29/18 05:07 Calcium 7.1 mg/dL (8.4-10.2) L 09/29/18 05:07 Phosphorus 4.60 mg/dL (2.5-4.5) H 09/27/18 07:42 Magnesium 2.60 mg/dL (1.7-2.3) H 09/17/18 15:17 Total Bilirubin < 0.20 mg/dL (0.1-1.2) 09/18/18 05:22 AST 13 units/L (5-40) 09/18/18 05:22 ALT 6 units/L (7-56) L 09/18/18 05:22 Alkaline Phosphatase 51 units/L (35-129) 09/18/18 05:22 Total Creatine Kinase 559 units/L (30-135) H 09/26/18 07:17 Troponin T 0.012 ng/mL (0.00-0.029) 09/17/18 15:17 NT-Pro-B Natriuret Pep 992.5 pg/mL (0-450) H 09/17/18 15:17 Serum Total Protein 3.4 g/dL (6.1-8.1) L 09/19/18 05:45 Total Protein 3.9 g/dL (6.3-8.2) L 09/18/18 05:22 Albumin 1.2 g/dL (3.8-4.8) L 09/19/18 05:45 Albumin/Globulin Ratio 0.6 % 09/18/18 05:22 Venju-2-Brpxmuyrf 0.3 g/dL (0.2-0.3) 09/19/18 05:45 Lsxjr-5-Jltmfutfy 0.8 g/dL (0.5-0.9) 09/19/18 05:45 Beta Globulins 0.4 g/dL (0.2-0.5) 09/19/18 05:45 Gamma Globulins 0.5 g/dL (0.8-1.7) L 09/19/18 05:45 Abnorm Protein Band 1 see below 09/19/18 05:45 PEP Interpretation see below H 09/19/18 05:45 Amylase 53 units/L (27-131) 09/25/18 13:53 Lipase 48 units/L (13-60) 09/25/18 13:53 HCG, Qual Negative (Negative) 09/25/18 13:53 PTH Intact 46.07 pg/mL (15-65) 09/19/18 05:45 Urine Color Yellow (Yellow) 09/17/18 17:18 Urine Turbidity Cloudy (Clear) 09/17/18 17:18 Urine pH 5.0 (5.0-7.0) 09/17/18 17:18 Ur Specific [place] 1.029 (1.003-1.030) 09/17/18 17:18 Urine Protein >500 mg/dL (Negative) 09/17/18 17:18 Urine Glucose (UA) Neg mg/dL (Negative) 09/17/18 17:18 Urine Ketones Tr mg/dL (Negative) 09/17/18 17:18 Urine Blood Sm (Negative) 09/17/18 17:18 Urine Nitrite Neg (Negative) 09/17/18 17:18 Urine Bilirubin Neg (Negative) 09/17/18 17:18 Urine Urobilinogen < 2.0 mg/dL (<2.0) 09/17/18 17:18 Ur Leukocyte Esterase Neg (Negative) 09/17/18 17:18 Urine WBC (Auto) 15.0 /HPF (0.0-6.0) H 09/17/18 17:18 Urine RBC (Auto) 13.0 /HPF (0.0-6.0) 09/17/18 17:18 U Epithel Cells (Auto) 6.0 /HPF (0-13.0) 09/17/18 17:18 Urine Bacteria (Auto) 2+ /HPF (Negative) 09/17/18 17:18 Urine WBC Clumps 2+ /HPF 09/17/18 17:18 Hyaline Casts 6 /LPF 09/17/18 17:18 Urine Mucus Few /HPF 09/17/18 17:18 Urine Yeast (Budding) 2+ /HPF 09/17/18 17:18 Urine Eosinophils None seen (None Seen) 09/18/18 10:30 Urine Total Volume 475 ml 09/18/18 10:30 Urine Creatinine 97.5 mg/dL (0.1-20.0) H 09/21/18 07:00 Ur Creatinine 24 Hour 0.7 (0.8-2.8) L 09/18/18 10:30 Ur Total Protein 24 Hr 1073.50 mg/dL (2-200) H 09/18/18 10:30 Protein/Creatinin Ratio 7.26 09/21/18 07:00 Urine Sodium 53 mmol/L 09/21/18 07:00 Urine Urea Nitrogen 467 09/18/18 10:30 Ur Urea Nitrogen 24 Hr 2.22 09/18/18 10:30 Urine Total Protein 708 mg/dL (5-11.8) H 09/21/18 07:00 Urine Opiates Screen Presumptive negative 09/17/18 17:18 Urine Methadone Screen Presumptive negative 09/17/18 17:18 Ur Barbiturates Screen Presumptive negative 09/17/18 17:18 Valproic Acid 13.2 ug/mL (50-100) L 09/26/18 07:17 Ur Phencyclidine Scrn Presumptive negative 09/17/18 17:18 Ur Amphetamines Screen Presumptive negative 09/17/18 17:18 U Benzodiazepines Scrn Presumptive negative 09/17/18 17:18 Urine Cocaine Screen Presumptive negative 09/17/18 17:18 U Marijuana (THC) Screen Presumptive negative 09/17/18 17:18 Drugs of Abuse Note Disclamer 09/17/18 17:18 BI Screen Negative (Negative) 09/19/18 05:45 Proteinase 3 (PR3) Ab <1.0 AI (<1.0) 09/19/18 05:45 Myeloperoxidase Ab <1.0 AI (<1.0) 09/19/18 05:45 Glomerular Base Mem IgG See scanned result 09/19/18 05:45 Complement C3 143 mg/dL (83-193) 09/19/18 05:45 Complement C4 56 mg/dL (15-57) 09/19/18 05:45 Hepatitis A IgM Ab Non-reactive (NonReactive) 09/19/18 05:45 Hep Bs Antigen Non-reactive (Negative) 09/19/18 05:45 Hep B Core IgM Ab Non-reactive (NonReactive) 09/19/18 05:45 Hepatitis C Antibody Non-reactive (NonReactive) 09/19/18 05:45 HIV 1&2 Antibody Rapid Non react (Non React) 09/27/18 07:42 HIV P24 Antigen Non react (Non React) 09/27/18 07:42 Blood Type O POSITIVE 09/27/18 10:43 Antibody Screen Negative 09/27/18 10:43 Crossmatch See Detail 09/27/18 10:43 Nutrition/Malnutrition Assess - Dietary Evaluation Nutrition/Malnutrition Findings: Nutrition Notes Start: 09/24/18 15:36 Freq: Status: Active Protocol: Document 09/28/18 16:43 RM (Rec: 09/28/18 16:53 RM [id number]) Nutrition Notes Initial or Follow up Reassessment Current Diagnosis Sepsis Other Pertinent Diagnosis Schizophrenia,Nephrotic syndrome,UTI,Pneu,Coffee ground emesis, on HD Current Diet GI soft Labs/Tests Reviewed Pertinent Medications Reviewed Height 5 ft 6 in Weight 147.8 kg [place] Body Weight (kg) 59.09 BMI 52.6 Subjective/Other Information Pt stated that her appetite is good and that she eats all of her meals. Noted lunch at bedside w/most eaten. Percent of energy/protein needs met: 93%/100% Burn Absent Trauma Absent #1 Nutrition Diagnosis Inadequate oral intake As Evidenced by Signs and Symptoms pt meeting 93% of calorie and 100% of protein needs Diagnosis Progress(for reassessment Resolved documentation) Is patient on ventilator? No Is Patient Ambulatory and/or Out of Bed Yes REE-([facility]-ambulatory/OOB) [ 2775.175 [id number]] Kcal/Kg value to use for calculation 15 Approximate Energy Requirements Using 2217 kcal/Kg Calculation Used for Recommendations Kcal/kg Additional Notes Protein Needs: 71-77g (1.2-1. 3g/kg IBW) Fluid Needs: 1 ml/kcal Nutrition Intervention Change Diet Order: GI soft,Renal Goal #1 Continue to meet at least 75% of calorie and protein needs via PO intakes Anticipated Discharge Needs: Unable to determine at this time Follow-Up By: 10/02/18 Additional Comments Follow for PO and ONS intakes
[2018-09-30] MEDS: BENADRYL PO SCH (21:34)
--- NOTE | 2018-09-30 22:00 | Progress Note ---
Assessment and Plan Patient resting on 2 litres O2..Patient is on 2 litres o2. O2 saturation 98%. No acute respiratory distress. - Patient Problems (1) Pneumonia involving left lung Current Visit: Yes Status: Acute Plan to address problem: Patient is on Amoxicillin. (2) Acute exacerbation of congestive heart failure Current Visit: Yes Status: Acute Plan to address problem: Management as per cardiology. (3) Nephrotic syndrome Current Visit: Yes Status: Acute Plan to address problem: Management as per nephrology. Subjective Date of service: 09/30/18 Principal diagnosis: coffee-ground emesis Interval history: Patient resting on 2 litres O2..Patient is on 2 litres o2. O2 saturation 98%. No acute respiratory distress. Objective Vital Signs - 12hr 09/30/18 09/30/18 09/30/18 12:16 12:24 21:40 Temperature 98.1 F 97.8 F Pulse Rate 100 H 105 H 109 H Respiratory 20 18 Rate Blood Pressure 126/79 127/65 142/88 O2 Sat by Pulse 94 99 Oximetry Constitutional: no acute distress, alert Eyes: non-icteric ENT: oropharynx moist Neck: supple, no JVD Ascultation: Bilateral: diminished breath sounds Cardiovascular: regular rate and rhythm Gastrointestinal: normoactive bowel sounds, soft, non-tender Integumentary: normal Extremities: no cyanosis, no edema Neurologic: non-focal exam, pupils equal and round, CN II-XII normal Psychiatric: depressed CBC and BMP: 09/29/18 05:07 09/29/18 05:07 ABG, PT/INR, D-dimer: ABG POC ABG pH 7.375 (7.35-7.45) 09/23/18 15:06 POC ABG pCO2 36.3 (35-45) 09/23/18 15:06 POC ABG pO2 99 (80-105) 09/23/18 15:06 POC ABG HCO3 21.2 09/23/18 15:06 POC ABG Total CO2 22 09/23/18 15:06 POC ABG O2 Sat 98 09/23/18 15:06 PT/INR, D-dimer PT 12.7 Sec. (12.2-14.9) 09/26/18 Unknown INR 0.90 (0.87-1.13) 09/26/18 Unknown Abnormal lab findings: Abnormal Labs 09/17/18 09/17/18 09/17/18 15:17 15:17 15:17 WBC RBC 3.34 L Hgb 9.1 L Hct 27.9 L MCH 27 L RDW 20.5 H Plt Count Lymph % (Auto) [place] % (Auto) 8.8 H [place] # APTT 22.2 L Potassium Chloride 107.7 H BUN 37 H Creatinine 2.3 H Glucose Calcium 7.4 L Phosphorus Magnesium 2.60 H ALT Total Creatine Kinase NT-Pro-B Natriuret Pep 992.5 H Serum Total Protein Total Protein 4.1 L Albumin 1.3 L Gamma Globulins PEP Interpretation Urine WBC (Auto) Urine Creatinine Ur Creatinine 24 Hour Ur Total Protein 24 Hr Urine Total Protein Valproic Acid Crossmatch 09/17/18 09/18/18 09/18/18 17:18 05:22 05:22 WBC 4.4 L RBC 3.06 L Hgb 8.5 L Hct 25.5 L MCH RDW 20.0 H Plt Count Lymph % (Auto) 36.5 H [place] % (Auto) 12.3 H [place] # APTT Potassium Chloride 107.2 H BUN 37 H Creatinine 2.2 H Glucose Calcium 7.4 L Phosphorus Magnesium ALT 6 L Total Creatine Kinase NT-Pro-B Natriuret Pep Serum Total Protein Total Protein 3.9 L Albumin 1.4 L Gamma Globulins PEP Interpretation Urine WBC (Auto) 15.0 H Urine Creatinine Ur Creatinine 24 Hour Ur Total Protein 24 Hr Urine Total Protein Valproic Acid Crossmatch 09/18/18 09/19/18 09/19/18 10:30 05:45 05:45 WBC RBC Hgb Hct MCH RDW Plt Count Lymph % (Auto) [place] % (Auto) [place] # APTT Potassium Chloride BUN 37 H Creatinine 2.1 H Glucose Calcium 7.3 L Phosphorus Magnesium ALT Total Creatine Kinase NT-Pro-B Natriuret Pep Serum Total Protein 3.4 L Total Protein Albumin 1.2 L Gamma Globulins 0.5 L PEP Interpretation see below H Urine WBC (Auto) Urine Creatinine 147.5 H Ur Creatinine 24 Hour 0.7 L Ur Total Protein 24 Hr 1073.50 H Urine Total Protein 226 H Valproic Acid Crossmatch 09/20/18 09/20/18 09/21/18 04:56 15:15 06:13 WBC RBC 2.84 L Hgb 7.8 L Hct 24.1 L MCH 27 L RDW 19.8 H Plt Count Lymph % (Auto) [place] % (Auto) 12.9 H [place] # APTT Potassium 5.4 H 5.5 H Chloride 108.2 H BUN 38 H Creatinine 2.4 H Glucose Calcium 7.2 L Phosphorus Magnesium ALT Total Creatine Kinase NT-Pro-B Natriuret Pep Serum Total Protein Total Protein Albumin Gamma Globulins PEP Interpretation Urine WBC (Auto) Urine Creatinine Ur Creatinine 24 Hour Ur Total Protein 24 Hr Urine Total Protein Valproic Acid Crossmatch 09/21/18 09/21/18 09/22/18 06:13 07:00 10:12 WBC RBC Hgb Hct MCH RDW Plt Count Lymph % (Auto) [place] % (Auto) [place] # APTT Potassium 5.2 H Chloride 108.2 H 111.5 H BUN 39 H 40 H Creatinine 2.7 H 3.1 H Glucose Calcium 7.3 L 7.1 L Phosphorus Magnesium ALT Total Creatine Kinase NT-Pro-B Natriuret Pep Serum Total Protein Total Protein Albumin Gamma Globulins PEP Interpretation Urine WBC (Auto) Urine Creatinine 97.5 H Ur Creatinine 24 Hour Ur Total Protein 24 Hr Urine Total Protein 708 H Valproic Acid Crossmatch 09/23/18 09/25/18 09/25/18 04:40 07:30 07:30 WBC RBC 2.55 L Hgb 6.9 L Hct 21.5 L MCH 27 L RDW 19.5 H Plt Count Lymph % (Auto) [place] % (Auto) 12.2 H [place] # APTT Potassium Chloride 109.1 H BUN 42 H 33 H Creatinine 3.8 H 4.4 H Glucose 102 H Calcium 7.2 L 7.3 L Phosphorus 5.00 H Magnesium ALT Total Creatine Kinase NT-Pro-B Natriuret Pep Serum Total Protein Total Protein Albumin Gamma Globulins PEP Interpretation Urine WBC (Auto) Urine Creatinine Ur Creatinine 24 Hour Ur Total Protein 24 Hr Urine Total Protein Valproic Acid Crossmatch 09/26/18 09/26/18 09/26/18 07:17 07:17 07:17 WBC RBC Hgb 6.7 L Hct 20.0 L MCH RDW Plt Count Lymph % (Auto) [place] % (Auto) [place] # APTT Potassium Chloride BUN 24 H Creatinine 4.1 H Glucose Calcium 7.0 L Phosphorus Magnesium ALT Total Creatine Kinase 559 H NT-Pro-B Natriuret Pep Serum Total Protein Total Protein Albumin Gamma Globulins PEP Interpretation Urine WBC (Auto) Urine Creatinine Ur Creatinine 24 Hour Ur Total Protein 24 Hr Urine Total Protein Valproic Acid 13.2 L Crossmatch 09/26/18 09/27/18 09/27/18 Unknown 07:42 07:42 WBC RBC 2.16 L Hgb 6.0 L Hct 18.1 L* MCH RDW 18.9 H Plt Count 130 L Lymph % (Auto) [place] % (Auto) 15.8 H [place] # APTT 36.7 H Potassium Chloride 108.4 H BUN 26 H Creatinine 4.8 H Glucose Calcium 7.1 L Phosphorus 4.60 H Magnesium ALT Total Creatine Kinase NT-Pro-B Natriuret Pep Serum Total Protein Total Protein Albumin Gamma Globulins PEP Interpretation Urine WBC (Auto) Urine Creatinine Ur Creatinine 24 Hour Ur Total Protein 24 Hr Urine Total Protein Valproic Acid Crossmatch 09/27/18 09/28/18 09/29/18 10:43 04:43 05:07 WBC RBC 3.29 L 3.28 L Hgb 8.9 L 8.9 L Hct 27.2 L D 27.1 L MCH 27 L 27 L RDW 19.3 H 19.3 H Plt Count 130 L 133 L Lymph % (Auto) [place] % (Auto) 15.6 H [place] # 0.9 H APTT Potassium Chloride BUN Creatinine Glucose Calcium Phosphorus Magnesium ALT Total Creatine Kinase NT-Pro-B Natriuret Pep Serum Total Protein Total Protein Albumin Gamma Globulins PEP Interpretation Urine WBC (Auto) Urine Creatinine Ur Creatinine 24 Hour Ur Total Protein 24 Hr Urine Total Protein Valproic Acid Crossmatch See Detail 09/29/18 05:07 WBC RBC Hgb Hct MCH RDW Plt Count Lymph % (Auto) [place] % (Auto) [place] # APTT Potassium Chloride BUN 22 H Creatinine 5.4 H Glucose Calcium 7.1 L Phosphorus Magnesium ALT Total Creatine Kinase NT-Pro-B Natriuret Pep Serum Total Protein Total Protein Albumin Gamma Globulins PEP Interpretation Urine WBC (Auto) Urine Creatinine Ur Creatinine 24 Hour Ur Total Protein 24 Hr Urine Total Protein Valproic Acid Crossmatch
[2018-10-01] MEDS: LASIX PO SCH ×2 (06:27→17:37)
[2018-10-01] MEDS: APRESOLINE PO SCH ×3 (06:27→23:55)
[2018-10-01 07:30] LABS: Hematocrit 26.2 % (30.3-42.9); Hemoglobin 8.6 gm/dl (10.1-14.3); Mean Corpuscular HGB Conc 33 % (30-34); Mean Corpuscular Volume 83 fl (79-97); Platelet Count 144 K/mm3 (140-440); Red Blood Count 3.18 M/mm3 (3.65-5.03); Red Cell Distribution Width 19.3 % (13.2-15.2)
[2018-10-01 07:47] LABS: Calcium 7.1 mg/dL (8.4-10.2)
[2018-10-01] MEDS ORDERED: NACL 0.9% 100 ML IV PRN (08:00)
--- NOTE | 2018-10-01 08:02 | Progress Note ---
Assessment and Plan 1. Acute kidney injury: LUCILA likely related Nephrotic syndrome. Patient was started on hemodialysis on 09/24/2018 due to worsening renal function, anasarca and suspected pulmonary edema. Tolerated hemodialysis well. Last dialyzed 2 days ago. Patient has been refusing HD / Isolated UF intermittently. Plan to do HD today. 2. Nephrotic syndrome: Etiology includes FSGS, Minimal change, Membranous and Lupus nephritis. Complements, BI, ANCA, SPEP, GBM Ab, Hepatitis panel and HIV are negative. Made several attempts to do Kidney biospy but she refused. Patient is on Lovenox to prevent DVT. Continue Statin. Eventually she needs ACEI / ARB. 3. FEN: Volume overload, UF with HD. On Lasix. Hyperkalemia, improved. 4. VRE bacteriuria. 5. HTN. 6. Anemia: Present on admission. S/p PRBC. Epogen with HD. 7. Schizophrenia. 8. Medical non-compliance. Await outpatient HD chair. Subjective Date of service: 10/01/18 Principal diagnosis: coffee-ground emesis Interval history: Patient was seen and examined at the bedside. Doing ok. Objective - Vital Signs Vital signs: Vital Signs - 12hr 09/30/18 10/01/18 10/01/18 21:40 05:12 06:27 Temperature 98.4 F 98.5 F Pulse Rate 107 H 96 H 96 H Respiratory 20 20 Rate Blood Pressure 142/88 140/71 140/71 O2 Sat by Pulse 98 98 Oximetry - General Appearance General appearance: well-developed, well-nourished, appears stated age, other (not in distress, right IJ tunnel catheter) EENT: ATNC, PERRL Neck: supple Respiratory: Present: Clear to Ascultation Cardiology: regular, S1S2, no murmurs Gastrointestinal: normoactive bowel sounds, no tenderness, no distended, obese Integumentary: no rash, warm and dry Neurologic: no focal deficit, no asterixis, alert and oriented x3 Musculoskeletal: other (2+ edema of both LEs noted) - Lab 10/01/18 06:16 10/01/18 06:16 Most recent lab results Calcium 7.1 mg/dL (8.4-10.2) L 10/01/18 06:16 Phosphorus 4.60 mg/dL (2.5-4.5) H 09/27/18 07:42 Magnesium 2.60 mg/dL (1.7-2.3) H 09/17/18 15:17 Urine Creatinine 97.5 mg/dL (0.1-20.0) H 09/21/18 07:00 Ur Total Protein 24 Hr 1073.50 mg/dL (2-200) H 09/18/18 10:30 Urine Sodium 53 mmol/L 09/21/18 07:00 Urine Total Protein 708 mg/dL (5-11.8) H 09/21/18 07:00 Medications & Allergies - Medications Allergies/Adverse Reactions: Allergies No Known Allergies Allergy (Unverified 09/17/18 15:05) Home Medications: Home Medications Medication Instructions Recorded Confirmed Last Taken Type Divalproex Sodium [Depakote] 500 mg PO BID 09/17/18 09/17/18 Unknown History Haldol (Nf) 09/17/18 Unknown History Invega Sustenna 09/17/18 Unknown History diphenhydrAMINE [Benadryl CAP] 50 mg PO HS 09/17/18 09/17/18 Unknown History Active Medications: Generic Name Dose Route Start Last Admin Trade Name Freq PRN Reason Stop Dose Admin Acetaminophen 650 mg 09/18/18 02:40 09/27/18 05:36 Tylenol PO 650 mg Q4H PRN Administration Pain MILD(1-3)/Fever >100.5/MENDOZA Amoxicillin 500 mg 09/28/18 13:00 09/30/18 10:06 Trimox PO 10/01/18 12:59 500 mg DAILY LUZ Administration Atorvastatin Calcium 40 mg 09/18/18 22:00 09/30/18 21:34 Lipitor PO 40 mg QHS LUZ Administration Diphenhydramine HCl 50 mg 09/18/18 22:00 09/30/18 21:34 Benadryl PO 50 mg HS LUZ Administration Divalproex Sodium 500 mg 09/18/18 10:00 09/30/18 21:[address] PO 500 mg BID LUZ Administration Enoxaparin Sodium 30 mg 09/20/18 22:00 09/30/18 21:34 Lovenox SUB-Q 30 mg QDAY@2200 LUZ Administration Epoetin Luis 20,000 unit 09/26/18 12:23 09/28/18 22:15 Procrit SUB-Q 20,000 unit KUSHAL PRN Administration hemodialysis Furosemide 80 mg 09/29/18 06:00 10/01/18 06:27 Lasix PO 80 mg 0600,1800 LUZ Administration Haloperidol 5 mg 09/25/18 22:00 09/30/18 21:34 Haldol PO 5 mg HS LUZ Administration Hydralazine HCl 10 mg 09/22/18 06:28 09/22/18 12:12 Apresoline IV 10 mg Q4H PRN Administration systolic b/p >165 Hydralazine HCl 50 mg 09/22/18 14:00 10/01/18 06:27 Apresoline PO 50 mg Q8HR LUZ Administration Hydromorphone HCl 0.5 mg 09/18/18 02:40 Dilaudid IV Q3H PRN Pain , Severe (7-10) Sodium Chloride 100 mls @ 999 mls/hr 09/29/18 09:16 Nacl 0.9% IV KUSHAL PRN Hypotension Sodium Chloride 100 mls @ 999 mls/hr 10/01/18 08:00 Nacl 0.9% IV KUSHAL PRN Hypotension Ondansetron HCl 4 mg 09/18/18 02:40 09/23/18 08:45 Zofran IV 4 mg Q8H PRN Administration Nausea And Vomiting Oxycodone/Acetaminophen 1 tab 09/18/18 02:40 09/28/18 23:56 Percocet 5/325 PO 1 tab Q6H PRN Administration Pain, Moderate (4-6) Pantoprazole Sodium 40 mg 09/27/18 12:00 09/30/18 10:06 Protonix IV 40 mg DAILY LUZ Administration Sodium Chloride 10 ml 09/18/18 10:00 09/30/18 21:35 Sodium Chloride Flush Syringe 10 Ml IV 10 ml BID LUZ Administration Sodium Chloride 10 ml 09/18/18 02:40 Sodium Chloride Flush Syringe 10 Ml IV PRN PRN LINE FLUSH
--- NOTE | 2018-10-01 09:17 | Progress Note ---
Assessment and Plan Cultures: 09/20/2018 and blood culture: No growth 09/21/2018 urine culture: 10K - 100K Enterococcus faecium (VRE) A/P: 47-year-old female with hypertension, obesity, schizophrenia presented to the emergency room on 09/17/2018 with complaints of worsening bilateral leg swelling, shortness of breath and weight gain. She was noted to have elevated creatinine with nephrotic range proteinuria. Also with: 1) VRE UTI versus asymptomatic bacteriuria: Patient without any symptoms, UA with mild pyuria of 15 WBC. Could be contaminant as well. Not clinically concerning for pyelonephritis. At most, possible cystitis. Considering that she has nephrotic syndrome and possibly some immune compromise related to that, can treat with PO Amoxicillin x 3 days. Aminopenicillins concentrate very well in the urinary tract and overcome resistant Enterococcus. 2) Acute renal failure: with nephrotic syndrome. on HD now. Nephrology following. HIV non reactive. BI, C3, C4, ANCA negative. Renally dose abx. 3) Morbid obesity 4) Anemia, mild thrombocytopenia Recs: PO Amoxicillin 500 mg daily, D3 of D3. last dose today Continue contact isolation due to VRE Clinically stable, ID is signing off d/w Dr. Lidia Knott, [facility] M: [phone] O:[phone] Subjective Date of service: 10/01/18 Principal diagnosis: coffee-ground emesis Interval history: Patient seen and examined. Conversation limited, nodded head to questions. No acute distress observed. Objective - Exam Narrative Exam: Constitutional: Awake, alert. conversation limited. No acute distress. Obese Head, Ears, Nose: Normocephalic, atraumatic. External ears, nose normal Eyes: Conjunctivae/corneas clear. No icterus. No ptosis. Neck: Supple, no meningeal signs Oral: no thrush Cardiovascular: S1, S2 normal. Respiratory: Good air entry, clear to auscultation bilaterally GI: Soft, non-tender; bowel sounds normal. No peritoneal signs. No suprapubic or CVA tenderness Musculoskeletal: 2+ pedal edema, no cyanosis. Skin: No rash or abscess Hem/Lymphatic: No palpable cervical or supraclavicular nodes. No lymphangitis Psych: Mood ok. Affect flat Neurological: Awake, alert, oriented. No gross abnormality Lines: HD Cath + - Constitutional Vitals: Vital Signs Temp Pulse Resp BP Pulse Ox 98.5 F 96 H 20 140/71 98 10/01/18 05:12 10/01/18 06:27 10/01/18 05:12 10/01/18 06:27 10/01/18 05:12 Temperature -Last 24 Hours Temperature 98.5 F Temperature 98.4 F Temperature 98.2 F Temperature 97.8 F Temperature 98.1 F - Labs CBC & Chem 7: 10/01/18 06:16 10/01/18 06:16 Labs: Abnormal lab results 10/01/18 10/01/18 Range/Units 06:16 06:16 RBC 3.18 L (3.65-5.03) M/mm3 Hgb 8.6 L (10.1-14.3) gm/dl Hct 26.2 L (30.3-42.9) % MCH 27 L (28-32) pg RDW 19.3 H (13.2-15.2) % BUN 22 H (7-17) mg/dL Creatinine 6.0 H (0.7-1.2) mg/dL Calcium 7.1 L (8.4-10.2) mg/dL
[2018-10-01] MEDS: TRIMOX PO SCH (10:27)
[2018-10-01] MEDS: PROTONIX IV SCH (10:27)
[2018-10-01] MEDS: SODIUM CHLORIDE FLUSH SYRINGE 10 ML IV SCH ×2 (10:28→23:47)
--- NOTE | 2018-10-01 14:45 | Progress Note ---
Assessment and Plan Patient resting on 2 litres O2..Patient is on 2 litres o2. O2 saturation 93%. No acute respiratory distress.Patient is not keeping O2 all the time.Recommend to keep O2 all the time. - Patient Problems (1) Pneumonia involving left lung Current Visit: Yes Status: Acute Plan to address problem: Patient is off the antibiotics. Chest xray reported volume Over load. Patient afebrile. No leukocytosis. (2) Acute exacerbation of congestive heart failure Current Visit: Yes Status: Acute Plan to address problem: Management as per cardiology. (3) Nephrotic syndrome Current Visit: Yes Status: Acute Plan to address problem: Management as per nephrology. Subjective Date of service: 10/01/18 Principal diagnosis: coffee-ground emesis Interval history: Patient resting on 2 litres O2..Patient is on 2 litres o2. O2 saturation 93%. No acute respiratory distress.Patient is not keeping O2 all the time.Recommend to keep O2 all the time. Objective Vital Signs - 12hr 10/01/18 10/01/18 10/01/18 05:12 06:27 10:00 Temperature 98.5 F Pulse Rate 96 H 96 H Respiratory 20 Rate Blood Pressure 140/71 140/71 O2 Sat by Pulse 98 94 Oximetry 10/01/18 10/01/18 12:08 13:47 Temperature 98.0 F Pulse Rate 104 H Respiratory 20 Rate Blood Pressure 114/60 114/78 O2 Sat by Pulse 93 Oximetry Constitutional: no acute distress, alert Eyes: non-icteric ENT: oropharynx moist Neck: supple, no JVD Ascultation: Bilateral: diminished breath sounds Cardiovascular: regular rate and rhythm Gastrointestinal: normoactive bowel sounds, soft, non-tender Integumentary: normal Extremities: no cyanosis, no edema Neurologic: non-focal exam, pupils equal and round, CN II-XII normal Psychiatric: depressed CBC and BMP: 10/01/18 06:16 10/01/18 06:16 ABG, PT/INR, D-dimer: ABG POC ABG pH 7.375 (7.35-7.45) 09/23/18 15:06 POC ABG pCO2 36.3 (35-45) 09/23/18 15:06 POC ABG pO2 99 (80-105) 09/23/18 15:06 POC ABG HCO3 21.2 09/23/18 15:06 POC ABG Total CO2 22 09/23/18 15:06 POC ABG O2 Sat 98 09/23/18 15:06 PT/INR, D-dimer PT 12.7 Sec. (12.2-14.9) 09/26/18 Unknown INR 0.90 (0.87-1.13) 09/26/18 Unknown Abnormal lab findings: Abnormal Labs 09/17/18 09/17/18 09/17/18 15:17 15:17 15:17 WBC RBC 3.34 L Hgb 9.1 L Hct 27.9 L MCH 27 L RDW 20.5 H Plt Count Lymph % (Auto) [place] % (Auto) 8.8 H Callahan # APTT 22.2 L Potassium Chloride 107.7 H BUN 37 H Creatinine 2.3 H Glucose Calcium 7.4 L Phosphorus Magnesium 2.60 H ALT Total Creatine Kinase NT-Pro-B Natriuret Pep 992.5 H Serum Total Protein Total Protein 4.1 L Albumin 1.3 L Gamma Globulins PEP Interpretation Urine WBC (Auto) Urine Creatinine Ur Creatinine 24 Hour Ur Total Protein 24 Hr Urine Total Protein Valproic Acid Crossmatch 09/17/18 09/18/18 09/18/18 17:18 05:22 05:22 WBC 4.4 L RBC 3.06 L Hgb 8.5 L Hct 25.5 L MCH RDW 20.0 H Plt Count Lymph % (Auto) 36.5 H [place] % (Auto) 12.3 H [place] # APTT Potassium Chloride 107.2 H BUN 37 H Creatinine 2.2 H Glucose Calcium 7.4 L Phosphorus Magnesium ALT 6 L Total Creatine Kinase NT-Pro-B Natriuret Pep Serum Total Protein Total Protein 3.9 L Albumin 1.4 L Gamma Globulins PEP Interpretation Urine WBC (Auto) 15.0 H Urine Creatinine Ur Creatinine 24 Hour Ur Total Protein 24 Hr Urine Total Protein Valproic Acid Crossmatch 09/18/18 09/19/18 09/19/18 10:30 05:45 05:45 WBC RBC Hgb Hct MCH RDW Plt Count Lymph % (Auto) [place] % (Auto) [place]ahan # APTT Potassium Chloride BUN 37 H Creatinine 2.1 H Glucose Calcium 7.3 L Phosphorus Magnesium ALT Total Creatine Kinase NT-Pro-B Natriuret Pep Serum Total Protein 3.4 L Total Protein Albumin 1.2 L Gamma Globulins 0.5 L PEP Interpretation see below H Urine WBC (Auto) Urine Creatinine 147.5 H Ur Creatinine 24 Hour 0.7 L Ur Total Protein 24 Hr 1073.50 H Urine Total Protein 226 H Valproic Acid Crossmatch 09/20/18 09/20/18 09/21/18 04:56 15:15 06:13 WBC RBC 2.84 L Hgb 7.8 L Hct 24.1 L MCH 27 L RDW 19.8 H Plt Count Lymph % (Auto) [place] % (Auto) 12.9 H [place] # APTT Potassium 5.4 H 5.5 H Chloride 108.2 H BUN 38 H Creatinine 2.4 H Glucose Calcium 7.2 L Phosphorus Magnesium ALT Total Creatine Kinase NT-Pro-B Natriuret Pep Serum Total Protein Total Protein Albumin Gamma Globulins PEP Interpretation Urine WBC (Auto) Urine Creatinine Ur Creatinine 24 Hour Ur Total Protein 24 Hr Urine Total Protein Valproic Acid Crossmatch 09/21/18 09/21/18 09/22/18 06:13 07:00 10:12 WBC RBC Hgb Hct MCH RDW Plt Count Lymph % (Auto) [place] % (Auto) [place]ahan # APTT Potassium 5.2 H Chloride 108.2 H 111.5 H BUN 39 H 40 H Creatinine 2.7 H 3.1 H Glucose Calcium 7.3 L 7.1 L Phosphorus Magnesium ALT Total Creatine Kinase NT-Pro-B Natriuret Pep Serum Total Protein Total Protein Albumin Gamma Globulins PEP Interpretation Urine WBC (Auto) Urine Creatinine 97.5 H Ur Creatinine 24 Hour Ur Total Protein 24 Hr Urine Total Protein 708 H Valproic Acid Crossmatch 09/23/18 09/25/18 09/25/18 04:40 07:30 07:30 WBC RBC 2.55 L Hgb 6.9 L Hct 21.5 L MCH 27 L RDW 19.5 H Plt Count Lymph % (Auto) [place] % (Auto) 12.2 H [place] # APTT Potassium Chloride 109.1 H BUN 42 H 33 H Creatinine 3.8 H 4.4 H Glucose 102 H Calcium 7.2 L 7.3 L Phosphorus 5.00 H Magnesium ALT Total Creatine Kinase NT-Pro-B Natriuret Pep Serum Total Protein Total Protein Albumin Gamma Globulins PEP Interpretation Urine WBC (Auto) Urine Creatinine Ur Creatinine 24 Hour Ur Total Protein 24 Hr Urine Total Protein Valproic Acid Crossmatch 09/26/18 09/26/18 09/26/18 07:17 07:17 07:17 WBC RBC Hgb 6.7 L Hct 20.0 L MCH RDW Plt Count Lymph % (Auto) [place] % (Auto) [place]ahan # APTT Potassium Chloride BUN 24 H Creatinine 4.1 H Glucose Calcium 7.0 L Phosphorus Magnesium ALT Total Creatine Kinase 559 H NT-Pro-B Natriuret Pep Serum Total Protein Total Protein Albumin Gamma Globulins PEP Interpretation Urine WBC (Auto) Urine Creatinine Ur Creatinine 24 Hour Ur Total Protein 24 Hr Urine Total Protein Valproic Acid 13.2 L Crossmatch 09/26/18 09/27/18 09/27/18 Unknown 07:42 07:42 WBC RBC 2.16 L Hgb 6.0 L Hct 18.1 L* MCH RDW 18.9 H Plt Count 130 L Lymph % (Auto) [place] % (Auto) 15.8 H [place] # APTT 36.7 H Potassium Chloride 108.4 H BUN 26 H Creatinine 4.8 H Glucose Calcium 7.1 L Phosphorus 4.60 H Magnesium ALT Total Creatine Kinase NT-Pro-B Natriuret Pep Serum Total Protein Total Protein Albumin Gamma Globulins PEP Interpretation Urine WBC (Auto) Urine Creatinine Ur Creatinine 24 Hour Ur Total Protein 24 Hr Urine Total Protein Valproic Acid Crossmatch 09/27/18 09/28/18 09/29/18 10:43 04:43 05:07 WBC RBC 3.29 L 3.28 L Hgb 8.9 L 8.9 L Hct 27.2 L D 27.1 L MCH 27 L 27 L RDW 19.3 H 19.3 H Plt Count 130 L 133 L Lymph % (Auto) [place] % (Auto) 15.6 H [place] # 0.9 H APTT Potassium Chloride BUN Creatinine Glucose Calcium Phosphorus Magnesium ALT Total Creatine Kinase NT-Pro-B Natriuret Pep Serum Total Protein Total Protein Albumin Gamma Globulins PEP Interpretation Urine WBC (Auto) Urine Creatinine Ur Creatinine 24 Hour Ur Total Protein 24 Hr Urine Total Protein Valproic Acid Crossmatch See Detail 09/29/18 10/01/18 10/01/18 05:07 06:16 06:16 WBC RBC 3.18 L Hgb 8.6 L Hct 26.2 L MCH 27 L RDW 19.3 H Plt Count Lymph % (Auto) [place] % (Auto) [place]ahan # APTT Potassium Chloride BUN 22 H 22 H Creatinine 5.4 H 6.0 H Glucose Calcium 7.1 L 7.1 L Phosphorus Magnesium ALT Total Creatine Kinase NT-Pro-B Natriuret Pep Serum Total Protein Total Protein Albumin Gamma Globulins PEP Interpretation Urine WBC (Auto) Urine Creatinine Ur Creatinine 24 Hour Ur Total Protein 24 Hr Urine Total Protein Valproic Acid Crossmatch
--- NOTE | 2018-10-01 16:22 | Progress Note ---
Assessment and Plan Assessment and plan: Patient is a 47 yo woman with a history of Obesity, HTN and Schizophrenia who presented to the ER with bilateral leg swelling, SOB and increase in the abdominal girth and weight gain of ~86 pounds in 10 weeks. Patient denies any h/o heart disease or Liver problem. Labs were significant for creatinine of 2.2, Hb 8.5, albumin 1.4 and 3+ protein in the urine. Patient was admitted with provisional diagnosis of Nephrotic syndrome. Nephrology was consulted for further evaluation and recommended Kidney biopsy; which patient refused on multiple occasions so Radiology declined to re-schedule the procedure. Also, During hospital coarse, she was found to have coffee ground emesis and EGD was done on 09/26/18 and showed M-W tear. Her hemoglobin was steadily dropping and she initially refused blood transfusion until Mr. Galeas convinced her to get the blood transfusion and do Hemodialysis which she refuses at times. 09/26/18 EGD Pre-op diagnosis: gi bleed Post-op diagnosis: same Findings: EGD: large hiatal hernia - m-w tear with pigmented area jut above g-e junction - mild gastritis - negative other Procedure: EGD =Nephrotic syndrome. Urine protein quantification pending. Follow BI, ANCA and complements. Renal ultrasound negative. Patient unfortunately refused kidney biopsy. =Coffee-ground emesis with Radha Mendez Tear. GI consulted H&H dropped and she refused blood transfusion today. =Acute on chronic Blood loss anemia due to above =Right lower extremity thigh pain. Doppler lower extremities bilaterally negative for DVT =Left breast swelling, unknown at present. Need outpatient Mammogram and U/S =Morbid obesity, bmi 55.2: lifestyle modification =Medical noncompliance. Patient intermittently at times refusing care. Psych/Mik told me she has decision making capacity. =Schizophrenia, Bipolar disorder. Continue current medications.. As above. Psych consulted =Hyperkalemia. Kayexalate. Recheck BMP in the morning. =Sepsis. Left lower lobe pneumonia. Present on admission. Continue IV antibioti cs. Etiology secondary to pneumonia and UTI. =ARF, vasomotor nephropathy, poa =VRE: ID is following, ordered isolation Patient is apart of [facility] Outreach and ACT Team, call, psychiatrist Dr. Tatum @ [phone] and If Dr. Tatum is not available, call coordinator of care, Rao Gudelia [phone]. Disposition: continue inpatient care, needs HD dialysis setup and new placement. Radiology has refused to re-schedule the Kidney biopsy because they have tired 3 times and pt refuses. History Interval history: Patient was seen and examined. Follow-up on current diagnosis of GIB. Overnight uneventful. Patient denies any chest pain, shortness breath, nausea/vomiting or severe headaches. Imaging, nursing note, chart, labs and old chart reviewed. Discussed with patient. Hospitalist Physical - Physical exam Narrative exam: Patient Refused exam today because she had an accident with stool, I notified charge nurse - Constitutional Vitals: Temp Pulse Resp BP Pulse Ox 98.0 F 104 H 20 114/78 93 10/01/18 12:08 10/01/18 12:08 10/01/18 12:08 10/01/18 13:47 10/01/18 12:08 General appearance: Present: no acute distress, obese Results - Labs CBC & Chem 7: 10/01/18 06:16 10/01/18 06:16 Labs: Laboratory Last Values WBC 6.4 K/mm3 (4.5-11.0) 10/01/18 06:16 RBC 3.18 M/mm3 (3.65-5.03) L 10/01/18 06:16 Hgb 8.6 gm/dl (10.1-14.3) L 10/01/18 06:16 Hct 26.2 % (30.3-42.9) L 10/01/18 06:16 MCV 83 fl (79-97) 10/01/18 06:16 MCH 27 pg (28-32) L 10/01/18 06:16 MCHC 33 % (30-34) 10/01/18 06:16 RDW 19.3 % (13.2-15.2) H 10/01/18 06:16 Plt Count 144 K/mm3 (140-440) 10/01/18 06:16 Lymph % (Auto) 24.2 % (13.4-35.0) 09/29/18 05:07 [place] % (Auto) 15.6 % (0.0-7.3) H 09/29/18 05:07 Eos % (Auto) 1.7 % (0.0-4.3) 09/29/18 05:07 Baso % (Auto) 0.3 % (0.0-1.8) 09/29/18 05:07 Lymph # 1.4 K/mm3 (1.2-5.4) 09/29/18 05:07 [place] # 0.9 K/mm3 (0.0-0.8) H 09/29/18 05:07 Eos # 0.1 K/mm3 (0.0-0.4) 09/29/18 05:07 Baso # 0.0 K/mm3 (0.0-0.1) 09/29/18 05:07 Seg Neutrophils % 58.2 % (40.0-70.0) 09/29/18 05:07 Seg Neutrophils # 3.5 K/mm3 (1.8-7.7) 09/29/18 05:07 PT 12.7 Sec. (12.2-14.9) 09/26/18 Unknown INR 0.90 (0.87-1.13) 09/26/18 Unknown APTT 36.7 Sec. (24.2-36.6) H 09/26/18 Unknown POC ABG pH 7.375 (7.35-7.45) 09/23/18 15:06 POC ABG pCO2 36.3 (35-45) 09/23/18 15:06 POC ABG pO2 99 (80-105) 09/23/18 15:06 POC ABG HCO3 21.2 09/23/18 15:06 POC ABG Total CO2 22 09/23/18 15:06 POC ABG O2 Sat 98 09/23/18 15:06 POC ABG Base Excess -4 09/23/18 15:06 FiO2 2 % 09/23/18 15:06 Sodium 141 mmol/L (137-145) 10/01/18 06:16 Potassium 4.9 mmol/L (3.6-5.0) 10/01/18 06:16 Chloride 104.7 mmol/L (98-107) 10/01/18 06:16 Carbon Dioxide 30 mmol/L (22-30) 10/01/18 06:16 Anion Gap 11 mmol/L 10/01/18 06:16 BUN 22 mg/dL (7-17) H 10/01/18 06:16 Creatinine 6.0 mg/dL (0.7-1.2) H 10/01/18 06:16 Estimated GFR 9 ml/min 10/01/18 06:16 BUN/Creatinine Ratio 4 % 10/01/18 06:16 Glucose 80 mg/dL (65-100) 10/01/18 06:16 Calcium 7.1 mg/dL (8.4-10.2) L 10/01/18 06:16 Phosphorus 4.60 mg/dL (2.5-4.5) H 09/27/18 07:42 Magnesium 2.60 mg/dL (1.7-2.3) H 09/17/18 15:17 Total Bilirubin < 0.20 mg/dL (0.1-1.2) 09/18/18 05:22 AST 13 units/L (5-40) 09/18/18 05:22 ALT 6 units/L (7-56) L 09/18/18 05:22 Alkaline Phosphatase 51 units/L (35-129) 09/18/18 05:22 Total Creatine Kinase 559 units/L (30-135) H 09/26/18 07:17 Troponin T 0.012 ng/mL (0.00-0.029) 09/17/18 15:17 NT-Pro-B Natriuret Pep 992.5 pg/mL (0-450) H 09/17/18 15:17 Serum Total Protein 3.4 g/dL (6.1-8.1) L 09/19/18 05:45 Total Protein 3.9 g/dL (6.3-8.2) L 09/18/18 05:22 Albumin 1.2 g/dL (3.8-4.8) L 09/19/18 05:45 Albumin/Globulin Ratio 0.6 % 09/18/18 05:22 Hcatb-5-Tomaqsmzz 0.3 g/dL (0.2-0.3) 09/19/18 05:45 Bxltz-5-Hiuztphhw 0.8 g/dL (0.5-0.9) 09/19/18 05:45 Beta Globulins 0.4 g/dL (0.2-0.5) 09/19/18 05:45 Gamma Globulins 0.5 g/dL (0.8-1.7) L 09/19/18 05:45 Abnorm Protein Band 1 see below 09/19/18 05:45 PEP Interpretation see below H 09/19/18 05:45 Amylase 53 units/L (27-131) 09/25/18 13:53 Lipase 48 units/L (13-60) 09/25/18 13:53 HCG, Qual Negative (Negative) 09/25/18 13:53 PTH Intact 46.07 pg/mL (15-65) 09/19/18 05:45 Urine Color Yellow (Yellow) 09/17/18 17:18 Urine Turbidity Cloudy (Clear) 09/17/18 17:18 Urine pH 5.0 (5.0-7.0) 09/17/18 17:18 Ur Specific [place] 1.029 (1.003-1.030) 09/17/18 17:18 Urine Protein >500 mg/dL (Negative) 09/17/18 17:18 Urine Glucose (UA) Neg mg/dL (Negative) 09/17/18 17:18 Urine Ketones Tr mg/dL (Negative) 09/17/18 17:18 Urine Blood Sm (Negative) 09/17/18 17:18 Urine Nitrite Neg (Negative) 09/17/18 17:18 Urine Bilirubin Neg (Negative) 09/17/18 17:18 Urine Urobilinogen < 2.0 mg/dL (<2.0) 09/17/18 17:18 Ur Leukocyte Esterase Neg (Negative) 09/17/18 17:18 Urine WBC (Auto) 15.0 /HPF (0.0-6.0) H 09/17/18 17:18 Urine RBC (Auto) 13.0 /HPF (0.0-6.0) 09/17/18 17:18 U Epithel Cells (Auto) 6.0 /HPF (0-13.0) 09/17/18 17:18 Urine Bacteria (Auto) 2+ /HPF (Negative) 09/17/18 17:18 Urine WBC Clumps 2+ /HPF 09/17/18 17:18 Hyaline Casts 6 /LPF 09/17/18 17:18 Urine Mucus Few /HPF 09/17/18 17:18 Urine Yeast (Budding) 2+ /HPF 09/17/18 17:18 Urine Eosinophils None seen (None Seen) 09/18/18 10:30 Urine Total Volume 475 ml 09/18/18 10:30 Urine Creatinine 97.5 mg/dL (0.1-20.0) H 09/21/18 07:00 Ur Creatinine 24 Hour 0.7 (0.8-2.8) L 09/18/18 10:30 Ur Total Protein 24 Hr 1073.50 mg/dL (2-200) H 09/18/18 10:30 Protein/Creatinin Ratio 7.26 09/21/18 07:00 Urine Sodium 53 mmol/L 09/21/18 07:00 Urine Urea Nitrogen 467 09/18/18 10:30 Ur Urea Nitrogen 24 Hr 2.22 09/18/18 10:30 Urine Total Protein 708 mg/dL (5-11.8) H 09/21/18 07:00 Urine Opiates Screen Presumptive negative 09/17/18 17:18 Urine Methadone Screen Presumptive negative 09/17/18 17:18 Ur Barbiturates Screen Presumptive negative 09/17/18 17:18 Valproic Acid 13.2 ug/mL (50-100) L 09/26/18 07:17 Ur Phencyclidine Scrn Presumptive negative 09/17/18 17:18 Ur Amphetamines Screen Presumptive negative 09/17/18 17:18 U Benzodiazepines Scrn Presumptive negative 09/17/18 17:18 Urine Cocaine Screen Presumptive negative 09/17/18 17:18 U Marijuana (THC) Screen Presumptive negative 09/17/18 17:18 Drugs of Abuse Note Disclamer 09/17/18 17:18 BI Screen Negative (Negative) 09/19/18 05:45 Proteinase 3 (PR3) Ab <1.0 AI (<1.0) 09/19/18 05:45 Myeloperoxidase Ab <1.0 AI (<1.0) 09/19/18 05:45 Glomerular Base Mem IgG See scanned result 09/19/18 05:45 Complement C3 143 mg/dL (83-193) 09/19/18 05:45 Complement C4 56 mg/dL (15-57) 09/19/18 05:45 Hepatitis A IgM Ab Non-reactive (NonReactive) 09/19/18 05:45 Hep Bs Antigen Non-reactive (Negative) 09/19/18 05:45 Hep B Core IgM Ab Non-reactive (NonReactive) 09/19/18 05:45 Hepatitis C Antibody Non-reactive (NonReactive) 09/19/18 05:45 HIV 1&2 Antibody Rapid Non react (Non React) 09/27/18 07:42 HIV P24 Antigen Non react (Non React) 09/27/18 07:42 Blood Type O POSITIVE 09/27/18 10:43 Antibody Screen Negative 09/27/18 10:43 Crossmatch See Detail 09/27/18 10:43 Active Medications - Current Medications Current Medications: Generic Name Dose Route Start Last Admin Trade Name Freq PRN Reason Stop Dose Admin Acetaminophen 650 mg 09/18/18 02:40 09/27/18 05:36 Tylenol PO 650 mg Q4H PRN Administration Pain MILD(1-3)/Fever >100.5/MENDOZA Atorvastatin Calcium 40 mg 09/18/18 22:00 09/30/18 21:34 Lipitor PO 40 mg QHS LUZ Administration Diphenhydramine HCl 50 mg 09/18/18 22:00 09/30/18 21:34 Benadryl PO 50 mg HS LUZ Administration Divalproex Sodium 500 mg 09/18/18 10:00 10/01/18 10:[address] PO 500 mg BID LUZ Administration Enoxaparin Sodium 30 mg 09/20/18 22:00 09/30/18 21:34 Lovenox SUB-Q 30 mg QDAY@2200 LUZ Administration Epoetin Luis 20,000 unit 09/26/18 12:23 09/28/18 22:15 Procrit SUB-Q 20,000 unit KUSHAL PRN Administration hemodialysis Furosemide 80 mg 09/29/18 06:00 10/01/18 06:27 Lasix PO 80 mg 0600,1800 LUZ Administration Haloperidol 5 mg 09/25/18 22:00 09/30/18 21:34 Haldol PO 5 mg HS LUZ Administration Hydralazine HCl 10 mg 09/22/18 06:28 09/22/18 12:12 Apresoline IV 10 mg Q4H PRN Administration systolic b/p >165 Hydralazine HCl 50 mg 09/22/18 14:00 10/01/18 13:47 Apresoline PO 50 mg Q8HR LUZ Administration Hydromorphone HCl 0.5 mg 09/18/18 02:40 Dilaudid IV Q3H PRN Pain , Severe (7-10) Sodium Chloride 100 mls @ 999 mls/hr 10/01/18 08:00 Nacl 0.9% IV KUSHAL PRN Hypotension Ondansetron HCl 4 mg 09/18/18 02:40 09/23/18 08:45 Zofran IV 4 mg Q8H PRN Administration Nausea And Vomiting Oxycodone/Acetaminophen 1 tab 09/18/18 02:40 09/28/18 23:56 Percocet 5/325 PO 1 tab Q6H PRN Administration Pain, Moderate (4-6) Pantoprazole Sodium 40 mg 10/02/18 10:00 Protonix PO DAILY LUZ Sodium Chloride 10 ml 09/18/18 10:00 10/01/18 10:28 Sodium Chloride Flush Syringe 10 Ml IV 10 ml BID LUZ Administration Sodium Chloride 10 ml 09/18/18 02:40 Sodium Chloride Flush Syringe 10 Ml IV PRN PRN LINE FLUSH Nutrition/Malnutrition Assess - Dietary Evaluation Nutrition/Malnutrition Findings: Nutrition Notes Start: 09/24/18 15:36 Freq: Status: Active Protocol: Document 09/28/18 16:43 RM (Rec: 09/28/18 16:53 RM [id number]) Nutrition Notes Initial or Follow up Reassessment Current Diagnosis Sepsis Other Pertinent Diagnosis Schizophrenia,Nephrotic syndrome,UTI,Pneu,Coffee ground emesis, on HD Current Diet GI soft Labs/Tests Reviewed Pertinent Medications Reviewed Height 5 ft 6 in Weight 147.8 kg [place] Body Weight (kg) 59.09 BMI 52.6 Subjective/Other Information Pt stated that her appetite is good and that she eats all of her meals. Noted lunch at bedside w/most eaten. Percent of energy/protein needs met: 93%/100% Burn Absent Trauma Absent #1 Nutrition Diagnosis Inadequate oral intake As Evidenced by Signs and Symptoms pt meeting 93% of calorie and 100% of protein needs Diagnosis Progress(for reassessment Resolved documentation) Is patient on ventilator? No Is Patient Ambulatory and/or Out of Bed Yes REE-(Seco-St. Jeor-ambulatory/OOB) [ 2775.175 [id number]] Kcal/Kg value to use for calculation 15 Approximate Energy Requirements Using 2217 kcal/Kg Calculation Used for Recommendations Kcal/kg Additional Notes Protein Needs: 71-77g (1.2-1. 3g/kg IBW) Fluid Needs: 1 ml/kcal Nutrition Intervention Change Diet Order: GI soft,Renal Goal #1 Continue to meet at least 75% of calorie and protein needs via PO intakes Anticipated Discharge Needs: Unable to determine at this time Follow-Up By: 10/02/18 Additional Comments Follow for PO and ONS intakes
[2018-10-01] MEDS: HALDOL PO SCH (23:47)
[2018-10-01] MEDS: BENADRYL PO SCH (23:47)
[2018-10-02] MEDS: LOVENOX SUB-Q SCH (03:21)
[2018-10-02] MEDS: APRESOLINE PO SCH ×2 (06:52→14:00)
[2018-10-02] MEDS: LASIX PO SCH ×2 (06:52→18:17)
--- NOTE | 2018-10-02 07:28 | Progress Note ---
Assessment and Plan Assessment and plan: Patient is a 47 yo woman with a history of Obesity, HTN and Schizophrenia who presented to the ER with bilateral leg swelling, SOB and increase in the abdominal girth and weight gain of ~86 pounds in 10 weeks. Patient denies any h/o heart disease or Liver problem. Labs were significant for creatinine of 2.2, Hb 8.5, albumin 1.4 and 3+ protein in the urine. Patient was admitted with provisional diagnosis of Nephrotic syndrome. Nephrology was consulted for further evaluation and recommended Kidney biopsy; which patient refused on multiple occasions so Radiology declined to re-schedule the procedure. Also, During hospital coarse, she was found to have coffee ground emesis and EGD was done on 09/26/18 and showed M-W tear. Her hemoglobin was steadily dropping and she initially refused blood transfusion until Mr. Galeas convinced her to get the blood transfusion and do Hemodialysis which she refuses at times. 09/26/18 EGD Pre-op diagnosis: gi bleed Post-op diagnosis: same Findings: EGD: large hiatal hernia - m-w tear with pigmented area jut above g-e junction - mild gastritis - negative other Procedure: EGD =Nephrotic syndrome. Urine protein quantification pending. Follow BI, ANCA and complements. Renal ultrasound negative. Patient unfortunately refused kidney biopsy. =Coffee-ground emesis with Radha Mendez Tear. GI consulted H&H dropped and she refused blood transfusion today. =Acute on chronic Blood loss anemia due to above =Right lower extremity thigh pain. Doppler lower extremities bilaterally negative for DVT =Left breast swelling, unknown at present. Need outpatient Mammogram and U/S =Morbid obesity, bmi 55.2: lifestyle modification =Medical noncompliance. Patient intermittently at times refusing care. Psych/Mik told me she has decision making capacity. =Schizophrenia, Bipolar disorder. Continue current medications.. As above. Psych consulted =Hyperkalemia. Kayexalate. Recheck BMP in the morning. =Sepsis. Left lower lobe pneumonia. Present on admission. Continue IV antibioti cs. Etiology secondary to pneumonia and UTI. =ARF, vasomotor nephropathy, poa =VRE: ID is following, ordered isolation Patient is apart of [place] re[facility] Outreach and ACT Team, call, psychiatrist Dr. Tatum @ [phone] and If Dr. Tatum is not available, call coordinator of care, Rao Gudelia [phone]. Disposition: continue inpatient care, needs HD dialysis setup and new placement. Radiology has refused to re-schedule the Kidney biopsy because they have tired 3 times and pt refuses. History Interval history: Patient was seen and examined. Follow-up on current diagnosis of GIB. Overnight uneventful. Patient denies any chest pain, shortness breath, nausea/vomiting or severe headaches. Imaging, nursing note, chart, labs and old chart reviewed. Discussed with patient. Hospitalist Physical - Physical exam Narrative exam: Patient Refused exam today because she had an accident with stool, I notified charge nurse - Constitutional Vitals: Temp Pulse Resp BP Pulse Ox 98.1 F 98 H 18 146/79 96 10/02/18 05:46 10/02/18 06:52 10/02/18 05:46 10/02/18 06:52 10/02/18 05:46 General appearance: Present: no acute distress, obese Results - Labs CBC & Chem 7: 10/01/18 06:16 10/01/18 06:16 Labs: Laboratory Last Values WBC 6.4 K/mm3 (4.5-11.0) 10/01/18 06:16 RBC 3.18 M/mm3 (3.65-5.03) L 10/01/18 06:16 Hgb 8.6 gm/dl (10.1-14.3) L 10/01/18 06:16 Hct 26.2 % (30.3-42.9) L 10/01/18 06:16 MCV 83 fl (79-97) 10/01/18 06:16 MCH 27 pg (28-32) L 10/01/18 06:16 MCHC 33 % (30-34) 10/01/18 06:16 RDW 19.3 % (13.2-15.2) H 10/01/18 06:16 Plt Count 144 K/mm3 (140-440) 10/01/18 06:16 Lymph % (Auto) 24.2 % (13.4-35.0) 09/29/18 05:07 [place] % (Auto) 15.6 % (0.0-7.3) H 09/29/18 05:07 Eos % (Auto) 1.7 % (0.0-4.3) 09/29/18 05:07 Baso % (Auto) 0.3 % (0.0-1.8) 09/29/18 05:07 Lymph # 1.4 K/mm3 (1.2-5.4) 09/29/18 05:07 [place] # 0.9 K/mm3 (0.0-0.8) H 09/29/18 05:07 Eos # 0.1 K/mm3 (0.0-0.4) 09/29/18 05:07 Baso # 0.0 K/mm3 (0.0-0.1) 09/29/18 05:07 Seg Neutrophils % 58.2 % (40.0-70.0) 09/29/18 05:07 Seg Neutrophils # 3.5 K/mm3 (1.8-7.7) 09/29/18 05:07 PT 12.7 Sec. (12.2-14.9) 09/26/18 Unknown INR 0.90 (0.87-1.13) 09/26/18 Unknown APTT 36.7 Sec. (24.2-36.6) H 09/26/18 Unknown POC ABG pH 7.375 (7.35-7.45) 09/23/18 15:06 POC ABG pCO2 36.3 (35-45) 09/23/18 15:06 POC ABG pO2 99 (80-105) 09/23/18 15:06 POC ABG HCO3 21.2 09/23/18 15:06 POC ABG Total CO2 22 09/23/18 15:06 POC ABG O2 Sat 98 09/23/18 15:06 POC ABG Base Excess -4 09/23/18 15:06 FiO2 2 % 09/23/18 15:06 Sodium 141 mmol/L (137-145) 10/01/18 06:16 Potassium 4.9 mmol/L (3.6-5.0) 10/01/18 06:16 Chloride 104.7 mmol/L (98-107) 10/01/18 06:16 Carbon Dioxide 30 mmol/L (22-30) 10/01/18 06:16 Anion Gap 11 mmol/L 10/01/18 06:16 BUN 22 mg/dL (7-17) H 10/01/18 06:16 Creatinine 6.0 mg/dL (0.7-1.2) H 10/01/18 06:16 Estimated GFR 9 ml/min 10/01/18 06:16 BUN/Creatinine Ratio 4 % 10/01/18 06:16 Glucose 80 mg/dL (65-100) 10/01/18 06:16 Calcium 7.1 mg/dL (8.4-10.2) L 10/01/18 06:16 Phosphorus 4.60 mg/dL (2.5-4.5) H 09/27/18 07:42 Magnesium 2.60 mg/dL (1.7-2.3) H 09/17/18 15:17 Total Bilirubin < 0.20 mg/dL (0.1-1.2) 09/18/18 05:22 AST 13 units/L (5-40) 09/18/18 05:22 ALT 6 units/L (7-56) L 09/18/18 05:22 Alkaline Phosphatase 51 units/L (35-129) 09/18/18 05:22 Total Creatine Kinase 559 units/L (30-135) H 09/26/18 07:17 Troponin T 0.012 ng/mL (0.00-0.029) 09/17/18 15:17 NT-Pro-B Natriuret Pep 992.5 pg/mL (0-450) H 09/17/18 15:17 Serum Total Protein 3.4 g/dL (6.1-8.1) L 09/19/18 05:45 Total Protein 3.9 g/dL (6.3-8.2) L 09/18/18 05:22 Albumin 1.2 g/dL (3.8-4.8) L 09/19/18 05:45 Albumin/Globulin Ratio 0.6 % 09/18/18 05:22 Nvewt-7-Qokhbjmvt 0.3 g/dL (0.2-0.3) 09/19/18 05:45 [place]-9-Grytksnda 0.8 g/dL (0.5-0.9) 09/19/18 05:45 Beta Globulins 0.4 g/dL (0.2-0.5) 09/19/18 05:45 Gamma Globulins 0.5 g/dL (0.8-1.7) L 09/19/18 05:45 Abnorm Protein Band 1 see below 09/19/18 05:45 PEP Interpretation see below H 09/19/18 05:45 Amylase 53 units/L (27-131) 09/25/18 13:53 Lipase 48 units/L (13-60) 09/25/18 13:53 HCG, Qual Negative (Negative) 09/25/18 13:53 PTH Intact 46.07 pg/mL (15-65) 09/19/18 05:45 Urine Color Yellow (Yellow) 09/17/18 17:18 Urine Turbidity Cloudy (Clear) 09/17/18 17:18 Urine pH 5.0 (5.0-7.0) 09/17/18 17:18 Ur Specific [place] 1.029 (1.003-1.030) 09/17/18 17:18 Urine Protein >500 mg/dL (Negative) 09/17/18 17:18 Urine Glucose (UA) Neg mg/dL (Negative) 09/17/18 17:18 Urine Ketones Tr mg/dL (Negative) 09/17/18 17:18 Urine Blood Sm (Negative) 09/17/18 17:18 Urine Nitrite Neg (Negative) 09/17/18 17:18 Urine Bilirubin Neg (Negative) 09/17/18 17:18 Urine Urobilinogen < 2.0 mg/dL (<2.0) 09/17/18 17:18 Ur Leukocyte Esterase Neg (Negative) 09/17/18 17:18 Urine WBC (Auto) 15.0 /HPF (0.0-6.0) H 09/17/18 17:18 Urine RBC (Auto) 13.0 /HPF (0.0-6.0) 09/17/18 17:18 U Epithel Cells (Auto) 6.0 /HPF (0-13.0) 09/17/18 17:18 Urine Bacteria (Auto) 2+ /HPF (Negative) 09/17/18 17:18 Urine WBC Clumps 2+ /HPF 09/17/18 17:18 Hyaline Casts 6 /LPF 09/17/18 17:18 Urine Mucus Few /HPF 09/17/18 17:18 Urine Yeast (Budding) 2+ /HPF 09/17/18 17:18 Urine Eosinophils None seen (None Seen) 09/18/18 10:30 Urine Total Volume 475 ml 09/18/18 10:30 Urine Creatinine 97.5 mg/dL (0.1-20.0) H 09/21/18 07:00 Ur Creatinine 24 Hour 0.7 (0.8-2.8) L 09/18/18 10:30 Ur Total Protein 24 Hr 1073.50 mg/dL (2-200) H 09/18/18 10:30 Protein/Creatinin Ratio 7.26 09/21/18 07:00 Urine Sodium 53 mmol/L 09/21/18 07:00 Urine Urea Nitrogen 467 09/18/18 10:30 Ur Urea Nitrogen 24 Hr 2.22 09/18/18 10:30 Urine Total Protein 708 mg/dL (5-11.8) H 09/21/18 07:00 Urine Opiates Screen Presumptive negative 09/17/18 17:18 Urine Methadone Screen Presumptive negative 09/17/18 17:18 Ur Barbiturates Screen Presumptive negative 09/17/18 17:18 Valproic Acid 13.2 ug/mL (50-100) L 09/26/18 07:17 Ur Phencyclidine Scrn Presumptive negative 09/17/18 17:18 Ur Amphetamines Screen Presumptive negative 09/17/18 17:18 U Benzodiazepines Scrn Presumptive negative 09/17/18 17:18 Urine Cocaine Screen Presumptive negative 09/17/18 17:18 U Marijuana (THC) Screen Presumptive negative 09/17/18 17:18 Drugs of Abuse Note Disclamer 09/17/18 17:18 BI Screen Negative (Negative) 09/19/18 05:45 Proteinase 3 (PR3) Ab <1.0 AI (<1.0) 09/19/18 05:45 Myeloperoxidase Ab <1.0 AI (<1.0) 09/19/18 05:45 Glomerular Base Mem IgG See scanned result 09/19/18 05:45 Complement C3 143 mg/dL (83-193) 09/19/18 05:45 Complement C4 56 mg/dL (15-57) 09/19/18 05:45 Hepatitis A IgM Ab Non-reactive (NonReactive) 09/19/18 05:45 Hep Bs Antigen Non-reactive (Negative) 09/19/18 05:45 Hep B Core IgM Ab Non-reactive (NonReactive) 09/19/18 05:45 Hepatitis C Antibody Non-reactive (NonReactive) 09/19/18 05:45 HIV 1&2 Antibody Rapid Non react (Non React) 09/27/18 07:42 HIV P24 Antigen Non react (Non React) 09/27/18 07:42 Blood Type O POSITIVE 09/27/18 10:43 Antibody Screen Negative 09/27/18 10:43 Crossmatch See Detail 09/27/18 10:43 Active Medications - Current Medications Current Medications: Generic Name Dose Route Start Last Admin Trade Name Freq PRN Reason Stop Dose Admin Acetaminophen 650 mg 09/18/18 02:40 09/27/18 05:36 Tylenol PO 650 mg Q4H PRN Administration Pain MILD(1-3)/Fever >100.5/MENDOZA Atorvastatin Calcium 40 mg 09/18/18 22:00 10/01/18 23:47 Lipitor PO 40 mg QHS LUZ Administration Diphenhydramine HCl 50 mg 09/18/18 22:00 10/01/18 23:47 Benadryl PO 50 mg HS LUZ Administration Divalproex Sodium 500 mg 09/18/18 10:00 10/01/18 23:[address] PO 500 mg BID LUZ Administration Enoxaparin Sodium 30 mg 09/20/18 22:00 10/02/18 03:21 Lovenox SUB-Q 30 mg QDAY@2200 LUZ Administration Epoetin Luis 20,000 unit 09/26/18 12:23 09/28/18 22:15 Procrit SUB-Q 20,000 unit KUSHAL PRN Administration hemodialysis Furosemide 80 mg 09/29/18 06:00 10/02/18 06:52 Lasix PO 80 mg 0600,1800 LUZ Administration Haloperidol 5 mg 09/25/18 22:00 10/01/18 23:47 Haldol PO 5 mg HS LUZ Administration Hydralazine HCl 10 mg 09/22/18 06:28 09/22/18 12:12 Apresoline IV 10 mg Q4H PRN Administration systolic b/p >165 Hydralazine HCl 50 mg 09/22/18 14:00 10/02/18 06:52 Apresoline PO 50 mg Q8HR LUZ Administration Hydromorphone HCl 0.5 mg 09/18/18 02:40 Dilaudid IV Q3H PRN Pain , Severe (7-10) Sodium Chloride 100 mls @ 999 mls/hr 10/01/18 08:00 Nacl 0.9% IV KUSHAL PRN Hypotension Ondansetron HCl 4 mg 09/18/18 02:40 09/23/18 08:45 Zofran IV 4 mg Q8H PRN Administration Nausea And Vomiting Oxycodone/Acetaminophen 1 tab 09/18/18 02:40 09/28/18 23:56 Percocet 5/325 PO 1 tab Q6H PRN Administration Pain, Moderate (4-6) Pantoprazole Sodium 40 mg 10/02/18 10:00 Protonix PO DAILY LUZ Sodium Chloride 10 ml 09/18/18 10:00 10/01/18 23:47 Sodium Chloride Flush Syringe 10 Ml IV 10 ml BID LUZ Administration Sodium Chloride 10 ml 09/18/18 02:40 Sodium Chloride Flush Syringe 10 Ml IV PRN PRN LINE FLUSH Nutrition/Malnutrition Assess - Dietary Evaluation Nutrition/Malnutrition Findings: Nutrition Notes Start: 09/24/18 15:36 Freq: Status: Active Protocol: Document 09/28/18 16:43 RM (Rec: 09/28/18 16:53 RM [id number]) Nutrition Notes Initial or Follow up Reassessment Current Diagnosis Sepsis Other Pertinent Diagnosis Schizophrenia,Nephrotic syndrome,UTI,Pneu,Coffee ground emesis, on HD Current Diet GI soft Labs/Tests Reviewed Pertinent Medications Reviewed Height 5 ft 6 in Weight 147.8 kg [place] Body Weight (kg) 59.09 BMI 52.6 Subjective/Other Information Pt stated that her appetite is good and that she eats all of her meals. Noted lunch at bedside w/most eaten. Percent of energy/protein needs met: 93%/100% Burn Absent Trauma Absent #1 Nutrition Diagnosis Inadequate oral intake As Evidenced by Signs and Symptoms pt meeting 93% of calorie and 100% of protein needs Diagnosis Progress(for reassessment Resolved documentation) Is patient on ventilator? No Is Patient Ambulatory and/or Out of Bed Yes REE-([place]. Jeor-ambulatory/OOB) [ 2775.175 NUTR.[id number]] Kcal/Kg value to use for calculation 15 Approximate Energy Requirements Using 2217 kcal/Kg Calculation Used for Recommendations Kcal/kg Additional Notes Protein Needs: 71-77g (1.2-1. 3g/kg IBW) Fluid Needs: 1 ml/kcal Nutrition Intervention Change Diet Order: GI soft,Renal Goal #1 Continue to meet at least 75% of calorie and protein needs via PO intakes Anticipated Discharge Needs: Unable to determine at this time Follow-Up By: 10/02/18 Additional Comments Follow for PO and ONS intakes
[2018-10-02] MEDS ORDERED: NACL 0.9% 100 ML IV PRN (08:36)
--- NOTE | 2018-10-02 08:36 | Progress Note ---
Assessment and Plan 1. Acute kidney injury: LUCILA likely related Nephrotic syndrome. Patient was started on hemodialysis on 09/24/2018 due to worsening renal function, anasarca and suspected pulmonary edema. Tolerated hemodialysis well. Last dialyzed yesterday. Patient has been refusing HD / Isolated UF intermittently. Plan to do Isolated UF today. 2. Nephrotic syndrome: Possible causes include but not limited to FSGS, Minimal change, Membranous and Lupus nephritis. Complements, BI, ANCA, SPEP, GBM Ab, Hepatitis panel and HIV are negative. Made several attempts to do Kidney biospy but she refused. Patient is on Lovenox to prevent DVT. Continue Statin. Eventually she needs ACEI / ARB. 3. FEN: Volume overload, UF with HD. On Lasix. Hyperkalemia, improved. 4. VRE bacteriuria. 5. HTN. 6. Anemia: Present on admission. S/p PRBC. Epogen with HD. 7. Schizophrenia. 8. Medical non-compliance. Await outpatient HD chair. Subjective Date of service: 10/02/18 Principal diagnosis: coffee-ground emesis Interval history: Patient was seen and examined at the bedside. Doing ok. Objective - Vital Signs Vital signs: Vital Signs - 12hr 10/01/18 10/01/18 10/01/18 22:00 23:26 23:40 Temperature 98.0 F 98.0 F Pulse Rate 89 98 H Respiratory 24 18 22 Rate Blood Pressure 152/76 138/81 O2 Sat by Pulse 95 Oximetry 10/01/18 10/02/18 10/02/18 23:45 00:00 00:15 Temperature Pulse Rate 87 81 81 Respiratory Rate Blood Pressure 137/72 145/79 137/73 O2 Sat by Pulse Oximetry 10/02/18 10/02/18 10/02/18 00:30 00:45 01:00 Temperature Pulse Rate 87 90 85 Respiratory Rate Blood Pressure 128/64 131/73 139/67 O2 Sat by Pulse Oximetry 10/02/18 10/02/18 10/02/18 01:15 01:30 01:45 Temperature Pulse Rate 93 H 99 H 100 H Respiratory Rate Blood Pressure 137/80 147/85 145/81 O2 Sat by Pulse Oximetry 10/02/18 10/02/18 10/02/18 02:00 02:15 02:30 Temperature Pulse Rate 99 H 99 H 100 H Respiratory Rate Blood Pressure 139/85 129/86 139/75 O2 Sat by Pulse Oximetry 10/02/18 10/02/18 10/02/18 02:35 05:46 06:52 Temperature 98.0 F 98.1 F Pulse Rate 102 H 98 H 98 H Respiratory 20 18 Rate Blood Pressure 133/74 146/79 146/79 O2 Sat by Pulse 96 Oximetry - General Appearance General appearance: well-developed, well-nourished, appears stated age, obese, other (not in distress, right IJ tunnel catheter) EENT: ATNC, PERRL, hearing intact, vision intact Neck: supple Respiratory: Present: Clear to Ascultation Cardiology: regular, S1S2, no murmurs Gastrointestinal: normoactive bowel sounds, no tenderness, obese Integumentary: no rash, warm and dry Neurologic: no focal deficit, no asterixis, alert and oriented x3 Musculoskeletal: other (2+ edema of both LEs noted) - Lab 10/01/18 06:16 10/01/18 06:16 Most recent lab results Calcium 7.1 mg/dL (8.4-10.2) L 10/01/18 06:16 Phosphorus 4.60 mg/dL (2.5-4.5) H 09/27/18 07:42 Magnesium 2.60 mg/dL (1.7-2.3) H 09/17/18 15:17 Urine Creatinine 97.5 mg/dL (0.1-20.0) H 09/21/18 07:00 Ur Total Protein 24 Hr 1073.50 mg/dL (2-200) H 09/18/18 10:30 Urine Sodium 53 mmol/L 09/21/18 07:00 Urine Total Protein 708 mg/dL (5-11.8) H 09/21/18 07:00 Medications & Allergies - Medications Allergies/Adverse Reactions: Allergies No Known Allergies Allergy (Unverified 09/17/18 15:05) Home Medications: Home Medications Medication Instructions Recorded Confirmed Last Taken Type Divalproex Sodium [Depakote] 500 mg PO BID 09/17/18 09/17/18 Unknown History Haldol (Nf) 09/17/18 Unknown History Invega Sustenna 09/17/18 Unknown History diphenhydrAMINE [Benadryl CAP] 50 mg PO HS 09/17/18 09/17/18 Unknown History Active Medications: Generic Name Dose Route Start Last Admin Trade Name Freq PRN Reason Stop Dose Admin Acetaminophen 650 mg 09/18/18 02:40 09/27/18 05:36 Tylenol PO 650 mg Q4H PRN Administration Pain MILD(1-3)/Fever >100.5/MENDOZA Atorvastatin Calcium 40 mg 09/18/18 22:00 10/01/18 23:47 Lipitor PO 40 mg QHS LUZ Administration Diphenhydramine HCl 50 mg 09/18/18 22:00 10/01/18 23:47 Benadryl PO 50 mg HS LUZ Administration Divalproex Sodium 500 mg 09/18/18 10:00 10/01/18 23:[address] PO 500 mg BID LUZ Administration Enoxaparin Sodium 30 mg 09/20/18 22:00 10/02/18 03:21 Lovenox SUB-Q 30 mg QDAY@2200 LUZ Administration Epoetin Luis 20,000 unit 09/26/18 12:23 09/28/18 22:15 Procrit SUB-Q 20,000 unit KUSHAL PRN Administration hemodialysis Furosemide 80 mg 09/29/18 06:00 10/02/18 06:52 Lasix PO 80 mg 0600,1800 LUZ Administration Haloperidol 5 mg 09/25/18 22:00 10/01/18 23:47 Haldol PO 5 mg HS LUZ Administration Hydralazine HCl 10 mg 09/22/18 06:28 09/22/18 12:12 Apresoline IV 10 mg Q4H PRN Administration systolic b/p >165 Hydralazine HCl 50 mg 09/22/18 14:00 10/02/18 06:52 Apresoline PO 50 mg Q8HR LUZ Administration Hydromorphone HCl 0.5 mg 09/18/18 02:40 Dilaudid IV Q3H PRN Pain , Severe (7-10) Sodium Chloride 100 mls @ 999 mls/hr 10/01/18 08:00 Nacl 0.9% IV KUSHAL PRN Hypotension Ondansetron HCl 4 mg 09/18/18 02:40 09/23/18 08:45 Zofran IV 4 mg Q8H PRN Administration Nausea And Vomiting Oxycodone/Acetaminophen 1 tab 09/18/18 02:40 09/28/18 23:56 Percocet 5/325 PO 1 tab Q6H PRN Administration Pain, Moderate (4-6) Pantoprazole Sodium 40 mg 10/02/18 10:00 Protonix PO DAILY LUZ Sodium Chloride 10 ml 09/18/18 10:00 10/01/18 23:47 Sodium Chloride Flush Syringe 10 Ml IV 10 ml BID LUZ Administration Sodium Chloride 10 ml 09/18/18 02:40 Sodium Chloride Flush Syringe 10 Ml IV PRN PRN LINE FLUSH
--- NOTE | 2018-10-02 10:24 | Progress Note ---
Assessment and Plan Cultures: 09/20/2018 and blood culture: No growth 09/21/2018 urine culture: 10K - 100K Enterococcus faecium (VRE) A/P: 47-year-old female with hypertension, obesity, schizophrenia presented to the emergency room on 09/17/2018 with complaints of worsening bilateral leg swelling, shortness of breath and weight gain. She was noted to have elevated creatinine with nephrotic range proteinuria. Also with: 1) VRE UTI versus asymptomatic bacteriuria: Patient without any symptoms, UA with mild pyuria of 15 WBC. Could be contaminant as well. Not clinically concerning for pyelonephritis. At most, possible cystitis. Considering that she has nephrotic syndrome and possibly some immune compromise related to that, can treat with PO Amoxicillin x 3 days. Aminopenicillins concentrate very well in the urinary tract and overcome resistant Enterococcus. 2) Acute renal failure: with nephrotic syndrome. on HD now. Nephrology following. HIV non reactive. BI, C3, C4, ANCA negative. Renally dose abx. 3) Morbid obesity 4) Anemia, mild thrombocytopenia Recs: PO Amoxicillin 500 mg daily, D3 of D3. last dose today Continue contact isolation due to VRE Clinically stable, ID is signing off d/w Dr. Lidia Knott, [facility] M: [id number] O:[phone] Subjective Date of service: 10/02/18 Principal diagnosis: coffee-ground emesis Objective - Constitutional Vitals: Vital Signs Temp Pulse Resp BP Pulse Ox 98.1 F 98 H 18 146/79 96 10/02/18 05:46 10/02/18 06:52 10/02/18 05:46 10/02/18 06:52 10/02/18 05:46 Temperature -Last 24 Hours Temperature 98.1 F Temperature 98.0 F Temperature 98.0 F Temperature 98.0 F Temperature 98.0 F - Labs CBC & Chem 7: 10/01/18 06:16 10/01/18 06:16
[2018-10-02] MEDS: PROTONIX PO SCH (11:39)
[2018-10-02] MEDS: SODIUM CHLORIDE FLUSH SYRINGE 10 ML IV SCH (11:39)
--- NOTE | 2018-10-02 14:01 | Progress Note ---
Assessment and Plan Patient is suppose to be on 2 litres o2.Not using her O2 as recommended. O2 saturation 98%. No acute respiratory distress.Recommend to keep O2 all the time. - Patient Problems (1) Pneumonia involving left lung Current Visit: Yes Status: Acute Plan to address problem: Patient is off the antibiotics. Chest xray reported volume Over load. Patient afebrile. No leukocytosis. (2) Acute exacerbation of congestive heart failure Current Visit: Yes Status: Acute Plan to address problem: Management as per cardiology. (3) Nephrotic syndrome Current Visit: Yes Status: Acute Plan to address problem: Management as per nephrology. Subjective Date of service: 10/02/18 Principal diagnosis: coffee-ground emesis Interval history: Patient is suppose to be on 2 litres o2.Not using her O2 as recommended. O2 saturation 98%. No acute respiratory distress.Recommend to keep O2 all the time. Objective Vital Signs - 12hr 10/02/18 10/02/18 10/02/18 02:00 02:15 02:30 Temperature Pulse Rate 99 H 99 H 100 H Respiratory Rate Blood Pressure 139/85 129/86 139/75 Blood Pressure [Left] O2 Sat by Pulse Oximetry 10/02/18 10/02/18 10/02/18 02:35 05:46 06:52 Temperature 98.0 F 98.1 F Pulse Rate 102 H 98 H 98 H Respiratory 20 18 Rate Blood Pressure 133/74 146/79 146/79 Blood Pressure [Left] O2 Sat by Pulse 96 Oximetry 10/02/18 12:19 Temperature 98.5 F Pulse Rate 105 H Respiratory 20 Rate Blood Pressure Blood Pressure 164/90 [Left] O2 Sat by Pulse 98 Oximetry Constitutional: no acute distress, asleep Eyes: non-icteric ENT: oropharynx moist Neck: supple, no JVD Ascultation: Bilateral: diminished breath sounds Cardiovascular: regular rate and rhythm Gastrointestinal: normoactive bowel sounds, soft, non-tender Integumentary: normal Extremities: no cyanosis, no edema Neurologic: non-focal exam, pupils equal and round, CN II-XII normal Psychiatric: depressed CBC and BMP: 10/01/18 06:16 10/01/18 06:16 ABG, PT/INR, D-dimer: ABG POC ABG pH 7.375 (7.35-7.45) 09/23/18 15:06 POC ABG pCO2 36.3 (35-45) 09/23/18 15:06 POC ABG pO2 99 (80-105) 09/23/18 15:06 POC ABG HCO3 21.2 09/23/18 15:06 POC ABG Total CO2 22 09/23/18 15:06 POC ABG O2 Sat 98 09/23/18 15:06 PT/INR, D-dimer PT 12.7 Sec. (12.2-14.9) 09/26/18 Unknown INR 0.90 (0.87-1.13) 09/26/18 Unknown Abnormal lab findings: Abnormal Labs 09/17/18 09/17/18 09/17/18 15:17 15:17 15:17 WBC RBC 3.34 L Hgb 9.1 L Hct 27.9 L MCH 27 L RDW 20.5 H Plt Count Lymph % (Auto) [place] % (Auto) 8.8 H [place] # APTT 22.2 L Potassium Chloride 107.7 H BUN 37 H Creatinine 2.3 H Glucose Calcium 7.4 L Phosphorus Magnesium 2.60 H ALT Total Creatine Kinase NT-Pro-B Natriuret Pep 992.5 H Serum Total Protein Total Protein 4.1 L Albumin 1.3 L Gamma Globulins PEP Interpretation Urine WBC (Auto) Urine Creatinine Ur Creatinine 24 Hour Ur Total Protein 24 Hr Urine Total Protein Valproic Acid Crossmatch 09/17/18 09/18/18 09/18/18 17:18 05:22 05:22 WBC 4.4 L RBC 3.06 L Hgb 8.5 L Hct 25.5 L MCH RDW 20.0 H Plt Count Lymph % (Auto) 36.5 H [place] % (Auto) 12.3 H [place] # APTT Potassium Chloride 107.2 H BUN 37 H Creatinine 2.2 H Glucose Calcium 7.4 L Phosphorus Magnesium ALT 6 L Total Creatine Kinase NT-Pro-B Natriuret Pep Serum Total Protein Total Protein 3.9 L Albumin 1.4 L Gamma Globulins PEP Interpretation Urine WBC (Auto) 15.0 H Urine Creatinine Ur Creatinine 24 Hour Ur Total Protein 24 Hr Urine Total Protein Valproic Acid Crossmatch 09/18/18 09/19/18 09/19/18 10:30 05:45 05:45 WBC RBC Hgb Hct MCH RDW Plt Count Lymph % (Auto) [place] % (Auto) [place] # APTT Potassium Chloride BUN 37 H Creatinine 2.1 H Glucose Calcium 7.3 L Phosphorus Magnesium ALT Total Creatine Kinase NT-Pro-B Natriuret Pep Serum Total Protein 3.4 L Total Protein Albumin 1.2 L Gamma Globulins 0.5 L PEP Interpretation see below H Urine WBC (Auto) Urine Creatinine 147.5 H Ur Creatinine 24 Hour 0.7 L Ur Total Protein 24 Hr 1073.50 H Urine Total Protein 226 H Valproic Acid Crossmatch 09/20/18 09/20/18 09/21/18 04:56 15:15 06:13 WBC RBC 2.84 L Hgb 7.8 L Hct 24.1 L MCH 27 L RDW 19.8 H Plt Count Lymph % (Auto) [place] % (Auto) 12.9 H [place] # APTT Potassium 5.4 H 5.5 H Chloride 108.2 H BUN 38 H Creatinine 2.4 H Glucose Calcium 7.2 L Phosphorus Magnesium ALT Total Creatine Kinase NT-Pro-B Natriuret Pep Serum Total Protein Total Protein Albumin Gamma Globulins PEP Interpretation Urine WBC (Auto) Urine Creatinine Ur Creatinine 24 Hour Ur Total Protein 24 Hr Urine Total Protein Valproic Acid Crossmatch 09/21/18 09/21/18 09/22/18 06:13 07:00 10:12 WBC RBC Hgb Hct MCH RDW Plt Count Lymph % (Auto) [place] % (Auto) [place] # APTT Potassium 5.2 H Chloride 108.2 H 111.5 H BUN 39 H 40 H Creatinine 2.7 H 3.1 H Glucose Calcium 7.3 L 7.1 L Phosphorus Magnesium ALT Total Creatine Kinase NT-Pro-B Natriuret Pep Serum Total Protein Total Protein Albumin Gamma Globulins PEP Interpretation Urine WBC (Auto) Urine Creatinine 97.5 H Ur Creatinine 24 Hour Ur Total Protein 24 Hr Urine Total Protein 708 H Valproic Acid Crossmatch 09/23/18 09/25/18 09/25/18 04:40 07:30 07:30 WBC RBC 2.55 L Hgb 6.9 L Hct 21.5 L MCH 27 L RDW 19.5 H Plt Count Lymph % (Auto) [place] % (Auto) 12.2 H [place] # APTT Potassium Chloride 109.1 H BUN 42 H 33 H Creatinine 3.8 H 4.4 H Glucose 102 H Calcium 7.2 L 7.3 L Phosphorus 5.00 H Magnesium ALT Total Creatine Kinase NT-Pro-B Natriuret Pep Serum Total Protein Total Protein Albumin Gamma Globulins PEP Interpretation Urine WBC (Auto) Urine Creatinine Ur Creatinine 24 Hour Ur Total Protein 24 Hr Urine Total Protein Valproic Acid Crossmatch 09/26/18 09/26/18 09/26/18 07:17 07:17 07:17 WBC RBC Hgb 6.7 L Hct 20.0 L MCH RDW Plt Count Lymph % (Auto) [place] % (Auto) [place] # APTT Potassium Chloride BUN 24 H Creatinine 4.1 H Glucose Calcium 7.0 L Phosphorus Magnesium ALT Total Creatine Kinase 559 H NT-Pro-B Natriuret Pep Serum Total Protein Total Protein Albumin Gamma Globulins PEP Interpretation Urine WBC (Auto) Urine Creatinine Ur Creatinine 24 Hour Ur Total Protein 24 Hr Urine Total Protein Valproic Acid 13.2 L Crossmatch 09/26/18 09/27/18 09/27/18 Unknown 07:42 07:42 WBC RBC 2.16 L Hgb 6.0 L Hct 18.1 L* MCH RDW 18.9 H Plt Count 130 L Lymph % (Auto) [place] % (Auto) 15.8 H [place] # APTT 36.7 H Potassium Chloride 108.4 H BUN 26 H Creatinine 4.8 H Glucose Calcium 7.1 L Phosphorus 4.60 H Magnesium ALT Total Creatine Kinase NT-Pro-B Natriuret Pep Serum Total Protein Total Protein Albumin Gamma Globulins PEP Interpretation Urine WBC (Auto) Urine Creatinine Ur Creatinine 24 Hour Ur Total Protein 24 Hr Urine Total Protein Valproic Acid Crossmatch 09/27/18 09/28/18 09/29/18 10:43 04:43 05:07 WBC RBC 3.29 L 3.28 L Hgb 8.9 L 8.9 L Hct 27.2 L D 27.1 L MCH 27 L 27 L RDW 19.3 H 19.3 H Plt Count 130 L 133 L Lymph % (Auto) [place] % (Auto) 15.6 H [place] # 0.9 H APTT Potassium Chloride BUN Creatinine Glucose Calcium Phosphorus Magnesium ALT Total Creatine Kinase NT-Pro-B Natriuret Pep Serum Total Protein Total Protein Albumin Gamma Globulins PEP Interpretation Urine WBC (Auto) Urine Creatinine Ur Creatinine 24 Hour Ur Total Protein 24 Hr Urine Total Protein Valproic Acid Crossmatch See Detail 09/29/18 10/01/18 10/01/18 05:07 06:16 06:16 WBC RBC 3.18 L Hgb 8.6 L Hct 26.2 L MCH 27 L RDW 19.3 H Plt Count Lymph % (Auto) [place] % (Auto) [place] # APTT Potassium Chloride BUN 22 H 22 H Creatinine 5.4 H 6.0 H Glucose Calcium 7.1 L 7.1 L Phosphorus Magnesium ALT Total Creatine Kinase NT-Pro-B Natriuret Pep Serum Total Protein Total Protein Albumin Gamma Globulins PEP Interpretation Urine WBC (Auto) Urine Creatinine Ur Creatinine 24 Hour Ur Total Protein 24 Hr Urine Total Protein Valproic Acid Crossmatch
[2018-10-03] MEDS: APRESOLINE PO SCH ×4 (00:08→23:36)
[2018-10-03] MEDS: BENADRYL PO SCH ×2 (00:09→23:36)
[2018-10-03] MEDS: HALDOL PO SCH ×2 (00:09→23:36)
[2018-10-03] MEDS: LOVENOX SUB-Q SCH ×2 (00:10→23:36)
[2018-10-03] MEDS: SODIUM CHLORIDE FLUSH SYRINGE 10 ML IV SCH ×3 (00:14→23:37)
[2018-10-03] MEDS: LASIX PO SCH ×2 (06:12→19:23)
[2018-10-03] MEDS: PROTONIX PO SCH (09:36)
--- NOTE | 2018-10-03 10:53 | Progress Note ---
Assessment and Plan Patient sleeping at this time.Patient is suppose to be on 2 litres o2.Not using her O2 as recommended. O2 saturation 98%. No acute respiratory distress.Recommend to keep O2 all the time. - Patient Problems (1) Pneumonia involving left lung Current Visit: Yes Status: Acute Plan to address problem: Patient is off the antibiotics. Chest xray reported volume Over load. Patient afebrile. No leukocytosis. (2) Acute exacerbation of congestive heart failure Current Visit: Yes Status: Acute Plan to address problem: Management as per cardiology. (3) Nephrotic syndrome Current Visit: Yes Status: Acute Plan to address problem: Management as per nephrology. Subjective Date of service: 10/03/18 Principal diagnosis: coffee-ground emesis Interval history: Patient sleeping at this time.Patient is suppose to be on 2 litres o2.Not using her O2 as recommended. O2 saturation 98%. No acute respiratory distress.Recommend to keep O2 all the time. Objective Vital Signs - 12hr 10/03/18 10/03/18 00:08 06:12 Pulse Rate 94 H 85 Blood Pressure 142/84 149/86 Constitutional: no acute distress, asleep Eyes: non-icteric ENT: oropharynx moist Neck: supple, no JVD Ascultation: Bilateral: diminished breath sounds Cardiovascular: regular rate and rhythm Gastrointestinal: normoactive bowel sounds, soft, non-tender Integumentary: normal Extremities: no cyanosis, no edema Neurologic: non-focal exam, pupils equal and round, CN II-XII normal Psychiatric: depressed CBC and BMP: 10/01/18 06:16 10/01/18 06:16 ABG, PT/INR, D-dimer: ABG POC ABG pH 7.375 (7.35-7.45) 09/23/18 15:06 POC ABG pCO2 36.3 (35-45) 09/23/18 15:06 POC ABG pO2 99 (80-105) 09/23/18 15:06 POC ABG HCO3 21.2 09/23/18 15:06 POC ABG Total CO2 22 09/23/18 15:06 POC ABG O2 Sat 98 09/23/18 15:06 PT/INR, D-dimer PT 12.7 Sec. (12.2-14.9) 09/26/18 Unknown INR 0.90 (0.87-1.13) 09/26/18 Unknown Abnormal lab findings: Abnormal Labs 09/17/18 09/17/18 09/17/18 15:17 15:17 15:17 WBC RBC 3.34 L Hgb 9.1 L Hct 27.9 L MCH 27 L RDW 20.5 H Plt Count Lymph % (Auto) [place] % (Auto) 8.8 H [place] # APTT 22.2 L Potassium Chloride 107.7 H BUN 37 H Creatinine 2.3 H Glucose Calcium 7.4 L Phosphorus Magnesium 2.60 H ALT Total Creatine Kinase NT-Pro-B Natriuret Pep 992.5 H Serum Total Protein Total Protein 4.1 L Albumin 1.3 L Gamma Globulins PEP Interpretation Urine WBC (Auto) Urine Creatinine Ur Creatinine 24 Hour Ur Total Protein 24 Hr Urine Total Protein Valproic Acid Crossmatch 09/17/18 09/18/18 09/18/18 17:18 05:22 05:22 WBC 4.4 L RBC 3.06 L Hgb 8.5 L Hct 25.5 L MCH RDW 20.0 H Plt Count Lymph % (Auto) 36.5 H [place] % (Auto) 12.3 H [place] # APTT Potassium Chloride 107.2 H BUN 37 H Creatinine 2.2 H Glucose Calcium 7.4 L Phosphorus Magnesium ALT 6 L Total Creatine Kinase NT-Pro-B Natriuret Pep Serum Total Protein Total Protein 3.9 L Albumin 1.4 L Gamma Globulins PEP Interpretation Urine WBC (Auto) 15.0 H Urine Creatinine Ur Creatinine 24 Hour Ur Total Protein 24 Hr Urine Total Protein Valproic Acid Crossmatch 09/18/18 09/19/18 09/19/18 10:30 05:45 05:45 WBC RBC Hgb Hct MCH RDW Plt Count Lymph % (Auto) [place] % (Auto) [place] # APTT Potassium Chloride BUN 37 H Creatinine 2.1 H Glucose Calcium 7.3 L Phosphorus Magnesium ALT Total Creatine Kinase NT-Pro-B Natriuret Pep Serum Total Protein 3.4 L Total Protein Albumin 1.2 L Gamma Globulins 0.5 L PEP Interpretation see below H Urine WBC (Auto) Urine Creatinine 147.5 H Ur Creatinine 24 Hour 0.7 L Ur Total Protein 24 Hr 1073.50 H Urine Total Protein 226 H Valproic Acid Crossmatch 09/20/18 09/20/18 09/21/18 04:56 15:15 06:13 WBC RBC 2.84 L Hgb 7.8 L Hct 24.1 L MCH 27 L RDW 19.8 H Plt Count Lymph % (Auto) [place] % (Auto) 12.9 H [place] # APTT Potassium 5.4 H 5.5 H Chloride 108.2 H BUN 38 H Creatinine 2.4 H Glucose Calcium 7.2 L Phosphorus Magnesium ALT Total Creatine Kinase NT-Pro-B Natriuret Pep Serum Total Protein Total Protein Albumin Gamma Globulins PEP Interpretation Urine WBC (Auto) Urine Creatinine Ur Creatinine 24 Hour Ur Total Protein 24 Hr Urine Total Protein Valproic Acid Crossmatch 09/21/18 09/21/18 09/22/18 06:13 07:00 10:12 WBC RBC Hgb Hct MCH RDW Plt Count Lymph % (Auto) [place] % (Auto) [place] # APTT Potassium 5.2 H Chloride 108.2 H 111.5 H BUN 39 H 40 H Creatinine 2.7 H 3.1 H Glucose Calcium 7.3 L 7.1 L Phosphorus Magnesium ALT Total Creatine Kinase NT-Pro-B Natriuret Pep Serum Total Protein Total Protein Albumin Gamma Globulins PEP Interpretation Urine WBC (Auto) Urine Creatinine 97.5 H Ur Creatinine 24 Hour Ur Total Protein 24 Hr Urine Total Protein 708 H Valproic Acid Crossmatch 09/23/18 09/25/18 09/25/18 04:40 07:30 07:30 WBC RBC 2.55 L Hgb 6.9 L Hct 21.5 L MCH 27 L RDW 19.5 H Plt Count Lymph % (Auto) [place] % (Auto) 12.2 H [place] # APTT Potassium Chloride 109.1 H BUN 42 H 33 H Creatinine 3.8 H 4.4 H Glucose 102 H Calcium 7.2 L 7.3 L Phosphorus 5.00 H Magnesium ALT Total Creatine Kinase NT-Pro-B Natriuret Pep Serum Total Protein Total Protein Albumin Gamma Globulins PEP Interpretation Urine WBC (Auto) Urine Creatinine Ur Creatinine 24 Hour Ur Total Protein 24 Hr Urine Total Protein Valproic Acid Crossmatch 09/26/18 09/26/18 09/26/18 07:17 07:17 07:17 WBC RBC Hgb 6.7 L Hct 20.0 L MCH RDW Plt Count Lymph % (Auto) [place] % (Auto) [place] # APTT Potassium Chloride BUN 24 H Creatinine 4.1 H Glucose Calcium 7.0 L Phosphorus Magnesium ALT Total Creatine Kinase 559 H NT-Pro-B Natriuret Pep Serum Total Protein Total Protein Albumin Gamma Globulins PEP Interpretation Urine WBC (Auto) Urine Creatinine Ur Creatinine 24 Hour Ur Total Protein 24 Hr Urine Total Protein Valproic Acid 13.2 L Crossmatch 09/26/18 09/27/18 09/27/18 Unknown 07:42 07:42 WBC RBC 2.16 L Hgb 6.0 L Hct 18.1 L* MCH RDW 18.9 H Plt Count 130 L Lymph % (Auto) [place] % (Auto) 15.8 H [place] # APTT 36.7 H Potassium Chloride 108.4 H BUN 26 H Creatinine 4.8 H Glucose Calcium 7.1 L Phosphorus 4.60 H Magnesium ALT Total Creatine Kinase NT-Pro-B Natriuret Pep Serum Total Protein Total Protein Albumin Gamma Globulins PEP Interpretation Urine WBC (Auto) Urine Creatinine Ur Creatinine 24 Hour Ur Total Protein 24 Hr Urine Total Protein Valproic Acid Crossmatch 09/27/18 09/28/18 09/29/18 10:43 04:43 05:07 WBC RBC 3.29 L 3.28 L Hgb 8.9 L 8.9 L Hct 27.2 L D 27.1 L MCH 27 L 27 L RDW 19.3 H 19.3 H Plt Count 130 L 133 L Lymph % (Auto) [place] % (Auto) 15.6 H [place] # 0.9 H APTT Potassium Chloride BUN Creatinine Glucose Calcium Phosphorus Magnesium ALT Total Creatine Kinase NT-Pro-B Natriuret Pep Serum Total Protein Total Protein Albumin Gamma Globulins PEP Interpretation Urine WBC (Auto) Urine Creatinine Ur Creatinine 24 Hour Ur Total Protein 24 Hr Urine Total Protein Valproic Acid Crossmatch See Detail 09/29/18 10/01/18 10/01/18 05:07 06:16 06:16 WBC RBC 3.18 L Hgb 8.6 L Hct 26.2 L MCH 27 L RDW 19.3 H Plt Count Lymph % (Auto) [place] % (Auto) [place] # APTT Potassium Chloride BUN 22 H 22 H Creatinine 5.4 H 6.0 H Glucose Calcium 7.1 L 7.1 L Phosphorus Magnesium ALT Total Creatine Kinase NT-Pro-B Natriuret Pep Serum Total Protein Total Protein Albumin Gamma Globulins PEP Interpretation Urine WBC (Auto) Urine Creatinine Ur Creatinine 24 Hour Ur Total Protein 24 Hr Urine Total Protein Valproic Acid Crossmatch
--- NOTE | 2018-10-03 13:15 | Progress Note ---
Assessment and Plan Patient is a 47 yo woman with a history of Obesity, HTN and Schizophrenia who presented to the ER with bilateral leg swelling, SOB and increase in the abdominal girth and weight gain of ~86 pounds in 10 weeks. Patient denies any h/o heart disease or Liver problem. Labs were significant for creatinine of 2.2, Hb 8.5, albumin 1.4 and 3+ protein in the urine. Patient was admitted with provisional diagnosis of Nephrotic syndrome. Nephrology was consulted for further evaluation and recommended Kidney biopsy; which patient refused on m ultiple occasions so Radiology declined to re-schedule the procedure. Also, During hospital coarse, she was found to have coffee ground emesis and EGD was done on 09/26/18 and showed M-W tear. Her hemoglobin was steadily dropping and she initially refused blood transfusion until Mr. Galeas convinced her to get the blood transfusion and do Hemodialysis which she refuses at times. 09/26/18 EGD Pre-op diagnosis: gi bleed Post-op diagnosis: same Findings: EGD: large hiatal hernia - m-w tear with pigmented area jut above g-e junction - mild gastritis - negative other Procedure: EGD =Nephrotic syndrome. Urine protein quantification pending. Follow BI, ANCA and complements. Renal ultrasound negative. Patient unfortunately refused kidney biopsy. = VRE UTI: Possible cystitis. ID recommended treating patient with amoxicillin for 3 days that banding on 09/06/18 =Coffee-ground emesis with Radha Mendez Tear. GI consulted H&H dropped and s he refused blood transfusion. H&H stable =Acute on chronic Blood loss anemia due to above =Right lower extremity thigh pain. Doppler lower extremities bilaterally negative for DVT =Left breast swelling, unknown at present. Need outpatient Mammogram and U/S =Morbid obesity, bmi 55.2: lifestyle modification =Medical noncompliance. Patient intermittently at times refusing care. Psych/Mik told me she has decision making capacity. =Schizophrenia, Bipolar disorder. Continue current medications.. As above. Psych consulted =Hyperkalemia. Kayexalate. Recheck BMP in the morning. =Sepsis. Maybe from UTI as chest x-ray shows no evidence of pneumonia. Present on admission. Continue IV antibiotics. Etiology secondary to pneumonia and UTI. =ARF, vasomotor nephropathy, poa =VRE: ID is following, ordered isolation Patient is apart of [facility] Outreach and ACT Team, call, psychiatrist Dr. Tatum @ [phone] and If Dr. Tatum is not available, call coordinator of care, Rao Galeas [phone]. Disposition: continue inpatient care, needs HD dialysis setup and new placement. Radiology has refused to re-schedule the Kidney biopsy because they have tired 3 times and pt refuses. Subjective Date of service: 10/03/18 Principal diagnosis: coffee-ground emesis, nephrotic syndrome, sepsis left lower pneumonia Interval history: Laying quietly in bed. No apparent distress. Denies any fever. Objective - Exam Narrative Exam: Constitutional: Generalized swelling. In no distress Head: Normocephalic atraumatic Eyes: Pupils are equal round and reactive to light Nose: No enlarged turbinates, no septal deviation. Mouth: Moist mucous membranes. Neck: Supple no thyromegaly. No bruit. No JVD Heart: Regular rate and rhythm, S1-S2 normal. No rubs murmurs or gallop Lungs: Clear to auscultation bilaterally. no rales or rhonchi Abdomen: Soft, nontender. Bowel sound are present. Extremities: 2+ edema, no cyanosis, no clubbing. Neuro: Alert oriented Oriented x3. No focal sensory or motor deficit. Skin: No rashes or hyperpigmented spots Musculoskeletal system: No joint pain or swelling Hematological: No petechia or subcutanous hemorrhages. Immunological: No multiple septic spots on the skin Lymphatic: No generalized lymphadenopathy Psychiatry: Euthymic. Calm. - Constitutional Vitals: Vital Signs - 12hr 10/03/18 06:12 Pulse Rate 85 Blood Pressure 149/86 - Labs CBC & Chem 7: 10/01/18 06:16 10/01/18 06:16
[2018-10-03] MEDS ORDERED: NACL 0.9% 100 ML IV PRN (15:15)
--- NOTE | 2018-10-03 17:55 | Progress Note ---
Assessment and Plan 1. Acute kidney injury: LUCILA likely related Nephrotic syndrome. Patient was started on hemodialysis on 09/24/2018 due to worsening renal function, anasarca and suspected pulmonary edema. Tolerated hemodialysis well. Last dialyzed 2 days ago. Patient has been refusing HD / Isolated UF intermittently. Patient refused HD today. 2. Nephrotic syndrome: Possible causes include but not limited to FSGS, Minimal change, Membranous and Lupus nephritis. Complements, BI, ANCA, SPEP, GBM Ab, Hepatitis panel and HIV are negative. Made several attempts to do Kidney biospy but she refused. Patient is on Lovenox to prevent DVT. Continue Statin. Will start on ARB. 3. FEN: Volume overload, UF with HD. On Lasix. Hyperkalemia, improved. 4. VRE bacteriuria. 5. HTN. 6. Anemia: Present on admission. S/p PRBC. Epogen with HD. 7. Schizophrenia. 8. Medical non-compliance. Await outpatient HD chair. Subjective Date of service: 10/03/18 Principal diagnosis: coffee-ground emesis Interval history: Patient was seen and examined at the bedside. Doing ok. Objective - Vital Signs Vital signs: Vital Signs - 12hr 10/03/18 10/03/18 10/03/18 06:12 12:34 15:28 Temperature 98.1 F Pulse Rate 85 98 H Respiratory 20 Rate Blood Pressure 149/86 145/76 131/92 O2 Sat by Pulse 98 Oximetry 10/03/18 10/03/18 15:31 17:20 Temperature 97.9 F Pulse Rate 102 H Respiratory 20 Rate Blood Pressure 131/92 149/69 O2 Sat by Pulse 96 Oximetry - General Appearance General appearance: well-developed, well-nourished, appears stated age, obese, other (not in distress, right IJ tunnel catheter) EENT: ATNC, PERRL, hearing intact, vision intact Neck: supple Respiratory: Present: Clear to Ascultation Cardiology: regular, S1S2, no murmurs Gastrointestinal: normoactive bowel sounds, no tenderness, no distended Integumentary: no rash, warm and dry Neurologic: no focal deficit, no asterixis, alert and oriented x3 Musculoskeletal: other (2+ edema of both LEs noted) - Lab 10/01/18 06:16 10/01/18 06:16 Most recent lab results Calcium 7.1 mg/dL (8.4-10.2) L 10/01/18 06:16 Phosphorus 4.60 mg/dL (2.5-4.5) H 09/27/18 07:42 Magnesium 2.60 mg/dL (1.7-2.3) H 09/17/18 15:17 Urine Creatinine 97.5 mg/dL (0.1-20.0) H 09/21/18 07:00 Ur Total Protein 24 Hr 1073.50 mg/dL (2-200) H 09/18/18 10:30 Urine Sodium 53 mmol/L 09/21/18 07:00 Urine Total Protein 708 mg/dL (5-11.8) H 09/21/18 07:00 Medications & Allergies - Medications Allergies/Adverse Reactions: Allergies No Known Allergies Allergy (Unverified 09/17/18 15:05) Home Medications: Home Medications Medication Instructions Recorded Confirmed Last Taken Type Divalproex Sodium [Depakote] 500 mg PO BID 09/17/18 09/17/18 Unknown History Haldol (Nf) 09/17/18 Unknown History Invega Sustenna 09/17/18 Unknown History diphenhydrAMINE [Benadryl CAP] 50 mg PO HS 09/17/18 09/17/18 Unknown History Active Medications: Generic Name Dose Route Start Last Admin Trade Name Freq PRN Reason Stop Dose Admin Acetaminophen 650 mg 09/18/18 02:40 09/27/18 05:36 Tylenol PO 650 mg Q4H PRN Administration Pain MILD(1-3)/Fever >100.5/MENDOZA Atorvastatin Calcium 40 mg 09/18/18 22:00 10/03/18 00:09 Lipitor PO 40 mg QHS LUZ Administration Diphenhydramine HCl 50 mg 09/18/18 22:00 10/03/18 00:09 Benadryl PO 50 mg HS LUZ Administration Divalproex Sodium 500 mg 09/18/18 10:00 10/03/18 09:[address] PO 500 mg BID LUZ Administration Enoxaparin Sodium 30 mg 09/20/18 22:00 10/03/18 00:10 Lovenox SUB-Q 30 mg QDAY@2200 LUZ Administration Epoetin Luis 20,000 unit 09/26/18 12:23 09/28/18 22:15 Procrit SUB-Q 20,000 unit KUSHAL PRN Administration hemodialysis Furosemide 80 mg 09/29/18 06:00 10/03/18 06:12 Lasix PO 80 mg 0600,1800 LUZ Administration Haloperidol 5 mg 09/25/18 22:00 10/03/18 00:09 Haldol PO 5 mg HS LUZ Administration Hydralazine HCl 10 mg 09/22/18 06:28 09/22/18 12:12 Apresoline IV 10 mg Q4H PRN Administration systolic b/p >165 Hydralazine HCl 50 mg 09/22/18 14:00 10/03/18 15:31 Apresoline PO Not Given Q8HR LUZ Hydromorphone HCl 0.5 mg 09/18/18 02:40 Dilaudid IV Q3H PRN Pain , Severe (7-10) Sodium Chloride 100 mls @ 999 mls/hr 10/03/18 15:15 Nacl 0.9% IV KUSHAL PRN Hypotension Ondansetron HCl 4 mg 09/18/18 02:40 09/23/18 08:45 Zofran IV 4 mg Q8H PRN Administration Nausea And Vomiting Oxycodone/Acetaminophen 1 tab 09/18/18 02:40 09/28/18 23:56 Percocet 5/325 PO 1 tab Q6H PRN Administration Pain, Moderate (4-6) Pantoprazole Sodium 40 mg 10/02/18 10:00 10/03/18 09:36 Protonix PO 40 mg DAILY LUZ Administration Sodium Chloride 10 ml 09/18/18 10:00 10/03/18 09:36 Sodium Chloride Flush Syringe 10 Ml IV 10 ml BID LUZ Administration Sodium Chloride 10 ml 09/18/18 02:40 Sodium Chloride Flush Syringe 10 Ml IV PRN PRN LINE FLUSH
[2018-10-04] MEDS: LASIX PO SCH ×2 (05:41→18:30)
[2018-10-04] MEDS: APRESOLINE PO SCH ×3 (05:42→23:21)
--- NOTE | 2018-10-04 09:05 | Progress Note ---
Assessment and Plan 1. Acute kidney injury: LUCILA likely related Nephrotic syndrome. Patient was started on hemodialysis on 09/24/2018 due to worsening renal function, anasarca and suspected pulmonary edema. Tolerated hemodialysis well. Last dialyzed 3 days ago. Patient has been refusing HD / Isolated UF intermittently. Plan to do HD today, informed HD nurse. 2. Nephrotic syndrome: Possible causes include but not limited to FSGS, Minimal change, Membranous and Lupus nephritis. Complements, BI, ANCA, SPEP, GBM Ab, Hepatitis panel and HIV are negative. Made several attempts to do Kidney biospy but she refused. Patient is on Lovenox to prevent DVT. Continue ARB and Statin. 3. FEN: Volume overload, UF with HD. On Lasix. Hyperkalemia, improved. 4. VRE bacteriuria. 5. HTN. 6. Anemia: Present on admission. S/p PRBC. Epogen with HD. 7. Schizophrenia. 8. Medical non-compliance. Await outpatient HD chair. Subjective Date of service: 10/04/18 Principal diagnosis: coffee-ground emesis Interval history: Patient was seen and examined at the bedside. Doing ok. Objective - Vital Signs Vital signs: Vital Signs - 12hr 10/04/18 10/04/18 00:21 05:37 Temperature 97.9 F 98.1 F Pulse Rate 91 H 88 Respiratory 20 20 Rate Blood Pressure 159/95 141/76 O2 Sat by Pulse 96 95 Oximetry - General Appearance General appearance: well-developed, well-nourished, appears stated age, obese, other (not in distress, right IJ tunnel catheter) EENT: ATNC, PERRL, mucous membranes moist, hearing intact, vision intact Neck: supple Respiratory: Present: Clear to Ascultation Cardiology: regular, S1S2, no murmurs Gastrointestinal: normoactive bowel sounds Integumentary: no rash, warm and dry Neurologic: no focal deficit, no asterixis, alert and oriented x3 Musculoskeletal: other (2+ edema of both LEs noted) - Lab 10/01/18 06:16 10/01/18 06:16 Most recent lab results Calcium 7.1 mg/dL (8.4-10.2) L 10/01/18 06:16 Phosphorus 4.60 mg/dL (2.5-4.5) H 09/27/18 07:42 Magnesium 2.60 mg/dL (1.7-2.3) H 09/17/18 15:17 Urine Creatinine 97.5 mg/dL (0.1-20.0) H 09/21/18 07:00 Ur Total Protein 24 Hr 1073.50 mg/dL (2-200) H 09/18/18 10:30 Urine Sodium 53 mmol/L 09/21/18 07:00 Urine Total Protein 708 mg/dL (5-11.8) H 09/21/18 07:00 Medications & Allergies - Medications Allergies/Adverse Reactions: Allergies No Known Allergies Allergy (Unverified 09/17/18 15:05) Home Medications: Home Medications Medication Instructions Recorded Confirmed Last Taken Type Divalproex Sodium [Depakote] 500 mg PO BID 09/17/18 09/17/18 Unknown History Haldol (Nf) 09/17/18 Unknown History Invega Sustenna 09/17/18 Unknown History diphenhydrAMINE [Benadryl CAP] 50 mg PO HS 09/17/18 09/17/18 Unknown History Active Medications: Generic Name Dose Route Start Last Admin Trade Name Freq PRN Reason Stop Dose Admin Acetaminophen 650 mg 09/18/18 02:40 09/27/18 05:36 Tylenol PO 650 mg Q4H PRN Administration Pain MILD(1-3)/Fever >100.5/MENDOZA Atorvastatin Calcium 40 mg 09/18/18 22:00 10/03/18 23:36 Lipitor PO 40 mg QHS LUZ Administration Diphenhydramine HCl 50 mg 09/18/18 22:00 10/03/18 23:36 Benadryl PO 50 mg HS LUZ Administration Divalproex Sodium 500 mg 09/18/18 10:00 10/03/18 23:[address] PO 500 mg BID LUZ Administration Enoxaparin Sodium 30 mg 09/20/18 22:00 10/03/18 23:36 Lovenox SUB-Q 30 mg QDAY@2200 LUZ Administration Epoetin Luis 20,000 unit 09/26/18 12:23 09/28/18 22:15 Procrit SUB-Q 20,000 unit KUSHAL PRN Administration hemodialysis Furosemide 80 mg 09/29/18 06:00 10/04/18 05:41 Lasix PO 80 mg 0600,1800 LUZ Administration Haloperidol 5 mg 09/25/18 22:00 10/03/18 23:36 Haldol PO 5 mg HS LUZ Administration Hydralazine HCl 10 mg 09/22/18 06:28 09/22/18 12:12 Apresoline IV 10 mg Q4H PRN Administration systolic b/p >165 Hydralazine HCl 50 mg 09/22/18 14:00 10/04/18 05:42 Apresoline PO Not Given Q8HR LUZ Hydromorphone HCl 0.5 mg 09/18/18 02:40 Dilaudid IV Q3H PRN Pain , Severe (7-10) Sodium Chloride 100 mls @ 999 mls/hr 10/03/18 15:15 Nacl 0.9% IV KUSHAL PRN Hypotension Losartan Potassium 50 mg 10/04/18 10:00 Cozaar PO QDAY LUZ Ondansetron HCl 4 mg 09/18/18 02:40 09/23/18 08:45 Zofran IV 4 mg Q8H PRN Administration Nausea And Vomiting Oxycodone/Acetaminophen 1 tab 09/18/18 02:40 09/28/18 23:56 Percocet 5/325 PO 1 tab Q6H PRN Administration Pain, Moderate (4-6) Pantoprazole Sodium 40 mg 10/02/18 10:00 10/03/18 09:36 Protonix PO 40 mg DAILY LUZ Administration Sodium Chloride 10 ml 09/18/18 10:00 10/03/18 23:37 Sodium Chloride Flush Syringe 10 Ml IV 10 ml BID LUZ Administration Sodium Chloride 10 ml 09/18/18 02:40 Sodium Chloride Flush Syringe 10 Ml IV PRN PRN LINE FLUSH
[2018-10-04] MEDS ORDERED: NACL 0.9% 100 ML IV PRN (11:16)
[2018-10-04] MEDS: COZAAR PO SCH (11:38)
[2018-10-04] MEDS: PROTONIX PO SCH (11:39)
[2018-10-04] MEDS: SODIUM CHLORIDE FLUSH SYRINGE 10 ML IV SCH (11:40)
--- NOTE | 2018-10-04 14:12 | Progress Note ---
Assessment and Plan Acute hypoxemic respiratory failure Sepsis secondary to left lower lobe PNA Extreme obesity Nephrotic syndrome Enterococcus UTI Renal failure on HD Nephrotic syndrome Anemia - continue supplemental oxygen to keep O2 sat's > 90% - continue gentle diuresis for volume control - prn albuterol ordered - weight loss counseled - now dialysis dependent; continue HD/UF per nephrology prescription - no active GI bleeding and was related to Radha Mendez tear - VTE w/up negative - continue other care per attending / other consultants .... re-evaluate in am & prn Subjective Date of service: 10/04/18 Principal diagnosis: Acute hypoxemic resp failure; Sepsis 2/2 LLL Pneumonia; Extreme obesity Interval history: Patient is seen today for: Acute hypoxemic respiratory failure; Sepsis secondary to left lower lobe PNA; Extreme obesity; Nephrotic syndrome; Enterococcus UTI Seen and examined at bedside; 24hour events reviewed; nursing and respiratory care staff consulted; no adverse overnight events reported to me; resting peacefully in bed; supplemental oxygen on side of pillow; denies acute chest pains or palpitations; refusing CPAP therapy; No N/V/F/C Objective Vital Signs - 12hr 10/04/18 10/04/18 10/04/18 05:37 11:16 11:38 Temperature 98.1 F 98.7 F Pulse Rate 88 97 H 100 H Respiratory 20 24 Rate Blood Pressure 141/76 147/95 O2 Sat by Pulse 95 96 Oximetry Constitutional: no acute distress, other (middle aged obese AAF, normocephalic with mildly increased resp effort at rest) Eyes: non-icteric, other (left eyelid edema) ENT: oropharynx moist, other (Mallampati 4) Neck: supple, no JVD Effort: mildly labored Ascultation: Bilateral: clear, diminished breath sounds Percussion: Bilateral: not dull Cardiovascular: regular rate and rhythm Gastrointestinal: normoactive bowel sounds, soft, non-tender, non-distended Integumentary: normal Extremities: no cyanosis, pulses normal, no ischemia or petechiae, edema Neurologic: normal mental status, non-focal exam, pupils equal and round, CN II- XII normal, motor strength normal and Psychiatric: other (? mil;d cognitive defect) CBC and BMP: 10/05/18 06:50 10/05/18 06:50 ABG, PT/INR, D-dimer: ABG POC ABG pH 7.375 (7.35-7.45) 09/23/18 15:06 POC ABG pCO2 36.3 (35-45) 09/23/18 15:06 POC ABG pO2 99 (80-105) 09/23/18 15:06 POC ABG HCO3 21.2 09/23/18 15:06 POC ABG Total CO2 22 09/23/18 15:06 POC ABG O2 Sat 98 09/23/18 15:06 PT/INR, D-dimer PT 12.7 Sec. (12.2-14.9) 09/26/18 Unknown INR 0.90 (0.87-1.13) 09/26/18 Unknown Abnormal lab findings: Abnormal Labs 09/17/18 09/17/18 09/17/18 15:17 15:17 15:17 WBC RBC 3.34 L Hgb 9.1 L Hct 27.9 L MCH 27 L RDW 20.5 H Plt Count Lymph % (Auto) Grundy % (Auto) 8.8 H Grundy # APTT 22.2 L Potassium Chloride 107.7 H BUN 37 H Creatinine 2.3 H Glucose Calcium 7.4 L Phosphorus Magnesium 2.60 H ALT Total Creatine Kinase NT-Pro-B Natriuret Pep 992.5 H Serum Total Protein Total Protein 4.1 L Albumin 1.3 L Gamma Globulins PEP Interpretation Urine WBC (Auto) Urine Creatinine Ur Creatinine 24 Hour Ur Total Protein 24 Hr Urine Total Protein Valproic Acid Crossmatch 09/17/18 09/18/18 09/18/18 17:18 05:22 05:22 WBC 4.4 L RBC 3.06 L Hgb 8.5 L Hct 25.5 L MCH RDW 20.0 H Plt Count Lymph % (Auto) 36.5 H Grundy % (Auto) 12.3 H Grundy # APTT Potassium Chloride 107.2 H BUN 37 H Creatinine 2.2 H Glucose Calcium 7.4 L Phosphorus Magnesium ALT 6 L Total Creatine Kinase NT-Pro-B Natriuret Pep Serum Total Protein Total Protein 3.9 L Albumin 1.4 L Gamma Globulins PEP Interpretation Urine WBC (Auto) 15.0 H Urine Creatinine Ur Creatinine 24 Hour Ur Total Protein 24 Hr Urine Total Protein Valproic Acid Crossmatch 09/18/18 09/19/18 09/19/18 10:30 05:45 05:45 WBC RBC Hgb Hct MCH RDW Plt Count Lymph % (Auto) Grundy % (Auto) Grundy # APTT Potassium Chloride BUN 37 H Creatinine 2.1 H Glucose Calcium 7.3 L Phosphorus Magnesium ALT Total Creatine Kinase NT-Pro-B Natriuret Pep Serum Total Protein 3.4 L Total Protein Albumin 1.2 L Gamma Globulins 0.5 L PEP Interpretation see below H Urine WBC (Auto) Urine Creatinine 147.5 H Ur Creatinine 24 Hour 0.7 L Ur Total Protein 24 Hr 1073.50 H Urine Total Protein 226 H Valproic Acid Crossmatch 09/20/18 09/20/18 09/21/18 04:56 15:15 06:13 WBC RBC 2.84 L Hgb 7.8 L Hct 24.1 L MCH 27 L RDW 19.8 H Plt Count Lymph % (Auto) Grundy % (Auto) 12.9 H Grundy # APTT Potassium 5.4 H 5.5 H Chloride 108.2 H BUN 38 H Creatinine 2.4 H Glucose Calcium 7.2 L Phosphorus Magnesium ALT Total Creatine Kinase NT-Pro-B Natriuret Pep Serum Total Protein Total Protein Albumin Gamma Globulins PEP Interpretation Urine WBC (Auto) Urine Creatinine Ur Creatinine 24 Hour Ur Total Protein 24 Hr Urine Total Protein Valproic Acid Crossmatch 09/21/18 09/21/18 09/22/18 06:13 07:00 10:12 WBC RBC Hgb Hct MCH RDW Plt Count Lymph % (Auto) Grundy % (Auto) Grundy # APTT Potassium 5.2 H Chloride 108.2 H 111.5 H BUN 39 H 40 H Creatinine 2.7 H 3.1 H Glucose Calcium 7.3 L 7.1 L Phosphorus Magnesium ALT Total Creatine Kinase NT-Pro-B Natriuret Pep Serum Total Protein Total Protein Albumin Gamma Globulins PEP Interpretation Urine WBC (Auto) Urine Creatinine 97.5 H Ur Creatinine 24 Hour Ur Total Protein 24 Hr Urine Total Protein 708 H Valproic Acid Crossmatch 09/23/18 09/25/18 09/25/18 04:40 07:30 07:30 WBC RBC 2.55 L Hgb 6.9 L Hct 21.5 L MCH 27 L RDW 19.5 H Plt Count Lymph % (Auto) Grundy % (Auto) 12.2 H Grundy # APTT Potassium Chloride 109.1 H BUN 42 H 33 H Creatinine 3.8 H 4.4 H Glucose 102 H Calcium 7.2 L 7.3 L Phosphorus 5.00 H Magnesium ALT Total Creatine Kinase NT-Pro-B Natriuret Pep Serum Total Protein Total Protein Albumin Gamma Globulins PEP Interpretation Urine WBC (Auto) Urine Creatinine Ur Creatinine 24 Hour Ur Total Protein 24 Hr Urine Total Protein Valproic Acid Crossmatch 09/26/18 09/26/18 09/26/18 07:17 07:17 07:17 WBC RBC Hgb 6.7 L Hct 20.0 L MCH RDW Plt Count Lymph % (Auto) Grundy % (Auto) Grundy # APTT Potassium Chloride BUN 24 H Creatinine 4.1 H Glucose Calcium 7.0 L Phosphorus Magnesium ALT Total Creatine Kinase 559 H NT-Pro-B Natriuret Pep Serum Total Protein Total Protein Albumin Gamma Globulins PEP Interpretation Urine WBC (Auto) Urine Creatinine Ur Creatinine 24 Hour Ur Total Protein 24 Hr Urine Total Protein Valproic Acid 13.2 L Crossmatch 09/26/18 09/27/18 09/27/18 Unknown 07:42 07:42 WBC RBC 2.16 L Hgb 6.0 L Hct 18.1 L* MCH RDW 18.9 H Plt Count 130 L Lymph % (Auto) Grundy % (Auto) 15.8 H Grundy # APTT 36.7 H Potassium Chloride 108.4 H BUN 26 H Creatinine 4.8 H Glucose Calcium 7.1 L Phosphorus 4.60 H Magnesium ALT Total Creatine Kinase NT-Pro-B Natriuret Pep Serum Total Protein Total Protein Albumin Gamma Globulins PEP Interpretation Urine WBC (Auto) Urine Creatinine Ur Creatinine 24 Hour Ur Total Protein 24 Hr Urine Total Protein Valproic Acid Crossmatch 09/27/18 09/28/18 09/29/18 10:43 04:43 05:07 WBC RBC 3.29 L 3.28 L Hgb 8.9 L 8.9 L Hct 27.2 L D 27.1 L MCH 27 L 27 L RDW 19.3 H 19.3 H Plt Count 130 L 133 L Lymph % (Auto) Grundy % (Auto) 15.6 H Grundy # 0.9 H APTT Potassium Chloride BUN Creatinine Glucose Calcium Phosphorus Magnesium ALT Total Creatine Kinase NT-Pro-B Natriuret Pep Serum Total Protein Total Protein Albumin Gamma Globulins PEP Interpretation Urine WBC (Auto) Urine Creatinine Ur Creatinine 24 Hour Ur Total Protein 24 Hr Urine Total Protein Valproic Acid Crossmatch See Detail 09/29/18 10/01/18 10/01/18 05:07 06:16 06:16 WBC RBC 3.18 L Hgb 8.6 L Hct 26.2 L MCH 27 L RDW 19.3 H Plt Count Lymph % (Auto) Grundy % (Auto) Grundy # APTT Potassium Chloride BUN 22 H 22 H Creatinine 5.4 H 6.0 H Glucose Calcium 7.1 L 7.1 L Phosphorus Magnesium ALT Total Creatine Kinase NT-Pro-B Natriuret Pep Serum Total Protein Total Protein Albumin Gamma Globulins PEP Interpretation Urine WBC (Auto) Urine Creatinine Ur Creatinine 24 Hour Ur Total Protein 24 Hr Urine Total Protein Valproic Acid Crossmatch Chest x-ray: image reviewed (right vascath; bibasilar infiltrates) Allied health notes reviewed: nursing
--- NOTE | 2018-10-04 21:42 | Progress Note ---
Assessment and Plan Patient is a 47 yo woman with a history of Obesity, HTN and Schizophrenia who presented to the ER with bilateral leg swelling, SOB and increase in the abdominal girth and weight gain of ~86 pounds in 10 weeks. Patient denies any h/o heart disease or Liver problem. Labs were significant for creatinine of 2.2, Hb 8.5, albumin 1.4 and 3+ protein in the urine. Patient was admitted with provisional diagnosis of Nephrotic syndrome. Nephrology was consulted for further evaluation and recommended Kidney biopsy; which patient refused on m ultiple occasions so Radiology declined to re-schedule the procedure. Also, During hospital coarse, she was found to have coffee ground emesis and EGD was done on 09/26/18 and showed M-W tear. Her hemoglobin was steadily dropping and she initially refused blood transfusion until Mr. Galeas convinced her to get the blood transfusion and do Hemodialysis which she refuses at times. - Acute kidney injury Commenced hemodialysis on 09/24/2018 Patient intermittently still refuses hemodialysis on some days -Nephrotic syndrome. 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 Patient refused several times to do Kidney biospy - VRE UTI: Possible cystitis. ID recommended treating patient with amoxicillin for 3 days that banding on 09/06/18 -Coffee-ground emesis with Radha Mendez Tear. Status post EGD that showed gastritis and hiatal hernia No more active bleeding -Acute on chronic Blood loss anemia due to above -Right lower extremity thigh pain. Doppler lower extremities bilaterally negative for DVT =Left breast swelling, unknown at present. Need outpatient Mammogram and U/S =Morbid obesity, bmi 55.2: lifestyle modification =Medical noncompliance. Patient intermittently at times refusing care. Psych/Mik told me she has decision making capacity. =Schizophrenia, Bipolar disorder. Continue current medications.. As above. Psych consulted =Hyperkalemia. Kayexalate. Recheck BMP in the morning. =Sepsis. Maybe from UTI as chest x-ray shows no evidence of pneumonia. Present on admission. Continue IV antibiotics. Etiology secondary to pneumonia and UTI. =VRE: ID is following, ordered isolation Disposition: Patient is from a [facility] and currently on hemodialysis. Awaiting outpatient hemodialysis placement Subjective Date of service: 10/04/18 Principal diagnosis: coffee-ground emesis Interval history: Laying quietly in bed. No apparent distress. still has swelling of face abdom en and lower extremities. Denies any fever. Objective - Exam Narrative Exam: Constitutional: Generalized swelling. In no distress Head: Normocephalic atraumatic Eyes: Pupils are equal round and reactive to light Nose: No enlarged turbinates, no septal deviation. Mouth: Moist mucous membranes. Neck: Supple no thyromegaly. No bruit. No JVD Heart: Regular rate and rhythm, S1-S2 normal. No rubs murmurs or gallop Lungs: Clear to auscultation bilaterally. no rales or rhonchi Abdomen: Soft, nontender. Bowel sound are present. Edematous Extremities: 2+ edema, no cyanosis, no clubbing. Neuro: Alert oriented Oriented x3. No focal sensory or motor deficit. Skin: No rashes or hyperpigmented spots Musculoskeletal system: No joint pain or swelling Hematological: No petechia or subcutanous hemorrhages. Immunological: No multiple septic spots on the skin Lymphatic: No generalized lymphadenopathy Psychiatry: Euthymic. Calm. - Constitutional Vitals: Vital Signs - 12hr 10/04/18 10/04/18 10/04/18 11:16 11:38 16:32 Temperature 98.7 F Pulse Rate 97 H 100 H 96 H Respiratory 24 Rate Blood Pressure 147/95 O2 Sat by Pulse 96 Oximetry 10/04/18 10/04/18 10/04/18 17:25 19:00 19:15 Temperature 98.3 F 98.3 F Pulse Rate 98 H 94 H 89 Respiratory 24 20 Rate Blood Pressure 141/68 158/83 174/86 O2 Sat by Pulse 100 Oximetry 10/04/18 10/04/18 10/04/18 19:30 19:45 20:00 Temperature Pulse Rate 106 H 91 H 93 H Respiratory Rate Blood Pressure 162/66 168/82 192/88 O2 Sat by Pulse Oximetry 10/04/18 10/04/18 10/04/18 20:15 20:30 20:45 Temperature Pulse Rate 84 63 94 H Respiratory Rate Blood Pressure 167/68 114/71 142/76 O2 Sat by Pulse Oximetry 10/04/18 21:00 Temperature Pulse Rate 88 Respiratory Rate Blood Pressure 104/65 O2 Sat by Pulse Oximetry - Labs CBC & Chem 7: 10/01/18 06:16 10/01/18 06:16
[2018-10-04] MEDS: PROCRIT SUB-Q PRN (22:40)
[2018-10-04] MEDS: HALDOL PO SCH (23:23)
[2018-10-04] MEDS: BENADRYL PO SCH (23:23)
[2018-10-04] MEDS: LOVENOX SUB-Q SCH (23:29)
[2018-10-05] MEDS: LASIX PO SCH ×2 (06:18→17:37)
[2018-10-05] MEDS: APRESOLINE PO SCH ×3 (06:18→21:51)
[2018-10-05 07:44] LABS: Hematocrit 25.6 % (30.3-42.9); Hemoglobin 8.3 gm/dl (10.1-14.3); Mean Corpuscular HGB Conc 32 % (30-34); Mean Corpuscular Volume 83 fl (79-97); Platelet Count 140 K/mm3 (140-440); Red Blood Count 3.08 M/mm3 (3.65-5.03)
[2018-10-05 08:09] LABS: Alanine Aminotransferase 7 units/L (7-56); Albumin 1.5 g/dL (3.9-5); BUN/Creatinine Ratio 3; Blood Urea Nitrogen 16 mg/dL (7-17); Calcium 7.3 mg/dL (8.4-10.2); Hemolysis Index 9
--- NOTE | 2018-10-05 09:00 | Progress Note ---
Assessment and Plan 1. Acute kidney injury: LUCILA superimposed on CKD likely related Nephrotic syndrome. Patient was started on hemodialysis on 09/24/2018 due to worsening renal function, anasarca and suspected pulmonary edema. Tolerated hemodialysis well. Last dialyzed yesterday. Patient has been refusing HD / Isolated UF intermittently. Patient refused HD today. Renal prognosis appears to be poor at this time. 2. Nephrotic syndrome: Possible causes include but not limited to FSGS, Minimal change, Membranous and Lupus nephritis. Complements, BI, ANCA, SPEP, GBM Ab, Hepatitis panel and HIV are negative. Made several attempts to do Kidney biospy but she refused. Patient is on Lovenox to prevent DVT. Continue ARB and Statin. 3. FEN: Volume overload, UF with HD. On Lasix. Hyperkalemia, improved. 4. VRE bacteriuria. 5. HTN. 6. Anemia: Present on admission. S/p PRBC. Epogen with HD. 7. Schizophrenia. 8. Medical non-compliance. Subjective Date of service: 10/05/18 Principal diagnosis: coffee-ground emesis Interval history: Patient was seen and examined at the bedside. Doing ok. Objective - Vital Signs Vital signs: Vital Signs - 12hr 10/04/18 10/04/18 10/04/18 21:15 21:30 21:45 Temperature Pulse Rate 85 86 82 Pulse Rate [ Right Radial] Respiratory Rate Blood Pressure 128/55 132/62 124/68 O2 Sat by Pulse Oximetry 10/04/18 10/04/18 10/04/18 22:00 22:33 23:21 Temperature 98.3 F Pulse Rate 84 86 Pulse Rate [ 92 H Right Radial] Respiratory 20 20 Rate Blood Pressure 128/54 128/62 128/64 O2 Sat by Pulse Oximetry 10/05/18 10/05/18 04:29 06:18 Temperature 98.1 F Pulse Rate 86 76 Pulse Rate [ Right Radial] Respiratory 24 Rate Blood Pressure 126/90 O2 Sat by Pulse 96 Oximetry - General Appearance General appearance: well-developed, well-nourished, appears stated age, obese, other (not in distress, right IJ tunnel catheter) EENT: ATNC, other (facial plethora noted) Neck: supple Respiratory: Present: Clear to Ascultation Cardiology: regular, S1S2, no murmurs Gastrointestinal: normoactive bowel sounds, no tenderness, no distended, obese Integumentary: no rash, warm and dry Neurologic: no focal deficit, no asterixis, alert and oriented x3 Musculoskeletal: other (2+ LE edema noted) - Lab 10/05/18 06:50 10/05/18 06:50 Most recent lab results Calcium 7.3 mg/dL (8.4-10.2) L 10/05/18 06:50 Phosphorus 4.60 mg/dL (2.5-4.5) H 09/27/18 07:42 Magnesium 2.60 mg/dL (1.7-2.3) H 09/17/18 15:17 Urine Creatinine 97.5 mg/dL (0.1-20.0) H 09/21/18 07:00 Ur Total Protein 24 Hr 1073.50 mg/dL (2-200) H 09/18/18 10:30 Urine Sodium 53 mmol/L 09/21/18 07:00 Urine Total Protein 708 mg/dL (5-11.8) H 09/21/18 07:00 Medications & Allergies - Medications Allergies/Adverse Reactions: Allergies No Known Allergies Allergy (Unverified 09/17/18 15:05) Home Medications: Home Medications Medication Instructions Recorded Confirmed Last Taken Type Divalproex Sodium [Depakote] 500 mg PO BID 09/17/18 09/17/18 Unknown History Haldol (Nf) 09/17/18 Unknown History Invega Sustenna 09/17/18 Unknown History diphenhydrAMINE [Benadryl CAP] 50 mg PO HS 09/17/18 09/17/18 Unknown History Active Medications: Generic Name Dose Route Start Last Admin Trade Name Freq PRN Reason Stop Dose Admin Acetaminophen 650 mg 09/18/18 02:40 09/27/18 05:36 Tylenol PO 650 mg Q4H PRN Administration Pain MILD(1-3)/Fever >100.5/MENDOZA Atorvastatin Calcium 40 mg 09/18/18 22:00 10/04/18 23:23 Lipitor PO 40 mg QHS LUZ Administration Diphenhydramine HCl 50 mg 09/18/18 22:00 10/04/18 23:23 Benadryl PO 50 mg HS LUZ Administration Divalproex Sodium 500 mg 09/18/18 10:00 10/04/18 23:[address] PO Not Given BID LUZ Enoxaparin Sodium 30 mg 09/20/18 22:00 10/04/18 23:29 Lovenox SUB-Q Not Given QDAY@2200 [facility] Epoetin Luis 20,000 unit 09/26/18 12:23 10/04/18 22:40 Procrit SUB-Q 20,000 unit KUSHAL PRN Administration hemodialysis Furosemide 80 mg 09/29/18 06:00 10/05/18 06:18 Lasix PO 80 mg 0600,1800 LUZ Administration Haloperidol 5 mg 09/25/18 22:00 10/04/18 23:23 Haldol PO 5 mg HS LUZ Administration Hydralazine HCl 10 mg 09/22/18 06:28 09/22/18 12:12 Apresoline IV 10 mg Q4H PRN Administration systolic b/p >165 Hydralazine HCl 50 mg 09/22/18 14:00 10/05/18 06:18 Apresoline PO 50 mg Q8HR LUZ Administration Hydromorphone HCl 0.5 mg 09/18/18 02:40 Dilaudid IV Q3H PRN Pain , Severe (7-10) Sodium Chloride 100 mls @ 999 mls/hr 10/04/18 11:16 Nacl 0.9% IV KUSHAL PRN Hypotension Losartan Potassium 50 mg 10/04/18 10:00 10/04/18 11:38 Cozaar PO 50 mg QDAY LUZ Administration Ondansetron HCl 4 mg 09/18/18 02:40 09/23/18 08:45 Zofran IV 4 mg Q8H PRN Administration Nausea And Vomiting Oxycodone/Acetaminophen 1 tab 09/18/18 02:40 09/28/18 23:56 Percocet 5/325 PO 1 tab Q6H PRN Administration Pain, Moderate (4-6) Pantoprazole Sodium 40 mg 10/02/18 10:00 10/04/18 11:39 Protonix PO 40 mg DAILY LUZ Administration Sodium Chloride 10 ml 09/18/18 10:00 10/04/18 11:40 Sodium Chloride Flush Syringe 10 Ml IV 10 ml BID LUZ Administration Sodium Chloride 10 ml 09/18/18 02:40 Sodium Chloride Flush Syringe 10 Ml IV PRN PRN LINE FLUSH
[2018-10-05] MEDS: COZAAR PO SCH (10:11)
[2018-10-05] MEDS: PROTONIX PO SCH (10:11)
[2018-10-05] MEDS: SODIUM CHLORIDE FLUSH SYRINGE 10 ML IV SCH ×2 (10:11→21:53)
[2018-10-05 14:43] LABS: Myelocytes # (Manual) 0.1 K/mm3; Total Cells Counted 100
[2018-10-05 14:44] LABS: Platelet Estimate Consistent w Auto; RBC Morphology Normal
--- NOTE | 2018-10-05 15:29 | Progress Note ---
Assessment and Plan Assessment and plan: Patient is a 47 yo woman with a history of Obesity, HTN and Schizophrenia who presented to the ER with bilateral leg swelling, SOB and increase in the abdominal girth and weight gain of ~86 pounds in 10 weeks. Patient denies any h/o heart disease or Liver problem. Labs were significant for creatinine of 2.2, Hb 8.5, albumin 1.4 and 3+ protein in the urine. Patient was admitted with provisional diagnosis of Nephrotic syndrome. Nephrology was consulted for further evaluation and recommended Kidney biopsy; which patient refused on multiple occasions so Radiology declined to re-schedule the procedure. Also, During hospital coarse, she was found to have coffee ground emesis and EGD was done on 09/26/18 and showed M-W tear. Her hemoglobin was steadily dropping and she initially refused blood transfusion until Mr. Galeas convinced her to get the blood transfusion and do Hemodialysis which she refuses at times. - Acute kidney injury with ckd and nephrotic syndrome. Commenced hemodialysis on 09/24/2018 Patient intermittently still refuses hemodialysis on some days -Nephrotic syndrome. 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 Patient refused several times to do Kidney biospy - VRE UTI: Possible cystitis. ID recommended treating patient with amoxicillin for 3 days that banding on 09/06/18 -Coffee-ground emesis with Radha Mendez Tear. Status post EGD that showed gastritis and hiatal hernia No more active bleeding -Acute on chronic Blood loss anemia due to above -Medical non-compliance -Severe protein calorie malnutrition: Consult placed for [facility]el Hemmer. -Right lower extremity thigh pain. Doppler lower extremities bilaterally negative for DVT =Left breast swelling, unknown at present. Need outpatient Mammogram and U/S =Morbid obesity, bmi 55.2: lifestyle modification. BIPAP recommended but refuses =Medical noncompliance. Patient intermittently at times refusing care. Psych/ [place] told me she has decision making capacity. =Schizophrenia, Bipolar disorder. Continue current medications.. As above. Psych consulted =Hyperkalemia. Kayexalate. Recheck BMP in the morning. =Sepsis. Maybe from UTI as chest x-ray shows no evidence of pneumonia. Present on admission. Continue IV antibiotics. Etiology secondary to pneumonia and UTI. History Interval history: Patient seen and examined, ?patients understanding of her medical condition. she screems incoherently at times. Hospitalist Physical - Physical exam Narrative exam: Constitutional: Generalized swelling. Head: Normocephalic atraumatic Eyes: Pupils are equal round and reactive to light Nose: No enlarged turbinates, no septal deviation. Mouth: Moist mucous membranes. Neck: Supple no thyromegaly. No bruit. No JVD Heart: Regular rate and rhythm, S1-S2 normal. No rubs murmurs or gallop Lungs: Diminished to auscultation bilaterally. no rales or rhonchi Abdomen: Soft, nontender. Bowel sound are present. Edematous Extremities: 2+ edema, no cyanosis, no clubbing. Neuro: Alert oriented Oriented x3. No focal sensory or motor deficit. Skin: No rashes or hyperpigmented spots Musculoskeletal system: No joint pain or swelling Hematological: No petechia or subcutanous hemorrhages. Lymphatic: No generalized lymphadenopathy Psychiatry: Euthymic. Calm. - Constitutional Vitals: Temp Pulse Resp BP Pulse Ox 97.7 F 118 H 24 145/104 95 10/05/18 12:06 10/05/18 13:13 10/05/18 12:06 10/05/18 13:13 10/05/18 12:06 General appearance: Present: no acute distress, obese Results - Labs CBC & Chem 7: 10/05/18 06:50 10/05/18 06:50 Labs: Laboratory Last Values WBC 6.2 K/mm3 (4.5-11.0) 10/05/18 06:50 RBC 3.08 M/mm3 (3.65-5.03) L 10/05/18 06:50 Hgb 8.3 gm/dl (10.1-14.3) L 10/05/18 06:50 Hct 25.6 % (30.3-42.9) L 10/05/18 06:50 MCV 83 fl (79-97) 10/05/18 06:50 MCH 27 pg (28-32) L 10/05/18 06:50 MCHC 32 % (30-34) 10/05/18 06:50 RDW 19.0 % (13.2-15.2) H 10/05/18 06:50 Plt Count 140 K/mm3 (140-440) 10/05/18 06:50 Lymph % (Auto) 24.2 % (13.4-35.0) 09/29/18 05:07 Davison % (Auto) Boat Officer 10/05/18 06:50 Eos % (Auto) 1.7 % (0.0-4.3) 09/29/18 05:07 Baso % (Auto) 0.3 % (0.0-1.8) 09/29/18 05:07 Lymph # 1.4 K/mm3 (1.2-5.4) 09/29/18 05:07 Davison # 0.9 K/mm3 (0.0-0.8) H 09/29/18 05:07 Eos # 0.1 K/mm3 (0.0-0.4) 09/29/18 05:07 Baso # 0.0 K/mm3 (0.0-0.1) 09/29/18 05:07 Add Manual Diff Complete 10/05/18 06:50 Total Counted 100 10/05/18 06:50 Seg Neutrophils % 58.2 % (40.0-70.0) 09/29/18 05:07 Seg Neuts % (Manual) 70.0 % (40.0-70.0) 10/05/18 06:50 Band Neutrophils % 0 % 10/05/18 06:50 Lymphocytes % (Manual) 15.0 % (13.4-35.0) 10/05/18 06:50 Reactive Lymphs % (Man) 0 % 10/05/18 06:50 Monocytes % (Manual) 11.0 % (0.0-7.3) H 10/05/18 06:50 Eosinophils % (Manual) 2.0 % (0.0-4.3) 10/05/18 06:50 Basophils % (Manual) 1.0 % (0.0-1.8) 10/05/18 06:50 Metamyelocytes % 0 % 10/05/18 06:50 Myelocytes % 1.0 % 10/05/18 06:50 Promyelocytes % 0 % 10/05/18 06:50 Blast Cells % 0 % 10/05/18 06:50 Nucleated RBC % Not Reportable 10/05/18 06:50 Seg Neutrophils # 3.5 K/mm3 (1.8-7.7) 09/29/18 05:07 Seg Neutrophils # Man 4.3 K/mm3 (1.8-7.7) 10/05/18 06:50 Band Neutrophils # 0.0 K/mm3 10/05/18 06:50 Lymphocytes # (Manual) 0.9 K/mm3 (1.2-5.4) L 10/05/18 06:50 Abs React Lymphs (Man) 0.0 K/mm3 10/05/18 06:50 Monocytes # (Manual) 0.7 K/mm3 (0.0-0.8) 10/05/18 06:50 Eosinophils # (Manual) 0.1 K/mm3 (0.0-0.4) 10/05/18 06:50 Basophils # (Manual) 0.1 K/mm3 (0.0-0.1) 10/05/18 06:50 Metamyelocytes # 0.0 K/mm3 10/05/18 06:50 Myelocytes # 0.1 K/mm3 10/05/18 06:50 Promyelocytes # 0.0 K/mm3 10/05/18 06:50 Blast Cells # 0.0 K/mm3 10/05/18 06:50 WBC Morphology Not Reportable 10/05/18 06:50 Hypersegmented Neuts Not Reportable 10/05/18 06:50 Hyposegmented Neuts Not Reportable 10/05/18 06:50 Hypogranular Neuts Not Reportable 10/05/18 06:50 Smudge Cells Not Reportable 10/05/18 06:50 Toxic Granulation Not Reportable 10/05/18 06:50 Toxic Vacuolation Not Reportable 10/05/18 06:50 Dohle Bodies Not Reportable 10/05/18 06:50 Pelger-Huet Anomaly Not Reportable 10/05/18 06:50 [place] Rods Not Reportable 10/05/18 06:50 Platelet Estimate Consistent w auto 10/05/18 06:50 Clumped Platelets Not Reportable 10/05/18 06:50 Plt Clumps, EDTA Not Reportable 10/05/18 06:50 Large Platelets Not Reportable 10/05/18 06:50 Giant Platelets Not Reportable 10/05/18 06:50 Platelet Satelliting Not Reportable 10/05/18 06:50 Plt Morphology Comment Not Reportable 10/05/18 06:50 RBC Morphology Normal 10/05/18 06:50 Dimorphic RBCs Not Reportable 10/05/18 06:50 Polychromasia Not Reportable 10/05/18 06:50 Hypochromasia Not Reportable 10/05/18 06:50 Poikilocytosis Not Reportable 10/05/18 06:50 Anisocytosis Not Reportable 10/05/18 06:50 Microcytosis Not Reportable 10/05/18 06:50 Macrocytosis Not Reportable 10/05/18 06:50 Spherocytes Not Reportable 10/05/18 06:50 Pappenheimer Bodies Not Reportable 10/05/18 06:50 Sickle Cells Not Reportable 10/05/18 06:50 Target Cells Not Reportable 10/05/18 06:50 Tear Drop Cells Not Reportable 10/05/18 06:50 Ovalocytes Not Reportable 10/05/18 06:50 Helmet Cells Not Reportable 10/05/18 06:50 Maldonado-Grannis Bodies Not Reportable 10/05/18 06:50 Williamson Rings Not Reportable 10/05/18 06:50 Edison Cells Not Reportable 10/05/18 06:50 Bite Cells Not Reportable 10/05/18 06:50 Crenated Cell Not Reportable 10/05/18 06:50 Elliptocytes Not Reportable 10/05/18 06:50 Acanthocytes (Spur) Not Reportable 10/05/18 06:50 Rouleaux Not Reportable 10/05/18 06:50 Hemoglobin C Crystals Not Reportable 10/05/18 06:50 Schistocytes Not Reportable 10/05/18 06:50 Malaria parasites Not Reportable 10/05/18 06:50 Paul Bodies Not Reportable 10/05/18 06:50 Hem Pathologist Commnt No 10/05/18 06:50 PT 12.7 Sec. (12.2-14.9) 09/26/18 Unknown INR 0.90 (0.87-1.13) 09/26/18 Unknown APTT 36.7 Sec. (24.2-36.6) H 09/26/18 Unknown POC ABG pH 7.375 (7.35-7.45) 09/23/18 15:06 POC ABG pCO2 36.3 (35-45) 09/23/18 15:06 POC ABG pO2 99 (80-105) 09/23/18 15:06 POC ABG HCO3 21.2 09/23/18 15:06 POC ABG Total CO2 22 09/23/18 15:06 POC ABG O2 Sat 98 09/23/18 15:06 POC ABG Base Excess -4 09/23/18 15:06 FiO2 2 % 09/23/18 15:06 Sodium 142 mmol/L (137-145) 10/05/18 06:50 Potassium 4.3 mmol/L (3.6-5.0) 10/05/18 06:50 Chloride 105.1 mmol/L (98-107) 10/05/18 06:50 Carbon Dioxide 29 mmol/L (22-30) 10/05/18 06:50 Anion Gap 12 mmol/L 10/05/18 06:50 BUN 16 mg/dL (7-17) 10/05/18 06:50 Creatinine 4.9 mg/dL (0.7-1.2) H 10/05/18 06:50 Estimated GFR 12 ml/min 10/05/18 06:50 BUN/Creatinine Ratio 3 % 10/05/18 06:50 Glucose 85 mg/dL (65-100) 10/05/18 06:50 Calcium 7.3 mg/dL (8.4-10.2) L 10/05/18 06:50 Phosphorus 4.60 mg/dL (2.5-4.5) H 09/27/18 07:42 Magnesium 2.60 mg/dL (1.7-2.3) H 09/17/18 15:17 Total Bilirubin < 0.20 mg/dL (0.1-1.2) 10/05/18 06:50 AST 14 units/L (5-40) 10/05/18 06:50 ALT 7 units/L (7-56) 10/05/18 06:50 Alkaline Phosphatase 52 units/L (35-129) 10/05/18 06:50 Total Creatine Kinase 559 units/L (30-135) H 09/26/18 07:17 Troponin T 0.012 ng/mL (0.00-0.029) 09/17/18 15:17 NT-Pro-B Natriuret Pep 992.5 pg/mL (0-450) H 09/17/18 15:17 Serum Total Protein 3.4 g/dL (6.1-8.1) L 09/19/18 05:45 Total Protein 4.1 g/dL (6.3-8.2) L 10/05/18 06:50 Albumin 1.5 g/dL (3.9-5) L 10/05/18 06:50 Albumin/Globulin Ratio 0.6 % 10/05/18 06:50 Xkiky-7-Jsshlmmba 0.3 g/dL (0.2-0.3) 09/19/18 05:45 Elgzx-0-Zypnarfxw 0.8 g/dL (0.5-0.9) 09/19/18 05:45 Beta Globulins 0.4 g/dL (0.2-0.5) 09/19/18 05:45 Gamma Globulins 0.5 g/dL (0.8-1.7) L 09/19/18 05:45 Abnorm Protein Band 1 see below 09/19/18 05:45 PEP Interpretation see below H 09/19/18 05:45 Amylase 53 units/L (27-131) 09/25/18 13:53 Lipase 48 units/L (13-60) 09/25/18 13:53 HCG, Qual Negative (Negative) 09/25/18 13:53 PTH Intact 46.07 pg/mL (15-65) 09/19/18 05:45 Urine Color Yellow (Yellow) 09/17/18 17:18 Urine Turbidity Cloudy (Clear) 09/17/18 17:18 Urine pH 5.0 (5.0-7.0) 09/17/18 17:18 Ur Specific [place] 1.029 (1.003-1.030) 09/17/18 17:18 Urine Protein >500 mg/dL (Negative) 09/17/18 17:18 Urine Glucose (UA) Neg mg/dL (Negative) 09/17/18 17:18 Urine Ketones Tr mg/dL (Negative) 09/17/18 17:18 Urine Blood Sm (Negative) 09/17/18 17:18 Urine Nitrite Neg (Negative) 09/17/18 17:18 Urine Bilirubin Neg (Negative) 09/17/18 17:18 Urine Urobilinogen < 2.0 mg/dL (<2.0) 09/17/18 17:18 Ur Leukocyte Esterase Neg (Negative) 09/17/18 17:18 Urine WBC (Auto) 15.0 /HPF (0.0-6.0) H 09/17/18 17:18 Urine RBC (Auto) 13.0 /HPF (0.0-6.0) 09/17/18 17:18 U Epithel Cells (Auto) 6.0 /HPF (0-13.0) 09/17/18 17:18 Urine Bacteria (Auto) 2+ /HPF (Negative) 09/17/18 17:18 Urine WBC Clumps 2+ /HPF 09/17/18 17:18 Hyaline Casts 6 /LPF 09/17/18 17:18 Urine Mucus Few /HPF 09/17/18 17:18 Urine Yeast (Budding) 2+ /HPF 09/17/18 17:18 Urine Eosinophils None seen (None Seen) 09/18/18 10:30 Urine Total Volume 475 ml 09/18/18 10:30 Urine Creatinine 97.5 mg/dL (0.1-20.0) H 09/21/18 07:00 Ur Creatinine 24 Hour 0.7 (0.8-2.8) L 09/18/18 10:30 Ur Total Protein 24 Hr 1073.50 mg/dL (2-200) H 09/18/18 10:30 Protein/Creatinin Ratio 7.26 09/21/18 07:00 Urine Sodium 53 mmol/L 09/21/18 07:00 Urine Urea Nitrogen 467 09/18/18 10:30 Ur Urea Nitrogen 24 Hr 2.22 09/18/18 10:30 Urine Total Protein 708 mg/dL (5-11.8) H 09/21/18 07:00 Urine Opiates Screen Presumptive negative 09/17/18 17:18 Urine Methadone Screen Presumptive negative 09/17/18 17:18 Ur Barbiturates Screen Presumptive negative 09/17/18 17:18 Valproic Acid 13.2 ug/mL (50-100) L 09/26/18 07:17 Ur Phencyclidine Scrn Presumptive negative 09/17/18 17:18 Ur Amphetamines Screen Presumptive negative 09/17/18 17:18 U Benzodiazepines Scrn Presumptive negative 09/17/18 17:18 Urine Cocaine Screen Presumptive negative 09/17/18 17:18 U Marijuana (THC) Screen Presumptive negative 09/17/18 17:18 Drugs of Abuse Note Disclamer 09/17/18 17:18 BI Screen Negative (Negative) 09/19/18 05:45 Proteinase 3 (PR3) Ab <1.0 AI (<1.0) 09/19/18 05:45 Myeloperoxidase Ab <1.0 AI (<1.0) 09/19/18 05:45 Glomerular Base Mem IgG See scanned result 09/19/18 05:45 Complement C3 143 mg/dL (83-193) 09/19/18 05:45 Complement C4 56 mg/dL (15-57) 09/19/18 05:45 Hepatitis A IgM Ab Non-reactive (NonReactive) 09/19/18 05:45 Hep Bs Antigen Non-reactive (Negative) 09/19/18 05:45 Hep B Core IgM Ab Non-reactive (NonReactive) 09/19/18 05:45 Hepatitis C Antibody Non-reactive (NonReactive) 09/19/18 05:45 HIV 1&2 Antibody Rapid Non react (Non React) 09/27/18 07:42 HIV P24 Antigen Non react (Non React) 09/27/18 07:42 Blood Type O POSITIVE 09/27/18 10:43 Antibody Screen Negative 09/27/18 10:43 Crossmatch See Detail 09/27/18 10:43 Active Medications - Current Medications Current Medications: Generic Name Dose Route Start Last Admin Trade Name Freq PRN Reason Stop Dose Admin Acetaminophen 650 mg 09/18/18 02:40 09/27/18 05:36 Tylenol PO 650 mg Q4H PRN Administration Pain MILD(1-3)/Fever >100.5/MENDOZA Atorvastatin Calcium 40 mg 09/18/18 22:00 10/04/18 23:23 Lipitor PO 40 mg QHS LUZ Administration Diphenhydramine HCl 50 mg 09/18/18 22:00 10/04/18 23:23 Benadryl PO 50 mg HS LUZ Administration Divalproex Sodium 500 mg 09/18/18 10:00 10/05/18 10:[address] PO 500 mg BID LUZ Administration Enoxaparin Sodium 30 mg 09/20/18 22:00 10/04/18 23:29 Lovenox SUB-Q Not Given QDAY@2200 [facility] Epoetin Luis 20,000 unit 09/26/18 12:23 10/04/18 22:40 Procrit SUB-Q 20,000 unit KUSHAL PRN Administration hemodialysis Furosemide 80 mg 09/29/18 06:00 10/05/18 06:18 Lasix PO 80 mg 0600,1800 LUZ Administration Haloperidol 5 mg 09/25/18 22:00 10/04/18 23:23 Haldol PO 5 mg HS LUZ Administration Hydralazine HCl 10 mg 09/22/18 06:28 09/22/18 12:12 Apresoline IV 10 mg Q4H PRN Administration systolic b/p >165 Hydralazine HCl 50 mg 09/22/18 14:00 10/05/18 13:13 Apresoline PO 50 mg Q8HR LUZ Administration Hydromorphone HCl 0.5 mg 09/18/18 02:40 Dilaudid IV Q3H PRN Pain , Severe (7-10) Sodium Chloride 100 mls @ 999 mls/hr 10/04/18 11:16 Nacl 0.9% IV KUSHAL PRN Hypotension Losartan Potassium 50 mg 10/04/18 10:00 10/05/18 10:11 Cozaar PO 50 mg QDAY LUZ Administration Ondansetron HCl 4 mg 09/18/18 02:40 09/23/18 08:45 Zofran IV 4 mg Q8H PRN Administration Nausea And Vomiting Oxycodone/Acetaminophen 1 tab 09/18/18 02:40 09/28/18 23:56 Percocet 5/325 PO 1 tab Q6H PRN Administration Pain, Moderate (4-6) Pantoprazole Sodium 40 mg 10/02/18 10:00 10/05/18 10:11 Protonix PO 40 mg DAILY LUZ Administration Sodium Chloride 10 ml 09/18/18 10:00 10/05/18 10:11 Sodium Chloride Flush Syringe 10 Ml IV 10 ml BID LUZ Administration Sodium Chloride 10 ml 09/18/18 02:40 Sodium Chloride Flush Syringe 10 Ml IV PRN PRN LINE FLUSH Nutrition/Malnutrition Assess - Dietary Evaluation Nutrition/Malnutrition Findings: Nutrition Notes Start: 09/24/18 15:36 Freq: Status: Active Protocol: Document 10/05/18 14:16 RD (Rec: 10/05/18 14:35 RD [email or web address]) Co-Sign 10/05/18 14:16 OL Nutrition Notes Need for Assessment generated from: MD Order Initial or Follow up Brief Note Current Diagnosis Sepsis,Respiratory Failure Other Pertinent Diagnosis renal failure on HD, nephrotic syndrome, anemia Current Diet GI soft Labs/Tests Albumin 1.5 Subjective/Other Information RD consulted for malnutrition risk. Pt asleep at time of visit. Nutrition Intervention Follow-Up By: 10/08/18 Additional Comments f/u: assessment needs
--- NOTE | 2018-10-05 16:56 | Progress Note ---
Assessment and Plan Acute hypoxemic respiratory failure Sepsis secondary to left lower lobe PNA Extreme obesity Nephrotic syndrome Enterococcus UTI Renal failure on HD Nephrotic syndrome Anemia - continue supplemental oxygen to keep O2 sat's > 90% (advised to keep it on especially while asleep) - repeat CXR re: pneumonia vs pulmonary edema - strongly counseled using BIPAP qhs for clinical STEFF S&S (fell asleep during my conversation) - repeat ABG and address as necessary - continue gentle diuresis for volume control - prn albuterol ordered - weight loss counseled - now dialysis dependent; continue HD/UF per nephrology prescription - no active GI bleeding and was related to Radha Mendez tear - VTE w/up negative - continue other care per attending / other consultants .... re-evaluate in am & prn Subjective Date of service: 10/05/18 Principal diagnosis: Acute hypoxemic resp failure; Sepsis 2/2 LLL Pneumonia; Extreme obesity Interval history: Patient is seen today for: Acute hypoxemic respiratory failure; Sepsis secondary to left lower lobe PNA; Extreme obesity; Nephrotic syndrome; Enterococcus UTI Seen and examined at bedside; 24hour events reviewed; nursing and respiratory care staff consulted; no adverse overnight events reported to me; resting peacefully in bed; denies acute chest pains or palpitations; again stressed BIPAP importance and will order Objective Vital Signs - 12hr 10/05/18 10/05/18 10/05/18 06:18 10:11 12:06 Temperature 97.7 F Pulse Rate 76 76 118 H Respiratory 24 Rate Blood Pressure 145/104 O2 Sat by Pulse 95 Oximetry 10/05/18 13:13 Temperature Pulse Rate 118 H Respiratory Rate Blood Pressure 145/104 O2 Sat by Pulse Oximetry Constitutional: no acute distress, other (middle aged obese AAF, normocephalic with mildly increased resp effort at rest) Eyes: non-icteric, other (left eyelid edema) ENT: oropharynx moist, other (Mallampati 4) Neck: supple, no JVD Effort: mildly labored Ascultation: Bilateral: clear, diminished breath sounds Percussion: Bilateral: not dull Cardiovascular: regular rate and rhythm Gastrointestinal: normoactive bowel sounds, soft, non-tender, non-distended Integumentary: normal Extremities: no cyanosis, pulses normal, no ischemia or petechiae, edema Neurologic: normal mental status, non-focal exam, pupils equal and round, CN II- XII normal, motor strength normal and Psychiatric: other (? mil;d cognitive defect) CBC and BMP: 10/05/18 06:50 10/05/18 06:50 ABG, PT/INR, D-dimer: ABG POC ABG pH 7.375 (7.35-7.45) 09/23/18 15:06 POC ABG pCO2 36.3 (35-45) 09/23/18 15:06 POC ABG pO2 99 (80-105) 09/23/18 15:06 POC ABG HCO3 21.2 09/23/18 15:06 POC ABG Total CO2 22 09/23/18 15:06 POC ABG O2 Sat 98 09/23/18 15:06 PT/INR, D-dimer PT 12.7 Sec. (12.2-14.9) 09/26/18 Unknown INR 0.90 (0.87-1.13) 09/26/18 Unknown Abnormal lab findings: Abnormal Labs 09/17/18 09/17/18 09/17/18 15:17 15:17 15:17 WBC RBC 3.34 L Hgb 9.1 L Hct 27.9 L MCH 27 L RDW 20.5 H Plt Count Lymph % (Auto) [facility] % (Auto) 8.[address] [facility] # Monocytes % (Manual) Lymphocytes # (Manual) APTT 22.2 L Potassium Chloride 107.7 H BUN 37 H Creatinine 2.3 H Glucose Calcium 7.4 L Phosphorus Magnesium 2.60 H ALT Total Creatine Kinase NT-Pro-B Natriuret Pep 992.5 H Serum Total Protein Total Protein 4.1 L Albumin 1.3 L Gamma Globulins PEP Interpretation Urine WBC (Auto) Urine Creatinine Ur Creatinine 24 Hour Ur Total Protein 24 Hr Urine Total Protein Valproic Acid Crossmatch 09/17/18 09/18/18 09/18/18 17:18 05:22 05:22 WBC 4.4 L RBC 3.06 L Hgb 8.5 L Hct 25.5 L MCH RDW 20.0 H Plt Count Lymph % (Auto) 36.[address] % (Auto) 12.[address] # Monocytes % (Manual) Lymphocytes # (Manual) APTT Potassium Chloride 107.2 H BUN 37 H Creatinine 2.2 H Glucose Calcium 7.4 L Phosphorus Magnesium ALT 6 L Total Creatine Kinase NT-Pro-B Natriuret Pep Serum Total Protein Total Protein 3.9 L Albumin 1.4 L Gamma Globulins PEP Interpretation Urine WBC (Auto) 15.0 H Urine Creatinine Ur Creatinine 24 Hour Ur Total Protein 24 Hr Urine Total Protein Valproic Acid Crossmatch 09/18/18 09/19/18 09/19/18 10:30 05:45 05:45 WBC RBC Hgb Hct MCH RDW Plt Count Lymph % (Auto) [facility] % (Auto) [facility] # Monocytes % (Manual) Lymphocytes # (Manual) APTT Potassium Chloride BUN 37 H Creatinine 2.1 H Glucose Calcium 7.3 L Phosphorus Magnesium ALT Total Creatine Kinase NT-Pro-B Natriuret Pep Serum Total Protein 3.4 L Total Protein Albumin 1.2 L Gamma Globulins 0.5 L PEP Interpretation see below H Urine WBC (Auto) Urine Creatinine 147.5 H Ur Creatinine 24 Hour 0.7 L Ur Total Protein 24 Hr 1073.50 H Urine Total Protein 226 H Valproic Acid Crossmatch 09/20/18 09/20/18 09/21/18 04:56 15:15 06:13 WBC RBC 2.84 L Hgb 7.8 L Hct 24.1 L MCH 27 L RDW 19.8 H Plt Count Lymph % (Auto) [facility] % (Auto) 12.[address] # Monocytes % (Manual) Lymphocytes # (Manual) APTT Potassium 5.4 H 5.5 H Chloride 108.2 H BUN 38 H Creatinine 2.4 H Glucose Calcium 7.2 L Phosphorus Magnesium ALT Total Creatine Kinase NT-Pro-B Natriuret Pep Serum Total Protein Total Protein Albumin Gamma Globulins PEP Interpretation Urine WBC (Auto) Urine Creatinine Ur Creatinine 24 Hour Ur Total Protein 24 Hr Urine Total Protein Valproic Acid Crossmatch 09/21/18 09/21/18 09/22/18 06:13 07:00 10:12 WBC RBC Hgb Hct MCH RDW Plt Count Lymph % (Auto) [facility] % (Auto) [facility] # Monocytes % (Manual) Lymphocytes # (Manual) APTT Potassium 5.2 H Chloride 108.2 H 111.5 H BUN 39 H 40 H Creatinine 2.7 H 3.1 H Glucose Calcium 7.3 L 7.1 L Phosphorus Magnesium ALT Total Creatine Kinase NT-Pro-B Natriuret Pep Serum Total Protein Total Protein Albumin Gamma Globulins PEP Interpretation Urine WBC (Auto) Urine Creatinine 97.5 H Ur Creatinine 24 Hour Ur Total Protein 24 Hr Urine Total Protein 708 H Valproic Acid Crossmatch 09/23/18 09/25/18 09/25/18 04:40 07:30 07:30 WBC RBC 2.55 L Hgb 6.9 L Hct 21.5 L MCH 27 L RDW 19.5 H Plt Count Lymph % (Auto) [facility] % (Auto) 12.[address] # Monocytes % (Manual) Lymphocytes # (Manual) APTT Potassium Chloride 109.1 H BUN 42 H 33 H Creatinine 3.8 H 4.4 H Glucose 102 H Calcium 7.2 L 7.3 L Phosphorus 5.00 H Magnesium ALT Total Creatine Kinase NT-Pro-B Natriuret Pep Serum Total Protein Total Protein Albumin Gamma Globulins PEP Interpretation Urine WBC (Auto) Urine Creatinine Ur Creatinine 24 Hour Ur Total Protein 24 Hr Urine Total Protein Valproic Acid Crossmatch 09/26/18 09/26/18 09/26/18 07:17 07:17 07:17 WBC RBC Hgb 6.7 L Hct 20.0 L MCH RDW Plt Count Lymph % (Auto) [facility] % (Auto) [facility] # Monocytes % (Manual) Lymphocytes # (Manual) APTT Potassium Chloride BUN 24 H Creatinine 4.1 H Glucose Calcium 7.0 L Phosphorus Magnesium ALT Total Creatine Kinase 559 H NT-Pro-B Natriuret Pep Serum Total Protein Total Protein Albumin Gamma Globulins PEP Interpretation Urine WBC (Auto) Urine Creatinine Ur Creatinine 24 Hour Ur Total Protein 24 Hr Urine Total Protein Valproic Acid 13.2 L Crossmatch 09/26/18 09/27/18 09/27/18 Unknown 07:42 07:42 WBC RBC 2.16 L Hgb 6.0 L Hct 18.1 L* MCH RDW 18.9 H Plt Count 130 L Lymph % (Auto) [facility] % (Auto) 15.[address] [facility] # Monocytes % (Manual) Lymphocytes # (Manual) APTT 36.7 H Potassium Chloride 108.4 H BUN 26 H Creatinine 4.8 H Glucose Calcium 7.1 L Phosphorus 4.60 H Magnesium ALT Total Creatine Kinase NT-Pro-B Natriuret Pep Serum Total Protein Total Protein Albumin Gamma Globulins PEP Interpretation Urine WBC (Auto) Urine Creatinine Ur Creatinine 24 Hour Ur Total Protein 24 Hr Urine Total Protein Valproic Acid Crossmatch 09/27/18 09/28/18 09/29/18 10:43 04:43 05:07 WBC RBC 3.29 L 3.28 L Hgb 8.9 L 8.9 L Hct 27.2 L D 27.1 L MCH 27 L 27 L RDW 19.3 H 19.3 H Plt Count 130 L 133 L Lymph % (Auto) [facility] % (Auto) 15.[address] # 0.9 H Monocytes % (Manual) Lymphocytes # (Manual) APTT Potassium Chloride BUN Creatinine Glucose Calcium Phosphorus Magnesium ALT Total Creatine Kinase NT-Pro-B Natriuret Pep Serum Total Protein Total Protein Albumin Gamma Globulins PEP Interpretation Urine WBC (Auto) Urine Creatinine Ur Creatinine 24 Hour Ur Total Protein 24 Hr Urine Total Protein Valproic Acid Crossmatch See Detail 09/29/18 10/01/18 10/01/18 05:07 06:16 06:16 WBC RBC 3.18 L Hgb 8.6 L Hct 26.2 L MCH 27 L RDW 19.3 H Plt Count Lymph % (Auto) [facility] % (Auto) [facility] # Monocytes % (Manual) Lymphocytes # (Manual) APTT Potassium Chloride BUN 22 H 22 H Creatinine 5.4 H 6.0 H Glucose Calcium 7.1 L 7.1 L Phosphorus Magnesium ALT Total Creatine Kinase NT-Pro-B Natriuret Pep Serum Total Protein Total Protein Albumin Gamma Globulins PEP Interpretation Urine WBC (Auto) Urine Creatinine Ur Creatinine 24 Hour Ur Total Protein 24 Hr Urine Total Protein Valproic Acid Crossmatch 10/05/18 10/05/18 06:50 06:50 WBC RBC 3.08 L Hgb 8.3 L Hct 25.6 L MCH 27 L RDW 19.0 H Plt Count Lymph % (Auto) [facility] % (Auto) [facility] # Monocytes % (Manual) 11.0 H Lymphocytes # (Manual) 0.9 L APTT Potassium Chloride BUN Creatinine 4.9 H Glucose Calcium 7.3 L Phosphorus Magnesium ALT Total Creatine Kinase NT-Pro-B Natriuret Pep Serum Total Protein Total Protein 4.1 L Albumin 1.5 L Gamma Globulins PEP Interpretation Urine WBC (Auto) Urine Creatinine Ur Creatinine 24 Hour Ur Total Protein 24 Hr Urine Total Protein Valproic Acid Crossmatch Allied health notes reviewed: nursing
[2018-10-05] MEDS: BENADRYL PO SCH (21:51)
[2018-10-05] MEDS: LOVENOX SUB-Q SCH (21:51)
[2018-10-05] MEDS: PERCOCET 5/325 PO PRN (21:52)
[2018-10-05] MEDS: HALDOL PO SCH (21:53)
--- NOTE | 2018-10-06 00:21 | XRay Report ---
PROCEDURE: XR CHEST 1V AP TECHNIQUE: Chest radiograph single view. HISTORY: pneumonia COMPARISONS: September 27, 2018 . FINDINGS: Heart: Normal. Mediastinum/Vessels: Normal. Lungs/Pleural space: Normal. Bony thorax: No acute osseous abnormality. Life support devices: There is a right central catheter that ends in the SVC. IMPRESSION: No acute cardiopulmonary abnormality. This document is electronically signed by Beata Elliott DO., October 06 2018 12:19:17 AM ET
[2018-10-06] MEDS: SODIUM CHLORIDE FLUSH SYRINGE 10 ML IV SCH ×3 (06:30→21:37)
[2018-10-06] MEDS: LASIX PO SCH ×2 (06:32→17:17)
[2018-10-06] MEDS: APRESOLINE PO SCH ×3 (06:39→21:36)
--- NOTE | 2018-10-06 08:22 | Progress Note ---
Assessment and Plan Assessment and plan: Patient is a 47 yo woman with a history of Obesity, HTN and Schizophrenia who presented to the ER with bilateral leg swelling, SOB and increase in the abdominal girth and weight gain of ~86 pounds in 10 weeks. Patient denies any h/o heart disease or Liver problem. Labs were significant for creatinine of 2.2, Hb 8.5, albumin 1.4 and 3+ protein in the urine. Patient was admitted with provisional diagnosis of Nephrotic syndrome. Nephrology was consulted for further evaluation and recommended Kidney biopsy; which patient refused on multiple occasions so Radiology declined to re-schedule the procedure. Also, During hospital coarse, she was found to have coffee ground emesis and EGD was done on 09/26/18 and showed M-W tear. Her hemoglobin was steadily dropping and she initially refused blood transfusion until Mr. Galeas convinced her to get the blood transfusion and do Hemodialysis which she refuses at times. - Acute kidney injury with ckd and nephrotic syndrome. Commenced hemodialysis on 09/24/2018 Patient intermittently still refuses hemodialysis on some days -Nephrotic syndrome. 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 Patient refused several times to do Kidney biospy. will revisit - VRE UTI: Possible cystitis. ID recommended treating patient with amoxicillin for 3 days that banding on 09/06/18 -Coffee-ground emesis with Radha Mendez Tear. 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 =Right lower extremity thigh pain. Doppler lower extremities bilaterally negative for DVT =Left breast swelling, unknown at present. Need outpatient Mammogram and U/S =Morbid obesity, bmi 55.2: lifestyle modification. BIPAP recommended but refuses =Medical noncompliance. Patient intermittently at times refusing care. Psych/Ol[place] told me she has decision making capacity. =Schizophrenia, Bipolar disorder. Continue current medications.. As above. Psych consulted =Hyperkalemia. Kayexalate. Recheck BMP in the morning. =Sepsis. Maybe from UTI as chest x-ray shows no evidence of pneumonia. Present on admission. Continue IV antibiotics. Etiology secondary to pneumonia and UTI. DVT/GI propy Disposition is problematic in this case. We are unable to get outpatient dialysis per case management due to diagnosis of LUCILA. Also the patient is refusing Biopsy which will help with the decision making, Refusing BIPAP ALSO. Will likely need ETHICS CONSULT. Poor prognosis based on patients refusal of care History Interval history: Patient seen and examined, "I want to sleep not now" was her initial response. Then "I want to go home" Nursing staff reports that the patient has been refusing care Hospitalist Physical - Physical exam Narrative exam: Constitutional: Generalized swelling. anasacar Head: Normocephalic atraumatic Eyes: Pupils are equal round and reactive to light Nose: No enlarged turbinates, no septal deviation. Mouth: Moist mucous membranes. Neck: Supple no thyromegaly. No bruit. No JVD Heart: Regular rate and rhythm, S1-S2 normal. No rubs murmurs or gallop Lungs: Diminished to auscultation bilaterally. no rales or rhonchi Abdomen: Soft, nontender. Bowel sound are present. Edematous Extremities: 2+ edema, no cyanosis, no clubbing. Neuro: Alert oriented Oriented x3. No focal sensory or motor deficit. Skin: No rashes or hyperpigmented spots Musculoskeletal system: No joint pain or swelling Hematological: No petechia or subcutanous hemorrhages. Lymphatic: No generalized lymphadenopathy Psychiatry: Euthymic. Calm. - Constitutional Vitals: Temp Pulse Resp BP Pulse Ox 99.1 F 76 20 146/59 93 10/05/18 21:56 10/05/18 22:00 10/05/18 22:00 10/05/18 21:56 10/05/18 21:56 General appearance: Present: no acute distress, obese Results - Labs CBC & Chem 7: 10/06/18 06:22 10/05/18 06:50 Labs: Laboratory Last Values WBC 6.2 K/mm3 (4.5-11.0) 10/05/18 06:50 RBC 3.08 M/mm3 (3.65-5.03) L 10/05/18 06:50 Hgb 8.3 gm/dl (10.1-14.3) L 10/05/18 06:50 Hct 25.6 % (30.3-42.9) L 10/05/18 06:50 MCV 83 fl (79-97) 10/05/18 06:50 MCH 27 pg (28-32) L 10/05/18 06:50 MCHC 32 % (30-34) 10/05/18 06:50 RDW 19.0 % (13.2-15.2) H 10/05/18 06:50 Plt Count 140 K/mm3 (140-440) 10/05/18 06:50 Lymph % (Auto) 24.2 % (13.4-35.0) 09/29/18 05:07 [place] % (Auto) Interlocking And Signal Mechanic 10/05/18 06:50 Eos % (Auto) 1.7 % (0.0-4.3) 09/29/18 05:07 Baso % (Auto) 0.3 % (0.0-1.8) 09/29/18 05:07 Lymph # 1.4 K/mm3 (1.2-5.4) 09/29/18 05:07 [place] # 0.9 K/mm3 (0.0-0.8) H 09/29/18 05:07 Eos # 0.1 K/mm3 (0.0-0.4) 09/29/18 05:07 Baso # 0.0 K/mm3 (0.0-0.1) 09/29/18 05:07 Add Manual Diff Complete 10/05/18 06:50 Total Counted 100 10/05/18 06:50 Seg Neutrophils % 58.2 % (40.0-70.0) 09/29/18 05:07 Seg Neuts % (Manual) 70.0 % (40.0-70.0) 10/05/18 06:50 Band Neutrophils % 0 % 10/05/18 06:50 Lymphocytes % (Manual) 15.0 % (13.4-35.0) 10/05/18 06:50 Reactive Lymphs % (Man) 0 % 10/05/18 06:50 Monocytes % (Manual) 11.0 % (0.0-7.3) H 10/05/18 06:50 Eosinophils % (Manual) 2.0 % (0.0-4.3) 10/05/18 06:50 Basophils % (Manual) 1.0 % (0.0-1.8) 10/05/18 06:50 Metamyelocytes % 0 % 10/05/18 06:50 Myelocytes % 1.0 % 10/05/18 06:50 Promyelocytes % 0 % 10/05/18 06:50 Blast Cells % 0 % 10/05/18 06:50 Nucleated RBC % Not Reportable 10/05/18 06:50 Seg Neutrophils # 3.5 K/mm3 (1.8-7.7) 09/29/18 05:07 Seg Neutrophils # Man 4.3 K/mm3 (1.8-7.7) 10/05/18 06:50 Band Neutrophils # 0.0 K/mm3 10/05/18 06:50 Lymphocytes # (Manual) 0.9 K/mm3 (1.2-5.4) L 10/05/18 06:50 Abs React Lymphs (Man) 0.0 K/mm3 10/05/18 06:50 Monocytes # (Manual) 0.7 K/mm3 (0.0-0.8) 10/05/18 06:50 Eosinophils # (Manual) 0.1 K/mm3 (0.0-0.4) 10/05/18 06:50 Basophils # (Manual) 0.1 K/mm3 (0.0-0.1) 10/05/18 06:50 Metamyelocytes # 0.0 K/mm3 10/05/18 06:50 Myelocytes # 0.1 K/mm3 10/05/18 06:50 Promyelocytes # 0.0 K/mm3 10/05/18 06:50 Blast Cells # 0.0 K/mm3 10/05/18 06:50 WBC Morphology Not Reportable 10/05/18 06:50 Hypersegmented Neuts Not Reportable 10/05/18 06:50 Hyposegmented Neuts Not Reportable 10/05/18 06:50 Hypogranular Neuts Not Reportable 10/05/18 06:50 Smudge Cells Not Reportable 10/05/18 06:50 Toxic Granulation Not Reportable 10/05/18 06:50 Toxic Vacuolation Not Reportable 10/05/18 06:50 Dohle Bodies Not Reportable 10/05/18 06:50 Pelger-Huet Anomaly Not Reportable 10/05/18 06:50 Latasha Rods Not Reportable 10/05/18 06:50 Platelet Estimate Consistent w auto 10/05/18 06:50 Clumped Platelets Not Reportable 10/05/18 06:50 Plt Clumps, EDTA Not Reportable 10/05/18 06:50 Large Platelets Not Reportable 10/05/18 06:50 Giant Platelets Not Reportable 10/05/18 06:50 Platelet Satelliting Not Reportable 10/05/18 06:50 Plt Morphology Comment Not Reportable 10/05/18 06:50 RBC Morphology Normal 10/05/18 06:50 Dimorphic RBCs Not Reportable 10/05/18 06:50 Polychromasia Not Reportable 10/05/18 06:50 Hypochromasia Not Reportable 10/05/18 06:50 Poikilocytosis Not Reportable 10/05/18 06:50 Anisocytosis Not Reportable 10/05/18 06:50 Microcytosis Not Reportable 10/05/18 06:50 Macrocytosis Not Reportable 10/05/18 06:50 Spherocytes Not Reportable 10/05/18 06:50 Pappenheimer Bodies Not Reportable 10/05/18 06:50 Sickle Cells Not Reportable 10/05/18 06:50 Target Cells Not Reportable 10/05/18 06:50 Tear Drop Cells Not Reportable 10/05/18 06:50 Ovalocytes Not Reportable 10/05/18 06:50 Helmet Cells Not Reportable 10/05/18 06:50 Maldonado-Wann Bodies Not Reportable 10/05/18 06:50 [place] Rings Not Reportable 10/05/18 06:50 [place] Cells Not Reportable 10/05/18 06:50 Bite Cells Not Reportable 10/05/18 06:50 Crenated Cell Not Reportable 10/05/18 06:50 Elliptocytes Not Reportable 10/05/18 06:50 Acanthocytes (Spur) Not Reportable 10/05/18 06:50 Rouleaux Not Reportable 10/05/18 06:50 Hemoglobin C Crystals Not Reportable 10/05/18 06:50 Schistocytes Not Reportable 10/05/18 06:50 Malaria parasites Not Reportable 10/05/18 06:50 Paul Bodies Not Reportable 10/05/18 06:50 Hem Pathologist Commnt No 10/05/18 06:50 PT 12.7 Sec. (12.2-14.9) 09/26/18 Unknown INR 0.90 (0.87-1.13) 09/26/18 Unknown APTT 36.7 Sec. (24.2-36.6) H 09/26/18 Unknown POC ABG pH 7.434 (7.35-7.45) 10/05/18 18:03 POC ABG pCO2 43.4 (35-45) 10/05/18 18:03 POC ABG pO2 57 (80-105) L 10/05/18 18:03 POC ABG HCO3 29.0 (22-26 mml/L) 10/05/18 18:03 POC ABG Total CO2 30 (23-27mmol/L) 10/05/18 18:03 POC ABG O2 Sat 90 10/05/18 18:03 POC ABG Base Excess 5 ((-2) - (+3)mmol/L) 10/05/18 18:03 FiO2 21 % 10/05/18 18:03 Sodium 142 mmol/L (137-145) 10/05/18 06:50 Potassium 4.3 mmol/L (3.6-5.0) 10/05/18 06:50 Chloride 105.1 mmol/L (98-107) 10/05/18 06:50 Carbon Dioxide 29 mmol/L (22-30) 10/05/18 06:50 Anion Gap 12 mmol/L 10/05/18 06:50 BUN 16 mg/dL (7-17) 10/05/18 06:50 Creatinine 4.9 mg/dL (0.7-1.2) H 10/05/18 06:50 Estimated GFR 12 ml/min 10/05/18 06:50 BUN/Creatinine Ratio 3 % 10/05/18 06:50 Glucose 85 mg/dL (65-100) 10/05/18 06:50 Calcium 7.3 mg/dL (8.4-10.2) L 10/05/18 06:50 Phosphorus 4.60 mg/dL (2.5-4.5) H 09/27/18 07:42 Magnesium 2.60 mg/dL (1.7-2.3) H 09/17/18 15:17 Total Bilirubin < 0.20 mg/dL (0.1-1.2) 10/05/18 06:50 AST 14 units/L (5-40) 10/05/18 06:50 ALT 7 units/L (7-56) 10/05/18 06:50 Alkaline Phosphatase 52 units/L (35-129) 10/05/18 06:50 Total Creatine Kinase 559 units/L (30-135) H 09/26/18 07:17 Troponin T 0.012 ng/mL (0.00-0.029) 09/17/18 15:17 NT-Pro-B Natriuret Pep 992.5 pg/mL (0-450) H 09/17/18 15:17 Serum Total Protein 3.4 g/dL (6.1-8.1) L 09/19/18 05:45 Total Protein 4.1 g/dL (6.3-8.2) L 10/05/18 06:50 Albumin 1.5 g/dL (3.9-5) L 10/05/18 06:50 Albumin/Globulin Ratio 0.6 % 10/05/18 06:50 Uosyy-5-Kavfibrcs 0.3 g/dL (0.2-0.3) 09/19/18 05:45 Gkqmo-5-Ncxzhzfef 0.8 g/dL (0.5-0.9) 09/19/18 05:45 Beta Globulins 0.4 g/dL (0.2-0.5) 09/19/18 05:45 Gamma Globulins 0.5 g/dL (0.8-1.7) L 09/19/18 05:45 Abnorm Protein Band 1 see below 09/19/18 05:45 PEP Interpretation see below H 09/19/18 05:45 Amylase 53 units/L (27-131) 09/25/18 13:53 Lipase 48 units/L (13-60) 09/25/18 13:53 HCG, Qual Negative (Negative) 09/25/18 13:53 PTH Intact 46.07 pg/mL (15-65) 09/19/18 05:45 Urine Color Yellow (Yellow) 09/17/18 17:18 Urine Turbidity Cloudy (Clear) 09/17/18 17:18 Urine pH 5.0 (5.0-7.0) 09/17/18 17:18 Ur Specific [place] 1.029 (1.003-1.030) 09/17/18 17:18 Urine Protein >500 mg/dL (Negative) 09/17/18 17:18 Urine Glucose (UA) Neg mg/dL (Negative) 09/17/18 17:18 Urine Ketones Tr mg/dL (Negative) 09/17/18 17:18 Urine Blood Sm (Negative) 09/17/18 17:18 Urine Nitrite Neg (Negative) 09/17/18 17:18 Urine Bilirubin Neg (Negative) 09/17/18 17:18 Urine Urobilinogen < 2.0 mg/dL (<2.0) 09/17/18 17:18 Ur Leukocyte Esterase Neg (Negative) 09/17/18 17:18 Urine WBC (Auto) 15.0 /HPF (0.0-6.0) H 09/17/18 17:18 Urine RBC (Auto) 13.0 /HPF (0.0-6.0) 09/17/18 17:18 U Epithel Cells (Auto) 6.0 /HPF (0-13.0) 09/17/18 17:18 Urine Bacteria (Auto) 2+ /HPF (Negative) 09/17/18 17:18 Urine WBC Clumps 2+ /HPF 09/17/18 17:18 Hyaline Casts 6 /LPF 09/17/18 17:18 Urine Mucus Few /HPF 09/17/18 17:18 Urine Yeast (Budding) 2+ /HPF 09/17/18 17:18 Urine Eosinophils None seen (None Seen) 09/18/18 10:30 Urine Total Volume 475 ml 09/18/18 10:30 Urine Creatinine 97.5 mg/dL (0.1-20.0) H 09/21/18 07:00 Ur Creatinine 24 Hour 0.7 (0.8-2.8) L 09/18/18 10:30 Ur Total Protein 24 Hr 1073.50 mg/dL (2-200) H 09/18/18 10:30 Protein/Creatinin Ratio 7.26 09/21/18 07:00 Urine Sodium 53 mmol/L 09/21/18 07:00 Urine Urea Nitrogen 467 09/18/18 10:30 Ur Urea Nitrogen 24 Hr 2.22 09/18/18 10:30 Urine Total Protein 708 mg/dL (5-11.8) H 09/21/18 07:00 Urine Opiates Screen Presumptive negative 03/04/19 17:18 Urine Methadone Screen Presumptive negative 09/17/18 17:18 Ur Barbiturates Screen Presumptive negative 09/17/18 17:18 Valproic Acid 13.2 ug/mL (50-100) L 09/26/18 07:17 Ur Phencyclidine Scrn Presumptive negative 09/17/18 17:18 Ur Amphetamines Screen Presumptive negative 09/17/18 17:18 U Benzodiazepines Scrn Presumptive negative 09/17/18 17:18 Urine Cocaine Screen Presumptive negative 09/17/18 17:18 U Marijuana (THC) Screen Presumptive negative 09/17/18 17:18 Drugs of Abuse Note Disclamer 09/17/18 17:18 BI Screen Negative (Negative) 09/19/18 05:45 Proteinase 3 (PR3) Ab <1.0 AI (<1.0) 09/19/18 05:45 Myeloperoxidase Ab <1.0 AI (<1.0) 09/19/18 05:45 Glomerular Base Mem IgG See scanned result 09/19/18 05:45 Complement C3 143 mg/dL (83-193) 09/19/18 05:45 Complement C4 56 mg/dL (15-57) 09/19/18 05:45 Hepatitis A IgM Ab Non-reactive (NonReactive) 09/19/18 05:45 Hep Bs Antigen Non-reactive (Negative) 09/19/18 05:45 Hep B Core IgM Ab Non-reactive (NonReactive) 09/19/18 05:45 Hepatitis C Antibody Non-reactive (NonReactive) 09/19/18 05:45 HIV 1&2 Antibody Rapid Non react (Non React) 09/27/18 07:42 HIV P24 Antigen Non react (Non React) 09/27/18 07:42 Blood Type O POSITIVE 09/27/18 10:43 Antibody Screen Negative 09/27/18 10:43 Crossmatch See Detail 09/27/18 10:43 Active Medications - Current Medications Current Medications: Generic Name Dose Route Start Last Admin Trade Name Freq PRN Reason Stop Dose Admin Acetaminophen 650 mg 09/18/18 02:40 09/27/18 05:36 Tylenol PO 650 mg Q4H PRN Administration Pain MILD(1-3)/Fever >100.5/MENDOZA Atorvastatin Calcium 40 mg 09/18/18 22:00 10/05/18 21:51 Lipitor PO 40 mg QHS LUZ Administration Diphenhydramine HCl 50 mg 09/18/18 22:00 10/05/18 21:51 Benadryl PO 50 mg HS LUZ Administration Divalproex Sodium 500 mg 09/18/18 10:00 10/05/18 21:[address] PO 500 mg BID LUZ Administration Enoxaparin Sodium 30 mg 09/20/18 22:00 10/05/18 21:51 Lovenox SUB-Q 30 mg QDAY@2200 LUZ Administration Epoetin Luis 20,000 unit 09/26/18 12:23 10/04/18 22:40 Procrit SUB-Q 20,000 unit KUSHAL PRN Administration hemodialysis Furosemide 80 mg 09/29/18 06:00 10/06/18 06:32 Lasix PO 80 mg 0600,1800 LUZ Administration Haloperidol 5 mg 09/25/18 22:00 10/05/18 21:53 Haldol PO 5 mg HS LUZ Administration Hydralazine HCl 10 mg 09/22/18 06:28 09/22/18 12:12 Apresoline IV 10 mg Q4H PRN Administration systolic b/p >165 Hydralazine HCl 50 mg 09/22/18 14:00 10/06/18 06:39 Apresoline PO 50 mg Q8HR LUZ Administration Hydromorphone HCl 0.5 mg 09/18/18 02:40 Dilaudid IV Q3H PRN Pain , Severe (7-10) Sodium Chloride 100 mls @ 999 mls/hr 10/04/18 11:16 Nacl 0.9% IV KUSHAL PRN Hypotension Losartan Potassium 50 mg 10/04/18 10:00 10/05/18 10:11 Cozaar PO 50 mg QDAY LUZ Administration Ondansetron HCl 4 mg 09/18/18 02:40 09/23/18 08:45 Zofran IV 4 mg Q8H PRN Administration Nausea And Vomiting Oxycodone/Acetaminophen 1 tab 09/18/18 02:40 10/05/18 21:52 Percocet 5/325 PO 1 tab Q6H PRN Administration Pain, Moderate (4-6) Pantoprazole Sodium 40 mg 10/02/18 10:00 10/05/18 10:11 Protonix PO 40 mg DAILY LUZ Administration Sodium Chloride 10 ml 09/18/18 10:00 10/06/18 06:30 Sodium Chloride Flush Syringe 10 Ml IV 10 ml BID LUZ Administration Sodium Chloride 10 ml 09/18/18 02:40 Sodium Chloride Flush Syringe 10 Ml IV PRN PRN LINE FLUSH Nutrition/Malnutrition Assess - Dietary Evaluation Nutrition/Malnutrition Findings: Nutrition Notes Start: 09/24/18 15:36 Freq: Status: Active Protocol: Document 10/05/18 14:16 RD (Rec: 10/05/18 14:35 RD [email or web address]) Co-Sign 10/05/18 14:16 OL Nutrition Notes Need for Assessment generated from: MD Order Initial or Follow up Brief Note Current Diagnosis Sepsis,Respiratory Failure Other Pertinent Diagnosis renal failure on HD, nephrotic syndrome, anemia Current Diet GI soft Labs/Tests Albumin 1.5 Subjective/Other Information RD consulted for malnutrition risk. Pt asleep at time of visit. Nutrition Intervention Follow-Up By: 10/08/18 Additional Comments f/u: assessment needs
[2018-10-06 08:51] LABS: Hematocrit 25.2 % (30.3-42.9); Hemoglobin 8.1 gm/dl (10.1-14.3); Mean Corpuscular HGB Conc 32 % (30-34); Mean Corpuscular Volume 83 fl (79-97); Platelet Count 156 K/mm3 (140-440); Red Blood Count 3.04 M/mm3 (3.65-5.03); Red Cell Distribution Width 19.2 % (13.2-15.2)
[2018-10-06] MEDS ORDERED: NACL 0.9% 100 ML IV PRN (09:07)
[2018-10-06] MEDS: COZAAR PO SCH (09:35)
[2018-10-06] MEDS: PROTONIX PO SCH (09:35)
[2018-10-06 10:12] LABS: Basophils % (Manual) 0 % (0.0-1.8); Total Cells Counted 100
[2018-10-06 10:13] LABS: Hypochromasia Few; Ovalocytes Few; Platelet Estimate Consistent w Auto
[2018-10-06] MEDS: PERCOCET 5/325 PO PRN (11:37)
--- NOTE | 2018-10-06 12:58 | Progress Note ---
Assessment and Plan 1. Acute kidney injury: LUCILA superimposed on CKD likely related Nephrotic syndrome. Patient was started on hemodialysis on 09/24/2018 due to worsening renal function, anasarca and suspected pulmonary edema. Last dialyzed 2 days ago. Patient has been refusing HD / Isolated UF intermittently. HD today. Renal prognosis appears to be poor at this time. 2. Nephrotic syndrome: Possible causes include but not limited to FSGS, Minimal change, Membranous and Lupus nephritis. Complements, BI, ANCA, SPEP, GBM Ab, Hepatitis panel and HIV are negative. Made several attempts to do Kidney biospy but she refused. Patient is on Lovenox to prevent DVT. Continue ARB and Statin. 3. FEN: Volume overload, UF with HD. On Lasix. Hyperkalemia, improved. 4. VRE bacteriuria. 5. HTN. 6. Anemia: Present on admission. S/p PRBC. Epogen with HD. 7. Schizophrenia. 8. Medical non-compliance. Subjective Date of service: 10/06/18 Principal diagnosis: coffee-ground emesis Interval history: Patient was seen and examined at the bedside. Doing ok. Objective - Vital Signs Vital signs: Vital Signs - 12hr 10/06/18 11:57 Temperature 98.6 F Pulse Rate 99 H Respiratory 22 Rate Blood Pressure 153/68 [Left] O2 Sat by Pulse 96 Oximetry - General Appearance General appearance: well-developed, well-nourished, appears stated age, other (no tin distress, facial plethora noted, right IJ tunnel catheter) EENT: ATNC, PERRL, hearing intact, vision intact Neck: supple Respiratory: Present: Clear to Ascultation Cardiology: regular, S1S2, no murmurs Gastrointestinal: normoactive bowel sounds, no tenderness, no distended Integumentary: no rash, warm and dry Neurologic: no focal deficit, no asterixis, alert and oriented x3 Musculoskeletal: other (2+ edema of both LEs noted) - Lab 10/06/18 06:22 10/05/18 06:50 Most recent lab results Calcium 7.3 mg/dL (8.4-10.2) L 10/05/18 06:50 Phosphorus 4.60 mg/dL (2.5-4.5) H 09/27/18 07:42 Magnesium 2.60 mg/dL (1.7-2.3) H 09/17/18 15:17 Urine Creatinine 97.5 mg/dL (0.1-20.0) H 09/21/18 07:00 Ur Total Protein 24 Hr 1073.50 mg/dL (2-200) H 09/18/18 10:30 Urine Sodium 53 mmol/L 09/21/18 07:00 Urine Total Protein 708 mg/dL (5-11.8) H 09/21/18 07:00 Medications & Allergies - Medications Allergies/Adverse Reactions: Allergies No Known Allergies Allergy (Unverified 09/17/18 15:05) Home Medications: Home Medications Medication Instructions Recorded Confirmed Last Taken Type Divalproex Sodium [Depakote] 500 mg PO BID 09/17/18 09/17/18 Unknown History Haldol (Nf) 10 mg PO QHS 09/17/18 10/06/18 Unknown History Invega Sustenna 156 mg IM QMONTH 09/17/18 10/06/18 Unknown History diphenhydrAMINE [Benadryl CAP] 50 mg PO HS 09/17/18 09/17/18 Unknown History Active Medications: Generic Name Dose Route Start Last Admin Trade Name Freq PRN Reason Stop Dose Admin Acetaminophen 650 mg 09/18/18 02:40 09/27/18 05:36 Tylenol PO 650 mg Q4H PRN Administration Pain MILD(1-3)/Fever >100.5/MENDOZA Atorvastatin Calcium 40 mg 09/18/18 22:00 10/05/18 21:51 Lipitor PO 40 mg QHS LUZ Administration Diphenhydramine HCl 50 mg 09/18/18 22:00 10/05/18 21:51 Benadryl PO 50 mg HS LUZ Administration Divalproex Sodium 500 mg 09/18/18 10:00 10/06/18 09:[address] PO Not Given BID LUZ Enoxaparin Sodium 30 mg 09/20/18 22:00 10/05/18 21:51 Lovenox SUB-Q 30 mg QDAY@2200 LUZ Administration Epoetin Luis 20,000 unit 09/26/18 12:23 10/04/18 22:40 Procrit SUB-Q 20,000 unit KUSHAL PRN Administration hemodialysis Furosemide 80 mg 09/29/18 06:00 10/06/18 06:32 Lasix PO 80 mg 0600,1800 LUZ Administration Haloperidol 5 mg 09/25/18 22:00 10/05/18 21:53 Haldol PO 5 mg HS LUZ Administration Hydralazine HCl 10 mg 09/22/18 06:28 09/22/18 12:12 Apresoline IV 10 mg Q4H PRN Administration systolic b/p >165 Hydralazine HCl 50 mg 09/22/18 14:00 10/06/18 06:39 Apresoline PO 50 mg Q8HR LUZ Administration Hydromorphone HCl 0.5 mg 09/18/18 02:40 Dilaudid IV Q3H PRN Pain , Severe (7-10) Sodium Chloride 100 mls @ 999 mls/hr 10/06/18 09:07 Nacl 0.9% IV KUSHAL PRN Hypotension Losartan Potassium 50 mg 10/04/18 10:00 10/06/18 09:35 Cozaar PO Not Given QDAY LUZ Ondansetron HCl 4 mg 09/18/18 02:40 09/23/18 08:45 Zofran IV 4 mg Q8H PRN Administration Nausea And Vomiting Oxycodone/Acetaminophen 1 tab 09/18/18 02:40 10/06/18 11:37 Percocet 5/325 PO 1 tab Q6H PRN Administration Pain, Moderate (4-6) Pantoprazole Sodium 40 mg 10/02/18 10:00 10/06/18 09:35 Protonix PO Not Given DAILY LUZ Sodium Chloride 10 ml 09/18/18 10:00 10/06/18 09:35 Sodium Chloride Flush Syringe 10 Ml IV 10 ml BID LUZ Administration Sodium Chloride 10 ml 09/18/18 02:40 Sodium Chloride Flush Syringe 10 Ml IV PRN PRN LINE FLUSH
--- NOTE | 2018-10-06 13:08 | Progress Note ---
Assessment and Plan Acute hypoxemic respiratory failure Sepsis secondary to left lower lobe PNA Extreme obesity Nephrotic syndrome Enterococcus UTI Renal failure on HD Nephrotic syndrome, refused renal biopsy Anemia - continue supplemental oxygen to keep O2 sat's > 90% - continue to monitor off antibiotics -nocturnal BIPAP and prn during the day - bronchodilators per protocol - weight loss counseled - now dialysis dependent; continue HD/UF per nephrology prescription - no active GI bleeding and was related to Radha Mnedez tear - VTE w/up negative -influenza and pneumonia vaccination per protocol -out patient sleep study on discharge -weight loss and lifestyle modifications discussed. - continue other care per attending / other consultants Continue all supportive care. Discharge planning Subjective Date of service: 10/06/18 Principal diagnosis: coffee-ground emesis Interval history: follow up: Acute hypoxic respiratory failure: Abnormal CXR, Extreme obesity with probable STEFF Seen and examined. Vitals, labs, medications, chart and imaging reviewed. No acute overnight events, remains on supplemental oxygen. In consistently tolerating NIPPV Lying quietly in bed No fevers , no chills, no nausea or vomiting Objective Vital Signs - 12hr 10/06/18 11:57 Temperature 98.6 F Pulse Rate 99 H Respiratory 22 Rate Blood Pressure 153/68 [Left] O2 Sat by Pulse 96 Oximetry Constitutional: no acute distress, alert Eyes: non-icteric ENT: oropharynx moist Neck: supple, no JVD Effort: normal Ascultation: Bilateral: clear, diminished breath sounds Percussion: Bilateral: not dull Cardiovascular: regular rate and rhythm, other (S1,S2, no murmurs) Gastrointestinal: normoactive bowel sounds, soft, non-tender Integumentary: normal Extremities: no cyanosis, no edema Neurologic: normal mental status, non-focal exam, pupils equal and round, CN II- XII normal, motor strength normal and Psychiatric: mood appropriate, affect normal CBC and BMP: 10/07/18 13:11 10/07/18 13:11 ABG, PT/INR, D-dimer: ABG POC ABG pH 7.434 (7.35-7.45) 10/05/18 18:03 POC ABG pCO2 43.4 (35-45) 10/05/18 18:03 POC ABG pO2 57 (80-105) L 10/05/18 18:03 POC ABG HCO3 29.0 (22-26 mml/L) 10/05/18 18:03 POC ABG Total CO2 30 (23-27mmol/L) 10/05/18 18:03 POC ABG O2 Sat 90 10/05/18 18:03 PT/INR, D-dimer PT 12.7 Sec. (12.2-14.9) 09/26/18 Unknown INR 0.90 (0.87-1.13) 09/26/18 Unknown Abnormal lab findings: Abnormal Labs 09/17/18 09/17/18 09/17/18 15:17 15:17 15:17 WBC RBC 3.34 L Hgb 9.1 L Hct 27.9 L MCH 27 L RDW 20.5 H Plt Count Lymph % (Auto) [place] % (Auto) 8.8 H [place] # Seg Neuts % (Manual) Monocytes % (Manual) Lymphocytes # (Manual) Monocytes # (Manual) APTT 22.2 L POC ABG pO2 Potassium Chloride 107.7 H BUN 37 H Creatinine 2.3 H Glucose Calcium 7.4 L Phosphorus Magnesium 2.60 H ALT Total Creatine Kinase NT-Pro-B Natriuret Pep 992.5 H Serum Total Protein Total Protein 4.1 L Albumin 1.3 L Gamma Globulins PEP Interpretation Urine WBC (Auto) Urine Creatinine Ur Creatinine 24 Hour Ur Total Protein 24 Hr Urine Total Protein Valproic Acid Crossmatch 09/17/18 09/18/18 09/18/18 17:18 05:22 05:22 WBC 4.4 L RBC 3.06 L Hgb 8.5 L Hct 25.5 L MCH RDW 20.0 H Plt Count Lymph % (Auto) 36.5 H [place] % (Auto) 12.3 H [place] # Seg Neuts % (Manual) Monocytes % (Manual) Lymphocytes # (Manual) Monocytes # (Manual) APTT POC ABG pO2 Potassium Chloride 107.2 H BUN 37 H Creatinine 2.2 H Glucose Calcium 7.4 L Phosphorus Magnesium ALT 6 L Total Creatine Kinase NT-Pro-B Natriuret Pep Serum Total Protein Total Protein 3.9 L Albumin 1.4 L Gamma Globulins PEP Interpretation Urine WBC (Auto) 15.0 H Urine Creatinine Ur Creatinine 24 Hour Ur Total Protein 24 Hr Urine Total Protein Valproic Acid Crossmatch 09/18/18 09/19/18 09/19/18 10:30 05:45 05:45 WBC RBC Hgb Hct MCH RDW Plt Count Lymph % (Auto) [place] % (Auto) [place] # Seg Neuts % (Manual) Monocytes % (Manual) Lymphocytes # (Manual) Monocytes # (Manual) APTT POC ABG pO2 Potassium Chloride BUN 37 H Creatinine 2.1 H Glucose Calcium 7.3 L Phosphorus Magnesium ALT Total Creatine Kinase NT-Pro-B Natriuret Pep Serum Total Protein 3.4 L Total Protein Albumin 1.2 L Gamma Globulins 0.5 L PEP Interpretation see below H Urine WBC (Auto) Urine Creatinine 147.5 H Ur Creatinine 24 Hour 0.7 L Ur Total Protein 24 Hr 1073.50 H Urine Total Protein 226 H Valproic Acid Crossmatch 09/20/18 09/20/18 09/21/18 04:56 15:15 06:13 WBC RBC 2.84 L Hgb 7.8 L Hct 24.1 L MCH 27 L RDW 19.8 H Plt Count Lymph % (Auto) [place] % (Auto) 12.9 H [place] # Seg Neuts % (Manual) Monocytes % (Manual) Lymphocytes # (Manual) Monocytes # (Manual) APTT POC ABG pO2 Potassium 5.4 H 5.5 H Chloride 108.2 H BUN 38 H Creatinine 2.4 H Glucose Calcium 7.2 L Phosphorus Magnesium ALT Total Creatine Kinase NT-Pro-B Natriuret Pep Serum Total Protein Total Protein Albumin Gamma Globulins PEP Interpretation Urine WBC (Auto) Urine Creatinine Ur Creatinine 24 Hour Ur Total Protein 24 Hr Urine Total Protein Valproic Acid Crossmatch 09/21/18 09/21/18 09/22/18 06:13 07:00 10:12 WBC RBC Hgb Hct MCH RDW Plt Count Lymph % (Auto) [place] % (Auto) [place] # Seg Neuts % (Manual) Monocytes % (Manual) Lymphocytes # (Manual) Monocytes # (Manual) APTT POC ABG pO2 Potassium 5.2 H Chloride 108.2 H 111.5 H BUN 39 H 40 H Creatinine 2.7 H 3.1 H Glucose Calcium 7.3 L 7.1 L Phosphorus Magnesium ALT Total Creatine Kinase NT-Pro-B Natriuret Pep Serum Total Protein Total Protein Albumin Gamma Globulins PEP Interpretation Urine WBC (Auto) Urine Creatinine 97.5 H Ur Creatinine 24 Hour Ur Total Protein 24 Hr Urine Total Protein 708 H Valproic Acid Crossmatch 09/23/18 09/25/18 09/25/18 04:40 07:30 07:30 WBC RBC 2.55 L Hgb 6.9 L Hct 21.5 L MCH 27 L RDW 19.5 H Plt Count Lymph % (Auto) [place] % (Auto) 12.2 H [place] # Seg Neuts % (Manual) Monocytes % (Manual) Lymphocytes # (Manual) Monocytes # (Manual) APTT POC ABG pO2 Potassium Chloride 109.1 H BUN 42 H 33 H Creatinine 3.8 H 4.4 H Glucose 102 H Calcium 7.2 L 7.3 L Phosphorus 5.00 H Magnesium ALT Total Creatine Kinase NT-Pro-B Natriuret Pep Serum Total Protein Total Protein Albumin Gamma Globulins PEP Interpretation Urine WBC (Auto) Urine Creatinine Ur Creatinine 24 Hour Ur Total Protein 24 Hr Urine Total Protein Valproic Acid Crossmatch 09/26/18 09/26/18 09/26/18 07:17 07:17 07:17 WBC RBC Hgb 6.7 L Hct 20.0 L MCH RDW Plt Count Lymph % (Auto) [place] % (Auto) [place] # Seg Neuts % (Manual) Monocytes % (Manual) Lymphocytes # (Manual) Monocytes # (Manual) APTT POC ABG pO2 Potassium Chloride BUN 24 H Creatinine 4.1 H Glucose Calcium 7.0 L Phosphorus Magnesium ALT Total Creatine Kinase 559 H NT-Pro-B Natriuret Pep Serum Total Protein Total Protein Albumin Gamma Globulins PEP Interpretation Urine WBC (Auto) Urine Creatinine Ur Creatinine 24 Hour Ur Total Protein 24 Hr Urine Total Protein Valproic Acid 13.2 L Crossmatch 09/26/18 09/27/18 09/27/18 Unknown 07:42 07:42 WBC RBC 2.16 L Hgb 6.0 L Hct 18.1 L* MCH RDW 18.9 H Plt Count 130 L Lymph % (Auto) [place] % (Auto) 15.8 H [place] # Seg Neuts % (Manual) Monocytes % (Manual) Lymphocytes # (Manual) Monocytes # (Manual) APTT 36.7 H POC ABG pO2 Potassium Chloride 108.4 H BUN 26 H Creatinine 4.8 H Glucose Calcium 7.1 L Phosphorus 4.60 H Magnesium ALT Total Creatine Kinase NT-Pro-B Natriuret Pep Serum Total Protein Total Protein Albumin Gamma Globulins PEP Interpretation Urine WBC (Auto) Urine Creatinine Ur Creatinine 24 Hour Ur Total Protein 24 Hr Urine Total Protein Valproic Acid Crossmatch 09/27/18 09/28/18 09/29/18 10:43 04:43 05:07 WBC RBC 3.29 L 3.28 L Hgb 8.9 L 8.9 L Hct 27.2 L D 27.1 L MCH 27 L 27 L RDW 19.3 H 19.3 H Plt Count 130 L 133 L Lymph % (Auto) [place] % (Auto) 15.6 H [place] # 0.9 H Seg Neuts % (Manual) Monocytes % (Manual) Lymphocytes # (Manual) Monocytes # (Manual) APTT POC ABG pO2 Potassium Chloride BUN Creatinine Glucose Calcium Phosphorus Magnesium ALT Total Creatine Kinase NT-Pro-B Natriuret Pep Serum Total Protein Total Protein Albumin Gamma Globulins PEP Interpretation Urine WBC (Auto) Urine Creatinine Ur Creatinine 24 Hour Ur Total Protein 24 Hr Urine Total Protein Valproic Acid Crossmatch See Detail 09/29/18 10/01/18 10/01/18 05:07 06:16 06:16 WBC RBC 3.18 L Hgb 8.6 L Hct 26.2 L MCH 27 L RDW 19.3 H Plt Count Lymph % (Auto) [place] % (Auto) [place] # Seg Neuts % (Manual) Monocytes % (Manual) Lymphocytes # (Manual) Monocytes # (Manual) APTT POC ABG pO2 Potassium Chloride BUN 22 H 22 H Creatinine 5.4 H 6.0 H Glucose Calcium 7.1 L 7.1 L Phosphorus Magnesium ALT Total Creatine Kinase NT-Pro-B Natriuret Pep Serum Total Protein Total Protein Albumin Gamma Globulins PEP Interpretation Urine WBC (Auto) Urine Creatinine Ur Creatinine 24 Hour Ur Total Protein 24 Hr Urine Total Protein Valproic Acid Crossmatch 10/05/18 10/05/18 10/05/18 06:50 06:50 18:03 WBC RBC 3.08 L Hgb 8.3 L Hct 25.6 L MCH 27 L RDW 19.0 H Plt Count Lymph % (Auto) [place] % (Auto) [place] # Seg Neuts % (Manual) Monocytes % (Manual) 11.0 H Lymphocytes # (Manual) 0.9 L Monocytes # (Manual) APTT POC ABG pO2 57 L Potassium Chloride BUN Creatinine 4.9 H Glucose Calcium 7.3 L Phosphorus Magnesium ALT Total Creatine Kinase NT-Pro-B Natriuret Pep Serum Total Protein Total Protein 4.1 L Albumin 1.5 L Gamma Globulins PEP Interpretation Urine WBC (Auto) Urine Creatinine Ur Creatinine 24 Hour Ur Total Protein 24 Hr Urine Total Protein Valproic Acid Crossmatch 10/06/18 06:22 WBC RBC 3.04 L Hgb 8.1 L Hct 25.2 L MCH 27 L RDW 19.2 H Plt Count Lymph % (Auto) [place] % (Auto) [place] # Seg Neuts % (Manual) 71.0 H Monocytes % (Manual) 14.0 H Lymphocytes # (Manual) 1.0 L Monocytes # (Manual) 1.0 H APTT POC ABG pO2 Potassium Chloride BUN Creatinine Glucose Calcium Phosphorus Magnesium ALT Total Creatine Kinase NT-Pro-B Natriuret Pep Serum Total Protein Total Protein Albumin Gamma Globulins PEP Interpretation Urine WBC (Auto) Urine Creatinine Ur Creatinine 24 Hour Ur Total Protein 24 Hr Urine Total Protein Valproic Acid Crossmatch Allied health notes reviewed: nursing
[2018-10-06] MEDS: ZOFRAN IV PRN (18:16)
[2018-10-06] MEDS: HALDOL PO SCH (21:36)
[2018-10-06] MEDS: LOVENOX SUB-Q SCH (21:36)
[2018-10-06] MEDS: BENADRYL PO SCH (21:36)
[2018-10-07] MEDS: ZOFRAN IV PRN (03:15)
[2018-10-07] MEDS: APRESOLINE PO SCH (05:22)
[2018-10-07] MEDS: LASIX PO SCH ×2 (05:22→19:47)
[2018-10-07] MEDS ORDERED: LASIX IV ONE (11:00)
--- NOTE | 2018-10-07 12:44 | Progress Note ---
Assessment and Plan 1. Acute kidney injury: LUCILA superimposed on CKD likely related Nephrotic syndrome. Patient was started on hemodialysis on 09/24/2018 due to worsening renal function, anasarca and suspected pulmonary edema. Last dialyzed yesterday. Patient has been refusing HD / Isolated UF intermittently. Next HD tomorrow. Renal prognosis appears to be poor at this time. 2. Nephrotic syndrome: Possible causes include but not limited to FSGS, Minimal change, Membranous and Lupus nephritis. Complements, BI, ANCA, SPEP, GBM Ab, Hepatitis panel and HIV are negative. Made several attempts to do Kidney biospy but she refused. Patient is on Lovenox to prevent DVT. Continue ARB and Statin. 3. FEN: Volume overload, UF with HD. On Lasix. Hyperkalemia, improved. 4. VRE bacteriuria. 5. HTN: Monitor BP. 6. Anemia: Present on admission. S/p PRBC. Epogen with HD. 7. Schizophrenia. 8. Medical non-compliance. Subjective Date of service: 10/07/18 Principal diagnosis: coffee-ground emesis Interval history: Patient was seen and examined at the bedside. Doing ok. Objective - Vital Signs Vital signs: Vital Signs - 12hr 10/07/18 10/07/18 05:22 11:51 Temperature 98.5 F 97.8 F Pulse Rate 125 H 106 H Respiratory 18 20 Rate Blood Pressure 183/96 134/84 O2 Sat by Pulse 92 93 Oximetry - General Appearance General appearance: well-developed, well-nourished, appears stated age, obese, other (not in distress, right IJ tunnel catheter) EENT: ATNC, other (facial plethora noted) Neck: supple Respiratory: Present: Clear to Ascultation Cardiology: regular, S1S2, no murmurs Gastrointestinal: normoactive bowel sounds, no tenderness, obese Integumentary: no rash Neurologic: no focal deficit, no asterixis, alert and oriented x3 Musculoskeletal: other (2+ edema of both LEs noted) - Lab 10/06/18 06:22 10/05/18 06:50 Most recent lab results Calcium 7.3 mg/dL (8.4-10.2) L 10/05/18 06:50 Phosphorus 4.60 mg/dL (2.5-4.5) H 09/27/18 07:42 Magnesium 2.60 mg/dL (1.7-2.3) H 09/17/18 15:17 Urine Creatinine 97.5 mg/dL (0.1-20.0) H 09/21/18 07:00 Ur Total Protein 24 Hr 1073.50 mg/dL (2-200) H 09/18/18 10:30 Urine Sodium 53 mmol/L 09/21/18 07:00 Urine Total Protein 708 mg/dL (5-11.8) H 09/21/18 07:00 Medications & Allergies - Medications Allergies/Adverse Reactions: Allergies No Known Allergies Allergy (Unverified 09/17/18 15:05) Home Medications: Home Medications Medication Instructions Recorded Confirmed Last Taken Type Divalproex Sodium [Depakote] 500 mg PO BID 09/17/18 09/17/18 Unknown History Haldol (Nf) 10 mg PO QHS 09/17/18 10/06/18 Unknown History Invega Sustenna 156 mg IM QMONTH 09/17/18 10/06/18 Unknown History diphenhydrAMINE [Benadryl CAP] 50 mg PO HS 09/17/18 09/17/18 Unknown History Active Medications: Generic Name Dose Route Start Last Admin Trade Name Freq PRN Reason Stop Dose Admin Acetaminophen 650 mg 09/18/18 02:40 09/27/18 05:36 Tylenol PO 650 mg Q4H PRN Administration Pain MILD(1-3)/Fever >100.5/MENDOZA Atorvastatin Calcium 40 mg 09/18/18 22:00 10/06/18 21:36 Lipitor PO 40 mg QHS LUZ Administration Diphenhydramine HCl 50 mg 09/18/18 22:00 10/06/18 21:36 Benadryl PO 50 mg HS LUZ Administration Divalproex Sodium 500 mg 09/18/18 10:00 10/06/18 21:[address] PO 500 mg BID LUZ Administration Enoxaparin Sodium 30 mg 09/20/18 22:00 10/06/18 21:36 Lovenox SUB-Q 30 mg QDAY@2200 LUZ Administration Epoetin Luis 20,000 unit 09/26/18 12:23 10/04/18 22:40 Procrit SUB-Q 20,000 unit KUSHAL PRN Administration hemodialysis Furosemide 80 mg 09/29/18 06:00 10/07/18 05:22 Lasix PO 80 mg 0600,1800 LUZ Administration Haloperidol 5 mg 09/25/18 22:00 10/06/18 21:36 Haldol PO 5 mg HS LUZ Administration Hydralazine HCl 10 mg 09/22/18 06:28 09/22/18 12:12 Apresoline IV 10 mg Q4H PRN Administration systolic b/p >165 Hydralazine HCl 50 mg 09/22/18 14:00 10/07/18 05:22 Apresoline PO 50 mg Q8HR LUZ Administration Hydromorphone HCl 0.5 mg 09/18/18 02:40 Dilaudid IV Q3H PRN Pain , Severe (7-10) Sodium Chloride 100 mls @ 999 mls/hr 10/06/18 09:07 Nacl 0.9% IV KUSHAL PRN Hypotension Losartan Potassium 50 mg 10/04/18 10:00 10/06/18 09:35 Cozaar PO Not Given QDAY LUZ Ondansetron HCl 4 mg 09/18/18 02:40 10/07/18 03:15 Zofran IV 4 mg Q8H PRN Administration Nausea And Vomiting Oxycodone/Acetaminophen 1 tab 09/18/18 02:40 10/06/18 11:37 Percocet 5/325 PO 1 tab Q6H PRN Administration Pain, Moderate (4-6) Pantoprazole Sodium 40 mg 10/02/18 10:00 10/06/18 09:35 Protonix PO Not Given DAILY LUZ Sodium Chloride 10 ml 09/18/18 10:00 10/06/18 21:37 Sodium Chloride Flush Syringe 10 Ml IV 10 ml BID LUZ Administration Sodium Chloride 10 ml 09/18/18 02:40 Sodium Chloride Flush Syringe 10 Ml IV PRN PRN LINE FLUSH
--- NOTE | 2018-10-07 12:59 | Progress Note ---
Assessment and Plan Acute hypoxemic respiratory failure Sepsis secondary to left lower lobe PNA Extreme obesity Nephrotic syndrome Enterococcus UTI Renal failure on HD Nephrotic syndrome, refused renal biopsy Anemia - continue supplemental oxygen to keep O2 sat's > 90% - continue to monitor off antibiotics -nocturnal BIPAP and prn during the day - bronchodilators per protocol - weight loss counseled - now dialysis dependent; continue HD/UF per nephrology prescription - no active GI bleeding and was related to Radha Mendez tear - VTE w/up negative -influenza and pneumonia vaccination per protocol -out patient sleep study on discharge -weight loss and lifestyle modifications - continue other care per attending / other consultants With patient's schizophrenia she has limited insight into her medical problems and the need for adherence to therapies. Continues to intermittently refuse HD, and NIPPV at night. Continue all supportive care Discharge planning Subjective Date of service: 10/07/18 Principal diagnosis: coffee-ground emesis Interval history: follow up: Acute hypoxic respiratory failure: Abnormal CXR, Morbid obesity with probable STEFF Seen and examined. Vitals, labs, medications, chart and imaging reviewed. No acute overnight events, remains on supplemental oxygen. In consistently tolerating NIPPV No new overnight events Objective Vital Signs - 12hr 10/07/18 10/07/18 05:22 11:51 Temperature 98.5 F 97.8 F Pulse Rate 125 H 106 H Respiratory 18 20 Rate Blood Pressure 183/96 134/84 O2 Sat by Pulse 92 93 Oximetry Constitutional: no acute distress, alert Eyes: non-icteric ENT: oropharynx moist Neck: supple, no JVD Effort: mildly labored Ascultation: Bilateral: clear, diminished breath sounds Percussion: Bilateral: not dull Cardiovascular: regular rate and rhythm Gastrointestinal: normoactive bowel sounds, soft, non-tender Integumentary: normal Extremities: no cyanosis, no edema Neurologic: non-focal exam, pupils equal and round, CN II-XII normal Psychiatric: depressed CBC and BMP: 10/07/18 13:11 10/07/18 13:11 ABG, PT/INR, D-dimer: ABG POC ABG pH 7.434 (7.35-7.45) 10/05/18 18:03 POC ABG pCO2 43.4 (35-45) 10/05/18 18:03 POC ABG pO2 57 (80-105) L 10/05/18 18:03 POC ABG HCO3 29.0 (22-26 mml/L) 10/05/18 18:03 POC ABG Total CO2 30 (23-27mmol/L) 10/05/18 18:03 POC ABG O2 Sat 90 10/05/18 18:03 PT/INR, D-dimer PT 12.7 Sec. (12.2-14.9) 09/26/18 Unknown INR 0.90 (0.87-1.13) 09/26/18 Unknown Abnormal lab findings: Abnormal Labs 09/17/18 09/17/18 09/17/18 15:17 15:17 15:17 WBC RBC 3.34 L Hgb 9.1 L Hct 27.9 L MCH 27 L RDW 20.5 H Plt Count Lymph % (Auto) [place] % (Auto) 8.8 H [place] # Seg Neuts % (Manual) Monocytes % (Manual) Lymphocytes # (Manual) Monocytes # (Manual) APTT 22.2 L POC ABG pO2 Potassium Chloride 107.7 H BUN 37 H Creatinine 2.3 H Glucose Calcium 7.4 L Phosphorus Magnesium 2.60 H ALT Total Creatine Kinase NT-Pro-B Natriuret Pep 992.5 H Serum Total Protein Total Protein 4.1 L Albumin 1.3 L Gamma Globulins PEP Interpretation Urine WBC (Auto) Urine Creatinine Ur Creatinine 24 Hour Ur Total Protein 24 Hr Urine Total Protein Valproic Acid Crossmatch 09/17/18 09/18/18 09/18/18 17:18 05:22 05:22 WBC 4.4 L RBC 3.06 L Hgb 8.5 L Hct 25.5 L MCH RDW 20.0 H Plt Count Lymph % (Auto) 36.5 H [place] % (Auto) 12.3 H [place] # Seg Neuts % (Manual) Monocytes % (Manual) Lymphocytes # (Manual) Monocytes # (Manual) APTT POC ABG pO2 Potassium Chloride 107.2 H BUN 37 H Creatinine 2.2 H Glucose Calcium 7.4 L Phosphorus Magnesium ALT 6 L Total Creatine Kinase NT-Pro-B Natriuret Pep Serum Total Protein Total Protein 3.9 L Albumin 1.4 L Gamma Globulins PEP Interpretation Urine WBC (Auto) 15.0 H Urine Creatinine Ur Creatinine 24 Hour Ur Total Protein 24 Hr Urine Total Protein Valproic Acid Crossmatch 09/18/18 09/19/18 09/19/18 10:30 05:45 05:45 WBC RBC Hgb Hct MCH RDW Plt Count Lymph % (Auto) [place] % (Auto) [place] # Seg Neuts % (Manual) Monocytes % (Manual) Lymphocytes # (Manual) Monocytes # (Manual) APTT POC ABG pO2 Potassium Chloride BUN 37 H Creatinine 2.1 H Glucose Calcium 7.3 L Phosphorus Magnesium ALT Total Creatine Kinase NT-Pro-B Natriuret Pep Serum Total Protein 3.4 L Total Protein Albumin 1.2 L Gamma Globulins 0.5 L PEP Interpretation see below H Urine WBC (Auto) Urine Creatinine 147.5 H Ur Creatinine 24 Hour 0.7 L Ur Total Protein 24 Hr 1073.50 H Urine Total Protein 226 H Valproic Acid Crossmatch 09/20/18 09/20/18 09/21/18 04:56 15:15 06:13 WBC RBC 2.84 L Hgb 7.8 L Hct 24.1 L MCH 27 L RDW 19.8 H Plt Count Lymph % (Auto) [place] % (Auto) 12.9 H [place] # Seg Neuts % (Manual) Monocytes % (Manual) Lymphocytes # (Manual) Monocytes # (Manual) APTT POC ABG pO2 Potassium 5.4 H 5.5 H Chloride 108.2 H BUN 38 H Creatinine 2.4 H Glucose Calcium 7.2 L Phosphorus Magnesium ALT Total Creatine Kinase NT-Pro-B Natriuret Pep Serum Total Protein Total Protein Albumin Gamma Globulins PEP Interpretation Urine WBC (Auto) Urine Creatinine Ur Creatinine 24 Hour Ur Total Protein 24 Hr Urine Total Protein Valproic Acid Crossmatch 09/21/18 09/21/18 09/22/18 06:13 07:00 10:12 WBC RBC Hgb Hct MCH RDW Plt Count Lymph % (Auto) [place] % (Auto) [place] # Seg Neuts % (Manual) Monocytes % (Manual) Lymphocytes # (Manual) Monocytes # (Manual) APTT POC ABG pO2 Potassium 5.2 H Chloride 108.2 H 111.5 H BUN 39 H 40 H Creatinine 2.7 H 3.1 H Glucose Calcium 7.3 L 7.1 L Phosphorus Magnesium ALT Total Creatine Kinase NT-Pro-B Natriuret Pep Serum Total Protein Total Protein Albumin Gamma Globulins PEP Interpretation Urine WBC (Auto) Urine Creatinine 97.5 H Ur Creatinine 24 Hour Ur Total Protein 24 Hr Urine Total Protein 708 H Valproic Acid Crossmatch 09/23/18 09/25/18 09/25/18 04:40 07:30 07:30 WBC RBC 2.55 L Hgb 6.9 L Hct 21.5 L MCH 27 L RDW 19.5 H Plt Count Lymph % (Auto) [place] % (Auto) 12.2 H [place] # Seg Neuts % (Manual) Monocytes % (Manual) Lymphocytes # (Manual) Monocytes # (Manual) APTT POC ABG pO2 Potassium Chloride 109.1 H BUN 42 H 33 H Creatinine 3.8 H 4.4 H Glucose 102 H Calcium 7.2 L 7.3 L Phosphorus 5.00 H Magnesium ALT Total Creatine Kinase NT-Pro-B Natriuret Pep Serum Total Protein Total Protein Albumin Gamma Globulins PEP Interpretation Urine WBC (Auto) Urine Creatinine Ur Creatinine 24 Hour Ur Total Protein 24 Hr Urine Total Protein Valproic Acid Crossmatch 09/26/18 09/26/18 09/26/18 07:17 07:17 07:17 WBC RBC Hgb 6.7 L Hct 20.0 L MCH RDW Plt Count Lymph % (Auto) [place] % (Auto) [place] # Seg Neuts % (Manual) Monocytes % (Manual) Lymphocytes # (Manual) Monocytes # (Manual) APTT POC ABG pO2 Potassium Chloride BUN 24 H Creatinine 4.1 H Glucose Calcium 7.0 L Phosphorus Magnesium ALT Total Creatine Kinase 559 H NT-Pro-B Natriuret Pep Serum Total Protein Total Protein Albumin Gamma Globulins PEP Interpretation Urine WBC (Auto) Urine Creatinine Ur Creatinine 24 Hour Ur Total Protein 24 Hr Urine Total Protein Valproic Acid 13.2 L Crossmatch 09/26/18 09/27/18 09/27/18 Unknown 07:42 07:42 WBC RBC 2.16 L Hgb 6.0 L Hct 18.1 L* MCH RDW 18.9 H Plt Count 130 L Lymph % (Auto) [place] % (Auto) 15.8 H [place] # Seg Neuts % (Manual) Monocytes % (Manual) Lymphocytes # (Manual) Monocytes # (Manual) APTT 36.7 H POC ABG pO2 Potassium Chloride 108.4 H BUN 26 H Creatinine 4.8 H Glucose Calcium 7.1 L Phosphorus 4.60 H Magnesium ALT Total Creatine Kinase NT-Pro-B Natriuret Pep Serum Total Protein Total Protein Albumin Gamma Globulins PEP Interpretation Urine WBC (Auto) Urine Creatinine Ur Creatinine 24 Hour Ur Total Protein 24 Hr Urine Total Protein Valproic Acid Crossmatch 09/27/18 09/28/18 09/29/18 10:43 04:43 05:07 WBC RBC 3.29 L 3.28 L Hgb 8.9 L 8.9 L Hct 27.2 L D 27.1 L MCH 27 L 27 L RDW 19.3 H 19.3 H Plt Count 130 L 133 L Lymph % (Auto) [place] % (Auto) 15.6 H [place] # 0.9 H Seg Neuts % (Manual) Monocytes % (Manual) Lymphocytes # (Manual) Monocytes # (Manual) APTT POC ABG pO2 Potassium Chloride BUN Creatinine Glucose Calcium Phosphorus Magnesium ALT Total Creatine Kinase NT-Pro-B Natriuret Pep Serum Total Protein Total Protein Albumin Gamma Globulins PEP Interpretation Urine WBC (Auto) Urine Creatinine Ur Creatinine 24 Hour Ur Total Protein 24 Hr Urine Total Protein Valproic Acid Crossmatch See Detail 09/29/18 10/01/18 10/01/18 05:07 06:16 06:16 WBC RBC 3.18 L Hgb 8.6 L Hct 26.2 L MCH 27 L RDW 19.3 H Plt Count Lymph % (Auto) [place] % (Auto) [place] # Seg Neuts % (Manual) Monocytes % (Manual) Lymphocytes # (Manual) Monocytes # (Manual) APTT POC ABG pO2 Potassium Chloride BUN 22 H 22 H Creatinine 5.4 H 6.0 H Glucose Calcium 7.1 L 7.1 L Phosphorus Magnesium ALT Total Creatine Kinase NT-Pro-B Natriuret Pep Serum Total Protein Total Protein Albumin Gamma Globulins PEP Interpretation Urine WBC (Auto) Urine Creatinine Ur Creatinine 24 Hour Ur Total Protein 24 Hr Urine Total Protein Valproic Acid Crossmatch 10/05/18 10/05/18 10/05/18 06:50 06:50 18:03 WBC RBC 3.08 L Hgb 8.3 L Hct 25.6 L MCH 27 L RDW 19.0 H Plt Count Lymph % (Auto) [place] % (Auto) [place] # Seg Neuts % (Manual) Monocytes % (Manual) 11.0 H Lymphocytes # (Manual) 0.9 L Monocytes # (Manual) APTT POC ABG pO2 57 L Potassium Chloride BUN Creatinine 4.9 H Glucose Calcium 7.3 L Phosphorus Magnesium ALT Total Creatine Kinase NT-Pro-B Natriuret Pep Serum Total Protein Total Protein 4.1 L Albumin 1.5 L Gamma Globulins PEP Interpretation Urine WBC (Auto) Urine Creatinine Ur Creatinine 24 Hour Ur Total Protein 24 Hr Urine Total Protein Valproic Acid Crossmatch 10/06/18 06:22 WBC RBC 3.04 L Hgb 8.1 L Hct 25.2 L MCH 27 L RDW 19.2 H Plt Count Lymph % (Auto) [place] % (Auto) [place] # Seg Neuts % (Manual) 71.0 H Monocytes % (Manual) 14.0 H Lymphocytes # (Manual) 1.0 L Monocytes # (Manual) 1.0 H APTT POC ABG pO2 Potassium Chloride BUN Creatinine Glucose Calcium Phosphorus Magnesium ALT Total Creatine Kinase NT-Pro-B Natriuret Pep Serum Total Protein Total Protein Albumin Gamma Globulins PEP Interpretation Urine WBC (Auto) Urine Creatinine Ur Creatinine 24 Hour Ur Total Protein 24 Hr Urine Total Protein Valproic Acid Crossmatch Allied health notes reviewed: nursing
[2018-10-07] MEDS: PROTONIX PO SCH ×2 (13:02→13:04)
[2018-10-07] MEDS: COZAAR PO SCH (13:03)
[2018-10-07] MEDS: SODIUM CHLORIDE FLUSH SYRINGE 10 ML IV SCH ×2 (13:05→22:22)
[2018-10-07] MEDS: LOPRESSOR PO SCH ×2 (13:11→22:21)
--- NOTE | 2018-10-07 13:38 | Progress Note ---
Assessment and Plan Assessment and plan: Patient is a 47 yo woman with a history of Obesity, HTN and Schizophrenia who presented to the ER with bilateral leg swelling, SOB and increase in the abdominal girth and weight gain of ~86 pounds in 10 weeks. Patient denies any h/o heart disease or Liver problem. Labs were significant for creatinine of 2.2, Hb 8.5, albumin 1.4 and 3+ protein in the urine. Patient was admitted with provisional diagnosis of Nephrotic syndrome. Nephrology was consulted for further evaluation and recommended Kidney biopsy; which patient refused on multiple occasions so Radiology declined to re-schedule the procedure. Also, During hospital coarse, she was found to have coffee ground emesis and EGD was done on 09/26/18 and showed M-W tear. Her hemoglobin was steadily dropping and she initially refused blood transfusion until Mr. Galeas convinced her to get the blood transfusion and do Hemodialysis which she refuses at times. - Acute kidney injury with ckd and nephrotic syndrome. Commenced hemodialysis on 09/24/2018 Patient intermittently still refuses hemodialysis on some days -Nephrotic syndrome. 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 Patient refused several times to do Kidney biospy. will revisit Additional IV dose of Lasix given. - VRE UTI: Possible cystitis. ID recommended treating patient with amoxicillin for 3 days that banding on 09/06/18 -Coffee-ground emesis with Radha Mendez Tear. Status post EGD that showed gastritis and hiatal hernia No more active bleeding -Acute on chronic Blood loss anemia due to above -Medical non-compliance: Counseling provided but doubts patient's comprehension -Hypertensive urgency: Improved -Severe protein calorie malnutrition: Consult placed for Configuration Management Advisor. =Right lower extremity thigh pain. Doppler lower extremities bilaterally negative for DVT =Left breast swelling, unknown at present. Need outpatient Mammogram and U/S =Morbid obesity, bmi 55.2: lifestyle modification. BIPAP recommended but refuses =Medical noncompliance. Patient intermittently at times refusing care. Psych/Mik told me she has decision making capacity. =Schizophrenia, Bipolar disorder. Continue current medications.. As above. Psych consulted =Hyperkalemia. Kayexalate. Recheck BMP in the morning. =Sepsis. Maybe from UTI as chest x-ray shows no evidence of pneumonia. Present on admission. Treated with IV antibiotics discontinued. Etiology secondary to pneumonia and UTI. DVT/GI propy Disposition is problematic in this case. We are unable to get outpatient dialysis per case management due to diagnosis of LUCILA. Also the patient is refusing Biopsy which will help with the decision making, Refusing BIPAP ALSO. Will likely need ETHICS CONSULT. Poor prognosis based on patients refusal of care History Interval history: Patient seen and examined, intermittently refusing medication auscultation nurses to come back under different time. Otherwise blood pressure initially elevated but not improved. Hospitalist Physical - Physical exam Narrative exam: Constitutional: Generalized swelling. anasacar Head: Normocephalic atraumatic Eyes: Pupils are equal round and reactive to light Nose: No enlarged turbinates, no septal deviation. Mouth: Moist mucous membranes. Neck: Supple no thyromegaly. No bruit. No JVD Heart: Regular rate and rhythm, S1-S2 normal. No rubs murmurs or gallop Lungs: Diminished to auscultation bilaterally. no rales or rhonchi Abdomen: Soft, nontender. Bowel sound are present. Edematous Extremities: 2+ edema, no cyanosis, no clubbing. Neuro: Alert oriented Oriented x3. No focal sensory or motor deficit. Skin: No rashes or hyperpigmented spots Musculoskeletal system: No joint pain or swelling Hematological: No petechia or subcutanous hemorrhages. Lymphatic: No generalized lymphadenopathy Psychiatry: Euthymic. Calm. - Constitutional Vitals: Temp Pulse Resp BP Pulse Ox 97.8 F 106 H 20 134/84 93 10/07/18 11:51 10/07/18 11:51 10/07/18 11:51 10/07/18 11:51 10/07/18 11:51 General appearance: Present: no acute distress, obese Results - Labs CBC & Chem 7: 10/06/18 06:22 10/05/18 06:50 Labs: Laboratory Last Values WBC 6.8 K/mm3 (4.5-11.0) 10/06/18 06:22 RBC 3.04 M/mm3 (3.65-5.03) L 10/06/18 06:22 Hgb 8.1 gm/dl (10.1-14.3) L 10/06/18 06:22 Hct 25.2 % (30.3-42.9) L 10/06/18 06:22 MCV 83 fl (79-97) 10/06/18 06:22 MCH 27 pg (28-32) L 10/06/18 06:22 MCHC 32 % (30-34) 10/06/18 06:22 RDW 19.2 % (13.2-15.2) H 10/06/18 06:22 Plt Count 156 K/mm3 (140-440) 10/06/18 06:22 Lymph % (Auto) 24.2 % (13.4-35.0) 09/29/18 05:07 [place] % (Auto) Recooperer 10/06/18 06:22 Eos % (Auto) 1.7 % (0.0-4.3) 09/29/18 05:07 Baso % (Auto) 0.3 % (0.0-1.8) 09/29/18 05:07 Lymph # 1.4 K/mm3 (1.2-5.4) 09/29/18 05:07 [place] # 0.9 K/mm3 (0.0-0.8) H 09/29/18 05:07 Eos # 0.1 K/mm3 (0.0-0.4) 09/29/18 05:07 Baso # 0.0 K/mm3 (0.0-0.1) 09/29/18 05:07 Add Manual Diff Complete 10/06/18 06:22 Total Counted 100 10/06/18 06:22 Seg Neutrophils % 58.2 % (40.0-70.0) 09/29/18 05:07 Seg Neuts % (Manual) 71.0 % (40.0-70.0) H 10/06/18 06:22 Band Neutrophils % 0 % 10/06/18 06:22 Lymphocytes % (Manual) 14.0 % (13.4-35.0) 10/06/18 06:22 Reactive Lymphs % (Man) 0 % 10/06/18 06:22 Monocytes % (Manual) 14.0 % (0.0-7.3) H 10/06/18 06:22 Eosinophils % (Manual) 1.0 % (0.0-4.3) 10/06/18 06:22 Basophils % (Manual) 0 % (0.0-1.8) 10/06/18 06:22 Metamyelocytes % 0 % 10/06/18 06:22 Myelocytes % 0 % 10/06/18 06:22 Promyelocytes % 0 % 10/06/18 06:22 Blast Cells % 0 % 10/06/18 06:22 Nucleated RBC % Not Reportable 10/06/18 06:22 Seg Neutrophils # 3.5 K/mm3 (1.8-7.7) 09/29/18 05:07 Seg Neutrophils # Man 4.8 K/mm3 (1.8-7.7) 10/06/18 06:22 Band Neutrophils # 0.0 K/mm3 10/06/18 06:22 Lymphocytes # (Manual) 1.0 K/mm3 (1.2-5.4) L 10/06/18 06:22 Abs React Lymphs (Man) 0.0 K/mm3 10/06/18 06:22 Monocytes # (Manual) 1.0 K/mm3 (0.0-0.8) H 10/06/18 06:22 Eosinophils # (Manual) 0.1 K/mm3 (0.0-0.4) 10/06/18 06:22 Basophils # (Manual) 0.0 K/mm3 (0.0-0.1) 10/06/18 06:22 Metamyelocytes # 0.0 K/mm3 10/06/18 06:22 Myelocytes # 0.0 K/mm3 10/06/18 06:22 Promyelocytes # 0.0 K/mm3 10/06/18 06:22 Blast Cells # 0.0 K/mm3 10/06/18 06:22 WBC Morphology Not Reportable 10/06/18 06:22 Hypersegmented Neuts Not Reportable 10/06/18 06:22 Hyposegmented Neuts Not Reportable 10/06/18 06:22 Hypogranular Neuts Not Reportable 10/06/18 06:22 Smudge Cells Not Reportable 10/06/18 06:22 Toxic Granulation Not Reportable 10/06/18 06:22 Toxic Vacuolation Not Reportable 10/06/18 06:22 Dohle Bodies Not Reportable 10/06/18 06:22 Pelger-Huet Anomaly Not Reportable 10/06/18 06:22 Latasha Rods Not Reportable 10/06/18 06:22 Platelet Estimate Consistent w auto 10/06/18 06:22 Clumped Platelets Not Reportable 10/06/18 06:22 Plt Clumps, EDTA Not Reportable 10/06/18 06:22 Large Platelets Not Reportable 10/06/18 06:22 Giant Platelets Not Reportable 10/06/18 06:22 Platelet Satelliting Not Reportable 10/06/18 06:22 Plt Morphology Comment Not Reportable 10/06/18 06:22 RBC Morphology Not Reportable 10/06/18 06:22 Dimorphic RBCs Not Reportable 10/06/18 06:22 Polychromasia Not Reportable 10/06/18 06:22 Hypochromasia Few 10/06/18 06:22 Poikilocytosis Not Reportable 10/06/18 06:22 Anisocytosis Not Reportable 10/06/18 06:22 Microcytosis Not Reportable 10/06/18 06:22 Macrocytosis Not Reportable 10/06/18 06:22 Spherocytes Not Reportable 10/06/18 06:22 Pappenheimer Bodies Not Reportable 10/06/18 06:22 Sickle Cells Not Reportable 10/06/18 06:22 Target Cells Not Reportable 10/06/18 06:22 Tear Drop Cells Not Reportable 10/06/18 06:22 Ovalocytes Few 10/06/18 06:22 Helmet Cells Not Reportable 10/06/18 06:22 [place] Bodies Not Reportable 10/06/18 06:22 Brandon Rings Not Reportable 10/06/18 06:22 [place] Cells Not Reportable 10/06/18 06:22 Bite Cells Not Reportable 10/06/18 06:22 Crenated Cell Not Reportable 10/06/18 06:22 Elliptocytes Not Reportable 10/06/18 06:22 Acanthocytes (Spur) Not Reportable 10/06/18 06:22 Rouleaux Not Reportable 10/06/18 06:22 Hemoglobin C Crystals Not Reportable 10/06/18 06:22 Schistocytes Not Reportable 10/06/18 06:22 Malaria parasites Not Reportable 10/06/18 06:22 Paul Bodies Not Reportable 10/06/18 06:22 Hem Pathologist Commnt No 10/06/18 06:22 PT 12.7 Sec. (12.2-14.9) 09/26/18 Unknown INR 0.90 (0.87-1.13) 09/26/18 Unknown APTT 36.7 Sec. (24.2-36.6) H 09/26/18 Unknown POC ABG pH 7.434 (7.35-7.45) 10/05/18 18:03 POC ABG pCO2 43.4 (35-45) 10/05/18 18:03 POC ABG pO2 57 (80-105) L 10/05/18 18:03 POC ABG HCO3 29.0 (22-26 mml/L) 10/05/18 18:03 POC ABG Total CO2 30 (23-27mmol/L) 10/05/18 18:03 POC ABG O2 Sat 90 10/05/18 18:03 POC ABG Base Excess 5 ((-2) - (+3)mmol/L) 10/05/18 18:03 FiO2 21 % 10/05/18 18:03 Sodium 142 mmol/L (137-145) 10/05/18 06:50 Potassium 4.3 mmol/L (3.6-5.0) 10/05/18 06:50 Chloride 105.1 mmol/L (98-107) 10/05/18 06:50 Carbon Dioxide 29 mmol/L (22-30) 10/05/18 06:50 Anion Gap 12 mmol/L 10/05/18 06:50 BUN 16 mg/dL (7-17) 10/05/18 06:50 Creatinine 4.9 mg/dL (0.7-1.2) H 10/05/18 06:50 Estimated GFR 12 ml/min 10/05/18 06:50 BUN/Creatinine Ratio 3 % 10/05/18 06:50 Glucose 85 mg/dL (65-100) 10/05/18 06:50 Calcium 7.3 mg/dL (8.4-10.2) L 10/05/18 06:50 Phosphorus 4.60 mg/dL (2.5-4.5) H 09/27/18 07:42 Magnesium 2.60 mg/dL (1.7-2.3) H 09/17/18 15:17 Total Bilirubin < 0.20 mg/dL (0.1-1.2) 10/05/18 06:50 AST 14 units/L (5-40) 10/05/18 06:50 ALT 7 units/L (7-56) 10/05/18 06:50 Alkaline Phosphatase 52 units/L (35-129) 10/05/18 06:50 Total Creatine Kinase 559 units/L (30-135) H 09/26/18 07:17 Troponin T 0.012 ng/mL (0.00-0.029) 09/17/18 15:17 NT-Pro-B Natriuret Pep 992.5 pg/mL (0-450) H 09/17/18 15:17 Serum Total Protein 3.4 g/dL (6.1-8.1) L 09/19/18 05:45 Total Protein 4.1 g/dL (6.3-8.2) L 10/05/18 06:50 Albumin 1.5 g/dL (3.9-5) L 10/05/18 06:50 Albumin/Globulin Ratio 0.6 % 10/05/18 06:50 Syecu-8-Vqbalamoy 0.3 g/dL (0.2-0.3) 09/19/18 05:45 Yvljz-3-Kxmcmfjkl 0.8 g/dL (0.5-0.9) 09/19/18 05:45 Beta Globulins 0.4 g/dL (0.2-0.5) 09/19/18 05:45 Gamma Globulins 0.5 g/dL (0.8-1.7) L 09/19/18 05:45 Abnorm Protein Band 1 see below 09/19/18 05:45 PEP Interpretation see below H 09/19/18 05:45 Amylase 53 units/L (27-131) 09/25/18 13:53 Lipase 48 units/L (13-60) 09/25/18 13:53 HCG, Qual Negative (Negative) 09/25/18 13:53 PTH Intact 46.07 pg/mL (15-65) 09/19/18 05:45 Urine Color Yellow (Yellow) 09/17/18 17:18 Urine Turbidity Cloudy (Clear) 09/17/18 17:18 Urine pH 5.0 (5.0-7.0) 09/17/18 17:18 Ur Specific [place] 1.029 (1.003-1.030) 09/17/18 17:18 Urine Protein >500 mg/dL (Negative) 09/17/18 17:18 Urine Glucose (UA) Neg mg/dL (Negative) 09/17/18 17:18 Urine Ketones Tr mg/dL (Negative) 09/17/18 17:18 Urine Blood Sm (Negative) 09/17/18 17:18 Urine Nitrite Neg (Negative) 09/17/18 17:18 Urine Bilirubin Neg (Negative) 09/17/18 17:18 Urine Urobilinogen < 2.0 mg/dL (<2.0) 09/17/18 17:18 Ur Leukocyte Esterase Neg (Negative) 09/17/18 17:18 Urine WBC (Auto) 15.0 /HPF (0.0-6.0) H 09/17/18 17:18 Urine RBC (Auto) 13.0 /HPF (0.0-6.0) 09/17/18 17:18 U Epithel Cells (Auto) 6.0 /HPF (0-13.0) 09/17/18 17:18 Urine Bacteria (Auto) 2+ /HPF (Negative) 09/17/18 17:18 Urine WBC Clumps 2+ /HPF 09/17/18 17:18 Hyaline Casts 6 /LPF 09/17/18 17:18 Urine Mucus Few /HPF 09/17/18 17:18 Urine Yeast (Budding) 2+ /HPF 09/17/18 17:18 Urine Eosinophils None seen (None Seen) 09/18/18 10:30 Urine Total Volume 475 ml 09/18/18 10:30 Urine Creatinine 97.5 mg/dL (0.1-20.0) H 09/21/18 07:00 Ur Creatinine 24 Hour 0.7 (0.8-2.8) L 09/18/18 10:30 Ur Total Protein 24 Hr 1073.50 mg/dL (2-200) H 09/18/18 10:30 Protein/Creatinin Ratio 7.26 09/21/18 07:00 Urine Sodium 53 mmol/L 09/21/18 07:00 Urine Urea Nitrogen 467 09/18/18 10:30 Ur Urea Nitrogen 24 Hr 2.22 09/18/18 10:30 Urine Total Protein 708 mg/dL (5-11.8) H 09/21/18 07:00 Urine Opiates Screen Presumptive negative 09/17/18 17:18 Urine Methadone Screen Presumptive negative 09/17/18 17:18 Ur Barbiturates Screen Presumptive negative 09/17/18 17:18 Valproic Acid 13.2 ug/mL (50-100) L 09/26/18 07:17 Ur Phencyclidine Scrn Presumptive negative 09/17/18 17:18 Ur Amphetamines Screen Presumptive negative 09/17/18 17:18 U Benzodiazepines Scrn Presumptive negative 09/17/18 17:18 Urine Cocaine Screen Presumptive negative 09/17/18 17:18 U Marijuana (THC) Screen Presumptive negative 09/17/18 17:18 Drugs of Abuse Note Disclamer 09/17/18 17:18 BI Screen Negative (Negative) 09/19/18 05:45 Proteinase 3 (PR3) Ab <1.0 AI (<1.0) 09/19/18 05:45 Myeloperoxidase Ab <1.0 AI (<1.0) 09/19/18 05:45 Glomerular Base Mem IgG See scanned result 09/19/18 05:45 Complement C3 143 mg/dL (83-193) 09/19/18 05:45 Complement C4 56 mg/dL (15-57) 09/19/18 05:45 Hepatitis A IgM Ab Non-reactive (NonReactive) 09/19/18 05:45 Hep Bs Antigen Non-reactive (Negative) 09/19/18 05:45 Hep B Core IgM Ab Non-reactive (NonReactive) 09/19/18 05:45 Hepatitis C Antibody Non-reactive (NonReactive) 09/19/18 05:45 HIV 1&2 Antibody Rapid Non react (Non React) 09/27/18 07:42 HIV P24 Antigen Non react (Non React) 09/27/18 07:42 Blood Type O POSITIVE 09/27/18 10:43 Antibody Screen Negative 09/27/18 10:43 Crossmatch See Detail 09/27/18 10:43 Active Medications - Current Medications Current Medications: Generic Name Dose Route Start Last Admin Trade Name Freq PRN Reason Stop Dose Admin Acetaminophen 650 mg 09/18/18 02:40 09/27/18 05:36 Tylenol PO 650 mg Q4H PRN Administration Pain MILD(1-3)/Fever >100.5/MENDOZA Atorvastatin Calcium 40 mg 09/18/18 22:00 10/06/18 21:36 Lipitor PO 40 mg QHS LUZ Administration Diphenhydramine HCl 50 mg 09/18/18 22:00 10/06/18 21:36 Benadryl PO 50 mg HS LUZ Administration Divalproex Sodium 500 mg 09/18/18 10:00 10/07/18 13:[address] PO 500 mg BID LUZ Administration Enoxaparin Sodium 30 mg 09/20/18 22:00 10/06/18 21:36 Lovenox SUB-Q 30 mg QDAY@2200 LUZ Administration Epoetin Luis 20,000 unit 09/26/18 12:23 10/04/18 22:40 Procrit SUB-Q 20,000 unit KUSHAL PRN Administration hemodialysis Furosemide 80 mg 09/29/18 06:00 10/07/18 05:22 Lasix PO 80 mg 0600,1800 LUZ Administration Haloperidol 5 mg 09/25/18 22:00 10/06/18 21:36 Haldol PO 5 mg HS LUZ Administration Hydralazine HCl 10 mg 09/22/18 06:28 09/22/18 12:12 Apresoline IV 10 mg Q4H PRN Administration systolic b/p >165 Hydromorphone HCl 0.5 mg 09/18/18 02:40 Dilaudid IV Q3H PRN Pain , Severe (7-10) Sodium Chloride 100 mls @ 999 mls/hr 10/06/18 09:07 Nacl 0.9% IV KUSHAL PRN Hypotension Losartan Potassium 50 mg 10/04/18 10:00 10/07/18 13:03 Cozaar PO Not Given QDAY [facility] Metoprolol Tartrate 50 mg 10/07/18 13:00 10/07/18 13:11 Lopressor PO 50 mg BID [facility] Administration Ondansetron HCl 4 mg 09/18/18 02:40 10/07/18 03:15 Zofran IV 4 mg Q8H PRN Administration Nausea And Vomiting Oxycodone/Acetaminophen 1 tab 09/18/18 02:40 10/06/18 11:37 Percocet 5/325 PO 1 tab Q6H PRN Administration Pain, Moderate (4-6) Pantoprazole Sodium 40 mg 10/02/18 10:00 10/07/18 13:04 Protonix PO Not Given DAILY [facility] Sodium Chloride 10 ml 09/18/18 10:00 10/07/18 13:05 Sodium Chloride Flush Syringe 10 Ml IV 10 ml BID LUZ Administration Sodium Chloride 10 ml 09/18/18 02:40 Sodium Chloride Flush Syringe 10 Ml IV PRN PRN LINE FLUSH Nutrition/Malnutrition Assess - Dietary Evaluation Nutrition/Malnutrition Findings: Nutrition Notes Start: 09/24/18 15:36 Freq: Status: Active Protocol: Document 10/05/18 14:16 RD (Rec: 10/05/18 14:35 RD [email or web address]) Co-Sign 10/05/18 14:16 OL Nutrition Notes Need for Assessment generated from: MD Order Initial or Follow up Brief Note Current Diagnosis Sepsis,Respiratory Failure Other Pertinent Diagnosis renal failure on HD, nephrotic syndrome, anemia Current Diet GI soft Labs/Tests Albumin 1.5 Subjective/Other Information RD consulted for malnutrition risk. Pt asleep at time of visit. Nutrition Intervention Follow-Up By: 10/08/18 Additional Comments f/u: assessment needs
[2018-10-07 14:15] LABS: Mean Corpuscular HGB Conc 32 % (30-34); Mean Corpuscular Volume 84 fl (79-97); Platelet Count 154 K/mm3 (140-440); Red Blood Count 3.36 M/mm3 (3.65-5.03)
[2018-10-07 14:22] LABS: Calcium 7.4 mg/dL (8.4-10.2)
[2018-10-07 15:47] LABS: Band Neutrophils # (Manual) 0.1 K/mm3; Basophils % (Manual) 0 % (0.0-1.8); Eosinophils % (Manual) 0 % (0.0-4.3); Myelocytes # (Manual) 0.1 K/mm3; Platelet Estimate Consistent w Auto; Total Cells Counted 100
[2018-10-07] MEDS: HALDOL PO SCH (22:20)
[2018-10-07] MEDS: LOVENOX SUB-Q SCH (22:20)
[2018-10-07] MEDS: BENADRYL PO SCH (22:21)
[2018-10-08] MEDS: LASIX PO SCH ×2 (05:29→18:51)
[2018-10-08] MEDS ORDERED: NACL 0.9% 100 ML IV PRN (09:00)
--- NOTE | 2018-10-08 09:28 | Progress Note ---
Assessment and Plan 1. Acute kidney injury superimposed on CKD: LUCILA likely related Nephrotic syndrome. Chronicity of the CKD or LUCILA is unknown. Doubt if there is going to be any renal recovery. Suspect ESRD and need for alf hemodialysis. Patient was started on hemodialysis on 09/24/2018 due to worsening renal function, anasarca and suspected pulmonary edema. Last dialyzed 2 days ago. Patient has been refusing HD / Isolated UF intermittently. Today she agreed to go for hemodialysis. Next HD today. Renal prognosis appears to be poor at this time. 2. Nephrotic syndrome: Possible causes include but not limited to FSGS, Minimal change, Membranous and Lupus nephritis. Complements, BI, ANCA, SPEP, GBM Ab, Hepatitis panel and HIV are negative. Unable to give definitive treatment due to lack of pathological diagnosis. Made several attempts to do Kidney biospy but she refused. Today she refused for kidney biopsy to me but said yes to . Will try to do kidney biopsy one more time tomorrow. Patient is on Lovenox to prevent DVT. Continue ARB and Statin. 3. FEN: Volume overload, UF with HD. On Lasix. Hyperkalemia, improved. 4. VRE bacteriuria. 5. HTN: Monitor BP. 6. Anemia: GI bleed. S/p PRBC. Epogen with HD. 7. Schizophrenia. 8. Medical non-compliance. Subjective Date of service: 10/08/18 Principal diagnosis: coffee-ground emesis Interval history: Patient was seen and examined at the bedside. Doing ok. Objective - Vital Signs Vital signs: Vital Signs - 12hr 10/07/18 10/07/18 10/07/18 22:00 22:04 22:21 Temperature Pulse Rate 112 H 89 Respiratory 18 Rate Blood Pressure 126/79 O2 Sat by Pulse 95 95 Oximetry 10/07/18 10/08/18 10/08/18 23:20 05:17 09:12 Temperature 98.0 F 99.0 F Pulse Rate 87 78 Respiratory 18 18 Rate Blood Pressure 139/73 129/69 O2 Sat by Pulse 91 93 94 Oximetry - General Appearance General appearance: well-developed, well-nourished, appears stated age, obese, other (not in distress, right IJ tunnel catheter) EENT: ATNC, PERRL, other (facial plethora noted) Neck: supple Respiratory: Present: Clear to Ascultation Cardiology: regular, S1S2, no murmurs Gastrointestinal: normoactive bowel sounds, no tenderness, obese Integumentary: warm and dry Neurologic: no focal deficit, no asterixis, alert and oriented x3 Musculoskeletal: other (2+ edema noted) - Lab 10/07/18 13:11 10/07/18 13:11 Most recent lab results Calcium 7.4 mg/dL (8.4-10.2) L 10/07/18 13:11 Phosphorus 4.60 mg/dL (2.5-4.5) H 09/27/18 07:42 Magnesium 2.60 mg/dL (1.7-2.3) H 09/17/18 15:17 Urine Creatinine 97.5 mg/dL (0.1-20.0) H 09/21/18 07:00 Ur Total Protein 24 Hr 1073.50 mg/dL (2-200) H 09/18/18 10:30 Urine Sodium 53 mmol/L 09/21/18 07:00 Urine Total Protein 708 mg/dL (5-11.8) H 09/21/18 07:00 Medications & Allergies - Medications Allergies/Adverse Reactions: Allergies No Known Allergies Allergy (Unverified 09/17/18 15:05) Home Medications: Home Medications Medication Instructions Recorded Confirmed Last Taken Type Divalproex Sodium [Depakote] 500 mg PO BID 09/17/18 09/17/18 Unknown History Haldol (Nf) 10 mg PO QHS 09/17/18 10/06/18 Unknown History Invega Sustenna 156 mg IM QMONTH 09/17/18 10/06/18 Unknown History diphenhydrAMINE [Benadryl CAP] 50 mg PO HS 09/17/18 09/17/18 Unknown History Active Medications: Generic Name Dose Route Start Last Admin Trade Name Freq PRN Reason Stop Dose Admin Acetaminophen 650 mg 09/18/18 02:40 09/27/18 05:36 Tylenol PO 650 mg Q4H PRN Administration Pain MILD(1-3)/Fever >100.5/MENDOZA Atorvastatin Calcium 40 mg 09/18/18 22:00 10/07/18 22:21 Lipitor PO 40 mg QHS LUZ Administration Diphenhydramine HCl 50 mg 09/18/18 22:00 10/07/18 22:21 Benadryl PO 50 mg HS LUZ Administration Divalproex Sodium 500 mg 09/18/18 10:00 10/07/18 22:[address] PO 500 mg BID LUZ Administration Enoxaparin Sodium 30 mg 09/20/18 22:00 10/07/18 22:20 Lovenox SUB-Q 30 mg QDAY@2200 LUZ Administration Epoetin Luis 20,000 unit 09/26/18 12:23 10/04/18 22:40 Procrit SUB-Q 20,000 unit KUSHAL PRN Administration hemodialysis Furosemide 80 mg 09/29/18 06:00 10/08/18 05:29 Lasix PO 80 mg 0600,1800 LUZ Administration Haloperidol 5 mg 09/25/18 22:00 10/07/18 22:20 Haldol PO 5 mg HS LUZ Administration Hydralazine HCl 10 mg 09/22/18 06:28 09/22/18 12:12 Apresoline IV 10 mg Q4H PRN Administration systolic b/p >165 Hydromorphone HCl 0.5 mg 09/18/18 02:40 Dilaudid IV Q3H PRN Pain , Severe (7-10) Sodium Chloride 100 mls @ 999 mls/hr 10/08/18 09:00 Nacl 0.9% IV KUSHAL PRN Hypotension Losartan Potassium 50 mg 10/04/18 10:00 10/07/18 13:03 Cozaar PO Not Given QDAY [facility] Metoprolol Tartrate 50 mg 10/07/18 13:00 10/07/18 22:21 Lopressor PO 50 mg BID LUZ Administration Ondansetron HCl 4 mg 09/18/18 02:40 10/07/18 03:15 Zofran IV 4 mg Q8H PRN Administration Nausea And Vomiting Oxycodone/Acetaminophen 1 tab 09/18/18 02:40 10/06/18 11:37 Percocet 5/325 PO 1 tab Q6H PRN Administration Pain, Moderate (4-6) Pantoprazole Sodium 40 mg 10/02/18 10:00 10/07/18 13:04 Protonix PO Not Given DAILY LUZ Sodium Chloride 10 ml 09/18/18 10:00 10/07/18 22:22 Sodium Chloride Flush Syringe 10 Ml IV 10 ml BID LUZ Administration Sodium Chloride 10 ml 09/18/18 02:40 Sodium Chloride Flush Syringe 10 Ml IV PRN PRN LINE FLUSH
[2018-10-08] MEDS: PROTONIX PO SCH (10:08)
[2018-10-08] MEDS: SODIUM CHLORIDE FLUSH SYRINGE 10 ML IV SCH ×2 (10:08→22:06)
--- NOTE | 2018-10-08 13:08 | Progress Note ---
Assessment and Plan Acute hypoxemic respiratory failure Sepsis secondary to left lower lobe PNA Extreme obesity Nephrotic syndrome Enterococcus UTI Renal failure on HD Nephrotic syndrome Anemia - continue supplemental oxygen to keep O2 sat's > 90% (advised to keep it on especially while asleep) - repeat CXR re: pneumonia vs pulmonary edema - strongly counseled using BIPAP qhs for clinical STEFF S&S (fell asleep during my conversation) - repeat ABG and address as necessary - continue gentle diuresis for volume control - prn albuterol ordered - weight loss counseled - now dialysis dependent; continue HD/UF per nephrology prescription - no active GI bleeding and was related to Radha Mendez tear - VTE w/up negative - continue other care per attending / other consultants .... re-evaluate in am & prn Subjective Date of service: 10/08/18 Principal diagnosis: Acute hypoxemic resp failure; Sepsis 2/2 LLL Pneumonia; Extreme obesity Interval history: Patient is seen today for: Acute hypoxemic respiratory failure; Sepsis secondary to left lower lobe PNA; Extreme obesity; Nephrotic syndrome; Enterococcus UTI Seen and examined at bedside; 24hour events reviewed; nursing and respiratory care staff consulted; no adverse overnight events reported to me; resting peacefully in bed; Objective Vital Signs - 12hr 10/08/18 10/08/18 10/08/18 05:17 09:12 10:30 Temperature 99.0 F 97.8 F Pulse Rate 78 89 Respiratory 18 18 Rate Blood Pressure 129/69 146/84 O2 Sat by Pulse 93 94 Oximetry 10/08/18 10/08/18 10/08/18 10:35 10:45 11:00 Temperature Pulse Rate 78 104 H 78 Respiratory Rate Blood Pressure 157/84 181/100 144/81 O2 Sat by Pulse Oximetry 10/08/18 10/08/18 10/08/18 11:15 11:30 11:45 Temperature Pulse Rate 70 72 72 Respiratory Rate Blood Pressure 124/66 133/62 125/65 O2 Sat by Pulse Oximetry 10/08/18 10/08/18 10/08/18 12:00 12:15 12:30 Temperature Pulse Rate 76 78 86 Respiratory Rate Blood Pressure 140/75 161/90 155/71 O2 Sat by Pulse Oximetry Constitutional: no acute distress, alert Eyes: non-icteric ENT: oropharynx moist Neck: supple, no JVD Effort: mildly labored Ascultation: Bilateral: clear, diminished breath sounds Percussion: Bilateral: not dull Cardiovascular: regular rate and rhythm Gastrointestinal: normoactive bowel sounds, soft, non-tender Integumentary: normal Extremities: no cyanosis, no edema Neurologic: non-focal exam, pupils equal and round, CN II-XII normal Psychiatric: depressed CBC and BMP: 10/07/18 13:11 10/07/18 13:11 ABG, PT/INR, D-dimer: ABG POC ABG pH 7.434 (7.35-7.45) 10/05/18 18:03 POC ABG pCO2 43.4 (35-45) 10/05/18 18:03 POC ABG pO2 57 (80-105) L 10/05/18 18:03 POC ABG HCO3 29.0 (22-26 mml/L) 10/05/18 18:03 POC ABG Total CO2 30 (23-27mmol/L) 10/05/18 18:03 POC ABG O2 Sat 90 10/05/18 18:03 PT/INR, D-dimer PT 12.7 Sec. (12.2-14.9) 09/26/18 Unknown INR 0.90 (0.87-1.13) 09/26/18 Unknown Abnormal lab findings: Abnormal Labs 09/17/18 09/17/18 09/17/18 15:17 15:17 15:17 WBC RBC 3.34 L Hgb 9.1 L Hct 27.9 L MCH 27 L RDW 20.5 H Plt Count Lymph % (Auto) Henderson % (Auto) 8.8 H Henderson # Seg Neuts % (Manual) Lymphocytes % (Manual) Monocytes % (Manual) Nucleated RBC % Lymphocytes # (Manual) Monocytes # (Manual) APTT 22.2 L POC ABG pO2 Potassium Chloride 107.7 H BUN 37 H Creatinine 2.3 H Glucose Calcium 7.4 L Phosphorus Magnesium 2.60 H ALT Total Creatine Kinase NT-Pro-B Natriuret Pep 992.5 H Serum Total Protein Total Protein 4.1 L Albumin 1.3 L Gamma Globulins PEP Interpretation Urine WBC (Auto) Urine Creatinine Ur Creatinine 24 Hour Ur Total Protein 24 Hr Urine Total Protein Valproic Acid Crossmatch 09/17/18 09/18/18 09/18/18 17:18 05:22 05:22 WBC 4.4 L RBC 3.06 L Hgb 8.5 L Hct 25.5 L MCH RDW 20.0 H Plt Count Lymph % (Auto) 36.5 H Henderson % (Auto) 12.3 H Henderson # Seg Neuts % (Manual) Lymphocytes % (Manual) Monocytes % (Manual) Nucleated RBC % Lymphocytes # (Manual) Monocytes # (Manual) APTT POC ABG pO2 Potassium Chloride 107.2 H BUN 37 H Creatinine 2.2 H Glucose Calcium 7.4 L Phosphorus Magnesium ALT 6 L Total Creatine Kinase NT-Pro-B Natriuret Pep Serum Total Protein Total Protein 3.9 L Albumin 1.4 L Gamma Globulins PEP Interpretation Urine WBC (Auto) 15.0 H Urine Creatinine Ur Creatinine 24 Hour Ur Total Protein 24 Hr Urine Total Protein Valproic Acid Crossmatch 09/18/18 09/19/18 09/19/18 10:30 05:45 05:45 WBC RBC Hgb Hct MCH RDW Plt Count Lymph % (Auto) Henderson % (Auto) Henderson # Seg Neuts % (Manual) Lymphocytes % (Manual) Monocytes % (Manual) Nucleated RBC % Lymphocytes # (Manual) Monocytes # (Manual) APTT POC ABG pO2 Potassium Chloride BUN 37 H Creatinine 2.1 H Glucose Calcium 7.3 L Phosphorus Magnesium ALT Total Creatine Kinase NT-Pro-B Natriuret Pep Serum Total Protein 3.4 L Total Protein Albumin 1.2 L Gamma Globulins 0.5 L PEP Interpretation see below H Urine WBC (Auto) Urine Creatinine 147.5 H Ur Creatinine 24 Hour 0.7 L Ur Total Protein 24 Hr 1073.50 H Urine Total Protein 226 H Valproic Acid Crossmatch 09/20/18 09/20/18 09/21/18 04:56 15:15 06:13 WBC RBC 2.84 L Hgb 7.8 L Hct 24.1 L MCH 27 L RDW 19.8 H Plt Count Lymph % (Auto) Henderson % (Auto) 12.9 H Henderson # Seg Neuts % (Manual) Lymphocytes % (Manual) Monocytes % (Manual) Nucleated RBC % Lymphocytes # (Manual) Monocytes # (Manual) APTT POC ABG pO2 Potassium 5.4 H 5.5 H Chloride 108.2 H BUN 38 H Creatinine 2.4 H Glucose Calcium 7.2 L Phosphorus Magnesium ALT Total Creatine Kinase NT-Pro-B Natriuret Pep Serum Total Protein Total Protein Albumin Gamma Globulins PEP Interpretation Urine WBC (Auto) Urine Creatinine Ur Creatinine 24 Hour Ur Total Protein 24 Hr Urine Total Protein Valproic Acid Crossmatch 09/21/18 09/21/18 09/22/18 06:13 07:00 10:12 WBC RBC Hgb Hct MCH RDW Plt Count Lymph % (Auto) Henderson % (Auto) Henderson # Seg Neuts % (Manual) Lymphocytes % (Manual) Monocytes % (Manual) Nucleated RBC % Lymphocytes # (Manual) Monocytes # (Manual) APTT POC ABG pO2 Potassium 5.2 H Chloride 108.2 H 111.5 H BUN 39 H 40 H Creatinine 2.7 H 3.1 H Glucose Calcium 7.3 L 7.1 L Phosphorus Magnesium ALT Total Creatine Kinase NT-Pro-B Natriuret Pep Serum Total Protein Total Protein Albumin Gamma Globulins PEP Interpretation Urine WBC (Auto) Urine Creatinine 97.5 H Ur Creatinine 24 Hour Ur Total Protein 24 Hr Urine Total Protein 708 H Valproic Acid Crossmatch 09/23/18 09/25/18 09/25/18 04:40 07:30 07:30 WBC RBC 2.55 L Hgb 6.9 L Hct 21.5 L MCH 27 L RDW 19.5 H Plt Count Lymph % (Auto) Henderson % (Auto) 12.2 H Henderson # Seg Neuts % (Manual) Lymphocytes % (Manual) Monocytes % (Manual) Nucleated RBC % Lymphocytes # (Manual) Monocytes # (Manual) APTT POC ABG pO2 Potassium Chloride 109.1 H BUN 42 H 33 H Creatinine 3.8 H 4.4 H Glucose 102 H Calcium 7.2 L 7.3 L Phosphorus 5.00 H Magnesium ALT Total Creatine Kinase NT-Pro-B Natriuret Pep Serum Total Protein Total Protein Albumin Gamma Globulins PEP Interpretation Urine WBC (Auto) Urine Creatinine Ur Creatinine 24 Hour Ur Total Protein 24 Hr Urine Total Protein Valproic Acid Crossmatch 09/26/18 09/26/18 09/26/18 07:17 07:17 07:17 WBC RBC Hgb 6.7 L Hct 20.0 L MCH RDW Plt Count Lymph % (Auto) [place] % (Auto) Henderson # Seg Neuts % (Manual) Lymphocytes % (Manual) Monocytes % (Manual) Nucleated RBC % Lymphocytes # (Manual) Monocytes # (Manual) APTT POC ABG pO2 Potassium Chloride BUN 24 H Creatinine 4.1 H Glucose Calcium 7.0 L Phosphorus Magnesium ALT Total Creatine Kinase 559 H NT-Pro-B Natriuret Pep Serum Total Protein Total Protein Albumin Gamma Globulins PEP Interpretation Urine WBC (Auto) Urine Creatinine Ur Creatinine 24 Hour Ur Total Protein 24 Hr Urine Total Protein Valproic Acid 13.2 L Crossmatch 09/26/18 09/27/18 09/27/18 Unknown 07:42 07:42 WBC RBC 2.16 L Hgb 6.0 L Hct 18.1 L* MCH RDW 18.9 H Plt Count 130 L Lymph % (Auto) Henderson % (Auto) 15.8 H Henderson # Seg Neuts % (Manual) Lymphocytes % (Manual) Monocytes % (Manual) Nucleated RBC % Lymphocytes # (Manual) Monocytes # (Manual) APTT 36.7 H POC ABG pO2 Potassium Chloride 108.4 H BUN 26 H Creatinine 4.8 H Glucose Calcium 7.1 L Phosphorus 4.60 H Magnesium ALT Total Creatine Kinase NT-Pro-B Natriuret Pep Serum Total Protein Total Protein Albumin Gamma Globulins PEP Interpretation Urine WBC (Auto) Urine Creatinine Ur Creatinine 24 Hour Ur Total Protein 24 Hr Urine Total Protein Valproic Acid Crossmatch 09/27/18 09/28/18 09/29/18 10:43 04:43 05:07 WBC RBC 3.29 L 3.28 L Hgb 8.9 L 8.9 L Hct 27.2 L D 27.1 L MCH 27 L 27 L RDW 19.3 H 19.3 H Plt Count 130 L 133 L Lymph % (Auto) Henderson % (Auto) 15.6 H Henderson # 0.9 H Seg Neuts % (Manual) Lymphocytes % (Manual) Monocytes % (Manual) Nucleated RBC % Lymphocytes # (Manual) Monocytes # (Manual) APTT POC ABG pO2 Potassium Chloride BUN Creatinine Glucose Calcium Phosphorus Magnesium ALT Total Creatine Kinase NT-Pro-B Natriuret Pep Serum Total Protein Total Protein Albumin Gamma Globulins PEP Interpretation Urine WBC (Auto) Urine Creatinine Ur Creatinine 24 Hour Ur Total Protein 24 Hr Urine Total Protein Valproic Acid Crossmatch See Detail 09/29/18 10/01/18 10/01/18 05:07 06:16 06:16 WBC RBC 3.18 L Hgb 8.6 L Hct 26.2 L MCH 27 L RDW 19.3 H Plt Count Lymph % (Auto) [place] % (Auto) Henderson # Seg Neuts % (Manual) Lymphocytes % (Manual) Monocytes % (Manual) Nucleated RBC % Lymphocytes # (Manual) Monocytes # (Manual) APTT POC ABG pO2 Potassium Chloride BUN 22 H 22 H Creatinine 5.4 H 6.0 H Glucose Calcium 7.1 L 7.1 L Phosphorus Magnesium ALT Total Creatine Kinase NT-Pro-B Natriuret Pep Serum Total Protein Total Protein Albumin Gamma Globulins PEP Interpretation Urine WBC (Auto) Urine Creatinine Ur Creatinine 24 Hour Ur Total Protein 24 Hr Urine Total Protein Valproic Acid Crossmatch 10/05/18 10/05/18 10/05/18 06:50 06:50 18:03 WBC RBC 3.08 L Hgb 8.3 L Hct 25.6 L MCH 27 L RDW 19.0 H Plt Count Lymph % (Auto) Henderson % (Auto) Henderson # Seg Neuts % (Manual) Lymphocytes % (Manual) Monocytes % (Manual) 11.0 H Nucleated RBC % Lymphocytes # (Manual) 0.9 L Monocytes # (Manual) APTT POC ABG pO2 57 L Potassium Chloride BUN Creatinine 4.9 H Glucose Calcium 7.3 L Phosphorus Magnesium ALT Total Creatine Kinase NT-Pro-B Natriuret Pep Serum Total Protein Total Protein 4.1 L Albumin 1.5 L Gamma Globulins PEP Interpretation Urine WBC (Auto) Urine Creatinine Ur Creatinine 24 Hour Ur Total Protein 24 Hr Urine Total Protein Valproic Acid Crossmatch 10/06/18 10/07/18 10/07/18 06:22 13:11 13:11 WBC RBC 3.04 L 3.36 L Hgb 8.1 L 9.0 L Hct 25.2 L 28.0 L MCH 27 L 27 L RDW 19.2 H 20.0 H Plt Count Lymph % (Auto) [place] % (Auto) Henderson # Seg Neuts % (Manual) 71.0 H Lymphocytes % (Manual) 10.0 L Monocytes % (Manual) 14.0 H 18.0 H Nucleated RBC % 2.0 H Lymphocytes # (Manual) 1.0 L 0.7 L Monocytes # (Manual) 1.0 H 1.2 H APTT POC ABG pO2 Potassium Chloride BUN Creatinine 4.9 H Glucose 128 H Calcium 7.4 L Phosphorus Magnesium ALT Total Creatine Kinase NT-Pro-B Natriuret Pep Serum Total Protein Total Protein Albumin Gamma Globulins PEP Interpretation Urine WBC (Auto) Urine Creatinine Ur Creatinine 24 Hour Ur Total Protein 24 Hr Urine Total Protein Valproic Acid Crossmatch Allied health notes reviewed: nursing
[2018-10-08] MEDS: PROCRIT SUB-Q PRN (13:15)
--- NOTE | 2018-10-08 14:44 | Progress Note ---
Assessment and Plan Assessment and plan: Patient is a 47 yo woman with a history of Obesity, HTN and Schizophrenia who presented to the ER with bilateral leg swelling, SOB and increase in the abdominal girth and weight gain of ~86 pounds in 10 weeks. Patient denies any h/o heart disease or Liver problem. Labs were significant for creatinine of 2.2, Hb 8.5, albumin 1.4 and 3+ protein in the urine. Patient was admitted with provisional diagnosis of Nephrotic syndrome. Nephrology was consulted for further evaluation and recommended Kidney biopsy; which patient refused on multiple occasions so Radiology declined to re-schedule the procedure. Also, During hospital coarse, she was found to have coffee ground emesis and EGD was done on 09/26/18 and showed M-W tear. Her hemoglobin was steadily dropping and she initially refused blood transfusion until Mr. Galeas convinced her to get the blood transfusion and do Hemodialysis which she refuses at times. - Acute kidney injury with ckd and nephrotic syndrome. Commenced hemodialysis on 09/24/2018 Had dialysis today -Nephrotic syndrome. 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 Patient refused several times to do Kidney biospy. will revisit Additional IV dose of Lasix given. - VRE UTI: Possible cystitis. ID recommended treating patient with amoxicillin for 3 days that banding on 09/06/18 -Coffee-ground emesis with Radha Mendez Tear. Status post EGD that showed gastritis and hiatal hernia No more active bleeding -Acute on chronic Blood loss anemia due to above -Medical non-compliance: Counseling provided but doubts patient's comprehension -Hypertensive urgency: Improved -Severe protein calorie malnutrition: Consult placed for [employer]. =Right lower extremity thigh pain. Doppler lower extremities bilaterally negative for DVT =Left breast swelling, unknown at present. Need outpatient Mammogram and U/S =Morbid obesity, bmi 55.2: lifestyle modification. BIPAP recommended but refuses =Medical noncompliance. Patient intermittently at times refusing care. Psych/Mik told me she has decision making capacity. =Schizophrenia, Bipolar disorder. Continue current medications.. As above. Psych consulted =Hyperkalemia. Kayexalate. Recheck BMP in the morning. =Sepsis. Maybe from UTI as chest x-ray shows no evidence of pneumonia. Present on admission. Treated with IV antibiotics discontinued. Etiology secondary to pneumonia and UTI. DVT/GI propy Disposition is problematic in this case. We are unable to get outpatient dialysis per case management due to diagnosis of LUCILA. Also the patient is refusing Biopsy which will help with the decision making, Refusing BIPAP ALSO. Will likely need ETHICS CONSULT. Patient unable to be discharged due to Dialysis setup outpatient. Will discuss with Nephrology if we can re-attempt Kidney Biopsy. Poor prognosis based on patients refusal of care History Interval history: Patient seen and examined, Reports improvement today, had dialysis today. although refused some labs Hospitalist Physical - Physical exam Narrative exam: Constitutional: Generalized swelling. anasacar-improved today Head: Normocephalic atraumatic Eyes: Pupils are equal round and reactive to light Nose: No enlarged turbinates, no septal deviation. Mouth: Moist mucous membranes. Neck: Supple no thyromegaly. No bruit. No JVD Heart: Regular rate and rhythm, S1-S2 normal. No rubs murmurs or gallop Lungs: Diminished to auscultation bilaterally. no rales or rhonchi Abdomen: Soft, nontender. Bowel sound are present. Edematous Extremities: 2+ edema, no cyanosis, no clubbing. Neuro: Alert oriented Oriented x3. No focal sensory or motor deficit. Skin: No rashes or hyperpigmented spots Musculoskeletal system: No joint pain or swelling Hematological: No petechia or subcutanous hemorrhages. Lymphatic: No generalized lymphadenopathy Psychiatry: Euthymic. Calm. - Constitutional Vitals: Temp Pulse Resp BP Pulse Ox 97.8 F 83 18 133/81 94 10/08/18 10:30 10/08/18 13:15 10/08/18 10:30 10/08/18 13:15 10/08/18 09:12 General appearance: Present: no acute distress, obese Results - Labs CBC & Chem 7: 10/07/18 13:11 10/07/18 13:11 Labs: Laboratory Last Values WBC 6.7 K/mm3 (4.5-11.0) 10/07/18 13:11 RBC 3.36 M/mm3 (3.65-5.03) L 10/07/18 13:11 Hgb 9.0 gm/dl (10.1-14.3) L 10/07/18 13:11 Hct 28.0 % (30.3-42.9) L 10/07/18 13:11 MCV 84 fl (79-97) 10/07/18 13:11 MCH 27 pg (28-32) L 10/07/18 13:11 MCHC 32 % (30-34) 10/07/18 13:11 RDW 20.0 % (13.2-15.2) H 10/07/18 13:11 Plt Count 154 K/mm3 (140-440) 10/07/18 13:11 Lymph % (Auto) 24.2 % (13.4-35.0) 09/29/18 05:07 Maries % (Auto) Bit Welder 10/07/18 13:11 Eos % (Auto) 1.7 % (0.0-4.3) 09/29/18 05:07 Baso % (Auto) 0.3 % (0.0-1.8) 09/29/18 05:07 Lymph # 1.4 K/mm3 (1.2-5.4) 09/29/18 05:07 Maries # 0.9 K/mm3 (0.0-0.8) H 09/29/18 05:07 Eos # 0.1 K/mm3 (0.0-0.4) 09/29/18 05:07 Baso # 0.0 K/mm3 (0.0-0.1) 09/29/18 05:07 Add Manual Diff Complete 10/07/18 13:11 Total Counted 100 10/07/18 13:11 Seg Neutrophils % 58.2 % (40.0-70.0) 09/29/18 05:07 Seg Neuts % (Manual) 70.0 % (40.0-70.0) 10/07/18 13:11 Band Neutrophils % 1.0 % 10/07/18 13:11 Lymphocytes % (Manual) 10.0 % (13.4-35.0) L 10/07/18 13:11 Reactive Lymphs % (Man) 0 % 10/07/18 13:11 Monocytes % (Manual) 18.0 % (0.0-7.3) H 10/07/18 13:11 Eosinophils % (Manual) 0 % (0.0-4.3) 10/07/18 13:11 Basophils % (Manual) 0 % (0.0-1.8) 10/07/18 13:11 Metamyelocytes % 0 % 10/07/18 13:11 Myelocytes % 1.0 % 10/07/18 13:11 Promyelocytes % 0 % 10/07/18 13:11 Blast Cells % 0 % 10/07/18 13:11 Nucleated RBC % 2.0 % (0.0-0.9) H 10/07/18 13:11 Seg Neutrophils # 3.5 K/mm3 (1.8-7.7) 09/29/18 05:07 Seg Neutrophils # Man 4.7 K/mm3 (1.8-7.7) 10/07/18 13:11 Band Neutrophils # 0.1 K/mm3 10/07/18 13:11 Lymphocytes # (Manual) 0.7 K/mm3 (1.2-5.4) L 10/07/18 13:11 Abs React Lymphs (Man) 0.0 K/mm3 10/07/18 13:11 Monocytes # (Manual) 1.2 K/mm3 (0.0-0.8) H 10/07/18 13:11 Eosinophils # (Manual) 0.0 K/mm3 (0.0-0.4) 10/07/18 13:11 Basophils # (Manual) 0.0 K/mm3 (0.0-0.1) 10/07/18 13:11 Metamyelocytes # 0.0 K/mm3 10/07/18 13:11 Myelocytes # 0.1 K/mm3 10/07/18 13:11 Promyelocytes # 0.0 K/mm3 10/07/18 13:11 Blast Cells # 0.0 K/mm3 10/07/18 13:11 WBC Morphology Not Reportable 10/07/18 13:11 Hypersegmented Neuts Not Reportable 10/07/18 13:11 Hyposegmented Neuts Not Reportable 10/07/18 13:11 Hypogranular Neuts Not Reportable 10/07/18 13:11 Smudge Cells Not Reportable 10/07/18 13:11 Toxic Granulation Not Reportable 10/07/18 13:11 Toxic Vacuolation Not Reportable 10/07/18 13:11 Dohle Bodies Not Reportable 10/07/18 13:11 Pelger-Huet Anomaly Not Reportable 10/07/18 13:11 Latasha Rods Not Reportable 10/07/18 13:11 Platelet Estimate Consistent w auto 10/07/18 13:11 Clumped Platelets Not Reportable 10/07/18 13:11 Plt Clumps, EDTA Not Reportable 10/07/18 13:11 Large Platelets Not Reportable 10/07/18 13:11 Giant Platelets Not Reportable 10/07/18 13:11 Platelet Satelliting Not Reportable 10/07/18 13:11 Plt Morphology Comment Not Reportable 10/07/18 13:11 RBC Morphology Not Reportable 10/07/18 13:11 Dimorphic RBCs Not Reportable 10/07/18 13:11 Polychromasia Not Reportable 10/07/18 13:11 Hypochromasia Not Reportable 10/07/18 13:11 Poikilocytosis Not Reportable 10/07/18 13:11 Anisocytosis Not Reportable 10/07/18 13:11 Microcytosis 1+ 10/07/18 13:11 Macrocytosis Not Reportable 10/07/18 13:11 Spherocytes Not Reportable 10/07/18 13:11 Pappenheimer Bodies Not Reportable 10/07/18 13:11 Sickle Cells Not Reportable 10/07/18 13:11 Target Cells Not Reportable 10/07/18 13:11 Tear Drop Cells Not Reportable 10/07/18 13:11 Ovalocytes Not Reportable 10/07/18 13:11 Helmet Cells Not Reportable 10/07/18 13:11 Maldonado-Ladonia Bodies Not Reportable 10/07/18 13:11 [place] Rings Not Reportable 10/07/18 13:11 [place] Cells Not Reportable 10/07/18 13:11 Bite Cells Not Reportable 10/07/18 13:11 Crenated Cell Not Reportable 10/07/18 13:11 Elliptocytes Not Reportable 10/07/18 13:11 Acanthocytes (Spur) Not Reportable 10/07/18 13:11 Rouleaux Not Reportable 10/07/18 13:11 Hemoglobin C Crystals Not Reportable 10/07/18 13:11 Schistocytes Not Reportable 10/07/18 13:11 Malaria parasites Not Reportable 10/07/18 13:11 Paul Bodies Not Reportable 10/07/18 13:11 Hem Pathologist Commnt No 10/07/18 13:11 PT 12.7 Sec. (12.2-14.9) 09/26/18 Unknown INR 0.90 (0.87-1.13) 09/26/18 Unknown APTT 36.7 Sec. (24.2-36.6) H 09/26/18 Unknown POC ABG pH 7.434 (7.35-7.45) 10/05/18 18:03 POC ABG pCO2 43.4 (35-45) 10/05/18 18:03 POC ABG pO2 57 (80-105) L 10/05/18 18:03 POC ABG HCO3 29.0 (22-26 mml/L) 10/05/18 18:03 POC ABG Total CO2 30 (23-27mmol/L) 10/05/18 18:03 POC ABG O2 Sat 90 10/05/18 18:03 POC ABG Base Excess 5 ((-2) - (+3)mmol/L) 10/05/18 18:03 FiO2 21 % 10/05/18 18:03 Sodium 140 mmol/L (137-145) 10/07/18 13:11 Potassium 4.1 mmol/L (3.6-5.0) 10/07/18 13:11 Chloride 103.6 mmol/L (98-107) 10/07/18 13:11 Carbon Dioxide 26 mmol/L (22-30) 10/07/18 13:11 Anion Gap 15 mmol/L 10/07/18 13:11 BUN 13 mg/dL (7-17) 10/07/18 13:11 Creatinine 4.9 mg/dL (0.7-1.2) H 10/07/18 13:11 Estimated GFR 12 ml/min 10/07/18 13:11 BUN/Creatinine Ratio 3 % 10/07/18 13:11 Glucose 128 mg/dL (65-100) H 10/07/18 13:11 Calcium 7.4 mg/dL (8.4-10.2) L 10/07/18 13:11 Phosphorus 4.60 mg/dL (2.5-4.5) H 09/27/18 07:42 Magnesium 2.60 mg/dL (1.7-2.3) H 09/17/18 15:17 Total Bilirubin < 0.20 mg/dL (0.1-1.2) 10/05/18 06:50 AST 14 units/L (5-40) 10/05/18 06:50 ALT 7 units/L (7-56) 10/05/18 06:50 Alkaline Phosphatase 52 units/L (35-129) 10/05/18 06:50 Total Creatine Kinase 559 units/L (30-135) H 09/26/18 07:17 Troponin T 0.012 ng/mL (0.00-0.029) 09/17/18 15:17 NT-Pro-B Natriuret Pep 992.5 pg/mL (0-450) H 09/17/18 15:17 Serum Total Protein 3.4 g/dL (6.1-8.1) L 09/19/18 05:45 Total Protein 4.1 g/dL (6.3-8.2) L 10/05/18 06:50 Albumin 1.5 g/dL (3.9-5) L 10/05/18 06:50 Albumin/Globulin Ratio 0.6 % 10/05/18 06:50 Dzsed-7-Mgcgtacms 0.3 g/dL (0.2-0.3) 09/19/18 05:45 Ozqfa-7-Hwwuuglpg 0.8 g/dL (0.5-0.9) 09/19/18 05:45 Beta Globulins 0.4 g/dL (0.2-0.5) 09/19/18 05:45 Gamma Globulins 0.5 g/dL (0.8-1.7) L 09/19/18 05:45 Abnorm Protein Band 1 see below 09/19/18 05:45 PEP Interpretation see below H 09/19/18 05:45 Amylase 53 units/L (27-131) 09/25/18 13:53 Lipase 48 units/L (13-60) 09/25/18 13:53 HCG, Qual Negative (Negative) 09/25/18 13:53 PTH Intact 46.07 pg/mL (15-65) 09/19/18 05:45 Urine Color Yellow (Yellow) 09/17/18 17:18 Urine Turbidity Cloudy (Clear) 09/17/18 17:18 Urine pH 5.0 (5.0-7.0) 09/17/18 17:18 Ur Specific [place] 1.029 (1.003-1.030) 09/17/18 17:18 Urine Protein >500 mg/dL (Negative) 09/17/18 17:18 Urine Glucose (UA) Neg mg/dL (Negative) 09/17/18 17:18 Urine Ketones Tr mg/dL (Negative) 09/17/18 17:18 Urine Blood Sm (Negative) 09/17/18 17:18 Urine Nitrite Neg (Negative) 09/17/18 17:18 Urine Bilirubin Neg (Negative) 09/17/18 17:18 Urine Urobilinogen < 2.0 mg/dL (<2.0) 09/17/18 17:18 Ur Leukocyte Esterase Neg (Negative) 09/17/18 17:18 Urine WBC (Auto) 15.0 /HPF (0.0-6.0) H 09/17/18 17:18 Urine RBC (Auto) 13.0 /HPF (0.0-6.0) 09/17/18 17:18 U Epithel Cells (Auto) 6.0 /HPF (0-13.0) 09/17/18 17:18 Urine Bacteria (Auto) 2+ /HPF (Negative) 09/17/18 17:18 Urine WBC Clumps 2+ /HPF 09/17/18 17:18 Hyaline Casts 6 /LPF 09/17/18 17:18 Urine Mucus Few /HPF 09/17/18 17:18 Urine Yeast (Budding) 2+ /HPF 09/17/18 17:18 Urine Eosinophils None seen (None Seen) 09/18/18 10:30 Urine Total Volume 475 ml 09/18/18 10:30 Urine Creatinine 97.5 mg/dL (0.1-20.0) H 09/21/18 07:00 Ur Creatinine 24 Hour 0.7 (0.8-2.8) L 09/18/18 10:30 Ur Total Protein 24 Hr 1073.50 mg/dL (2-200) H 09/18/18 10:30 Protein/Creatinin Ratio 7.26 09/21/18 07:00 Urine Sodium 53 mmol/L 09/21/18 07:00 Urine Urea Nitrogen 467 09/18/18 10:30 Ur Urea Nitrogen 24 Hr 2.22 09/18/18 10:30 Urine Total Protein 708 mg/dL (5-11.8) H 09/21/18 07:00 Urine Opiates Screen Presumptive negative 09/17/18 17:18 Urine Methadone Screen Presumptive negative 09/17/18 17:18 Ur Barbiturates Screen Presumptive negative 09/17/18 17:18 Valproic Acid 13.2 ug/mL (50-100) L 09/26/18 07:17 Ur Phencyclidine Scrn Presumptive negative 09/17/18 17:18 Ur Amphetamines Screen Presumptive negative 09/17/18 17:18 U Benzodiazepines Scrn Presumptive negative 09/17/18 17:18 Urine Cocaine Screen Presumptive negative 09/17/18 17:18 U Marijuana (THC) Screen Presumptive negative 09/17/18 17:18 Drugs of Abuse Note Disclamer 09/17/18 17:18 BI Screen Negative (Negative) 09/19/18 05:45 Proteinase 3 (PR3) Ab <1.0 AI (<1.0) 09/19/18 05:45 Myeloperoxidase Ab <1.0 AI (<1.0) 09/19/18 05:45 Glomerular Base Mem IgG See scanned result 09/19/18 05:45 Complement C3 143 mg/dL (83-193) 09/19/18 05:45 Complement C4 56 mg/dL (15-57) 09/19/18 05:45 Hepatitis A IgM Ab Non-reactive (NonReactive) 09/19/18 05:45 Hep Bs Antigen Non-reactive (Negative) 09/19/18 05:45 Hep B Core IgM Ab Non-reactive (NonReactive) 09/19/18 05:45 Hepatitis C Antibody Non-reactive (NonReactive) 09/19/18 05:45 HIV 1&2 Antibody Rapid Non react (Non React) 09/27/18 07:42 HIV P24 Antigen Non react (Non React) 09/27/18 07:42 Blood Type O POSITIVE 09/27/18 10:43 Antibody Screen Negative 09/27/18 10:43 Crossmatch See Detail 09/27/18 10:43 Active Medications - Current Medications Current Medications: Generic Name Dose Route Start Last Admin Trade Name Freq PRN Reason Stop Dose Admin Acetaminophen 650 mg 09/18/18 02:40 09/27/18 05:36 Tylenol PO 650 mg Q4H PRN Administration Pain MILD(1-3)/Fever >100.5/MENDOZA Atorvastatin Calcium 40 mg 09/18/18 22:00 10/07/18 22:21 Lipitor PO 40 mg QHS LUZ Administration Diphenhydramine HCl 50 mg 09/18/18 22:00 10/07/18 22:21 Benadryl PO 50 mg HS LUZ Administration Divalproex Sodium 500 mg 09/18/18 10:00 10/08/18 10:[address] PO 500 mg BID LUZ Administration Enoxaparin Sodium 30 mg 09/20/18 22:00 10/07/18 22:20 Lovenox SUB-Q 30 mg QDAY@2200 LUZ Administration Epoetin Luis 20,000 unit 09/26/18 12:23 10/08/18 13:15 Procrit SUB-Q 20,000 unit KUSHAL PRN Administration hemodialysis Furosemide 80 mg 09/29/18 06:00 10/08/18 05:29 Lasix PO 80 mg 0600,1800 LUZ Administration Haloperidol 5 mg 09/25/18 22:00 10/07/18 22:20 Haldol PO 5 mg HS LUZ Administration Hydralazine HCl 10 mg 09/22/18 06:28 09/22/18 12:12 Apresoline IV 10 mg Q4H PRN Administration systolic b/p >165 Hydromorphone HCl 0.5 mg 09/18/18 02:40 Dilaudid IV Q3H PRN Pain , Severe (7-10) Sodium Chloride 100 mls @ 999 mls/hr 10/08/18 09:00 Nacl 0.9% IV KUSHAL PRN Hypotension Losartan Potassium 50 mg 10/04/18 10:00 10/07/18 13:03 [facility] Metoprol[facility] Tartrate 50 mg 10/07/18 13:00 10/07/18 22:21 Lopressor PO 50 mg BID LUZ Administration Ondansetron HCl 4 mg 09/18/18 02:40 10/07/18 03:15 Zofran IV 4 mg Q8H PRN Administration Nausea And Vomiting Oxycodone/Acetaminophen 1 tab 09/18/18 02:40 10/06/18 11:37 Percocet 5/325 PO 1 tab Q6H PRN Administration Pain, Moderate (4-6) Pantoprazole Sodium 40 mg 10/02/18 10:00 10/08/18 10:08 Protonix PO 40 mg DAILY LUZ Administration Sodium Chloride 10 ml 09/18/18 10:00 10/08/18 10:08 Sodium Chloride Flush Syringe 10 Ml IV 10 ml BID LUZ Administration Sodium Chloride 10 ml 09/18/18 02:40 Sodium Chloride Flush Syringe 10 Ml IV PRN PRN LINE FLUSH Nutrition/Malnutrition Assess - Dietary Evaluation Nutrition/Malnutrition Findings: Nutrition Notes Start: 09/24/18 15:36 Freq: Status: Active Protocol: Document 10/05/18 14:16 RD (Rec: 10/05/18 14:35 RD [email or web address]) Co-Sign 10/05/18 14:16 OL Nutrition Notes Need for Assessment generated from: MD Order Initial or Follow up Brief Note Current Diagnosis Sepsis,Respiratory Failure Other Pertinent Diagnosis renal failure on HD, nephrotic syndrome, anemia Current Diet GI soft Labs/Tests Albumin 1.5 Subjective/Other Information RD consulted for malnutrition risk. Pt asleep at time of visit. Nutrition Intervention Follow-Up By: 10/08/18 Additional Comments f/u: assessment needs
[2018-10-08] MEDS: LOPRESSOR PO SCH ×2 (18:52→22:15)
[2018-10-08] MEDS: COZAAR PO SCH (18:52)
--- NOTE | 2018-10-08 19:12 | Progress Note ---
Assessment and Plan Patient sleeping at this time.Patient is suppose to be on 2 litres o2.Not using her O2 as recommended. O2 saturation 90% on room air. No acute respiratory distress.Recommend to keep O2 all the time. - Patient Problems (1) Pneumonia involving left lung Current Visit: Yes Status: Acute Plan to address problem: Patient is off the antibiotics. Chest xray reported no acute cardiopulmonary process. Patient afebrile. No leukocytosis. (2) Acute exacerbation of congestive heart failure Current Visit: Yes Status: Acute Plan to address problem: Management as per cardiology. (3) Nephrotic syndrome Current Visit: Yes Status: Acute Plan to address problem: Management as per nephrology. Subjective Date of service: 10/08/18 Principal diagnosis: coffee-ground emesis Interval history: Patient sleeping at this time.Patient is suppose to be on 2 litres o2.Not using her O2 as recommended. O2 saturation 90% on room air. No acute respiratory distress.Recommend to keep O2 all the time. Objective Vital Signs - 12hr 10/08/18 10/08/18 10/08/18 09:12 10:30 10:35 Temperature 97.8 F Pulse Rate 89 78 Respiratory 18 Rate Blood Pressure 146/84 157/84 O2 Sat by Pulse 94 Oximetry 10/08/18 10/08/18 10/08/18 10:45 11:00 11:15 Temperature Pulse Rate 104 H 78 70 Respiratory Rate Blood Pressure 181/100 144/81 124/66 O2 Sat by Pulse Oximetry 10/08/18 10/08/18 10/08/18 11:30 11:45 12:00 Temperature Pulse Rate 72 72 76 Respiratory Rate Blood Pressure 133/62 125/65 140/75 O2 Sat by Pulse Oximetry 10/08/18 10/08/18 10/08/18 12:15 12:30 12:45 Temperature Pulse Rate 78 86 78 Respiratory Rate Blood Pressure 161/90 155/71 159/77 O2 Sat by Pulse Oximetry 10/08/18 10/08/18 10/08/18 13:00 13:15 13:30 Temperature Pulse Rate 77 83 88 Respiratory Rate Blood Pressure 153/84 133/81 132/79 O2 Sat by Pulse Oximetry 10/08/18 10/08/18 10/08/18 13:45 14:00 14:15 Temperature 98.8 F Pulse Rate 84 84 82 Respiratory 18 Rate Blood Pressure 133/70 134/75 142/78 O2 Sat by Pulse Oximetry 10/08/18 10/08/18 17:04 17:05 Temperature 98.3 F Pulse Rate 89 Respiratory 22 Rate Blood Pressure 142/82 O2 Sat by Pulse 95 Oximetry Constitutional: no acute distress, asleep Eyes: non-icteric ENT: oropharynx moist Neck: supple, no JVD Effort: mildly labored Ascultation: Bilateral: diminished breath sounds Percussion: Bilateral: not dull Cardiovascular: regular rate and rhythm Gastrointestinal: normoactive bowel sounds, soft, non-tender Integumentary: normal Extremities: no cyanosis, no edema Neurologic: non-focal exam, pupils equal and round, CN II-XII normal Psychiatric: depressed CBC and BMP: 10/07/18 13:11 10/07/18 13:11 ABG, PT/INR, D-dimer: ABG POC ABG pH 7.434 (7.35-7.45) 10/05/18 18:03 POC ABG pCO2 43.4 (35-45) 10/05/18 18:03 POC ABG pO2 57 (80-105) L 10/05/18 18:03 POC ABG HCO3 29.0 (22-26 mml/L) 10/05/18 18:03 POC ABG Total CO2 30 (23-27mmol/L) 10/05/18 18:03 POC ABG O2 Sat 90 10/05/18 18:03 PT/INR, D-dimer PT 12.7 Sec. (12.2-14.9) 09/26/18 Unknown INR 0.90 (0.87-1.13) 09/26/18 Unknown Abnormal lab findings: Abnormal Labs 09/17/18 09/17/18 09/17/18 15:17 15:17 15:17 WBC RBC 3.34 L Hgb 9.1 L Hct 27.9 L MCH 27 L RDW 20.5 H Plt Count Lymph % (Auto) [place] % (Auto) 8.8 H [place] # Seg Neuts % (Manual) Lymphocytes % (Manual) Monocytes % (Manual) Nucleated RBC % Lymphocytes # (Manual) Monocytes # (Manual) APTT 22.2 L POC ABG pO2 Potassium Chloride 107.7 H BUN 37 H Creatinine 2.3 H Glucose Calcium 7.4 L Phosphorus Magnesium 2.60 H ALT Total Creatine Kinase NT-Pro-B Natriuret Pep 992.5 H Serum Total Protein Total Protein 4.1 L Albumin 1.3 L Gamma Globulins PEP Interpretation Urine WBC (Auto) Urine Creatinine Ur Creatinine 24 Hour Ur Total Protein 24 Hr Urine Total Protein Valproic Acid Crossmatch 09/17/18 09/18/18 09/18/18 17:18 05:22 05:22 WBC 4.4 L RBC 3.06 L Hgb 8.5 L Hct 25.5 L MCH RDW 20.0 H Plt Count Lymph % (Auto) 36.5 H [place] % (Auto) 12.3 H [place] # Seg Neuts % (Manual) Lymphocytes % (Manual) Monocytes % (Manual) Nucleated RBC % Lymphocytes # (Manual) Monocytes # (Manual) APTT POC ABG pO2 Potassium Chloride 107.2 H BUN 37 H Creatinine 2.2 H Glucose Calcium 7.4 L Phosphorus Magnesium ALT 6 L Total Creatine Kinase NT-Pro-B Natriuret Pep Serum Total Protein Total Protein 3.9 L Albumin 1.4 L Gamma Globulins PEP Interpretation Urine WBC (Auto) 15.0 H Urine Creatinine Ur Creatinine 24 Hour Ur Total Protein 24 Hr Urine Total Protein Valproic Acid Crossmatch 09/18/18 09/19/18 09/19/18 10:30 05:45 05:45 WBC RBC Hgb Hct MCH RDW Plt Count Lymph % (Auto) [place] % (Auto) [place] # Seg Neuts % (Manual) Lymphocytes % (Manual) Monocytes % (Manual) Nucleated RBC % Lymphocytes # (Manual) Monocytes # (Manual) APTT POC ABG pO2 Potassium Chloride BUN 37 H Creatinine 2.1 H Glucose Calcium 7.3 L Phosphorus Magnesium ALT Total Creatine Kinase NT-Pro-B Natriuret Pep Serum Total Protein 3.4 L Total Protein Albumin 1.2 L Gamma Globulins 0.5 L PEP Interpretation see below H Urine WBC (Auto) Urine Creatinine 147.5 H Ur Creatinine 24 Hour 0.7 L Ur Total Protein 24 Hr 1073.50 H Urine Total Protein 226 H Valproic Acid Crossmatch 09/20/18 09/20/18 09/21/18 04:56 15:15 06:13 WBC RBC 2.84 L Hgb 7.8 L Hct 24.1 L MCH 27 L RDW 19.8 H Plt Count Lymph % (Auto) [place] % (Auto) 12.9 H [place] # Seg Neuts % (Manual) Lymphocytes % (Manual) Monocytes % (Manual) Nucleated RBC % Lymphocytes # (Manual) Monocytes # (Manual) APTT POC ABG pO2 Potassium 5.4 H 5.5 H Chloride 108.2 H BUN 38 H Creatinine 2.4 H Glucose Calcium 7.2 L Phosphorus Magnesium ALT Total Creatine Kinase NT-Pro-B Natriuret Pep Serum Total Protein Total Protein Albumin Gamma Globulins PEP Interpretation Urine WBC (Auto) Urine Creatinine Ur Creatinine 24 Hour Ur Total Protein 24 Hr Urine Total Protein Valproic Acid Crossmatch 09/21/18 09/21/18 09/22/18 06:13 07:00 10:12 WBC RBC Hgb Hct MCH RDW Plt Count Lymph % (Auto) [place] % (Auto) [place] # Seg Neuts % (Manual) Lymphocytes % (Manual) Monocytes % (Manual) Nucleated RBC % Lymphocytes # (Manual) Monocytes # (Manual) APTT POC ABG pO2 Potassium 5.2 H Chloride 108.2 H 111.5 H BUN 39 H 40 H Creatinine 2.7 H 3.1 H Glucose Calcium 7.3 L 7.1 L Phosphorus Magnesium ALT Total Creatine Kinase NT-Pro-B Natriuret Pep Serum Total Protein Total Protein Albumin Gamma Globulins PEP Interpretation Urine WBC (Auto) Urine Creatinine 97.5 H Ur Creatinine 24 Hour Ur Total Protein 24 Hr Urine Total Protein 708 H Valproic Acid Crossmatch 09/23/18 09/25/18 09/25/18 04:40 07:30 07:30 WBC RBC 2.55 L Hgb 6.9 L Hct 21.5 L MCH 27 L RDW 19.5 H Plt Count Lymph % (Auto) [place] % (Auto) 12.2 H [place] # Seg Neuts % (Manual) Lymphocytes % (Manual) Monocytes % (Manual) Nucleated RBC % Lymphocytes # (Manual) Monocytes # (Manual) APTT POC ABG pO2 Potassium Chloride 109.1 H BUN 42 H 33 H Creatinine 3.8 H 4.4 H Glucose 102 H Calcium 7.2 L 7.3 L Phosphorus 5.00 H Magnesium ALT Total Creatine Kinase NT-Pro-B Natriuret Pep Serum Total Protein Total Protein Albumin Gamma Globulins PEP Interpretation Urine WBC (Auto) Urine Creatinine Ur Creatinine 24 Hour Ur Total Protein 24 Hr Urine Total Protein Valproic Acid Crossmatch 09/26/18 09/26/18 09/26/18 07:17 07:17 07:17 WBC RBC Hgb 6.7 L Hct 20.0 L MCH RDW Plt Count Lymph % (Auto) [place] % (Auto) [place] # Seg Neuts % (Manual) Lymphocytes % (Manual) Monocytes % (Manual) Nucleated RBC % Lymphocytes # (Manual) Monocytes # (Manual) APTT POC ABG pO2 Potassium Chloride BUN 24 H Creatinine 4.1 H Glucose Calcium 7.0 L Phosphorus Magnesium ALT Total Creatine Kinase 559 H NT-Pro-B Natriuret Pep Serum Total Protein Total Protein Albumin Gamma Globulins PEP Interpretation Urine WBC (Auto) Urine Creatinine Ur Creatinine 24 Hour Ur Total Protein 24 Hr Urine Total Protein Valproic Acid 13.2 L Crossmatch 09/26/18 09/27/18 09/27/18 Unknown 07:42 07:42 WBC RBC 2.16 L Hgb 6.0 L Hct 18.1 L* MCH RDW 18.9 H Plt Count 130 L Lymph % (Auto) [place] % (Auto) 15.8 H [place] # Seg Neuts % (Manual) Lymphocytes % (Manual) Monocytes % (Manual) Nucleated RBC % Lymphocytes # (Manual) Monocytes # (Manual) APTT 36.7 H POC ABG pO2 Potassium Chloride 108.4 H BUN 26 H Creatinine 4.8 H Glucose Calcium 7.1 L Phosphorus 4.60 H Magnesium ALT Total Creatine Kinase NT-Pro-B Natriuret Pep Serum Total Protein Total Protein Albumin Gamma Globulins PEP Interpretation Urine WBC (Auto) Urine Creatinine Ur Creatinine 24 Hour Ur Total Protein 24 Hr Urine Total Protein Valproic Acid Crossmatch 09/27/18 09/28/18 09/29/18 10:43 04:43 05:07 WBC RBC 3.29 L 3.28 L Hgb 8.9 L 8.9 L Hct 27.2 L D 27.1 L MCH 27 L 27 L RDW 19.3 H 19.3 H Plt Count 130 L 133 L Lymph % (Auto) [place] % (Auto) 15.6 H [place] # 0.9 H Seg Neuts % (Manual) Lymphocytes % (Manual) Monocytes % (Manual) Nucleated RBC % Lymphocytes # (Manual) Monocytes # (Manual) APTT POC ABG pO2 Potassium Chloride BUN Creatinine Glucose Calcium Phosphorus Magnesium ALT Total Creatine Kinase NT-Pro-B Natriuret Pep Serum Total Protein Total Protein Albumin Gamma Globulins PEP Interpretation Urine WBC (Auto) Urine Creatinine Ur Creatinine 24 Hour Ur Total Protein 24 Hr Urine Total Protein Valproic Acid Crossmatch See Detail 09/29/18 10/01/18 10/01/18 05:07 06:16 06:16 WBC RBC 3.18 L Hgb 8.6 L Hct 26.2 L MCH 27 L RDW 19.3 H Plt Count Lymph % (Auto) [place] % (Auto) [place] # Seg Neuts % (Manual) Lymphocytes % (Manual) Monocytes % (Manual) Nucleated RBC % Lymphocytes # (Manual) Monocytes # (Manual) APTT POC ABG pO2 Potassium Chloride BUN 22 H 22 H Creatinine 5.4 H 6.0 H Glucose Calcium 7.1 L 7.1 L Phosphorus Magnesium ALT Total Creatine Kinase NT-Pro-B Natriuret Pep Serum Total Protein Total Protein Albumin Gamma Globulins PEP Interpretation Urine WBC (Auto) Urine Creatinine Ur Creatinine 24 Hour Ur Total Protein 24 Hr Urine Total Protein Valproic Acid Crossmatch 10/05/18 10/05/18 10/05/18 06:50 06:50 18:03 WBC RBC 3.08 L Hgb 8.3 L Hct 25.6 L MCH 27 L RDW 19.0 H Plt Count Lymph % (Auto) [place] % (Auto) [place] # Seg Neuts % (Manual) Lymphocytes % (Manual) Monocytes % (Manual) 11.0 H Nucleated RBC % Lymphocytes # (Manual) 0.9 L Monocytes # (Manual) APTT POC ABG pO2 57 L Potassium Chloride BUN Creatinine 4.9 H Glucose Calcium 7.3 L Phosphorus Magnesium ALT Total Creatine Kinase NT-Pro-B Natriuret Pep Serum Total Protein Total Protein 4.1 L Albumin 1.5 L Gamma Globulins PEP Interpretation Urine WBC (Auto) Urine Creatinine Ur Creatinine 24 Hour Ur Total Protein 24 Hr Urine Total Protein Valproic Acid Crossmatch 10/06/18 10/07/18 10/07/18 06:22 13:11 13:11 WBC RBC 3.04 L 3.36 L Hgb 8.1 L 9.0 L Hct 25.2 L 28.0 L MCH 27 L 27 L RDW 19.2 H 20.0 H Plt Count Lymph % (Auto) [place] % (Auto) [place] # Seg Neuts % (Manual) 71.0 H Lymphocytes % (Manual) 10.0 L Monocytes % (Manual) 14.0 H 18.0 H Nucleated RBC % 2.0 H Lymphocytes # (Manual) 1.0 L 0.7 L Monocytes # (Manual) 1.0 H 1.2 H APTT POC ABG pO2 Potassium Chloride BUN Creatinine 4.9 H Glucose 128 H Calcium 7.4 L Phosphorus Magnesium ALT Total Creatine Kinase NT-Pro-B Natriuret Pep Serum Total Protein Total Protein Albumin Gamma Globulins PEP Interpretation Urine WBC (Auto) Urine Creatinine Ur Creatinine 24 Hour Ur Total Protein 24 Hr Urine Total Protein Valproic Acid Crossmatch Chest x-ray: report reviewed (No acute cardio pulmonary process.), image reviewed Allied health notes reviewed: nursing
[2018-10-08] MEDS: LOVENOX SUB-Q SCH (22:05)
[2018-10-08] MEDS: HALDOL PO SCH (22:05)
[2018-10-08] MEDS: BENADRYL PO SCH (22:05)
[2018-10-08] MEDS: PERCOCET 5/325 PO PRN (22:06)
[2018-10-09] MEDS: LASIX PO SCH (06:41)
--- NOTE | 2018-10-09 09:16 | Progress Note ---
Assessment and Plan 1. Acute kidney injury superimposed on CKD: LUCILA likely related Nephrotic syndrome. Chronicity of the CKD or LUCILA is unknown. Doubt if there is going to be any renal recovery. Suspect ESRD and need for nursing home hemodialysis. Patient was started on hemodialysis on 09/24/2018 due to worsening renal function, anasarca and suspected pulmonary edema. Last dialyzed yesterday. Patient has been refusing HD / Isolated UF intermittently. Next HD tomorrow. Renal prognosis appears to be poor at this time. 2. Nephrotic syndrome: Possible causes include but not limited to FSGS, Minimal change, Membranous and Lupus nephritis. Complements, BI, ANCA, SPEP, GBM Ab, Hepatitis panel and HIV are negative. Unable to give definitive treatment due to lack of pathological diagnosis. Although she refused for Kidney biospy on several times she is willing to get it done. Patient verbalized understanding regarding the indications, benefits and risks involved in kidney biopsy. Kidney biopsy likely tomorrow. Patient is on Lovenox to prevent DVT. Continue ARB and Statin. 3. FEN: Volume overload, UF with HD. On Lasix. Hyperkalemia, improved. 4. VRE bacteriuria. 5. HTN: Monitor BP. 6. Anemia: GI bleed. S/p PRBC. Epogen with HD. 7. Schizophrenia. 8. Medical non-compliance. Subjective Date of service: 10/09/18 Principal diagnosis: coffee-ground emesis Interval history: Patient was seen and examined at the bedside. Doing ok. Objective - Vital Signs Vital signs: Vital Signs - 12hr 10/08/18 10/08/18 10/08/18 22:00 22:06 22:12 Temperature 99.4 F Pulse Rate 78 Respiratory 18 18 Rate Respiratory 18 Rate [Headache] Blood Pressure 122/65 O2 Sat by Pulse 97 Oximetry 10/08/18 10/09/18 23:06 08:58 Temperature Pulse Rate Respiratory 18 Rate Respiratory 18 Rate [Headache] Blood Pressure O2 Sat by Pulse Oximetry - General Appearance General appearance: well-developed, well-nourished, appears stated age, obese, other (not in distress, right IJ tunnel catheter) EENT: ATNC, PERRL, mucous membranes moist, hearing intact, vision intact Neck: supple Respiratory: Present: Clear to Ascultation Cardiology: regular, S1S2, no murmurs Gastrointestinal: normoactive bowel sounds, no tenderness, no distended Integumentary: no rash, warm and dry Neurologic: no focal deficit, no asterixis, alert and oriented x3 Musculoskeletal: other (2+ edema of both LEs noted) - Lab 10/07/18 13:11 10/07/18 13:11 Most recent lab results Calcium 7.4 mg/dL (8.4-10.2) L 10/07/18 13:11 Phosphorus 4.60 mg/dL (2.5-4.5) H 09/27/18 07:42 Magnesium 2.60 mg/dL (1.7-2.3) H 09/17/18 15:17 Urine Creatinine 97.5 mg/dL (0.1-20.0) H 09/21/18 07:00 Ur Total Protein 24 Hr 1073.50 mg/dL (2-200) H 09/18/18 10:30 Urine Sodium 53 mmol/L 09/21/18 07:00 Urine Total Protein 708 mg/dL (5-11.8) H 09/21/18 07:00 Medications & Allergies - Medications Allergies/Adverse Reactions: Allergies No Known Allergies Allergy (Unverified 09/17/18 15:05) Home Medications: Home Medications Medication Instructions Recorded Confirmed Last Taken Type Divalproex Sodium [Depakote] 500 mg PO BID 09/17/18 09/17/18 Unknown History Haldol (Nf) 10 mg PO QHS 09/17/18 10/06/18 Unknown History Invega Sustenna 156 mg IM QMONTH 09/17/18 10/06/18 Unknown History diphenhydrAMINE [Benadryl CAP] 50 mg PO HS 09/17/18 09/17/18 Unknown History Active Medications: Generic Name Dose Route Start Last Admin Trade Name Freq PRN Reason Stop Dose Admin Acetaminophen 650 mg 09/18/18 02:40 09/27/18 05:36 Tylenol PO 650 mg Q4H PRN Administration Pain MILD(1-3)/Fever >100.5/MENDOZA Atorvastatin Calcium 40 mg 09/18/18 22:00 10/08/18 22:05 Lipitor PO 40 mg QHS LUZ Administration Diphenhydramine HCl 50 mg 09/18/18 22:00 10/08/18 22:05 Benadryl PO 50 mg HS LUZ Administration Divalproex Sodium 500 mg 09/18/18 10:00 10/08/18 22:[address] PO 500 mg BID LUZ Administration Enoxaparin Sodium 30 mg 09/20/18 22:00 10/08/18 22:05 Lovenox SUB-Q 30 mg QDAY@2200 LUZ Administration Epoetin Luis 20,000 unit 09/26/18 12:23 10/08/18 13:15 Procrit SUB-Q 20,000 unit KUSHAL PRN Administration hemodialysis Furosemide 80 mg 09/29/18 06:00 10/09/18 06:41 Lasix PO 80 mg 0600,1800 LUZ Administration Haloperidol 5 mg 09/25/18 22:00 10/08/18 22:05 Haldol PO 5 mg HS LUZ Administration Hydralazine HCl 10 mg 09/22/18 06:28 09/22/18 12:12 Apresoline IV 10 mg Q4H PRN Administration systolic b/p >165 Hydromorphone HCl 0.5 mg 09/18/18 02:40 Dilaudid IV Q3H PRN Pain , Severe (7-10) Sodium Chloride 100 mls @ 999 mls/hr 10/08/18 09:00 Nacl 0.9% IV KUSHAL PRN Hypotension Losartan Potassium 50 mg 10/04/18 10:00 10/08/18 18:52 Cozaar PO 50 mg QDAY LUZ Administration Metoprolol Tartrate 50 mg 10/07/18 13:00 10/08/18 22:15 Lopressor PO 50 mg BID LUZ Administration Ondansetron HCl 4 mg 09/18/18 02:40 10/07/18 03:15 Zofran IV 4 mg Q8H PRN Administration Nausea And Vomiting Oxycodone/Acetaminophen 1 tab 09/18/18 02:40 10/08/18 22:06 Percocet 5/325 PO 1 tab Q6H PRN Administration Pain, Moderate (4-6) Pantoprazole Sodium 40 mg 10/02/18 10:00 10/08/18 10:08 Protonix PO 40 mg DAILY LUZ Administration Sodium Chloride 10 ml 09/18/18 10:00 10/08/18 22:06 Sodium Chloride Flush Syringe 10 Ml IV 10 ml BID LUZ Administration Sodium Chloride 10 ml 09/18/18 02:40 Sodium Chloride Flush Syringe 10 Ml IV PRN PRN LINE FLUSH
[2018-10-09] MEDS: LOPRESSOR PO SCH ×2 (13:20→22:03)
[2018-10-09] MEDS: PROTONIX PO SCH (13:20)
[2018-10-09] MEDS: COZAAR PO SCH (13:21)
[2018-10-09] MEDS: SODIUM CHLORIDE FLUSH SYRINGE 10 ML IV SCH ×2 (13:21→22:04)
--- NOTE | 2018-10-09 13:35 | Progress Note ---
Assessment and Plan Patient alert, awake and oriented. Sitting up in chair. On room air.O2 saturation 97%. No acute respiratory distress.. - Patient Problems (1) Pneumonia involving left lung Current Visit: Yes Status: Acute Plan to address problem: Patient is off the antibiotics. Chest xray reported no acute cardiopulmonary process. Patient afebrile. No leukocytosis. (2) Acute exacerbation of congestive heart failure Current Visit: Yes Status: Acute Plan to address problem: Management as per cardiology. (3) Nephrotic syndrome Current Visit: Yes Status: Acute Plan to address problem: Management as per nephrology. Subjective Date of service: 10/09/18 Principal diagnosis: coffee-ground emesis Interval history: Patient alert, awake and oriented. Sitting up in chair. On room air.O2 saturation 97%. No acute respiratory distress. Objective Vital Signs - 12hr 10/09/18 10/09/18 10/09/18 06:40 08:58 11:07 Temperature 98.0 F Pulse Rate 72 Respiratory 16 Rate Respiratory 18 Rate [Headache] Blood Pressure 125/58 O2 Sat by Pulse 100 97 Oximetry Constitutional: no acute distress, alert Eyes: non-icteric ENT: oropharynx moist Neck: supple, no JVD Effort: mildly labored Ascultation: Bilateral: diminished breath sounds Percussion: Bilateral: not dull Cardiovascular: regular rate and rhythm Gastrointestinal: normoactive bowel sounds, soft, non-tender Integumentary: normal Extremities: no cyanosis, no edema Neurologic: non-focal exam, pupils equal and round, CN II-XII normal Psychiatric: depressed CBC and BMP: 10/07/18 13:11 10/07/18 13:11 ABG, PT/INR, D-dimer: ABG POC ABG pH 7.434 (7.35-7.45) 10/05/18 18:03 POC ABG pCO2 43.4 (35-45) 10/05/18 18:03 POC ABG pO2 57 (80-105) L 10/05/18 18:03 POC ABG HCO3 29.0 (22-26 mml/L) 10/05/18 18:03 POC ABG Total CO2 30 (23-27mmol/L) 10/05/18 18:03 POC ABG O2 Sat 90 10/05/18 18:03 PT/INR, D-dimer PT 12.7 Sec. (12.2-14.9) 09/26/18 Unknown INR 0.90 (0.87-1.13) 09/26/18 Unknown Abnormal lab findings: Abnormal Labs 09/17/18 09/17/18 09/17/18 15:17 15:17 15:17 WBC RBC 3.34 L Hgb 9.1 L Hct 27.9 L MCH 27 L RDW 20.5 H Plt Count Lymph % (Auto) [place] % (Auto) 8.8 H [place] # Seg Neuts % (Manual) Lymphocytes % (Manual) Monocytes % (Manual) Nucleated RBC % Lymphocytes # (Manual) Monocytes # (Manual) APTT 22.2 L POC ABG pO2 Potassium Chloride 107.7 H BUN 37 H Creatinine 2.3 H Glucose Calcium 7.4 L Phosphorus Magnesium 2.60 H ALT Total Creatine Kinase NT-Pro-B Natriuret Pep 992.5 H Serum Total Protein Total Protein 4.1 L Albumin 1.3 L Gamma Globulins PEP Interpretation Urine WBC (Auto) Urine Creatinine Ur Creatinine 24 Hour Ur Total Protein 24 Hr Urine Total Protein Valproic Acid Crossmatch 09/17/18 09/18/18 09/18/18 17:18 05:22 05:22 WBC 4.4 L RBC 3.06 L Hgb 8.5 L Hct 25.5 L MCH RDW 20.0 H Plt Count Lymph % (Auto) 36.5 H [place] % (Auto) 12.3 H [place] # Seg Neuts % (Manual) Lymphocytes % (Manual) Monocytes % (Manual) Nucleated RBC % Lymphocytes # (Manual) Monocytes # (Manual) APTT POC ABG pO2 Potassium Chloride 107.2 H BUN 37 H Creatinine 2.2 H Glucose Calcium 7.4 L Phosphorus Magnesium ALT 6 L Total Creatine Kinase NT-Pro-B Natriuret Pep Serum Total Protein Total Protein 3.9 L Albumin 1.4 L Gamma Globulins PEP Interpretation Urine WBC (Auto) 15.0 H Urine Creatinine Ur Creatinine 24 Hour Ur Total Protein 24 Hr Urine Total Protein Valproic Acid Crossmatch 09/18/18 09/19/18 09/19/18 10:30 05:45 05:45 WBC RBC Hgb Hct MCH RDW Plt Count Lymph % (Auto) [place] % (Auto) [place] # Seg Neuts % (Manual) Lymphocytes % (Manual) Monocytes % (Manual) Nucleated RBC % Lymphocytes # (Manual) Monocytes # (Manual) APTT POC ABG pO2 Potassium Chloride BUN 37 H Creatinine 2.1 H Glucose Calcium 7.3 L Phosphorus Magnesium ALT Total Creatine Kinase NT-Pro-B Natriuret Pep Serum Total Protein 3.4 L Total Protein Albumin 1.2 L Gamma Globulins 0.5 L PEP Interpretation see below H Urine WBC (Auto) Urine Creatinine 147.5 H Ur Creatinine 24 Hour 0.7 L Ur Total Protein 24 Hr 1073.50 H Urine Total Protein 226 H Valproic Acid Crossmatch 09/20/18 09/20/18 09/21/18 04:56 15:15 06:13 WBC RBC 2.84 L Hgb 7.8 L Hct 24.1 L MCH 27 L RDW 19.8 H Plt Count Lymph % (Auto) [place] % (Auto) 12.9 H [place] # Seg Neuts % (Manual) Lymphocytes % (Manual) Monocytes % (Manual) Nucleated RBC % Lymphocytes # (Manual) Monocytes # (Manual) APTT POC ABG pO2 Potassium 5.4 H 5.5 H Chloride 108.2 H BUN 38 H Creatinine 2.4 H Glucose Calcium 7.2 L Phosphorus Magnesium ALT Total Creatine Kinase NT-Pro-B Natriuret Pep Serum Total Protein Total Protein Albumin Gamma Globulins PEP Interpretation Urine WBC (Auto) Urine Creatinine Ur Creatinine 24 Hour Ur Total Protein 24 Hr Urine Total Protein Valproic Acid Crossmatch 09/21/18 09/21/18 09/22/18 06:13 07:00 10:12 WBC RBC Hgb Hct MCH RDW Plt Count Lymph % (Auto) [place] % (Auto) [place] # Seg Neuts % (Manual) Lymphocytes % (Manual) Monocytes % (Manual) Nucleated RBC % Lymphocytes # (Manual) Monocytes # (Manual) APTT POC ABG pO2 Potassium 5.2 H Chloride 108.2 H 111.5 H BUN 39 H 40 H Creatinine 2.7 H 3.1 H Glucose Calcium 7.3 L 7.1 L Phosphorus Magnesium ALT Total Creatine Kinase NT-Pro-B Natriuret Pep Serum Total Protein Total Protein Albumin Gamma Globulins PEP Interpretation Urine WBC (Auto) Urine Creatinine 97.5 H Ur Creatinine 24 Hour Ur Total Protein 24 Hr Urine Total Protein 708 H Valproic Acid Crossmatch 09/23/18 09/25/18 09/25/18 04:40 07:30 07:30 WBC RBC 2.55 L Hgb 6.9 L Hct 21.5 L MCH 27 L RDW 19.5 H Plt Count Lymph % (Auto) [place] % (Auto) 12.2 H [place] # Seg Neuts % (Manual) Lymphocytes % (Manual) Monocytes % (Manual) Nucleated RBC % Lymphocytes # (Manual) Monocytes # (Manual) APTT POC ABG pO2 Potassium Chloride 109.1 H BUN 42 H 33 H Creatinine 3.8 H 4.4 H Glucose 102 H Calcium 7.2 L 7.3 L Phosphorus 5.00 H Magnesium ALT Total Creatine Kinase NT-Pro-B Natriuret Pep Serum Total Protein Total Protein Albumin Gamma Globulins PEP Interpretation Urine WBC (Auto) Urine Creatinine Ur Creatinine 24 Hour Ur Total Protein 24 Hr Urine Total Protein Valproic Acid Crossmatch 09/26/18 09/26/18 09/26/18 07:17 07:17 07:17 WBC RBC Hgb 6.7 L Hct 20.0 L MCH RDW Plt Count Lymph % (Auto) [place] % (Auto) [place] # Seg Neuts % (Manual) Lymphocytes % (Manual) Monocytes % (Manual) Nucleated RBC % Lymphocytes # (Manual) Monocytes # (Manual) APTT POC ABG pO2 Potassium Chloride BUN 24 H Creatinine 4.1 H Glucose Calcium 7.0 L Phosphorus Magnesium ALT Total Creatine Kinase 559 H NT-Pro-B Natriuret Pep Serum Total Protein Total Protein Albumin Gamma Globulins PEP Interpretation Urine WBC (Auto) Urine Creatinine Ur Creatinine 24 Hour Ur Total Protein 24 Hr Urine Total Protein Valproic Acid 13.2 L Crossmatch 09/26/18 09/27/18 09/27/18 Unknown 07:42 07:42 WBC RBC 2.16 L Hgb 6.0 L Hct 18.1 L* MCH RDW 18.9 H Plt Count 130 L Lymph % (Auto) [place] % (Auto) 15.8 H [place] # Seg Neuts % (Manual) Lymphocytes % (Manual) Monocytes % (Manual) Nucleated RBC % Lymphocytes # (Manual) Monocytes # (Manual) APTT 36.7 H POC ABG pO2 Potassium Chloride 108.4 H BUN 26 H Creatinine 4.8 H Glucose Calcium 7.1 L Phosphorus 4.60 H Magnesium ALT Total Creatine Kinase NT-Pro-B Natriuret Pep Serum Total Protein Total Protein Albumin Gamma Globulins PEP Interpretation Urine WBC (Auto) Urine Creatinine Ur Creatinine 24 Hour Ur Total Protein 24 Hr Urine Total Protein Valproic Acid Crossmatch 09/27/18 09/28/18 09/29/18 10:43 04:43 05:07 WBC RBC 3.29 L 3.28 L Hgb 8.9 L 8.9 L Hct 27.2 L D 27.1 L MCH 27 L 27 L RDW 19.3 H 19.3 H Plt Count 130 L 133 L Lymph % (Auto) [place] % (Auto) 15.6 H [place] # 0.9 H Seg Neuts % (Manual) Lymphocytes % (Manual) Monocytes % (Manual) Nucleated RBC % Lymphocytes # (Manual) Monocytes # (Manual) APTT POC ABG pO2 Potassium Chloride BUN Creatinine Glucose Calcium Phosphorus Magnesium ALT Total Creatine Kinase NT-Pro-B Natriuret Pep Serum Total Protein Total Protein Albumin Gamma Globulins PEP Interpretation Urine WBC (Auto) Urine Creatinine Ur Creatinine 24 Hour Ur Total Protein 24 Hr Urine Total Protein Valproic Acid Crossmatch See Detail 09/29/18 10/01/18 10/01/18 05:07 06:16 06:16 WBC RBC 3.18 L Hgb 8.6 L Hct 26.2 L MCH 27 L RDW 19.3 H Plt Count Lymph % (Auto) [place] % (Auto) [place] # Seg Neuts % (Manual) Lymphocytes % (Manual) Monocytes % (Manual) Nucleated RBC % Lymphocytes # (Manual) Monocytes # (Manual) APTT POC ABG pO2 Potassium Chloride BUN 22 H 22 H Creatinine 5.4 H 6.0 H Glucose Calcium 7.1 L 7.1 L Phosphorus Magnesium ALT Total Creatine Kinase NT-Pro-B Natriuret Pep Serum Total Protein Total Protein Albumin Gamma Globulins PEP Interpretation Urine WBC (Auto) Urine Creatinine Ur Creatinine 24 Hour Ur Total Protein 24 Hr Urine Total Protein Valproic Acid Crossmatch 10/05/18 10/05/18 10/05/18 06:50 06:50 18:03 WBC RBC 3.08 L Hgb 8.3 L Hct 25.6 L MCH 27 L RDW 19.0 H Plt Count Lymph % (Auto) [place] % (Auto) [place] # Seg Neuts % (Manual) Lymphocytes % (Manual) Monocytes % (Manual) 11.0 H Nucleated RBC % Lymphocytes # (Manual) 0.9 L Monocytes # (Manual) APTT POC ABG pO2 57 L Potassium Chloride BUN Creatinine 4.9 H Glucose Calcium 7.3 L Phosphorus Magnesium ALT Total Creatine Kinase NT-Pro-B Natriuret Pep Serum Total Protein Total Protein 4.1 L Albumin 1.5 L Gamma Globulins PEP Interpretation Urine WBC (Auto) Urine Creatinine Ur Creatinine 24 Hour Ur Total Protein 24 Hr Urine Total Protein Valproic Acid Crossmatch 10/06/18 10/07/18 10/07/18 06:22 13:11 13:11 WBC RBC 3.04 L 3.36 L Hgb 8.1 L 9.0 L Hct 25.2 L 28.0 L MCH 27 L 27 L RDW 19.2 H 20.0 H Plt Count Lymph % (Auto) [place] % (Auto) [place] # Seg Neuts % (Manual) 71.0 H Lymphocytes % (Manual) 10.0 L Monocytes % (Manual) 14.0 H 18.0 H Nucleated RBC % 2.0 H Lymphocytes # (Manual) 1.0 L 0.7 L Monocytes # (Manual) 1.0 H 1.2 H APTT POC ABG pO2 Potassium Chloride BUN Creatinine 4.9 H Glucose 128 H Calcium 7.4 L Phosphorus Magnesium ALT Total Creatine Kinase NT-Pro-B Natriuret Pep Serum Total Protein Total Protein Albumin Gamma Globulins PEP Interpretation Urine WBC (Auto) Urine Creatinine Ur Creatinine 24 Hour Ur Total Protein 24 Hr Urine Total Protein Valproic Acid Crossmatch Allied health notes reviewed: nursing
--- NOTE | 2018-10-09 13:53 | Event Note ---
Date: 10/09/18 Decisional Capacity Evaluation Today the patient is calm and cooperative during the evaluation. This decisional capacity evaluation is to determine if the patient can refuse a renal biopsy. The patient was asked about general orientation (person, place, and time), her answers were logical. When she was asked generalized questions about her current medical condition she stated, "I have bad kidneys." She was able to state that she may get "sick" if the renal biopsy isn't completed. The patient stated that she felt like the procedure would "hurt" after talking with her. She stated that she refused the biopsy, because she felt like the procedure would be painful. She stated that she is willing to go through with the renal biopsy. She stated, "I need to get the renal biopsy done." Currently, the patient is willing to go through with the renal biopsy and a decisional capacity evaluation wasn't warranted. Staffed with Dr Shae Long.
--- NOTE | 2018-10-09 17:45 | Progress Note ---
Assessment and Plan Assessment and plan: Patient is a 47 yo woman with a history of Obesity, HTN and Schizophrenia who presented to the ER with bilateral leg swelling, SOB and increase in the abdominal girth and weight gain of ~86 pounds in 10 weeks. Patient denies any h/o heart disease or Liver problem. Labs were significant for creatinine of 2.2, Hb 8.5, albumin 1.4 and 3+ protein in the urine. Patient was admitted with provisional diagnosis of Nephrotic syndrome. Nephrology was consulted for further evaluation and recommended Kidney biopsy; which patient refused on multiple occasions so Radiology declined to re-schedule the procedure. Also, During hospital coarse, she was found to have coffee ground emesis and EGD was done on 09/26/18 and showed M-W tear. Her hemoglobin was steadily dropping and she initially refused blood transfusion until Mr. Galeas convinced her to get the blood transfusion and do Hemodialysis which she refuses at times. - Acute kidney injury with ckd and nephrotic syndrome. Commenced hemodialysis on 09/24/2018 Had dialysis today -Nephrotic syndrome. 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 Patient refused several times to do Kidney biospy. will revisit Additional IV dose of Lasix given. - VRE UTI: Possible cystitis. ID recommended treating patient with amoxicillin for 3 days that banding on 09/06/18 -Coffee-ground emesis with Radha Mendez Tear. Status post EGD that showed gastritis and hiatal hernia No more active bleeding -Acute on chronic Blood loss anemia due to above -Medical non-compliance: Counseling provided but doubts patient's comprehension -Hypertensive urgency: Improved -Severe protein calorie malnutrition: Consult placed for Production [employer]ic [employer]. =Right lower extremity thigh pain. Doppler lower extremities bilaterally negative for DVT =Left breast swelling, unknown at present. Need outpatient Mammogram and U/S =Morbid obesity, bmi 55.2: lifestyle modification. BIPAP recommended but refuses =Medical noncompliance. Patient intermittently at times refusing care. Psych/Mik told me she has decision making capacity. =Schizophrenia, Bipolar disorder. Continue current medications.. As above. Psych consulted =Hyperkalemia. Kayexalate. Recheck BMP in the morning. =Sepsis. Maybe from UTI as chest x-ray shows no evidence of pneumonia. Present on admission. Treated with IV antibiotics discontinued. Etiology secondary to pneumonia and UTI. DVT/GI propy Disposition is problematic in this case. We are unable to get outpatient dialysis per case management due to diagnosis of LUCILA. Also the patient is refusing Biopsy which will help with the decision making, Refusing BIPAP ALSO. Will likely need ETHICS CONSULT. Patient unable to be discharged due to Dialysis setup outpatient. Will discuss with Nephrology if we can re-attempt Kidney Biopsy. Poor prognosis based on patients refusal of care History Interval history: Patient seen and examined, Reports improvement today, had dialysis today. agreeable to biopsy Hospitalist Physical - Physical exam Narrative exam: Constitutional: Generalized swelling. anasacar-improved today Head: Normocephalic atraumatic Eyes: Pupils are equal round and reactive to light Nose: No enlarged turbinates, no septal deviation. Mouth: Moist mucous membranes. Neck: Supple no thyromegaly. No bruit. No JVD Heart: Regular rate and rhythm, S1-S2 normal. No rubs murmurs or gallop Lungs: Diminished to auscultation bilaterally. no rales or rhonchi Abdomen: Soft, nontender. Bowel sound are present. Edematous Extremities: 2+ edema, no cyanosis, no clubbing. Neuro: Alert oriented Oriented x3. No focal sensory or motor deficit. Skin: No rashes or hyperpigmented spots Musculoskeletal system: No joint pain or swelling Hematological: No petechia or subcutanous hemorrhages. Lymphatic: No generalized lymphadenopathy Psychiatry: Euthymic. Calm. - Constitutional Vitals: Temp Pulse Resp BP Pulse Ox 97.9 F 82 98 H 134/80 97 10/09/18 17:00 10/09/18 17:00 10/09/18 12:00 10/09/18 17:00 10/09/18 11:07 General appearance: Present: no acute distress, obese Results - Labs CBC & Chem 7: 10/10/18 06:41 10/10/18 06:41 Labs: Laboratory Last Values WBC 6.7 K/mm3 (4.5-11.0) 10/07/18 13:11 RBC 3.36 M/mm3 (3.65-5.03) L 10/07/18 13:11 Hgb 9.0 gm/dl (10.1-14.3) L 10/07/18 13:11 Hct 28.0 % (30.3-42.9) L 10/07/18 13:11 MCV 84 fl (79-97) 10/07/18 13:11 MCH 27 pg (28-32) L 10/07/18 13:11 MCHC 32 % (30-34) 10/07/18 13:11 RDW 20.0 % (13.2-15.2) H 10/07/18 13:11 Plt Count 154 K/mm3 (140-440) 10/07/18 13:11 Lymph % (Auto) 24.2 % (13.4-35.0) 09/29/18 05:07 Burt % (Auto) Aix Architect 10/07/18 13:11 Eos % (Auto) 1.7 % (0.0-4.3) 09/29/18 05:07 Baso % (Auto) 0.3 % (0.0-1.8) 09/29/18 05:07 Lymph # 1.4 K/mm3 (1.2-5.4) 09/29/18 05:07 Burt # 0.9 K/mm3 (0.0-0.8) H 09/29/18 05:07 Eos # 0.1 K/mm3 (0.0-0.4) 09/29/18 05:07 Baso # 0.0 K/mm3 (0.0-0.1) 09/29/18 05:07 Add Manual Diff Complete 10/07/18 13:11 Total Counted 100 10/07/18 13:11 Seg Neutrophils % 58.2 % (40.0-70.0) 09/29/18 05:07 Seg Neuts % (Manual) 70.0 % (40.0-70.0) 10/07/18 13:11 Band Neutrophils % 1.0 % 10/07/18 13:11 Lymphocytes % (Manual) 10.0 % (13.4-35.0) L 10/07/18 13:11 Reactive Lymphs % (Man) 0 % 10/07/18 13:11 Monocytes % (Manual) 18.0 % (0.0-7.3) H 10/07/18 13:11 Eosinophils % (Manual) 0 % (0.0-4.3) 10/07/18 13:11 Basophils % (Manual) 0 % (0.0-1.8) 10/07/18 13:11 Metamyelocytes % 0 % 10/07/18 13:11 Myelocytes % 1.0 % 10/07/18 13:11 Promyelocytes % 0 % 10/07/18 13:11 Blast Cells % 0 % 10/07/18 13:11 Nucleated RBC % 2.0 % (0.0-0.9) H 10/07/18 13:11 Seg Neutrophils # 3.5 K/mm3 (1.8-7.7) 09/29/18 05:07 Seg Neutrophils # Man 4.7 K/mm3 (1.8-7.7) 10/07/18 13:11 Band Neutrophils # 0.1 K/mm3 10/07/18 13:11 Lymphocytes # (Manual) 0.7 K/mm3 (1.2-5.4) L 10/07/18 13:11 Abs React Lymphs (Man) 0.0 K/mm3 10/07/18 13:11 Monocytes # (Manual) 1.2 K/mm3 (0.0-0.8) H 10/07/18 13:11 Eosinophils # (Manual) 0.0 K/mm3 (0.0-0.4) 10/07/18 13:11 Basophils # (Manual) 0.0 K/mm3 (0.0-0.1) 10/07/18 13:11 Metamyelocytes # 0.0 K/mm3 10/07/18 13:11 Myelocytes # 0.1 K/mm3 10/07/18 13:11 Promyelocytes # 0.0 K/mm3 10/07/18 13:11 Blast Cells # 0.0 K/mm3 10/07/18 13:11 WBC Morphology Not Reportable 10/07/18 13:11 Hypersegmented Neuts Not Reportable 10/07/18 13:11 Hyposegmented Neuts Not Reportable 10/07/18 13:11 Hypogranular Neuts Not Reportable 10/07/18 13:11 Smudge Cells Not Reportable 10/07/18 13:11 Toxic Granulation Not Reportable 10/07/18 13:11 Toxic Vacuolation Not Reportable 10/07/18 13:11 Dohle Bodies Not Reportable 10/07/18 13:11 Pelger-Huet Anomaly Not Reportable 10/07/18 13:11 Latasha Rods Not Reportable 10/07/18 13:11 Platelet Estimate Consistent w auto 10/07/18 13:11 Clumped Platelets Not Reportable 10/07/18 13:11 Plt Clumps, EDTA Not Reportable 10/07/18 13:11 Large Platelets Not Reportable 10/07/18 13:11 Giant Platelets Not Reportable 10/07/18 13:11 Platelet Satelliting Not Reportable 10/07/18 13:11 Plt Morphology Comment Not Reportable 10/07/18 13:11 RBC Morphology Not Reportable 10/07/18 13:11 Dimorphic RBCs Not Reportable 10/07/18 13:11 Polychromasia Not Reportable 10/07/18 13:11 Hypochromasia Not Reportable 10/07/18 13:11 Poikilocytosis Not Reportable 10/07/18 13:11 Anisocytosis Not Reportable 10/07/18 13:11 Microcytosis 1+ 10/07/18 13:11 Macrocytosis Not Reportable 10/07/18 13:11 Spherocytes Not Reportable 10/07/18 13:11 Pappenheimer Bodies Not Reportable 10/07/18 13:11 Sickle Cells Not Reportable 10/07/18 13:11 Target Cells Not Reportable 10/07/18 13:11 Tear Drop Cells Not Reportable 10/07/18 13:11 Ovalocytes Not Reportable 10/07/18 13:11 Helmet Cells Not Reportable 10/07/18 13:11 [place] Bodies Not Reportable 10/07/18 13:11 [place] Rings Not Reportable 10/07/18 13:11 [place] Cells Not Reportable 10/07/18 13:11 Bite Cells Not Reportable 10/07/18 13:11 Crenated Cell Not Reportable 10/07/18 13:11 Elliptocytes Not Reportable 10/07/18 13:11 Acanthocytes (Spur) Not Reportable 10/07/18 13:11 Rouleaux Not Reportable 10/07/18 13:11 Hemoglobin C Crystals Not Reportable 10/07/18 13:11 Schistocytes Not Reportable 10/07/18 13:11 Malaria parasites Not Reportable 10/07/18 13:11 Paul Bodies Not Reportable 10/07/18 13:11 Hem Pathologist Commnt No 10/07/18 13:11 PT 12.7 Sec. (12.2-14.9) 09/26/18 Unknown INR 0.90 (0.87-1.13) 09/26/18 Unknown APTT 36.7 Sec. (24.2-36.6) H 09/26/18 Unknown POC ABG pH 7.434 (7.35-7.45) 10/05/18 18:03 POC ABG pCO2 43.4 (35-45) 10/05/18 18:03 POC ABG pO2 57 (80-105) L 10/05/18 18:03 POC ABG HCO3 29.0 (22-26 mml/L) 10/05/18 18:03 POC ABG Total CO2 30 (23-27mmol/L) 10/05/18 18:03 POC ABG O2 Sat 90 10/05/18 18:03 POC ABG Base Excess 5 ((-2) - (+3)mmol/L) 10/05/18 18:03 FiO2 21 % 10/05/18 18:03 Sodium 140 mmol/L (137-145) 10/07/18 13:11 Potassium 4.1 mmol/L (3.6-5.0) 10/07/18 13:11 Chloride 103.6 mmol/L (98-107) 10/07/18 13:11 Carbon Dioxide 26 mmol/L (22-30) 10/07/18 13:11 Anion Gap 15 mmol/L 10/07/18 13:11 BUN 13 mg/dL (7-17) 10/07/18 13:11 Creatinine 4.9 mg/dL (0.7-1.2) H 10/07/18 13:11 Estimated GFR 12 ml/min 10/07/18 13:11 BUN/Creatinine Ratio 3 % 10/07/18 13:11 Glucose 128 mg/dL (65-100) H 10/07/18 13:11 Calcium 7.4 mg/dL (8.4-10.2) L 10/07/18 13:11 Phosphorus 4.60 mg/dL (2.5-4.5) H 09/27/18 07:42 Magnesium 2.60 mg/dL (1.7-2.3) H 09/17/18 15:17 Total Bilirubin < 0.20 mg/dL (0.1-1.2) 10/05/18 06:50 AST 14 units/L (5-40) 10/05/18 06:50 ALT 7 units/L (7-56) 10/05/18 06:50 Alkaline Phosphatase 52 units/L (35-129) 10/05/18 06:50 Total Creatine Kinase 559 units/L (30-135) H 09/26/18 07:17 Troponin T 0.012 ng/mL (0.00-0.029) 09/17/18 15:17 NT-Pro-B Natriuret Pep 992.5 pg/mL (0-450) H 09/17/18 15:17 Serum Total Protein 3.4 g/dL (6.1-8.1) L 09/19/18 05:45 Total Protein 4.1 g/dL (6.3-8.2) L 10/05/18 06:50 Albumin 1.5 g/dL (3.9-5) L 10/05/18 06:50 Albumin/Globulin Ratio 0.6 % 10/05/18 06:50 Pgizn-1-Lkzueoynh 0.3 g/dL (0.2-0.3) 09/19/18 05:45 Rppaf-2-Cfiatkrvy 0.8 g/dL (0.5-0.9) 09/19/18 05:45 Beta Globulins 0.4 g/dL (0.2-0.5) 09/19/18 05:45 Gamma Globulins 0.5 g/dL (0.8-1.7) L 09/19/18 05:45 Abnorm Protein Band 1 see below 09/19/18 05:45 PEP Interpretation see below H 09/19/18 05:45 Amylase 53 units/L (27-131) 09/25/18 13:53 Lipase 48 units/L (13-60) 09/25/18 13:53 HCG, Qual Negative (Negative) 09/25/18 13:53 PTH Intact 46.07 pg/mL (15-65) 09/19/18 05:45 Urine Color Yellow (Yellow) 09/17/18 17:18 Urine Turbidity Cloudy (Clear) 09/17/18 17:18 Urine pH 5.0 (5.0-7.0) 09/17/18 17:18 Ur Specific [place] 1.029 (1.003-1.030) 09/17/18 17:18 Urine Protein >500 mg/dL (Negative) 09/17/18 17:18 Urine Glucose (UA) Neg mg/dL (Negative) 09/17/18 17:18 Urine Ketones Tr mg/dL (Negative) 09/17/18 17:18 Urine Blood Sm (Negative) 09/17/18 17:18 Urine Nitrite Neg (Negative) 09/17/18 17:18 Urine Bilirubin Neg (Negative) 09/17/18 17:18 Urine Urobilinogen < 2.0 mg/dL (<2.0) 09/17/18 17:18 Ur Leukocyte Esterase Neg (Negative) 09/17/18 17:18 Urine WBC (Auto) 15.0 /HPF (0.0-6.0) H 09/17/18 17:18 Urine RBC (Auto) 13.0 /HPF (0.0-6.0) 09/17/18 17:18 U Epithel Cells (Auto) 6.0 /HPF (0-13.0) 09/17/18 17:18 Urine Bacteria (Auto) 2+ /HPF (Negative) 09/17/18 17:18 Urine WBC Clumps 2+ /HPF 09/17/18 17:18 Hyaline Casts 6 /LPF 09/17/18 17:18 Urine Mucus Few /HPF 09/17/18 17:18 Urine Yeast (Budding) 2+ /HPF 09/17/18 17:18 Urine Eosinophils None seen (None Seen) 09/18/18 10:30 Urine Total Volume 475 ml 09/18/18 10:30 Urine Creatinine 97.5 mg/dL (0.1-20.0) H 09/21/18 07:00 Ur Creatinine 24 Hour 0.7 (0.8-2.8) L 09/18/18 10:30 Ur Total Protein 24 Hr 1073.50 mg/dL (2-200) H 09/18/18 10:30 Protein/Creatinin Ratio 7.26 09/21/18 07:00 Urine Sodium 53 mmol/L 09/21/18 07:00 Urine Urea Nitrogen 467 09/18/18 10:30 Ur Urea Nitrogen 24 Hr 2.22 09/18/18 10:30 Urine Total Protein 708 mg/dL (5-11.8) H 09/21/18 07:00 Urine Opiates Screen Presumptive negative 09/17/18 17:18 Urine Methadone Screen Presumptive negative 09/17/18 17:18 Ur Barbiturates Screen Presumptive negative 09/17/18 17:18 Valproic Acid 13.2 ug/mL (50-100) L 09/26/18 07:17 Ur Phencyclidine Scrn Presumptive negative 09/17/18 17:18 Ur Amphetamines Screen Presumptive negative 09/17/18 17:18 U Benzodiazepines Scrn Presumptive negative 09/17/18 17:18 Urine Cocaine Screen Presumptive negative 09/17/18 17:18 U Marijuana (THC) Screen Presumptive negative 09/17/18 17:18 Drugs of Abuse Note Disclamer 09/17/18 17:18 BI Screen Negative (Negative) 09/19/18 05:45 Proteinase 3 (PR3) Ab <1.0 AI (<1.0) 09/19/18 05:45 Myeloperoxidase Ab <1.0 AI (<1.0) 09/19/18 05:45 Glomerular Base Mem IgG See scanned result 09/19/18 05:45 Complement C3 143 mg/dL (83-193) 09/19/18 05:45 Complement C4 56 mg/dL (15-57) 09/19/18 05:45 Hepatitis A IgM Ab Non-reactive (NonReactive) 09/19/18 05:45 Hep Bs Antigen Non-reactive (Negative) 09/19/18 05:45 Hep B Core IgM Ab Non-reactive (NonReactive) 09/19/18 05:45 Hepatitis C Antibody Non-reactive (NonReactive) 09/19/18 05:45 HIV 1&2 Antibody Rapid Non react (Non React) 09/27/18 07:42 HIV P24 Antigen Non react (Non React) 09/27/18 07:42 Blood Type O POSITIVE 09/27/18 10:43 Antibody Screen Negative 09/27/18 10:43 Crossmatch See Detail 09/27/18 10:43 Active Medications - Current Medications Current Medications: Generic Name Dose Route Start Last Admin Trade Name Freq PRN Reason Stop Dose Admin Acetaminophen 650 mg 09/18/18 02:40 09/27/18 05:36 Tylenol PO 650 mg Q4H PRN Administration Pain MILD(1-3)/Fever >100.5/MENDOZA Atorvastatin Calcium 40 mg 09/18/18 22:00 10/08/18 22:05 Lipitor PO 40 mg QHS LUZ Administration Diphenhydramine HCl 50 mg 09/18/18 22:00 10/08/18 22:05 Benadryl PO 50 mg HS LUZ Administration Divalproex Sodium 500 mg 09/18/18 10:00 10/09/18 13:[address] PO 500 mg BID LUZ Administration Enoxaparin Sodium 30 mg 09/20/18 22:00 10/08/18 22:05 Lovenox SUB-Q 30 mg QDAY@2200 LUZ Administration Epoetin Luis 20,000 unit 09/26/18 12:23 10/08/18 13:15 Procrit SUB-Q 20,000 unit KUSHAL PRN Administration hemodialysis Furosemide 80 mg 09/29/18 06:00 10/09/18 06:41 Lasix PO 80 mg 0600,1800 LUZ Administration Haloperidol 5 mg 09/25/18 22:00 10/08/18 22:05 Haldol PO 5 mg HS LUZ Administration Hydralazine HCl 10 mg 09/22/18 06:28 09/22/18 12:12 Apresoline IV 10 mg Q4H PRN Administration systolic b/p >165 Hydromorphone HCl 0.5 mg 09/18/18 02:40 Dilaudid IV Q3H PRN Pain , Severe (7-10) Sodium Chloride 100 mls @ 999 mls/hr 10/08/18 09:00 Nacl 0.9% IV KUSHAL PRN Hypotension Losartan Potassium 50 mg 10/04/18 10:00 10/09/18 13:21 Cozaar PO Not [facility] Metoprolol Tartrate 50 mg 10/07/18 13:00 10/09/18 13:20 Lopressor PO 50 mg BID LUZ Administration Ondansetron HCl 4 mg 09/18/18 02:40 10/07/18 03:15 Zofran IV 4 mg Q8H PRN Administration Nausea And Vomiting Oxycodone/Acetaminophen 1 tab 09/18/18 02:40 10/08/18 22:06 Percocet 5/325 PO 1 tab Q6H PRN Administration Pain, Moderate (4-6) Pantoprazole Sodium 40 mg 10/02/18 10:00 10/09/18 13:20 Protonix PO 40 mg DAILY LUZ Administration Sodium Chloride 10 ml 09/18/18 10:00 10/09/18 13:21 Sodium Chloride Flush Syringe 10 Ml IV 10 ml BID LUZ Administration Sodium Chloride 10 ml 09/18/18 02:40 Sodium Chloride Flush Syringe 10 Ml IV PRN PRN LINE FLUSH Nutrition/Malnutrition Assess - Dietary Evaluation Nutrition/Malnutrition Findings: Nutrition Notes Start: 09/24/18 15:36 Freq: Status: Active Protocol: Document 10/09/18 14:32 TW (Rec: 10/09/18 14:49 TW [id number]) Co-Sign 10/09/18 14:32 LP Nutrition Notes Initial or Follow up Reassessment Current Diagnosis Sepsis,Respiratory Failure Other Pertinent Diagnosis renal failure on HD, nephrotic syndrome, anemia Current Diet GI Soft Labs/Tests Cr 4.9 Pertinent Medications Lasix Height 5 ft 6 in Weight 141.7 kg [place] Body Weight (kg) 59.09 BMI 50.4 Intake Prior to Admission Excellent Weight Status Morbidly Obese Subjective/Other Information F/U for intakes and renal education. 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 Discussed with pt importance of HD and renal appropriate diet. Percent of energy/protein needs met: 100%/100% Burn Absent Trauma Absent #2 Nutrition Diagnosis Food and nutrition-related knowledge deficit Etiology lack of prior renal education As Evidenced by Signs and Symptoms pt reporting not knowing about renal disease Is patient on ventilator? No Is Patient Ambulatory and/or Out of Bed Yes REE-([facility] [place]-ambulatory/OOB) [ 2695.875 [id number]] Kcal/Kg value to use for calculation 15 Approximate Energy Requirements Using 2126 kcal/Kg Calculation Used for Recommendations Kcal/kg Additional Notes Protein Needs: 71-77g (1.2-1. 3g/kg IBW) Fluid Needs: 1 ml/kcal Nutrition Intervention Change Diet Order: Continue GI soft Teaching Recipient Patient Learning Readiness Fair Teaching Methods Discussion,Handout Response to Teaching Reinforcement needed Education Handouts Provided Importance of HD, Renal diet Barriers to Learning Motivation RD phone number provided Yes Patient aware of follow up options Yes Goal #1 Continue to meet at least 75% of calorie and protein needs via PO intakes Anticipated Discharge Needs: Unable to determine at this time Revisit per MD consult or patient Sign Off request:
[2018-10-09] MEDS: PERCOCET 5/325 PO PRN (22:03)
[2018-10-09] MEDS: BENADRYL PO SCH (22:04)
[2018-10-09] MEDS: HALDOL PO SCH (22:04)
[2018-10-10] MEDS: LASIX PO SCH ×3 (01:47→18:07)
[2018-10-10 07:46] LABS: Hematocrit 20.4 % (30.3-42.9); Hemoglobin 6.6 gm/dl (10.1-14.3); Mean Corpuscular HGB Conc 32 % (30-34); Mean Corpuscular Volume 85 fl (79-97); Platelet Count 124 K/mm3 (140-440)
[2018-10-10 07:51] LABS: Red Cell Distribution Width 20.3 % (13.2-15.2)
[2018-10-10] MEDS: SODIUM CHLORIDE FLUSH SYRINGE 10 ML IV SCH (09:28)
--- NOTE | 2018-10-10 09:30 | Progress Note ---
Assessment and Plan 1. Acute kidney injury superimposed on CKD: LUCILA likely related Nephrotic syndrome. Chronicity of the CKD or LUCILA is unknown. Suspect ESRD and need for custodial hemodialysis. Patient was started on hemodialysis on 09/24/2018 due to worsening renal function, anasarca and suspected pulmonary edema. Last dialyzed yesterday. Patient has been refusing HD / Isolated UF intermittently. HD today. Renal prognosis appears to be poor at this time. 2. Nephrotic syndrome: Possible causes include but not limited to FSGS, Minimal change, Membranous and Lupus nephritis. Complements, BI, ANCA, SPEP, GBM Ab, Hepatitis panel and HIV are negative. Unable to give definitive treatment due to lack of pathological diagnosis. Although she refused for Kidney biospy on several times she is willing to get it done. Patient verbalized understanding regarding the indications, benefits and risks involved in kidney biopsy. Kidney biopsy today. Lovenox was held for kidney biopsy. Restart. Continue ARB and Statin. 3. FEN: Volume overload, UF with HD. On Lasix. Hyperkalemia, improved. 4. VRE bacteriuria. 5. HTN: Monitor BP. 6. Anemia: GI bleed. S/p PRBC. Epogen with HD. 7. Schizophrenia. 8. Medical non-compliance. Subjective Date of service: 10/10/18 Principal diagnosis: coffee-ground emesis Interval history: Patient was seen and examined at the bedside. Doing ok. Objective - Vital Signs Vital signs: Vital Signs - 12hr 10/09/18 10/09/18 10/09/18 22:03 22:44 23:03 Temperature 98.2 F Pulse Rate 77 Respiratory 18 18 18 Rate Blood Pressure 135/83 O2 Sat by Pulse 99 Oximetry 10/10/18 10/10/18 06:00 06:03 Temperature 98.3 F Pulse Rate 76 Respiratory 20 Rate Blood Pressure 124/57 O2 Sat by Pulse 97 Oximetry - General Appearance General appearance: well-developed, well-nourished, appears stated age, obese, other (not in distress, right IJ tunnel catheter) EENT: ATNC, PERRL, hearing intact, vision intact Neck: supple Respiratory: Present: Clear to Ascultation Cardiology: regular, S1S2, no murmurs Gastrointestinal: normoactive bowel sounds, no tenderness, no distended, obese Integumentary: warm and dry Neurologic: no focal deficit, no asterixis, alert and oriented x3 Musculoskeletal: other (2+ edema of both LEs noted) - Lab 10/10/18 06:41 10/10/18 06:41 Most recent lab results Calcium 7.4 mg/dL (8.4-10.2) L 10/07/18 13:11 Phosphorus 4.60 mg/dL (2.5-4.5) H 09/27/18 07:42 Magnesium 2.60 mg/dL (1.7-2.3) H 09/17/18 15:17 Urine Creatinine 97.5 mg/dL (0.1-20.0) H 09/21/18 07:00 Ur Total Protein 24 Hr 1073.50 mg/dL (2-200) H 09/18/18 10:30 Urine Sodium 53 mmol/L 09/21/18 07:00 Urine Total Protein 708 mg/dL (5-11.8) H 09/21/18 07:00 Medications & Allergies - Medications Allergies/Adverse Reactions: Allergies No Known Allergies Allergy (Unverified 09/17/18 15:05) Home Medications: Home Medications Medication Instructions Recorded Confirmed Last Taken Type Divalproex Sodium [Depakote] 500 mg PO BID 09/17/18 09/17/18 Unknown History Haldol (Nf) 10 mg PO QHS 09/17/18 10/06/18 Unknown History Invega Sustenna 156 mg IM QMONTH 09/17/18 10/06/18 Unknown History diphenhydrAMINE [Benadryl CAP] 50 mg PO HS 09/17/18 09/17/18 Unknown History Active Medications: Generic Name Dose Route Start Last Admin Trade Name Freq PRN Reason Stop Dose Admin Acetaminophen 650 mg 09/18/18 02:40 09/27/18 05:36 Tylenol PO 650 mg Q4H PRN Administration Pain MILD(1-3)/Fever >100.5/MENDOZA Atorvastatin Calcium 40 mg 09/18/18 22:00 10/09/18 22:03 Lipitor PO 40 mg QHS LUZ Administration Diphenhydramine HCl 50 mg 09/18/18 22:00 10/09/18 22:04 Benadryl PO 50 mg HS LUZ Administration Divalproex Sodium 500 mg 09/18/18 10:00 10/09/18 22:[address] PO 500 mg BID LUZ Administration Epoetin Luis 20,000 unit 09/26/18 12:23 10/08/18 13:15 Procrit SUB-Q 20,000 unit KUSHAL PRN Administration hemodialysis Furosemide 80 mg 09/29/18 06:00 10/10/18 05:12 Lasix PO 80 mg 0600,1800 LUZ Administration Haloperidol 5 mg 09/25/18 22:00 10/09/18 22:04 Haldol PO 5 mg HS LUZ Administration Hydralazine HCl 10 mg 09/22/18 06:28 09/22/18 12:12 Apresoline IV 10 mg Q4H PRN Administration systolic b/p >165 Hydromorphone HCl 0.5 mg 09/18/18 02:40 Dilaudid IV Q3H PRN Pain , Severe (7-10) Sodium Chloride 100 mls @ 999 mls/hr 10/08/18 09:00 Nacl 0.9% IV KUSHAL PRN Hypotension Losartan Potassium 50 mg 10/04/18 10:00 10/09/18 13:21 Cozaar PO Not Given QDAY LUZ Metoprolol Tartrate 50 mg 10/07/18 13:00 10/09/18 22:03 Lopressor PO 50 mg BID LUZ Administration Ondansetron HCl 4 mg 09/18/18 02:40 10/07/18 03:15 Zofran IV 4 mg Q8H PRN Administration Nausea And Vomiting Oxycodone/Acetaminophen 1 tab 09/18/18 02:40 10/09/18 22:03 Percocet 5/325 PO 1 tab Q6H PRN Administration Pain, Moderate (4-6) Pantoprazole Sodium 40 mg 10/02/18 10:00 10/09/18 13:20 Protonix PO 40 mg DAILY LUZ Administration Sodium Chloride 10 ml 09/18/18 10:00 10/10/18 09:28 Sodium Chloride Flush Syringe 10 Ml IV 10 ml BID LUZ Administration Sodium Chloride 10 ml 09/18/18 02:40 Sodium Chloride Flush Syringe 10 Ml IV PRN PRN LINE FLUSH
[2018-10-10] MEDS ORDERED: NACL 0.9% 500 ML 500 ML IV NR (09:32)
[2018-10-10] MEDS ORDERED: NACL 0.9% 100 ML IV PRN (09:32)
[2018-10-10 09:49] LABS: Calcium 6.8 mg/dL (8.4-10.2)
[2018-10-10] MEDS: LOPRESSOR PO SCH ×2 (10:00→21:42)
[2018-10-10] MEDS: COZAAR PO SCH (10:00)
[2018-10-10] MEDS: PROTONIX PO SCH (10:00)
[2018-10-10 10:47] LABS: INR 0.96 (0.87-1.13)
--- NOTE | 2018-10-10 11:05 | Progress Note ---
Assessment and Plan Patient alert, awake . On room air.O2 saturation 96%. No acute respiratory distress.Patient has CT guided kidney biopsy to day. - Patient Problems (1) Pneumonia involving left lung Current Visit: Yes Status: Acute Plan to address problem: Patient is off the antibiotics. Chest xray reported no acute cardiopulmonary process. Patient afebrile. No leukocytosis. (2) Acute exacerbation of congestive heart failure Current Visit: Yes Status: Acute Plan to address problem: Management as per cardiology. (3) Nephrotic syndrome Current Visit: Yes Status: Acute Plan to address problem: Management as per nephrology. Patient has CT guided Right Kidney biopsy. Subjective Date of service: 10/10/18 Principal diagnosis: coffee-ground emesis Interval history: Patient alert, awake . On room air.O2 saturation 96%. No acute respiratory distress.Patient has CT guided kidney biopsy to day. Objective Vital Signs - 12hr 10/10/18 10/10/18 10/10/18 06:00 06:03 10:20 Temperature 98.3 F 97.9 F Pulse Rate 76 70 Respiratory 20 20 Rate Blood Pressure 124/57 O2 Sat by Pulse 97 98 Oximetry Constitutional: no acute distress, alert Eyes: non-icteric ENT: oropharynx moist Neck: supple, no JVD Effort: mildly labored Ascultation: Bilateral: diminished breath sounds Percussion: Bilateral: not dull Cardiovascular: regular rate and rhythm Gastrointestinal: normoactive bowel sounds, soft, non-tender Integumentary: normal Extremities: no cyanosis, no edema Neurologic: non-focal exam, pupils equal and round, CN II-XII normal Psychiatric: depressed CBC and BMP: 10/10/18 06:41 10/10/18 06:41 ABG, PT/INR, D-dimer: ABG POC ABG pH 7.434 (7.35-7.45) 10/05/18 18:03 POC ABG pCO2 43.4 (35-45) 10/05/18 18:03 POC ABG pO2 57 (80-105) L 10/05/18 18:03 POC ABG HCO3 29.0 (22-26 mml/L) 10/05/18 18:03 POC ABG Total CO2 30 (23-27mmol/L) 10/05/18 18:03 POC ABG O2 Sat 90 03/22/19 18:03 PT/INR, D-dimer PT 13.4 Sec. (12.2-14.9) 10/10/18 09:01 INR 0.96 (0.87-1.13) 10/10/18 09:01 Abnormal lab findings: Abnormal Labs 09/17/18 09/17/18 09/17/18 15:17 15:17 15:17 WBC RBC 3.34 L Hgb 9.1 L Hct 27.9 L MCH 27 L RDW 20.5 H Plt Count Lymph % (Auto) Levy % (Auto) 8.8 H Levy # Seg Neuts % (Manual) Lymphocytes % (Manual) Monocytes % (Manual) Nucleated RBC % Lymphocytes # (Manual) Monocytes # (Manual) APTT 22.2 L POC ABG pO2 Potassium Chloride 107.7 H BUN 37 H Creatinine 2.3 H Glucose Calcium 7.4 L Phosphorus Magnesium 2.60 H ALT Total Creatine Kinase NT-Pro-B Natriuret Pep 992.5 H Serum Total Protein Total Protein 4.1 L Albumin 1.3 L Gamma Globulins PEP Interpretation Urine WBC (Auto) Urine Creatinine Ur Creatinine 24 Hour Ur Total Protein 24 Hr Urine Total Protein Valproic Acid Crossmatch 09/17/18 09/18/18 09/18/18 17:18 05:22 05:22 WBC 4.4 L RBC 3.06 L Hgb 8.5 L Hct 25.5 L MCH RDW 20.0 H Plt Count Lymph % (Auto) 36.5 H Levy % (Auto) 12.3 H Levy # Seg Neuts % (Manual) Lymphocytes % (Manual) Monocytes % (Manual) Nucleated RBC % Lymphocytes # (Manual) Monocytes # (Manual) APTT POC ABG pO2 Potassium Chloride 107.2 H BUN 37 H Creatinine 2.2 H Glucose Calcium 7.4 L Phosphorus Magnesium ALT 6 L Total Creatine Kinase NT-Pro-B Natriuret Pep Serum Total Protein Total Protein 3.9 L Albumin 1.4 L Gamma Globulins PEP Interpretation Urine WBC (Auto) 15.0 H Urine Creatinine Ur Creatinine 24 Hour Ur Total Protein 24 Hr Urine Total Protein Valproic Acid Crossmatch 09/18/18 09/19/18 09/19/18 10:30 05:45 05:45 WBC RBC Hgb Hct MCH RDW Plt Count Lymph % (Auto) Levy % (Auto) Levy # Seg Neuts % (Manual) Lymphocytes % (Manual) Monocytes % (Manual) Nucleated RBC % Lymphocytes # (Manual) Monocytes # (Manual) APTT POC ABG pO2 Potassium Chloride BUN 37 H Creatinine 2.1 H Glucose Calcium 7.3 L Phosphorus Magnesium ALT Total Creatine Kinase NT-Pro-B Natriuret Pep Serum Total Protein 3.4 L Total Protein Albumin 1.2 L Gamma Globulins 0.5 L PEP Interpretation see below H Urine WBC (Auto) Urine Creatinine 147.5 H Ur Creatinine 24 Hour 0.7 L Ur Total Protein 24 Hr 1073.50 H Urine Total Protein 226 H Valproic Acid Crossmatch 09/20/18 09/20/18 09/21/18 04:56 15:15 06:13 WBC RBC 2.84 L Hgb 7.8 L Hct 24.1 L MCH 27 L RDW 19.8 H Plt Count Lymph % (Auto) Levy % (Auto) 12.9 H Levy # Seg Neuts % (Manual) Lymphocytes % (Manual) Monocytes % (Manual) Nucleated RBC % Lymphocytes # (Manual) Monocytes # (Manual) APTT POC ABG pO2 Potassium 5.4 H 5.5 H Chloride 108.2 H BUN 38 H Creatinine 2.4 H Glucose Calcium 7.2 L Phosphorus Magnesium ALT Total Creatine Kinase NT-Pro-B Natriuret Pep Serum Total Protein Total Protein Albumin Gamma Globulins PEP Interpretation Urine WBC (Auto) Urine Creatinine Ur Creatinine 24 Hour Ur Total Protein 24 Hr Urine Total Protein Valproic Acid Crossmatch 09/21/18 09/21/18 09/22/18 06:13 07:00 10:12 WBC RBC Hgb Hct MCH RDW Plt Count Lymph % (Auto) Levy % (Auto) Levy # Seg Neuts % (Manual) Lymphocytes % (Manual) Monocytes % (Manual) Nucleated RBC % Lymphocytes # (Manual) Monocytes # (Manual) APTT POC ABG pO2 Potassium 5.2 H Chloride 108.2 H 111.5 H BUN 39 H 40 H Creatinine 2.7 H 3.1 H Glucose Calcium 7.3 L 7.1 L Phosphorus Magnesium ALT Total Creatine Kinase NT-Pro-B Natriuret Pep Serum Total Protein Total Protein Albumin Gamma Globulins PEP Interpretation Urine WBC (Auto) Urine Creatinine 97.5 H Ur Creatinine 24 Hour Ur Total Protein 24 Hr Urine Total Protein 708 H Valproic Acid Crossmatch 09/23/18 09/25/18 09/25/18 04:40 07:30 07:30 WBC RBC 2.55 L Hgb 6.9 L Hct 21.5 L MCH 27 L RDW 19.5 H Plt Count Lymph % (Auto) Levy % (Auto) 12.2 H Levy # Seg Neuts % (Manual) Lymphocytes % (Manual) Monocytes % (Manual) Nucleated RBC % Lymphocytes # (Manual) Monocytes # (Manual) APTT POC ABG pO2 Potassium Chloride 109.1 H BUN 42 H 33 H Creatinine 3.8 H 4.4 H Glucose 102 H Calcium 7.2 L 7.3 L Phosphorus 5.00 H Magnesium ALT Total Creatine Kinase NT-Pro-B Natriuret Pep Serum Total Protein Total Protein Albumin Gamma Globulins PEP Interpretation Urine WBC (Auto) Urine Creatinine Ur Creatinine 24 Hour Ur Total Protein 24 Hr Urine Total Protein Valproic Acid Crossmatch 09/26/18 09/26/18 09/26/18 07:17 07:17 07:17 WBC RBC Hgb 6.7 L Hct 20.0 L MCH RDW Plt Count Lymph % (Auto) Levy % (Auto) Levy # Seg Neuts % (Manual) Lymphocytes % (Manual) Monocytes % (Manual) Nucleated RBC % Lymphocytes # (Manual) Monocytes # (Manual) APTT POC ABG pO2 Potassium Chloride BUN 24 H Creatinine 4.1 H Glucose Calcium 7.0 L Phosphorus Magnesium ALT Total Creatine Kinase 559 H NT-Pro-B Natriuret Pep Serum Total Protein Total Protein Albumin Gamma Globulins PEP Interpretation Urine WBC (Auto) Urine Creatinine Ur Creatinine 24 Hour Ur Total Protein 24 Hr Urine Total Protein Valproic Acid 13.2 L Crossmatch 09/26/18 09/27/18 09/27/18 Unknown 07:42 07:42 WBC RBC 2.16 L Hgb 6.0 L Hct 18.1 L* MCH RDW 18.9 H Plt Count 130 L Lymph % (Auto) Levy % (Auto) 15.8 H Levy # Seg Neuts % (Manual) Lymphocytes % (Manual) Monocytes % (Manual) Nucleated RBC % Lymphocytes # (Manual) Monocytes # (Manual) APTT 36.7 H POC ABG pO2 Potassium Chloride 108.4 H BUN 26 H Creatinine 4.8 H Glucose Calcium 7.1 L Phosphorus 4.60 H Magnesium ALT Total Creatine Kinase NT-Pro-B Natriuret Pep Serum Total Protein Total Protein Albumin Gamma Globulins PEP Interpretation Urine WBC (Auto) Urine Creatinine Ur Creatinine 24 Hour Ur Total Protein 24 Hr Urine Total Protein Valproic Acid Crossmatch 09/27/18 09/28/18 09/29/18 10:43 04:43 05:07 WBC RBC 3.29 L 3.28 L Hgb 8.9 L 8.9 L Hct 27.2 L D 27.1 L MCH 27 L 27 L RDW 19.3 H 19.3 H Plt Count 130 L 133 L Lymph % (Auto) Levy % (Auto) 15.6 H Levy # 0.9 H Seg Neuts % (Manual) Lymphocytes % (Manual) Monocytes % (Manual) Nucleated RBC % Lymphocytes # (Manual) Monocytes # (Manual) APTT POC ABG pO2 Potassium Chloride BUN Creatinine Glucose Calcium Phosphorus Magnesium ALT Total Creatine Kinase NT-Pro-B Natriuret Pep Serum Total Protein Total Protein Albumin Gamma Globulins PEP Interpretation Urine WBC (Auto) Urine Creatinine Ur Creatinine 24 Hour Ur Total Protein 24 Hr Urine Total Protein Valproic Acid Crossmatch See Detail 09/29/18 10/01/18 10/01/18 05:07 06:16 06:16 WBC RBC 3.18 L Hgb 8.6 L Hct 26.2 L MCH 27 L RDW 19.3 H Plt Count Lymph % (Auto) Levy % (Auto) Levy # Seg Neuts % (Manual) Lymphocytes % (Manual) Monocytes % (Manual) Nucleated RBC % Lymphocytes # (Manual) Monocytes # (Manual) APTT POC ABG pO2 Potassium Chloride BUN 22 H 22 H Creatinine 5.4 H 6.0 H Glucose Calcium 7.1 L 7.1 L Phosphorus Magnesium ALT Total Creatine Kinase NT-Pro-B Natriuret Pep Serum Total Protein Total Protein Albumin Gamma Globulins PEP Interpretation Urine WBC (Auto) Urine Creatinine Ur Creatinine 24 Hour Ur Total Protein 24 Hr Urine Total Protein Valproic Acid Crossmatch 10/05/18 10/05/18 10/05/18 06:50 06:50 18:03 WBC RBC 3.08 L Hgb 8.3 L Hct 25.6 L MCH 27 L RDW 19.0 H Plt Count Lymph % (Auto) Levy % (Auto) Levy # Seg Neuts % (Manual) Lymphocytes % (Manual) Monocytes % (Manual) 11.0 H Nucleated RBC % Lymphocytes # (Manual) 0.9 L Monocytes # (Manual) APTT POC ABG pO2 57 L Potassium Chloride BUN Creatinine 4.9 H Glucose Calcium 7.3 L Phosphorus Magnesium ALT Total Creatine Kinase NT-Pro-B Natriuret Pep Serum Total Protein Total Protein 4.1 L Albumin 1.5 L Gamma Globulins PEP Interpretation Urine WBC (Auto) Urine Creatinine Ur Creatinine 24 Hour Ur Total Protein 24 Hr Urine Total Protein Valproic Acid Crossmatch 10/06/18 10/07/18 10/07/18 06:22 13:11 13:11 WBC RBC 3.04 L 3.36 L Hgb 8.1 L 9.0 L Hct 25.2 L 28.0 L MCH 27 L 27 L RDW 19.2 H 20.0 H Plt Count Lymph % (Auto) Levy % (Auto) Levy # Seg Neuts % (Manual) 71.0 H Lymphocytes % (Manual) 10.0 L Monocytes % (Manual) 14.0 H 18.0 H Nucleated RBC % 2.0 H Lymphocytes # (Manual) 1.0 L 0.7 L Monocytes # (Manual) 1.0 H 1.2 H APTT POC ABG pO2 Potassium Chloride BUN Creatinine 4.9 H Glucose 128 H Calcium 7.4 L Phosphorus Magnesium ALT Total Creatine Kinase NT-Pro-B Natriuret Pep Serum Total Protein Total Protein Albumin Gamma Globulins PEP Interpretation Urine WBC (Auto) Urine Creatinine Ur Creatinine 24 Hour Ur Total Protein 24 Hr Urine Total Protein Valproic Acid Crossmatch 10/10/18 10/10/18 06:41 06:41 WBC RBC 2.40 L Hgb 6.6 L Hct 20.4 L D MCH RDW 20.3 H Plt Count 124 L Lymph % (Auto) Levy % (Auto) Levy # Seg Neuts % (Manual) Lymphocytes % (Manual) Monocytes % (Manual) Nucleated RBC % Lymphocytes # (Manual) Monocytes # (Manual) APTT POC ABG pO2 Potassium Chloride BUN 18 H Creatinine 5.6 H Glucose Calcium 6.8 L Phosphorus Magnesium ALT Total Creatine Kinase NT-Pro-B Natriuret Pep Serum Total Protein Total Protein Albumin Gamma Globulins PEP Interpretation Urine WBC (Auto) Urine Creatinine Ur Creatinine 24 Hour Ur Total Protein 24 Hr Urine Total Protein Valproic Acid Crossmatch Allied health notes reviewed: nursing
[2018-10-10] MEDS ORDERED: SUBLIMAZE IV ONE (11:14)
[2018-10-10] MEDS ORDERED: VERSED IV ONE ×2 (11:14→11:33)
[2018-10-10] MEDS ORDERED: SUBLIMAZE ONE (11:33)
--- NOTE | 2018-10-10 13:44 | Cat Scan Report ---
CT BIOPSY RENAL RIGHT History: Nephrotic syndrome, proteinuria. Description of procedure: Informed consent was obtained. Sterile technique was utilized. Moderate sedation was accomplished with Versed and fentanyl. Independent cardiorespiratory monitoring by RN. The patient was sedated for 15 minutes. Intra-observer time was [address] guidance, a 17-gauge introducer needle was advanced to the inferior pole of the left kidney. 2 separate 1.3 cm 18-gauge core biopsies were obtained for pathologic analysis. Followup scan demonstrates no evidence for hemorrhage. No complications. Impression: Successful CT guided biopsy at the inferior pole of the right kidney.
--- NOTE | 2018-10-10 16:01 | Progress Note ---
Assessment and Plan Assessment and plan: Patient is a 47 yo woman with a history of Obesity, HTN and Schizophrenia who presented to the ER with bilateral leg swelling, SOB and increase in the abdominal girth and weight gain of ~86 pounds in 10 weeks. Patient denies any h/o heart disease or Liver problem. Labs were significant for creatinine of 2.2, Hb 8.5, albumin 1.4 and 3+ protein in the urine. Patient was admitted with provisional diagnosis of Nephrotic syndrome. Nephrology was consulted for further evaluation and recommended Kidney biopsy; which patient refused on multiple occasions so Radiology declined to re-schedule the procedure. Also, During hospital coarse, she was found to have coffee ground emesis and EGD was done on 09/26/18 and showed M-W tear. Her hemoglobin was steadily dropping and she initially refused blood transfusion until Mr. Galeas convinced her to get the blood transfusion and do Hemodialysis which she refuses at times. 09/26/18 EGD Pre-op diagnosis: gi bleed Post-op diagnosis: same Findings: EGD: large hiatal hernia - m-w tear with pigmented area jut above g-e junction - mild gastritis - negative other Procedure: EGD =Nephrotic syndrome. Urine protein quantification pending. Immunology tests included an SPEP, GBM, Ab, BI, ANCA and complements remains negative. Renal ultrasound negative. Patient unfortunately refused kidney biopsy initially but none is agreeable to it. =ARF, vasomotor nephropathy, poa: Continues on hemodialysis workup for etiology pending =Coffee-ground emesis with Radha Mendez Tear. GI consulted status post 3 units packed red blood cell additional transfusion ordered today. =Acute on chronic Blood loss anemia due to above =Right lower extremity thigh pain. Doppler lower extremities bilaterally negative for DVT =Left breast swelling, unknown at present. Need outpatient Mammogram and U/S =Morbid obesity, bmi 50.4: lifestyle modification =Medical noncompliance. Patient intermittently at times refusing care. Psych/Mik told me she has decision making capacity. =Schizophrenia, Bipolar disorder. Continue current medications.. As above. Psych consulted =Hyperkalemia. Kayexalate. RESOLVED =Sepsis. Left lower lobe pneumonia. Present on admission. Continue IV antibiotics. Etiology secondary to pneumonia and UTI. =Severe protein calorie malnutrition: Consult placed for Engine Monitor. = Thrombocytopenia- Monitor =VRE: ID is following, ordered isolation treated with amoxicillin for 3 days and that 10/01/2018 per ID recommendation Patient is apart of ID rehab Outreach and ACT Team, call, psychiatrist Dr. Tatum @ [phone] and If Dr. Tatum is not available, call coordinator of care, Rao Galeas [phone]. Disposition: continue inpatient care, needs HD dialysis setup and new placement. Radiology has refused to re-schedule the Kidney biopsy because they have tired 3 times and pt refuses. DVT/GI propy Disposition is problematic in this case. Patient will need a diagnosis of end- stage renal disease for sinus to approve dialysis outpatient. A kidney biopsy is pending to see if this is the true diagnosis. And based on this further recommendations will follow History Interval history: Patient seen and examined, Reports improvement today, no new complaints today are waiting for biopsy purposes noted to have a decreased hemoglobin on labs. Blood transfusion has been ordered. Hospitalist Physical - Physical exam Narrative exam: Constitutional: Generalized swelling. anasacar-improved Head: Normocephalic atraumatic Eyes: Pupils are equal round and reactive to light Nose: No enlarged turbinates, no septal deviation. Mouth: Moist mucous membranes. Neck: Supple no thyromegaly. No bruit. No JVD Heart: Regular rate and rhythm, S1-S2 normal. No rubs murmurs or gallop Lungs: Diminished to auscultation bilaterally. no rales or rhonchi Abdomen: Soft, nontender. Bowel sound are present. Edematous Extremities: 2+ edema, no cyanosis, no clubbing. Neuro: Alert oriented Oriented x3. No focal sensory or motor deficit. Skin: No rashes or hyperpigmented spots Musculoskeletal system: No joint pain or swelling Hematological: No petechia or subcutanous hemorrhages. Lymphatic: No generalized lymphadenopathy Psychiatry: Euthymic. Calm. - Constitutional Vitals: Temp Pulse Resp BP Pulse Ox 97.2 F L 74 18 134/55 96 10/10/18 15:20 10/10/18 15:20 10/10/18 15:20 10/10/18 15:20 10/10/18 14:25 General appearance: Present: no acute distress, obese Results - Labs CBC & Chem 7: 10/10/18 06:41 10/10/18 06:41 Labs: Laboratory Last Values WBC 7.6 K/mm3 (4.5-11.0) 10/10/18 06:41 RBC 2.40 M/mm3 (3.65-5.03) L 10/10/18 06:41 Hgb 6.6 gm/dl (10.1-14.3) L 10/10/18 06:41 Hct 20.4 % (30.3-42.9) L D 10/10/18 06:41 MCV 85 fl (79-97) 10/10/18 06:41 MCH 28 pg (28-32) 10/10/18 06:41 MCHC 32 % (30-34) 10/10/18 06:41 RDW 20.3 % (13.2-15.2) H 10/10/18 06:41 Plt Count 124 K/mm3 (140-440) L 10/10/18 06:41 Lymph % (Auto) 24.2 % (13.4-35.0) 09/29/18 05:07 [place] % (Auto) Heat Set Operator 10/07/18 13:11 Eos % (Auto) 1.7 % (0.0-4.3) 09/29/18 05:07 Baso % (Auto) 0.3 % (0.0-1.8) 09/29/18 05:07 Lymph # 1.4 K/mm3 (1.2-5.4) 09/29/18 05:07 [place] # 0.9 K/mm3 (0.0-0.8) H 09/29/18 05:07 Eos # 0.1 K/mm3 (0.0-0.4) 09/29/18 05:07 Baso # 0.0 K/mm3 (0.0-0.1) 09/29/18 05:07 Add Manual Diff Complete 10/07/18 13:11 Total Counted 100 10/07/18 13:11 Seg Neutrophils % 58.2 % (40.0-70.0) 09/29/18 05:07 Seg Neuts % (Manual) 70.0 % (40.0-70.0) 10/07/18 13:11 Band Neutrophils % 1.0 % 10/07/18 13:11 Lymphocytes % (Manual) 10.0 % (13.4-35.0) L 10/07/18 13:11 Reactive Lymphs % (Man) 0 % 10/07/18 13:11 Monocytes % (Manual) 18.0 % (0.0-7.3) H 10/07/18 13:11 Eosinophils % (Manual) 0 % (0.0-4.3) 10/07/18 13:11 Basophils % (Manual) 0 % (0.0-1.8) 10/07/18 13:11 Metamyelocytes % 0 % 10/07/18 13:11 Myelocytes % 1.0 % 10/07/18 13:11 Promyelocytes % 0 % 10/07/18 13:11 Blast Cells % 0 % 10/07/18 13:11 Nucleated RBC % 2.0 % (0.0-0.9) H 10/07/18 13:11 Seg Neutrophils # 3.5 K/mm3 (1.8-7.7) 09/29/18 05:07 Seg Neutrophils # Man 4.7 K/mm3 (1.8-7.7) 10/07/18 13:11 Band Neutrophils # 0.1 K/mm3 10/07/18 13:11 Lymphocytes # (Manual) 0.7 K/mm3 (1.2-5.4) L 10/07/18 13:11 Abs React Lymphs (Man) 0.0 K/mm3 10/07/18 13:11 Monocytes # (Manual) 1.2 K/mm3 (0.0-0.8) H 10/07/18 13:11 Eosinophils # (Manual) 0.0 K/mm3 (0.0-0.4) 10/07/18 13:11 Basophils # (Manual) 0.0 K/mm3 (0.0-0.1) 10/07/18 13:11 Metamyelocytes # 0.0 K/mm3 10/07/18 13:11 Myelocytes # 0.1 K/mm3 10/07/18 13:11 Promyelocytes # 0.0 K/mm3 10/07/18 13:11 Blast Cells # 0.0 K/mm3 10/07/18 13:11 WBC Morphology Not Reportable 10/07/18 13:11 Hypersegmented Neuts Not Reportable 10/07/18 13:11 Hyposegmented Neuts Not Reportable 10/07/18 13:11 Hypogranular Neuts Not Reportable 10/07/18 13:11 Smudge Cells Not Reportable 10/07/18 13:11 Toxic Granulation Not Reportable 10/07/18 13:11 Toxic Vacuolation Not Reportable 10/07/18 13:11 Dohle Bodies Not Reportable 10/07/18 13:11 Pelger-Huet Anomaly Not Reportable 10/07/18 13:11 Latasha Rods Not Reportable 10/07/18 13:11 Platelet Estimate Consistent w auto 10/07/18 13:11 Clumped Platelets Not Reportable 10/07/18 13:11 Plt Clumps, EDTA Not Reportable 10/07/18 13:11 Large Platelets Not Reportable 10/07/18 13:11 Giant Platelets Not Reportable 10/07/18 13:11 Platelet Satelliting Not Reportable 10/07/18 13:11 Plt Morphology Comment Not Reportable 10/07/18 13:11 RBC Morphology Not Reportable 10/07/18 13:11 Dimorphic RBCs Not Reportable 10/07/18 13:11 Polychromasia Not Reportable 10/07/18 13:11 Hypochromasia Not Reportable 10/07/18 13:11 Poikilocytosis Not Reportable 10/07/18 13:11 Anisocytosis Not Reportable 10/07/18 13:11 Microcytosis 1+ 10/07/18 13:11 Macrocytosis Not Reportable 10/07/18 13:11 Spherocytes Not Reportable 10/07/18 13:11 Pappenheimer Bodies Not Reportable 10/07/18 13:11 Sickle Cells Not Reportable 10/07/18 13:11 Target Cells Not Reportable 10/07/18 13:11 Tear Drop Cells Not Reportable 10/07/18 13:11 Ovalocytes Not Reportable 10/07/18 13:11 Helmet Cells Not Reportable 10/07/18 13:11 [place] Bodies Not Reportable 10/07/18 13:11 [place] Rings Not Reportable 10/07/18 13:11 [place] Cells Not Reportable 10/07/18 13:11 Bite Cells Not Reportable 10/07/18 13:11 Crenated Cell Not Reportable 10/07/18 13:11 Elliptocytes Not Reportable 10/07/18 13:11 Acanthocytes (Spur) Not Reportable 10/07/18 13:11 Rouleaux Not Reportable 10/07/18 13:11 Hemoglobin C Crystals Not Reportable 10/07/18 13:11 Schistocytes Not Reportable 10/07/18 13:11 Malaria parasites Not Reportable 10/07/18 13:11 Paul Bodies Not Reportable 10/07/18 13:11 Hem Pathologist Commnt No 10/07/18 13:11 PT 13.4 Sec. (12.2-14.9) 10/10/18 09:01 INR 0.96 (0.87-1.13) 10/10/18 09:01 APTT 25.0 Sec. (24.2-36.6) 10/10/18 09:01 POC ABG pH 7.434 (7.35-7.45) 10/05/18 18:03 POC ABG pCO2 43.4 (35-45) 10/05/18 18:03 POC ABG pO2 57 (80-105) L 10/05/18 18:03 POC ABG HCO3 29.0 (22-26 mml/L) 10/05/18 18:03 POC ABG Total CO2 30 (23-27mmol/L) 10/05/18 18:03 POC ABG O2 Sat 90 10/05/18 18:03 POC ABG Base Excess 5 ((-2) - (+3)mmol/L) 10/05/18 18:03 FiO2 21 % 10/05/18 18:03 Sodium 138 mmol/L (137-145) 10/10/18 06:41 Potassium 4.3 mmol/L (3.6-5.0) 10/10/18 06:41 Chloride 102.8 mmol/L (98-107) 10/10/18 06:41 Carbon Dioxide 27 mmol/L (22-30) 10/10/18 06:41 Anion Gap 13 mmol/L 10/10/18 06:41 BUN 18 mg/dL (7-17) H 10/10/18 06:41 Creatinine 5.6 mg/dL (0.7-1.2) H 10/10/18 06:41 Estimated GFR 10 ml/min 10/10/18 06:41 BUN/Creatinine Ratio 3 % 10/10/18 06:41 Glucose 83 mg/dL (65-100) 10/10/18 06:41 Calcium 6.8 mg/dL (8.4-10.2) L 10/10/18 06:41 Phosphorus 4.60 mg/dL (2.5-4.5) H 09/27/18 07:42 Magnesium 2.60 mg/dL (1.7-2.3) H 09/17/18 15:17 Total Bilirubin < 0.20 mg/dL (0.1-1.2) 10/05/18 06:50 AST 14 units/L (5-40) 10/05/18 06:50 ALT 7 units/L (7-56) 10/05/18 06:50 Alkaline Phosphatase 52 units/L (35-129) 10/05/18 06:50 Total Creatine Kinase 559 units/L (30-135) H 09/26/18 07:17 Troponin T 0.012 ng/mL (0.00-0.029) 09/17/18 15:17 NT-Pro-B Natriuret Pep 992.5 pg/mL (0-450) H 09/17/18 15:17 Serum Total Protein 3.4 g/dL (6.1-8.1) L 09/19/18 05:45 Total Protein 4.1 g/dL (6.3-8.2) L 10/05/18 06:50 Albumin 1.5 g/dL (3.9-5) L 10/05/18 06:50 Albumin/Globulin Ratio 0.6 % 10/05/18 06:50 Vjpke-4-Soguwpoup 0.3 g/dL (0.2-0.3) 09/19/18 05:45 Wsbnx-4-Lpvbghgzo 0.8 g/dL (0.5-0.9) 09/19/18 05:45 Beta Globulins 0.4 g/dL (0.2-0.5) 09/19/18 05:45 Gamma Globulins 0.5 g/dL (0.8-1.7) L 09/19/18 05:45 Abnorm Protein Band 1 see below 09/19/18 05:45 PEP Interpretation see below H 09/19/18 05:45 Amylase 53 units/L (27-131) 09/25/18 13:53 Lipase 48 units/L (13-60) 09/25/18 13:53 HCG, Qual Negative (Negative) 09/25/18 13:53 PTH Intact 46.07 pg/mL (15-65) 09/19/18 05:45 Urine Color Yellow (Yellow) 09/17/18 17:18 Urine Turbidity Cloudy (Clear) 09/17/18 17:18 Urine pH 5.0 (5.0-7.0) 09/17/18 17:18 Ur Specific [place] 1.029 (1.003-1.030) 09/17/18 17:18 Urine Protein >500 mg/dL (Negative) 09/17/18 17:18 Urine Glucose (UA) Neg mg/dL (Negative) 09/17/18 17:18 Urine Ketones Tr mg/dL (Negative) 09/17/18 17:18 Urine Blood Sm (Negative) 09/17/18 17:18 Urine Nitrite Neg (Negative) 09/17/18 17:18 Urine Bilirubin Neg (Negative) 09/17/18 17:18 Urine Urobilinogen < 2.0 mg/dL (<2.0) 09/17/18 17:18 Ur Leukocyte Esterase Neg (Negative) 09/17/18 17:18 Urine WBC (Auto) 15.0 /HPF (0.0-6.0) H 09/17/18 17:18 Urine RBC (Auto) 13.0 /HPF (0.0-6.0) 09/17/18 17:18 U Epithel Cells (Auto) 6.0 /HPF (0-13.0) 09/17/18 17:18 Urine Bacteria (Auto) 2+ /HPF (Negative) 09/17/18 17:18 Urine WBC Clumps 2+ /HPF 09/17/18 17:18 Hyaline Casts 6 /LPF 09/17/18 17:18 Urine Mucus Few /HPF 09/17/18 17:18 Urine Yeast (Budding) 2+ /HPF 09/17/18 17:18 Urine Eosinophils None seen (None Seen) 09/18/18 10:30 Urine Total Volume 475 ml 09/18/18 10:30 Urine Creatinine 97.5 mg/dL (0.1-20.0) H 09/21/18 07:00 Ur Creatinine 24 Hour 0.7 (0.8-2.8) L 09/18/18 10:30 Ur Total Protein 24 Hr 1073.50 mg/dL (2-200) H 09/18/18 10:30 Protein/Creatinin Ratio 7.26 09/21/18 07:00 Urine Sodium 53 mmol/L 09/21/18 07:00 Urine Urea Nitrogen 467 09/18/18 10:30 Ur Urea Nitrogen 24 Hr 2.22 09/18/18 10:30 Urine Total Protein 708 mg/dL (5-11.8) H 09/21/18 07:00 Urine Opiates Screen Presumptive negative 09/17/18 17:18 Urine Methadone Screen Presumptive negative 09/17/18 17:18 Ur Barbiturates Screen Presumptive negative 09/17/18 17:18 Valproic Acid 13.2 ug/mL (50-100) L 09/26/18 07:17 Ur Phencyclidine Scrn Presumptive negative 09/17/18 17:18 Ur Amphetamines Screen Presumptive negative 09/17/18 17:18 U Benzodiazepines Scrn Presumptive negative 09/17/18 17:18 Urine Cocaine Screen Presumptive negative 09/17/18 17:18 U Marijuana (THC) Screen Presumptive negative 09/17/18 17:18 Drugs of Abuse Note Disclamer 09/17/18 17:18 BI Screen Negative (Negative) 09/19/18 05:45 Proteinase 3 (PR3) Ab <1.0 AI (<1.0) 09/19/18 05:45 Myeloperoxidase Ab <1.0 AI (<1.0) 09/19/18 05:45 Glomerular Base Mem IgG See scanned result 09/19/18 05:45 Complement C3 143 mg/dL (83-193) 09/19/18 05:45 Complement C4 56 mg/dL (15-57) 09/19/18 05:45 Hepatitis A IgM Ab Non-reactive (NonReactive) 09/19/18 05:45 Hep Bs Antigen Non-reactive (Negative) 09/19/18 05:45 Hep B Core IgM Ab Non-reactive (NonReactive) 09/19/18 05:45 Hepatitis C Antibody Non-reactive (NonReactive) 09/19/18 05:45 HIV 1&2 Antibody Rapid Non react (Non React) 09/27/18 07:42 HIV P24 Antigen Non react (Non React) 09/27/18 07:42 Blood Type O POSITIVE 10/10/18 09:01 Antibody Screen Negative 10/10/18 09:01 Crossmatch See Detail 10/10/18 09:01 Active Medications - Current Medications Current Medications: Generic Name Dose Route Start Last Admin Trade Name Freq PRN Reason Stop Dose Admin Acetaminophen 650 mg 09/18/18 02:40 09/27/18 05:36 Tylenol PO 650 mg Q4H PRN Administration Pain MILD(1-3)/Fever >100.5/MENDOZA Atorvastatin Calcium 40 mg 09/18/18 22:00 10/09/18 22:03 Lipitor PO 40 mg QHS LUZ Administration Diphenhydramine HCl 50 mg 09/18/18 22:00 10/09/18 22:04 Benadryl PO 50 mg HS LUZ Administration Divalproex Sodium 500 mg 09/18/18 10:00 10/09/18 22:[address] PO 500 mg BID LUZ Administration Epoetin Luis 20,000 unit 09/26/18 12:23 10/08/18 13:15 Procrit SUB-Q 20,000 unit KUSHAL PRN Administration hemodialysis Furosemide 80 mg 09/29/18 06:00 10/10/18 05:12 Lasix PO 80 mg 0600,1800 LUZ Administration Haloperidol 5 mg 09/25/18 22:00 10/09/18 22:04 Haldol PO 5 mg HS LUZ Administration Hydralazine HCl 10 mg 09/22/18 06:28 09/22/18 12:12 Apresoline IV 10 mg Q4H PRN Administration systolic b/p >165 Hydromorphone HCl 0.5 mg 09/18/18 02:40 Dilaudid IV Q3H PRN Pain , Severe (7-10) Sodium Chloride 500 mls @ 0 mls/hr 10/10/18 09:32 Nacl 0.9% 500 Ml IV 10/10/18 18:00 ONCE NR As Directed Sodium Chloride 100 mls @ 999 mls/hr 10/10/18 09:32 Nacl 0.9% IV KUSHAL PRN Hypotension Losartan Potassium 50 mg 10/04/18 10:00 10/09/18 13:21 Cozaar PO Not Given QDAY LUZ Metoprolol Tartrate 50 mg 10/07/18 13:00 10/09/18 22:03 Lopressor PO 50 mg BID LUZ Administration Ondansetron HCl 4 mg 09/18/18 02:40 10/07/18 03:15 Zofran IV 4 mg Q8H PRN Administration Nausea And Vomiting Oxycodone/Acetaminophen 1 tab 09/18/18 02:40 10/09/18 22:03 Percocet 5/325 PO 1 tab Q6H PRN Administration Pain, Moderate (4-6) Pantoprazole Sodium 40 mg 10/02/18 10:00 10/09/18 13:20 Protonix PO 40 mg DAILY LUZ Administration Sodium Chloride 10 ml 09/18/18 10:00 10/10/18 09:28 Sodium Chloride Flush Syringe 10 Ml IV 10 ml BID LUZ Administration Sodium Chloride 10 ml 09/18/18 02:40 Sodium Chloride Flush Syringe 10 Ml IV PRN PRN LINE FLUSH Nutrition/Malnutrition Assess - Dietary Evaluation Nutrition/Malnutrition Findings: Nutrition Notes Start: 09/24/18 15:36 Freq: Status: Active Protocol: Document 10/09/18 14:32 TW (Rec: 10/09/18 14:49 TW [id number]) Co-Sign 10/09/18 14:32 LP Nutrition Notes Initial or Follow up Reassessment Current Diagnosis Sepsis,Respiratory Failure Other Pertinent Diagnosis renal failure on HD, nephrotic syndrome, anemia Current Diet GI Soft Labs/Tests Cr 4.9 Pertinent Medications Lasix Height 5 ft 6 in Weight 141.7 kg Dick[place] Body Weight (kg) 59.09 BMI 50.4 Intake Prior to Admission Excellent Weight Status Morbidly Obese Subjective/Other Information F/U for intakes and renal education. 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 Discussed with pt importance of HD and renal appropriate diet. Percent of energy/protein needs met: 100%/100% Burn Absent Trauma Absent #2 Nutrition Diagnosis Food and nutrition-related knowledge deficit Etiology lack of prior renal education As Evidenced by Signs and Symptoms pt reporting not knowing about renal disease Is patient on ventilator? No Is Patient Ambulatory and/or Out of Bed Yes REE-([place]-St. Jeor-ambulatory/OOB) [ 2695.875 NUTR.[id number]] Kcal/Kg value to use for calculation 15 Approximate Energy Requirements Using 2126 kcal/Kg Calculation Used for Recommendations Kcal/kg Additional Notes Protein Needs: 71-77g (1.2-1. 3g/kg IBW) Fluid Needs: 1 ml/kcal Nutrition Intervention Change Diet Order: Continue GI soft Teaching Recipient Patient Learning Readiness Fair Teaching Methods Discussion,Handout Response to Teaching Reinforcement needed Education Handouts Provided Importance of HD, Renal diet Barriers to Learning Motivation RD phone number provided Yes Patient aware of follow up options Yes Goal #1 Continue to meet at least 75% of calorie and protein needs via PO intakes Anticipated Discharge Needs: Unable to determine at this time Revisit per MD consult or patient Sign Off request:
[2018-10-10] MEDS ORDERED: WATER FOR INJ Sterile (PF) 10 ML ONE (18:41)
[2018-10-10] MEDS ORDERED: CATHFLO ONE (18:41)
[2018-10-10] MEDS ORDERED: CATHFLO IV ONE (18:47)
[2018-10-10] MEDS: HALDOL PO SCH (21:40)
[2018-10-10] MEDS: BENADRYL PO SCH (21:40)
[2018-10-11 08:27] LABS: Hematocrit 20.8 % (30.3-42.9); Hemoglobin 6.6 gm/dl (10.1-14.3); Mean Corpuscular HGB Conc 32 % (30-34); Mean Corpuscular Volume 87 fl (79-97); Platelet Count 132 K/mm3 (140-440)
[2018-10-11 08:38] LABS: Red Cell Distribution Width 21.1 % (13.2-15.2)
[2018-10-11] MEDS: LASIX PO SCH ×2 (08:41→19:11)
--- NOTE | 2018-10-11 09:48 | Progress Note ---
Assessment and Plan Acute hypoxemic respiratory failure Sepsis secondary to left lower lobe PNA Extreme obesity Nephrotic syndrome Enterococcus UTI Renal failure on HD Nephrotic syndrome, s/p renal biopsy Anemia - continue supplemental oxygen to keep O2 sat's > 90% -nocturnal BIPAP and prn during the day - bronchodilators per protocol - follow up renal biopsy results - now dialysis dependent; continue HD/UF per nephrology prescription - no active GI bleeding and was related to Radha Mendez tear - VTE w/up negative -influenza and pneumonia vaccination per protocol -out patient sleep study on discharge -weight loss and lifestyle modifications - continue other care per attending / other consultants Continue all supportive care Discharge planning Subjective Date of service: 10/11/18 Principal diagnosis: coffee-ground emesis Interval history: follow up: Acute hypoxic respiratory failure: Abnormal CXR, Morbid obesity with probable STEFF Seen and examined. Vitals, labs, medications, chart and imaging reviewed. No acute overnight events, intermittently on supplemental oxygen. In consistently using NIPPV s/p renal biopsy. States she if feeling better and wants to go home Objective Vital Signs - 12hr 10/10/18 10/10/18 22:00 23:50 Respiratory 17 20 Rate O2 Sat by Pulse 96 Oximetry Constitutional: no acute distress, alert Eyes: non-icteric ENT: oropharynx moist Neck: supple, no JVD Effort: mildly labored Ascultation: Bilateral: clear, diminished breath sounds Percussion: Bilateral: not dull Cardiovascular: regular rate and rhythm Gastrointestinal: normoactive bowel sounds, soft, non-tender Integumentary: normal Extremities: no cyanosis, no edema Neurologic: non-focal exam, pupils equal and round, CN II-XII normal Psychiatric: depressed CBC and BMP: 10/12/18 09:25 10/12/18 09:25 ABG, PT/INR, D-dimer: ABG POC ABG pH 7.434 (7.35-7.45) 10/05/18 18:03 POC ABG pCO2 43.4 (35-45) 10/05/18 18:03 POC ABG pO2 57 (80-105) L 10/05/18 18:03 POC ABG HCO3 29.0 (22-26 mml/L) 10/05/18 18:03 POC ABG Total CO2 30 (23-27mmol/L) 10/05/18 18:03 POC ABG O2 Sat 90 10/05/18 18:03 PT/INR, D-dimer PT 13.4 Sec. (12.2-14.9) 10/10/18 09:01 INR 0.96 (0.87-1.13) 10/10/18 09:01 Abnormal lab findings: Abnormal Labs 09/17/18 09/17/18 09/17/18 15:17 15:17 15:17 WBC RBC 3.34 L Hgb 9.1 L Hct 27.9 L MCH 27 L RDW 20.5 H Plt Count Lymph % (Auto) [place] % (Auto) 8.8 H [place] # Seg Neuts % (Manual) Lymphocytes % (Manual) Monocytes % (Manual) Nucleated RBC % Lymphocytes # (Manual) Monocytes # (Manual) APTT 22.2 L POC ABG pO2 Potassium Chloride 107.7 H BUN 37 H Creatinine 2.3 H Glucose Calcium 7.4 L Phosphorus Magnesium 2.60 H ALT Total Creatine Kinase NT-Pro-B Natriuret Pep 992.5 H Serum Total Protein Total Protein 4.1 L Albumin 1.3 L Gamma Globulins PEP Interpretation Urine WBC (Auto) Urine Creatinine Ur Creatinine 24 Hour Ur Total Protein 24 Hr Urine Total Protein Valproic Acid Crossmatch 09/17/18 09/18/18 09/18/18 17:18 05:22 05:22 WBC 4.4 L RBC 3.06 L Hgb 8.5 L Hct 25.5 L MCH RDW 20.0 H Plt Count Lymph % (Auto) 36.5 H [place] % (Auto) 12.3 H [place] # Seg Neuts % (Manual) Lymphocytes % (Manual) Monocytes % (Manual) Nucleated RBC % Lymphocytes # (Manual) Monocytes # (Manual) APTT POC ABG pO2 Potassium Chloride 107.2 H BUN 37 H Creatinine 2.2 H Glucose Calcium 7.4 L Phosphorus Magnesium ALT 6 L Total Creatine Kinase NT-Pro-B Natriuret Pep Serum Total Protein Total Protein 3.9 L Albumin 1.4 L Gamma Globulins PEP Interpretation Urine WBC (Auto) 15.0 H Urine Creatinine Ur Creatinine 24 Hour Ur Total Protein 24 Hr Urine Total Protein Valproic Acid Crossmatch 09/18/18 09/19/18 09/19/18 10:30 05:45 05:45 WBC RBC Hgb Hct MCH RDW Plt Count Lymph % (Auto) [place] % (Auto) [place] # Seg Neuts % (Manual) Lymphocytes % (Manual) Monocytes % (Manual) Nucleated RBC % Lymphocytes # (Manual) Monocytes # (Manual) APTT POC ABG pO2 Potassium Chloride BUN 37 H Creatinine 2.1 H Glucose Calcium 7.3 L Phosphorus Magnesium ALT Total Creatine Kinase NT-Pro-B Natriuret Pep Serum Total Protein 3.4 L Total Protein Albumin 1.2 L Gamma Globulins 0.5 L PEP Interpretation see below H Urine WBC (Auto) Urine Creatinine 147.5 H Ur Creatinine 24 Hour 0.7 L Ur Total Protein 24 Hr 1073.50 H Urine Total Protein 226 H Valproic Acid Crossmatch 09/20/18 09/20/18 09/21/18 04:56 15:15 06:13 WBC RBC 2.84 L Hgb 7.8 L Hct 24.1 L MCH 27 L RDW 19.8 H Plt Count Lymph % (Auto) [place] % (Auto) 12.9 H [place] # Seg Neuts % (Manual) Lymphocytes % (Manual) Monocytes % (Manual) Nucleated RBC % Lymphocytes # (Manual) Monocytes # (Manual) APTT POC ABG pO2 Potassium 5.4 H 5.5 H Chloride 108.2 H BUN 38 H Creatinine 2.4 H Glucose Calcium 7.2 L Phosphorus Magnesium ALT Total Creatine Kinase NT-Pro-B Natriuret Pep Serum Total Protein Total Protein Albumin Gamma Globulins PEP Interpretation Urine WBC (Auto) Urine Creatinine Ur Creatinine 24 Hour Ur Total Protein 24 Hr Urine Total Protein Valproic Acid Crossmatch 09/21/18 09/21/18 09/22/18 06:13 07:00 10:12 WBC RBC Hgb Hct MCH RDW Plt Count Lymph % (Auto) [place] % (Auto) [place] # Seg Neuts % (Manual) Lymphocytes % (Manual) Monocytes % (Manual) Nucleated RBC % Lymphocytes # (Manual) Monocytes # (Manual) APTT POC ABG pO2 Potassium 5.2 H Chloride 108.2 H 111.5 H BUN 39 H 40 H Creatinine 2.7 H 3.1 H Glucose Calcium 7.3 L 7.1 L Phosphorus Magnesium ALT Total Creatine Kinase NT-Pro-B Natriuret Pep Serum Total Protein Total Protein Albumin Gamma Globulins PEP Interpretation Urine WBC (Auto) Urine Creatinine 97.5 H Ur Creatinine 24 Hour Ur Total Protein 24 Hr Urine Total Protein 708 H Valproic Acid Crossmatch 09/23/18 09/25/18 09/25/18 04:40 07:30 07:30 WBC RBC 2.55 L Hgb 6.9 L Hct 21.5 L MCH 27 L RDW 19.5 H Plt Count Lymph % (Auto) [place] % (Auto) 12.2 H [place] # Seg Neuts % (Manual) Lymphocytes % (Manual) Monocytes % (Manual) Nucleated RBC % Lymphocytes # (Manual) Monocytes # (Manual) APTT POC ABG pO2 Potassium Chloride 109.1 H BUN 42 H 33 H Creatinine 3.8 H 4.4 H Glucose 102 H Calcium 7.2 L 7.3 L Phosphorus 5.00 H Magnesium ALT Total Creatine Kinase NT-Pro-B Natriuret Pep Serum Total Protein Total Protein Albumin Gamma Globulins PEP Interpretation Urine WBC (Auto) Urine Creatinine Ur Creatinine 24 Hour Ur Total Protein 24 Hr Urine Total Protein Valproic Acid Crossmatch 09/26/18 09/26/18 09/26/18 07:17 07:17 07:17 WBC RBC Hgb 6.7 L Hct 20.0 L MCH RDW Plt Count Lymph % (Auto) [place] % (Auto) [place] # Seg Neuts % (Manual) Lymphocytes % (Manual) Monocytes % (Manual) Nucleated RBC % Lymphocytes # (Manual) Monocytes # (Manual) APTT POC ABG pO2 Potassium Chloride BUN 24 H Creatinine 4.1 H Glucose Calcium 7.0 L Phosphorus Magnesium ALT Total Creatine Kinase 559 H NT-Pro-B Natriuret Pep Serum Total Protein Total Protein Albumin Gamma Globulins PEP Interpretation Urine WBC (Auto) Urine Creatinine Ur Creatinine 24 Hour Ur Total Protein 24 Hr Urine Total Protein Valproic Acid 13.2 L Crossmatch 09/26/18 09/27/18 09/27/18 Unknown 07:42 07:42 WBC RBC 2.16 L Hgb 6.0 L Hct 18.1 L* MCH RDW 18.9 H Plt Count 130 L Lymph % (Auto) [place] % (Auto) 15.8 H [place] # Seg Neuts % (Manual) Lymphocytes % (Manual) Monocytes % (Manual) Nucleated RBC % Lymphocytes # (Manual) Monocytes # (Manual) APTT 36.7 H POC ABG pO2 Potassium Chloride 108.4 H BUN 26 H Creatinine 4.8 H Glucose Calcium 7.1 L Phosphorus 4.60 H Magnesium ALT Total Creatine Kinase NT-Pro-B Natriuret Pep Serum Total Protein Total Protein Albumin Gamma Globulins PEP Interpretation Urine WBC (Auto) Urine Creatinine Ur Creatinine 24 Hour Ur Total Protein 24 Hr Urine Total Protein Valproic Acid Crossmatch 09/27/18 09/28/18 09/29/18 10:43 04:43 05:07 WBC RBC 3.29 L 3.28 L Hgb 8.9 L 8.9 L Hct 27.2 L D 27.1 L MCH 27 L 27 L RDW 19.3 H 19.3 H Plt Count 130 L 133 L Lymph % (Auto) [place] % (Auto) 15.6 H [place] # 0.9 H Seg Neuts % (Manual) Lymphocytes % (Manual) Monocytes % (Manual) Nucleated RBC % Lymphocytes # (Manual) Monocytes # (Manual) APTT POC ABG pO2 Potassium Chloride BUN Creatinine Glucose Calcium Phosphorus Magnesium ALT Total Creatine Kinase NT-Pro-B Natriuret Pep Serum Total Protein Total Protein Albumin Gamma Globulins PEP Interpretation Urine WBC (Auto) Urine Creatinine Ur Creatinine 24 Hour Ur Total Protein 24 Hr Urine Total Protein Valproic Acid Crossmatch See Detail 09/29/18 10/01/18 10/01/18 05:07 06:16 06:16 WBC RBC 3.18 L Hgb 8.6 L Hct 26.2 L MCH 27 L RDW 19.3 H Plt Count Lymph % (Auto) [place] % (Auto) [place] # Seg Neuts % (Manual) Lymphocytes % (Manual) Monocytes % (Manual) Nucleated RBC % Lymphocytes # (Manual) Monocytes # (Manual) APTT POC ABG pO2 Potassium Chloride BUN 22 H 22 H Creatinine 5.4 H 6.0 H Glucose Calcium 7.1 L 7.1 L Phosphorus Magnesium ALT Total Creatine Kinase NT-Pro-B Natriuret Pep Serum Total Protein Total Protein Albumin Gamma Globulins PEP Interpretation Urine WBC (Auto) Urine Creatinine Ur Creatinine 24 Hour Ur Total Protein 24 Hr Urine Total Protein Valproic Acid Crossmatch 10/05/18 10/05/18 10/05/18 06:50 06:50 18:03 WBC RBC 3.08 L Hgb 8.3 L Hct 25.6 L MCH 27 L RDW 19.0 H Plt Count Lymph % (Auto) [place] % (Auto) [place] # Seg Neuts % (Manual) Lymphocytes % (Manual) Monocytes % (Manual) 11.0 H Nucleated RBC % Lymphocytes # (Manual) 0.9 L Monocytes # (Manual) APTT POC ABG pO2 57 L Potassium Chloride BUN Creatinine 4.9 H Glucose Calcium 7.3 L Phosphorus Magnesium ALT Total Creatine Kinase NT-Pro-B Natriuret Pep Serum Total Protein Total Protein 4.1 L Albumin 1.5 L Gamma Globulins PEP Interpretation Urine WBC (Auto) Urine Creatinine Ur Creatinine 24 Hour Ur Total Protein 24 Hr Urine Total Protein Valproic Acid Crossmatch 10/06/18 10/07/18 10/07/18 06:22 13:11 13:11 WBC RBC 3.04 L 3.36 L Hgb 8.1 L 9.0 L Hct 25.2 L 28.0 L MCH 27 L 27 L RDW 19.2 H 20.0 H Plt Count Lymph % (Auto) [place] % (Auto) [place] # Seg Neuts % (Manual) 71.0 H Lymphocytes % (Manual) 10.0 L Monocytes % (Manual) 14.0 H 18.0 H Nucleated RBC % 2.0 H Lymphocytes # (Manual) 1.0 L 0.7 L Monocytes # (Manual) 1.0 H 1.2 H APTT POC ABG pO2 Potassium Chloride BUN Creatinine 4.9 H Glucose 128 H Calcium 7.4 L Phosphorus Magnesium ALT Total Creatine Kinase NT-Pro-B Natriuret Pep Serum Total Protein Total Protein Albumin Gamma Globulins PEP Interpretation Urine WBC (Auto) Urine Creatinine Ur Creatinine 24 Hour Ur Total Protein 24 Hr Urine Total Protein Valproic Acid Crossmatch 10/10/18 10/10/18 10/10/18 06:41 06:41 09:01 WBC RBC 2.40 L Hgb 6.6 L Hct 20.4 L D MCH RDW 20.3 H Plt Count 124 L Lymph % (Auto) [place] % (Auto) [place] # Seg Neuts % (Manual) Lymphocytes % (Manual) Monocytes % (Manual) Nucleated RBC % Lymphocytes # (Manual) Monocytes # (Manual) APTT POC ABG pO2 Potassium Chloride BUN 18 H Creatinine 5.6 H Glucose Calcium 6.8 L Phosphorus Magnesium ALT Total Creatine Kinase NT-Pro-B Natriuret Pep Serum Total Protein Total Protein Albumin Gamma Globulins PEP Interpretation Urine WBC (Auto) Urine Creatinine Ur Creatinine 24 Hour Ur Total Protein 24 Hr Urine Total Protein Valproic Acid Crossmatch See Detail 10/11/18 07:46 WBC RBC 2.40 L Hgb 6.6 L Hct 20.8 L MCH 27 L RDW 21.1 H Plt Count 132 L Lymph % (Auto) [place] % (Auto) [place] # Seg Neuts % (Manual) Lymphocytes % (Manual) Monocytes % (Manual) Nucleated RBC % Lymphocytes # (Manual) Monocytes # (Manual) APTT POC ABG pO2 Potassium Chloride BUN Creatinine Glucose Calcium Phosphorus Magnesium ALT Total Creatine Kinase NT-Pro-B Natriuret Pep Serum Total Protein Total Protein Albumin Gamma Globulins PEP Interpretation Urine WBC (Auto) Urine Creatinine Ur Creatinine 24 Hour Ur Total Protein 24 Hr Urine Total Protein Valproic Acid Crossmatch Allied health notes reviewed: nursing
[2018-10-11] MEDS ORDERED: HEPARIN/NS 5000 UNIT/500ML(CATH LAB) 500 ML IR ONE (10:45)
[2018-10-11] MEDS ORDERED: HEPARIN 10,000 UNITS/10 ML ONE (10:45)
[2018-10-11] MEDS ORDERED: XYLOCAINE 1%/ EPI 1:100,000 INFILTRATI ONE (10:46)
[2018-10-11] MEDS ORDERED: NACL 0.9% 250ML 250 ML ONE (10:46)
[2018-10-11] MEDS ORDERED: XYLOCAINE/EPI 1% 1:50,000 (OR) INFILTRATI ONE (11:09)
[2018-10-11] MEDS ORDERED: HEPARIN 10,000 UNITS/10 ML 5,000 UNIT in NACL 0.9% 500 ML 500 ML IR ONE (11:09)
[2018-10-11] MEDS ORDERED: HEPARIN 10,000 UNITS/10 ML IV ONE ×3 (11:23→11:34)
[2018-10-11] MEDS ORDERED: VERSED IV ONE (11:32)
[2018-10-11] MEDS ORDERED: VERSED ONE (11:32)
[2018-10-11] MEDS: LOPRESSOR PO SCH ×2 (13:04→22:44)
[2018-10-11] MEDS: COZAAR PO SCH (13:04)
[2018-10-11] MEDS: SODIUM CHLORIDE FLUSH SYRINGE 10 ML IV SCH (13:05)
[2018-10-11] MEDS: LOVENOX SUB-Q SCH (13:05)
[2018-10-11] MEDS: PROTONIX PO SCH (13:06)
--- NOTE | 2018-10-11 14:29 | Operative Report ---
Operative Report Operative Report: EXAM: 1. Fluoroscopic guided exchange of a right internal jugular tunneled cuffed hemodialysis catheter. 2. Superior venacava venography, right innominate vein and right internal jugular venography 3. Angioplasty of the right innominate vein with an 8 mm angioplasty balloon DATE: 10/11/18 INDICATION: End-stage renal disease with PermCath malfunction MEDICATIONS: Please see nursing report for full details. SIX P[employer] LOADER OPERATOR: JOELLEN GRUBBS MD DEVICES: 23 cm tip to cuff 15 Fr dual lumen hemodialysis catheter ; existing catheter was a 19 cm tip to cuff dual lumen hemodialysis catheter CONTRAST: Please see laborer shellfish processing report for full details. PROCEDURE: The risks, benefits, and alternatives were discussed and informed consent was obtained. The patient was transported to the angiography suite in satisfactory/stable condition and was transported onto the angiography table. The patient was prepped and draped in a sterile fashion. The existing PermCath was prepped and draped in a sterile fashion. Neither lumen could be aspirated. Fluoroscopy demonstrated that the tip of the catheter was in the right innominate vein near the internal jugular vein. A stiff angled Glidewire was advanced through each lumen of the existing PermCath. Lidocaine was used to anesthetize the existing PermCath dermatotomy. Using a hemostat, blunt dissection was used to free the existing cuff. Over the 0.035 inch wires, the existing PermCath was removed. Site was cleaned with ChloraPrep. Wires cleaned with ChloraPrep. I attempted to pass a new PermCath over the wires, but it did not pass beyond the right innominate vein. Therefore, I remove the PermCath of the wires. 7 [place] sheath was advanced over one of the wires. Pullback venography and digital subtraction venography demonstrated thrombus in the right internal jugular vein and narrowing of the right internal jugular veins junction with the right innominate vein. The SVC and right innominate vein was otherwise patent. 8 mm angioplasty balloon was then used to perform angioplasty of the right internal jugular vein junction with the right innominate vein. Digital subtraction angiography demonstrated thrombus throughout the internal jugular vein with 10% residual narrowing at the internal jugular vein and innominate vein junction. I then attempted to pass the PermCath over the wires but was again unsuccessful. I then exchanged one of the wires for an Amplatz wire over an angled catheter. I then used a 15.5 [place] peel-away sheath over the Amplatz wire which was passed into the right mid innominate vein. I was then able to thread a catheter through the peel-away sheath into the cavoatrial junction through the peel-away sheath over the Amplatz wire. Sheath was removed. Catheter lumens were aspirated and flushed without issue. The catheter was discharged with 1000 units per mL of heparin. Sterile dressing and Biopatch wer e applied. 2-0 Ethilon suture was used to secure the catheter at the dermatotomy. The patient was transferred from the angiography suite back to the floor in stable condition. FINDINGS: Please see procedure note above. IMPRESSION: 1. Successful fluoroscopic guided replacement of a right internal jugular tunneled cuffed hemodialysis catheter. 2. Successful angioplasty of the right innominate vein with an 8 mm angioplasty balloon. 3. Right internal jugular vein thrombus, occlusive.
--- NOTE | 2018-10-11 15:06 | Progress Note ---
Assessment and Plan 1. Acute kidney injury superimposed on CKD: LUCILA likely related Nephrotic syndrome. Chronicity of the CKD or LUCILA is unknown. Suspect ESRD and need for assisted hemodialysis. Patient was started on hemodialysis on 09/24/2018 due to worsening renal function, anasarca and suspected pulmonary edema. Last dialyzed yesterday. Patient has been refusing HD / Isolated UF intermittently. Unable to do HD yesterday due to malfunctioning dialysis catheter. S/p exchange of hemodialysis catheter. HD today. Renal prognosis appears to be poor at this time. 2. Nephrotic syndrome: Possible causes include but not limited to FSGS, Minimal change, Membranous and Lupus nephritis. Complements, BI, ANCA, SPEP, GBM Ab, Hepatitis panel and HIV are negative. S/p Kidney biopsy yesterday, await results. On Lovenox to prevent DVT. Continue ARB and Statin. 3. FEN: Volume overload, UF with HD. On Lasix. Hyperkalemia, improved. 4. VRE bacteriuria. 5. HTN: Monitor BP. 6. Anemia: GI bleed. PRBC today if patient agrees. Epogen with HD. 7. Schizophrenia. 8. Medical non-compliance. Subjective Date of service: 10/11/18 Principal diagnosis: coffee-ground emesis Interval history: Patient was seen and examined at the bedside. Doing ok. Objective - Vital Signs Vital signs: Vital Signs - 12hr 10/11/18 12:12 Temperature 99.1 F Pulse Rate 83 Respiratory 20 Rate Blood Pressure 134/80 O2 Sat by Pulse 94 Oximetry - General Appearance General appearance: well-developed, well-nourished, appears stated age, obese, other (not in distress, right IJ tunnel catheter) EENT: ATNC, PERRL, other (facial plethora noted) Neck: supple Respiratory: Present: Clear to Ascultation Cardiology: regular, S1S2, no murmurs Gastrointestinal: normoactive bowel sounds, no tenderness, no distended, obese Integumentary: warm and dry Neurologic: no focal deficit, no asterixis, alert and oriented x3 Musculoskeletal: other (2+ edema of both LEs noted) - Lab 10/11/18 07:46 10/10/18 06:41 Most recent lab results Calcium 6.8 mg/dL (8.4-10.2) L 10/10/18 06:41 Phosphorus 4.60 mg/dL (2.5-4.5) H 09/27/18 07:42 Magnesium 2.60 mg/dL (1.7-2.3) H 09/17/18 15:17 Urine Creatinine 97.5 mg/dL (0.1-20.0) H 09/21/18 07:00 Ur Total Protein 24 Hr 1073.50 mg/dL (2-200) H 09/18/18 10:30 Urine Sodium 53 mmol/L 09/21/18 07:00 Urine Total Protein 708 mg/dL (5-11.8) H 09/21/18 07:00 Medications & Allergies - Medications Allergies/Adverse Reactions: Allergies No Known Allergies Allergy (Unverified 09/17/18 15:05) Home Medications: Home Medications Medication Instructions Recorded Confirmed Last Taken Type Divalproex Sodium [Depakote] 500 mg PO BID 09/17/18 09/17/18 Unknown History Haldol (Nf) 10 mg PO QHS 09/17/18 10/06/18 Unknown History Invega Sustenna 156 mg IM QMONTH 09/17/18 10/06/18 Unknown History diphenhydrAMINE [Benadryl CAP] 50 mg PO HS 09/17/18 09/17/18 Unknown History Active Medications: Generic Name Dose Route Start Last Admin Trade Name Freq PRN Reason Stop Dose Admin Acetaminophen 650 mg 09/18/18 02:40 09/27/18 05:36 Tylenol PO 650 mg Q4H PRN Administration Pain MILD(1-3)/Fever >100.5/MENDOZA Atorvastatin Calcium 40 mg 09/18/18 22:00 10/10/18 21:41 Lipitor PO 40 mg QHS LUZ Administration Diphenhydramine HCl 50 mg 09/18/18 22:00 10/10/18 21:40 Benadryl PO 50 mg HS LUZ Administration Divalproex Sodium 500 mg 09/18/18 10:00 10/11/18 13:[address] PO 500 mg BID LUZ Administration Enoxaparin Sodium 30 mg 10/11/18 10:00 10/11/18 13:05 Lovenox SUB-Q 30 mg QDAY LUZ Administration Epoetin Luis 20,000 unit 09/26/18 12:23 10/08/18 13:15 Procrit SUB-Q 20,000 unit KUSHAL PRN Administration hemodialysis Furosemide 80 mg 09/29/18 06:00 10/11/18 08:41 Lasix PO Not Given 0600,1800 LUZ Haloperidol 5 mg 09/25/18 22:00 10/10/18 21:40 Haldol PO 5 mg HS LUZ Administration Hydralazine HCl 10 mg 09/22/18 06:28 09/22/18 12:12 Apresoline IV 10 mg Q4H PRN Administration systolic b/p >165 Hydromorphone HCl 0.5 mg 09/18/18 02:40 Dilaudid IV Q3H PRN Pain , Severe (7-10) Sodium Chloride 100 mls @ 999 mls/hr 10/10/18 09:32 Nacl 0.9% IV KUSHAL PRN Hypotension Losartan Potassium 50 mg 10/04/18 10:00 10/11/18 13:04 Cozaar PO 50 mg QDAY LUZ Administration Metoprolol Tartrate 50 mg 10/07/18 13:00 10/11/18 13:04 Lopressor PO 50 mg BID LUZ Administration Ondansetron HCl 4 mg 09/18/18 02:40 10/07/18 03:15 Zofran IV 4 mg Q8H PRN Administration Nausea And Vomiting Oxycodone/Acetaminophen 1 tab 09/18/18 02:40 10/09/18 22:03 Percocet 5/325 PO 1 tab Q6H PRN Administration Pain, Moderate (4-6) Pantoprazole Sodium 40 mg 10/02/18 10:00 10/11/18 13:06 Protonix PO 40 mg DAILY LUZ Administration Sodium Chloride 10 ml 09/18/18 10:00 10/11/18 13:05 Sodium Chloride Flush Syringe 10 Ml IV 10 ml BID LUZ Administration Sodium Chloride 10 ml 09/18/18 02:40 Sodium Chloride Flush Syringe 10 Ml IV PRN PRN LINE FLUSH
[2018-10-11] MEDS ORDERED: NACL 0.9% 100 ML IV PRN (15:08)
--- NOTE | 2018-10-11 15:20 | Progress Note ---
Assessment and Plan 47-year-old female with multiple medical issues including GI bleed and recent catheter exchange with venography and angioplasty. Catheter required exchange due to short size of the prior catheter. The right internal jugular vein was completely thrombosed and was painful with pressure. In an optimal situation, anticoagulation for 3 months is recommended. Unfortunately, patient has a recent history of GI bleed during this admission an d has anemia requiring multiple transfusions. May not be candidate for anticoagulation. Discussed with Dr. Quintanilla. Subjective Date of service: 10/11/18 Principal diagnosis: coffee-ground emesis Interval history: Had right internal jugular vein thrombus on angiography with catheter exchange with angioplasty. Objective - Constitutional Vitals: Vital Signs - 12hr 10/11/18 12:12 Temperature 99.1 F Pulse Rate 83 Respiratory 20 Rate Blood Pressure 134/80 O2 Sat by Pulse 94 Oximetry General appearance: Present: mild distress (with right neck pressure) - EENT Eyes: EOM intact - Respiratory Respiratory effort: normal - Psychiatric Psychiatric: appropriate mood/affect, cooperative - Labs CBC & Chem 7: 10/11/18 07:46 10/10/18 06:41 Labs: Abnormal lab results 10/10/18 10/11/18 Range/Units 09:01 07:46 RBC 2.40 L (3.65-5.03) M/mm3 Hgb 6.6 L (10.1-14.3) gm/dl Hct 20.8 L (30.3-42.9) % MCH 27 L (28-32) pg RDW 21.1 H (13.2-15.2) % Plt Count 132 L (140-440) K/mm3 Crossmatch See Detail Medications & Allergies - Medications Allergies/Adverse Reactions: Allergies No Known Allergies Allergy (Unverified 09/17/18 15:05) Home Medications: Home Medications Medication Instructions Recorded Confirmed Last Taken Type Divalproex Sodium [Depakote] 500 mg PO BID 09/17/18 09/17/18 Unknown History Haldol (Nf) 10 mg PO QHS 09/17/18 10/06/18 Unknown History Invega Sustenna 156 mg IM QMONTH 09/17/18 10/06/18 Unknown History diphenhydrAMINE [Benadryl CAP] 50 mg PO HS 09/17/18 09/17/18 Unknown History Active Medications: Generic Name Dose Route Start Last Admin Trade Name Freq PRN Reason Stop Dose Admin Acetaminophen 650 mg 09/18/18 02:40 09/27/18 05:36 Tylenol PO 650 mg Q4H PRN Administration Pain MILD(1-3)/Fever >100.5/MENDOZA Atorvastatin Calcium 40 mg 09/18/18 22:00 10/10/18 21:41 Lipitor PO 40 mg QHS LUZ Administration Diphenhydramine HCl 50 mg 09/18/18 22:00 10/10/18 21:40 Benadryl PO 50 mg HS LUZ Administration Divalproex Sodium 500 mg 09/18/18 10:00 10/11/18 13:[address] PO 500 mg BID LUZ Administration Enoxaparin Sodium 30 mg 10/11/18 10:00 10/11/18 13:05 Lovenox SUB-Q 30 mg QDAY LUZ Administration Epoetin Luis 20,000 unit 09/26/18 12:23 10/08/18 13:15 Procrit SUB-Q 20,000 unit KUSHAL PRN Administration hemodialysis Furosemide 80 mg 09/29/18 06:00 10/11/18 08:41 Lasix PO Not Given 0600,1800 LUZ Haloperidol 5 mg 09/25/18 22:00 10/10/18 21:40 Haldol PO 5 mg HS LUZ Administration Hydralazine HCl 10 mg 09/22/18 06:28 09/22/18 12:12 Apresoline IV 10 mg Q4H PRN Administration systolic b/p >165 Hydromorphone HCl 0.5 mg 09/18/18 02:40 Dilaudid IV Q3H PRN Pain , Severe (7-10) Sodium Chloride 500 mls @ 0 mls/hr 10/11/18 15:30 Nacl 0.9% 500 Ml IV 10/11/18 21:00 ONCE NR As Directed Sodium Chloride 100 mls @ 999 mls/hr 10/11/18 15:08 Nacl 0.9% IV KUSHAL PRN Hypotension Losartan Potassium 50 mg 10/04/18 10:00 10/11/18 13:04 Cozaar PO 50 mg QDAY LUZ Administration Metoprolol Tartrate 50 mg 10/07/18 13:00 10/11/18 13:04 Lopressor PO 50 mg BID LUZ Administration Ondansetron HCl 4 mg 09/18/18 02:40 10/07/18 03:15 Zofran IV 4 mg Q8H PRN Administration Nausea And Vomiting Oxycodone/Acetaminophen 1 tab 09/18/18 02:40 10/09/18 22:03 Percocet 5/325 PO 1 tab Q6H PRN Administration Pain, Moderate (4-6) Pantoprazole Sodium 40 mg 10/02/18 10:00 10/11/18 13:06 Protonix PO 40 mg DAILY LUZ Administration Sodium Chloride 10 ml 09/18/18 10:00 10/11/18 13:05 Sodium Chloride Flush Syringe 10 Ml IV 10 ml BID LUZ Administration Sodium Chloride 10 ml 09/18/18 02:40 Sodium Chloride Flush Syringe 10 Ml IV PRN PRN LINE FLUSH
[2018-10-11] MEDS ORDERED: NACL 0.9% 500 ML 500 ML IV NR (15:30)
--- NOTE | 2018-10-11 16:29 | Event Note ---
Date: 10/11/18 Received call from Renal pathology: Patient has Tip variant of FSGS, typically the prognosis is good. No tubular injury or chronicity. Tubules are blocked with protein. Will start patient on Steroids.
[2018-10-11] MEDS ORDERED: SOLU-Medrol IV ONE (17:30)
[2018-10-11] MEDS: PROCRIT SUB-Q PRN (19:01)
--- NOTE | 2018-10-11 21:08 | Progress Note ---
Assessment and Plan Assessment and plan: Patient is a 47 yo woman with a history of Obesity, HTN and Schizophrenia who presented to the ER with bilateral leg swelling, SOB and increase in the abdominal girth and weight gain of ~86 pounds in 10 weeks. Patient denies any h/o heart disease or Liver problem. Labs were significant for creatinine of 2.2, Hb 8.5, albumin 1.4 and 3+ protein in the urine. Patient was admitted with provisional diagnosis of Nephrotic syndrome. Nephrology was consulted for further evaluation and recommended Kidney biopsy; which patient refused on multiple occasions so Radiology declined to re-schedule the procedure. Also, During hospital coarse, she was found to have coffee ground emesis and EGD was done on 09/26/18 and showed M-W tear. Her hemoglobin was steadily dropping and she initially refused blood transfusion until Mr. Galeas convinced her to get the blood transfusion and do Hemodialysis which she refuses at times. 09/26/18 EGD Pre-op diagnosis: gi bleed Post-op diagnosis: same Findings: EGD: large hiatal hernia - m-w tear with pigmented area jut above g-e junction - mild gastritis - negative other Procedure: EGD Pathology report: Tip variant of FSGS, No tubular injury or chronicity. Tubules are blocked with protein. = Variant of FSGS- Per pathology report to Telephone Assembler. Patient to be started on Steroids. = DVT OF internal jugular vein- discussed with vascular surgeon considering patient's history of GI bleed, Radha-Mendez tear, recurrent anemia required transfusion patient appears not to be a candidate at this time for anticoagulation. Findings discussed and explained to the patient and she verbalizes understanding will obtain hematology evaluation for possible hypercoagulable workup and any other solution suggestions =Nephrotic syndrome. Urine protein quantification pending. Immunology tests included an SPEP, GBM, Ab, BI, ANCA and complements remains negative. Renal ultrasound negative. Patient unfortunately refused kidney biopsy initially but none is agreeable to it. =ARF, vasomotor nephropathy, poa: Continues on hemodialysis workup for etiology pending =Coffee-ground emesis with Radha Mendez Tear. GI consulted status post 3 units packed red blood cell additional transfusion ordered today. =Acute on chronic Blood loss anemia due to above =Right lower extremity thigh pain. Doppler lower extremities bilaterally negative for DVT =Left breast swelling, unknown at present. Need outpatient Mammogram and U/S =Morbid obesity, bmi 50.4: lifestyle modification =Medical noncompliance. Patient intermittently at times refusing care. Psych/[place] told me she has decision making capacity. =Schizophrenia, Bipolar disorder. Continue current medications.. As above. Psych consulted =Hyperkalemia. Kayexalate. RESOLVED =Sepsis. Left lower lobe pneumonia. Present on admission. Continue IV antibiotics. Etiology secondary to pneumonia and UTI. =Severe protein calorie malnutrition: Consult placed for [employer]. = Thrombocytopenia- Monitor =VRE: ID is following, ordered isolation treated with amoxicillin for 3 days and that 10/01/2018 per ID recommendation Patient is apart of [place] rehab Outreach and ACT Team, call, psychiatrist Dr. Tatum @ [phone] and If Dr. Tatum is not available, call coordinator of care, Rao Galeas [phone]. Disposition: continue inpatient care, needs HD dialysis setup and new placement. Radiology has refused to re-schedule the Kidney biopsy because they have tired 3 times and pt refuses. DVT/GI propy Disposition is problematic in this case. Patient will need a diagnosis of end- stage renal disease for sinus to approve dialysis outpatient. A kidney biopsy is pending to see if this is the true diagnosis. And based on this further recommendations will follow History Interval history: Patient seen and examined, Reports improvement today, no new complaints today. pateint refused transfusion yesterday will try to get it done today Hospitalist Physical - Physical exam Narrative exam: Constitutional: Generalized swelling. anasacar-improved Head: Normocephalic atraumatic Eyes: Pupils are equal round and reactive to light Nose: No enlarged turbinates, no septal deviation. Mouth: Moist mucous membranes. Neck: Supple no thyromegaly. No bruit. No JVD Heart: Regular rate and rhythm, S1-S2 normal. No rubs murmurs or gallop Lungs: Diminished to auscultation bilaterally. no rales or rhonchi Abdomen: Soft, nontender. Bowel sound are present. Edematous Extremities: 2+ edema, no cyanosis, no clubbing. Neuro: Alert oriented Oriented x3. No focal sensory or motor deficit. Skin: No rashes or hyperpigmented spots Musculoskeletal system: No joint pain or swelling Hematological: No petechia or subcutanous hemorrhages. Lymphatic: No generalized lymphadenopathy Psychiatry: Euthymic. Calm. - Constitutional Vitals: Temp Pulse Resp BP Pulse Ox 98.7 F 66 16 147/79 94 10/11/18 19:00 10/11/18 19:00 10/11/18 19:00 10/11/18 19:00 10/11/18 12:12 General appearance: Present: mild distress (with right neck pressure) Results - Labs CBC & Chem 7: 10/11/18 07:46 10/10/18 06:41 Labs: Laboratory Last Values WBC 5.7 K/mm3 (4.5-11.0) 10/11/18 07:46 RBC 2.40 M/mm3 (3.65-5.03) L 10/11/18 07:46 Hgb 6.6 gm/dl (10.1-14.3) L 10/11/18 07:46 Hct 20.8 % (30.3-42.9) L 10/11/18 07:46 MCV 87 fl (79-97) 10/11/18 07:46 MCH 27 pg (28-32) L 10/11/18 07:46 MCHC 32 % (30-34) 10/11/18 07:46 RDW 21.1 % (13.2-15.2) H 10/11/18 07:46 Plt Count 132 K/mm3 (140-440) L 10/11/18 07:46 Lymph % (Auto) 24.2 % (13.4-35.0) 09/29/18 05:07 [place] % (Auto) [employer] [employer] Director 10/07/18 13:11 Eos % (Auto) 1.7 % (0.0-4.3) 09/29/18 05:07 Baso % (Auto) 0.3 % (0.0-1.8) 09/29/18 05:07 Lymph # 1.4 K/mm3 (1.2-5.4) 09/29/18 05:07 [place] # 0.9 K/mm3 (0.0-0.8) H 09/29/18 05:07 Eos # 0.1 K/mm3 (0.0-0.4) 09/29/18 05:07 Baso # 0.0 K/mm3 (0.0-0.1) 09/29/18 05:07 Add Manual Diff Complete 10/07/18 13:11 Total Counted 100 10/07/18 13:11 Seg Neutrophils % 58.2 % (40.0-70.0) 09/29/18 05:07 Seg Neuts % (Manual) 70.0 % (40.0-70.0) 10/07/18 13:11 Band Neutrophils % 1.0 % 10/07/18 13:11 Lymphocytes % (Manual) 10.0 % (13.4-35.0) L 10/07/18 13:11 Reactive Lymphs % (Man) 0 % 10/07/18 13:11 Monocytes % (Manual) 18.0 % (0.0-7.3) H 10/07/18 13:11 Eosinophils % (Manual) 0 % (0.0-4.3) 10/07/18 13:11 Basophils % (Manual) 0 % (0.0-1.8) 10/07/18 13:11 Metamyelocytes % 0 % 10/07/18 13:11 Myelocytes % 1.0 % 10/07/18 13:11 Promyelocytes % 0 % 10/07/18 13:11 Blast Cells % 0 % 10/07/18 13:11 Nucleated RBC % 2.0 % (0.0-0.9) H 10/07/18 13:11 Seg Neutrophils # 3.5 K/mm3 (1.8-7.7) 09/29/18 05:07 Seg Neutrophils # Man 4.7 K/mm3 (1.8-7.7) 10/07/18 13:11 Band Neutrophils # 0.1 K/mm3 10/07/18 13:11 Lymphocytes # (Manual) 0.7 K/mm3 (1.2-5.4) L 10/07/18 13:11 Abs React Lymphs (Man) 0.0 K/mm3 10/07/18 13:11 Monocytes # (Manual) 1.2 K/mm3 (0.0-0.8) H 10/07/18 13:11 Eosinophils # (Manual) 0.0 K/mm3 (0.0-0.4) 10/07/18 13:11 Basophils # (Manual) 0.0 K/mm3 (0.0-0.1) 10/07/18 13:11 Metamyelocytes # 0.0 K/mm3 10/07/18 13:11 Myelocytes # 0.1 K/mm3 10/07/18 13:11 Promyelocytes # 0.0 K/mm3 10/07/18 13:11 Blast Cells # 0.0 K/mm3 10/07/18 13:11 WBC Morphology Not Reportable 10/07/18 13:11 Hypersegmented Neuts Not Reportable 10/07/18 13:11 Hyposegmented Neuts Not Reportable 10/07/18 13:11 Hypogranular Neuts Not Reportable 10/07/18 13:11 Smudge Cells Not Reportable 10/07/18 13:11 Toxic Granulation Not Reportable 10/07/18 13:11 Toxic Vacuolation Not Reportable 10/07/18 13:11 Dohle Bodies Not Reportable 10/07/18 13:11 Pelger-Huet Anomaly Not Reportable 10/07/18 13:11 Latasha Rods Not Reportable 10/07/18 13:11 Platelet Estimate Consistent w auto 10/07/18 13:11 Clumped Platelets Not Reportable 10/07/18 13:11 Plt Clumps, EDTA Not Reportable 10/07/18 13:11 Large Platelets Not Reportable 10/07/18 13:11 Giant Platelets Not Reportable 10/07/18 13:11 Platelet Satelliting Not Reportable 10/07/18 13:11 Plt Morphology Comment Not Reportable 10/07/18 13:11 RBC Morphology Not Reportable 10/07/18 13:11 Dimorphic RBCs Not Reportable 10/07/18 13:11 Polychromasia Not Reportable 10/07/18 13:11 Hypochromasia Not Reportable 10/07/18 13:11 Poikilocytosis Not Reportable 10/07/18 13:11 Anisocytosis Not Reportable 10/07/18 13:11 Microcytosis 1+ 10/07/18 13:11 Macrocytosis Not Reportable 10/07/18 13:11 Spherocytes Not Reportable 10/07/18 13:11 Pappenheimer Bodies Not Reportable 10/07/18 13:11 Sickle Cells Not Reportable 10/07/18 13:11 Target Cells Not Reportable 10/07/18 13:11 Tear Drop Cells Not Reportable 10/07/18 13:11 Ovalocytes Not Reportable 10/07/18 13:11 Helmet Cells Not Reportable 10/07/18 13:11 [place] Bodies Not Reportable 10/07/18 13:11 [place] Rings Not Reportable 10/07/18 13:11 [place] Cells Not Reportable 10/07/18 13:11 Bite Cells Not Reportable 10/07/18 13:11 Crenated Cell Not Reportable 10/07/18 13:11 Elliptocytes Not Reportable 10/07/18 13:11 Acanthocytes (Spur) Not Reportable 10/07/18 13:11 Rouleaux Not Reportable 10/07/18 13:11 Hemoglobin C Crystals Not Reportable 10/07/18 13:11 Schistocytes Not Reportable 10/07/18 13:11 Malaria parasites Not Reportable 10/07/18 13:11 Paul Bodies Not Reportable 10/07/18 13:11 Hem Pathologist Commnt No 10/07/18 13:11 PT 13.4 Sec. (12.2-14.9) 10/10/18 09:01 INR 0.96 (0.87-1.13) 10/10/18 09:01 APTT 25.0 Sec. (24.2-36.6) 10/10/18 09:01 POC ABG pH 7.434 (7.35-7.45) 10/05/18 18:03 POC ABG pCO2 43.4 (35-45) 10/05/18 18:03 POC ABG pO2 57 (80-105) L 10/05/18 18:03 POC ABG HCO3 29.0 (22-26 mml/L) 10/05/18 18:03 POC ABG Total CO2 30 (23-27mmol/L) 10/05/18 18:03 POC ABG O2 Sat 90 10/05/18 18:03 POC ABG Base Excess 5 ((-2) - (+3)mmol/L) 10/05/18 18:03 FiO2 21 % 10/05/18 18:03 Sodium 138 mmol/L (137-145) 10/10/18 06:41 Potassium 4.3 mmol/L (3.6-5.0) 10/10/18 06:41 Chloride 102.8 mmol/L (98-107) 10/10/18 06:41 Carbon Dioxide 27 mmol/L (22-30) 10/10/18 06:41 Anion Gap 13 mmol/L 10/10/18 06:41 BUN 18 mg/dL (7-17) H 10/10/18 06:41 Creatinine 5.6 mg/dL (0.7-1.2) H 10/10/18 06:41 Estimated GFR 10 ml/min 10/10/18 06:41 BUN/Creatinine Ratio 3 % 10/10/18 06:41 Glucose 83 mg/dL (65-100) 10/10/18 06:41 Calcium 6.8 mg/dL (8.4-10.2) L 10/10/18 06:41 Phosphorus 4.60 mg/dL (2.5-4.5) H 09/27/18 07:42 Magnesium 2.60 mg/dL (1.7-2.3) H 09/17/18 15:17 Total Bilirubin < 0.20 mg/dL (0.1-1.2) 10/05/18 06:50 AST 14 units/L (5-40) 10/05/18 06:50 ALT 7 units/L (7-56) 10/05/18 06:50 Alkaline Phosphatase 52 units/L (35-129) 10/05/18 06:50 Total Creatine Kinase 559 units/L (30-135) H 09/26/18 07:17 Troponin T 0.012 ng/mL (0.00-0.029) 09/17/18 15:17 NT-Pro-B Natriuret Pep 992.5 pg/mL (0-450) H 09/17/18 15:17 Serum Total Protein 3.4 g/dL (6.1-8.1) L 09/19/18 05:45 Total Protein 4.1 g/dL (6.3-8.2) L 10/05/18 06:50 Albumin 1.5 g/dL (3.9-5) L 10/05/18 06:50 Albumin/Globulin Ratio 0.6 % 10/05/18 06:50 Qurxd-3-Ltudutcfy 0.3 g/dL (0.2-0.3) 09/19/18 05:45 Zmmdd-0-Omxiksjdm 0.8 g/dL (0.5-0.9) 09/19/18 05:45 Beta Globulins 0.4 g/dL (0.2-0.5) 09/19/18 05:45 Gamma Globulins 0.5 g/dL (0.8-1.7) L 09/19/18 05:45 Abnorm Protein Band 1 see below 09/19/18 05:45 PEP Interpretation see below H 09/19/18 05:45 Amylase 53 units/L (27-131) 09/25/18 13:53 Lipase 48 units/L (13-60) 09/25/18 13:53 HCG, Qual Negative (Negative) 09/25/18 13:53 PTH Intact 46.07 pg/mL (15-65) 09/19/18 05:45 Urine Color Yellow (Yellow) 09/17/18 17:18 Urine Turbidity Cloudy (Clear) 09/17/18 17:18 Urine pH 5.0 (5.0-7.0) 09/17/18 17:18 Ur Specific [place] 1.029 (1.003-1.030) 09/17/18 17:18 Urine Protein >500 mg/dL (Negative) 09/17/18 17:18 Urine Glucose (UA) Neg mg/dL (Negative) 09/17/18 17:18 Urine Ketones Tr mg/dL (Negative) 09/17/18 17:18 Urine Blood Sm (Negative) 09/17/18 17:18 Urine Nitrite Neg (Negative) 09/17/18 17:18 Urine Bilirubin Neg (Negative) 09/17/18 17:18 Urine Urobilinogen < 2.0 mg/dL (<2.0) 09/17/18 17:18 Ur Leukocyte Esterase Neg (Negative) 09/17/18 17:18 Urine WBC (Auto) 15.0 /HPF (0.0-6.0) H 09/17/18 17:18 Urine RBC (Auto) 13.0 /HPF (0.0-6.0) 09/17/18 17:18 U Epithel Cells (Auto) 6.0 /HPF (0-13.0) 09/17/18 17:18 Urine Bacteria (Auto) 2+ /HPF (Negative) 09/17/18 17:18 Urine WBC Clumps 2+ /HPF 09/17/18 17:18 Hyaline Casts 6 /LPF 09/17/18 17:18 Urine Mucus Few /HPF 03/04/19 17:18 Urine Yeast (Budding) 2+ /HPF 09/17/18 17:18 Urine Eosinophils None seen (None Seen) 09/18/18 10:30 Urine Total Volume 475 ml 09/18/18 10:30 Urine Creatinine 97.5 mg/dL (0.1-20.0) H 09/21/18 07:00 Ur Creatinine 24 Hour 0.7 (0.8-2.8) L 09/18/18 10:30 Ur Total Protein 24 Hr 1073.50 mg/dL (2-200) H 09/18/18 10:30 Protein/Creatinin Ratio 7.26 09/21/18 07:00 Urine Sodium 53 mmol/L 09/21/18 07:00 Urine Urea Nitrogen 467 09/18/18 10:30 Ur Urea Nitrogen 24 Hr 2.22 09/18/18 10:30 Urine Total Protein 708 mg/dL (5-11.8) H 09/21/18 07:00 Urine Opiates Screen Presumptive negative 09/17/18 17:18 Urine Methadone Screen Presumptive negative 09/17/18 17:18 Ur Barbiturates Screen Presumptive negative 09/17/18 17:18 Valproic Acid 13.2 ug/mL (50-100) L 09/26/18 07:17 Ur Phencyclidine Scrn Presumptive negative 09/17/18 17:18 Ur Amphetamines Screen Presumptive negative 09/17/18 17:18 U Benzodiazepines Scrn Presumptive negative 09/17/18 17:18 Urine Cocaine Screen Presumptive negative 09/17/18 17:18 U Marijuana (THC) Screen Presumptive negative 09/17/18 17:18 Drugs of Abuse Note Disclamer 09/17/18 17:18 BI Screen Negative (Negative) 09/19/18 05:45 Proteinase 3 (PR3) Ab <1.0 AI (<1.0) 09/19/18 05:45 Myeloperoxidase Ab <1.0 AI (<1.0) 09/19/18 05:45 Glomerular Base Mem IgG See scanned result 09/19/18 05:45 Complement C3 143 mg/dL (83-193) 09/19/18 05:45 Complement C4 56 mg/dL (15-57) 09/19/18 05:45 Hepatitis A IgM Ab Non-reactive (NonReactive) 09/19/18 05:45 Hep Bs Antigen Non-reactive (Negative) 09/19/18 05:45 Hep B Core IgM Ab Non-reactive (NonReactive) 09/19/18 05:45 Hepatitis C Antibody Non-reactive (NonReactive) 09/19/18 05:45 HIV 1&2 Antibody Rapid Non react (Non React) 09/27/18 07:42 HIV P24 Antigen Non react (Non React) 09/27/18 07:42 Blood Type O POSITIVE 10/10/18 09:01 Antibody Screen Negative 10/10/18 09:01 Crossmatch See Detail 10/10/18 09:01 Active Medications - Current Medications Current Medications: Generic Name Dose Route Start Last Admin Trade Name Freq PRN Reason Stop Dose Admin Acetaminophen 650 mg 09/18/18 02:40 09/27/18 05:36 Tylenol PO 650 mg Q4H PRN Administration Pain MILD(1-3)/Fever >100.5/MENDOZA Atorvastatin Calcium 40 mg 09/18/18 22:00 10/10/18 21:41 Lipitor PO 40 mg QHS LUZ Administration Diphenhydramine HCl 50 mg 09/18/18 22:00 10/10/18 21:40 Benadryl PO 50 mg HS LUZ Administration Divalproex Sodium 500 mg 09/18/18 10:00 10/11/18 13:[address] PO 500 mg BID LUZ Administration Enoxaparin Sodium 30 mg 10/11/18 10:00 10/11/18 13:05 Lovenox SUB-Q 30 mg QDAY LUZ Administration Epoetin Luis 20,000 unit 09/26/18 12:23 10/11/18 19:01 Procrit SUB-Q 20,000 unit KUSHAL PRN Administration hemodialysis Furosemide 80 mg 09/29/18 06:00 10/11/18 19:11 Lasix PO 80 mg 0600,1800 LUZ Administration Haloperidol 5 mg 09/25/18 22:00 10/10/18 21:40 Haldol PO 5 mg HS LUZ Administration Hydralazine HCl 10 mg 09/22/18 06:28 09/22/18 12:12 Apresoline IV 10 mg Q4H PRN Administration systolic b/p >165 Hydromorphone HCl 0.5 mg 09/18/18 02:40 Dilaudid IV Q3H PRN Pain , Severe (7-10) Sodium Chloride 100 mls @ 999 mls/hr 10/11/18 15:08 Nacl 0.9% IV KUSHAL PRN Hypotension Losartan Potassium 50 mg 10/04/18 10:00 10/11/18 13:04 Cozaar PO 50 mg QDAY LUZ Administration Metoprolol Tartrate 50 mg 10/07/18 13:00 10/11/18 13:04 Lopressor PO 50 mg BID LUZ Administration Ondansetron HCl 4 mg 09/18/18 02:40 10/07/18 03:15 Zofran IV 4 mg Q8H PRN Administration Nausea And Vomiting Oxycodone/Acetaminophen 1 tab 09/18/18 02:40 10/09/18 22:03 Percocet 5/325 PO 1 tab Q6H PRN Administration Pain, Moderate (4-6) Pantoprazole Sodium 40 mg 10/02/18 10:00 10/11/18 13:06 Protonix PO 40 mg DAILY LUZ Administration Prednisone 80 mg 10/12/18 10:00 Deltasone PO QDAY LUZ Sodium Chloride 10 ml 09/18/18 10:00 10/11/18 13:05 Sodium Chloride Flush Syringe 10 Ml IV 10 ml BID LUZ Administration Sodium Chloride 10 ml 09/18/18 02:40 Sodium Chloride Flush Syringe 10 Ml IV PRN PRN LINE FLUSH Nutrition/Malnutrition Assess - Dietary Evaluation Nutrition/Malnutrition Findings: Nutrition Notes Start: 09/24/18 15:36 Freq: Status: Active Protocol: Document 10/09/18 14:32 TW (Rec: 10/09/18 14:49 TW [id number]) Co-Sign 10/09/18 14:32 LP Nutrition Notes Initial or Follow up Reassessment Current Diagnosis Sepsis,Respiratory Failure Other Pertinent Diagnosis renal failure on HD, nephrotic syndrome, anemia Current Diet GI Soft Labs/Tests Cr 4.9 Pertinent Medications Lasix Height 5 ft 6 in Weight 141.7 kg [place] Body Weight (kg) 59.09 BMI 50.4 Intake Prior to Admission Excellent Weight Status Morbidly Obese Subjective/Other Information F/U for intakes and renal education. 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 Discussed with pt importance of HD and renal appropriate diet. Percent of energy/protein needs met: 100%/100% Burn Absent Trauma Absent #2 Nutrition Diagnosis Food and nutrition-related knowledge deficit Etiology lack of prior renal education As Evidenced by Signs and Symptoms pt reporting not knowing about renal disease Is patient on ventilator? No Is Patient Ambulatory and/or Out of Bed Yes REE-([place]-St. Jeor-ambulatory/OOB) [ 8655.875 [id number]] Kcal/Kg value to use for calculation 15 Approximate Energy Requirements Using 2126 kcal/Kg Calculation Used for Recommendations Kcal/kg Additional Notes Protein Needs: 71-77g (1.2-1. 3g/kg IBW) Fluid Needs: 1 ml/kcal Nutrition Intervention Change Diet Order: Continue GI soft Teaching Recipient Patient Learning Readiness Fair Teaching Methods Discussion,Handout Response to Teaching Reinforcement needed Education Handouts Provided Importance of HD, Renal diet Barriers to Learning Motivation RD phone number provided Yes Patient aware of follow up options Yes Goal #1 Continue to meet at least 75% of calorie and protein needs via PO intakes Anticipated Discharge Needs: Unable to determine at this time Revisit per MD consult or patient Sign Off request: - Attestation Statement I have reviewed and agreed w/ Malnutrition eval & tx plan: Yes
[2018-10-11] MEDS: HALDOL PO SCH (22:44)
[2018-10-11] MEDS: BENADRYL PO SCH (22:44)
[2018-10-12] MEDS: LASIX PO SCH ×2 (05:50→18:08)
[2018-10-12 09:31] LABS: Hematocrit 27.5 % (30.3-42.9); Hemoglobin 8.8 gm/dl (10.1-14.3); Mean Corpuscular HGB Conc 32 % (30-34); Mean Corpuscular Volume 87 fl (79-97); Platelet Count 148 K/mm3 (140-440); Red Blood Count 3.14 M/mm3 (3.65-5.03)
[2018-10-12 09:33] LABS: Red Cell Distribution Width 20.5 % (13.2-15.2)
[2018-10-12 09:44] LABS: Calcium 7.3 mg/dL (8.4-10.2)
--- NOTE | 2018-10-12 10:22 | Progress Note ---
Assessment and Plan Acute hypoxemic respiratory failure Sepsis secondary to left lower lobe PNA Extreme obesity Nephrotic syndrome Enterococcus UTI Renal failure on HD Nephrotic syndrome, s/p renal biopsy Anemia - wean supplemental oxygen to keep O2 sat's > 90% - continue to monitor off antibiotics -nocturnal BIPAP and prn during the day - bronchodilators per protocol - now dialysis dependent; continue HD/UF per nephrology prescription - no active GI bleeding and was related to Radha Mendez tear - VTE w/up negative -influenza and pneumonia vaccination per protocol -out patient sleep study on discharge -weight loss and lifestyle modifications - continue other care per attending / other consultants. Continue all supportive care No new recommendations, continue al supportive care Discharge planning Subjective Date of service: 10/12/18 Principal diagnosis: coffee-ground emesis Interval history: follow up: Acute hypoxic respiratory failure: Abnormal CXR, Morbid obesity with probable STEFF Seen and examined. Vitals, labs, medications, chart and imaging reviewed. No acute overnight events, off oxygen, uses CPAP on and off. she complains she does does not like the mask. I explained hat s an outpatient there are options other than a full face mask which can be tried. "When can I go home" Objective Vital Signs - 12hr 10/12/18 10/12/18 00:05 05:08 Temperature 99.0 F 98.0 F Pulse Rate 74 Respiratory 20 18 Rate Blood Pressure 145/86 110/62 O2 Sat by Pulse 87 Oximetry Constitutional: no acute distress, alert Eyes: non-icteric ENT: oropharynx moist Neck: supple, no JVD Effort: normal Ascultation: Bilateral: clear, diminished breath sounds Percussion: Bilateral: not dull Cardiovascular: regular rate and rhythm Gastrointestinal: normoactive bowel sounds, soft, non-tender Integumentary: normal Extremities: no cyanosis, no edema Neurologic: non-focal exam, pupils equal and round, CN II-XII normal Psychiatric: depressed CBC and BMP: 10/12/18 09:25 10/12/18 09:25 ABG, PT/INR, D-dimer: ABG POC ABG pH 7.434 (7.35-7.45) 10/05/18 18:03 POC ABG pCO2 43.4 (35-45) 10/05/18 18:03 POC ABG pO2 57 (80-105) L 10/05/18 18:03 POC ABG HCO3 29.0 (22-26 mml/L) 10/05/18 18:03 POC ABG Total CO2 30 (23-27mmol/L) 10/05/18 18:03 POC ABG O2 Sat 90 10/05/18 18:03 PT/INR, D-dimer PT 13.4 Sec. (12.2-14.9) 10/10/18 09:01 INR 0.96 (0.87-1.13) 10/10/18 09:01 Abnormal lab findings: Abnormal Labs 09/17/18 09/17/18 09/17/18 15:17 15:17 15:17 WBC RBC 3.34 L Hgb 9.1 L Hct 27.9 L MCH 27 L RDW 20.5 H Plt Count Lymph % (Auto) [place] % (Auto) 8.8 H [place] # Seg Neuts % (Manual) Lymphocytes % (Manual) Monocytes % (Manual) Nucleated RBC % Lymphocytes # (Manual) Monocytes # (Manual) APTT 22.2 L POC ABG pO2 Potassium Chloride 107.7 H BUN 37 H Creatinine 2.3 H Glucose Calcium 7.4 L Phosphorus Magnesium 2.60 H ALT Total Creatine Kinase NT-Pro-B Natriuret Pep 992.5 H Serum Total Protein Total Protein 4.1 L Albumin 1.3 L Gamma Globulins PEP Interpretation Urine WBC (Auto) Urine Creatinine Ur Creatinine 24 Hour Ur Total Protein 24 Hr Urine Total Protein Valproic Acid Crossmatch 09/17/18 09/18/18 09/18/18 17:18 05:22 05:22 WBC 4.4 L RBC 3.06 L Hgb 8.5 L Hct 25.5 L MCH RDW 20.0 H Plt Count Lymph % (Auto) 36.5 H [place] % (Auto) 12.3 H [place] # Seg Neuts % (Manual) Lymphocytes % (Manual) Monocytes % (Manual) Nucleated RBC % Lymphocytes # (Manual) Monocytes # (Manual) APTT POC ABG pO2 Potassium Chloride 107.2 H BUN 37 H Creatinine 2.2 H Glucose Calcium 7.4 L Phosphorus Magnesium ALT 6 L Total Creatine Kinase NT-Pro-B Natriuret Pep Serum Total Protein Total Protein 3.9 L Albumin 1.4 L Gamma Globulins PEP Interpretation Urine WBC (Auto) 15.0 H Urine Creatinine Ur Creatinine 24 Hour Ur Total Protein 24 Hr Urine Total Protein Valproic Acid Crossmatch 09/18/18 09/19/18 09/19/18 10:30 05:45 05:45 WBC RBC Hgb Hct MCH RDW Plt Count Lymph % (Auto) [place] % (Auto) [place] # Seg Neuts % (Manual) Lymphocytes % (Manual) Monocytes % (Manual) Nucleated RBC % Lymphocytes # (Manual) Monocytes # (Manual) APTT POC ABG pO2 Potassium Chloride BUN 37 H Creatinine 2.1 H Glucose Calcium 7.3 L Phosphorus Magnesium ALT Total Creatine Kinase NT-Pro-B Natriuret Pep Serum Total Protein 3.4 L Total Protein Albumin 1.2 L Gamma Globulins 0.5 L PEP Interpretation see below H Urine WBC (Auto) Urine Creatinine 147.5 H Ur Creatinine 24 Hour 0.7 L Ur Total Protein 24 Hr 1073.50 H Urine Total Protein 226 H Valproic Acid Crossmatch 09/20/18 09/20/18 09/21/18 04:56 15:15 06:13 WBC RBC 2.84 L Hgb 7.8 L Hct 24.1 L MCH 27 L RDW 19.8 H Plt Count Lymph % (Auto) [place] % (Auto) 12.9 H [place] # Seg Neuts % (Manual) Lymphocytes % (Manual) Monocytes % (Manual) Nucleated RBC % Lymphocytes # (Manual) Monocytes # (Manual) APTT POC ABG pO2 Potassium 5.4 H 5.5 H Chloride 108.2 H BUN 38 H Creatinine 2.4 H Glucose Calcium 7.2 L Phosphorus Magnesium ALT Total Creatine Kinase NT-Pro-B Natriuret Pep Serum Total Protein Total Protein Albumin Gamma Globulins PEP Interpretation Urine WBC (Auto) Urine Creatinine Ur Creatinine 24 Hour Ur Total Protein 24 Hr Urine Total Protein Valproic Acid Crossmatch 09/21/18 09/21/18 09/22/18 06:13 07:00 10:12 WBC RBC Hgb Hct MCH RDW Plt Count Lymph % (Auto) [place] % (Auto) [place] # Seg Neuts % (Manual) Lymphocytes % (Manual) Monocytes % (Manual) Nucleated RBC % Lymphocytes # (Manual) Monocytes # (Manual) APTT POC ABG pO2 Potassium 5.2 H Chloride 108.2 H 111.5 H BUN 39 H 40 H Creatinine 2.7 H 3.1 H Glucose Calcium 7.3 L 7.1 L Phosphorus Magnesium ALT Total Creatine Kinase NT-Pro-B Natriuret Pep Serum Total Protein Total Protein Albumin Gamma Globulins PEP Interpretation Urine WBC (Auto) Urine Creatinine 97.5 H Ur Creatinine 24 Hour Ur Total Protein 24 Hr Urine Total Protein 708 H Valproic Acid Crossmatch 09/23/18 09/25/18 09/25/18 04:40 07:30 07:30 WBC RBC 2.55 L Hgb 6.9 L Hct 21.5 L MCH 27 L RDW 19.5 H Plt Count Lymph % (Auto) [place] % (Auto) 12.2 H [place] # Seg Neuts % (Manual) Lymphocytes % (Manual) Monocytes % (Manual) Nucleated RBC % Lymphocytes # (Manual) Monocytes # (Manual) APTT POC ABG pO2 Potassium Chloride 109.1 H BUN 42 H 33 H Creatinine 3.8 H 4.4 H Glucose 102 H Calcium 7.2 L 7.3 L Phosphorus 5.00 H Magnesium ALT Total Creatine Kinase NT-Pro-B Natriuret Pep Serum Total Protein Total Protein Albumin Gamma Globulins PEP Interpretation Urine WBC (Auto) Urine Creatinine Ur Creatinine 24 Hour Ur Total Protein 24 Hr Urine Total Protein Valproic Acid Crossmatch 09/26/18 09/26/18 09/26/18 07:17 07:17 07:17 WBC RBC Hgb 6.7 L Hct 20.0 L MCH RDW Plt Count Lymph % (Auto) [place] % (Auto) [place] # Seg Neuts % (Manual) Lymphocytes % (Manual) Monocytes % (Manual) Nucleated RBC % Lymphocytes # (Manual) Monocytes # (Manual) APTT POC ABG pO2 Potassium Chloride BUN 24 H Creatinine 4.1 H Glucose Calcium 7.0 L Phosphorus Magnesium ALT Total Creatine Kinase 559 H NT-Pro-B Natriuret Pep Serum Total Protein Total Protein Albumin Gamma Globulins PEP Interpretation Urine WBC (Auto) Urine Creatinine Ur Creatinine 24 Hour Ur Total Protein 24 Hr Urine Total Protein Valproic Acid 13.2 L Crossmatch 09/26/18 09/27/18 09/27/18 Unknown 07:42 07:42 WBC RBC 2.16 L Hgb 6.0 L Hct 18.1 L* MCH RDW 18.9 H Plt Count 130 L Lymph % (Auto) [place] % (Auto) 15.8 H [place] # Seg Neuts % (Manual) Lymphocytes % (Manual) Monocytes % (Manual) Nucleated RBC % Lymphocytes # (Manual) Monocytes # (Manual) APTT 36.7 H POC ABG pO2 Potassium Chloride 108.4 H BUN 26 H Creatinine 4.8 H Glucose Calcium 7.1 L Phosphorus 4.60 H Magnesium ALT Total Creatine Kinase NT-Pro-B Natriuret Pep Serum Total Protein Total Protein Albumin Gamma Globulins PEP Interpretation Urine WBC (Auto) Urine Creatinine Ur Creatinine 24 Hour Ur Total Protein 24 Hr Urine Total Protein Valproic Acid Crossmatch 09/27/18 09/28/18 09/29/18 10:43 04:43 05:07 WBC RBC 3.29 L 3.28 L Hgb 8.9 L 8.9 L Hct 27.2 L D 27.1 L MCH 27 L 27 L RDW 19.3 H 19.3 H Plt Count 130 L 133 L Lymph % (Auto) [place] % (Auto) 15.6 H [place] # 0.9 H Seg Neuts % (Manual) Lymphocytes % (Manual) Monocytes % (Manual) Nucleated RBC % Lymphocytes # (Manual) Monocytes # (Manual) APTT POC ABG pO2 Potassium Chloride BUN Creatinine Glucose Calcium Phosphorus Magnesium ALT Total Creatine Kinase NT-Pro-B Natriuret Pep Serum Total Protein Total Protein Albumin Gamma Globulins PEP Interpretation Urine WBC (Auto) Urine Creatinine Ur Creatinine 24 Hour Ur Total Protein 24 Hr Urine Total Protein Valproic Acid Crossmatch See Detail 09/29/18 10/01/18 10/01/18 05:07 06:16 06:16 WBC RBC 3.18 L Hgb 8.6 L Hct 26.2 L MCH 27 L RDW 19.3 H Plt Count Lymph % (Auto) [place] % (Auto) [place] # Seg Neuts % (Manual) Lymphocytes % (Manual) Monocytes % (Manual) Nucleated RBC % Lymphocytes # (Manual) Monocytes # (Manual) APTT POC ABG pO2 Potassium Chloride BUN 22 H 22 H Creatinine 5.4 H 6.0 H Glucose Calcium 7.1 L 7.1 L Phosphorus Magnesium ALT Total Creatine Kinase NT-Pro-B Natriuret Pep Serum Total Protein Total Protein Albumin Gamma Globulins PEP Interpretation Urine WBC (Auto) Urine Creatinine Ur Creatinine 24 Hour Ur Total Protein 24 Hr Urine Total Protein Valproic Acid Crossmatch 10/05/18 10/05/18 10/05/18 06:50 06:50 18:03 WBC RBC 3.08 L Hgb 8.3 L Hct 25.6 L MCH 27 L RDW 19.0 H Plt Count Lymph % (Auto) [place] % (Auto) [place] # Seg Neuts % (Manual) Lymphocytes % (Manual) Monocytes % (Manual) 11.0 H Nucleated RBC % Lymphocytes # (Manual) 0.9 L Monocytes # (Manual) APTT POC ABG pO2 57 L Potassium Chloride BUN Creatinine 4.9 H Glucose Calcium 7.3 L Phosphorus Magnesium ALT Total Creatine Kinase NT-Pro-B Natriuret Pep Serum Total Protein Total Protein 4.1 L Albumin 1.5 L Gamma Globulins PEP Interpretation Urine WBC (Auto) Urine Creatinine Ur Creatinine 24 Hour Ur Total Protein 24 Hr Urine Total Protein Valproic Acid Crossmatch 10/06/18 10/07/18 10/07/18 06:22 13:11 13:11 WBC RBC 3.04 L 3.36 L Hgb 8.1 L 9.0 L Hct 25.2 L 28.0 L MCH 27 L 27 L RDW 19.2 H 20.0 H Plt Count Lymph % (Auto) [place] % (Auto) [place] # Seg Neuts % (Manual) 71.0 H Lymphocytes % (Manual) 10.0 L Monocytes % (Manual) 14.0 H 18.0 H Nucleated RBC % 2.0 H Lymphocytes # (Manual) 1.0 L 0.7 L Monocytes # (Manual) 1.0 H 1.2 H APTT POC ABG pO2 Potassium Chloride BUN Creatinine 4.9 H Glucose 128 H Calcium 7.4 L Phosphorus Magnesium ALT Total Creatine Kinase NT-Pro-B Natriuret Pep Serum Total Protein Total Protein Albumin Gamma Globulins PEP Interpretation Urine WBC (Auto) Urine Creatinine Ur Creatinine 24 Hour Ur Total Protein 24 Hr Urine Total Protein Valproic Acid Crossmatch 10/10/18 10/10/18 10/10/18 06:41 06:41 09:01 WBC RBC 2.40 L Hgb 6.6 L Hct 20.4 L D MCH RDW 20.3 H Plt Count 124 L Lymph % (Auto) [place] % (Auto) [place] # Seg Neuts % (Manual) Lymphocytes % (Manual) Monocytes % (Manual) Nucleated RBC % Lymphocytes # (Manual) Monocytes # (Manual) APTT POC ABG pO2 Potassium Chloride BUN 18 H Creatinine 5.6 H Glucose Calcium 6.8 L Phosphorus Magnesium ALT Total Creatine Kinase NT-Pro-B Natriuret Pep Serum Total Protein Total Protein Albumin Gamma Globulins PEP Interpretation Urine WBC (Auto) Urine Creatinine Ur Creatinine 24 Hour Ur Total Protein 24 Hr Urine Total Protein Valproic Acid Crossmatch See Detail 10/11/18 10/12/18 10/12/18 07:46 09:25 09:25 WBC RBC 2.40 L 3.14 L Hgb 6.6 L 8.8 L Hct 20.8 L 27.5 L D MCH 27 L RDW 21.1 H 20.5 H Plt Count 132 L Lymph % (Auto) [place] % (Auto) [place] # Seg Neuts % (Manual) Lymphocytes % (Manual) Monocytes % (Manual) Nucleated RBC % Lymphocytes # (Manual) Monocytes # (Manual) APTT POC ABG pO2 Potassium Chloride BUN 21 H Creatinine 4.3 H Glucose 141 H Calcium 7.3 L Phosphorus Magnesium ALT Total Creatine Kinase NT-Pro-B Natriuret Pep Serum Total Protein Total Protein Albumin Gamma Globulins PEP Interpretation Urine WBC (Auto) Urine Creatinine Ur Creatinine 24 Hour Ur Total Protein 24 Hr Urine Total Protein Valproic Acid Crossmatch Allied health notes reviewed: nursing
[2018-10-12] MEDS: LOPRESSOR PO SCH ×3 (10:33→22:57)
[2018-10-12] MEDS: COZAAR PO SCH (10:33)
[2018-10-12] MEDS: LOVENOX SUB-Q SCH (10:33)
[2018-10-12] MEDS: DELTASONE PO SCH (10:33)
[2018-10-12] MEDS: SODIUM CHLORIDE FLUSH SYRINGE 10 ML IV SCH ×2 (10:34→22:57)
[2018-10-12] MEDS: PROTONIX PO SCH (10:35)
--- NOTE | 2018-10-12 14:48 | Progress Note ---
Assessment and Plan 1. Acute kidney injury: LUCILA secondary to blocked tubules from Proteinuria. Patient was started on hemodialysis on 09/24/2018 due to worsening renal function, anasarca and suspected pulmonary edema. Last dialyzed yesterday. Patient has been refusing HD / Isolated UF intermittently. S/p exchange of hemodialysis catheter yesterday. Likely she require HD tomorrow. Renal prognosis guarded. 2. Nephrotic syndrome: Kidney bx showed Tip variant FSGS. Started on Steroids yesterday. Monitor renal function. On Lovenox to prevent DVT. Continue ARB and Statin. 3. FEN: Volume overload, UF with HD. On Lasix. Hyperkalemia, improved. 4. VRE bacteriuria. 5. HTN: Monitor BP. 6. Anemia: GI bleed. S/p PRBC. Epogen with HD. 7. Schizophrenia. 8. Medical non-compliance. Subjective Date of service: 10/12/18 Principal diagnosis: coffee-ground emesis Interval history: Patient was seen and examined at the bedside. Doing ok. Objective - Vital Signs Vital signs: Vital Signs - 12hr 10/12/18 10/12/18 10/12/18 05:08 10:46 11:00 Temperature 98.0 F Pulse Rate 74 75 Respiratory 18 20 Rate Blood Pressure 110/62 152/80 O2 Sat by Pulse 87 97 Oximetry 10/12/18 12:00 Temperature 98.2 F Pulse Rate Respiratory 20 Rate Blood Pressure 131/75 O2 Sat by Pulse Oximetry - General Appearance General appearance: well-developed, well-nourished, appears stated age, obese, other (not in distress, right IJ tunnel catheter) EENT: ATNC, PERRL, other (some facial puffiness noted) Neck: supple Respiratory: Present: Clear to Ascultation Cardiology: regular, S1S2, no murmurs Gastrointestinal: normoactive bowel sounds, no tenderness, no distended, obese Integumentary: no rash Neurologic: no focal deficit, no asterixis, alert and oriented x3 Musculoskeletal: other (2+ LE edema noted) - Lab 10/12/18 09:25 10/12/18 09:25 Most recent lab results Calcium 7.3 mg/dL (8.4-10.2) L 10/12/18 09:25 Phosphorus 4.60 mg/dL (2.5-4.5) H 09/27/18 07:42 Magnesium 2.60 mg/dL (1.7-2.3) H 09/17/18 15:17 Urine Creatinine 97.5 mg/dL (0.1-20.0) H 09/21/18 07:00 Ur Total Protein 24 Hr 1073.50 mg/dL (2-200) H 09/18/18 10:30 Urine Sodium 53 mmol/L 09/21/18 07:00 Urine Total Protein 708 mg/dL (5-11.8) H 09/21/18 07:00 Medications & Allergies - Medications Allergies/Adverse Reactions: Allergies No Known Allergies Allergy (Unverified 09/17/18 15:05) Home Medications: Home Medications Medication Instructions Recorded Confirmed Last Taken Type Divalproex Sodium [Depakote] 500 mg PO BID 09/17/18 09/17/18 Unknown History Haldol (Nf) 10 mg PO QHS 09/17/18 10/06/18 Unknown History Invega Sustenna 156 mg IM QMONTH 09/17/18 10/06/18 Unknown History diphenhydrAMINE [Benadryl CAP] 50 mg PO HS 09/17/18 09/17/18 Unknown History Active Medications: Generic Name Dose Route Start Last Admin Trade Name Freq PRN Reason Stop Dose Admin Acetaminophen 650 mg 09/18/18 02:40 09/27/18 05:36 Tylenol PO 650 mg Q4H PRN Administration Pain MILD(1-3)/Fever >100.5/MENDOZA Atorvastatin Calcium 40 mg 09/18/18 22:00 10/11/18 22:44 Lipitor PO 40 mg QHS LUZ Administration Diphenhydramine HCl 50 mg 09/18/18 22:00 10/11/18 22:44 Benadryl PO 50 mg HS LUZ Administration Divalproex Sodium 500 mg 09/18/18 10:00 10/12/18 10:[address] PO 500 mg BID LUZ Administration Enoxaparin Sodium 30 mg 10/11/18 10:00 10/12/18 10:33 Lovenox SUB-Q 30 mg QDAY LUZ Administration Epoetin Luis 20,000 unit 09/26/18 12:23 10/11/18 19:01 Procrit SUB-Q 20,000 unit KUSHAL PRN Administration hemodialysis Furosemide 80 mg 09/29/18 06:00 10/12/18 05:50 Lasix PO Not Given 0600,1800 LUZ Haloperidol 5 mg 09/25/18 22:00 10/11/18 22:44 Haldol PO 5 mg HS LUZ Administration Hydralazine HCl 10 mg 09/22/18 06:28 09/22/18 12:12 Apresoline IV 10 mg Q4H PRN Administration systolic b/p >165 Hydromorphone HCl 0.5 mg 09/18/18 02:40 Dilaudid IV Q3H PRN Pain , Severe (7-10) Sodium Chloride 100 mls @ 999 mls/hr 10/11/18 15:08 Nacl 0.9% IV KUSHAL PRN Hypotension Losartan Potassium 50 mg 10/04/18 10:00 10/12/18 10:33 Cozaar PO 50 mg QDAY LUZ Administration Metoprolol Tartrate 50 mg 10/07/18 13:00 10/12/18 10:33 Lopressor PO 50 mg BID LUZ Administration Ondansetron HCl 4 mg 09/18/18 02:40 10/07/18 03:15 Zofran IV 4 mg Q8H PRN Administration Nausea And Vomiting Oxycodone/Acetaminophen 1 tab 09/18/18 02:40 10/09/18 22:03 Percocet 5/325 PO 1 tab Q6H PRN Administration Pain, Moderate (4-6) Pantoprazole Sodium 40 mg 10/02/18 10:00 10/12/18 10:35 Protonix PO 40 mg DAILY LUZ Administration Prednisone 80 mg 10/12/18 10:00 10/12/18 10:33 Deltasone PO 80 mg QDAY LUZ Administration Sodium Chloride 10 ml 09/18/18 10:00 10/12/18 10:34 Sodium Chloride Flush Syringe 10 Ml IV 10 ml BID LUZ Administration Sodium Chloride 10 ml 09/18/18 02:40 10/11/18 22:43 Sodium Chloride Flush Syringe 10 Ml IV 10 ml PRN PRN Administration LINE FLUSH
--- NOTE | 2018-10-12 18:00 | Progress Note ---
Assessment and Plan Assessment and plan: Patient is a 47 yo woman with a history of Obesity, HTN and Schizophrenia who presented to the ER with bilateral leg swelling, SOB and increase in the abdominal girth and weight gain of ~86 pounds in 10 weeks. Patient denies any h/o heart disease or Liver problem. Labs were significant for creatinine of 2.2, Hb 8.5, albumin 1.4 and 3+ protein in the urine. Patient was admitted with provisional diagnosis of Nephrotic syndrome. Nephrology was consulted for further evaluation and recommended Kidney biopsy; which patient refused on multiple occasions so Radiology declined to re-schedule the procedure. Also, During hospital coarse, she was found to have coffee ground emesis and EGD was done on 09/26/18 and showed M-W tear. Her hemoglobin was steadily dropping and she initially refused blood transfusion until Mr. Galeas convinced her to get the blood transfusion and do Hemodialysis which she refuses at times. 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 Quinn. 09/26/18 EGD Pre-op diagnosis: gi bleed Post-op diagnosis: same Findings: EGD: large hiatal hernia - m-w tear with pigmented area jut above g-e junction - mild gastritis - negative other Procedure: EGD =Nephrotic syndrome. Urine protein quantification pending. Follow BI, ANCA and complements. Renal ultrasound negative. Patient unfortunately refused kidney biopsy. =Coffee-ground emesis with Radha Mendez Tear. GI consulted H&H dropped and she refused blood transfusion today. =Acute on chronic Blood loss anemia due to above =Right lower extremity thigh pain. Doppler lower extremities bilaterally negative for DVT =Left breast swelling, unknown at present. Need outpatient Mammogram and U/S =Morbid obesity, bmi 55.2: lifestyle modification =Medical noncompliance. Patient intermittently at times refusing care. Psych/Mik told me she has decision making capacity. =Schizophrenia, Bipolar disorder. Continue current medications.. As above. Psych consulted =Hyperkalemia. Kayexalate. Recheck BMP in the morning. =Sepsis. Left lower lobe pneumonia. Present on admission. Continue IV antibiotics. Etiology secondary to pneumonia and UTI. =ARF, vasomotor nephropathy, poa =VRE: ID is following, ordered isolation Patient is apart of [facility] Outreach and ACT Team, call, psychiatrist Dr. Tatum @ [phone] and If Dr. Tatum is not available, call coordinator of care, Rao Galeas [phone]. Disposition: continue inpatient care, needs HD dialysis setup and new placement. History Interval history: Patient was seen and examined. Follow-up on current diagnosis of GIB. Overnight uneventful. Patient denies any chest pain, shortness breath, nausea/vomiting or severe headaches. Imaging, nursing note, chart, labs and old chart reviewed. Discussed with patient. Hospitalist Physical - Physical exam Narrative exam: Patient Refused exam today because she had an accident with stool, I notified charge nurse - Constitutional Vitals: Temp Pulse Resp BP Pulse Ox 98.8 F 82 20 140/78 96 10/12/18 17:20 10/12/18 17:22 10/12/18 17:20 10/12/18 17:20 10/12/18 17:22 Results - Labs CBC & Chem 7: 10/12/18 09:25 10/12/18 09:25 Labs: Laboratory Last Values WBC 6.8 K/mm3 (4.5-11.0) 10/12/18 09:25 RBC 3.14 M/mm3 (3.65-5.03) L 10/12/18 09:25 Hgb 8.8 gm/dl (10.1-14.3) L 10/12/18 09:25 Hct 27.5 % (30.3-42.9) L D 10/12/18 09:25 MCV 87 fl (79-97) 10/12/18 09:25 MCH 28 pg (28-32) 10/12/18 09:25 MCHC 32 % (30-34) 10/12/18 09:25 RDW 20.5 % (13.2-15.2) H 10/12/18 09:25 Plt Count 148 K/mm3 (140-440) 10/12/18 09:25 Lymph % (Auto) 24.2 % (13.4-35.0) 09/29/18 05:07 Holt % (Auto) [employer] 10/07/18 13:11 Eos % (Auto) 1.7 % (0.0-4.3) 09/29/18 05:07 Baso % (Auto) 0.3 % (0.0-1.8) 09/29/18 05:07 Lymph # 1.4 K/mm3 (1.2-5.4) 09/29/18 05:07 Holt # 0.9 K/mm3 (0.0-0.8) H 09/29/18 05:07 Eos # 0.1 K/mm3 (0.0-0.4) 09/29/18 05:07 Baso # 0.0 K/mm3 (0.0-0.1) 09/29/18 05:07 Add Manual Diff Complete 10/07/18 13:11 Total Counted 100 10/07/18 13:11 Seg Neutrophils % 58.2 % (40.0-70.0) 09/29/18 05:07 Seg Neuts % (Manual) 70.0 % (40.0-70.0) 10/07/18 13:11 Band Neutrophils % 1.0 % 10/07/18 13:11 Lymphocytes % (Manual) 10.0 % (13.4-35.0) L 10/07/18 13:11 Reactive Lymphs % (Man) 0 % 10/07/18 13:11 Monocytes % (Manual) 18.0 % (0.0-7.3) H 10/07/18 13:11 Eosinophils % (Manual) 0 % (0.0-4.3) 10/07/18 13:11 Basophils % (Manual) 0 % (0.0-1.8) 10/07/18 13:11 Metamyelocytes % 0 % 10/07/18 13:11 Myelocytes % 1.0 % 10/07/18 13:11 Promyelocytes % 0 % 10/07/18 13:11 Blast Cells % 0 % 10/07/18 13:11 Nucleated RBC % 2.0 % (0.0-0.9) H 10/07/18 13:11 Seg Neutrophils # 3.5 K/mm3 (1.8-7.7) 09/29/18 05:07 Seg Neutrophils # Man 4.7 K/mm3 (1.8-7.7) 10/07/18 13:11 Band Neutrophils # 0.1 K/mm3 10/07/18 13:11 Lymphocytes # (Manual) 0.7 K/mm3 (1.2-5.4) L 10/07/18 13:11 Abs React Lymphs (Man) 0.0 K/mm3 10/07/18 13:11 Monocytes # (Manual) 1.2 K/mm3 (0.0-0.8) H 10/07/18 13:11 Eosinophils # (Manual) 0.0 K/mm3 (0.0-0.4) 10/07/18 13:11 Basophils # (Manual) 0.0 K/mm3 (0.0-0.1) 10/07/18 13:11 Metamyelocytes # 0.0 K/mm3 10/07/18 13:11 Myelocytes # 0.1 K/mm3 10/07/18 13:11 Promyelocytes # 0.0 K/mm3 10/07/18 13:11 Blast Cells # 0.0 K/mm3 10/07/18 13:11 WBC Morphology Not Reportable 10/07/18 13:11 Hypersegmented Neuts Not Reportable 10/07/18 13:11 Hyposegmented Neuts Not Reportable 10/07/18 13:11 Hypogranular Neuts Not Reportable 10/07/18 13:11 Smudge Cells Not Reportable 10/07/18 13:11 Toxic Granulation Not Reportable 10/07/18 13:11 Toxic Vacuolation Not Reportable 10/07/18 13:11 Dohle Bodies Not Reportable 10/07/18 13:11 Pelger-Huet Anomaly Not Reportable 10/07/18 13:11 Latasha Rods Not Reportable 10/07/18 13:11 Platelet Estimate Consistent w auto 10/07/18 13:11 Clumped Platelets Not Reportable 10/07/18 13:11 Plt Clumps, EDTA Not Reportable 10/07/18 13:11 Large Platelets Not Reportable 10/07/18 13:11 Giant Platelets Not Reportable 10/07/18 13:11 Platelet Satelliting Not Reportable 10/07/18 13:11 Plt Morphology Comment Not Reportable 10/07/18 13:11 RBC Morphology Not Reportable 10/07/18 13:11 Dimorphic RBCs Not Reportable 10/07/18 13:11 Polychromasia Not Reportable 10/07/18 13:11 Hypochromasia Not Reportable 10/07/18 13:11 Poikilocytosis Not Reportable 10/07/18 13:11 Anisocytosis Not Reportable 10/07/18 13:11 Microcytosis 1+ 10/07/18 13:11 Macrocytosis Not Reportable 10/07/18 13:11 Spherocytes Not Reportable 10/07/18 13:11 Pappenheimer Bodies Not Reportable 10/07/18 13:11 Sickle Cells Not Reportable 10/07/18 13:11 Target Cells Not Reportable 10/07/18 13:11 Tear Drop Cells Not Reportable 10/07/18 13:11 Ovalocytes Not Reportable 10/07/18 13:11 Helmet Cells Not Reportable 10/07/18 13:11 Maldonado-Brewer Bodies Not Reportable 10/07/18 13:11 Picacho Rings Not Reportable 10/07/18 13:11 Richardson Cells Not Reportable 10/07/18 13:11 Bite Cells Not Reportable 10/07/18 13:11 Crenated Cell Not Reportable 10/07/18 13:11 Elliptocytes Not Reportable 10/07/18 13:11 Acanthocytes (Spur) Not Reportable 10/07/18 13:11 Rouleaux Not Reportable 10/07/18 13:11 Hemoglobin C Crystals Not Reportable 10/07/18 13:11 Schistocytes Not Reportable 10/07/18 13:11 Malaria parasites Not Reportable 10/07/18 13:11 Paul Bodies Not Reportable 10/07/18 13:11 Hem Pathologist Commnt No 10/07/18 13:11 PT 13.4 Sec. (12.2-14.9) 10/10/18 09:01 INR 0.96 (0.87-1.13) 10/10/18 09:01 APTT 25.0 Sec. (24.2-36.6) 10/10/18 09:01 POC ABG pH 7.434 (7.35-7.45) 10/05/18 18:03 POC ABG pCO2 43.4 (35-45) 10/05/18 18:03 POC ABG pO2 57 (80-105) L 10/05/18 18:03 POC ABG HCO3 29.0 (22-26 mml/L) 10/05/18 18:03 POC ABG Total CO2 30 (23-27mmol/L) 10/05/18 18:03 POC ABG O2 Sat 90 10/05/18 18:03 POC ABG Base Excess 5 ((-2) - (+3)mmol/L) 10/05/18 18:03 FiO2 21 % 10/05/18 18:03 Sodium 139 mmol/L (137-145) 10/12/18 09:25 Potassium 4.6 mmol/L (3.6-5.0) 10/12/18 09:25 Chloride 101.5 mmol/L (98-107) 10/12/18 09:25 Carbon Dioxide 30 mmol/L (22-30) 10/12/18 09:25 Anion Gap 12 mmol/L 10/12/18 09:25 BUN 21 mg/dL (7-17) H 10/12/18 09:25 Creatinine 4.3 mg/dL (0.7-1.2) H 10/12/18 09:25 Estimated GFR 13 ml/min 10/12/18 09:25 BUN/Creatinine Ratio 5 % 10/12/18 09:25 Glucose 141 mg/dL (65-100) H 10/12/18 09:25 Calcium 7.3 mg/dL (8.4-10.2) L 10/12/18 09:25 Phosphorus 4.60 mg/dL (2.5-4.5) H 09/27/18 07:42 Magnesium 2.60 mg/dL (1.7-2.3) H 09/17/18 15:17 Total Bilirubin < 0.20 mg/dL (0.1-1.2) 10/05/18 06:50 AST 14 units/L (5-40) 10/05/18 06:50 ALT 7 units/L (7-56) 10/05/18 06:50 Alkaline Phosphatase 52 units/L (35-129) 10/05/18 06:50 Total Creatine Kinase 559 units/L (30-135) H 09/26/18 07:17 Troponin T 0.012 ng/mL (0.00-0.029) 09/17/18 15:17 NT-Pro-B Natriuret Pep 992.5 pg/mL (0-450) H 09/17/18 15:17 Serum Total Protein 3.4 g/dL (6.1-8.1) L 09/19/18 05:45 Total Protein 4.1 g/dL (6.3-8.2) L 10/05/18 06:50 Albumin 1.5 g/dL (3.9-5) L 10/05/18 06:50 Albumin/Globulin Ratio 0.6 % 10/05/18 06:50 Skzef-2-Iriwaawrq 0.3 g/dL (0.2-0.3) 09/19/18 05:45 Eaxxj-1-Qznrgznhs 0.8 g/dL (0.5-0.9) 09/19/18 05:45 Beta Globulins 0.4 g/dL (0.2-0.5) 09/19/18 05:45 Gamma Globulins 0.5 g/dL (0.8-1.7) L 09/19/18 05:45 Abnorm Protein Band 1 see below 09/19/18 05:45 PEP Interpretation see below H 09/19/18 05:45 Amylase 53 units/L (27-131) 09/25/18 13:53 Lipase 48 units/L (13-60) 09/25/18 13:53 HCG, Qual Negative (Negative) 09/25/18 13:53 PTH Intact 46.07 pg/mL (15-65) 09/19/18 05:45 Urine Color Yellow (Yellow) 09/17/18 17:18 Urine Turbidity Cloudy (Clear) 09/17/18 17:18 Urine pH 5.0 (5.0-7.0) 09/17/18 17:18 Ur Specific Malone 1.029 (1.003-1.030) 09/17/18 17:18 Urine Protein >500 mg/dL (Negative) 09/17/18 17:18 Urine Glucose (UA) Neg mg/dL (Negative) 09/17/18 17:18 Urine Ketones Tr mg/dL (Negative) 09/17/18 17:18 Urine Blood Sm (Negative) 09/17/18 17:18 Urine Nitrite Neg (Negative) 09/17/18 17:18 Urine Bilirubin Neg (Negative) 09/17/18 17:18 Urine Urobilinogen < 2.0 mg/dL (<2.0) 09/17/18 17:18 Ur Leukocyte Esterase Neg (Negative) 09/17/18 17:18 Urine WBC (Auto) 15.0 /HPF (0.0-6.0) H 09/17/18 17:18 Urine RBC (Auto) 13.0 /HPF (0.0-6.0) 09/17/18 17:18 U Epithel Cells (Auto) 6.0 /HPF (0-13.0) 09/17/18 17:18 Urine Bacteria (Auto) 2+ /HPF (Negative) 09/17/18 17:18 Urine WBC Clumps 2+ /HPF 09/17/18 17:18 Hyaline Casts 6 /LPF 09/17/18 17:18 Urine Mucus Few /HPF 09/17/18 17:18 Urine Yeast (Budding) 2+ /HPF 09/17/18 17:18 Urine Eosinophils None seen (None Seen) 09/18/18 10:30 Urine Total Volume 475 ml 09/18/18 10:30 Urine Creatinine 97.5 mg/dL (0.1-20.0) H 09/21/18 07:00 Ur Creatinine 24 Hour 0.7 (0.8-2.8) L 09/18/18 10:30 Ur Total Protein 24 Hr 1073.50 mg/dL (2-200) H 09/18/18 10:30 Protein/Creatinin Ratio 7.26 09/21/18 07:00 Urine Sodium 53 mmol/L 09/21/18 07:00 Urine Urea Nitrogen 467 09/18/18 10:30 Ur Urea Nitrogen 24 Hr 2.22 09/18/18 10:30 Urine Total Protein 708 mg/dL (5-11.8) H 09/21/18 07:00 Urine Opiates Screen Presumptive negative 09/17/18 17:18 Urine Methadone Screen Presumptive negative 09/17/18 17:18 Ur Barbiturates Screen Presumptive negative 09/17/18 17:18 Valproic Acid 13.2 ug/mL (50-100) L 09/26/18 07:17 Ur Phencyclidine Scrn Presumptive negative 09/17/18 17:18 Ur Amphetamines Screen Presumptive negative 09/17/18 17:18 U Benzodiazepines Scrn Presumptive negative 09/17/18 17:18 Urine Cocaine Screen Presumptive negative 09/17/18 17:18 U Marijuana (THC) Screen Presumptive negative 09/17/18 17:18 Drugs of Abuse Note Disclamer 09/17/18 17:18 BI Screen Negative (Negative) 09/19/18 05:45 Proteinase 3 (PR3) Ab <1.0 AI (<1.0) 09/19/18 05:45 Myeloperoxidase Ab <1.0 AI (<1.0) 09/19/18 05:45 Glomerular Base Mem IgG See scanned result 09/19/18 05:45 Complement C3 143 mg/dL (83-193) 09/19/18 05:45 Complement C4 56 mg/dL (15-57) 09/19/18 05:45 Hepatitis A IgM Ab Non-reactive (NonReactive) 09/19/18 05:45 Hep Bs Antigen Non-reactive (Negative) 09/19/18 05:45 Hep B Core IgM Ab Non-reactive (NonReactive) 09/19/18 05:45 Hepatitis C Antibody Non-reactive (NonReactive) 09/19/18 05:45 HIV 1&2 Antibody Rapid Non react (Non React) 09/27/18 07:42 HIV P24 Antigen Non react (Non React) 09/27/18 07:42 Blood Type O POSITIVE 10/10/18 09:01 Antibody Screen Negative 10/10/18 09:01 Crossmatch See Detail 10/10/18 09:01 Active Medications - Current Medications Current Medications: Generic Name Dose Route Start Last Admin Trade Name Freq PRN Reason Stop Dose Admin Acetaminophen 650 mg 09/18/18 02:40 09/27/18 05:36 Tylenol PO 650 mg Q4H PRN Administration Pain MILD(1-3)/Fever >100.5/MENDOZA Atorvastatin Calcium 40 mg 09/18/18 22:00 10/11/18 22:44 Lipitor PO 40 mg QHS LUZ Administration Diphenhydramine HCl 50 mg 09/18/18 22:00 10/11/18 22:44 Benadryl PO 50 mg HS LUZ Administration Divalproex Sodium 500 mg 09/18/18 10:00 10/12/18 10:[address] PO 500 mg BID LUZ Administration Enoxaparin Sodium 30 mg 10/11/18 10:00 10/12/18 10:33 Lovenox SUB-Q 30 mg QDAY LUZ Administration Epoetin Luis 20,000 unit 09/26/18 12:23 10/11/18 19:01 Procrit SUB-Q 20,000 unit KUSHAL PRN Administration hemodialysis Furosemide 80 mg 09/29/18 06:00 10/12/18 05:50 Lasix PO Not Given 0600,1800 LUZ Haloperidol 5 mg 09/25/18 22:00 10/11/18 22:44 Haldol PO 5 mg HS LUZ Administration Hydralazine HCl 10 mg 09/22/18 06:28 09/22/18 12:12 Apresoline IV 10 mg Q4H PRN Administration systolic b/p >165 Hydromorphone HCl 0.5 mg 09/18/18 02:40 Dilaudid IV Q3H PRN Pain , Severe (7-10) Sodium Chloride 100 mls @ 999 mls/hr 10/11/18 15:08 Nacl 0.9% IV KUSHAL PRN Hypotension Losartan Potassium 50 mg 10/04/18 10:00 10/12/18 10:33 Cozaar PO 50 mg QDAY LUZ Administration Metoprolol Tartrate 50 mg 10/07/18 13:00 10/12/18 10:33 Lopressor PO 50 mg BID LUZ Administration Ondansetron HCl 4 mg 09/18/18 02:40 10/07/18 03:15 Zofran IV 4 mg Q8H PRN Administration Nausea And Vomiting Oxycodone/Acetaminophen 1 tab 09/18/18 02:40 10/09/18 22:03 Percocet 5/325 PO 1 tab Q6H PRN Administration Pain, Moderate (4-6) Pantoprazole Sodium 40 mg 10/02/18 10:00 10/12/18 10:35 Protonix PO 40 mg DAILY LUZ Administration Prednisone 80 mg 10/12/18 10:00 10/12/18 10:33 Deltasone PO 80 mg QDAY LUZ Administration Sodium Chloride 10 ml 09/18/18 10:00 10/12/18 10:34 Sodium Chloride Flush Syringe 10 Ml IV 10 ml BID LUZ Administration Sodium Chloride 10 ml 09/18/18 02:40 10/11/18 22:43 Sodium Chloride Flush Syringe 10 Ml IV 10 ml PRN PRN Administration LINE FLUSH Nutrition/Malnutrition Assess - Dietary Evaluation Nutrition/Malnutrition Findings: Nutrition Notes Start: 09/24/18 15:36 Freq: Status: Active Protocol: Document 10/09/18 14:32 TW (Rec: 10/09/18 14:49 TW [id number]) Co-Sign 10/09/18 14:32 LP Nutrition Notes Initial or Follow up Reassessment Current Diagnosis Sepsis,Respiratory Failure Other Pertinent Diagnosis renal failure on HD, nephrotic syndrome, anemia Current Diet GI Soft Labs/Tests Cr 4.9 Pertinent Medications Lasix Height 5 ft 6 in Weight 141.7 kg [place] Body Weight (kg) 59.09 BMI 50.4 Intake Prior to Admission Excellent Weight Status Morbidly Obese Subjective/Other Information F/U for intakes and renal education. Pt reports eating 100% of meals and having a good appetite [employer]. Discussed with pt importance of HD and renal appropriate diet. Percent of energy/protein needs met: 100%/100% Burn Absent Trauma Absent #2 Nutrition Diagnosis Food and nutrition-related knowledge deficit Etiology lack of prior renal education As Evidenced by Signs and Symptoms pt reporting not knowing about renal disease Is patient on ventilator? No Is Patient Ambulatory and/or Out of Bed Yes REE-([place]. Jeor-ambulatory/OOB) [ 2695.875 NUTR.[id number]] Kcal/Kg value to use for calculation 15 Approximate Energy Requirements Using 2126 kcal/Kg Calculation Used for Recommendations Kcal/kg Additional Notes Protein Needs: 71-77g (1.2-1. 3g/kg IBW) Fluid Needs: 1 ml/kcal Nutrition Intervention Change Diet Order: Continue GI soft Teaching Recipient Patient Learning Readiness Fair Teaching Methods Discussion,Handout Response to Teaching Reinforcement needed Education Handouts Provided Importance of HD, Renal diet Barriers to Learning Motivation RD phone number provided Yes Patient aware of follow up options Yes Goal #1 Continue to meet at least 75% of calorie and protein needs via PO intakes Anticipated Discharge Needs: Unable to determine at this time Revisit per MD consult or patient Sign Off request:
[2018-10-12] MEDS: HALDOL PO SCH (22:58)
[2018-10-12] MEDS: BENADRYL PO SCH (22:58)
[2018-10-13] MEDS: LASIX PO SCH ×2 (06:22→17:11)
[2018-10-13 08:10] LABS: Hematocrit 22.5 % (30.3-42.9); Hemoglobin 7.4 gm/dl (10.1-14.3); Mean Corpuscular HGB Conc 33 % (30-34); Mean Corpuscular Volume 88 fl (79-97); Platelet Count 137 K/mm3 (140-440); Red Blood Count 2.55 M/mm3 (3.65-5.03)
[2018-10-13 08:14] LABS: Red Cell Distribution Width 23.1 % (13.2-15.2)
[2018-10-13 08:26] LABS: Calcium 6.9 mg/dL (8.4-10.2)
[2018-10-13] MEDS: DELTASONE PO SCH (09:46)
[2018-10-13] MEDS: LOPRESSOR PO SCH ×2 (09:46→23:01)
[2018-10-13] MEDS: COZAAR PO SCH (09:46)
[2018-10-13] MEDS: PROTONIX PO SCH (09:47)
[2018-10-13] MEDS: SODIUM CHLORIDE FLUSH SYRINGE 10 ML IV SCH ×4 (09:47→23:21)
[2018-10-13] MEDS: LOVENOX SUB-Q SCH (10:00)
--- NOTE | 2018-10-13 11:38 | Progress Note ---
Assessment and Plan Acute hypoxemic respiratory failure Sepsis secondary to left lower lobe PNA Extreme obesity Nephrotic syndrome Enterococcus UTI Renal failure on HD Nephrotic syndrome Anemia (repeat CXR reviewed; RIJ vascath and likely small pleural effusions; suggests volume overload over pneumonia) - continue supplemental oxygen to keep O2 sat's > 90% (advised to keep it on especially while asleep) - strongly counseled using BIPAP qhs for clinical STEFF S&S - repeat ABG and address as necessary - continue HD/UF for toxin clearance and volume control - diuretics per farm planner - prn albuterol ordered - weight loss counseled - now dialysis dependent; continue HD/UF per nephrology prescription - no active GI bleeding and was related to Radha Mendez tear - VTE w/up negative - continue other care per attending / other consultants .... re-evaluate in am & prn Subjective Date of service: 10/13/18 Principal diagnosis: Acute hypoxemic resp failure; Sepsis 2/2 LLL Pneumonia; Extreme obesity Interval history: Patient is seen today for: Acute hypoxemic respiratory failure; Sepsis secondary to left lower lobe PNA; Extreme obesity; Nephrotic syndrome; Enterococcus UTI Seen and examined at bedside; 24hour events reviewed; nursing and respiratory care staff consulted; no adverse overnight events reported to me; resting peacefully in bed; still awaiting placement and outpatient dialysis set up; denies acute chest pains or palpitations Objective Vital Signs - 12hr 10/13/18 10/13/18 00:20 05:28 Temperature 98.2 F 97.9 F Pulse Rate 90 75 Respiratory 18 20 Rate Blood Pressure 120/56 Blood Pressure 126/70 [Left] O2 Sat by Pulse 95 98 Oximetry Constitutional: no acute distress, alert Eyes: non-icteric ENT: oropharynx moist Neck: supple, no JVD Effort: normal Ascultation: Bilateral: clear, diminished breath sounds Percussion: Bilateral: not dull Cardiovascular: regular rate and rhythm Gastrointestinal: normoactive bowel sounds, soft, non-tender Integumentary: normal Extremities: no cyanosis, no edema Neurologic: non-focal exam, pupils equal and round, CN II-XII normal Psychiatric: depressed CBC and BMP: 10/14/18 07:11 10/14/18 07:11 ABG, PT/INR, D-dimer: ABG POC ABG pH 7.434 (7.35-7.45) 10/05/18 18:03 POC ABG pCO2 43.4 (35-45) 10/05/18 18:03 POC ABG pO2 57 (80-105) L 10/05/18 18:03 POC ABG HCO3 29.0 (22-26 mml/L) 10/05/18 18:03 POC ABG Total CO2 30 (23-27mmol/L) 10/05/18 18:03 POC ABG O2 Sat 90 10/05/18 18:03 PT/INR, D-dimer PT 13.4 Sec. (12.2-14.9) 10/10/18 09:01 INR 0.96 (0.87-1.13) 10/10/18 09:01 Abnormal lab findings: Abnormal Labs 09/17/18 09/17/18 09/17/18 15:17 15:17 15:17 WBC RBC 3.34 L Hgb 9.1 L Hct 27.9 L MCH 27 L RDW 20.5 H Plt Count Lymph % (Auto) [place] % (Auto) 8.8 H [place] # Seg Neuts % (Manual) Lymphocytes % (Manual) Monocytes % (Manual) Nucleated RBC % Lymphocytes # (Manual) Monocytes # (Manual) APTT 22.2 L POC ABG pO2 Potassium Chloride 107.7 H BUN 37 H Creatinine 2.3 H Glucose Calcium 7.4 L Phosphorus Magnesium 2.60 H ALT Total Creatine Kinase NT-Pro-B Natriuret Pep 992.5 H Serum Total Protein Total Protein 4.1 L Albumin 1.3 L Gamma Globulins PEP Interpretation Urine WBC (Auto) Urine Creatinine Ur Creatinine 24 Hour Ur Total Protein 24 Hr Urine Total Protein Valproic Acid Crossmatch 09/17/18 09/18/18 09/18/18 17:18 05:22 05:22 WBC 4.4 L RBC 3.06 L Hgb 8.5 L Hct 25.5 L MCH RDW 20.0 H Plt Count Lymph % (Auto) 36.5 H [place] % (Auto) 12.3 H [place] # Seg Neuts % (Manual) Lymphocytes % (Manual) Monocytes % (Manual) Nucleated RBC % Lymphocytes # (Manual) Monocytes # (Manual) APTT POC ABG pO2 Potassium Chloride 107.2 H BUN 37 H Creatinine 2.2 H Glucose Calcium 7.4 L Phosphorus Magnesium ALT 6 L Total Creatine Kinase NT-Pro-B Natriuret Pep Serum Total Protein Total Protein 3.9 L Albumin 1.4 L Gamma Globulins PEP Interpretation Urine WBC (Auto) 15.0 H Urine Creatinine Ur Creatinine 24 Hour Ur Total Protein 24 Hr Urine Total Protein Valproic Acid Crossmatch 09/18/18 09/19/18 09/19/18 10:30 05:45 05:45 WBC RBC Hgb Hct MCH RDW Plt Count Lymph % (Auto) [place] % (Auto) [place] # Seg Neuts % (Manual) Lymphocytes % (Manual) Monocytes % (Manual) Nucleated RBC % Lymphocytes # (Manual) Monocytes # (Manual) APTT POC ABG pO2 Potassium Chloride BUN 37 H Creatinine 2.1 H Glucose Calcium 7.3 L Phosphorus Magnesium ALT Total Creatine Kinase NT-Pro-B Natriuret Pep Serum Total Protein 3.4 L Total Protein Albumin 1.2 L Gamma Globulins 0.5 L PEP Interpretation see below H Urine WBC (Auto) Urine Creatinine 147.5 H Ur Creatinine 24 Hour 0.7 L Ur Total Protein 24 Hr 1073.50 H Urine Total Protein 226 H Valproic Acid Crossmatch 09/20/18 09/20/18 09/21/18 04:56 15:15 06:13 WBC RBC 2.84 L Hgb 7.8 L Hct 24.1 L MCH 27 L RDW 19.8 H Plt Count Lymph % (Auto) [place] % (Auto) 12.9 H [place] # Seg Neuts % (Manual) Lymphocytes % (Manual) Monocytes % (Manual) Nucleated RBC % Lymphocytes # (Manual) Monocytes # (Manual) APTT POC ABG pO2 Potassium 5.4 H 5.5 H Chloride 108.2 H BUN 38 H Creatinine 2.4 H Glucose Calcium 7.2 L Phosphorus Magnesium ALT Total Creatine Kinase NT-Pro-B Natriuret Pep Serum Total Protein Total Protein Albumin Gamma Globulins PEP Interpretation Urine WBC (Auto) Urine Creatinine Ur Creatinine 24 Hour Ur Total Protein 24 Hr Urine Total Protein Valproic Acid Crossmatch 09/21/18 09/21/18 09/22/18 06:13 07:00 10:12 WBC RBC Hgb Hct MCH RDW Plt Count Lymph % (Auto) [place] % (Auto) [place] # Seg Neuts % (Manual) Lymphocytes % (Manual) Monocytes % (Manual) Nucleated RBC % Lymphocytes # (Manual) Monocytes # (Manual) APTT POC ABG pO2 Potassium 5.2 H Chloride 108.2 H 111.5 H BUN 39 H 40 H Creatinine 2.7 H 3.1 H Glucose Calcium 7.3 L 7.1 L Phosphorus Magnesium ALT Total Creatine Kinase NT-Pro-B Natriuret Pep Serum Total Protein Total Protein Albumin Gamma Globulins PEP Interpretation Urine WBC (Auto) Urine Creatinine 97.5 H Ur Creatinine 24 Hour Ur Total Protein 24 Hr Urine Total Protein 708 H Valproic Acid Crossmatch 09/23/18 09/25/18 09/25/18 04:40 07:30 07:30 WBC RBC 2.55 L Hgb 6.9 L Hct 21.5 L MCH 27 L RDW 19.5 H Plt Count Lymph % (Auto) [place] % (Auto) 12.2 H [place] # Seg Neuts % (Manual) Lymphocytes % (Manual) Monocytes % (Manual) Nucleated RBC % Lymphocytes # (Manual) Monocytes # (Manual) APTT POC ABG pO2 Potassium Chloride 109.1 H BUN 42 H 33 H Creatinine 3.8 H 4.4 H Glucose 102 H Calcium 7.2 L 7.3 L Phosphorus 5.00 H Magnesium ALT Total Creatine Kinase NT-Pro-B Natriuret Pep Serum Total Protein Total Protein Albumin Gamma Globulins PEP Interpretation Urine WBC (Auto) Urine Creatinine Ur Creatinine 24 Hour Ur Total Protein 24 Hr Urine Total Protein Valproic Acid Crossmatch 09/26/18 09/26/18 09/26/18 07:17 07:17 07:17 WBC RBC Hgb 6.7 L Hct 20.0 L MCH RDW Plt Count Lymph % (Auto) [place] % (Auto) [place] # Seg Neuts % (Manual) Lymphocytes % (Manual) Monocytes % (Manual) Nucleated RBC % Lymphocytes # (Manual) Monocytes # (Manual) APTT POC ABG pO2 Potassium Chloride BUN 24 H Creatinine 4.1 H Glucose Calcium 7.0 L Phosphorus Magnesium ALT Total Creatine Kinase 559 H NT-Pro-B Natriuret Pep Serum Total Protein Total Protein Albumin Gamma Globulins PEP Interpretation Urine WBC (Auto) Urine Creatinine Ur Creatinine 24 Hour Ur Total Protein 24 Hr Urine Total Protein Valproic Acid 13.2 L Crossmatch 09/26/18 09/27/18 09/27/18 Unknown 07:42 07:42 WBC RBC 2.16 L Hgb 6.0 L Hct 18.1 L* MCH RDW 18.9 H Plt Count 130 L Lymph % (Auto) [place] % (Auto) 15.8 H [place] # Seg Neuts % (Manual) Lymphocytes % (Manual) Monocytes % (Manual) Nucleated RBC % Lymphocytes # (Manual) Monocytes # (Manual) APTT 36.7 H POC ABG pO2 Potassium Chloride 108.4 H BUN 26 H Creatinine 4.8 H Glucose Calcium 7.1 L Phosphorus 4.60 H Magnesium ALT Total Creatine Kinase NT-Pro-B Natriuret Pep Serum Total Protein Total Protein Albumin Gamma Globulins PEP Interpretation Urine WBC (Auto) Urine Creatinine Ur Creatinine 24 Hour Ur Total Protein 24 Hr Urine Total Protein Valproic Acid Crossmatch 09/27/18 09/28/18 09/29/18 10:43 04:43 05:07 WBC RBC 3.29 L 3.28 L Hgb 8.9 L 8.9 L Hct 27.2 L D 27.1 L MCH 27 L 27 L RDW 19.3 H 19.3 H Plt Count 130 L 133 L Lymph % (Auto) [place] % (Auto) 15.6 H [place] # 0.9 H Seg Neuts % (Manual) Lymphocytes % (Manual) Monocytes % (Manual) Nucleated RBC % Lymphocytes # (Manual) Monocytes # (Manual) APTT POC ABG pO2 Potassium Chloride BUN Creatinine Glucose Calcium Phosphorus Magnesium ALT Total Creatine Kinase NT-Pro-B Natriuret Pep Serum Total Protein Total Protein Albumin Gamma Globulins PEP Interpretation Urine WBC (Auto) Urine Creatinine Ur Creatinine 24 Hour Ur Total Protein 24 Hr Urine Total Protein Valproic Acid Crossmatch See Detail 09/29/18 10/01/18 10/01/18 05:07 06:16 06:16 WBC RBC 3.18 L Hgb 8.6 L Hct 26.2 L MCH 27 L RDW 19.3 H Plt Count Lymph % (Auto) [place] % (Auto) [place] # Seg Neuts % (Manual) Lymphocytes % (Manual) Monocytes % (Manual) Nucleated RBC % Lymphocytes # (Manual) Monocytes # (Manual) APTT POC ABG pO2 Potassium Chloride BUN 22 H 22 H Creatinine 5.4 H 6.0 H Glucose Calcium 7.1 L 7.1 L Phosphorus Magnesium ALT Total Creatine Kinase NT-Pro-B Natriuret Pep Serum Total Protein Total Protein Albumin Gamma Globulins PEP Interpretation Urine WBC (Auto) Urine Creatinine Ur Creatinine 24 Hour Ur Total Protein 24 Hr Urine Total Protein Valproic Acid Crossmatch 10/05/18 10/05/18 10/05/18 06:50 06:50 18:03 WBC RBC 3.08 L Hgb 8.3 L Hct 25.6 L MCH 27 L RDW 19.0 H Plt Count Lymph % (Auto) [place] % (Auto) [place] # Seg Neuts % (Manual) Lymphocytes % (Manual) Monocytes % (Manual) 11.0 H Nucleated RBC % Lymphocytes # (Manual) 0.9 L Monocytes # (Manual) APTT POC ABG pO2 57 L Potassium Chloride BUN Creatinine 4.9 H Glucose Calcium 7.3 L Phosphorus Magnesium ALT Total Creatine Kinase NT-Pro-B Natriuret Pep Serum Total Protein Total Protein 4.1 L Albumin 1.5 L Gamma Globulins PEP Interpretation Urine WBC (Auto) Urine Creatinine Ur Creatinine 24 Hour Ur Total Protein 24 Hr Urine Total Protein Valproic Acid Crossmatch 10/06/18 10/07/18 10/07/18 06:22 13:11 13:11 WBC RBC 3.04 L 3.36 L Hgb 8.1 L 9.0 L Hct 25.2 L 28.0 L MCH 27 L 27 L RDW 19.2 H 20.0 H Plt Count Lymph % (Auto) [place] % (Auto) [place] # Seg Neuts % (Manual) 71.0 H Lymphocytes % (Manual) 10.0 L Monocytes % (Manual) 14.0 H 18.0 H Nucleated RBC % 2.0 H Lymphocytes # (Manual) 1.0 L 0.7 L Monocytes # (Manual) 1.0 H 1.2 H APTT POC ABG pO2 Potassium Chloride BUN Creatinine 4.9 H Glucose 128 H Calcium 7.4 L Phosphorus Magnesium ALT Total Creatine Kinase NT-Pro-B Natriuret Pep Serum Total Protein Total Protein Albumin Gamma Globulins PEP Interpretation Urine WBC (Auto) Urine Creatinine Ur Creatinine 24 Hour Ur Total Protein 24 Hr Urine Total Protein Valproic Acid Crossmatch 10/10/18 10/10/18 10/10/18 06:41 06:41 09:01 WBC RBC 2.40 L Hgb 6.6 L Hct 20.4 L D MCH RDW 20.3 H Plt Count 124 L Lymph % (Auto) [place] % (Auto) [place] # Seg Neuts % (Manual) Lymphocytes % (Manual) Monocytes % (Manual) Nucleated RBC % Lymphocytes # (Manual) Monocytes # (Manual) APTT POC ABG pO2 Potassium Chloride BUN 18 H Creatinine 5.6 H Glucose Calcium 6.8 L Phosphorus Magnesium ALT Total Creatine Kinase NT-Pro-B Natriuret Pep Serum Total Protein Total Protein Albumin Gamma Globulins PEP Interpretation Urine WBC (Auto) Urine Creatinine Ur Creatinine 24 Hour Ur Total Protein 24 Hr Urine Total Protein Valproic Acid Crossmatch See Detail 10/11/18 10/12/18 10/12/18 07:46 09:25 09:25 WBC RBC 2.40 L 3.14 L Hgb 6.6 L 8.8 L Hct 20.8 L 27.5 L D MCH 27 L RDW 21.1 H 20.5 H Plt Count 132 L Lymph % (Auto) [place] % (Auto) [place] # Seg Neuts % (Manual) Lymphocytes % (Manual) Monocytes % (Manual) Nucleated RBC % Lymphocytes # (Manual) Monocytes # (Manual) APTT POC ABG pO2 Potassium Chloride BUN 21 H Creatinine 4.3 H Glucose 141 H Calcium 7.3 L Phosphorus Magnesium ALT Total Creatine Kinase NT-Pro-B Natriuret Pep Serum Total Protein Total Protein Albumin Gamma Globulins PEP Interpretation Urine WBC (Auto) Urine Creatinine Ur Creatinine 24 Hour Ur Total Protein 24 Hr Urine Total Protein Valproic Acid Crossmatch 10/13/18 10/13/18 07:12 07:12 WBC RBC 2.55 L Hgb 7.4 L Hct 22.5 L MCH RDW 23.1 H Plt Count 137 L Lymph % (Auto) [place] % (Auto) [place] # Seg Neuts % (Manual) Lymphocytes % (Manual) Monocytes % (Manual) Nucleated RBC % Lymphocytes # (Manual) Monocytes # (Manual) APTT POC ABG pO2 Potassium Chloride BUN 27 H Creatinine 4.9 H Glucose Calcium 6.9 L Phosphorus 4.90 H Magnesium ALT Total Creatine Kinase NT-Pro-B Natriuret Pep Serum Total Protein Total Protein Albumin Gamma Globulins PEP Interpretation Urine WBC (Auto) Urine Creatinine Ur Creatinine 24 Hour Ur Total Protein 24 Hr Urine Total Protein Valproic Acid Crossmatch Allied health notes reviewed: nursing
[2018-10-13] MEDS ORDERED: HEPARIN IV PRN (13:08)
[2018-10-13] MEDS ORDERED: HEPARIN 10,000 UNITS/10 ML IV PRN (13:08)
[2018-10-13] MEDS ORDERED: NACL 0.9% 100 ML IV PRN (13:08)
--- NOTE | 2018-10-13 13:18 | Progress Note ---
Assessment and Plan LUCILA - HD today Lytes - F/u labs FSGS - F/u Mx Subjective Date of service: 10/13/18 Principal diagnosis: Acute hypoxemic resp failure; Sepsis 2/2 LLL Pneumonia; Extreme obesity Interval history: Awake & alert Objective - Vital Signs Vital signs: Vital Signs - 12hr 10/13/18 05:28 Temperature 97.9 F Pulse Rate 75 Respiratory 20 Rate Blood Pressure 120/56 O2 Sat by Pulse 98 Oximetry - General Appearance General appearance: obese EENT: PERRL Respiratory: Present: Other (Good air entry) Cardiology: regular, S1S2 Gastrointestinal: obese - Lab 10/13/18 07:12 10/13/18 07:12 Most recent lab results Calcium 6.9 mg/dL (8.4-10.2) L 10/13/18 07:12 Phosphorus 4.90 mg/dL (2.5-4.5) H 10/13/18 07:12 Magnesium 2.60 mg/dL (1.7-2.3) H 09/17/18 15:17 Urine Creatinine 97.5 mg/dL (0.1-20.0) H 09/21/18 07:00 Ur Total Protein 24 Hr 1073.50 mg/dL (2-200) H 09/18/18 10:30 Urine Sodium 53 mmol/L 09/21/18 07:00 Urine Total Protein 708 mg/dL (5-11.8) H 09/21/18 07:00 Medications & Allergies - Medications Allergies/Adverse Reactions: Allergies No Known Allergies Allergy (Unverified 09/17/18 15:05) Home Medications: Home Medications Medication Instructions Recorded Confirmed Last Taken Type Divalproex Sodium [Depakote] 500 mg PO BID 09/17/18 09/17/18 Unknown History Haldol (Nf) 10 mg PO QHS 09/17/18 10/06/18 Unknown History Invega Sustenna 156 mg IM QMONTH 09/17/18 10/06/18 Unknown History diphenhydrAMINE [Benadryl CAP] 50 mg PO HS 09/17/18 09/17/18 Unknown History Active Medications: Generic Name Dose Route Start Last Admin Trade Name Freq PRN Reason Stop Dose Admin Acetaminophen 650 mg 09/18/18 02:40 09/27/18 05:36 Tylenol PO 650 mg Q4H PRN Administration Pain MILD(1-3)/Fever >100.5/MENDOZA Atorvastatin Calcium 40 mg 09/18/18 22:00 10/12/18 22:58 Lipitor PO 40 mg QHS LUZ Administration Diphenhydramine HCl 50 mg 09/18/18 22:00 10/12/18 22:58 Benadryl PO 50 mg HS LUZ Administration Divalproex Sodium 500 mg 09/18/18 10:00 10/13/18 09:[address] PO 500 mg BID LUZ Administration Epoetin Luis 20,000 unit 09/26/18 12:23 10/11/18 19:01 Procrit SUB-Q 20,000 unit KUSHAL PRN Administration hemodialysis Furosemide 80 mg 09/29/18 06:00 10/13/18 06:22 Lasix PO Not Given 0600,1800 LUZ Haloperidol 5 mg 09/25/18 22:00 10/12/18 22:58 Haldol PO 5 mg HS LUZ Administration Heparin Sodium (Porcine) 2,000 unit 10/13/18 13:08 Heparin 10,000 Units/10 Ml IV KUSHAL PRN hemodialysis Heparin Sodium (Porcine) 5,000 unit 10/13/18 13:08 Heparin IV KUSHAL PRN hemodialysis Heparin Sodium (Porcine) 5,000 unit 10/13/18 14:00 Heparin SUB-Q Q8HR [facility] Hydralazine HCl 10 mg 09/22/18 06:28 09/22/18 12:12 Apresoline IV 10 mg Q4H PRN Administration systolic b/p >165 Hydromorphone HCl 0.5 mg 09/18/18 02:40 Dilaudid IV Q3H PRN Pain , Severe (7-10) Sodium Chloride 100 mls @ 999 mls/hr 10/11/18 15:08 Nacl 0.9% IV KUSHAL PRN Hypotension Sodium Chloride 100 mls @ 999 mls/hr 10/13/18 13:08 Nacl 0.9% IV KUSHAL PRN Hypotension Losartan Potassium 50 mg 10/04/18 10:00 10/13/18 09:46 Cozaar PO 50 mg QDAY LUZ Administration Metoprolol Tartrate 50 mg 10/07/18 13:00 10/13/18 09:46 Lopressor PO 50 mg BID LUZ Administration Ondansetron HCl 4 mg 09/18/18 02:40 10/07/18 03:15 Zofran IV 4 mg Q8H PRN Administration Nausea And Vomiting Oxycodone/Acetaminophen 1 tab 09/18/18 02:40 10/09/18 22:03 Percocet 5/325 PO 1 tab Q6H PRN Administration Pain, Moderate (4-6) Pantoprazole Sodium 40 mg 10/02/18 10:00 10/13/18 09:47 Protonix PO 40 mg DAILY LUZ Administration Prednisone 80 mg 10/12/18 10:00 10/13/18 09:46 Deltasone PO 80 mg QDAY LUZ Administration Sodium Chloride 10 ml 09/18/18 10:00 10/13/18 09:47 Sodium Chloride Flush Syringe 10 Ml IV 10 ml BID LUZ Administration Sodium Chloride 10 ml 09/18/18 02:40 10/11/18 22:43 Sodium Chloride Flush Syringe 10 Ml IV 10 ml PRN PRN Administration LINE FLUSH
[2018-10-13] MEDS: HEPARIN SUB-Q SCH ×2 (14:37→22:00)
--- NOTE | 2018-10-13 15:53 | Progress Note ---
Assessment and Plan Assessment and plan: Patient is a 47 yo woman with a history of Obesity, HTN and Schizophrenia who presented to the ER with bilateral leg swelling, SOB and increase in the abdominal girth and weight gain of ~86 pounds in 10 weeks. Patient denies any h/o heart disease or Liver problem. Labs were significant for creatinine of 2.2, Hb 8.5, albumin 1.4 and 3+ protein in the urine. Patient was admitted with provisional diagnosis of Nephrotic syndrome. Nephrology was consulted for further evaluation and recommended Kidney biopsy; which patient refused on multiple occasions so Radiology declined to re-schedule the procedure. Also, During hospital coarse, she was found to have coffee ground emesis and EGD was done on 09/26/18 and showed M-W tear. Her hemoglobin was steadily dropping and she initially refused blood transfusion until Mr. Galeas convinced her to get the blood transfusion and do Hemodialysis which she refuses at times. 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 Quinn. 09/26/18 EGD Pre-op diagnosis: gi bleed Post-op diagnosis: same Findings: EGD: large hiatal hernia - m-w tear with pigmented area jut above g-e junction - mild gastritis - negative other Procedure: EGD =FSGN steroids per Nephrology =Nephrotic syndrome. Urine protein quantification pending. Follow BI, ANCA and complements. Renal ultrasound negative. Patient unfortunately refused kidney biopsy. =Coffee-ground emesis with Radha Mendez Tear. GI consulted H&H dropped and she refused blood transfusion today. =Acute on chronic Blood loss anemia due to above =Right lower extremity thigh pain. Doppler lower extremities bilaterally negative for DVT =Left breast swelling, unknown at present. Need outpatient Mammogram and U/S =Morbid obesity, bmi 55.2: lifestyle modification =Medical noncompliance. Patient intermittently at times refusing care. Psych/Mik told me she has decision making capacity. =Schizophrenia, Bipolar disorder. Continue current medications.. As above. P sych consulted =Hyperkalemia. Kayexalate. Recheck BMP in the morning. =Sepsis. Left lower lobe pneumonia. Present on admission. Continue IV antibio tics. Etiology secondary to pneumonia and UTI. =ARF, vasomotor nephropathy, poa =VRE: ID is following, ordered isolation =DVT prophylaxis: patient is refusing injections Patient is apart of [place] [facility] Outreach and ACT Team, call, psychiatrist Dr. Sivan molina @ [phone] and If Dr. Tatum is not available, call coordinator of care, Rao Galeas [phone]. Disposition: continue inpatient care, needs HD dialysis setup and new placement. History Interval history: Patient was seen and examined. Follow-up on current diagnosis of GIB. Overnight uneventful. Patient denies any chest pain, shortness breath, nausea/vomiting or severe headaches. Imaging, nursing note, chart, labs and old chart reviewed. Discussed with patient. Hospitalist Physical - Physical exam Narrative exam: GEN: chronic disable, NAD, Awake, Alert, Orientated, bmi 47.5 HEENT: NCAT, EOMI, PERRL, OP Clear NECK: supple, no adenopathy, no thyromegaly, no JVD CVS/HEART: Regular tachy, normal S1S2, pulses present bilaterally CHEST/LUNGS: diminished bs bilateral, poor effort, Symmetrical chest expansion, good air entry bilaterally GI/Abdomen: soft, NTND, good bowel sounds, no guarding or rebound /Bladder: no suprapubic tenderness, no CVA or paraspinal tenderness EXT/Skin: ble edema no obvious rash MSK: FROM x 4 Neuro: CN 2-12 grossly intact, no new focal deficits Psych: calm - Constitutional Vitals: Temp Pulse Resp BP Pulse Ox 98.5 F 70 22 187/87 98 10/13/18 13:25 10/13/18 15:30 10/13/18 13:25 10/13/18 15:30 10/13/18 12:19 General appearance: Present: mild distress (with right neck pressure) Results - Labs CBC & Chem 7: 10/13/18 07:12 10/13/18 07:12 Labs: Laboratory Last Values WBC 6.5 K/mm3 (4.5-11.0) 10/13/18 07:12 RBC 2.55 M/mm3 (3.65-5.03) L 10/13/18 07:12 Hgb 7.4 gm/dl (10.1-14.3) L 10/13/18 07:12 Hct 22.5 % (30.3-42.9) L 10/13/18 07:12 MCV 88 fl (79-97) 10/13/18 07:12 MCH 29 pg (28-32) 10/13/18 07:12 MCHC 33 % (30-34) 10/13/18 07:12 RDW 23.1 % (13.2-15.2) H 10/13/18 07:12 Plt Count 137 K/mm3 (140-440) L 10/13/18 07:12 Lymph % (Auto) 24.2 % (13.4-35.0) 09/29/18 05:07 [place] % (Auto) Underwriting Account Representative 10/07/18 13:11 Eos % (Auto) 1.7 % (0.0-4.3) 09/29/18 05:07 Baso % (Auto) 0.3 % (0.0-1.8) 09/29/18 05:07 Lymph # 1.4 K/mm3 (1.2-5.4) 09/29/18 05:07 [place] # 0.9 K/mm3 (0.0-0.8) H 09/29/18 05:07 Eos # 0.1 K/mm3 (0.0-0.4) 09/29/18 05:07 Baso # 0.0 K/mm3 (0.0-0.1) 09/29/18 05:07 Add Manual Diff Complete 10/07/18 13:11 Total Counted 100 10/07/18 13:11 Seg Neutrophils % 58.2 % (40.0-70.0) 09/29/18 05:07 Seg Neuts % (Manual) 70.0 % (40.0-70.0) 10/07/18 13:11 Band Neutrophils % 1.0 % 10/07/18 13:11 Lymphocytes % (Manual) 10.0 % (13.4-35.0) L 10/07/18 13:11 Reactive Lymphs % (Man) 0 % 10/07/18 13:11 Monocytes % (Manual) 18.0 % (0.0-7.3) H 10/07/18 13:11 Eosinophils % (Manual) 0 % (0.0-4.3) 10/07/18 13:11 Basophils % (Manual) 0 % (0.0-1.8) 10/07/18 13:11 Metamyelocytes % 0 % 10/07/18 13:11 Myelocytes % 1.0 % 10/07/18 13:11 Promyelocytes % 0 % 10/07/18 13:11 Blast Cells % 0 % 10/07/18 13:11 Nucleated RBC % 2.0 % (0.0-0.9) H 10/07/18 13:11 Seg Neutrophils # 3.5 K/mm3 (1.8-7.7) 09/29/18 05:07 Seg Neutrophils # Man 4.7 K/mm3 (1.8-7.7) 10/07/18 13:11 Band Neutrophils # 0.1 K/mm3 10/07/18 13:11 Lymphocytes # (Manual) 0.7 K/mm3 (1.2-5.4) L 10/07/18 13:11 Abs React Lymphs (Man) 0.0 K/mm3 10/07/18 13:11 Monocytes # (Manual) 1.2 K/mm3 (0.0-0.8) H 10/07/18 13:11 Eosinophils # (Manual) 0.0 K/mm3 (0.0-0.4) 10/07/18 13:11 Basophils # (Manual) 0.0 K/mm3 (0.0-0.1) 10/07/18 13:11 Metamyelocytes # 0.0 K/mm3 10/07/18 13:11 Myelocytes # 0.1 K/mm3 10/07/18 13:11 Promyelocytes # 0.0 K/mm3 10/07/18 13:11 Blast Cells # 0.0 K/mm3 10/07/18 13:11 WBC Morphology Not Reportable 10/07/18 13:11 Hypersegmented Neuts Not Reportable 10/07/18 13:11 Hyposegmented Neuts Not Reportable 10/07/18 13:11 Hypogranular Neuts Not Reportable 10/07/18 13:11 Smudge Cells Not Reportable 10/07/18 13:11 Toxic Granulation Not Reportable 10/07/18 13:11 Toxic Vacuolation Not Reportable 10/07/18 13:11 Dohle Bodies Not Reportable 10/07/18 13:11 Pelger-Huet Anomaly Not Reportable 10/07/18 13:11 Latasha Rods Not Reportable 10/07/18 13:11 Platelet Estimate Consistent w auto 10/07/18 13:11 Clumped Platelets Not Reportable 10/07/18 13:11 Plt Clumps, EDTA Not Reportable 10/07/18 13:11 Large Platelets Not Reportable 10/07/18 13:11 Giant Platelets Not Reportable 10/07/18 13:11 Platelet Satelliting Not Reportable 10/07/18 13:11 Plt Morphology Comment Not Reportable 10/07/18 13:11 RBC Morphology Not Reportable 10/07/18 13:11 Dimorphic RBCs Not Reportable 10/07/18 13:11 Polychromasia Not Reportable 10/07/18 13:11 Hypochromasia Not Reportable 10/07/18 13:11 Poikilocytosis Not Reportable 10/07/18 13:11 Anisocytosis Not Reportable 10/07/18 13:11 Microcytosis 1+ 10/07/18 13:11 Macrocytosis Not Reportable 10/07/18 13:11 Spherocytes Not Reportable 10/07/18 13:11 Pappenheimer Bodies Not Reportable 10/07/18 13:11 Sickle Cells Not Reportable 10/07/18 13:11 Target Cells Not Reportable 10/07/18 13:11 Tear Drop Cells Not Reportable 10/07/18 13:11 Ovalocytes Not Reportable 10/07/18 13:11 Helmet Cells Not Reportable 10/07/18 13:11 [place] Bodies Not Reportable 10/07/18 13:11 [place] Rings Not Reportable 10/07/18 13:11 [place] Cells Not Reportable 10/07/18 13:11 Bite Cells Not Reportable 10/07/18 13:11 Crenated Cell Not Reportable 10/07/18 13:11 Elliptocytes Not Reportable 10/07/18 13:11 Acanthocytes (Spur) Not Reportable 10/07/18 13:11 Rouleaux Not Reportable 10/07/18 13:11 Hemoglobin C Crystals Not Reportable 10/07/18 13:11 Schistocytes Not Reportable 10/07/18 13:11 Malaria parasites Not Reportable 10/07/18 13:11 Paul Bodies Not Reportable 10/07/18 13:11 Hem Pathologist Commnt No 10/07/18 13:11 PT 13.4 Sec. (12.2-14.9) 10/10/18 09:01 INR 0.96 (0.87-1.13) 10/10/18 09:01 APTT 25.0 Sec. (24.2-36.6) 10/10/18 09:01 POC ABG pH 7.434 (7.35-7.45) 10/05/18 18:03 POC ABG pCO2 43.4 (35-45) 10/05/18 18:03 POC ABG pO2 57 (80-105) L 10/05/18 18:03 POC ABG HCO3 29.0 (22-26 mml/L) 10/05/18 18:03 POC ABG Total CO2 30 (23-27mmol/L) 10/05/18 18:03 POC ABG O2 Sat 90 10/05/18 18:03 POC ABG Base Excess 5 ((-2) - (+3)mmol/L) 10/05/18 18:03 FiO2 21 % 10/05/18 18:03 Sodium 141 mmol/L (137-145) 10/13/18 07:12 Potassium 4.3 mmol/L (3.6-5.0) 10/13/18 07:12 Chloride 105.9 mmol/L (98-107) 10/13/18 07:12 Carbon Dioxide 29 mmol/L (22-30) 10/13/18 07:12 Anion Gap 10 mmol/L 10/13/18 07:12 BUN 27 mg/dL (7-17) H 10/13/18 07:12 Creatinine 4.9 mg/dL (0.7-1.2) H 10/13/18 07:12 Estimated GFR 12 ml/min 10/13/18 07:12 BUN/Creatinine Ratio 6 % 10/13/18 07:12 Glucose 87 mg/dL (65-100) 10/13/18 07:12 Calcium 6.9 mg/dL (8.4-10.2) L 10/13/18 07:12 Phosphorus 4.90 mg/dL (2.5-4.5) H 10/13/18 07:12 Magnesium 2.60 mg/dL (1.7-2.3) H 09/17/18 15:17 Total Bilirubin < 0.20 mg/dL (0.1-1.2) 10/05/18 06:50 AST 14 units/L (5-40) 10/05/18 06:50 ALT 7 units/L (7-56) 10/05/18 06:50 Alkaline Phosphatase 52 units/L (35-129) 10/05/18 06:50 Total Creatine Kinase 559 units/L (30-135) H 09/26/18 07:17 Troponin T 0.012 ng/mL (0.00-0.029) 09/17/18 15:17 NT-Pro-B Natriuret Pep 992.5 pg/mL (0-450) H 09/17/18 15:17 Serum Total Protein 3.4 g/dL (6.1-8.1) L 09/19/18 05:45 Total Protein 4.1 g/dL (6.3-8.2) L 10/05/18 06:50 Albumin 1.5 g/dL (3.9-5) L 10/05/18 06:50 Albumin/Globulin Ratio 0.6 % 10/05/18 06:50 Nazcr-8-Jsjnrcutm 0.3 g/dL (0.2-0.3) 09/19/18 05:45 Biuqz-3-Yhlysucqt 0.8 g/dL (0.5-0.9) 09/19/18 05:45 Beta Globulins 0.4 g/dL (0.2-0.5) 09/19/18 05:45 Gamma Globulins 0.5 g/dL (0.8-1.7) L 09/19/18 05:45 Abnorm Protein Band 1 see below 09/19/18 05:45 PEP Interpretation see below H 09/19/18 05:45 Amylase 53 units/L (27-131) 09/25/18 13:53 Lipase 48 units/L (13-60) 09/25/18 13:53 HCG, Qual Negative (Negative) 09/25/18 13:53 PTH Intact 46.07 pg/mL (15-65) 09/19/18 05:45 Urine Color Yellow (Yellow) 09/17/18 17:18 Urine Turbidity Cloudy (Clear) 09/17/18 17:18 Urine pH 5.0 (5.0-7.0) 09/17/18 17:18 Ur Specific [place] 1.029 (1.003-1.030) 09/17/18 17:18 Urine Protein >500 mg/dL (Negative) 09/17/18 17:18 Urine Glucose (UA) Neg mg/dL (Negative) 09/17/18 17:18 Urine Ketones Tr mg/dL (Negative) 09/17/18 17:18 Urine Blood Sm (Negative) 09/17/18 17:18 Urine Nitrite Neg (Negative) 09/17/18 17:18 Urine Bilirubin Neg (Negative) 09/17/18 17:18 Urine Urobilinogen < 2.0 mg/dL (<2.0) 09/17/18 17:18 Ur Leukocyte Esterase Neg (Negative) 09/17/18 17:18 Urine WBC (Auto) 15.0 /HPF (0.0-6.0) H 09/17/18 17:18 Urine RBC (Auto) 13.0 /HPF (0.0-6.0) 09/17/18 17:18 U Epithel Cells (Auto) 6.0 /HPF (0-13.0) 09/17/18 17:18 Urine Bacteria (Auto) 2+ /HPF (Negative) 09/17/18 17:18 Urine WBC Clumps 2+ /HPF 09/17/18 17:18 Hyaline Casts 6 /LPF 09/17/18 17:18 Urine Mucus Few /HPF 09/17/18 17:18 Urine Yeast (Budding) 2+ /HPF 09/17/18 17:18 Urine Eosinophils None seen (None Seen) 09/18/18 10:30 Urine Total Volume 475 ml 09/18/18 10:30 Urine Creatinine 97.5 mg/dL (0.1-20.0) H 09/21/18 07:00 Ur Creatinine 24 Hour 0.7 (0.8-2.8) L 09/18/18 10:30 Ur Total Protein 24 Hr 1073.50 mg/dL (2-200) H 09/18/18 10:30 Protein/Creatinin Ratio 7.26 09/21/18 07:00 Urine Sodium 53 mmol/L 09/21/18 07:00 Urine Urea Nitrogen 467 09/18/18 10:30 Ur Urea Nitrogen 24 Hr 2.22 09/18/18 10:30 Urine Total Protein 708 mg/dL (5-11.8) H 09/21/18 07:00 Urine Opiates Screen Presumptive negative 09/17/18 17:18 Urine Methadone Screen Presumptive negative 09/17/18 17:18 Ur Barbiturates Screen Presumptive negative 09/17/18 17:18 Valproic Acid 13.2 ug/mL (50-100) L 09/26/18 07:17 Ur Phencyclidine Scrn Presumptive negative 09/17/18 17:18 Ur Amphetamines Screen Presumptive negative 09/17/18 17:18 U Benzodiazepines Scrn Presumptive negative 09/17/18 17:18 Urine Cocaine Screen Presumptive negative 09/17/18 17:18 U Marijuana (THC) Screen Presumptive negative 09/17/18 17:18 Drugs of Abuse Note Disclamer 09/17/18 17:18 BI Screen Negative (Negative) 09/19/18 05:45 Proteinase 3 (PR3) Ab <1.0 AI (<1.0) 09/19/18 05:45 Myeloperoxidase Ab <1.0 AI (<1.0) 09/19/18 05:45 Glomerular Base Mem IgG See scanned result 09/19/18 05:45 Complement C3 143 mg/dL (83-193) 09/19/18 05:45 Complement C4 56 mg/dL (15-57) 09/19/18 05:45 Hepatitis A IgM Ab Non-reactive (NonReactive) 09/19/18 05:45 Hep Bs Antigen Non-reactive (Negative) 09/19/18 05:45 Hep B Core IgM Ab Non-reactive (NonReactive) 09/19/18 05:45 Hepatitis C Antibody Non-reactive (NonReactive) 09/19/18 05:45 HIV 1&2 Antibody Rapid Non react (Non React) 09/27/18 07:42 HIV P24 Antigen Non react (Non React) 09/27/18 07:42 Blood Type O POSITIVE 10/10/18 09:01 Antibody Screen Negative 10/10/18 09:01 Crossmatch See Detail 10/10/18 09:01 Active Medications - Current Medications Current Medications: Generic Name Dose Route Start Last Admin Trade Name Freq PRN Reason Stop Dose Admin Acetaminophen 650 mg 09/18/18 02:40 09/27/18 05:36 Tylenol PO 650 mg Q4H PRN Administration Pain MILD(1-3)/Fever >100.5/MENDOZA Atorvastatin Calcium 40 mg 09/18/18 22:00 10/12/18 22:58 Lipitor PO 40 mg QHS LUZ Administration Diphenhydramine HCl 50 mg 09/18/18 22:00 10/12/18 22:58 Benadryl PO 50 mg HS LUZ Administration Divalproex Sodium 500 mg 09/18/18 10:00 10/13/18 09:[address] PO 500 mg BID LUZ Administration Epoetin Luis 20,000 unit 09/26/18 12:23 10/11/18 19:01 Procrit SUB-Q 20,000 unit KUSHAL PRN Administration hemodialysis Furosemide 80 mg 09/29/18 06:00 10/13/18 06:22 Lasix PO Not Given 0600,1800 LUZ Haloperidol 5 mg 09/25/18 22:00 10/12/18 22:58 Haldol PO 5 mg HS LUZ Administration Heparin Sodium (Porcine) 2,000 unit 10/13/18 13:08 Heparin 10,000 Units/10 Ml IV KUSHAL PRN hemodialysis Heparin Sodium (Porcine) 5,000 unit 10/13/18 13:08 Heparin IV KUSHAL PRN hemodialysis Heparin Sodium (Porcine) 5,000 unit 10/13/18 14:00 10/13/18 14:37 Heparin SUB-Q Not Given Q8HR [facility] Hydralazine HCl 10 mg 09/22/18 06:28 09/22/18 12:12 Apresoline IV 10 mg Q4H PRN Administration systolic b/p >165 Hydromorphone HCl 0.5 mg 09/18/18 02:40 Dilaudid IV Q3H PRN Pain , Severe (7-10) Sodium Chloride 100 mls @ 999 mls/hr 10/11/18 15:08 Nacl 0.9% IV KUSHAL PRN Hypotension Sodium Chloride 100 mls @ 999 mls/hr 10/13/18 13:08 Nacl 0.9% IV KUSHAL PRN Hypotension Losartan Potassium 50 mg 10/04/18 10:00 10/13/18 09:46 Cozaar PO 50 mg QDAY LUZ Administration Metoprolol Tartrate 50 mg 10/07/18 13:00 10/13/18 09:46 Lopressor PO 50 mg BID LUZ Administration Ondansetron HCl 4 mg 09/18/18 02:40 10/07/18 03:15 Zofran IV 4 mg Q8H PRN Administration Nausea And Vomiting Oxycodone/Acetaminophen 1 tab 09/18/18 02:40 10/09/18 22:03 Percocet 5/325 PO 1 tab Q6H PRN Administration Pain, Moderate (4-6) Pantoprazole Sodium 40 mg 10/02/18 10:00 10/13/18 09:47 Protonix PO 40 mg DAILY LUZ Administration Prednisone 80 mg 10/12/18 10:00 10/13/18 09:46 Deltasone PO 80 mg QDAY LUZ Administration Sodium Chloride 10 ml 09/18/18 10:00 10/13/18 09:47 Sodium Chloride Flush Syringe 10 Ml IV 10 ml BID LUZ Administration Sodium Chloride 10 ml 09/18/18 02:40 10/11/18 22:43 Sodium Chloride Flush Syringe 10 Ml IV 10 ml PRN PRN Administration LINE FLUSH Nutrition/Malnutrition Assess - Dietary Evaluation Nutrition/Malnutrition Findings: Nutrition Notes Start: 09/24/18 15:36 Freq: Status: Active Protocol: Document 10/09/18 14:32 TW (Rec: 10/09/18 14:49 TW [id number]) Co-Sign 10/09/18 14:32 LP Nutrition Notes Initial or Follow up Reassessment Current Diagnosis Sepsis,Respiratory Failure Other Pertinent Diagnosis renal failure on HD, nephrotic syndrome, anemia Current Diet GI Soft Labs/Tests Cr 4.9 Pertinent Medications Lasix Height 5 ft 6 in Weight 141.7 kg [place] Body Weight (kg) 59.09 BMI 50.4 Intake Prior to Admission Excellent Weight Status Morbidly Obese Subjective/Other Information F/U for intakes and renal education. Pt reports eating 100% of meals and having a good appetite [employer]. Discussed with pt importance of HD and renal appropriate diet. Percent of energy/protein needs met: 100%/100% Burn Absent Trauma Absent #2 Nutrition Diagnosis Food and nutrition-related knowledge deficit Etiology lack of prior renal education As Evidenced by Signs and Symptoms pt reporting not knowing about renal disease Is patient on ventilator? No Is Patient Ambulatory and/or Out of Bed Yes REE-([place]-St. Jeor-ambulatory/OOB) [ 6335.875 NUTR.[id number]] Kcal/Kg value to use for calculation 15 Approximate Energy Requirements Using 2126 kcal/Kg Calculation Used for Recommendations Kcal/kg Additional Notes Protein Needs: 71-77g (1.2-1. 3g/kg IBW) Fluid Needs: 1 ml/kcal Nutrition Intervention Change Diet Order: Continue GI soft Teaching Recipient Patient Learning Readiness Fair Teaching Methods Discussion,Handout Response to Teaching Reinforcement needed Education Handouts Provided Importance of HD, Renal diet Barriers to Learning Motivation RD phone number provided Yes Patient aware of follow up options Yes Goal #1 Continue to meet at least 75% of calorie and protein needs via PO intakes Anticipated Discharge Needs: Unable to determine at this time Revisit per MD consult or patient Sign Off request:
--- NOTE | 2018-10-13 19:03 | Hem/Onc Progress Note ---
Assessment and Plan 1. History based on the notes of neck deep vein thrombosis. Nephrotic syndrome may have a role in her deep vein thrombosis. The management of this will become challenging. The patient had Radha-Mendez tear, anticoagulation is needed. However, due to recent bleed, we would be forced to avoid the same. 2. Nephrotic syndrome and proteinuria most likely has a role in her DVT formation. 3. Anemia with history of gastrointestinal bleed, status post transfusion. We will investigate and follow. 4. Mild thrombocytopenia. 5. Renal impairment. 6. Nephrotic syndrome, on steroids. 7. On Depakote. 8. On medications for hypertension and medications for hyperlipidemia. 9. Vancomycin-resistant enterococcal bacteriuria. 10. History of schizophrenia. 11. History of breast lump. This would need outpatient followup. 12. History of hemodialysis. 13. History of esophagogastroduodenoscopy. 14. History of hematemesis. I will follow the patient during inpatient stay and then in the clinic setting. - Patient Problems (1) Deep vein thrombosis Current Visit: Yes Status: Acute Subjective Date of service: 10/13/18 Objective - Constitutional Vitals: Last Vital Signs Temp 98.6 F 10/13/18 18:11 Pulse 98 H 10/13/18 18:11 Resp 22 10/13/18 18:11 BP 147/94 10/13/18 18:11 Pulse Ox 98 10/13/18 18:11 Pain Intensity (0-10): denies any pain General appearance: no acute distress Performance status: 3-limited selfcare - EENT Eyes: EOM intact ENT: clear oral mucosa Lymph node exam: negative cervical - Neck Neck: normal ROM - Respiratory Respiratory effort: Positive: normal Respiratory: bilateral: CTA - Cardiovascular Heart Sounds: Present: S1 & S2 Extremities: No edema - Gastrointestinal General gastrointestinal: Present: soft, non-tender Rectal Exam: deferred - Genitourinary Female genitourinary: Present: deferred - Integumentary Integumentary: warm - Musculoskeletal Musculoskeletal: strength equal bilaterally - Neurologic Neurologic: moves all extremities - Labs Lab Results: Laboratory Results - last 24 hr 10/10/18 10/13/18 10/13/18 09:01 07:12 07:12 WBC 6.5 RBC 2.55 L Hgb 7.4 L Hct 22.5 L MCV 88 MCH 29 MCHC 33 RDW 23.1 H Plt Count 137 L Sodium 141 Potassium 4.3 Chloride 105.9 Carbon Dioxide 29 Anion Gap 10 BUN 27 H Creatinine 4.9 H Estimated GFR 12 BUN/Creatinine Ratio 6 Glucose 87 Calcium 6.9 L Phosphorus 4.90 H Crossmatch See Detail Medications & Allergies - Medications Allergies/Adverse Reactions: Allergies No Known Allergies Allergy (Unverified 09/17/18 15:05) Home Medications: Home Medications Medication Instructions Recorded Confirmed Last Taken Type Divalproex Sodium [Depakote] 500 mg PO BID 09/17/18 09/17/18 Unknown History Haldol (Nf) 10 mg PO QHS 09/17/18 10/06/18 Unknown History Invega Sustenna 156 mg IM QMONTH 09/17/18 10/06/18 Unknown History diphenhydrAMINE [Benadryl CAP] 50 mg PO HS 09/17/18 09/17/18 Unknown History Active Medications: Generic Name Dose Route Start Last Admin Trade Name Freq PRN Reason Stop Dose Admin Acetaminophen 650 mg 09/18/18 02:40 09/27/18 05:36 Tylenol PO 650 mg Q4H PRN Administration Pain MILD(1-3)/Fever >100.5/MENDOZA Atorvastatin Calcium 40 mg 09/18/18 22:00 10/12/18 22:58 Lipitor PO 40 mg QHS LUZ Administration Diphenhydramine HCl 50 mg 09/18/18 22:00 10/12/18 22:58 Benadryl PO 50 mg HS LUZ Administration Divalproex Sodium 500 mg 09/18/18 10:00 10/13/18 09:[address] PO 500 mg BID LUZ Administration Epoetin Luis 20,000 unit 09/26/18 12:23 10/11/18 19:01 Procrit SUB-Q 20,000 unit UKSHAL PRN Administration hemodialysis Furosemide 80 mg 09/29/18 06:00 10/13/18 17:11 Lasix PO 80 mg 0600,1800 LUZ Administration Haloperidol 5 mg 09/25/18 22:00 10/12/18 22:58 Haldol PO 5 mg HS LUZ Administration Heparin Sodium (Porcine) 2,000 unit 10/13/18 13:08 Heparin 10,000 Units/10 Ml IV KUSHAL PRN hemodialysis Heparin Sodium (Porcine) 5,000 unit 10/13/18 13:08 Heparin IV KUSHAL PRN hemodialysis Heparin Sodium (Porcine) 5,000 unit 10/13/18 14:00 10/13/18 14:37 Heparin SUB-Q Not Given Q8HR LUZ Hydralazine HCl 10 mg 09/22/18 06:28 09/22/18 12:12 Apresoline IV 10 mg Q4H PRN Administration systolic b/p >165 Hydromorphone HCl 0.5 mg 09/18/18 02:40 Dilaudid IV Q3H PRN Pain , Severe (7-10) Sodium Chloride 100 mls @ 999 mls/hr 10/11/18 15:08 Nacl 0.9% IV KUSHAL PRN Hypotension Sodium Chloride 100 mls @ 999 mls/hr 10/13/18 13:08 Nacl 0.9% IV KUSHAL PRN Hypotension Losartan Potassium 50 mg 10/04/18 10:00 10/13/18 09:46 Cozaar PO 50 mg QDAY LUZ Administration Metoprolol Tartrate 50 mg 10/07/18 13:00 10/13/18 09:46 Lopressor PO 50 mg BID LUZ Administration Ondansetron HCl 4 mg 09/18/18 02:40 10/07/18 03:15 Zofran IV 4 mg Q8H PRN Administration Nausea And Vomiting Oxycodone/Acetaminophen 1 tab 09/18/18 02:40 10/09/18 22:03 Percocet 5/325 PO 1 tab Q6H PRN Administration Pain, Moderate (4-6) Pantoprazole Sodium 40 mg 10/02/18 10:00 10/13/18 09:47 Protonix PO 40 mg DAILY LUZ Administration Prednisone 80 mg 10/12/18 10:00 10/13/18 09:46 Deltasone PO 80 mg QDAY LUZ Administration Sodium Chloride 10 ml 09/18/18 10:00 10/13/18 17:11 Sodium Chloride Flush Syringe 10 Ml IV 10 ml BID LUZ Administration Sodium Chloride 10 ml 09/18/18 02:40 10/11/18 22:43 Sodium Chloride Flush Syringe 10 Ml IV 10 ml PRN PRN Administration LINE FLUSH
[2018-10-13] MEDS: HALDOL PO SCH (23:01)
[2018-10-13] MEDS: BENADRYL PO SCH (23:01)
--- NOTE | 2018-10-14 00:19 | Consultation ---
REFERRING PHYSICIAN: Dr. Quintanilla. REASON FOR CONSULTATION: DVT of internal jugular vein as per the notes of Dr. Quintanilla. HISTORY OF PRESENT ILLNESS: I saw the patient, a 47-year-old female with past history of obesity, hypertension, schizophrenia, and bilateral leg swelling, who came with shortness of breath and abdominal distention and weight gain of 80 pounds in 10 weeks' time. The patient was found to have nephrotic syndrome. Renal biopsy was done. 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 The patient was started on steroids. The patient had GI bleed and Radha-Mendez tear was found. The patient received blood transfusion. The patient had leg Doppler done and this was negative. The patient has a history of left breast swelling, this needs outpatient followup. The patient had sepsis/pneumonia during this admission and was seen by ID team and received antibiotics. The patient has history of thrombocytopenia. I have been asked to evaluate the patient in view of the DVT in the neck internal jugular/nephrotic syndrome. At this time, no headache, no visual disturbances, no ear discharge. No chest pain, no palpitation, no abdominal pain, no hematemesis. The patient had hematemesis in the past. The patient had generalized weakness. History of leg swelling present. No seizure, syncope or loss of consciousness. PAST MEDICAL HISTORY: As above, hypertension and schizophrenia. ALLERGIES: None. SOCIAL HISTORY: No history of tobacco or alcohol usage. MEDICATIONS: Present medications include atorvastatin, Depakote, Procrit, Lasix, Haldol, heparin, Dilaudid, Zofran, Percocet, prednisone, and hydralazine. PHYSICAL EXAMINATION: VITAL SIGNS: Temperature 98, pulse 82, respirations 20, BP 140/78. HEENT: Pallor present, no icterus. NECK: No neck lymph nodes. HEART: S1, S2. CHEST: Clear to auscultation anteriorly. ABDOMEN: Soft. EXTREMITIES: Leg swelling present. NEUROLOGIC: Alert and awake. LABORATORY DATA: White cell 6.8, hemoglobin 8.8, MCV 87, platelet 148. The lowest hemoglobin was 6 on 09/27/2018. The lowest platelet count was 130. RADIOLOGY: The patient had a leg Doppler, ultrasound of the renal and renal biopsy. ASSESSMENT AND PLAN: 1. History based on the notes of neck deep vein thrombosis. Nephrotic syndrome may have a role in her deep vein thrombosis. The management of this will become challenging. The patient had Radha-Mendez tear, anticoagulation is needed. However, due to recent bleed, we would be forced to avoid the same. 2. Nephrotic syndrome and proteinuria most likely has a role in her DVT formation. 3. Anemia with history of gastrointestinal bleed, status post transfusion. We will investigate and follow. 4. Mild thrombocytopenia. 5. Renal impairment. 6. Nephrotic syndrome, on steroids. 7. On Depakote. 8. On medications for hypertension and medications for hyperlipidemia. 9. Vancomycin-resistant enterococcal bacteriuria. 10. History of schizophrenia. 11. History of breast lump. This would need outpatient followup. 12. History of hemodialysis. 13. History of esophagogastroduodenoscopy. 14. History of hematemesis. I will follow the patient during inpatient stay and then in the clinic setting. JOB# [id number] YENY/NTS
[2018-10-14] MEDS: LASIX PO SCH ×2 (05:50→19:17)
[2018-10-14 07:38] LABS: Hematocrit 22.8 % (30.3-42.9); Hemoglobin 7.5 gm/dl (10.1-14.3); Mean Corpuscular HGB Conc 33 % (30-34); Mean Corpuscular Volume 88 fl (79-97); Platelet Count 134 K/mm3 (140-440); Red Blood Count 2.58 M/mm3 (3.65-5.03)
[2018-10-14 08:02] LABS: Red Cell Distribution Width 23.1 % (13.2-15.2)
[2018-10-14 08:05] LABS: Albumin 1.5 g/dL (3.9-5); Calcium 7.3 mg/dL (8.4-10.2)
[2018-10-14 11:05] LABS: Basophils % (Manual) 0 % (0.0-1.8); Eosinophils % (Manual) 0 % (0.0-4.3); Total Cells Counted 100
[2018-10-14 11:06] LABS: Hypochromasia Rare; Ovalocytes Few; Platelet Estimate Consistent w Auto
--- NOTE | 2018-10-14 11:11 | Progress Note ---
Assessment and Plan LUCILA - F/u fxn on HD Lytes - Stable, f/u labs FSGS - F/u Mx Subjective Date of service: 10/14/18 Principal diagnosis: Acute hypoxemic resp failure; Sepsis 2/2 LLL Pneumonia; Extreme obesity Objective - Vital Signs Vital signs: Vital Signs - 12hr 10/14/18 05:43 Temperature 98.4 F Pulse Rate 76 Respiratory 20 Rate Blood Pressure 135/67 O2 Sat by Pulse 93 Oximetry - General Appearance General appearance: other (Awake & responsive. No change) - Lab 10/14/18 07:11 10/14/18 07:11 Most recent lab results Calcium 7.3 mg/dL (8.4-10.2) L 10/14/18 07:11 Phosphorus 4.30 mg/dL (2.5-4.5) 10/14/18 07:11 Magnesium 1.70 mg/dL (1.7-2.3) 10/14/18 07:11 Urine Creatinine 97.5 mg/dL (0.1-20.0) H 09/21/18 07:00 Ur Total Protein 24 Hr 1073.50 mg/dL (2-200) H 09/18/18 10:30 Urine Sodium 53 mmol/L 09/21/18 07:00 Urine Total Protein 708 mg/dL (5-11.8) H 09/21/18 07:00 Medications & Allergies - Medications Allergies/Adverse Reactions: Allergies No Known Allergies Allergy (Unverified 09/17/18 15:05) Home Medications: Home Medications Medication Instructions Recorded Confirmed Last Taken Type Divalproex Sodium [Depakote] 500 mg PO BID 09/17/18 09/17/18 Unknown History Haldol (Nf) 10 mg PO QHS 09/17/18 10/06/18 Unknown History Invega Sustenna 156 mg IM QMONTH 09/17/18 10/06/18 Unknown History diphenhydrAMINE [Benadryl CAP] 50 mg PO HS 09/17/18 09/17/18 Unknown History Active Medications: Generic Name Dose Route Start Last Admin Trade Name Freq PRN Reason Stop Dose Admin Acetaminophen 650 mg 09/18/18 02:40 09/27/18 05:36 Tylenol PO 650 mg Q4H PRN Administration Pain MILD(1-3)/Fever >100.5/MENDOZA Atorvastatin Calcium 40 mg 09/18/18 22:00 10/13/18 23:01 Lipitor PO 40 mg QHS LUZ Administration Diphenhydramine HCl 50 mg 09/18/18 22:00 10/13/18 23:01 Benadryl PO 50 mg HS LUZ Administration Divalproex Sodium 500 mg 09/18/18 10:00 10/13/18 23:[address] PO 500 mg BID LUZ Administration Epoetin Luis 20,000 unit 09/26/18 12:23 10/11/18 19:01 Procrit SUB-Q 20,000 unit KUSHAL PRN Administration hemodialysis Furosemide 80 mg 09/29/18 06:00 10/14/18 05:50 Lasix PO 80 mg 0600,1800 LUZ Administration Haloperidol 5 mg 09/25/18 22:00 10/13/18 23:01 Haldol PO 5 mg HS LUZ Administration Heparin Sodium (Porcine) 2,000 unit 10/13/18 13:08 Heparin 10,000 Units/10 Ml IV KUSHAL PRN hemodialysis Heparin Sodium (Porcine) 5,000 unit 10/13/18 13:08 Heparin IV KUSHAL PRN hemodialysis Heparin Sodium (Porcine) 5,000 unit 10/13/18 14:00 10/13/18 22:00 Heparin SUB-Q Not Given Q8HR LUZ Hydralazine HCl 10 mg 09/22/18 06:28 09/22/18 12:12 Apresoline IV 10 mg Q4H PRN Administration systolic b/p >165 Hydromorphone HCl 0.5 mg 09/18/18 02:40 Dilaudid IV Q3H PRN Pain , Severe (7-10) Sodium Chloride 100 mls @ 999 mls/hr 10/11/18 15:08 Nacl 0.9% IV KUSHAL PRN Hypotension Sodium Chloride 100 mls @ 999 mls/hr 10/13/18 13:08 Nacl 0.9% IV KUSHAL PRN Hypotension Losartan Potassium 50 mg 10/04/18 10:00 10/13/18 09:46 Cozaar PO 50 mg QDAY LUZ Administration Metoprolol Tartrate 50 mg 10/07/18 13:00 10/13/18 23:01 Lopressor PO 50 mg BID LUZ Administration Ondansetron HCl 4 mg 09/18/18 02:40 10/07/18 03:15 Zofran IV 4 mg Q8H PRN Administration Nausea And Vomiting Oxycodone/Acetaminophen 1 tab 09/18/18 02:40 10/09/18 22:03 Percocet 5/325 PO 1 tab Q6H PRN Administration Pain, Moderate (4-6) Pantoprazole Sodium 40 mg 10/02/18 10:00 10/13/18 09:47 Protonix PO 40 mg DAILY LUZ Administration Prednisone 80 mg 10/12/18 10:00 10/13/18 09:46 Deltasone PO 80 mg QDAY LUZ Administration Sodium Chloride 10 ml 09/18/18 10:00 10/13/18 23:21 Sodium Chloride Flush Syringe 10 Ml IV 10 ml BID LUZ Administration Sodium Chloride 10 ml 09/18/18 02:40 10/11/18 22:43 Sodium Chloride Flush Syringe 10 Ml IV 10 ml PRN PRN Administration LINE FLUSH
--- NOTE | 2018-10-14 11:25 | Progress Note ---
Assessment and Plan Acute hypoxemic respiratory failure Sepsis secondary to left lower lobe PNA Extreme obesity Nephrotic syndrome Enterococcus UTI Renal failure on HD Nephrotic syndrome Anemia (repeat CXR reviewed; RIJ vascath and likely small pleural effusions; suggests volume overload over pneumonia) - continue supplemental oxygen to keep O2 sat's > 90% (advised to keep it on especially while asleep) - strongly counseled to continue using BIPAP qhs for clinical STEFF S&S - repeat ABG and address as necessary - outpatient pulmonary/Sleep clinic f/up - continue prn albuterol for wheezing / SOB - continue HD/UF for toxin clearance and volume control - diuretics per support analyst - weight loss counseled - now dialysis dependent; continue HD/UF per nephrology prescription - no active GI bleeding and was related to Radha Mendez tear - VTE w/up negative - continue other care per attending / other consultants .... re-evaluate in am & prn Subjective Date of service: 10/14/18 Principal diagnosis: Acute hypoxemic resp failure; Sepsis 2/2 LLL Pneumonia; Extreme obesity Interval history: Patient is seen today for: Acute hypoxemic respiratory failure; Sepsis secondary to left lower lobe PNA; Extreme obesity; Nephrotic syndrome; Enterococcus UTI Seen and examined at bedside; 24hour events reviewed; nursing and respiratory care staff consulted; no adverse overnight events reported to me; resting peacefully in bed; on supplemental oxygen at 2L flow; denies acute chest pains or palpitations; tolerating dialysis; No N/V/F/C. Objective Vital Signs - 12hr 10/14/18 05:43 Temperature 98.4 F Pulse Rate 76 Respiratory 20 Rate Blood Pressure 135/67 O2 Sat by Pulse 93 Oximetry Constitutional: no acute distress, alert Eyes: non-icteric ENT: oropharynx moist Neck: supple, no JVD, other (large neck circumference) Effort: normal Ascultation: Bilateral: clear, diminished breath sounds Percussion: Bilateral: not dull Cardiovascular: regular rate and rhythm Gastrointestinal: normoactive bowel sounds, soft, non-tender Integumentary: normal Extremities: no cyanosis, no edema Neurologic: non-focal exam, pupils equal and round, CN II-XII normal Psychiatric: depressed CBC and BMP: 10/17/18 10:08 10/18/18 05:27 ABG, PT/INR, D-dimer: ABG POC ABG pH 7.434 (7.35-7.45) 10/05/18 18:03 POC ABG pCO2 43.4 (35-45) 10/05/18 18:03 POC ABG pO2 57 (80-105) L 10/05/18 18:03 POC ABG HCO3 29.0 (22-26 mml/L) 10/05/18 18:03 POC ABG Total CO2 30 (23-27mmol/L) 10/05/18 18:03 POC ABG O2 Sat 90 10/05/18 18:03 PT/INR, D-dimer PT 13.4 Sec. (12.2-14.9) 10/10/18 09:01 INR 0.96 (0.87-1.13) 10/10/18 09:01 Abnormal lab findings: Abnormal Labs 09/17/18 09/17/18 09/17/18 15:17 15:17 15:17 WBC RBC 3.34 L Hgb 9.1 L Hct 27.9 L MCH 27 L RDW 20.5 H Plt Count Lymph % (Auto) Hitchcock % (Auto) 8.8 H Hitchcock # Seg Neuts % (Manual) Lymphocytes % (Manual) Monocytes % (Manual) Nucleated RBC % Lymphocytes # (Manual) Monocytes # (Manual) APTT 22.2 L POC ABG pO2 Potassium Chloride 107.7 H BUN 37 H Creatinine 2.3 H Glucose Calcium 7.4 L Phosphorus Magnesium 2.60 H TIBC ALT Total Creatine Kinase NT-Pro-B Natriuret Pep 992.5 H Serum Total Protein Total Protein 4.1 L Albumin 1.3 L Gamma Globulins PEP Interpretation Folate Urine WBC (Auto) Urine Creatinine Ur Creatinine 24 Hour Ur Total Protein 24 Hr Urine Total Protein Valproic Acid Crossmatch 09/17/18 09/18/18 09/18/18 17:18 05:22 05:22 WBC 4.4 L RBC 3.06 L Hgb 8.5 L Hct 25.5 L MCH RDW 20.0 H Plt Count Lymph % (Auto) 36.5 H Hitchcock % (Auto) 12.3 H Hitchcock # Seg Neuts % (Manual) Lymphocytes % (Manual) Monocytes % (Manual) Nucleated RBC % Lymphocytes # (Manual) Monocytes # (Manual) APTT POC ABG pO2 Potassium Chloride 107.2 H BUN 37 H Creatinine 2.2 H Glucose Calcium 7.4 L Phosphorus Magnesium TIBC ALT 6 L Total Creatine Kinase NT-Pro-B Natriuret Pep Serum Total Protein Total Protein 3.9 L Albumin 1.4 L Gamma Globulins PEP Interpretation Folate Urine WBC (Auto) 15.0 H Urine Creatinine Ur Creatinine 24 Hour Ur Total Protein 24 Hr Urine Total Protein Valproic Acid Crossmatch 09/18/18 09/19/18 09/19/18 10:30 05:45 05:45 WBC RBC Hgb Hct MCH RDW Plt Count Lymph % (Auto) Hitchcock % (Auto) Hitchcock # Seg Neuts % (Manual) Lymphocytes % (Manual) Monocytes % (Manual) Nucleated RBC % Lymphocytes # (Manual) Monocytes # (Manual) APTT POC ABG pO2 Potassium Chloride BUN 37 H Creatinine 2.1 H Glucose Calcium 7.3 L Phosphorus Magnesium TIBC ALT Total Creatine Kinase NT-Pro-B Natriuret Pep Serum Total Protein 3.4 L Total Protein Albumin 1.2 L Gamma Globulins 0.5 L PEP Interpretation see below H Folate Urine WBC (Auto) Urine Creatinine 147.5 H Ur Creatinine 24 Hour 0.7 L Ur Total Protein 24 Hr 1073.50 H Urine Total Protein 226 H Valproic Acid Crossmatch 09/20/18 09/20/18 09/21/18 04:56 15:15 06:13 WBC RBC 2.84 L Hgb 7.8 L Hct 24.1 L MCH 27 L RDW 19.8 H Plt Count Lymph % (Auto) Hitchcock % (Auto) 12.9 H Hitchcock # Seg Neuts % (Manual) Lymphocytes % (Manual) Monocytes % (Manual) Nucleated RBC % Lymphocytes # (Manual) Monocytes # (Manual) APTT POC ABG pO2 Potassium 5.4 H 5.5 H Chloride 108.2 H BUN 38 H Creatinine 2.4 H Glucose Calcium 7.2 L Phosphorus Magnesium TIBC ALT Total Creatine Kinase NT-Pro-B Natriuret Pep Serum Total Protein Total Protein Albumin Gamma Globulins PEP Interpretation Folate Urine WBC (Auto) Urine Creatinine Ur Creatinine 24 Hour Ur Total Protein 24 Hr Urine Total Protein Valproic Acid Crossmatch 09/21/18 09/21/18 09/22/18 06:13 07:00 10:12 WBC RBC Hgb Hct MCH RDW Plt Count Lymph % (Auto) Hitchcock % (Auto) Hitchcock # Seg Neuts % (Manual) Lymphocytes % (Manual) Monocytes % (Manual) Nucleated RBC % Lymphocytes # (Manual) Monocytes # (Manual) APTT POC ABG pO2 Potassium 5.2 H Chloride 108.2 H 111.5 H BUN 39 H 40 H Creatinine 2.7 H 3.1 H Glucose Calcium 7.3 L 7.1 L Phosphorus Magnesium TIBC ALT Total Creatine Kinase NT-Pro-B Natriuret Pep Serum Total Protein Total Protein Albumin Gamma Globulins PEP Interpretation Folate Urine WBC (Auto) Urine Creatinine 97.5 H Ur Creatinine 24 Hour Ur Total Protein 24 Hr Urine Total Protein 708 H Valproic Acid Crossmatch 09/23/18 09/25/18 09/25/18 04:40 07:30 07:30 WBC RBC 2.55 L Hgb 6.9 L Hct 21.5 L MCH 27 L RDW 19.5 H Plt Count Lymph % (Auto) Hitchcock % (Auto) 12.2 H Hitchcock # Seg Neuts % (Manual) Lymphocytes % (Manual) Monocytes % (Manual) Nucleated RBC % Lymphocytes # (Manual) Monocytes # (Manual) APTT POC ABG pO2 Potassium Chloride 109.1 H BUN 42 H 33 H Creatinine 3.8 H 4.4 H Glucose 102 H Calcium 7.2 L 7.3 L Phosphorus 5.00 H Magnesium TIBC ALT Total Creatine Kinase NT-Pro-B Natriuret Pep Serum Total Protein Total Protein Albumin Gamma Globulins PEP Interpretation Folate Urine WBC (Auto) Urine Creatinine Ur Creatinine 24 Hour Ur Total Protein 24 Hr Urine Total Protein Valproic Acid Crossmatch 09/26/18 09/26/18 09/26/18 07:17 07:17 07:17 WBC RBC Hgb 6.7 L Hct 20.0 L MCH RDW Plt Count Lymph % (Auto) Hitchcock % (Auto) Hitchcock # Seg Neuts % (Manual) Lymphocytes % (Manual) Monocytes % (Manual) Nucleated RBC % Lymphocytes # (Manual) Monocytes # (Manual) APTT POC ABG pO2 Potassium Chloride BUN 24 H Creatinine 4.1 H Glucose Calcium 7.0 L Phosphorus Magnesium TIBC ALT Total Creatine Kinase 559 H NT-Pro-B Natriuret Pep Serum Total Protein Total Protein Albumin Gamma Globulins PEP Interpretation Folate Urine WBC (Auto) Urine Creatinine Ur Creatinine 24 Hour Ur Total Protein 24 Hr Urine Total Protein Valproic Acid 13.2 L Crossmatch 09/26/18 09/27/18 09/27/18 Unknown 07:42 07:42 WBC RBC 2.16 L Hgb 6.0 L Hct 18.1 L* MCH RDW 18.9 H Plt Count 130 L Lymph % (Auto) Hitchcock % (Auto) 15.8 H Hitchcock # Seg Neuts % (Manual) Lymphocytes % (Manual) Monocytes % (Manual) Nucleated RBC % Lymphocytes # (Manual) Monocytes # (Manual) APTT 36.7 H POC ABG pO2 Potassium Chloride 108.4 H BUN 26 H Creatinine 4.8 H Glucose Calcium 7.1 L Phosphorus 4.60 H Magnesium TIBC ALT Total Creatine Kinase NT-Pro-B Natriuret Pep Serum Total Protein Total Protein Albumin Gamma Globulins PEP Interpretation Folate Urine WBC (Auto) Urine Creatinine Ur Creatinine 24 Hour Ur Total Protein 24 Hr Urine Total Protein Valproic Acid Crossmatch 09/27/18 09/28/18 09/29/18 10:43 04:43 05:07 WBC RBC 3.29 L 3.28 L Hgb 8.9 L 8.9 L Hct 27.2 L D 27.1 L MCH 27 L 27 L RDW 19.3 H 19.3 H Plt Count 130 L 133 L Lymph % (Auto) Hitchcock % (Auto) 15.6 H Hitchcock # 0.9 H Seg Neuts % (Manual) Lymphocytes % (Manual) Monocytes % (Manual) Nucleated RBC % Lymphocytes # (Manual) Monocytes # (Manual) APTT POC ABG pO2 Potassium Chloride BUN Creatinine Glucose Calcium Phosphorus Magnesium TIBC ALT Total Creatine Kinase NT-Pro-B Natriuret Pep Serum Total Protein Total Protein Albumin Gamma Globulins PEP Interpretation Folate Urine WBC (Auto) Urine Creatinine Ur Creatinine 24 Hour Ur Total Protein 24 Hr Urine Total Protein Valproic Acid Crossmatch See Detail 09/29/18 10/01/18 10/01/18 05:07 06:16 06:16 WBC RBC 3.18 L Hgb 8.6 L Hct 26.2 L MCH 27 L RDW 19.3 H Plt Count Lymph % (Auto) Hitchcock % (Auto) Hitchcock # Seg Neuts % (Manual) Lymphocytes % (Manual) Monocytes % (Manual) Nucleated RBC % Lymphocytes # (Manual) Monocytes # (Manual) APTT POC ABG pO2 Potassium Chloride BUN 22 H 22 H Creatinine 5.4 H 6.0 H Glucose Calcium 7.1 L 7.1 L Phosphorus Magnesium TIBC ALT Total Creatine Kinase NT-Pro-B Natriuret Pep Serum Total Protein Total Protein Albumin Gamma Globulins PEP Interpretation Folate Urine WBC (Auto) Urine Creatinine Ur Creatinine 24 Hour Ur Total Protein 24 Hr Urine Total Protein Valproic Acid Crossmatch 10/05/18 10/05/18 10/05/18 06:50 06:50 18:03 WBC RBC 3.08 L Hgb 8.3 L Hct 25.6 L MCH 27 L RDW 19.0 H Plt Count Lymph % (Auto) Hitchcock % (Auto) Hitchcock # Seg Neuts % (Manual) Lymphocytes % (Manual) Monocytes % (Manual) 11.0 H Nucleated RBC % Lymphocytes # (Manual) 0.9 L Monocytes # (Manual) APTT POC ABG pO2 57 L Potassium Chloride BUN Creatinine 4.9 H Glucose Calcium 7.3 L Phosphorus Magnesium TIBC ALT Total Creatine Kinase NT-Pro-B Natriuret Pep Serum Total Protein Total Protein 4.1 L Albumin 1.5 L Gamma Globulins PEP Interpretation Folate Urine WBC (Auto) Urine Creatinine Ur Creatinine 24 Hour Ur Total Protein 24 Hr Urine Total Protein Valproic Acid Crossmatch 10/06/18 10/07/18 10/07/18 06:22 13:11 13:11 WBC RBC 3.04 L 3.36 L Hgb 8.1 L 9.0 L Hct 25.2 L 28.0 L MCH 27 L 27 L RDW 19.2 H 20.0 H Plt Count Lymph % (Auto) Hitchcock % (Auto) Hitchcock # Seg Neuts % (Manual) 71.0 H Lymphocytes % (Manual) 10.0 L Monocytes % (Manual) 14.0 H 18.0 H Nucleated RBC % 2.0 H Lymphocytes # (Manual) 1.0 L 0.7 L Monocytes # (Manual) 1.0 H 1.2 H APTT POC ABG pO2 Potassium Chloride BUN Creatinine 4.9 H Glucose 128 H Calcium 7.4 L Phosphorus Magnesium TIBC ALT Total Creatine Kinase NT-Pro-B Natriuret Pep Serum Total Protein Total Protein Albumin Gamma Globulins PEP Interpretation Folate Urine WBC (Auto) Urine Creatinine Ur Creatinine 24 Hour Ur Total Protein 24 Hr Urine Total Protein Valproic Acid Crossmatch 10/10/18 10/10/18 10/10/18 06:41 06:41 09:01 WBC RBC 2.40 L Hgb 6.6 L Hct 20.4 L D MCH RDW 20.3 H Plt Count 124 L Lymph % (Auto) Hitchcock % (Auto) Hitchcock # Seg Neuts % (Manual) Lymphocytes % (Manual) Monocytes % (Manual) Nucleated RBC % Lymphocytes # (Manual) Monocytes # (Manual) APTT POC ABG pO2 Potassium Chloride BUN 18 H Creatinine 5.6 H Glucose Calcium 6.8 L Phosphorus Magnesium TIBC ALT Total Creatine Kinase NT-Pro-B Natriuret Pep Serum Total Protein Total Protein Albumin Gamma Globulins PEP Interpretation Folate Urine WBC (Auto) Urine Creatinine Ur Creatinine 24 Hour Ur Total Protein 24 Hr Urine Total Protein Valproic Acid Crossmatch See Detail 10/11/18 10/12/18 10/12/18 07:46 09:25 09:25 WBC RBC 2.40 L 3.14 L Hgb 6.6 L 8.8 L Hct 20.8 L 27.5 L D MCH 27 L RDW 21.1 H 20.5 H Plt Count 132 L Lymph % (Auto) Hitchcock % (Auto) Hitchcock # Seg Neuts % (Manual) Lymphocytes % (Manual) Monocytes % (Manual) Nucleated RBC % Lymphocytes # (Manual) Monocytes # (Manual) APTT POC ABG pO2 Potassium Chloride BUN 21 H Creatinine 4.3 H Glucose 141 H Calcium 7.3 L Phosphorus Magnesium TIBC ALT Total Creatine Kinase NT-Pro-B Natriuret Pep Serum Total Protein Total Protein Albumin Gamma Globulins PEP Interpretation Folate Urine WBC (Auto) Urine Creatinine Ur Creatinine 24 Hour Ur Total Protein 24 Hr Urine Total Protein Valproic Acid Crossmatch 10/13/18 10/13/18 10/14/18 07:12 07:12 07:11 WBC RBC 2.55 L 2.58 L Hgb 7.4 L 7.5 L Hct 22.5 L 22.8 L MCH RDW 23.1 H 23.1 H Plt Count 137 L 134 L Lymph % (Auto) Hitchcock % (Auto) Hitchcock # Seg Neuts % (Manual) 76.0 H Lymphocytes % (Manual) Monocytes % (Manual) Nucleated RBC % Lymphocytes # (Manual) 1.1 L Monocytes # (Manual) APTT POC ABG pO2 Potassium Chloride BUN 27 H Creatinine 4.9 H Glucose Calcium 6.9 L Phosphorus 4.90 H Magnesium TIBC ALT Total Creatine Kinase NT-Pro-B Natriuret Pep Serum Total Protein Total Protein Albumin Gamma Globulins PEP Interpretation Folate Urine WBC (Auto) Urine Creatinine Ur Creatinine 24 Hour Ur Total Protein 24 Hr Urine Total Protein Valproic Acid Crossmatch 10/14/18 10/14/18 07:11 07:11 WBC RBC Hgb Hct MCH RDW Plt Count Lymph % (Auto) Hitchcock % (Auto) Hitchcock # Seg Neuts % (Manual) Lymphocytes % (Manual) Monocytes % (Manual) Nucleated RBC % Lymphocytes # (Manual) Monocytes # (Manual) APTT POC ABG pO2 Potassium Chloride BUN 24 H Creatinine 4.2 H Glucose Calcium 7.3 L Phosphorus Magnesium TIBC 134 L ALT 6 L Total Creatine Kinase NT-Pro-B Natriuret Pep Serum Total Protein Total Protein 3.8 L Albumin 1.5 L Gamma Globulins PEP Interpretation Folate 3.59 L Urine WBC (Auto) Urine Creatinine Ur Creatinine 24 Hour Ur Total Protein 24 Hr Urine Total Protein Valproic Acid Crossmatch Allied health notes reviewed: nursing
[2018-10-14] MEDS: PROTONIX PO SCH (12:24)
[2018-10-14] MEDS: LOPRESSOR PO SCH ×2 (12:24→22:00)
[2018-10-14] MEDS: DELTASONE PO SCH (12:25)
[2018-10-14] MEDS: SODIUM CHLORIDE FLUSH SYRINGE 10 ML IV SCH ×2 (12:25→22:00)
[2018-10-14] MEDS: HEPARIN SUB-Q SCH ×3 (13:44→22:00)
[2018-10-14] MEDS: COZAAR PO SCH (13:44)
--- NOTE | 2018-10-14 14:03 | Progress Note ---
Assessment and Plan Assessment and plan: Patient is a 47 yo woman with a history of Obesity, HTN and Schizophrenia who presented to the ER with bilateral leg swelling, SOB and increase in the abdominal girth and weight gain of ~86 pounds in 10 weeks. Patient denies any h/o heart disease or Liver problem. Labs were significant for creatinine of 2.2, Hb 8.5, albumin 1.4 and 3+ protein in the urine. Patient was admitted with provisional diagnosis of Nephrotic syndrome. Nephrology was consulted for further evaluation and recommended Kidney biopsy; which patient refused on multiple occasions so Radiology declined to re-schedule the procedure. Also, During hospital coarse, she was found to have coffee ground emesis and EGD was done on 09/26/18 and showed M-W tear. Her hemoglobin was steadily dropping and she initially refused blood transfusion until Mr. Galeas convinced her to get the blood transfusion and do Hemodialysis which she refuses at times. 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 Quinn. 09/26/18 EGD Pre-op diagnosis: gi bleed Post-op diagnosis: same Findings: EGD: large hiatal hernia - m-w tear with pigmented area jut above g-e junction - mild gastritis - negative other Procedure: EGD =FSGN steroids per Nephrology =Nephrotic syndrome. Urine protein quantification pending. Follow BI, ANCA and complements. Renal ultrasound negative. Patient unfortunately refused kidney biopsy. =Coffee-ground emesis with Radha Mendez Tear. GI consulted H&H dropped and she refused blood transfusion today. =Acute on chronic Blood loss anemia due to above =Right lower extremity thigh pain. Doppler lower extremities bilaterally negative for DVT =Left breast swelling, unknown at present. Need outpatient Mammogram and U/S =Morbid obesity, bmi 55.2: lifestyle modification =Medical noncompliance. Patient intermittently at times refusing care. Psych/Mik told me she has decision making capacity. =Schizophrenia, Bipolar disorder. Continue current medications.. As above. P sych consulted =Hyperkalemia. Kayexalate. Recheck BMP in the morning. =Sepsis. Left lower lobe pneumonia. Present on admission. Continue IV antibio tics. Etiology secondary to pneumonia and UTI. =ARF, vasomotor nephropathy, poa =VRE: ID is following, ordered isolation =DVT prophylaxis: patient is refusing injections Patient is apart of [facility] Outreach and ACT Team, call, psychiatrist Dr. Sivan molina @ [phone] and If Dr. Tatum is not available, call coordinator of care, Rao Galeas [phone]. Disposition: continue inpatient care, needs HD dialysis setup and new placement. History Interval history: Patient was seen and examined. Follow-up on current diagnosis of GIB. Overnight uneventful. Patient denies any chest pain, shortness breath, nausea/vomiting or severe headaches. Imaging, nursing note, chart, labs and old chart reviewed. Discussed with patient. Hospitalist Physical - Physical exam Narrative exam: GEN: chronic disable, NAD, Awake, Alert, Orientated, bmi 47.5 HEENT: NCAT, EOMI, PERRL, OP Clear NECK: supple, no adenopathy, no thyromegaly, no JVD CVS/HEART: Regular tachy, normal S1S2, pulses present bilaterally CHEST/LUNGS: diminished bs bilateral, poor effort, Symmetrical chest expansion, good air entry bilaterally GI/Abdomen: soft, NTND, good bowel sounds, no guarding or rebound /Bladder: no suprapubic tenderness, no CVA or paraspinal tenderness EXT/Skin: ble edema no obvious rash MSK: FROM x 4 Neuro: CN 2-12 grossly intact, no new focal deficits Psych: calm - Constitutional Vitals: Temp Pulse Resp BP Pulse Ox 98.0 F 71 20 145/77 100 10/14/18 12:17 10/14/18 12:17 10/14/18 12:17 10/14/18 12:17 10/14/18 12:17 General appearance: Absent: mild distress (with right neck pressure) Results - Labs CBC & Chem 7: 10/14/18 07:11 10/14/18 07:11 Labs: Laboratory Last Values WBC 7.5 K/mm3 (4.5-11.0) 10/14/18 07:11 RBC 2.58 M/mm3 (3.65-5.03) L 10/14/18 07:11 Hgb 7.5 gm/dl (10.1-14.3) L 10/14/18 07:11 Hct 22.8 % (30.3-42.9) L 10/14/18 07:11 MCV 88 fl (79-97) 10/14/18 07:11 MCH 29 pg (28-32) 10/14/18 07:11 MCHC 33 % (30-34) 10/14/18 07:11 RDW 23.1 % (13.2-15.2) H 10/14/18 07:11 Plt Count 134 K/mm3 (140-440) L 10/14/18 07:11 Lymph % (Auto) 24.2 % (13.4-35.0) 09/29/18 05:07 Benzie % (Auto) Field Installer 10/14/18 07:11 Eos % (Auto) 1.7 % (0.0-4.3) 09/29/18 05:07 Baso % (Auto) 0.3 % (0.0-1.8) 09/29/18 05:07 Lymph # 1.4 K/mm3 (1.2-5.4) 09/29/18 05:07 Benzie # 0.9 K/mm3 (0.0-0.8) H 09/29/18 05:07 Eos # 0.1 K/mm3 (0.0-0.4) 09/29/18 05:07 Baso # 0.0 K/mm3 (0.0-0.1) 09/29/18 05:07 Add Manual Diff Complete 10/14/18 07:11 Total Counted 100 10/14/18 07:11 Seg Neutrophils % 58.2 % (40.0-70.0) 09/29/18 05:07 Seg Neuts % (Manual) 76.0 % (40.0-70.0) H 10/14/18 07:11 Band Neutrophils % 0 % 10/14/18 07:11 Lymphocytes % (Manual) 14.0 % (13.4-35.0) 10/14/18 07:11 Reactive Lymphs % (Man) 2.0 % 10/14/18 07:11 Monocytes % (Manual) 7.0 % (0.0-7.3) 10/14/18 07:11 Eosinophils % (Manual) 0 % (0.0-4.3) 10/14/18 07:11 Basophils % (Manual) 0 % (0.0-1.8) 10/14/18 07:11 Metamyelocytes % 1.0 % 10/14/18 07:11 Myelocytes % 0 % 10/14/18 07:11 Promyelocytes % 0 % 10/14/18 07:11 Blast Cells % 0 % 10/14/18 07:11 Nucleated RBC % Not Reportable 10/14/18 07:11 Seg Neutrophils # 3.5 K/mm3 (1.8-7.7) 09/29/18 05:07 Seg Neutrophils # Man 5.7 K/mm3 (1.8-7.7) 10/14/18 07:11 Band Neutrophils # 0.0 K/mm3 10/14/18 07:11 Lymphocytes # (Manual) 1.1 K/mm3 (1.2-5.4) L 10/14/18 07:11 Abs React Lymphs (Man) 0.2 K/mm3 10/14/18 07:11 Monocytes # (Manual) 0.5 K/mm3 (0.0-0.8) 10/14/18 07:11 Eosinophils # (Manual) 0.0 K/mm3 (0.0-0.4) 10/14/18 07:11 Basophils # (Manual) 0.0 K/mm3 (0.0-0.1) 10/14/18 07:11 Metamyelocytes # 0.1 K/mm3 10/14/18 07:11 Myelocytes # 0.0 K/mm3 10/14/18 07:11 Promyelocytes # 0.0 K/mm3 10/14/18 07:11 Blast Cells # 0.0 K/mm3 10/14/18 07:11 WBC Morphology Not Reportable 10/14/18 07:11 Hypersegmented Neuts Not Reportable 10/14/18 07:11 Hyposegmented Neuts Not Reportable 10/14/18 07:11 Hypogranular Neuts Not Reportable 10/14/18 07:11 Smudge Cells Not Reportable 10/14/18 07:11 Toxic Granulation Not Reportable 10/14/18 07:11 Toxic Vacuolation Not Reportable 10/14/18 07:11 Dohle Bodies Not Reportable 10/14/18 07:11 Pelger-Huet Anomaly Not Reportable 10/14/18 07:11 Latasha Rods Not Reportable 10/14/18 07:11 Platelet Estimate Consistent w auto 10/14/18 07:11 Clumped Platelets Not Reportable 10/14/18 07:11 Plt Clumps, EDTA Not Reportable 10/14/18 07:11 Large Platelets Not Reportable 10/14/18 07:11 Giant Platelets Not Reportable 10/14/18 07:11 Platelet Satelliting Not Reportable 10/14/18 07:11 Plt Morphology Comment Not Reportable 10/14/18 07:11 RBC Morphology Not Reportable 10/14/18 07:11 Dimorphic RBCs Not Reportable 10/14/18 07:11 Polychromasia Few 10/14/18 07:11 Hypochromasia Rare 10/14/18 07:11 Poikilocytosis Not Reportable 10/14/18 07:11 Anisocytosis Not Reportable 10/14/18 07:11 Microcytosis Not Reportable 10/14/18 07:11 Macrocytosis Not Reportable 10/14/18 07:11 Spherocytes Not Reportable 10/14/18 07:11 Pappenheimer Bodies Not Reportable 10/14/18 07:11 Sickle Cells Not Reportable 10/14/18 07:11 Target Cells Not Reportable 10/14/18 07:11 Tear Drop Cells Not Reportable 10/14/18 07:11 Ovalocytes Few 10/14/18 07:11 Helmet Cells Not Reportable 10/14/18 07:11 Maldonado-Laughlin Bodies Not Reportable 10/14/18 07:11 Connell Rings Not Reportable 10/14/18 07:11 Edison Cells Not Reportable 10/14/18 07:11 Bite Cells Not Reportable 10/14/18 07:11 Crenated Cell Not Reportable 10/14/18 07:11 Elliptocytes Not Reportable 10/14/18 07:11 Acanthocytes (Spur) Not Reportable 10/14/18 07:11 Rouleaux Not Reportable 10/14/18 07:11 Hemoglobin C Crystals Not Reportable 10/14/18 07:11 Schistocytes Not Reportable 10/14/18 07:11 Malaria parasites Not Reportable 10/14/18 07:11 Paul Bodies Not Reportable 10/14/18 07:11 Hem Pathologist Commnt No 10/14/18 07:11 PT 13.4 Sec. (12.2-14.9) 10/10/18 09:01 INR 0.96 (0.87-1.13) 10/10/18 09:01 APTT 25.0 Sec. (24.2-36.6) 10/10/18 09:01 POC ABG pH 7.434 (7.35-7.45) 10/05/18 18:03 POC ABG pCO2 43.4 (35-45) 10/05/18 18:03 POC ABG pO2 57 (80-105) L 10/05/18 18:03 POC ABG HCO3 29.0 (22-26 mml/L) 10/05/18 18:03 POC ABG Total CO2 30 (23-27mmol/L) 10/05/18 18:03 POC ABG O2 Sat 90 10/05/18 18:03 POC ABG Base Excess 5 ((-2) - (+3)mmol/L) 10/05/18 18:03 FiO2 21 % 10/05/18 18:03 Sodium 140 mmol/L (137-145) 10/14/18 07:11 Potassium 4.3 mmol/L (3.6-5.0) 10/14/18 07:11 Chloride 105.1 mmol/L (98-107) 10/14/18 07:11 Carbon Dioxide 28 mmol/L (22-30) 10/14/18 07:11 Anion Gap 11 mmol/L 10/14/18 07:11 BUN 24 mg/dL (7-17) H 10/14/18 07:11 Creatinine 4.2 mg/dL (0.7-1.2) H 10/14/18 07:11 Estimated GFR 14 ml/min 10/14/18 07:11 BUN/Creatinine Ratio 6 % 10/14/18 07:11 Glucose 100 mg/dL (65-100) 10/14/18 07:11 Calcium 7.3 mg/dL (8.4-10.2) L 10/14/18 07:11 Phosphorus 4.30 mg/dL (2.5-4.5) 10/14/18 07:11 Magnesium 1.70 mg/dL (1.7-2.3) 10/14/18 07:11 Iron 54 ug/dL (37-170) 10/14/18 07:11 TIBC 134 mcg/dL (250-450) L 10/14/18 07:11 Total Bilirubin 0.20 mg/dL (0.1-1.2) 10/14/18 07:11 AST 10 units/L (5-40) 10/14/18 07:11 ALT 6 units/L (7-56) L 10/14/18 07:11 Alkaline Phosphatase 48 units/L (35-129) 10/14/18 07:11 Total Creatine Kinase 559 units/L (30-135) H 09/26/18 07:17 Troponin T 0.012 ng/mL (0.00-0.029) 09/17/18 15:17 NT-Pro-B Natriuret Pep 992.5 pg/mL (0-450) H 09/17/18 15:17 Serum Total Protein 3.4 g/dL (6.1-8.1) L 09/19/18 05:45 Total Protein 3.8 g/dL (6.3-8.2) L 10/14/18 07:11 Albumin 1.5 g/dL (3.9-5) L 10/14/18 07:11 Albumin/Globulin Ratio 0.7 % 10/14/18 07:11 Rkdva-0-Oyagsscxk 0.3 g/dL (0.2-0.3) 09/19/18 05:45 Wcuzf-1-Cmbcuqrnb 0.8 g/dL (0.5-0.9) 09/19/18 05:45 Beta Globulins 0.4 g/dL (0.2-0.5) 09/19/18 05:45 Gamma Globulins 0.5 g/dL (0.8-1.7) L 09/19/18 05:45 Abnorm Protein Band 1 see below 09/19/18 05:45 PEP Interpretation see below H 09/19/18 05:45 Amylase 53 units/L (27-131) 09/25/18 13:53 Lipase 48 units/L (13-60) 09/25/18 13:53 Vitamin B12 446.3 pg/mL (211-911) 10/14/18 07:11 Folate 3.59 ng/mL (7.3-26.0) L 10/14/18 07:11 HCG, Qual Negative (Negative) 09/25/18 13:53 PTH Intact 46.07 pg/mL (15-65) 09/19/18 05:45 Urine Color Yellow (Yellow) 09/17/18 17:18 Urine Turbidity Cloudy (Clear) 09/17/18 17:18 Urine pH 5.0 (5.0-7.0) 09/17/18 17:18 Ur Specific [place] 1.029 (1.003-1.030) 09/17/18 17:18 Urine Protein >500 mg/dL (Negative) 09/17/18 17:18 Urine Glucose (UA) Neg mg/dL (Negative) 09/17/18 17:18 Urine Ketones Tr mg/dL (Negative) 09/17/18 17:18 Urine Blood Sm (Negative) 09/17/18 17:18 Urine Nitrite Neg (Negative) 09/17/18 17:18 Urine Bilirubin Neg (Negative) 09/17/18 17:18 Urine Urobilinogen < 2.0 mg/dL (<2.0) 09/17/18 17:18 Ur Leukocyte Esterase Neg (Negative) 09/17/18 17:18 Urine WBC (Auto) 15.0 /HPF (0.0-6.0) H 09/17/18 17:18 Urine RBC (Auto) 13.0 /HPF (0.0-6.0) 09/17/18 17:18 U Epithel Cells (Auto) 6.0 /HPF (0-13.0) 09/17/18 17:18 Urine Bacteria (Auto) 2+ /HPF (Negative) 09/17/18 17:18 Urine WBC Clumps 2+ /HPF 09/17/18 17:18 Hyaline Casts 6 /LPF 09/17/18 17:18 Urine Mucus Few /HPF 09/17/18 17:18 Urine Yeast (Budding) 2+ /HPF 09/17/18 17:18 Urine Eosinophils None seen (None Seen) 09/18/18 10:30 Urine Total Volume 475 ml 09/18/18 10:30 Urine Creatinine 97.5 mg/dL (0.1-20.0) H 09/21/18 07:00 Ur Creatinine 24 Hour 0.7 (0.8-2.8) L 09/18/18 10:30 Ur Total Protein 24 Hr 1073.50 mg/dL (2-200) H 09/18/18 10:30 Protein/Creatinin Ratio 7.26 09/21/18 07:00 Urine Sodium 53 mmol/L 09/21/18 07:00 Urine Urea Nitrogen 467 09/18/18 10:30 Ur Urea Nitrogen 24 Hr 2.22 09/18/18 10:30 Urine Total Protein 708 mg/dL (5-11.8) H 09/21/18 07:00 Urine Opiates Screen Presumptive negative 09/17/18 17:18 Urine Methadone Screen Presumptive negative 09/17/18 17:18 Ur Barbiturates Screen Presumptive negative 09/17/18 17:18 Valproic Acid 13.2 ug/mL (50-100) L 09/26/18 07:17 Ur Phencyclidine Scrn Presumptive negative 09/17/18 17:18 Ur Amphetamines Screen Presumptive negative 09/17/18 17:18 U Benzodiazepines Scrn Presumptive negative 09/17/18 17:18 Urine Cocaine Screen Presumptive negative 09/17/18 17:18 U Marijuana (THC) Screen Presumptive negative 09/17/18 17:18 Drugs of Abuse Note Disclamer 09/17/18 17:18 BI Screen Negative (Negative) 09/19/18 05:45 Proteinase 3 (PR3) Ab <1.0 AI (<1.0) 09/19/18 05:45 Myeloperoxidase Ab <1.0 AI (<1.0) 09/19/18 05:45 Glomerular Base Mem IgG See scanned result 09/19/18 05:45 Complement C3 143 mg/dL (83-193) 09/19/18 05:45 Complement C4 56 mg/dL (15-57) 09/19/18 05:45 Hepatitis A IgM Ab Non-reactive (NonReactive) 09/19/18 05:45 Hep Bs Antigen Non-reactive (Negative) 09/19/18 05:45 Hep B Core IgM Ab Non-reactive (NonReactive) 09/19/18 05:45 Hepatitis C Antibody Non-reactive (NonReactive) 09/19/18 05:45 HIV 1&2 Antibody Rapid Non react (Non React) 09/27/18 07:42 HIV P24 Antigen Non react (Non React) 09/27/18 07:42 Blood Type O POSITIVE 10/10/18 09:01 Antibody Screen Negative 10/10/18 09:01 Crossmatch See Detail 10/10/18 09:01 Active Medications - Current Medications Current Medications: Generic Name Dose Route Start Last Admin Trade Name Freq PRN Reason Stop Dose Admin Acetaminophen 650 mg 09/18/18 02:40 09/27/18 05:36 Tylenol PO 650 mg Q4H PRN Administration Pain MILD(1-3)/Fever >100.5/MENDOZA Atorvastatin Calcium 40 mg 09/18/18 22:00 10/13/18 23:01 Lipitor PO 40 mg QHS LUZ Administration Diphenhydramine HCl 50 mg 09/18/18 22:00 10/13/18 23:01 Benadryl PO 50 mg HS LUZ Administration Divalproex Sodium 500 mg 09/18/18 10:00 10/14/18 12:[address] PO 500 mg BID LUZ Administration Epoetin Luis 20,000 unit 09/26/18 12:23 10/11/18 19:01 Procrit SUB-Q 20,000 unit KUSHAL PRN Administration hemodialysis Furosemide 80 mg 09/29/18 06:00 10/14/18 05:50 Lasix PO 80 mg 0600,1800 LUZ Administration Haloperidol 5 mg 09/25/18 22:00 10/13/18 23:01 Haldol PO 5 mg HS LUZ Administration Heparin Sodium (Porcine) 2,000 unit 10/13/18 13:08 Heparin 10,000 Units/10 Ml IV KUSHAL PRN hemodialysis Heparin Sodium (Porcine) 5,000 unit 10/13/18 13:08 Heparin IV KUSHAL PRN hemodialysis Heparin Sodium (Porcine) 5,000 unit 10/13/18 14:00 10/14/18 13:45 Heparin SUB-Q Not Given Q8HR LUZ Hydralazine HCl 10 mg 09/22/18 06:28 09/22/18 12:12 Apresoline IV 10 mg Q4H PRN Administration systolic b/p >165 Hydromorphone HCl 0.5 mg 09/18/18 02:40 Dilaudid IV Q3H PRN Pain , Severe (7-10) Sodium Chloride 100 mls @ 999 mls/hr 10/11/18 15:08 Nacl 0.9% IV KUSHAL PRN Hypotension Sodium Chloride 100 mls @ 999 mls/hr 10/13/18 13:08 Nacl 0.9% IV KUSHAL PRN Hypotension Losartan Potassium 50 mg 10/04/18 10:00 10/14/18 13:44 Cozaar PO 50 mg QDAY LUZ Administration Metoprolol Tartrate 50 mg 10/07/18 13:00 10/14/18 12:24 Lopressor PO 50 mg BID LUZ Administration Ondansetron HCl 4 mg 09/18/18 02:40 10/07/18 03:15 Zofran IV 4 mg Q8H PRN Administration Nausea And Vomiting Oxycodone/Acetaminophen 1 tab 09/18/18 02:40 10/09/18 22:03 Percocet 5/325 PO 1 tab Q6H PRN Administration Pain, Moderate (4-6) Pantoprazole Sodium 40 mg 10/02/18 10:00 10/14/18 12:24 Protonix PO 40 mg DAILY LUZ Administration Prednisone 80 mg 10/12/18 10:00 10/14/18 12:25 Deltasone PO 80 mg QDAY LUZ Administration Sodium Chloride 10 ml 09/18/18 10:00 10/14/18 12:25 Sodium Chloride Flush Syringe 10 Ml IV 10 ml BID LUZ Administration Sodium Chloride 10 ml 09/18/18 02:40 10/11/18 22:43 Sodium Chloride Flush Syringe 10 Ml IV 10 ml PRN PRN Administration LINE FLUSH Nutrition/Malnutrition Assess - Dietary Evaluation Nutrition/Malnutrition Findings: Nutrition Notes Start: 09/24/18 15:36 Freq: Status: Active Protocol: Document 10/09/18 14:32 TW (Rec: 10/09/18 14:49 TW [id number]) Co-Sign 10/09/18 14:32 LP Nutrition Notes Initial or Follow up Reassessment Current Diagnosis Sepsis,Respiratory Failure Other Pertinent Diagnosis renal failure on HD, nephrotic syndrome, anemia Current Diet GI Soft Labs/Tests Cr 4.9 Pertinent Medications Lasix Height 5 ft 6 in Weight 141.7 kg [place] Body Weight (kg) 59.09 BMI 50.4 Intake Prior to Admission Excellent Weight Status Morbidly Obese Subjective/Other Information F/U for intakes and renal education. 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 Discussed with pt importance of HD and renal appropriate diet. Percent of energy/protein needs met: 100%/100% Burn Absent Trauma Absent #2 Nutrition Diagnosis Food and nutrition-related knowledge deficit Etiology lack of prior renal education As Evidenced by Signs and Symptoms pt reporting not knowing about renal disease Is patient on ventilator? No Is Patient Ambulatory and/or Out of Bed Yes [facility] [ 2695.875 [id number]] Kcal/Kg value to use for calculation 15 Approximate Energy Requirements Using 2126 kcal/Kg Calculation Used for Recommendations Kcal/kg Additional Notes Protein Needs: 71-77g (1.2-1. 3g/kg IBW) Fluid Needs: 1 ml/kcal Nutrition Intervention Change Diet Order: Continue GI soft Teaching Recipient Patient Learning Readiness Fair Teaching Methods Discussion,Handout Response to Teaching Reinforcement needed Education Handouts Provided Importance of HD, Renal diet Barriers to Learning Motivation RD phone number provided Yes Patient aware of follow up options Yes Goal #1 Continue to meet at least 75% of calorie and protein needs via PO intakes Anticipated Discharge Needs: Unable to determine at this time Revisit per MD consult or patient Sign Off request:
[2018-10-14] MEDS: BENADRYL PO SCH (22:00)
[2018-10-14] MEDS: HALDOL PO SCH (22:00)
[2018-10-15] MEDS: HEPARIN SUB-Q SCH ×3 (06:29→23:02)
[2018-10-15] MEDS: LASIX PO SCH ×2 (06:31→17:23)
--- NOTE | 2018-10-15 07:48 | Hem/Onc Progress Note ---
Assessment and Plan 1. History based on the notes of neck deep vein thrombosis. Nephrotic syndrome may have a role in her deep vein thrombosis. The management of this will become challenging. The patient had Radha-Mendez tear, anticoagulation is needed. However, due to recent bleed, we would be forced to avoid the same. 2. Nephrotic syndrome and proteinuria most likely has a role in her DVT formation. 3. Anemia with history of gastrointestinal bleed, status post transfusion. We will investigate and follow. 4. Mild thrombocytopenia. 5. Renal impairment. 6. Nephrotic syndrome, on steroids. 7. On Depakote. 8. On medications for hypertension and medications for hyperlipidemia. 9. Vancomycin-resistant enterococcal bacteriuria. 10. History of schizophrenia. 11. History of breast lump. This would need outpatient followup. 12. History of hemodialysis. 13. History of esophagogastroduodenoscopy. 14. History of hematemesis. I will follow the patient during inpatient stay and then in the clinic setting. 10/15 - d/w dr gilliam on 10/13 neck doppler not available - vascular team found the clot - when theny were doing the HD cath - Patient Problems (1) Deep vein thrombosis Current Visit: Yes Status: Acute Subjective Date of service: 10/15/18 Principal diagnosis: IJ DVT Interval history: no bleeding Objective - Constitutional Vitals: Last Vital Signs Temp 98.0 F 10/15/18 05:32 Pulse 68 10/15/18 05:32 Resp 24 10/15/18 05:32 BP 126/91 10/15/18 05:32 Pulse Ox 97 10/15/18 05:32 Pain Intensity (0-10): denies any pain General appearance: no acute distress Performance status: 3-limited selfcare - EENT Eyes: EOM intact ENT: clear oral mucosa Lymph node exam: negative cervical - Neck Neck: normal ROM - Respiratory Respiratory effort: Positive: normal Respiratory: bilateral: CTA - Cardiovascular Heart Sounds: Present: S1 & S2 Extremity abnormal: edema - Gastrointestinal General gastrointestinal: Present: soft, non-tender Rectal Exam: deferred - Genitourinary Female genitourinary: Present: deferred - Integumentary Integumentary: warm - Musculoskeletal Musculoskeletal: generalized weakness - Neurologic Neurologic: moves all extremities - Labs Lab Results: Laboratory Results - last 24 hr 10/14/18 10/14/18 10/14/18 07:11 07:11 07:11 WBC 7.5 RBC 2.58 L Hgb 7.5 L Hct 22.8 L MCV 88 MCH 29 MCHC 33 RDW 23.1 H Plt Count 134 L [place] % (Auto) Hematology Specialist Add Manual Diff Complete Total Counted 100 Seg Neuts % (Manual) 76.0 H Band Neutrophils % 0 Lymphocytes % (Manual) 14.0 Reactive Lymphs % (Man) 2.0 Monocytes % (Manual) 7.0 Eosinophils % (Manual) 0 Basophils % (Manual) 0 Metamyelocytes % 1.0 Myelocytes % 0 Promyelocytes % 0 Blast Cells % 0 Nucleated RBC % Not Reportable Seg Neutrophils # Man 5.7 Band Neutrophils # 0.0 Lymphocytes # (Manual) 1.1 L Abs React Lymphs (Man) 0.2 Monocytes # (Manual) 0.5 Eosinophils # (Manual) 0.0 Basophils # (Manual) 0.0 Metamyelocytes # 0.1 Myelocytes # 0.0 Promyelocytes # 0.0 Blast Cells # 0.0 WBC Morphology Not Reportable Hypersegmented Neuts Not Reportable Hyposegmented Neuts Not Reportable Hypogranular Neuts Not Reportable Smudge Cells Not Reportable Toxic Granulation Not Reportable Toxic Vacuolation Not Reportable Dohle Bodies Not Reportable Pelger-Huet Anomaly Not Reportable Latasha Rods Not Reportable Platelet Estimate Consistent w auto Clumped Platelets Not Reportable Plt Clumps, EDTA Not Reportable Large Platelets Not Reportable Giant Platelets Not Reportable Platelet Satelliting Not Reportable Plt Morphology Comment Not Reportable RBC Morphology Not Reportable Dimorphic RBCs Not Reportable Polychromasia Few Hypochromasia Rare Poikilocytosis Not Reportable Anisocytosis Not Reportable Microcytosis Not Reportable Macrocytosis Not Reportable Spherocytes Not Reportable Pappenheimer Bodies Not Reportable Sickle Cells Not Reportable Target Cells Not Reportable Tear Drop Cells Not Reportable Ovalocytes Few Helmet Cells Not Reportable [place] Bodies Not Reportable [place] Rings Not Reportable [place] Cells Not Reportable Bite Cells Not Reportable Crenated Cell Not Reportable Elliptocytes Not Reportable Acanthocytes (Spur) Not Reportable Rouleaux Not Reportable Hemoglobin C Crystals Not Reportable Schistocytes Not Reportable Malaria parasites Not Reportable Paul Bodies Not Reportable Hem Pathologist Commnt No Sodium 140 Potassium 4.3 Chloride 105.1 Carbon Dioxide 28 Anion Gap 11 BUN 24 H Creatinine 4.2 H Estimated GFR 14 BUN/Creatinine Ratio 6 Glucose 100 Calcium 7.3 L Phosphorus 4.30 Magnesium 1.70 Iron 54 TIBC 134 L Total Bilirubin 0.20 AST 10 ALT 6 L Alkaline Phosphatase 48 Total Protein 3.8 L Albumin 1.5 L Albumin/Globulin Ratio 0.7 Vitamin B12 446.3 Folate 10/14/18 07:11 WBC RBC Hgb Hct MCV MCH MCHC RDW Plt Count [place] % (Auto) Add Manual Diff Total Counted Seg Neuts % (Manual) Band Neutrophils % Lymphocytes % (Manual) Reactive Lymphs % (Man) Monocytes % (Manual) Eosinophils % (Manual) Basophils % (Manual) Metamyelocytes % Myelocytes % Promyelocytes % Blast Cells % Nucleated RBC % Seg Neutrophils # Man Band Neutrophils # Lymphocytes # (Manual) Abs React Lymphs (Man) Monocytes # (Manual) Eosinophils # (Manual) Basophils # (Manual) Metamyelocytes # Myelocytes # Promyelocytes # Blast Cells # WBC Morphology Hypersegmented Neuts Hyposegmented Neuts Hypogranular Neuts Smudge Cells Toxic Granulation Toxic Vacuolation Dohle Bodies Pelger-Huet Anomaly Latasha Rods Platelet Estimate Clumped Platelets Plt Clumps, EDTA Large Platelets Giant Platelets Platelet Satelliting Plt Morphology Comment RBC Morphology Dimorphic RBCs Polychromasia Hypochromasia Poikilocytosis Anisocytosis Microcytosis Macrocytosis Spherocytes Pappenheimer Bodies Sickle Cells Target Cells Tear Drop Cells Ovalocytes Helmet Cells [place]don[place] Bodies [place] Rings [place] Cells Bite Cells Crenated Cell Elliptocytes Acanthocytes (Spur) Rouleaux Hemoglobin C Crystals Schistocytes Malaria parasites Paul Bodies Hem Pathologist Commnt Sodium Potassium Chloride Carbon Dioxide Anion Gap BUN Creatinine Estimated GFR BUN/Creatinine Ratio Glucose Calcium Phosphorus Magnesium Iron TIBC Total Bilirubin AST ALT Alkaline Phosphatase Total Protein Albumin Albumin/Globulin Ratio Vitamin B12 Folate 3.59 L Medications & Allergies - Medications Allergies/Adverse Reactions: Allergies No Known Allergies Allergy (Unverified 09/17/18 15:05) Home Medications: Home Medications Medication Instructions Recorded Confirmed Last Taken Type Divalproex Sodium [Depakote] 500 mg PO BID 09/17/18 09/17/18 Unknown History Haldol (Nf) 10 mg PO QHS 09/17/18 10/06/18 Unknown History Invega Sustenna 156 mg IM QMONTH 09/17/18 10/06/18 Unknown History diphenhydrAMINE [Benadryl CAP] 50 mg PO HS 09/17/18 09/17/18 Unknown History Active Medications: Generic Name Dose Route Start Last Admin Trade Name Freq PRN Reason Stop Dose Admin Acetaminophen 650 mg 09/18/18 02:40 09/27/18 05:36 Tylenol PO 650 mg Q4H PRN Administration Pain MILD(1-3)/Fever >100.5/MENDOZA Atorvastatin Calcium 40 mg 09/18/18 22:00 10/14/18 22:00 Lipitor PO Not Given QHS LUZ Diphenhydramine HCl 50 mg 09/18/18 22:00 10/14/18 22:00 Benadryl PO Not Given HS LUZ Divalproex Sodium 500 mg 09/18/18 10:00 10/14/18 22:[address] PO Not Given BID LUZ Epoetin Luis 20,000 unit 09/26/18 12:23 10/11/18 19:01 Procrit SUB-Q 20,000 unit KUSHAL PRN Administration hemodialysis Furosemide 80 mg 09/29/18 06:00 10/15/18 06:31 Lasix PO 80 mg 0600,1800 LUZ Administration Haloperidol 5 mg 09/25/18 22:00 10/14/18 22:00 Haldol PO Not Given HS LUZ Heparin Sodium (Porcine) 2,000 unit 10/13/18 13:08 Heparin 10,000 Units/10 Ml IV KUSHAL PRN hemodialysis Heparin Sodium (Porcine) 5,000 unit 10/13/18 13:08 Heparin IV KUSHAL PRN hemodialysis Heparin Sodium (Porcine) 5,000 unit 10/13/18 14:00 10/15/18 06:29 Heparin SUB-Q Not Given Q8HR LUZ Hydralazine HCl 10 mg 09/22/18 06:28 09/22/18 12:12 Apresoline IV 10 mg Q4H PRN Administration systolic b/p >165 Hydromorphone HCl 0.5 mg 09/18/18 02:40 Dilaudid IV Q3H PRN Pain , Severe (7-10) Sodium Chloride 100 mls @ 999 mls/hr 10/11/18 15:08 Nacl 0.9% IV KUSHAL PRN Hypotension Sodium Chloride 100 mls @ 999 mls/hr 10/13/18 13:08 Nacl 0.9% IV KUSHAL PRN Hypotension Losartan Potassium 50 mg 10/04/18 10:00 10/14/18 13:44 Cozaar PO 50 mg QDAY LUZ Administration Metoprolol Tartrate 50 mg 10/07/18 13:00 10/14/18 22:00 Lopressor PO Not Given BID LUZ Ondansetron HCl 4 mg 09/18/18 02:40 10/07/18 03:15 Zofran IV 4 mg Q8H PRN Administration Nausea And Vomiting Oxycodone/Acetaminophen 1 tab 09/18/18 02:40 10/09/18 22:03 Percocet 5/325 PO 1 tab Q6H PRN Administration Pain, Moderate (4-6) Pantoprazole Sodium 40 mg 10/02/18 10:00 10/14/18 12:24 Protonix PO 40 mg DAILY LUZ Administration Prednisone 80 mg 10/12/18 10:00 10/14/18 12:25 Deltasone PO 80 mg QDAY LUZ Administration Sodium Chloride 10 ml 09/18/18 10:00 10/14/18 22:00 Sodium Chloride Flush Syringe 10 Ml IV Not Given BID LUZ Sodium Chloride 10 ml 09/18/18 02:40 10/11/18 22:43 Sodium Chloride Flush Syringe 10 Ml IV 10 ml PRN PRN Administration LINE FLUSH
[2018-10-15 08:52] LABS: Calcium 6.9 mg/dL (8.4-10.2)
[2018-10-15 11:08] LABS: Basophils % (Auto) 0.6 % (0.0-1.8); Eosinophils % (Auto) 0.1 % (0.0-4.3); Hematocrit 23.7 % (30.3-42.9); Hemoglobin 7.5 gm/dl (10.1-14.3); Lymphocytes # (Auto) 1.4 K/mm3 (1.2-5.4); Lymphocytes % (Auto) 16.5 % (13.4-35.0); Mean Corpuscular HGB Conc 32 % (30-34); Mean Corpuscular Volume 89 fl (79-97); Monocytes # (Auto) 1.3 K/mm3 (0.0-0.8); Monocytes % (Auto) 15.6 % (0.0-7.3); Platelet Count 154 K/mm3 (140-440); Red Blood Count 2.67 M/mm3 (3.65-5.03)
[2018-10-15 11:30] LABS: Calcium 6.8 mg/dL (8.4-10.2)
[2018-10-15] MEDS: DELTASONE PO SCH (12:15)
[2018-10-15] MEDS: LOPRESSOR PO SCH ×2 (12:15→23:02)
[2018-10-15] MEDS: PROTONIX PO SCH (12:16)
[2018-10-15] MEDS: COZAAR PO SCH (12:16)
[2018-10-15] MEDS: SODIUM CHLORIDE FLUSH SYRINGE 10 ML IV SCH ×2 (12:17→23:02)
--- NOTE | 2018-10-15 13:13 | Progress Note ---
Assessment and Plan 1. Acute kidney injury: LUCILA secondary to blocked tubules from Proteinuria. Patient was started on hemodialysis on 09/24/2018 due to worsening renal function, anasarca and suspected pulmonary edema. Last dialyzed 2 days ago. Patient has been refusing HD / Isolated UF intermittently. Likely she require HD tomorrow. Renal prognosis guarded. Hold ARB for now. 2. Nephrotic syndrome: Kidney bx showed Tip variant FSGS. Continue Prednisone. Monitor renal function. On Heparin to prevent DVT. Continue Statin. 3. FEN: Volume overload, UF with HD. On Lasix. Hyperkalemia, improved. 4. VRE bacteriuria. 5. HTN: Monitor BP. 6. Anemia: GI bleed. S/p PRBC. Epogen with HD. 7. Schizophrenia. 8. Medical non-compliance. Await placement. Subjective Date of service: 10/15/18 Principal diagnosis: IJ DVT Interval history: Patient was seen and examined at the bedside. Doing ok. Objective - Vital Signs Vital signs: Vital Signs - 12hr 10/15/18 10/15/18 10/15/18 05:32 12:15 12:16 Temperature 98.0 F Pulse Rate 68 68 68 Respiratory 24 Rate Blood Pressure 126/91 130/76 130/76 O2 Sat by Pulse 97 Oximetry - General Appearance General appearance: well-developed, well-nourished, appears stated age, obese, other (not in distress, right IJ tunnel catheter.) EENT: ATNC, PERRL, hearing intact, vision intact Neck: supple Respiratory: Present: Clear to Ascultation Cardiology: regular, S1S2, no murmurs Gastrointestinal: normoactive bowel sounds, no tenderness, no distended Integumentary: warm and dry Neurologic: no focal deficit, no asterixis, alert and oriented x3 Musculoskeletal: other (2+ edema of both LEs noted) - Lab 10/15/18 10:27 10/15/18 10:27 Most recent lab results Calcium 6.8 mg/dL (8.4-10.2) L 10/15/18 10:27 Phosphorus 4.30 mg/dL (2.5-4.5) 10/14/18 07:11 Magnesium 1.70 mg/dL (1.7-2.3) 10/14/18 07:11 Urine Creatinine 97.5 mg/dL (0.1-20.0) H 09/21/18 07:00 Ur Total Protein 24 Hr 1073.50 mg/dL (2-200) H 09/18/18 10:30 Urine Sodium 53 mmol/L 09/21/18 07:00 Urine Total Protein 708 mg/dL (5-11.8) H 09/21/18 07:00 Medications & Allergies - Medications Allergies/Adverse Reactions: Allergies No Known Allergies Allergy (Unverified 09/17/18 15:05) Home Medications: Home Medications Medication Instructions Recorded Confirmed Last Taken Type Divalproex Sodium [Depakote] 500 mg PO BID 09/17/18 09/17/18 Unknown History Haldol (Nf) 10 mg PO QHS 09/17/18 10/06/18 Unknown History Invega Sustenna 156 mg IM QMONTH 09/17/18 10/06/18 Unknown History diphenhydrAMINE [Benadryl CAP] 50 mg PO HS 09/17/18 09/17/18 Unknown History Active Medications: Generic Name Dose Route Start Last Admin Trade Name Freq PRN Reason Stop Dose Admin Acetaminophen 650 mg 09/18/18 02:40 09/27/18 05:36 Tylenol PO 650 mg Q4H PRN Administration Pain MILD(1-3)/Fever >100.5/MENDOZA Atorvastatin Calcium 40 mg 09/18/18 22:00 10/14/18 22:00 Lipitor PO Not Given QHS [facility] Diphenhydramine HCl 50 mg 09/18/18 22:00 10/14/18 22:00 Benadryl PO Not Given HS [facility] Divalproex Sodium 500 mg 09/18/18 10:00 10/15/18 12:[address] PO 500 mg BID LUZ Administration Epoetin Luis 20,000 unit 09/26/18 12:23 10/11/18 19:01 Procrit SUB-Q 20,000 unit KUSHAL PRN Administration hemodialysis Furosemide 80 mg 09/29/18 06:00 10/15/18 06:31 Lasix PO 80 mg 0600,1800 LUZ Administration Haloperidol 5 mg 09/25/18 22:00 10/14/18 22:00 Haldol PO Not Given HS [facility] Heparin Sodium (Porcine) 2,000 unit 10/13/18 13:08 Heparin 10,000 Units/10 Ml IV KUSHAL PRN hemodialysis Heparin Sodium (Porcine) 5,000 unit 10/13/18 13:08 Heparin IV KUSHAL PRN hemodialysis Heparin Sodium (Porcine) 5,000 unit 10/13/18 14:00 10/15/18 06:29 Heparin SUB-Q Not Given Q8HR LUZ Hydralazine HCl 10 mg 09/22/18 06:28 09/22/18 12:12 Apresoline IV 10 mg Q4H PRN Administration systolic b/p >165 Hydromorphone HCl 0.5 mg 09/18/18 02:40 Dilaudid IV Q3H PRN Pain , Severe (7-10) Sodium Chloride 100 mls @ 999 mls/hr 10/13/18 13:08 Nacl 0.9% IV KUSHAL PRN Hypotension Losartan Potassium 50 mg 10/04/18 10:00 10/15/18 12:16 Cozaar PO 50 mg QDAY LUZ Administration Metoprolol Tartrate 50 mg 10/07/18 13:00 10/15/18 12:15 Lopressor PO 50 mg BID LUZ Administration Ondansetron HCl 4 mg 09/18/18 02:40 10/07/18 03:15 Zofran IV 4 mg Q8H PRN Administration Nausea And Vomiting Oxycodone/Acetaminophen 1 tab 09/18/18 02:40 10/09/18 22:03 Percocet 5/325 PO 1 tab Q6H PRN Administration Pain, Moderate (4-6) Pantoprazole Sodium 40 mg 10/02/18 10:00 10/15/18 12:16 Protonix PO 40 mg DAILY LUZ Administration Prednisone 80 mg 10/12/18 10:00 10/15/18 12:15 Deltasone PO 80 mg QDAY LUZ Administration Sodium Chloride 10 ml 09/18/18 10:00 10/15/18 12:17 Sodium Chloride Flush Syringe 10 Ml IV 10 ml BID LUZ Administration Sodium Chloride 10 ml 09/18/18 02:40 10/11/18 22:43 Sodium Chloride Flush Syringe 10 Ml IV 10 ml PRN PRN Administration LINE FLUSH
--- NOTE | 2018-10-15 14:10 | Progress Note ---
Assessment and Plan Assessment and plan: Patient is a 47 yo woman with a history of Obesity, HTN and Schizophrenia who presented to the ER with bilateral leg swelling, SOB and increase in the abdominal girth and weight gain of ~86 pounds in 10 weeks. Patient denies any h/o heart disease or Liver problem. Labs were significant for creatinine of 2.2, Hb 8.5, albumin 1.4 and 3+ protein in the urine. Patient was admitted with provisional diagnosis of Nephrotic syndrome. Nephrology was consulted for further evaluation and recommended Kidney biopsy; which patient refused on multiple occasions so Radiology declined to re-schedule the procedure. Also, During hospital coarse, she was found to have coffee ground emesis and EGD was done on 09/26/18 and showed M-W tear. Her hemoglobin was steadily dropping and she initially refused blood transfusion until Mr. Galeas convinced her to get the blood transfusion and do Hemodialysis which she refuses at times. 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 Quinn. 09/26/18 EGD Pre-op diagnosis: gi bleed Post-op diagnosis: same Findings: EGD: large hiatal hernia - m-w tear with pigmented area jut above g-e junction - mild gastritis - negative other Procedure: EGD =FSGN steroids per Nephrology =Nephrotic syndrome. Urine protein quantification pending. Follow BI, ANCA and complements. Renal ultrasound negative. Patient unfortunately refused kidney biopsy. =Coffee-ground emesis with Radha Mendez Tear. GI consulted H&H dropped and she refused blood transfusion today. =Acute on chronic Blood loss anemia due to above =Right lower extremity thigh pain. Doppler lower extremities bilaterally negative for DVT =Left breast swelling, unknown at present. Need outpatient Mammogram and U/S =Morbid obesity, bmi 55.2: lifestyle modification =Medical noncompliance. Patient intermittently at times refusing care. Psych/Mik told me she has decision making capacity. =Schizophrenia, Bipolar disorder. Continue current medications.. As above. P sych consulted =Hyperkalemia. Kayexalate. Recheck BMP in the morning. =Sepsis. Left lower lobe pneumonia. Present on admission. Continue IV antibio tics. Etiology secondary to pneumonia and UTI. =ARF, vasomotor nephropathy, poa =VRE: ID is following, ordered isolation =DVT prophylaxis: patient is refusing injections Patient is apart of [facility] and ACT Team, call, psychiatrist Dr. Sivan molina @ [phone] and If Dr. Tatum is not available, call coordinator of care, Rao Galeas [phone]. Disposition: continue inpatient care, needs HD dialysis setup and new placement. History Interval history: Patient was seen and examined. Follow-up on current diagnosis of GIB. Overnight uneventful. Patient denies any chest pain, shortness breath, nausea/vomiting or severe headaches. Imaging, nursing note, chart, labs and old chart reviewed. Discussed with patient. Hospitalist Physical - Physical exam Narrative exam: GEN: chronic disable, NAD, Awake, Alert, Orientated, bmi 47.5 HEENT: NCAT, EOMI, PERRL, OP Clear NECK: supple, no adenopathy, no thyromegaly, no JVD CVS/HEART: Regular tachy, normal S1S2, pulses present bilaterally CHEST/LUNGS: diminished bs bilateral, poor effort, Symmetrical chest expansion, good air entry bilaterally GI/Abdomen: soft, NTND, good bowel sounds, no guarding or rebound /Bladder: no suprapubic tenderness, no CVA or paraspinal tenderness EXT/Skin: ble edema no obvious rash MSK: FROM x 4 Neuro: CN 2-12 grossly intact, no new focal deficits Psych: calm - Constitutional Vitals: Temp Pulse Resp BP Pulse Ox 98.9 F 78 20 148/89 100 10/15/18 12:40 10/15/18 12:40 10/15/18 12:40 10/15/18 12:40 10/15/18 12:40 General appearance: Absent: mild distress (with right neck pressure) Results - Labs CBC & Chem 7: 10/15/18 10:27 10/15/18 10:27 Labs: Laboratory Last Values WBC 8.5 K/mm3 (4.5-11.0) 10/15/18 10:27 RBC 2.67 M/mm3 (3.65-5.03) L 10/15/18 10:27 Hgb 7.5 gm/dl (10.1-14.3) L 10/15/18 10:27 Hct 23.7 % (30.3-42.9) L 10/15/18 10:27 MCV 89 fl (79-97) 10/15/18 10:27 MCH 28 pg (28-32) 10/15/18 10:27 MCHC 32 % (30-34) 10/15/18 10:27 RDW 24.0 % (13.2-15.2) H 10/15/18 10:27 Plt Count 154 K/mm3 (140-440) 10/15/18 10:27 Lymph % (Auto) 16.5 % (13.4-35.0) 10/15/18 10:27 Bath % (Auto) 15.6 % (0.0-7.3) H 10/15/18 10:27 Eos % (Auto) 0.1 % (0.0-4.3) 10/15/18 10:27 Baso % (Auto) 0.6 % (0.0-1.8) 10/15/18 10:27 Lymph # 1.4 K/mm3 (1.2-5.4) 10/15/18 10:27 Bath # 1.3 K/mm3 (0.0-0.8) H 10/15/18 10:27 Eos # 0.0 K/mm3 (0.0-0.4) 10/15/18 10:27 Baso # 0.0 K/mm3 (0.0-0.1) 10/15/18 10:27 Add Manual Diff Complete 10/14/18 07:11 Total Counted 100 10/14/18 07:11 Seg Neutrophils % 67.2 % (40.0-70.0) 10/15/18 10:27 Seg Neuts % (Manual) 76.0 % (40.0-70.0) H 10/14/18 07:11 Band Neutrophils % 0 % 10/14/18 07:11 Lymphocytes % (Manual) 14.0 % (13.4-35.0) 10/14/18 07:11 Reactive Lymphs % (Man) 2.0 % 10/14/18 07:11 Monocytes % (Manual) 7.0 % (0.0-7.3) 10/14/18 07:11 Eosinophils % (Manual) 0 % (0.0-4.3) 10/14/18 07:11 Basophils % (Manual) 0 % (0.0-1.8) 10/14/18 07:11 Metamyelocytes % 1.0 % 10/14/18 07:11 Myelocytes % 0 % 10/14/18 07:11 Promyelocytes % 0 % 10/14/18 07:11 Blast Cells % 0 % 10/14/18 07:11 Nucleated RBC % Not Reportable 10/14/18 07:11 Seg Neutrophils # 5.7 K/mm3 (1.8-7.7) 10/15/18 10:27 Seg Neutrophils # Man 5.7 K/mm3 (1.8-7.7) 10/14/18 07:11 Band Neutrophils # 0.0 K/mm3 10/14/18 07:11 Lymphocytes # (Manual) 1.1 K/mm3 (1.2-5.4) L 10/14/18 07:11 Abs React Lymphs (Man) 0.2 K/mm3 10/14/18 07:11 Monocytes # (Manual) 0.5 K/mm3 (0.0-0.8) 10/14/18 07:11 Eosinophils # (Manual) 0.0 K/mm3 (0.0-0.4) 10/14/18 07:11 Basophils # (Manual) 0.0 K/mm3 (0.0-0.1) 10/14/18 07:11 Metamyelocytes # 0.1 K/mm3 10/14/18 07:11 Myelocytes # 0.0 K/mm3 10/14/18 07:11 Promyelocytes # 0.0 K/mm3 10/14/18 07:11 Blast Cells # 0.0 K/mm3 10/14/18 07:11 WBC Morphology Not Reportable 10/14/18 07:11 Hypersegmented Neuts Not Reportable 10/14/18 07:11 Hyposegmented Neuts Not Reportable 10/14/18 07:11 Hypogranular Neuts Not Reportable 10/14/18 07:11 Smudge Cells Not Reportable 10/14/18 07:11 Toxic Granulation Not Reportable 10/14/18 07:11 Toxic Vacuolation Not Reportable 10/14/18 07:11 Dohle Bodies Not Reportable 10/14/18 07:11 Pelger-Huet Anomaly Not Reportable 10/14/18 07:11 Latasha Rods Not Reportable 10/14/18 07:11 Platelet Estimate Consistent w auto 10/14/18 07:11 Clumped Platelets Not Reportable 10/14/18 07:11 Plt Clumps, EDTA Not Reportable 10/14/18 07:11 Large Platelets Not Reportable 10/14/18 07:11 Giant Platelets Not Reportable 10/14/18 07:11 Platelet Satelliting Not Reportable 10/14/18 07:11 Plt Morphology Comment Not Reportable 10/14/18 07:11 RBC Morphology Not Reportable 10/14/18 07:11 Dimorphic RBCs Not Reportable 10/14/18 07:11 Polychromasia Few 10/14/18 07:11 Hypochromasia Rare 10/14/18 07:11 Poikilocytosis Not Reportable 10/14/18 07:11 Anisocytosis Not Reportable 10/14/18 07:11 Microcytosis Not Reportable 10/14/18 07:11 Macrocytosis Not Reportable 10/14/18 07:11 Spherocytes Not Reportable 10/14/18 07:11 Pappenheimer Bodies Not Reportable 10/14/18 07:11 Sickle Cells Not Reportable 10/14/18 07:11 Target Cells Not Reportable 10/14/18 07:11 Tear Drop Cells Not Reportable 10/14/18 07:11 Ovalocytes Few 10/14/18 07:11 Helmet Cells Not Reportable 10/14/18 07:11 Maldonado-Roe Bodies Not Reportable 10/14/18 07:11 [place] Rings Not Reportable 10/14/18 07:11 [place] Cells Not Reportable 10/14/18 07:11 Bite Cells Not Reportable 10/14/18 07:11 Crenated Cell Not Reportable 10/14/18 07:11 Elliptocytes Not Reportable 10/14/18 07:11 Acanthocytes (Spur) Not Reportable 10/14/18 07:11 Rouleaux Not Reportable 10/14/18 07:11 Hemoglobin C Crystals Not Reportable 10/14/18 07:11 Schistocytes Not Reportable 10/14/18 07:11 Malaria parasites Not Reportable 10/14/18 07:11 Paul Bodies Not Reportable 10/14/18 07:11 Hem Pathologist Commnt No 10/14/18 07:11 PT 13.4 Sec. (12.2-14.9) 10/10/18 09:01 INR 0.96 (0.87-1.13) 10/10/18 09:01 APTT 25.0 Sec. (24.2-36.6) 10/10/18 09:01 POC ABG pH 7.434 (7.35-7.45) 10/05/18 18:03 POC ABG pCO2 43.4 (35-45) 10/05/18 18:03 POC ABG pO2 57 (80-105) L 10/05/18 18:03 POC ABG HCO3 29.0 (22-26 mml/L) 10/05/18 18:03 POC ABG Total CO2 30 (23-27mmol/L) 10/05/18 18:03 POC ABG O2 Sat 90 10/05/18 18:03 POC ABG Base Excess 5 ((-2) - (+3)mmol/L) 10/05/18 18:03 FiO2 21 % 10/05/18 18:03 Sodium 143 mmol/L (137-145) 10/15/18 10:27 Potassium 4.6 mmol/L (3.6-5.0) 10/15/18 10:27 Chloride 107.1 mmol/L (98-107) H 10/15/18 10:27 Carbon Dioxide 29 mmol/L (22-30) 10/15/18 10:27 Anion Gap 12 mmol/L 10/15/18 10:27 BUN 33 mg/dL (7-17) H 10/15/18 10:27 Creatinine 4.4 mg/dL (0.7-1.2) H 10/15/18 10:27 Estimated GFR 13 ml/min 10/15/18 10:27 BUN/Creatinine Ratio 8 % 10/15/18 10:27 Glucose 107 mg/dL (65-100) H 10/15/18 10:27 Calcium 6.8 mg/dL (8.4-10.2) L 10/15/18 10:27 Phosphorus 4.30 mg/dL (2.5-4.5) 10/14/18 07:11 Magnesium 1.70 mg/dL (1.7-2.3) 10/14/18 07:11 Iron 54 ug/dL (37-170) 10/14/18 07:11 TIBC 134 mcg/dL (250-450) L 10/14/18 07:11 Total Bilirubin 0.20 mg/dL (0.1-1.2) 10/14/18 07:11 AST 10 units/L (5-40) 10/14/18 07:11 ALT 6 units/L (7-56) L 10/14/18 07:11 Alkaline Phosphatase 48 units/L (35-129) 10/14/18 07:11 Total Creatine Kinase 559 units/L (30-135) H 09/26/18 07:17 Troponin T 0.012 ng/mL (0.00-0.029) 09/17/18 15:17 NT-Pro-B Natriuret Pep 992.5 pg/mL (0-450) H 09/17/18 15:17 Serum Total Protein 3.4 g/dL (6.1-8.1) L 09/19/18 05:45 Total Protein 3.8 g/dL (6.3-8.2) L 10/14/18 07:11 Albumin 1.5 g/dL (3.9-5) L 10/14/18 07:11 Albumin/Globulin Ratio 0.7 % 10/14/18 07:11 Oewjc-0-Qhrgtumxw 0.3 g/dL (0.2-0.3) 09/19/18 05:45 Nrfmu-5-Sxxsmdmpi 0.8 g/dL (0.5-0.9) 09/19/18 05:45 Beta Globulins 0.4 g/dL (0.2-0.5) 09/19/18 05:45 Gamma Globulins 0.5 g/dL (0.8-1.7) L 09/19/18 05:45 Abnorm Protein Band 1 see below 09/19/18 05:45 PEP Interpretation see below H 09/19/18 05:45 Amylase 53 units/L (27-131) 09/25/18 13:53 Lipase 48 units/L (13-60) 09/25/18 13:53 Vitamin B12 446.3 pg/mL (211-911) 10/14/18 07:11 Folate 3.59 ng/mL (7.3-26.0) L 10/14/18 07:11 HCG, Qual Negative (Negative) 09/25/18 13:53 PTH Intact 46.07 pg/mL (15-65) 09/19/18 05:45 Urine Color Yellow (Yellow) 09/17/18 17:18 Urine Turbidity Cloudy (Clear) 09/17/18 17:18 Urine pH 5.0 (5.0-7.0) 09/17/18 17:18 Ur Specific [place] 1.029 (1.003-1.030) 09/17/18 17:18 Urine Protein >500 mg/dL (Negative) 09/17/18 17:18 Urine Glucose (UA) Neg mg/dL (Negative) 09/17/18 17:18 Urine Ketones Tr mg/dL (Negative) 09/17/18 17:18 Urine Blood Sm (Negative) 09/17/18 17:18 Urine Nitrite Neg (Negative) 09/17/18 17:18 Urine Bilirubin Neg (Negative) 09/17/18 17:18 Urine Urobilinogen < 2.0 mg/dL (<2.0) 09/17/18 17:18 Ur Leukocyte Esterase Neg (Negative) 09/17/18 17:18 Urine WBC (Auto) 15.0 /HPF (0.0-6.0) H 09/17/18 17:18 Urine RBC (Auto) 13.0 /HPF (0.0-6.0) 09/17/18 17:18 U Epithel Cells (Auto) 6.0 /HPF (0-13.0) 09/17/18 17:18 Urine Bacteria (Auto) 2+ /HPF (Negative) 09/17/18 17:18 Urine WBC Clumps 2+ /HPF 09/17/18 17:18 Hyaline Casts 6 /LPF 09/17/18 17:18 Urine Mucus Few /HPF 09/17/18 17:18 Urine Yeast (Budding) 2+ /HPF 09/17/18 17:18 Urine Eosinophils None seen (None Seen) 09/18/18 10:30 Urine Total Volume 475 ml 09/18/18 10:30 Urine Creatinine 97.5 mg/dL (0.1-20.0) H 09/21/18 07:00 Ur Creatinine 24 Hour 0.7 (0.8-2.8) L 09/18/18 10:30 Ur Total Protein 24 Hr 1073.50 mg/dL (2-200) H 09/18/18 10:30 Protein/Creatinin Ratio 7.26 09/21/18 07:00 Urine Sodium 53 mmol/L 09/21/18 07:00 Urine Urea Nitrogen 467 09/18/18 10:30 Ur Urea Nitrogen 24 Hr 2.22 09/18/18 10:30 Urine Total Protein 708 mg/dL (5-11.8) H 09/21/18 07:00 Urine Opiates Screen Presumptive negative 09/17/18 17:18 Urine Methadone Screen Presumptive negative 09/17/18 17:18 Ur Barbiturates Screen Presumptive negative 09/17/18 17:18 Valproic Acid 13.2 ug/mL (50-100) L 09/26/18 07:17 Ur Phencyclidine Scrn Presumptive negative 09/17/18 17:18 Ur Amphetamines Screen Presumptive negative 09/17/18 17:18 U Benzodiazepines Scrn Presumptive negative 09/17/18 17:18 Urine Cocaine Screen Presumptive negative 09/17/18 17:18 U Marijuana (THC) Screen Presumptive negative 09/17/18 17:18 Drugs of Abuse Note Disclamer 09/17/18 17:18 BI Screen Negative (Negative) 09/19/18 05:45 Proteinase 3 (PR3) Ab <1.0 AI (<1.0) 09/19/18 05:45 Myeloperoxidase Ab <1.0 AI (<1.0) 09/19/18 05:45 Glomerular Base Mem IgG See scanned result 09/19/18 05:45 Complement C3 143 mg/dL (83-193) 09/19/18 05:45 Complement C4 56 mg/dL (15-57) 09/19/18 05:45 Hepatitis A IgM Ab Non-reactive (NonReactive) 09/19/18 05:45 Hep Bs Antigen Non-reactive (Negative) 09/19/18 05:45 Hep B Core IgM Ab Non-reactive (NonReactive) 09/19/18 05:45 Hepatitis C Antibody Non-reactive (NonReactive) 09/19/18 05:45 HIV 1&2 Antibody Rapid Non react (Non React) 09/27/18 07:42 HIV P24 Antigen Non react (Non React) 09/27/18 07:42 Blood Type O POSITIVE 10/10/18 09:01 Antibody Screen Negative 10/10/18 09:01 Crossmatch See Detail 10/10/18 09:01 Active Medications - Current Medications Current Medications: Generic Name Dose Route Start Last Admin Trade Name Freq PRN Reason Stop Dose Admin Acetaminophen 650 mg 09/18/18 02:40 09/27/18 05:36 Tylenol PO 650 mg Q4H PRN Administration Pain MILD(1-3)/Fever >100.5/MENDOZA Atorvastatin Calcium 40 mg 09/18/18 22:00 10/14/18 22:00 Lipitor PO Not Given QHS LUZ Diphenhydramine HCl 50 mg 09/18/18 22:00 10/14/18 22:00 Benadryl PO Not Given HS LUZ Divalproex Sodium 500 mg 09/18/18 10:00 10/15/18 12:[address] PO 500 mg BID LUZ Administration Epoetin Luis 20,000 unit 09/26/18 12:23 10/11/18 19:01 Procrit SUB-Q 20,000 unit KUSHAL PRN Administration hemodialysis Furosemide 80 mg 09/29/18 06:00 10/15/18 06:31 Lasix PO 80 mg 0600,1800 LUZ Administration Haloperidol 5 mg 09/25/18 22:00 10/14/18 22:00 Haldol PO Not Given HS LUZ Heparin Sodium (Porcine) 2,000 unit 10/13/18 13:08 Heparin 10,000 Units/10 Ml IV KUSHAL PRN hemodialysis Heparin Sodium (Porcine) 5,000 unit 10/13/18 13:08 Heparin IV KUSHAL PRN hemodialysis Heparin Sodium (Porcine) 5,000 unit 10/13/18 14:00 10/15/18 06:29 Heparin SUB-Q Not Given Q8HR [facility] Hydralazine HCl 10 mg 09/22/18 06:28 09/22/18 12:12 Apresoline IV 10 mg Q4H PRN Administration systolic b/p >165 Hydromorphone HCl 0.5 mg 09/18/18 02:40 Dilaudid IV Q3H PRN Pain , Severe (7-10) Sodium Chloride 100 mls @ 999 mls/hr 10/13/18 13:08 Nacl 0.9% IV KUSHAL PRN Hypotension Losartan Potassium 50 mg 10/04/18 10:00 10/15/18 12:16 Cozaar PO 50 mg QDAY LZU Administration Metoprolol Tartrate 50 mg 10/07/18 13:00 10/15/18 12:15 Lopressor PO 50 mg BID LUZ Administration Ondansetron HCl 4 mg 09/18/18 02:40 10/07/18 03:15 Zofran IV 4 mg Q8H PRN Administration Nausea And Vomiting Oxycodone/Acetaminophen 1 tab 09/18/18 02:40 10/09/18 22:03 Percocet 5/325 PO 1 tab Q6H PRN Administration Pain, Moderate (4-6) Pantoprazole Sodium 40 mg 10/02/18 10:00 10/15/18 12:16 Protonix PO 40 mg DAILY LUZ Administration Prednisone 80 mg 10/12/18 10:00 10/15/18 12:15 Deltasone PO 80 mg QDAY LUZ Administration Sodium Chloride 10 ml 09/18/18 10:00 10/15/18 12:17 Sodium Chloride Flush Syringe 10 Ml IV 10 ml BID LUZ Administration Sodium Chloride 10 ml 09/18/18 02:40 10/11/18 22:43 Sodium Chloride Flush Syringe 10 Ml IV 10 ml PRN PRN Administration LINE FLUSH Nutrition/Malnutrition Assess - Dietary Evaluation Nutrition/Malnutrition Findings: Nutrition Notes Start: 09/24/18 15:36 Freq: Status: Active Protocol: Document 10/09/18 14:32 TW (Rec: 10/09/18 14:49 TW [id number]) Co-Sign 10/09/18 14:32 LP Nutrition Notes Initial or Follow up Reassessment Current Diagnosis Sepsis,Respiratory Failure Other Pertinent Diagnosis renal failure on HD, nephrotic syndrome, anemia Current Diet GI Soft Labs/Tests Cr 4.9 Pertinent Medications Lasix Height 5 ft 6 in Weight 141.7 kg [place] Body Weight (kg) 59.09 BMI 50.4 Intake Prior to Admission Excellent Weight Status Morbidly Obese Subjective/Other Information F/U for intakes and renal education. Pt reports eating 100% of meals and having a good appetite [employer]. Discussed with pt importance of HD and renal appropriate diet. Percent of energy/protein needs met: 100%/100% Burn Absent Trauma Absent #2 Nutrition Diagnosis Food and nutrition-related knowledge deficit Etiology lack of prior renal education As Evidenced by Signs and Symptoms pt reporting not knowing about renal disease Is patient on ventilator? No Is Patient Ambulatory and/or Out of Bed Yes REE-([place]. or-ambulatory/OOB) [ 0555.875 [id number]] Kcal/Kg value to use for calculation 15 Approximate Energy Requirements Using 2126 kcal/Kg Calculation Used for Recommendations Kcal/kg Additional Notes Protein Needs: 71-77g (1.2-1. 3g/kg IBW) Fluid Needs: 1 ml/kcal Nutrition Intervention Change Diet Order: Continue GI soft Teaching Recipient Patient Learning Readiness Fair Teaching Methods Discussion,Handout Response to Teaching Reinforcement needed Education Handouts Provided Importance of HD, Renal diet Barriers to Learning Motivation RD phone number provided Yes Patient aware of follow up options Yes Goal #1 Continue to meet at least 75% of calorie and protein needs via PO intakes Anticipated Discharge Needs: Unable to determine at this time Revisit per MD consult or patient Sign Off request:
--- NOTE | 2018-10-15 17:45 | Progress Note ---
Assessment and Plan Patient alert, awake . On room air.O2 saturation 100%. No acute respiratory distress.Patient has CT guided kidney biopsy . Biopsy results still pending. - Patient Problems (1) Pneumonia involving left lung Current Visit: Yes Status: Acute Plan to address problem: Patient is off the antibiotics. Chest xray reported no acute cardiopulmonary process. Patient afebrile. No leukocytosis. (2) Acute exacerbation of congestive heart failure Current Visit: Yes Status: Acute Plan to address problem: Management as per cardiology. (3) Nephrotic syndrome Current Visit: Yes Status: Acute Plan to address problem: Management as per nephrology. Patient has CT guided Right Kidney biopsy. Subjective Date of service: 10/15/18 Principal diagnosis: IJ DVT Interval history: Patient alert, awake . On room air.O2 saturation 100%. No acute respiratory distress.Patient has CT guided kidney biopsy . Results still pending. Objective Vital Signs - 12hr 10/15/18 10/15/18 10/15/18 12:15 12:16 12:40 Temperature 98.9 F Pulse Rate 68 68 78 Respiratory 20 Rate Blood Pressure 130/76 130/76 148/89 O2 Sat by Pulse 100 Oximetry 10/15/18 16:14 Temperature 98.2 F Pulse Rate 70 Respiratory 20 Rate Blood Pressure 141/87 O2 Sat by Pulse 100 Oximetry Constitutional: no acute distress, alert Eyes: non-icteric ENT: oropharynx moist Neck: supple, no JVD Effort: normal Ascultation: Bilateral: diminished breath sounds Percussion: Bilateral: not dull Cardiovascular: regular rate and rhythm Gastrointestinal: normoactive bowel sounds, soft, non-tender Integumentary: normal Extremities: no cyanosis, no edema Neurologic: non-focal exam, pupils equal and round, CN II-XII normal Psychiatric: depressed CBC and BMP: 10/15/18 10:27 10/15/18 10:27 ABG, PT/INR, D-dimer: ABG POC ABG pH 7.434 (7.35-7.45) 10/05/18 18:03 POC ABG pCO2 43.4 (35-45) 10/05/18 18:03 POC ABG pO2 57 (80-105) L 10/05/18 18:03 POC ABG HCO3 29.0 (22-26 mml/L) 10/05/18 18:03 POC ABG Total CO2 30 (23-27mmol/L) 10/05/18 18:03 POC ABG O2 Sat 90 10/05/18 18:03 PT/INR, D-dimer PT 13.4 Sec. (12.2-14.9) 10/10/18 09:01 INR 0.96 (0.87-1.13) 10/10/18 09:01 Abnormal lab findings: Abnormal Labs 09/17/18 09/17/18 09/17/18 15:17 15:17 15:17 WBC RBC 3.34 L Hgb 9.1 L Hct 27.9 L MCH 27 L RDW 20.5 H Plt Count Lymph % (Auto) [place] % (Auto) 8.8 H [place] # Seg Neuts % (Manual) Lymphocytes % (Manual) Monocytes % (Manual) Nucleated RBC % Lymphocytes # (Manual) Monocytes # (Manual) APTT 22.2 L POC ABG pO2 Potassium Chloride 107.7 H BUN 37 H Creatinine 2.3 H Glucose Calcium 7.4 L Phosphorus Magnesium 2.60 H TIBC ALT Total Creatine Kinase NT-Pro-B Natriuret Pep 992.5 H Serum Total Protein Total Protein 4.1 L Albumin 1.3 L Gamma Globulins PEP Interpretation Folate Urine WBC (Auto) Urine Creatinine Ur Creatinine 24 Hour Ur Total Protein 24 Hr Urine Total Protein Valproic Acid Crossmatch 09/17/18 09/18/18 09/18/18 17:18 05:22 05:22 WBC 4.4 L RBC 3.06 L Hgb 8.5 L Hct 25.5 L MCH RDW 20.0 H Plt Count Lymph % (Auto) 36.5 H Am[place] % (Auto) 12.3 H [place] # Seg Neuts % (Manual) Lymphocytes % (Manual) Monocytes % (Manual) Nucleated RBC % Lymphocytes # (Manual) Monocytes # (Manual) APTT POC ABG pO2 Potassium Chloride 107.2 H BUN 37 H Creatinine 2.2 H Glucose Calcium 7.4 L Phosphorus Magnesium TIBC ALT 6 L Total Creatine Kinase NT-Pro-B Natriuret Pep Serum Total Protein Total Protein 3.9 L Albumin 1.4 L Gamma Globulins PEP Interpretation Folate Urine WBC (Auto) 15.0 H Urine Creatinine Ur Creatinine 24 Hour Ur Total Protein 24 Hr Urine Total Protein Valproic Acid Crossmatch 09/18/18 09/19/18 09/19/18 10:30 05:45 05:45 WBC RBC Hgb Hct MCH RDW Plt Count Lymph % (Auto) [place] % (Auto) [place] # Seg Neuts % (Manual) Lymphocytes % (Manual) Monocytes % (Manual) Nucleated RBC % Lymphocytes # (Manual) Monocytes # (Manual) APTT POC ABG pO2 Potassium Chloride BUN 37 H Creatinine 2.1 H Glucose Calcium 7.3 L Phosphorus Magnesium TIBC ALT Total Creatine Kinase NT-Pro-B Natriuret Pep Serum Total Protein 3.4 L Total Protein Albumin 1.2 L Gamma Globulins 0.5 L PEP Interpretation see below H Folate Urine WBC (Auto) Urine Creatinine 147.5 H Ur Creatinine 24 Hour 0.7 L Ur Total Protein 24 Hr 1073.50 H Urine Total Protein 226 H Valproic Acid Crossmatch 09/20/18 09/20/18 09/21/18 04:56 15:15 06:13 WBC RBC 2.84 L Hgb 7.8 L Hct 24.1 L MCH 27 L RDW 19.8 H Plt Count Lymph % (Auto) [place] % (Auto) 12.9 H [place] # Seg Neuts % (Manual) Lymphocytes % (Manual) Monocytes % (Manual) Nucleated RBC % Lymphocytes # (Manual) Monocytes # (Manual) APTT POC ABG pO2 Potassium 5.4 H 5.5 H Chloride 108.2 H BUN 38 H Creatinine 2.4 H Glucose Calcium 7.2 L Phosphorus Magnesium TIBC ALT Total Creatine Kinase NT-Pro-B Natriuret Pep Serum Total Protein Total Protein Albumin Gamma Globulins PEP Interpretation Folate Urine WBC (Auto) Urine Creatinine Ur Creatinine 24 Hour Ur Total Protein 24 Hr Urine Total Protein Valproic Acid Crossmatch 09/21/18 09/21/18 09/22/18 06:13 07:00 10:12 WBC RBC Hgb Hct MCH RDW Plt Count Lymph % (Auto) [place] % (Auto) [place] # Seg Neuts % (Manual) Lymphocytes % (Manual) Monocytes % (Manual) Nucleated RBC % Lymphocytes # (Manual) Monocytes # (Manual) APTT POC ABG pO2 Potassium 5.2 H Chloride 108.2 H 111.5 H BUN 39 H 40 H Creatinine 2.7 H 3.1 H Glucose Calcium 7.3 L 7.1 L Phosphorus Magnesium TIBC ALT Total Creatine Kinase NT-Pro-B Natriuret Pep Serum Total Protein Total Protein Albumin Gamma Globulins PEP Interpretation Folate Urine WBC (Auto) Urine Creatinine 97.5 H Ur Creatinine 24 Hour Ur Total Protein 24 Hr Urine Total Protein 708 H Valproic Acid Crossmatch 09/23/18 09/25/18 09/25/18 04:40 07:30 07:30 WBC RBC 2.55 L Hgb 6.9 L Hct 21.5 L MCH 27 L RDW 19.5 H Plt Count Lymph % (Auto) [place] % (Auto) 12.2 H [place] # Seg Neuts % (Manual) Lymphocytes % (Manual) Monocytes % (Manual) Nucleated RBC % Lymphocytes # (Manual) Monocytes # (Manual) APTT POC ABG pO2 Potassium Chloride 109.1 H BUN 42 H 33 H Creatinine 3.8 H 4.4 H Glucose 102 H Calcium 7.2 L 7.3 L Phosphorus 5.00 H Magnesium TIBC ALT Total Creatine Kinase NT-Pro-B Natriuret Pep Serum Total Protein Total Protein Albumin Gamma Globulins PEP Interpretation Folate Urine WBC (Auto) Urine Creatinine Ur Creatinine 24 Hour Ur Total Protein 24 Hr Urine Total Protein Valproic Acid Crossmatch 09/26/18 09/26/18 09/26/18 07:17 07:17 07:17 WBC RBC Hgb 6.7 L Hct 20.0 L MCH RDW Plt Count Lymph % (Auto) [place] % (Auto) [place] # Seg Neuts % (Manual) Lymphocytes % (Manual) Monocytes % (Manual) Nucleated RBC % Lymphocytes # (Manual) Monocytes # (Manual) APTT POC ABG pO2 Potassium Chloride BUN 24 H Creatinine 4.1 H Glucose Calcium 7.0 L Phosphorus Magnesium TIBC ALT Total Creatine Kinase 559 H NT-Pro-B Natriuret Pep Serum Total Protein Total Protein Albumin Gamma Globulins PEP Interpretation Folate Urine WBC (Auto) Urine Creatinine Ur Creatinine 24 Hour Ur Total Protein 24 Hr Urine Total Protein Valproic Acid 13.2 L Crossmatch 09/26/18 09/27/18 09/27/18 Unknown 07:42 07:42 WBC RBC 2.16 L Hgb 6.0 L Hct 18.1 L* MCH RDW 18.9 H Plt Count 130 L Lymph % (Auto) [place] % (Auto) 15.8 H [place] # Seg Neuts % (Manual) Lymphocytes % (Manual) Monocytes % (Manual) Nucleated RBC % Lymphocytes # (Manual) Monocytes # (Manual) APTT 36.7 H POC ABG pO2 Potassium Chloride 108.4 H BUN 26 H Creatinine 4.8 H Glucose Calcium 7.1 L Phosphorus 4.60 H Magnesium TIBC ALT Total Creatine Kinase NT-Pro-B Natriuret Pep Serum Total Protein Total Protein Albumin Gamma Globulins PEP Interpretation Folate Urine WBC (Auto) Urine Creatinine Ur Creatinine 24 Hour Ur Total Protein 24 Hr Urine Total Protein Valproic Acid Crossmatch 09/27/18 09/28/18 09/29/18 10:43 04:43 05:07 WBC RBC 3.29 L 3.28 L Hgb 8.9 L 8.9 L Hct 27.2 L D 27.1 L MCH 27 L 27 L RDW 19.3 H 19.3 H Plt Count 130 L 133 L Lymph % (Auto) [place] % (Auto) 15.6 H [place] # 0.9 H Seg Neuts % (Manual) Lymphocytes % (Manual) Monocytes % (Manual) Nucleated RBC % Lymphocytes # (Manual) Monocytes # (Manual) APTT POC ABG pO2 Potassium Chloride BUN Creatinine Glucose Calcium Phosphorus Magnesium TIBC ALT Total Creatine Kinase NT-Pro-B Natriuret Pep Serum Total Protein Total Protein Albumin Gamma Globulins PEP Interpretation Folate Urine WBC (Auto) Urine Creatinine Ur Creatinine 24 Hour Ur Total Protein 24 Hr Urine Total Protein Valproic Acid Crossmatch See Detail 09/29/18 10/01/18 10/01/18 05:07 06:16 06:16 WBC RBC 3.18 L Hgb 8.6 L Hct 26.2 L MCH 27 L RDW 19.3 H Plt Count Lymph % (Auto) [place] % (Auto) [place] # Seg Neuts % (Manual) Lymphocytes % (Manual) Monocytes % (Manual) Nucleated RBC % Lymphocytes # (Manual) Monocytes # (Manual) APTT POC ABG pO2 Potassium Chloride BUN 22 H 22 H Creatinine 5.4 H 6.0 H Glucose Calcium 7.1 L 7.1 L Phosphorus Magnesium TIBC ALT Total Creatine Kinase NT-Pro-B Natriuret Pep Serum Total Protein Total Protein Albumin Gamma Globulins PEP Interpretation Folate Urine WBC (Auto) Urine Creatinine Ur Creatinine 24 Hour Ur Total Protein 24 Hr Urine Total Protein Valproic Acid Crossmatch 10/05/18 10/05/18 10/05/18 06:50 06:50 18:03 WBC RBC 3.08 L Hgb 8.3 L Hct 25.6 L MCH 27 L RDW 19.0 H Plt Count Lymph % (Auto) [place] % (Auto) [place] # Seg Neuts % (Manual) Lymphocytes % (Manual) Monocytes % (Manual) 11.0 H Nucleated RBC % Lymphocytes # (Manual) 0.9 L Monocytes # (Manual) APTT POC ABG pO2 57 L Potassium Chloride BUN Creatinine 4.9 H Glucose Calcium 7.3 L Phosphorus Magnesium TIBC ALT Total Creatine Kinase NT-Pro-B Natriuret Pep Serum Total Protein Total Protein 4.1 L Albumin 1.5 L Gamma Globulins PEP Interpretation Folate Urine WBC (Auto) Urine Creatinine Ur Creatinine 24 Hour Ur Total Protein 24 Hr Urine Total Protein Valproic Acid Crossmatch 10/06/18 10/07/18 10/07/18 06:22 13:11 13:11 WBC RBC 3.04 L 3.36 L Hgb 8.1 L 9.0 L Hct 25.2 L 28.0 L MCH 27 L 27 L RDW 19.2 H 20.0 H Plt Count Lymph % (Auto) [place] % (Auto) [place] # Seg Neuts % (Manual) 71.0 H Lymphocytes % (Manual) 10.0 L Monocytes % (Manual) 14.0 H 18.0 H Nucleated RBC % 2.0 H Lymphocytes # (Manual) 1.0 L 0.7 L Monocytes # (Manual) 1.0 H 1.2 H APTT POC ABG pO2 Potassium Chloride BUN Creatinine 4.9 H Glucose 128 H Calcium 7.4 L Phosphorus Magnesium TIBC ALT Total Creatine Kinase NT-Pro-B Natriuret Pep Serum Total Protein Total Protein Albumin Gamma Globulins PEP Interpretation Folate Urine WBC (Auto) Urine Creatinine Ur Creatinine 24 Hour Ur Total Protein 24 Hr Urine Total Protein Valproic Acid Crossmatch 10/10/18 10/10/18 10/10/18 06:41 06:41 09:01 WBC RBC 2.40 L Hgb 6.6 L Hct 20.4 L D MCH RDW 20.3 H Plt Count 124 L Lymph % (Auto) [place] % (Auto) [place] # Seg Neuts % (Manual) Lymphocytes % (Manual) Monocytes % (Manual) Nucleated RBC % Lymphocytes # (Manual) Monocytes # (Manual) APTT POC ABG pO2 Potassium Chloride BUN 18 H Creatinine 5.6 H Glucose Calcium 6.8 L Phosphorus Magnesium TIBC ALT Total Creatine Kinase NT-Pro-B Natriuret Pep Serum Total Protein Total Protein Albumin Gamma Globulins PEP Interpretation Folate Urine WBC (Auto) Urine Creatinine Ur Creatinine 24 Hour Ur Total Protein 24 Hr Urine Total Protein Valproic Acid Crossmatch See Detail 10/11/18 10/12/18 10/12/18 07:46 09:25 09:25 WBC RBC 2.40 L 3.14 L Hgb 6.6 L 8.8 L Hct 20.8 L 27.5 L D MCH 27 L RDW 21.1 H 20.5 H Plt Count 132 L Lymph % (Auto) [place] % (Auto) [place] # Seg Neuts % (Manual) Lymphocytes % (Manual) Monocytes % (Manual) Nucleated RBC % Lymphocytes # (Manual) Monocytes # (Manual) APTT POC ABG pO2 Potassium Chloride BUN 21 H Creatinine 4.3 H Glucose 141 H Calcium 7.3 L Phosphorus Magnesium TIBC ALT Total Creatine Kinase NT-Pro-B Natriuret Pep Serum Total Protein Total Protein Albumin Gamma Globulins PEP Interpretation Folate Urine WBC (Auto) Urine Creatinine Ur Creatinine 24 Hour Ur Total Protein 24 Hr Urine Total Protein Valproic Acid Crossmatch 10/13/18 10/13/18 10/14/18 07:12 07:12 07:11 WBC RBC 2.55 L 2.58 L Hgb 7.4 L 7.5 L Hct 22.5 L 22.8 L MCH RDW 23.1 H 23.1 H Plt Count 137 L 134 L Lymph % (Auto) [place] % (Auto) [place] # Seg Neuts % (Manual) 76.0 H Lymphocytes % (Manual) Monocytes % (Manual) Nucleated RBC % Lymphocytes # (Manual) 1.1 L Monocytes # (Manual) APTT POC ABG pO2 Potassium Chloride BUN 27 H Creatinine 4.9 H Glucose Calcium 6.9 L Phosphorus 4.90 H Magnesium TIBC ALT Total Creatine Kinase NT-Pro-B Natriuret Pep Serum Total Protein Total Protein Albumin Gamma Globulins PEP Interpretation Folate Urine WBC (Auto) Urine Creatinine Ur Creatinine 24 Hour Ur Total Protein 24 Hr Urine Total Protein Valproic Acid Crossmatch 10/14/18 10/14/18 10/15/18 07:11 07:11 07:36 WBC RBC Hgb Hct MCH RDW Plt Count Lymph % (Auto) [place] % (Auto) [place] # Seg Neuts % (Manual) Lymphocytes % (Manual) Monocytes % (Manual) Nucleated RBC % Lymphocytes # (Manual) Monocytes # (Manual) APTT POC ABG pO2 Potassium Chloride BUN 24 H 33 H Creatinine 4.2 H 4.4 H Glucose Calcium 7.3 L 6.9 L Phosphorus Magnesium TIBC 134 L ALT 6 L Total Creatine Kinase NT-Pro-B Natriuret Pep Serum Total Protein Total Protein 3.8 L Albumin 1.5 L Gamma Globulins PEP Interpretation Folate 3.59 L Urine WBC (Auto) Urine Creatinine Ur Creatinine 24 Hour Ur Total Protein 24 Hr Urine Total Protein Valproic Acid Crossmatch 10/15/18 10/15/18 10:27 10:27 WBC RBC 2.67 L Hgb 7.5 L Hct 23.7 L MCH RDW 24.0 H Plt Count Lymph % (Auto) [place] % (Auto) 15.6 H [place] # 1.3 H Seg Neuts % (Manual) Lymphocytes % (Manual) Monocytes % (Manual) Nucleated RBC % Lymphocytes # (Manual) Monocytes # (Manual) APTT POC ABG pO2 Potassium Chloride 107.1 H BUN 33 H Creatinine 4.4 H Glucose 107 H Calcium 6.8 L Phosphorus Magnesium TIBC ALT Total Creatine Kinase NT-Pro-B Natriuret Pep Serum Total Protein Total Protein Albumin Gamma Globulins PEP Interpretation Folate Urine WBC (Auto) Urine Creatinine Ur Creatinine 24 Hour Ur Total Protein 24 Hr Urine Total Protein Valproic Acid Crossmatch Allied health notes reviewed: nursing
[2018-10-15] MEDS: HALDOL PO SCH (23:02)
[2018-10-15] MEDS: BENADRYL PO SCH (23:02)
[2018-10-16] MEDS: LASIX PO SCH ×2 (06:52→18:27)
[2018-10-16] MEDS: HEPARIN SUB-Q SCH ×3 (06:52→22:55)
--- NOTE | 2018-10-16 07:00 | Progress Note ---
Assessment and Plan 1. Acute kidney injury: LUCILA secondary to blocked tubules from Proteinuria. Patient was started on hemodialysis on 09/24/2018 due to worsening renal function, anasarca and suspected pulmonary edema. Last dialyzed on 10/12/18. Creatinine level plateaued. Monitor renal function. Renal prognosis guarded. Hold ARB for now. 2. Nephrotic syndrome: Kidney bx showed Tip variant FSGS. Continue Prednisone. Monitor renal function. On Heparin to prevent DVT. Continue Statin. 3. FEN: Volume overload, on Lasix. Hyperkalemia, improved. 4. VRE bacteriuria. 5. HTN: Monitor BP. 6. Anemia: GI bleed. S/p PRBC. Epogen with HD. 7. Schizophrenia. 8. Medical non-compliance. Await placement. Subjective Date of service: 10/16/18 Principal diagnosis: IJ DVT Interval history: Patient was seen and examined at the bedside. Doing ok. Objective - Vital Signs Vital signs: Vital Signs - 12hr 10/15/18 10/15/18 22:34 23:02 Temperature 98.1 F Pulse Rate 71 71 Respiratory 18 Rate Blood Pressure 111/54 111/54 O2 Sat by Pulse 96 Oximetry - General Appearance General appearance: well-developed, well-nourished, appears stated age, other (not in distress, right IJ tunnel catheter) EENT: ATNC, PERRL Neck: supple Respiratory: Present: Clear to Ascultation Cardiology: regular, S1S2, no murmurs Gastrointestinal: normoactive bowel sounds, no tenderness, no distended Integumentary: no rash, warm and dry Neurologic: no focal deficit, no asterixis, alert and oriented x3 Musculoskeletal: other (2+ edema of both LEs noted) - Lab 10/16/18 13:24 10/16/18 10:21 Most recent lab results Calcium 6.8 mg/dL (8.4-10.2) L 10/15/18 10:27 Phosphorus 4.30 mg/dL (2.5-4.5) 10/14/18 07:11 Magnesium 1.70 mg/dL (1.7-2.3) 10/14/18 07:11 Urine Creatinine 97.5 mg/dL (0.1-20.0) H 09/21/18 07:00 Ur Total Protein 24 Hr 1073.50 mg/dL (2-200) H 09/18/18 10:30 Urine Sodium 53 mmol/L 09/21/18 07:00 Urine Total Protein 708 mg/dL (5-11.8) H 09/21/18 07:00 Medications & Allergies - Medications Allergies/Adverse Reactions: Allergies No Known Allergies Allergy (Unverified 09/17/18 15:05) Home Medications: Home Medications Medication Instructions Recorded Confirmed Last Taken Type Divalproex Sodium [Depakote] 500 mg PO BID 09/17/18 09/17/18 Unknown History Haldol (Nf) 10 mg PO QHS 09/17/18 10/06/18 Unknown History Invega Sustenna 156 mg IM QMONTH 09/17/18 10/06/18 Unknown History diphenhydrAMINE [Benadryl CAP] 50 mg PO HS 09/17/18 09/17/18 Unknown History Active Medications: Generic Name Dose Route Start Last Admin Trade Name Freq PRN Reason Stop Dose Admin Acetaminophen 650 mg 09/18/18 02:40 09/27/18 05:36 Tylenol PO 650 mg Q4H PRN Administration Pain MILD(1-3)/Fever >100.5/MENDOZA Atorvastatin Calcium 40 mg 09/18/18 22:00 10/15/18 23:02 Lipitor PO 40 mg QHS LUZ Administration Diphenhydramine HCl 50 mg 09/18/18 22:00 10/15/18 23:02 Benadryl PO 50 mg HS LUZ Administration Divalproex Sodium 500 mg 09/18/18 10:00 10/15/18 23:[address] PO 500 mg BID LUZ Administration Epoetin Luis 20,000 unit 09/26/18 12:23 10/11/18 19:01 Procrit SUB-Q 20,000 unit KUSHAL PRN Administration hemodialysis Furosemide 80 mg 09/29/18 06:00 10/16/18 06:52 Lasix PO 80 mg 0600,1800 LUZ Administration Haloperidol 5 mg 09/25/18 22:00 10/15/18 23:02 Haldol PO 5 mg HS LUZ Administration Heparin Sodium (Porcine) 2,000 unit 10/13/18 13:08 Heparin 10,000 Units/10 Ml IV KUSHAL PRN hemodialysis Heparin Sodium (Porcine) 5,000 unit 10/13/18 13:08 Heparin IV KUSHAL PRN hemodialysis Heparin Sodium (Porcine) 5,000 unit 10/13/18 14:00 10/16/18 06:52 Heparin SUB-Q 5,000 unit Q8HR LUZ Administration Hydralazine HCl 10 mg 09/22/18 06:28 09/22/18 12:12 Apresoline IV 10 mg Q4H PRN Administration systolic b/p >165 Hydromorphone HCl 0.5 mg 09/18/18 02:40 Dilaudid IV Q3H PRN Pain , Severe (7-10) Sodium Chloride 100 mls @ 999 mls/hr 10/13/18 13:08 Nacl 0.9% IV KUSHAL PRN Hypotension Metoprolol Tartrate 50 mg 10/07/18 13:00 10/15/18 23:02 Lopressor PO 50 mg BID LUZ Administration Ondansetron HCl 4 mg 09/18/18 02:40 10/07/18 03:15 Zofran IV 4 mg Q8H PRN Administration Nausea And Vomiting Oxycodone/Acetaminophen 1 tab 09/18/18 02:40 10/09/18 22:03 Percocet 5/325 PO 1 tab Q6H PRN Administration Pain, Moderate (4-6) Pantoprazole Sodium 40 mg 10/02/18 10:00 10/15/18 12:16 Protonix PO 40 mg DAILY LUZ Administration Prednisone 80 mg 10/12/18 10:00 10/15/18 12:15 Deltasone PO 80 mg QDAY LUZ Administration Sodium Chloride 10 ml 09/18/18 10:00 10/15/18 23:02 Sodium Chloride Flush Syringe 10 Ml IV 10 ml BID LUZ Administration Sodium Chloride 10 ml 09/18/18 02:40 10/11/18 22:43 Sodium Chloride Flush Syringe 10 Ml IV 10 ml PRN PRN Administration LINE FLUSH
--- NOTE | 2018-10-16 08:00 | Hem/Onc Progress Note ---
Assessment and Plan 1. History based on the notes of neck deep vein thrombosis. Nephrotic syndrome may have a role in her deep vein thrombosis. The management of this will become challenging. The patient had Radha-Mendez tear, anticoagulation is needed. However, due to recent bleed, we would be forced to avoid the same. 2. Nephrotic syndrome and proteinuria most likely has a role in her DVT formation. 3. Anemia with history of gastrointestinal bleed, status post transfusion. We will investigate and follow. 4. Mild thrombocytopenia. 5. Renal impairment. 6. Nephrotic syndrome, on steroids. 7. On Depakote. 8. On medications for hypertension and medications for hyperlipidemia. 9. Vancomycin-resistant enterococcal bacteriuria. 10. History of schizophrenia. 11. History of breast lump. This would need outpatient followup. 12. History of hemodialysis. 13. History of esophagogastroduodenoscopy. 14. History of hematemesis. I will follow the patient during inpatient stay and then in the clinic setting. 10/15 - d/w dr gilliam on 10/13 neck doppler not available - vascular team found the clot - when theny were doing the HD cath 10/16 no bleeding pt had GI bleed - needing prbc not on anticoag for the neck DVT h/o renal bx - Patient Problems (1) Deep vein thrombosis Current Visit: Yes Status: Acute Subjective Date of service: 10/16/18 Objective - Constitutional Vitals: Last Vital Signs Temp 98.4 F 10/16/18 06:48 Pulse 70 10/16/18 06:48 Resp 18 10/15/18 22:34 BP 124/76 10/16/18 06:48 Pulse Ox 99 10/16/18 06:48 Pain Intensity (0-10): denies any pain General appearance: no acute distress Performance status: 3-limited selfcare - EENT Eyes: EOM intact ENT: clear oral mucosa Lymph node exam: bilateral cervical - Neck Neck: normal ROM - Respiratory Respiratory effort: Positive: normal Respiratory: bilateral: CTA - Cardiovascular Heart Sounds: Present: S1 & S2 Extremity abnormal: edema - Gastrointestinal General gastrointestinal: Present: soft Rectal Exam: deferred - Genitourinary Female genitourinary: Present: deferred - Integumentary Integumentary: warm - Musculoskeletal Musculoskeletal: generalized weakness - Neurologic Neurologic: moves all extremities - Labs Lab Results: Laboratory Results - last 24 hr 10/15/18 10/15/18 10/15/18 07:36 10:27 10:27 WBC 8.5 RBC 2.67 L Hgb 7.5 L Hct 23.7 L MCV 89 MCH 28 MCHC 32 RDW 24.0 H Plt Count 154 Lymph % (Auto) 16.5 [place] % (Auto) 15.6 H Eos % (Auto) 0.1 Baso % (Auto) 0.6 Lymph # 1.4 [place] # 1.3 H Eos # 0.0 Baso # 0.0 Seg Neutrophils % 67.2 Seg Neutrophils # 5.7 Sodium 142 143 Potassium 4.9 4.6 Chloride 107.0 107.1 H Carbon Dioxide 29 29 Anion Gap 11 12 BUN 33 H 33 H Creatinine 4.4 H 4.4 H Estimated GFR 13 13 BUN/Creatinine Ratio 8 8 Glucose 91 107 H Calcium 6.9 L 6.8 L Medications & Allergies - Medications Allergies/Adverse Reactions: Allergies No Known Allergies Allergy (Unverified 09/17/18 15:05) Home Medications: Home Medications Medication Instructions Recorded Confirmed Last Taken Type AtorvaSTATin [Lipitor] 40 mg PO QHS #30 tablet 10/17/18 Unknown Rx Divalproex Sodium [Depakote] 500 mg PO BID #60 tablet.dr 10/17/18 Unknown Rx Furosemide [Lasix TAB] 80 mg PO 0600,1800 #60 tablet 10/17/18 Unknown Rx Haloperidol [Haldol] 5 mg PO HS #30 tablet 10/17/18 Unknown Rx Metoprolol [Lopressor TAB] 50 mg PO BID #60 tablet 10/17/18 Unknown Rx Pantoprazole [Protonix TAB] 40 mg PO DAILY #30 tablet 10/17/18 Unknown Rx diphenhydrAMINE [Benadryl CAP] 50 mg PO HS #30 capsule 10/17/18 Unknown Rx predniSONE [Deltasone] 80 mg PO QDAY #120 tablet 10/17/18 Unknown Rx Active Medications: Generic Name Dose Route Start Last Admin Trade Name Freq PRN Reason Stop Dose Admin Acetaminophen 650 mg 09/18/18 02:40 09/27/18 05:36 Tylenol PO 650 mg Q4H PRN Administration Pain MILD(1-3)/Fever >100.5/MENDOZA Atorvastatin Calcium 40 mg 09/18/18 22:00 10/15/18 23:02 Lipitor PO 40 mg QHS LUZ Administration Diphenhydramine HCl 50 mg 09/18/18 22:00 10/15/18 23:02 Benadryl PO 50 mg HS LUZ Administration Divalproex Sodium 500 mg 09/18/18 10:00 10/15/18 23:[address] PO 500 mg BID LUZ Administration Epoetin Luis 20,000 unit 09/26/18 12:23 10/11/18 19:01 Procrit SUB-Q 20,000 unit KUSHAL PRN Administration hemodialysis Furosemide 80 mg 09/29/18 06:00 10/16/18 06:52 Lasix PO 80 mg 0600,1800 LUZ Administration Haloperidol 5 mg 09/25/18 22:00 10/15/18 23:02 Haldol PO 5 mg HS LUZ Administration Heparin Sodium (Porcine) 2,000 unit 10/13/18 13:08 Heparin 10,000 Units/10 Ml IV KUSHAL PRN hemodialysis Heparin Sodium (Porcine) 5,000 unit 10/13/18 13:08 Heparin IV KUSHAL PRN hemodialysis Heparin Sodium (Porcine) 5,000 unit 10/13/18 14:00 10/16/18 06:52 Heparin SUB-Q 5,000 unit Q8HR LUZ Administration Hydralazine HCl 10 mg 09/22/18 06:28 09/22/18 12:12 Apresoline IV 10 mg Q4H PRN Administration systolic b/p >165 Hydromorphone HCl 0.5 mg 09/18/18 02:40 Dilaudid IV Q3H PRN Pain , Severe (7-10) Sodium Chloride 100 mls @ 999 mls/hr 10/13/18 13:08 Nacl 0.9% IV UKSHAL PRN Hypotension Metoprolol Tartrate 50 mg 10/07/18 13:00 10/15/18 23:02 Lopressor PO 50 mg BID LUZ Administration Ondansetron HCl 4 mg 09/18/18 02:40 10/07/18 03:15 Zofran IV 4 mg Q8H PRN Administration Nausea And Vomiting Oxycodone/Acetaminophen 1 tab 09/18/18 02:40 10/09/18 22:03 Percocet 5/325 PO 1 tab Q6H PRN Administration Pain, Moderate (4-6) Pantoprazole Sodium 40 mg 10/02/18 10:00 10/15/18 12:16 Protonix PO 40 mg DAILY LUZ Administration Prednisone 80 mg 10/12/18 10:00 10/15/18 12:15 Deltasone PO 80 mg QDAY LUZ Administration Sodium Chloride 10 ml 09/18/18 10:00 10/15/18 23:02 Sodium Chloride Flush Syringe 10 Ml IV 10 ml BID LUZ Administration Sodium Chloride 10 ml 09/18/18 02:40 10/11/18 22:43 Sodium Chloride Flush Syringe 10 Ml IV 10 ml PRN PRN Administration LINE FLUSH
[2018-10-16] MEDS: PROTONIX PO SCH (13:58)
[2018-10-16] MEDS: DELTASONE PO SCH (13:58)
--- NOTE | 2018-10-16 13:58 | Progress Note ---
Assessment and Plan Patient alert, awake . On room air.O2 saturation 100%. No acute respiratory distress.Patient has CT guided kidney biopsy . Biopsy results still pending. - Patient Problems (1) Pneumonia involving left lung Current Visit: Yes Status: Acute Plan to address problem: Patient is off the antibiotics. Chest xray reported no acute cardiopulmonary process. Patient afebrile. No leukocytosis. (2) Acute exacerbation of congestive heart failure Current Visit: Yes Status: Acute Plan to address problem: Management as per cardiology. (3) Nephrotic syndrome Current Visit: Yes Status: Acute Plan to address problem: Management as per nephrology. Patient has CT guided Right Kidney biopsy. Subjective Date of service: 10/16/18 Principal diagnosis: IJ DVT Interval history: Patient alert, awake . On room air.O2 saturation 99%. No acute respiratory distress.Patient has CT guided kidney biopsy . Results still pending. Objective Vital Signs - 12hr 10/16/18 10/16/18 06:48 11:42 Temperature 98.4 F 97.9 F Pulse Rate 70 70 Respiratory 20 Rate Blood Pressure 124/76 119/68 O2 Sat by Pulse 99 99 Oximetry Constitutional: no acute distress, alert Eyes: non-icteric ENT: oropharynx moist Neck: supple, no JVD Effort: normal Ascultation: Bilateral: diminished breath sounds Percussion: Bilateral: not dull Cardiovascular: regular rate and rhythm Gastrointestinal: normoactive bowel sounds, soft, non-tender Integumentary: normal Extremities: no cyanosis, no edema Neurologic: non-focal exam, pupils equal and round, CN II-XII normal Psychiatric: depressed CBC and BMP: 10/16/18 13:24 10/16/18 10:21 ABG, PT/INR, D-dimer: ABG POC ABG pH 7.434 (7.35-7.45) 10/05/18 18:03 POC ABG pCO2 43.4 (35-45) 10/05/18 18:03 POC ABG pO2 57 (80-105) L 10/05/18 18:03 POC ABG HCO3 29.0 (22-26 mml/L) 10/05/18 18:03 POC ABG Total CO2 30 (23-27mmol/L) 10/05/18 18:03 POC ABG O2 Sat 90 10/05/18 18:03 PT/INR, D-dimer PT 13.4 Sec. (12.2-14.9) 10/10/18 09:01 INR 0.96 (0.87-1.13) 10/10/18 09:01 Abnormal lab findings: Abnormal Labs 09/17/18 09/17/18 09/17/18 15:17 15:17 15:17 WBC RBC 3.34 L Hgb 9.1 L Hct 27.9 L MCH 27 L RDW 20.5 H Plt Count Lymph % (Auto) [place] % (Auto) 8.8 H [place] # Seg Neuts % (Manual) Lymphocytes % (Manual) Monocytes % (Manual) Nucleated RBC % Lymphocytes # (Manual) Monocytes # (Manual) APTT 22.2 L POC ABG pO2 Potassium Chloride 107.7 H BUN 37 H Creatinine 2.3 H Glucose Calcium 7.4 L Phosphorus Magnesium 2.60 H TIBC ALT Total Creatine Kinase NT-Pro-B Natriuret Pep 992.5 H Serum Total Protein Total Protein 4.1 L Albumin 1.3 L Gamma Globulins PEP Interpretation Folate Urine WBC (Auto) Urine Creatinine Ur Creatinine 24 Hour Ur Total Protein 24 Hr Urine Total Protein Valproic Acid Crossmatch 09/17/18 09/18/18 09/18/18 17:18 05:22 05:22 WBC 4.4 L RBC 3.06 L Hgb 8.5 L Hct 25.5 L MCH RDW 20.0 H Plt Count Lymph % (Auto) 36.5 H [place] % (Auto) 12.3 H [place] # Seg Neuts % (Manual) Lymphocytes % (Manual) Monocytes % (Manual) Nucleated RBC % Lymphocytes # (Manual) Monocytes # (Manual) APTT POC ABG pO2 Potassium Chloride 107.2 H BUN 37 H Creatinine 2.2 H Glucose Calcium 7.4 L Phosphorus Magnesium TIBC ALT 6 L Total Creatine Kinase NT-Pro-B Natriuret Pep Serum Total Protein Total Protein 3.9 L Albumin 1.4 L Gamma Globulins PEP Interpretation Folate Urine WBC (Auto) 15.0 H Urine Creatinine Ur Creatinine 24 Hour Ur Total Protein 24 Hr Urine Total Protein Valproic Acid Crossmatch 09/18/18 09/19/18 09/19/18 10:30 05:45 05:45 WBC RBC Hgb Hct MCH RDW Plt Count Lymph % (Auto) [place] % (Auto) [place] # Seg Neuts % (Manual) Lymphocytes % (Manual) Monocytes % (Manual) Nucleated RBC % Lymphocytes # (Manual) Monocytes # (Manual) APTT POC ABG pO2 Potassium Chloride BUN 37 H Creatinine 2.1 H Glucose Calcium 7.3 L Phosphorus Magnesium TIBC ALT Total Creatine Kinase NT-Pro-B Natriuret Pep Serum Total Protein 3.4 L Total Protein Albumin 1.2 L Gamma Globulins 0.5 L PEP Interpretation see below H Folate Urine WBC (Auto) Urine Creatinine 147.5 H Ur Creatinine 24 Hour 0.7 L Ur Total Protein 24 Hr 1073.50 H Urine Total Protein 226 H Valproic Acid Crossmatch 09/20/18 09/20/18 09/21/18 04:56 15:15 06:13 WBC RBC 2.84 L Hgb 7.8 L Hct 24.1 L MCH 27 L RDW 19.8 H Plt Count Lymph % (Auto) [place] % (Auto) 12.9 H [place] # Seg Neuts % (Manual) Lymphocytes % (Manual) Monocytes % (Manual) Nucleated RBC % Lymphocytes # (Manual) Monocytes # (Manual) APTT POC ABG pO2 Potassium 5.4 H 5.5 H Chloride 108.2 H BUN 38 H Creatinine 2.4 H Glucose Calcium 7.2 L Phosphorus Magnesium TIBC ALT Total Creatine Kinase NT-Pro-B Natriuret Pep Serum Total Protein Total Protein Albumin Gamma Globulins PEP Interpretation Folate Urine WBC (Auto) Urine Creatinine Ur Creatinine 24 Hour Ur Total Protein 24 Hr Urine Total Protein Valproic Acid Crossmatch 09/21/18 09/21/18 09/22/18 06:13 07:00 10:12 WBC RBC Hgb Hct MCH RDW Plt Count Lymph % (Auto) [place] % (Auto) [place] # Seg Neuts % (Manual) Lymphocytes % (Manual) Monocytes % (Manual) Nucleated RBC % Lymphocytes # (Manual) Monocytes # (Manual) APTT POC ABG pO2 Potassium 5.2 H Chloride 108.2 H 111.5 H BUN 39 H 40 H Creatinine 2.7 H 3.1 H Glucose Calcium 7.3 L 7.1 L Phosphorus Magnesium TIBC ALT Total Creatine Kinase NT-Pro-B Natriuret Pep Serum Total Protein Total Protein Albumin Gamma Globulins PEP Interpretation Folate Urine WBC (Auto) Urine Creatinine 97.5 H Ur Creatinine 24 Hour Ur Total Protein 24 Hr Urine Total Protein 708 H Valproic Acid Crossmatch 09/23/18 09/25/18 09/25/18 04:40 07:30 07:30 WBC RBC 2.55 L Hgb 6.9 L Hct 21.5 L MCH 27 L RDW 19.5 H Plt Count Lymph % (Auto) [place] % (Auto) 12.2 H [place] # Seg Neuts % (Manual) Lymphocytes % (Manual) Monocytes % (Manual) Nucleated RBC % Lymphocytes # (Manual) Monocytes # (Manual) APTT POC ABG pO2 Potassium Chloride 109.1 H BUN 42 H 33 H Creatinine 3.8 H 4.4 H Glucose 102 H Calcium 7.2 L 7.3 L Phosphorus 5.00 H Magnesium TIBC ALT Total Creatine Kinase NT-Pro-B Natriuret Pep Serum Total Protein Total Protein Albumin Gamma Globulins PEP Interpretation Folate Urine WBC (Auto) Urine Creatinine Ur Creatinine 24 Hour Ur Total Protein 24 Hr Urine Total Protein Valproic Acid Crossmatch 09/26/18 09/26/18 09/26/18 07:17 07:17 07:17 WBC RBC Hgb 6.7 L Hct 20.0 L MCH RDW Plt Count Lymph % (Auto) [place] % (Auto) [place] # Seg Neuts % (Manual) Lymphocytes % (Manual) Monocytes % (Manual) Nucleated RBC % Lymphocytes # (Manual) Monocytes # (Manual) APTT POC ABG pO2 Potassium Chloride BUN 24 H Creatinine 4.1 H Glucose Calcium 7.0 L Phosphorus Magnesium TIBC ALT Total Creatine Kinase 559 H NT-Pro-B Natriuret Pep Serum Total Protein Total Protein Albumin Gamma Globulins PEP Interpretation Folate Urine WBC (Auto) Urine Creatinine Ur Creatinine 24 Hour Ur Total Protein 24 Hr Urine Total Protein Valproic Acid 13.2 L Crossmatch 09/26/18 09/27/18 09/27/18 Unknown 07:42 07:42 WBC RBC 2.16 L Hgb 6.0 L Hct 18.1 L* MCH RDW 18.9 H Plt Count 130 L Lymph % (Auto) [place] % (Auto) 15.8 H [place] # Seg Neuts % (Manual) Lymphocytes % (Manual) Monocytes % (Manual) Nucleated RBC % Lymphocytes # (Manual) Monocytes # (Manual) APTT 36.7 H POC ABG pO2 Potassium Chloride 108.4 H BUN 26 H Creatinine 4.8 H Glucose Calcium 7.1 L Phosphorus 4.60 H Magnesium TIBC ALT Total Creatine Kinase NT-Pro-B Natriuret Pep Serum Total Protein Total Protein Albumin Gamma Globulins PEP Interpretation Folate Urine WBC (Auto) Urine Creatinine Ur Creatinine 24 Hour Ur Total Protein 24 Hr Urine Total Protein Valproic Acid Crossmatch 09/27/18 09/28/18 09/29/18 10:43 04:43 05:07 WBC RBC 3.29 L 3.28 L Hgb 8.9 L 8.9 L Hct 27.2 L D 27.1 L MCH 27 L 27 L RDW 19.3 H 19.3 H Plt Count 130 L 133 L Lymph % (Auto) [place] % (Auto) 15.6 H [place] # 0.9 H Seg Neuts % (Manual) Lymphocytes % (Manual) Monocytes % (Manual) Nucleated RBC % Lymphocytes # (Manual) Monocytes # (Manual) APTT POC ABG pO2 Potassium Chloride BUN Creatinine Glucose Calcium Phosphorus Magnesium TIBC ALT Total Creatine Kinase NT-Pro-B Natriuret Pep Serum Total Protein Total Protein Albumin Gamma Globulins PEP Interpretation Folate Urine WBC (Auto) Urine Creatinine Ur Creatinine 24 Hour Ur Total Protein 24 Hr Urine Total Protein Valproic Acid Crossmatch See Detail 09/29/18 10/01/18 10/01/18 05:07 06:16 06:16 WBC RBC 3.18 L Hgb 8.6 L Hct 26.2 L MCH 27 L RDW 19.3 H Plt Count Lymph % (Auto) [place] % (Auto) [place] # Seg Neuts % (Manual) Lymphocytes % (Manual) Monocytes % (Manual) Nucleated RBC % Lymphocytes # (Manual) Monocytes # (Manual) APTT POC ABG pO2 Potassium Chloride BUN 22 H 22 H Creatinine 5.4 H 6.0 H Glucose Calcium 7.1 L 7.1 L Phosphorus Magnesium TIBC ALT Total Creatine Kinase NT-Pro-B Natriuret Pep Serum Total Protein Total Protein Albumin Gamma Globulins PEP Interpretation Folate Urine WBC (Auto) Urine Creatinine Ur Creatinine 24 Hour Ur Total Protein 24 Hr Urine Total Protein Valproic Acid Crossmatch 10/05/18 10/05/18 10/05/18 06:50 06:50 18:03 WBC RBC 3.08 L Hgb 8.3 L Hct 25.6 L MCH 27 L RDW 19.0 H Plt Count Lymph % (Auto) [place] % (Auto) [place] # Seg Neuts % (Manual) Lymphocytes % (Manual) Monocytes % (Manual) 11.0 H Nucleated RBC % Lymphocytes # (Manual) 0.9 L Monocytes # (Manual) APTT POC ABG pO2 57 L Potassium Chloride BUN Creatinine 4.9 H Glucose Calcium 7.3 L Phosphorus Magnesium TIBC ALT Total Creatine Kinase NT-Pro-B Natriuret Pep Serum Total Protein Total Protein 4.1 L Albumin 1.5 L Gamma Globulins PEP Interpretation Folate Urine WBC (Auto) Urine Creatinine Ur Creatinine 24 Hour Ur Total Protein 24 Hr Urine Total Protein Valproic Acid Crossmatch 10/06/18 10/07/18 10/07/18 06:22 13:11 13:11 WBC RBC 3.04 L 3.36 L Hgb 8.1 L 9.0 L Hct 25.2 L 28.0 L MCH 27 L 27 L RDW 19.2 H 20.0 H Plt Count Lymph % (Auto) [place] % (Auto) [place] # Seg Neuts % (Manual) 71.0 H Lymphocytes % (Manual) 10.0 L Monocytes % (Manual) 14.0 H 18.0 H Nucleated RBC % 2.0 H Lymphocytes # (Manual) 1.0 L 0.7 L Monocytes # (Manual) 1.0 H 1.2 H APTT POC ABG pO2 Potassium Chloride BUN Creatinine 4.9 H Glucose 128 H Calcium 7.4 L Phosphorus Magnesium TIBC ALT Total Creatine Kinase NT-Pro-B Natriuret Pep Serum Total Protein Total Protein Albumin Gamma Globulins PEP Interpretation Folate Urine WBC (Auto) Urine Creatinine Ur Creatinine 24 Hour Ur Total Protein 24 Hr Urine Total Protein Valproic Acid Crossmatch 10/10/18 10/10/18 10/10/18 06:41 06:41 09:01 WBC RBC 2.40 L Hgb 6.6 L Hct 20.4 L D MCH RDW 20.3 H Plt Count 124 L Lymph % (Auto) [place] % (Auto) [place] # Seg Neuts % (Manual) Lymphocytes % (Manual) Monocytes % (Manual) Nucleated RBC % Lymphocytes # (Manual) Monocytes # (Manual) APTT POC ABG pO2 Potassium Chloride BUN 18 H Creatinine 5.6 H Glucose Calcium 6.8 L Phosphorus Magnesium TIBC ALT Total Creatine Kinase NT-Pro-B Natriuret Pep Serum Total Protein Total Protein Albumin Gamma Globulins PEP Interpretation Folate Urine WBC (Auto) Urine Creatinine Ur Creatinine 24 Hour Ur Total Protein 24 Hr Urine Total Protein Valproic Acid Crossmatch See Detail 10/11/18 10/12/18 10/12/18 07:46 09:25 09:25 WBC RBC 2.40 L 3.14 L Hgb 6.6 L 8.8 L Hct 20.8 L 27.5 L D MCH 27 L RDW 21.1 H 20.5 H Plt Count 132 L Lymph % (Auto) [place] % (Auto) [place] # Seg Neuts % (Manual) Lymphocytes % (Manual) Monocytes % (Manual) Nucleated RBC % Lymphocytes # (Manual) Monocytes # (Manual) APTT POC ABG pO2 Potassium Chloride BUN 21 H Creatinine 4.3 H Glucose 141 H Calcium 7.3 L Phosphorus Magnesium TIBC ALT Total Creatine Kinase NT-Pro-B Natriuret Pep Serum Total Protein Total Protein Albumin Gamma Globulins PEP Interpretation Folate Urine WBC (Auto) Urine Creatinine Ur Creatinine 24 Hour Ur Total Protein 24 Hr Urine Total Protein Valproic Acid Crossmatch 10/13/18 10/13/18 10/14/18 07:12 07:12 07:11 WBC RBC 2.55 L 2.58 L Hgb 7.4 L 7.5 L Hct 22.5 L 22.8 L MCH RDW 23.1 H 23.1 H Plt Count 137 L 134 L Lymph % (Auto) [place] % (Auto) [place] # Seg Neuts % (Manual) 76.0 H Lymphocytes % (Manual) Monocytes % (Manual) Nucleated RBC % Lymphocytes # (Manual) 1.1 L Monocytes # (Manual) APTT POC ABG pO2 Potassium Chloride BUN 27 H Creatinine 4.9 H Glucose Calcium 6.9 L Phosphorus 4.90 H Magnesium TIBC ALT Total Creatine Kinase NT-Pro-B Natriuret Pep Serum Total Protein Total Protein Albumin Gamma Globulins PEP Interpretation Folate Urine WBC (Auto) Urine Creatinine Ur Creatinine 24 Hour Ur Total Protein 24 Hr Urine Total Protein Valproic Acid Crossmatch 10/14/18 10/14/18 10/15/18 07:11 07:11 07:36 WBC RBC Hgb Hct MCH RDW Plt Count Lymph % (Auto) [place] % (Auto) [place] # Seg Neuts % (Manual) Lymphocytes % (Manual) Monocytes % (Manual) Nucleated RBC % Lymphocytes # (Manual) Monocytes # (Manual) APTT POC ABG pO2 Potassium Chloride BUN 24 H 33 H Creatinine 4.2 H 4.4 H Glucose Calcium 7.3 L 6.9 L Phosphorus Magnesium TIBC 134 L ALT 6 L Total Creatine Kinase NT-Pro-B Natriuret Pep Serum Total Protein Total Protein 3.8 L Albumin 1.5 L Gamma Globulins PEP Interpretation Folate 3.59 L Urine WBC (Auto) Urine Creatinine Ur Creatinine 24 Hour Ur Total Protein 24 Hr Urine Total Protein Valproic Acid Crossmatch 10/15/18 10/15/18 10/16/18 10:27 10:27 10:21 WBC RBC 2.67 L Hgb 7.5 L Hct 23.7 L MCH RDW 24.0 H Plt Count Lymph % (Auto) [place] % (Auto) 15.6 H [place] # 1.3 H Seg Neuts % (Manual) Lymphocytes % (Manual) Monocytes % (Manual) Nucleated RBC % Lymphocytes # (Manual) Monocytes # (Manual) APTT POC ABG pO2 Potassium Chloride 107.1 H BUN 33 H 39 H Creatinine 4.4 H 4.2 H Glucose 107 H 115 H Calcium 6.8 L 7.0 L Phosphorus 4.90 H Magnesium TIBC ALT Total Creatine Kinase NT-Pro-B Natriuret Pep Serum Total Protein Total Protein Albumin Gamma Globulins PEP Interpretation Folate Urine WBC (Auto) Urine Creatinine Ur Creatinine 24 Hour Ur Total Protein 24 Hr Urine Total Protein Valproic Acid Crossmatch Allied health notes reviewed: nursing
[2018-10-16] MEDS: LOPRESSOR PO SCH ×2 (13:59→22:56)
[2018-10-16] MEDS: SODIUM CHLORIDE FLUSH SYRINGE 10 ML IV SCH ×2 (13:59→22:55)
[2018-10-16 14:02] LABS: Hematocrit 27.7 % (30.3-42.9); Hemoglobin 8.7 gm/dl (10.1-14.3)
--- NOTE | 2018-10-16 16:02 | Progress Note ---
Assessment and Plan /Acute renal failure due to Nephrotic syndrome/FSGS. Patient was started on hemodialysis on 09/24/2018 due to worsening renal function, anasarca and suspected pulmonary edema. 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 /Coffee-ground emesis with Radha Mendez Tear. GI consulted H&H dropped, s/p EGD showed MW tear, s/p PRBC transfusion. /Acute on chronic Blood loss anemia due to MW tear- s/p 4 units PRBC transfusion /Right lower extremity thigh pain. Resolved, Doppler lower extremities bilatera lly negative for DVT /Left breast swelling, unknown at present. Need outpatient Mammogram and U/S /Morbid obesity, bmi 55.2: lifestyle modification /Medical noncompliance. Patient intermittently at times refusing care. Per psych she has decision making capacity. /Schizophrenia, Bipolar disorder. Continue current medications.. Psych consulted /Hyperkalemia. s/p Kayexalate. Resolved /Presumed Sepsis. Left lower lobe pneumonia ? . Present on admission. treated with Iv abx /UTI? with VRE: ID was following, ordered isolation, treated with amoxicillin for 3 days, likely colonization /DVT OF internal jugular vein- discussed with vascular surgeon considering patient's history of GI bleed, Radha-Mendez tear, recurrent anemia required transfusion patient appears not to be a candidate at this time for anticoagulation. per Heme/onc most likely related to nephrotic syndrome, and would not a/c due to recent gi bleed. D/w Dr. Nguyen /DVT prophylaxis: patient is refusing injections Disposition: continue inpatient care, needs new placement. Brief History Patient is a 47 yo woman with a history of Obesity, HTN and Schizophrenia who presented to the ER with bilateral leg swelling, SOB and increase in the abdominal girth and weight gain of ~86 pounds in 10 weeks. Labs were significant for creatinine of 2.2, Hb 8.5, albumin 1.4 and 3+ protein in the urine. Patient was admitted with provisional diagnosis of Nephrotic syndrome. Nephrology was consulted for further evaluation, started on HD and recommended Kidney biopsy; which patient refused on multiple occasions but then finally had it which showed a good prognosis FSGN which usually responds to steroids. Also, During hospital coarse, she was found to have coffee ground emesis and EGD was done on 09/26/18 and showed M-W tear. Her hemoglobin was steadily dropping and she initially refused blood transfusion but then able to transfused 4 units. Started on steroid with good response. last HD was on 10/12/18. 09/26/18 EGD Pre-op diagnosis: gi bleed Post-op diagnosis: same Findings: EGD: large hiatal hernia - m-w tear with pigmented area jut above g-e junction - mild gastritis - negative other Procedure: EGD Hospitalist Physical GEN: chronic disable, NAD, Awake, Alert, Orientated, bmi 47.5 HEENT: NCAT, EOMI, PERRL, OP Clear NECK: supple, no adenopathy, no thyromegaly, no JVD CVS/HEART: Regular tachy, normal S1S2, pulses present bilaterally CHEST/LUNGS: diminished bs bilateral, poor effort, Symmetrical chest expansion, good air entry bilaterally GI/Abdomen: soft, NTND, good bowel sounds, no guarding or rebound /Bladder: no suprapubic tenderness, no CVA or paraspinal tenderness EXT/Skin: ble edema no obvious rash MSK: FROM x 4 Neuro: CN 2-12 grossly intact, no new focal deficits Psych: calm Subjective Date of service: 10/16/18 Principal diagnosis: IJ DVT Interval history: Patient seen and examined No acute event o/n, last HD was on Monday Discussed with nephrology, plan to d/c tomorrow if no further Hd needed Objective - Constitutional Vitals: Vital Signs - 12hr 10/16/18 10/16/18 06:48 11:42 Temperature 98.4 F 97.9 F Pulse Rate 70 70 Respiratory 20 Rate Blood Pressure 124/76 119/68 O2 Sat by Pulse 99 99 Oximetry - Labs CBC & Chem 7: 10/17/18 10:08 10/17/18 10:08 Labs: Abnormal lab results 10/16/18 10/16/18 Range/Units 10:21 13:24 Hgb 8.7 L (10.1-14.3) gm/dl Hct 27.7 L (30.3-42.9) % BUN 39 H (7-17) mg/dL Creatinine 4.2 H (0.7-1.2) mg/dL Glucose 115 H (65-100) mg/dL Calcium 7.0 L (8.4-10.2) mg/dL Phosphorus 4.90 H (2.5-4.5) mg/dL
[2018-10-16] MEDS: BENADRYL PO SCH (22:55)
[2018-10-16] MEDS: HALDOL PO SCH (22:55)
[2018-10-17] MEDS: LASIX PO SCH ×2 (06:01→18:35)
[2018-10-17] MEDS: HEPARIN SUB-Q SCH ×3 (06:01→22:23)
--- NOTE | 2018-10-17 07:00 | Progress Note ---
Assessment and Plan 1. Acute kidney injury: LUCILA secondary to blocked tubules from Proteinuria. Patient was started on hemodialysis on 09/24/2018 due to worsening renal function, anasarca and suspected pulmonary edema. Last dialyzed on 10/12/18. Creatinine level is improving. Monitor renal function. Renal prognosis guarded. 2. Nephrotic syndrome: Kidney bx showed Tip variant FSGS. Continue Prednisone. Monitor renal function. On Heparin to prevent DVT. Continue Statin. 3. FEN: Volume overload, on Lasix. Hyperkalemia, improved. 4. VRE bacteriuria. 5. HTN: Monitor BP. 6. Anemia: GI bleed. S/p PRBC. Epogen with HD. 7. Schizophrenia. 8. Medical non-compliance. D/w CM regarding the hemodialysis plan. She can come to [facility] ER on mondays and for dialysis starting 10/22/18. Subjective Date of service: 10/17/18 Principal diagnosis: IJ DVT Interval history: Patient was seen and examined at the bedside. Doing ok. Objective - Vital Signs Vital signs: Vital Signs - 12hr 10/16/18 10/16/18 10/17/18 22:17 22:55 04:13 Temperature 98.0 F 97.8 F Pulse Rate 65 65 Respiratory 20 20 Rate Blood Pressure 99/81 146/89 O2 Sat by Pulse 96 96 96 Oximetry - General Appearance General appearance: well-developed, well-nourished, appears stated age, obese, other (not in distress, facial plethora noted, right IJ tunnel catheter) EENT: ATNC, PERRL, hearing intact, vision intact Neck: supple Respiratory: Present: Clear to Ascultation Cardiology: regular, S1S2, no murmurs Gastrointestinal: normoactive bowel sounds, no tenderness, no distended Integumentary: warm and dry Neurologic: no focal deficit, no asterixis, alert and oriented x3 Musculoskeletal: other (1 to 2+ LE edema noted) - Lab 10/17/18 10:08 10/17/18 10:08 Most recent lab results Calcium 7.0 mg/dL (8.4-10.2) L 10/16/18 10:21 Phosphorus 4.90 mg/dL (2.5-4.5) H 10/16/18 10:21 Magnesium 1.70 mg/dL (1.7-2.3) 10/14/18 07:11 Urine Creatinine 97.5 mg/dL (0.1-20.0) H 09/21/18 07:00 Ur Total Protein 24 Hr 1073.50 mg/dL (2-200) H 09/18/18 10:30 Urine Sodium 53 mmol/L 09/21/18 07:00 Urine Total Protein 708 mg/dL (5-11.8) H 09/21/18 07:00 Medications & Allergies - Medications Allergies/Adverse Reactions: Allergies No Known Allergies Allergy (Unverified 09/17/18 15:05) Home Medications: Home Medications Medication Instructions Recorded Confirmed Last Taken Type AtorvaSTATin [Lipitor] 40 mg PO QHS #30 tablet 10/17/18 Unknown Rx Divalproex Sodium [Depakote] 500 mg PO BID #60 tablet. 10/17/18 Unknown Rx Furosemide [Lasix TAB] 80 mg PO 0600,1800 #60 tablet 10/17/18 Unknown Rx Haloperidol [Haldol] 5 mg PO HS #30 tablet 10/17/18 Unknown Rx Metoprolol [Lopressor TAB] 50 mg PO BID #60 tablet 10/17/18 Unknown Rx Pantoprazole [Protonix TAB] 40 mg PO DAILY #30 tablet 10/17/18 Unknown Rx diphenhydrAMINE [Benadryl CAP] 50 mg PO HS #30 capsule 10/17/18 Unknown Rx predniSONE [Deltasone] 80 mg PO QDAY #120 tablet 10/17/18 Unknown Rx Active Medications: Generic Name Dose Route Start Last Admin Trade Name Freq PRN Reason Stop Dose Admin Acetaminophen 650 mg 09/18/18 02:40 09/27/18 05:36 Tylenol PO 650 mg Q4H PRN Administration Pain MILD(1-3)/Fever >100.5/MENDOZA Atorvastatin Calcium 40 mg 09/18/18 22:00 10/16/18 22:55 Lipitor PO 40 mg QHS LUZ Administration Diphenhydramine HCl 50 mg 09/18/18 22:00 10/16/18 22:55 Benadryl PO 50 mg HS LUZ Administration Divalproex Sodium 500 mg 09/18/18 10:00 10/16/18 22:[address] PO 500 mg BID LUZ Administration Epoetin Luis 20,000 unit 09/26/18 12:23 10/11/18 19:01 Procrit SUB-Q 20,000 unit KUSHAL PRN Administration hemodialysis Furosemide 80 mg 09/29/18 06:00 10/17/18 06:01 Lasix PO 80 mg 0600,1800 LUZ Administration Haloperidol 5 mg 09/25/18 22:00 10/16/18 22:55 Haldol PO 5 mg HS LUZ Administration Heparin Sodium (Porcine) 2,000 unit 10/13/18 13:08 Heparin 10,000 Units/10 Ml IV KUSHAL PRN hemodialysis Heparin Sodium (Porcine) 5,000 unit 10/13/18 13:08 Heparin IV KUSHAL PRN hemodialysis Heparin Sodium (Porcine) 5,000 unit 10/13/18 14:00 10/17/18 06:01 Heparin SUB-Q 5,000 unit Q8HR LUZ Administration Hydralazine HCl 10 mg 09/22/18 06:28 09/22/18 12:12 Apresoline IV 10 mg Q4H PRN Administration systolic b/p >165 Hydromorphone HCl 0.5 mg 09/18/18 02:40 Dilaudid IV Q3H PRN Pain , Severe (7-10) Sodium Chloride 100 mls @ 999 mls/hr 10/13/18 13:08 Nacl 0.9% IV KUSHAL PRN Hypotension Metoprolol Tartrate 50 mg 10/07/18 13:00 10/16/18 22:56 Lopressor PO Not Given BID LUZ Ondansetron HCl 4 mg 09/18/18 02:40 10/07/18 03:15 Zofran IV 4 mg Q8H PRN Administration Nausea And Vomiting Oxycodone/Acetaminophen 1 tab 09/18/18 02:40 10/09/18 22:03 Percocet 5/325 PO 1 tab Q6H PRN Administration Pain, Moderate (4-6) Pantoprazole Sodium 40 mg 10/02/18 10:00 10/16/18 13:58 Protonix PO 40 mg DAILY LUZ Administration Prednisone 80 mg 10/12/18 10:00 10/16/18 13:58 Deltasone PO 80 mg QDAY LUZ Administration Sodium Chloride 10 ml 09/18/18 10:00 10/16/18 22:55 Sodium Chloride Flush Syringe 10 Ml IV 10 ml BID LUZ Administration Sodium Chloride 10 ml 09/18/18 02:40 10/11/18 22:43 Sodium Chloride Flush Syringe 10 Ml IV 10 ml PRN PRN Administration LINE FLUSH
--- NOTE | 2018-10-17 07:41 | Hem/Onc Progress Note ---
Assessment and Plan 1. History based on the notes of neck deep vein thrombosis. Nephrotic syndrome may have a role in her deep vein thrombosis. The management of this will become challenging. The patient had Radha-Mendez tear, anticoagulation is needed. However, due to recent bleed, we would be forced to avoid the same. 2. Nephrotic syndrome and proteinuria most likely has a role in her DVT formation. 3. Anemia with history of gastrointestinal bleed, status post transfusion. We will investigate and follow. 4. Mild thrombocytopenia. 5. Renal impairment. 6. Nephrotic syndrome, on steroids. 7. On Depakote. 8. On medications for hypertension and medications for hyperlipidemia. 9. Vancomycin-resistant enterococcal bacteriuria. 10. History of schizophrenia. 11. History of breast lump. This would need outpatient followup. 12. History of hemodialysis. 13. History of esophagogastroduodenoscopy. 14. History of hematemesis. I will follow the patient during inpatient stay and then in the clinic setting. 10/15 - d/w dr gilliam on 10/13 neck doppler not available - vascular team found the clot - when theny were doing the HD cath 10/17 clinically stable not on anticoag due to recent bleed plt better anemia renal impairement - low folate - replace - Patient Problems (1) Deep vein thrombosis Current Visit: Yes Status: Acute Subjective Date of service: 10/17/18 Principal diagnosis: neck DVT Interval history: no bleeding Objective - Constitutional Vitals: Last Vital Signs Temp 97.8 F 10/17/18 04:13 Pulse 65 10/17/18 04:13 Resp 20 10/17/18 04:13 BP 146/89 10/17/18 04:13 Pulse Ox 96 10/17/18 04:13 Pain Intensity (0-10): denies any pain General appearance: no acute distress Performance status: 3-limited selfcare - EENT Eyes: EOM intact ENT: clear oral mucosa Lymph node exam: negative cervical - Neck Neck: normal ROM - Respiratory Respiratory effort: Positive: normal Respiratory: bilateral: CTA - Cardiovascular Heart Sounds: Present: S1 & S2 Extremities: No edema - Gastrointestinal General gastrointestinal: Present: soft, non-tender Rectal Exam: deferred - Genitourinary Female genitourinary: Present: deferred - Integumentary Integumentary: warm - Musculoskeletal Musculoskeletal: strength equal bilaterally - Neurologic Neurologic: moves all extremities - Labs Lab Results: Laboratory Results - last 24 hr 10/16/18 10/16/18 10:21 13:24 Hgb 8.7 L Hct 27.7 L Sodium 141 Potassium 4.5 Chloride 104.4 Carbon Dioxide 29 Anion Gap 12 BUN 39 H Creatinine 4.2 H Estimated GFR 14 BUN/Creatinine Ratio 9 Glucose 115 H Calcium 7.0 L Phosphorus 4.90 H Medications & Allergies - Medications Allergies/Adverse Reactions: Allergies No Known Allergies Allergy (Unverified 09/17/18 15:05) Home Medications: Home Medications Medication Instructions Recorded Confirmed Last Taken Type AtorvaSTATin [Lipitor] 40 mg PO QHS #30 tablet 10/17/18 Unknown Rx Divalproex Sodium [Depakote] 500 mg PO BID #60 tablet. 10/17/18 Unknown Rx Furosemide [Lasix TAB] 80 mg PO 0600,1800 #60 tablet 10/17/18 Unknown Rx Haloperidol [Haldol] 5 mg PO HS #30 tablet 10/17/18 Unknown Rx Metoprolol [Lopressor TAB] 50 mg PO BID #60 tablet 10/17/18 Unknown Rx Pantoprazole [Protonix TAB] 40 mg PO DAILY #30 tablet 10/17/18 Unknown Rx diphenhydrAMINE [Benadryl CAP] 50 mg PO HS #30 capsule 10/17/18 Unknown Rx predniSONE [Deltasone] 80 mg PO QDAY #120 tablet 10/17/18 Unknown Rx Active Medications: Generic Name Dose Route Start Last Admin Trade Name Freq PRN Reason Stop Dose Admin Acetaminophen 650 mg 09/18/18 02:40 09/27/18 05:36 Tylenol PO 650 mg Q4H PRN Administration Pain MILD(1-3)/Fever >100.5/MENDOZA Atorvastatin Calcium 40 mg 09/18/18 22:00 10/16/18 22:55 Lipitor PO 40 mg QHS LUZ Administration Diphenhydramine HCl 50 mg 09/18/18 22:00 10/16/18 22:55 Benadryl PO 50 mg HS LUZ Administration Divalproex Sodium 500 mg 09/18/18 10:00 10/16/18 22:[address] PO 500 mg BID LUZ Administration Epoetin Luis 20,000 unit 09/26/18 12:23 10/11/18 19:01 Procrit SUB-Q 20,000 unit KUSHAL PRN Administration hemodialysis Furosemide 80 mg 09/29/18 06:00 10/17/18 06:01 Lasix PO 80 mg 0600,1800 LUZ Administration Haloperidol 5 mg 09/25/18 22:00 10/16/18 22:55 Haldol PO 5 mg HS LUZ Administration Heparin Sodium (Porcine) 2,000 unit 10/13/18 13:08 Heparin 10,000 Units/10 Ml IV KUSHAL PRN hemodialysis Heparin Sodium (Porcine) 5,000 unit 10/13/18 13:08 Heparin IV KUSHAL PRN hemodialysis Heparin Sodium (Porcine) 5,000 unit 10/13/18 14:00 10/17/18 06:01 Heparin SUB-Q 5,000 unit Q8HR LUZ Administration Hydralazine HCl 10 mg 09/22/18 06:28 09/22/18 12:12 Apresoline IV 10 mg Q4H PRN Administration systolic b/p >165 Hydromorphone HCl 0.5 mg 09/18/18 02:40 Dilaudid IV Q3H PRN Pain , Severe (7-10) Sodium Chloride 100 mls @ 999 mls/hr 10/13/18 13:08 Nacl 0.9% IV KUSHAL PRN Hypotension Metoprolol Tartrate 50 mg 10/07/18 13:00 10/16/18 22:56 Lopressor PO Not Given BID LUZ Ondansetron HCl 4 mg 09/18/18 02:40 10/07/18 03:15 Zofran IV 4 mg Q8H PRN Administration Nausea And Vomiting Oxycodone/Acetaminophen 1 tab 09/18/18 02:40 10/09/18 22:03 Percocet 5/325 PO 1 tab Q6H PRN Administration Pain, Moderate (4-6) Pantoprazole Sodium 40 mg 10/02/18 10:00 10/16/18 13:58 Protonix PO 40 mg DAILY LUZ Administration Prednisone 80 mg 10/12/18 10:00 10/16/18 13:58 Deltasone PO 80 mg QDAY LUZ Administration Sodium Chloride 10 ml 09/18/18 10:00 10/16/18 22:55 Sodium Chloride Flush Syringe 10 Ml IV 10 ml BID LUZ Administration Sodium Chloride 10 ml 09/18/18 02:40 10/11/18 22:43 Sodium Chloride Flush Syringe 10 Ml IV 10 ml PRN PRN Administration LINE FLUSH
[2018-10-17 10:35] LABS: Basophils % (Auto) 0.1 % (0.0-1.8); Hemoglobin 8.8 gm/dl (10.1-14.3); Lymphocytes # (Auto) 1.5 K/mm3 (1.2-5.4); Lymphocytes % (Auto) 19.8 % (13.4-35.0); Mean Corpuscular HGB Conc 32 % (30-34); Mean Corpuscular Volume 89 fl (79-97); Monocytes # (Auto) 0.7 K/mm3 (0.0-0.8); Monocytes % (Auto) 8.9 % (0.0-7.3); Platelet Count 190 K/mm3 (140-440); Red Blood Count 3.13 M/mm3 (3.65-5.03)
[2018-10-17 10:41] LABS: Red Cell Distribution Width 23.1 % (13.2-15.2)
[2018-10-17 10:59] LABS: Calcium 7.2 mg/dL (8.4-10.2)
[2018-10-17] MEDS: DELTASONE PO SCH (11:35)
[2018-10-17] MEDS: LOPRESSOR PO SCH ×2 (11:36→22:49)
[2018-10-17] MEDS: PROTONIX PO SCH (11:36)
[2018-10-17] MEDS: SODIUM CHLORIDE FLUSH SYRINGE 10 ML IV SCH ×2 (11:37→22:27)
--- NOTE | 2018-10-17 15:49 | Discharge Summary ---
Providers - Providers Date of Admission: 09/17/18 18:15 Date of discharge: 10/18/18 Attending physician: HAVEN HIGH 09/18/18 02:40 Consult to Physician [CONS] Routine Comment: Consulting Provider: FLOWER LOZADA Physician Instructions: Reason For Exam: Nephrotic Syndrome 09/20/18 10:39 Physical Therapy Evaluation and Treat [CONS] Routine Comment: Reason For Exam: deconditioning 09/23/18 11:17 Consult to Physician [CONS] Routine Comment: Consulting Provider: JESSICA VELIZ Physician Instructions: Reason For Exam: coffee ground emesis 09/23/18 15:22 Consult to Mental Health [CONS] Routine Reason For Exam: declare imcompent Place consult to:: Notified:: Phone number called:: [phone] Was contact made?: No Time called:: 15:26 Comment:: no one answered 09/23/18 15:27 Consult to Physician [CONS] Routine Comment: Consulting Provider: AGATA HESS Physician Instructions: Reason For Exam: resp failure 09/24/18 11:11 Consult to Interventional Radiology [CONS] Urgent Consulting Provider: JOELLEN ADAME Reason For Exam: Hemodialysis catheter placement. Notified:: . 09/28/18 10:46 Consult to Physician [CONS] Routine Comment: Consulting Provider: MADHU PRAKASH Physician Instructions: Reason For Exam: VRE in the urine, antibiotic recommendations 10/05/18 11:44 Consult to Dietitian/Nutrition [CONS] Routine Physician Instructions: Reason For Exam: Reason for Consult: Malnutrition 10/06/18 08:22 Consult to Ethics Committee [CONS] Routine Reason For Exam: patient unable to make decision 10/11/18 15:06 Consult to Physician [CONS] Routine Comment: Consulting Provider: HAFSA NGUYEN Physician Instructions: Reason For Exam: hypercoagulable state Primary care physician: [employer] Hospitalization Reason for admission: LE swelling Condition: Stable Pertinent studies: CXR Renal US Renal Biopsy Hospital course: Brief History Patient is a 47 yo woman with a history of Obesity, HTN and Schizophrenia who presented to the ER with bilateral leg swelling, SOB and increase in the abdominal girth and weight gain of ~86 pounds in 10 weeks. Labs were significant for creatinine of 2.2, Hb 8.5, albumin 1.4 and 3+ protein in the urine. Patient was admitted with provisional diagnosis of Nephrotic syndrome. Nephrology was consulted for further evaluation, started on HD and recommended Kidney biopsy; which patient refused on multiple occasions but then finally had it which showed a good prognosis FSGN which usually responds to steroids. Also, During hospital coarse, she was found to have coffee ground emesis and EGD was done on 09/26/18 and showed M-W tear. Her hemoglobin was steadily dropping and she initially refused blood transfusion but then able to transfused 4 units. Started on steroid with good response. last HD was on 10/12/18. 09/26/18 EGD Pre-op diagnosis: gi bleed Post-op diagnosis: same Findings: EGD: large hiatal hernia - m-w tear with pigmented area jut above g-e junction - mild gastritis - negative other Procedure: EGD Discharge diagnosis and management; /Acute renal failure due to Nephrotic syndrome/FSGS. Patient was started on hemodialysis on 09/24/2018 due to worsening renal function, anasarca and suspected pulmonary edema. Last dialyzed on 10/12/18, renal biopsy 10/10/18 showed FSGN, new diagnosis, cont steroids per Nephrology Per renal Unlikely she would need hemodialysis in the near future. Removed perm cath before discharge. will continue close outpt followup /Coffee-ground emesis with Radha Mendez Tear. GI consulted H&H dropped, s/p EGD showed MW tear, s/p PRBC transfusion. /Acute on chronic Blood loss anemia due to MW tear- s/p 4 units PRBC transfusion /Right lower extremity thigh pain. Resolved, Doppler lower extremities bilaterally negative for DVT /Left breast swelling, unknown at present. Need outpatient Mammogram and U/S /Morbid obesity, bmi 55.2: lifestyle modification /Medical noncompliance. Patient intermittently at times refusing care. Per psych she has decision making capacity. /Schizophrenia, Bipolar disorder. Continue current medications.. Psych consulted /Hyperkalemia. s/p Kayexalate. Resolved /Presumed Sepsis. Left lower lobe pneumonia ? . Present on admission. treated with Iv abx /UTI? with VRE: ID was following, ordered isolation, treated with amoxicillin for 3 days, likely colonization /DVT OF internal jugular vein- discussed with vascular surgeon considering patient's history of GI bleed, Radha-Mendez tear, recurrent anemia required transfusion patient appears not to be a candidate at this time for anticoagulation. per Heme/onc most likely related to nephrotic syndrome, and would not a/c due to recent gi bleed. D/w Dr. Nguyen /DVT prophylaxis: patient was refusing injections, SCD Hospitalist Physical GEN: chronic disable, NAD, Awake, Alert, Orientated, bmi 47.5 HEENT: NCAT, EOMI, PERRL, OP Clear NECK: supple, no adenopathy, no thyromegaly, no JVD CVS/HEART: Regular tachy, normal S1S2, pulses present bilaterally CHEST/LUNGS: diminished bs bilateral, poor effort, Symmetrical chest expansion, good air entry bilaterally GI/Abdomen: soft, NTND, good bowel sounds, no guarding or rebound /Bladder: no suprapubic tenderness, no CVA or paraspinal tenderness EXT/Skin: ble edema no obvious rash MSK: FROM x 4 Neuro: CN 2-12 grossly intact, no new focal deficits Psych: calm Disposition: DC/[place]-03 [facility] Time spent for discharge: 34 minutes Core Measure Documentation - Palliative Care Palliative Care/ Comfort Measures: Not Applicable - Core Measures Any of the following diagnoses?: none Exam - Constitutional Vitals: Temp Pulse Resp BP Pulse Ox 97.8 F 65 20 145/93 96 10/17/18 04:13 10/17/18 04:13 10/17/18 04:13 10/17/18 11:36 10/17/18 04:13 Plan Activity: advance as tolerated Weight Bearing Status: Weight Bear as Tolerated Diet: renal Additional Instructions: f/u with Dr Lozada in a week Follow up with: [facility] [Other] - 3-5 Days Prescriptions: AtorvaSTATin [Lipitor] 40 mg PO QHS #30 tablet diphenhydrAMINE [Benadryl CAP] 50 mg PO HS #30 capsule predniSONE [Deltasone] 80 mg PO QDAY #120 tablet Divalproex Sodium [Depakote] 500 mg PO BID #60 tablet. Haloperidol [Haldol] 5 mg PO HS #30 tablet Furosemide [Lasix TAB] 80 mg PO 0600,1800 #60 tablet Metoprolol [Lopressor TAB] 50 mg PO BID #60 tablet Pantoprazole [Protonix TAB] 40 mg PO DAILY #30 tablet
--- NOTE | 2018-10-17 18:37 | Progress Note ---
Assessment and Plan Patient sleeping. On room air.O2 saturation 100%. No acute respiratory distress.Patient has CT guided kidney biopsy . Biopsy results still pending. - Patient Problems (1) Pneumonia involving left lung Current Visit: Yes Status: Acute Plan to address problem: Patient is off the antibiotics. Chest xray reported no acute cardiopulmonary process. Patient afebrile. No leukocytosis. (2) Acute exacerbation of congestive heart failure Current Visit: Yes Status: Acute Plan to address problem: Management as per cardiology. (3) Nephrotic syndrome Current Visit: Yes Status: Acute Plan to address problem: Management as per nephrology. Patient has CT guided Right Kidney biopsy. Subjective Date of service: 10/17/18 Principal diagnosis: IJ DVT Interval history: Patient sleeping . On room air.O2 saturation 98%. No acute respiratory distress.Patient has CT guided kidney biopsy . Results still pending. Objective Vital Signs - 12hr 10/17/18 10/17/18 11:36 18:16 Temperature 97.7 F Pulse Rate 71 Respiratory 20 Rate Blood Pressure 145/93 129/76 O2 Sat by Pulse 98 Oximetry Constitutional: no acute distress, asleep Eyes: non-icteric ENT: oropharynx moist Neck: supple, no JVD Effort: normal Ascultation: Bilateral: diminished breath sounds Percussion: Bilateral: not dull Cardiovascular: regular rate and rhythm Gastrointestinal: normoactive bowel sounds, soft, non-tender Integumentary: normal Extremities: no cyanosis, no edema Neurologic: non-focal exam, pupils equal and round, CN II-XII normal Psychiatric: depressed CBC and BMP: 10/17/18 10:08 10/17/18 10:08 ABG, PT/INR, D-dimer: ABG POC ABG pH 7.434 (7.35-7.45) 10/05/18 18:03 POC ABG pCO2 43.4 (35-45) 10/05/18 18:03 POC ABG pO2 57 (80-105) L 10/05/18 18:03 POC ABG HCO3 29.0 (22-26 mml/L) 10/05/18 18:03 POC ABG Total CO2 30 (23-27mmol/L) 10/05/18 18:03 POC ABG O2 Sat 90 10/05/18 18:03 PT/INR, D-dimer PT 13.4 Sec. (12.2-14.9) 10/10/18 09:01 INR 0.96 (0.87-1.13) 10/10/18 09:01 Abnormal lab findings: Abnormal Labs 09/17/18 09/17/18 09/17/18 15:17 15:17 15:17 WBC RBC 3.34 L Hgb 9.1 L Hct 27.9 L MCH 27 L RDW 20.5 H Plt Count Lymph % (Auto) [place] % (Auto) 8.8 H [place] # Seg Neutrophils % Seg Neuts % (Manual) Lymphocytes % (Manual) Monocytes % (Manual) Nucleated RBC % Lymphocytes # (Manual) Monocytes # (Manual) APTT 22.2 L POC ABG pO2 Potassium Chloride 107.7 H BUN 37 H Creatinine 2.3 H Glucose Calcium 7.4 L Phosphorus Magnesium 2.60 H TIBC ALT Total Creatine Kinase NT-Pro-B Natriuret Pep 992.5 H Serum Total Protein Total Protein 4.1 L Albumin 1.3 L Gamma Globulins PEP Interpretation Folate Urine WBC (Auto) Urine Creatinine Ur Creatinine 24 Hour Ur Total Protein 24 Hr Urine Total Protein Valproic Acid Crossmatch 09/17/18 09/18/18 09/18/18 17:18 05:22 05:22 WBC 4.4 L RBC 3.06 L Hgb 8.5 L Hct 25.5 L MCH RDW 20.0 H Plt Count Lymph % (Auto) 36.5 H [place] % (Auto) 12.3 H [place] # Seg Neutrophils % Seg Neuts % (Manual) Lymphocytes % (Manual) Monocytes % (Manual) Nucleated RBC % Lymphocytes # (Manual) Monocytes # (Manual) APTT POC ABG pO2 Potassium Chloride 107.2 H BUN 37 H Creatinine 2.2 H Glucose Calcium 7.4 L Phosphorus Magnesium TIBC ALT 6 L Total Creatine Kinase NT-Pro-B Natriuret Pep Serum Total Protein Total Protein 3.9 L Albumin 1.4 L Gamma Globulins PEP Interpretation Folate Urine WBC (Auto) 15.0 H Urine Creatinine Ur Creatinine 24 Hour Ur Total Protein 24 Hr Urine Total Protein Valproic Acid Crossmatch 09/18/18 09/19/18 09/19/18 10:30 05:45 05:45 WBC RBC Hgb Hct MCH RDW Plt Count Lymph % (Auto) [place] % (Auto) [place] # Seg Neutrophils % Seg Neuts % (Manual) Lymphocytes % (Manual) Monocytes % (Manual) Nucleated RBC % Lymphocytes # (Manual) Monocytes # (Manual) APTT POC ABG pO2 Potassium Chloride BUN 37 H Creatinine 2.1 H Glucose Calcium 7.3 L Phosphorus Magnesium TIBC ALT Total Creatine Kinase NT-Pro-B Natriuret Pep Serum Total Protein 3.4 L Total Protein Albumin 1.2 L Gamma Globulins 0.5 L PEP Interpretation see below H Folate Urine WBC (Auto) Urine Creatinine 147.5 H Ur Creatinine 24 Hour 0.7 L Ur Total Protein 24 Hr 1073.50 H Urine Total Protein 226 H Valproic Acid Crossmatch 09/20/18 09/20/18 09/21/18 04:56 15:15 06:13 WBC RBC 2.84 L Hgb 7.8 L Hct 24.1 L MCH 27 L RDW 19.8 H Plt Count Lymph % (Auto) [place] % (Auto) 12.9 H [place] # Seg Neutrophils % Seg Neuts % (Manual) Lymphocytes % (Manual) Monocytes % (Manual) Nucleated RBC % Lymphocytes # (Manual) Monocytes # (Manual) APTT POC ABG pO2 Potassium 5.4 H 5.5 H Chloride 108.2 H BUN 38 H Creatinine 2.4 H Glucose Calcium 7.2 L Phosphorus Magnesium TIBC ALT Total Creatine Kinase NT-Pro-B Natriuret Pep Serum Total Protein Total Protein Albumin Gamma Globulins PEP Interpretation Folate Urine WBC (Auto) Urine Creatinine Ur Creatinine 24 Hour Ur Total Protein 24 Hr Urine Total Protein Valproic Acid Crossmatch 09/21/18 09/21/18 09/22/18 06:13 07:00 10:12 WBC RBC Hgb Hct MCH RDW Plt Count Lymph % (Auto) [place] % (Auto) [place] # Seg Neutrophils % Seg Neuts % (Manual) Lymphocytes % (Manual) Monocytes % (Manual) Nucleated RBC % Lymphocytes # (Manual) Monocytes # (Manual) APTT POC ABG pO2 Potassium 5.2 H Chloride 108.2 H 111.5 H BUN 39 H 40 H Creatinine 2.7 H 3.1 H Glucose Calcium 7.3 L 7.1 L Phosphorus Magnesium TIBC ALT Total Creatine Kinase NT-Pro-B Natriuret Pep Serum Total Protein Total Protein Albumin Gamma Globulins PEP Interpretation Folate Urine WBC (Auto) Urine Creatinine 97.5 H Ur Creatinine 24 Hour Ur Total Protein 24 Hr Urine Total Protein 708 H Valproic Acid Crossmatch 09/23/18 09/25/18 09/25/18 04:40 07:30 07:30 WBC RBC 2.55 L Hgb 6.9 L Hct 21.5 L MCH 27 L RDW 19.5 H Plt Count Lymph % (Auto) [place] % (Auto) 12.2 H [place] # Seg Neutrophils % Seg Neuts % (Manual) Lymphocytes % (Manual) Monocytes % (Manual) Nucleated RBC % Lymphocytes # (Manual) Monocytes # (Manual) APTT POC ABG pO2 Potassium Chloride 109.1 H BUN 42 H 33 H Creatinine 3.8 H 4.4 H Glucose 102 H Calcium 7.2 L 7.3 L Phosphorus 5.00 H Magnesium TIBC ALT Total Creatine Kinase NT-Pro-B Natriuret Pep Serum Total Protein Total Protein Albumin Gamma Globulins PEP Interpretation Folate Urine WBC (Auto) Urine Creatinine Ur Creatinine 24 Hour Ur Total Protein 24 Hr Urine Total Protein Valproic Acid Crossmatch 09/26/18 09/26/18 09/26/18 07:17 07:17 07:17 WBC RBC Hgb 6.7 L Hct 20.0 L MCH RDW Plt Count Lymph % (Auto) [place] % (Auto) [place] # Seg Neutrophils % Seg Neuts % (Manual) Lymphocytes % (Manual) Monocytes % (Manual) Nucleated RBC % Lymphocytes # (Manual) Monocytes # (Manual) APTT POC ABG pO2 Potassium Chloride BUN 24 H Creatinine 4.1 H Glucose Calcium 7.0 L Phosphorus Magnesium TIBC ALT Total Creatine Kinase 559 H NT-Pro-B Natriuret Pep Serum Total Protein Total Protein Albumin Gamma Globulins PEP Interpretation Folate Urine WBC (Auto) Urine Creatinine Ur Creatinine 24 Hour Ur Total Protein 24 Hr Urine Total Protein Valproic Acid 13.2 L Crossmatch 09/26/18 09/27/18 09/27/18 Unknown 07:42 07:42 WBC RBC 2.16 L Hgb 6.0 L Hct 18.1 L* MCH RDW 18.9 H Plt Count 130 L Lymph % (Auto) [place] % (Auto) 15.8 H [place] # Seg Neutrophils % Seg Neuts % (Manual) Lymphocytes % (Manual) Monocytes % (Manual) Nucleated RBC % Lymphocytes # (Manual) Monocytes # (Manual) APTT 36.7 H POC ABG pO2 Potassium Chloride 108.4 H BUN 26 H Creatinine 4.8 H Glucose Calcium 7.1 L Phosphorus 4.60 H Magnesium TIBC ALT Total Creatine Kinase NT-Pro-B Natriuret Pep Serum Total Protein Total Protein Albumin Gamma Globulins PEP Interpretation Folate Urine WBC (Auto) Urine Creatinine Ur Creatinine 24 Hour Ur Total Protein 24 Hr Urine Total Protein Valproic Acid Crossmatch 09/27/18 09/28/18 09/29/18 10:43 04:43 05:07 WBC RBC 3.29 L 3.28 L Hgb 8.9 L 8.9 L Hct 27.2 L D 27.1 L MCH 27 L 27 L RDW 19.3 H 19.3 H Plt Count 130 L 133 L Lymph % (Auto) [place] % (Auto) 15.6 H [place] # 0.9 H Seg Neutrophils % Seg Neuts % (Manual) Lymphocytes % (Manual) Monocytes % (Manual) Nucleated RBC % Lymphocytes # (Manual) Monocytes # (Manual) APTT POC ABG pO2 Potassium Chloride BUN Creatinine Glucose Calcium Phosphorus Magnesium TIBC ALT Total Creatine Kinase NT-Pro-B Natriuret Pep Serum Total Protein Total Protein Albumin Gamma Globulins PEP Interpretation Folate Urine WBC (Auto) Urine Creatinine Ur Creatinine 24 Hour Ur Total Protein 24 Hr Urine Total Protein Valproic Acid Crossmatch See Detail 09/29/18 10/01/18 10/01/18 05:07 06:16 06:16 WBC RBC 3.18 L Hgb 8.6 L Hct 26.2 L MCH 27 L RDW 19.3 H Plt Count Lymph % (Auto) [place] % (Auto) [place] # Seg Neutrophils % Seg Neuts % (Manual) Lymphocytes % (Manual) Monocytes % (Manual) Nucleated RBC % Lymphocytes # (Manual) Monocytes # (Manual) APTT POC ABG pO2 Potassium Chloride BUN 22 H 22 H Creatinine 5.4 H 6.0 H Glucose Calcium 7.1 L 7.1 L Phosphorus Magnesium TIBC ALT Total Creatine Kinase NT-Pro-B Natriuret Pep Serum Total Protein Total Protein Albumin Gamma Globulins PEP Interpretation Folate Urine WBC (Auto) Urine Creatinine Ur Creatinine 24 Hour Ur Total Protein 24 Hr Urine Total Protein Valproic Acid Crossmatch 10/05/18 10/05/18 10/05/18 06:50 06:50 18:03 WBC RBC 3.08 L Hgb 8.3 L Hct 25.6 L MCH 27 L RDW 19.0 H Plt Count Lymph % (Auto) [place] % (Auto) [place] # Seg Neutrophils % Seg Neuts % (Manual) Lymphocytes % (Manual) Monocytes % (Manual) 11.0 H Nucleated RBC % Lymphocytes # (Manual) 0.9 L Monocytes # (Manual) APTT POC ABG pO2 57 L Potassium Chloride BUN Creatinine 4.9 H Glucose Calcium 7.3 L Phosphorus Magnesium TIBC ALT Total Creatine Kinase NT-Pro-B Natriuret Pep Serum Total Protein Total Protein 4.1 L Albumin 1.5 L Gamma Globulins PEP Interpretation Folate Urine WBC (Auto) Urine Creatinine Ur Creatinine 24 Hour Ur Total Protein 24 Hr Urine Total Protein Valproic Acid Crossmatch 10/06/18 10/07/18 10/07/18 06:22 13:11 13:11 WBC RBC 3.04 L 3.36 L Hgb 8.1 L 9.0 L Hct 25.2 L 28.0 L MCH 27 L 27 L RDW 19.2 H 20.0 H Plt Count Lymph % (Auto) [place] % (Auto) [place] # Seg Neutrophils % Seg Neuts % (Manual) 71.0 H Lymphocytes % (Manual) 10.0 L Monocytes % (Manual) 14.0 H 18.0 H Nucleated RBC % 2.0 H Lymphocytes # (Manual) 1.0 L 0.7 L Monocytes # (Manual) 1.0 H 1.2 H APTT POC ABG pO2 Potassium Chloride BUN Creatinine 4.9 H Glucose 128 H Calcium 7.4 L Phosphorus Magnesium TIBC ALT Total Creatine Kinase NT-Pro-B Natriuret Pep Serum Total Protein Total Protein Albumin Gamma Globulins PEP Interpretation Folate Urine WBC (Auto) Urine Creatinine Ur Creatinine 24 Hour Ur Total Protein 24 Hr Urine Total Protein Valproic Acid Crossmatch 10/10/18 10/10/18 10/10/18 06:41 06:41 09:01 WBC RBC 2.40 L Hgb 6.6 L Hct 20.4 L D MCH RDW 20.3 H Plt Count 124 L Lymph % (Auto) [place] % (Auto) [place] # Seg Neutrophils % Seg Neuts % (Manual) Lymphocytes % (Manual) Monocytes % (Manual) Nucleated RBC % Lymphocytes # (Manual) Monocytes # (Manual) APTT POC ABG pO2 Potassium Chloride BUN 18 H Creatinine 5.6 H Glucose Calcium 6.8 L Phosphorus Magnesium TIBC ALT Total Creatine Kinase NT-Pro-B Natriuret Pep Serum Total Protein Total Protein Albumin Gamma Globulins PEP Interpretation Folate Urine WBC (Auto) Urine Creatinine Ur Creatinine 24 Hour Ur Total Protein 24 Hr Urine Total Protein Valproic Acid Crossmatch See Detail 10/11/18 10/12/18 10/12/18 07:46 09:25 09:25 WBC RBC 2.40 L 3.14 L Hgb 6.6 L 8.8 L Hct 20.8 L 27.5 L D MCH 27 L RDW 21.1 H 20.5 H Plt Count 132 L Lymph % (Auto) [place] % (Auto) [place] # Seg Neutrophils % Seg Neuts % (Manual) Lymphocytes % (Manual) Monocytes % (Manual) Nucleated RBC % Lymphocytes # (Manual) Monocytes # (Manual) APTT POC ABG pO2 Potassium Chloride BUN 21 H Creatinine 4.3 H Glucose 141 H Calcium 7.3 L Phosphorus Magnesium TIBC ALT Total Creatine Kinase NT-Pro-B Natriuret Pep Serum Total Protein Total Protein Albumin Gamma Globulins PEP Interpretation Folate Urine WBC (Auto) Urine Creatinine Ur Creatinine 24 Hour Ur Total Protein 24 Hr Urine Total Protein Valproic Acid Crossmatch 10/13/18 10/13/18 10/14/18 07:12 07:12 07:11 WBC RBC 2.55 L 2.58 L Hgb 7.4 L 7.5 L Hct 22.5 L 22.8 L MCH RDW 23.1 H 23.1 H Plt Count 137 L 134 L Lymph % (Auto) [place] % (Auto) [place] # Seg Neutrophils % Seg Neuts % (Manual) 76.0 H Lymphocytes % (Manual) Monocytes % (Manual) Nucleated RBC % Lymphocytes # (Manual) 1.1 L Monocytes # (Manual) APTT POC ABG pO2 Potassium Chloride BUN 27 H Creatinine 4.9 H Glucose Calcium 6.9 L Phosphorus 4.90 H Magnesium TIBC ALT Total Creatine Kinase NT-Pro-B Natriuret Pep Serum Total Protein Total Protein Albumin Gamma Globulins PEP Interpretation Folate Urine WBC (Auto) Urine Creatinine Ur Creatinine 24 Hour Ur Total Protein 24 Hr Urine Total Protein Valproic Acid Crossmatch 10/14/18 10/14/18 10/15/18 07:11 07:11 07:36 WBC RBC Hgb Hct MCH RDW Plt Count Lymph % (Auto) [place] % (Auto) [place] # Seg Neutrophils % Seg Neuts % (Manual) Lymphocytes % (Manual) Monocytes % (Manual) Nucleated RBC % Lymphocytes # (Manual) Monocytes # (Manual) APTT POC ABG pO2 Potassium Chloride BUN 24 H 33 H Creatinine 4.2 H 4.4 H Glucose Calcium 7.3 L 6.9 L Phosphorus Magnesium TIBC 134 L ALT 6 L Total Creatine Kinase NT-Pro-B Natriuret Pep Serum Total Protein Total Protein 3.8 L Albumin 1.5 L Gamma Globulins PEP Interpretation Folate 3.59 L Urine WBC (Auto) Urine Creatinine Ur Creatinine 24 Hour Ur Total Protein 24 Hr Urine Total Protein Valproic Acid Crossmatch 10/15/18 10/15/18 10/16/18 10:27 10:27 10:21 WBC RBC 2.67 L Hgb 7.5 L Hct 23.7 L MCH RDW 24.0 H Plt Count Lymph % (Auto) [place] % (Auto) 15.6 H [place] # 1.3 H Seg Neutrophils % Seg Neuts % (Manual) Lymphocytes % (Manual) Monocytes % (Manual) Nucleated RBC % Lymphocytes # (Manual) Monocytes # (Manual) APTT POC ABG pO2 Potassium Chloride 107.1 H BUN 33 H 39 H Creatinine 4.4 H 4.2 H Glucose 107 H 115 H Calcium 6.8 L 7.0 L Phosphorus 4.90 H Magnesium TIBC ALT Total Creatine Kinase NT-Pro-B Natriuret Pep Serum Total Protein Total Protein Albumin Gamma Globulins PEP Interpretation Folate Urine WBC (Auto) Urine Creatinine Ur Creatinine 24 Hour Ur Total Protein 24 Hr Urine Total Protein Valproic Acid Crossmatch 10/16/18 10/17/18 10/17/18 13:24 10:08 10:08 WBC RBC 3.13 L Hgb 8.7 L 8.8 L Hct 27.7 L 28.0 L MCH RDW 23.1 H Plt Count Lymph % (Auto) [place] % (Auto) 8.9 H [place] # Seg Neutrophils % 71.2 H Seg Neuts % (Manual) Lymphocytes % (Manual) Monocytes % (Manual) Nucleated RBC % Lymphocytes # (Manual) Monocytes # (Manual) APTT POC ABG pO2 Potassium Chloride BUN 43 H Creatinine 3.8 H Glucose 113 H Calcium 7.2 L Phosphorus Magnesium TIBC ALT Total Creatine Kinase NT-Pro-B Natriuret Pep Serum Total Protein Total Protein Albumin Gamma Globulins PEP Interpretation Folate Urine WBC (Auto) Urine Creatinine Ur Creatinine 24 Hour Ur Total Protein 24 Hr Urine Total Protein Valproic Acid Crossmatch Allied health notes reviewed: nursing
[2018-10-17] MEDS: HALDOL PO SCH (22:23)
[2018-10-17] MEDS: BENADRYL PO SCH (22:23)
[2018-10-18] MEDS: HEPARIN SUB-Q SCH (05:26)
[2018-10-18] MEDS: LASIX PO SCH (05:26)
--- NOTE | 2018-10-18 07:11 | Hem/Onc Progress Note ---
Assessment and Plan 1. History based on the notes of neck deep vein thrombosis. Nephrotic syndrome may have a role in her deep vein thrombosis. The management of this will become challenging. The patient had Radha-Mendez tear, anticoagulation is needed. However, due to recent bleed, we would be forced to avoid the same. 2. Nephrotic syndrome and proteinuria most likely has a role in her DVT formation. 3. Anemia with history of gastrointestinal bleed, status post transfusion. We will investigate and follow. 4. Mild thrombocytopenia. 5. Renal impairment. 6. Nephrotic syndrome, on steroids. 7. On Depakote. 8. On medications for hypertension and medications for hyperlipidemia. 9. Vancomycin-resistant enterococcal bacteriuria. 10. History of schizophrenia. 11. History of breast lump. This would need outpatient followup. 12. History of hemodialysis. 13. History of esophagogastroduodenoscopy. 14. History of hematemesis. I will follow the patient during inpatient stay and then in the clinic setting. 10/15 - d/w dr gilliam on 10/13 neck doppler not available - vascular team found the clot - when theny were doing the HD cath 10/16 no bleeding pt had GI bleed - needing prbc not on anticoag for the neck DVT h/o renal bx 10/18 h/o anemia - gi bleed nephrotic syndrome neck vein dvt - not on anticoag - Patient Problems (1) Deep vein thrombosis Status: Acute Subjective Date of service: 10/18/18 Principal diagnosis: neck vein dvt Interval history: says doing ok Objective - Constitutional Vitals: Last Vital Signs Temp 98.0 F 10/18/18 05:41 Pulse 81 10/17/18 23:46 Resp 20 10/18/18 05:41 BP 124/70 10/18/18 05:41 Pulse Ox 97 10/17/18 23:46 Pain Intensity (0-10): denies any pain General appearance: no acute distress Performance status: 3-limited selfcare - EENT Eyes: EOM intact ENT: hearing intact Lymph node exam: negative cervical - Neck Neck: normal ROM - Respiratory Respiratory effort: Positive: normal Respiratory: bilateral: CTA - Cardiovascular Heart Sounds: Present: S1 & S2 Extremity abnormal: edema - Gastrointestinal General gastrointestinal: Present: soft, non-tender Rectal Exam: deferred - Genitourinary Female genitourinary: Present: deferred - Integumentary Integumentary: warm - Musculoskeletal Musculoskeletal: strength equal bilaterally - Neurologic Neurologic: moves all extremities - Labs Lab Results: Laboratory Results - last 24 hr 10/17/18 10/17/18 10/18/18 10:08 10:08 05:27 WBC 7.4 RBC 3.13 L Hgb 8.8 L Hct 28.0 L MCV 89 MCH 28 MCHC 32 RDW 23.1 H Plt Count 190 Lymph % (Auto) 19.8 [place] % (Auto) 8.9 H Eos % (Auto) 0.0 Baso % (Auto) 0.1 Lymph # 1.5 [place] # 0.7 Eos # 0.0 Baso # 0.0 Seg Neutrophils % 71.2 H Seg Neutrophils # 5.3 Sodium 139 140 Potassium 4.4 4.5 Chloride 102.2 103.8 Carbon Dioxide 27 25 Anion Gap 14 16 BUN 43 H 50 H Creatinine 3.8 H 3.7 H Estimated GFR 15 16 BUN/Creatinine Ratio 11 14 Glucose 113 H 110 H Calcium 7.2 L 7.0 L Medications & Allergies - Medications Allergies/Adverse Reactions: Allergies No Known Allergies Allergy (Unverified 09/17/18 15:05) Home Medications: Home Medications Medication Instructions Recorded Confirmed Last Taken Type AtorvaSTATin [Lipitor] 40 mg PO QHS #30 tablet 10/17/18 Unknown Rx Divalproex Sodium [Depakote] 500 mg PO BID #60 tablet.dr 10/17/18 Unknown Rx Furosemide [Lasix TAB] 80 mg PO 0600,1800 #60 tablet 10/17/18 Unknown Rx Haloperidol [Haldol] 5 mg PO HS #30 tablet 10/17/18 Unknown Rx Metoprolol [Lopressor TAB] 50 mg PO BID #60 tablet 10/17/18 Unknown Rx Pantoprazole [Protonix TAB] 40 mg PO DAILY #30 tablet 10/17/18 Unknown Rx diphenhydrAMINE [Benadryl CAP] 50 mg PO HS #30 capsule 10/17/18 Unknown Rx predniSONE [Deltasone] 80 mg PO QDAY #120 tablet 10/17/18 Unknown Rx Active Medications: Generic Name Dose Route Start Last Admin Trade Name Freq PRN Reason Stop Dose Admin Acetaminophen 650 mg 09/18/18 02:40 09/27/18 05:36 Tylenol PO 650 mg Q4H PRN Administration Pain MILD(1-3)/Fever >100.5/MENDOZA Atorvastatin Calcium 40 mg 09/18/18 22:00 10/17/18 22:23 Lipitor PO 40 mg QHS LUZ Administration Diphenhydramine HCl 50 mg 09/18/18 22:00 10/17/18 22:23 Benadryl PO 50 mg HS LUZ Administration Divalproex Sodium 500 mg 09/18/18 10:00 10/17/18 22:[address] PO Not Given BID [facility] Epoetin Luis 20,000 unit 09/26/18 12:23 10/11/18 19:01 Procrit SUB-Q 20,000 unit KUSHAL PRN Administration hemodialysis Folic Acid 1 mg 10/18/18 10:00 Folvite PO QDAY [facility] Furosemide 80 mg 09/29/18 06:00 10/18/18 05:26 Lasix PO 80 mg 0600,1800 LUZ Administration Haloperidol 5 mg 09/25/18 22:00 10/17/18 22:23 Haldol PO 5 mg HS LUZ Administration Heparin Sodium (Porcine) 2,000 unit 10/13/18 13:08 Heparin 10,000 Units/10 Ml IV KUSHAL PRN hemodialysis Heparin Sodium (Porcine) 5,000 unit 10/13/18 13:08 Heparin IV KUSHAL PRN hemodialysis Heparin Sodium (Porcine) 5,000 unit 10/13/18 14:00 10/18/18 05:26 Heparin SUB-Q 5,000 unit Q8HR LUZ Administration Hydralazine HCl 10 mg 09/22/18 06:28 09/22/18 12:12 Apresoline IV 10 mg Q4H PRN Administration systolic b/p >165 Hydromorphone HCl 0.5 mg 09/18/18 02:40 Dilaudid IV Q3H PRN Pain , Severe (7-10) Sodium Chloride 100 mls @ 999 mls/hr 10/13/18 13:08 Nacl 0.9% IV KUSHAL PRN Hypotension Metoprolol Tartrate 50 mg 10/07/18 13:00 10/17/18 22:49 Lopressor PO 50 mg BID LUZ Administration Multivitamins 1 each 10/18/18 10:00 Theragran Tab PO QDAY [facility] Ondansetron HCl 4 mg 09/18/18 02:40 10/07/18 03:15 Zofran IV 4 mg Q8H PRN Administration Nausea And Vomiting Oxycodone/Acetaminophen 1 tab 09/18/18 02:40 10/09/18 22:03 Percocet 5/325 PO 1 tab Q6H PRN Administration Pain, Moderate (4-6) Pantoprazole Sodium 40 mg 10/02/18 10:00 10/17/18 11:36 Protonix PO 40 mg DAILY LUZ Administration Prednisone 80 mg 10/12/18 10:00 10/17/18 11:35 Deltasone PO 80 mg QDAY LUZ Administration Sodium Chloride 10 ml 09/18/18 10:00 10/17/18 22:27 Sodium Chloride Flush Syringe 10 Ml IV 10 ml BID LUZ Administration Sodium Chloride 10 ml 09/18/18 02:40 10/11/18 22:43 Sodium Chloride Flush Syringe 10 Ml IV 10 ml PRN PRN Administration LINE FLUSH
--- NOTE | 2018-10-18 09:00 | Progress Note ---
Assessment and Plan 1. Acute kidney injury: LUCILA secondary to blocked tubules from Proteinuria. Patient was started on hemodialysis on 09/24/2018 due to worsening renal function, anasarca and suspected pulmonary edema. Last dialyzed on 10/12/18. Creatinine level gradually improving. Monitor renal function. Unlikely she would need hemodialysis in the near future. Will remove the dialysis catheter. Renal prognosis guarded. 2. Nephrotic syndrome: Kidney bx showed Tip variant FSGS. Continue Prednisone. Monitor renal function. On Heparin to prevent DVT. Continue Statin. 3. FEN: Volume overload, on Lasix. Hyperkalemia, improved. 4. VRE bacteriuria. 5. HTN: Monitor BP. 6. Anemia: GI bleed. S/p PRBC. 7. Schizophrenia. 8. Medical non-compliance. F/u with me in one week. Subjective Date of service: 10/18/18 Principal diagnosis: neck DVT Interval history: Patient was seen and examined at the bedside. Doing ok. Objective - Vital Signs Vital signs: Vital Signs - 12hr 10/17/18 10/17/18 10/17/18 22:37 22:49 23:46 Temperature 98.0 F Pulse Rate 80 81 Respiratory 20 18 Rate Blood Pressure 126/76 126/76 O2 Sat by Pulse 97 Oximetry 10/18/18 05:41 Temperature 98.0 F Pulse Rate Respiratory 20 Rate Blood Pressure 124/70 O2 Sat by Pulse Oximetry - General Appearance General appearance: well-developed, well-nourished, appears stated age, other (not in distress, right IJ tunnel catheter) EENT: ATNC, PERRL, mucous membranes moist, hearing intact, vision intact Neck: supple Respiratory: Present: Clear to Ascultation Cardiology: regular, S1S2, no murmurs Gastrointestinal: normoactive bowel sounds, no tenderness, no distended, obese Integumentary: warm and dry Neurologic: no focal deficit, no asterixis, alert and oriented x3 Musculoskeletal: other (2+ edema of both LEs) - Lab 10/17/18 10:08 10/18/18 05:27 Most recent lab results Calcium 7.0 mg/dL (8.4-10.2) L 10/18/18 05:27 Phosphorus 4.90 mg/dL (2.5-4.5) H 10/16/18 10:21 Magnesium 1.70 mg/dL (1.7-2.3) 10/14/18 07:11 Urine Creatinine 97.5 mg/dL (0.1-20.0) H 09/21/18 07:00 Ur Total Protein 24 Hr 1073.50 mg/dL (2-200) H 09/18/18 10:30 Urine Sodium 53 mmol/L 09/21/18 07:00 Urine Total Protein 708 mg/dL (5-11.8) H 09/21/18 07:00 Medications & Allergies - Medications Allergies/Adverse Reactions: Allergies No Known Allergies Allergy (Unverified 09/17/18 15:05) Home Medications: Home Medications Medication Instructions Recorded Confirmed Last Taken Type AtorvaSTATin [Lipitor] 40 mg PO QHS #30 tablet 10/17/18 Unknown Rx Divalproex Sodium [Depakote] 500 mg PO BID #60 tablet. 10/17/18 Unknown Rx Furosemide [Lasix TAB] 80 mg PO 0600,1800 #60 tablet 10/17/18 Unknown Rx Haloperidol [Haldol] 5 mg PO HS #30 tablet 10/17/18 Unknown Rx Metoprolol [Lopressor TAB] 50 mg PO BID #60 tablet 10/17/18 Unknown Rx Pantoprazole [Protonix TAB] 40 mg PO DAILY #30 tablet 10/17/18 Unknown Rx diphenhydrAMINE [Benadryl CAP] 50 mg PO HS #30 capsule 10/17/18 Unknown Rx predniSONE [Deltasone] 80 mg PO QDAY #120 tablet 10/17/18 Unknown Rx Active Medications: Generic Name Dose Route Start Last Admin Trade Name Freq PRN Reason Stop Dose Admin Acetaminophen 650 mg 09/18/18 02:40 09/27/18 05:36 Tylenol PO 650 mg Q4H PRN Administration Pain MILD(1-3)/Fever >100.5/MENDOZA Atorvastatin Calcium 40 mg 09/18/18 22:00 10/17/18 22:23 Lipitor PO 40 mg QHS LUZ Administration Diphenhydramine HCl 50 mg 09/18/18 22:00 10/17/18 22:23 Benadryl PO 50 mg HS LUZ Administration Divalproex Sodium 500 mg 09/18/18 10:00 10/17/18 22:25 Kim Napoles PO Not Given BID LUZ Epoetin Luis 20,000 unit 09/26/18 12:23 10/11/18 19:01 Procrit SUB-Q 20,000 unit KUSHAL PRN Administration hemodialysis Folic Acid 1 mg 10/18/18 10:00 Folvite PO QDAY LUZ Furosemide 80 mg 09/29/18 06:00 10/18/18 05:26 Lasix PO 80 mg 0600,1800 LUZ Administration Haloperidol 5 mg 09/25/18 22:00 10/17/18 22:23 Haldol PO 5 mg HS LUZ Administration Heparin Sodium (Porcine) 2,000 unit 10/13/18 13:08 Heparin 10,000 Units/10 Ml IV KUSHAL PRN hemodialysis Heparin Sodium (Porcine) 5,000 unit 10/13/18 13:08 Heparin IV KUSHAL PRN hemodialysis Heparin Sodium (Porcine) 5,000 unit 10/13/18 14:00 10/18/18 05:26 Heparin SUB-Q 5,000 unit Q8HR LUZ Administration Hydralazine HCl 10 mg 09/22/18 06:28 09/22/18 12:12 Apresoline IV 10 mg Q4H PRN Administration systolic b/p >165 Hydromorphone HCl 0.5 mg 09/18/18 02:40 Dilaudid IV Q3H PRN Pain , Severe (7-10) Sodium Chloride 100 mls @ 999 mls/hr 10/13/18 13:08 Nacl 0.9% IV KUSHAL PRN Hypotension Metoprolol Tartrate 50 mg 10/07/18 13:00 10/17/18 22:49 Lopressor PO 50 mg BID LUZ Administration Multivitamins 1 each 10/18/18 10:00 Theragran Tab PO QDAY [facility] Ondansetron HCl 4 mg 09/18/18 02:40 10/07/18 03:15 Zofran IV 4 mg Q8H PRN Administration Nausea And Vomiting Oxycodone/Acetaminophen 1 tab 09/18/18 02:40 10/09/18 22:03 Percocet 5/325 PO 1 tab Q6H PRN Administration Pain, Moderate (4-6) Pantoprazole Sodium 40 mg 10/02/18 10:00 10/17/18 11:36 Protonix PO 40 mg DAILY LUZ Administration Prednisone 80 mg 10/12/18 10:00 10/17/18 11:35 Deltasone PO 80 mg QDAY LUZ Administration Sodium Chloride 10 ml 09/18/18 10:00 10/17/18 22:27 Sodium Chloride Flush Syringe 10 Ml IV 10 ml BID LUZ Administration Sodium Chloride 10 ml 09/18/18 02:40 10/11/18 22:43 Sodium Chloride Flush Syringe 10 Ml IV 10 ml PRN PRN Administration LINE FLUSH
[2018-10-18] MEDS ORDERED: THERAGRAN Tab PO SCH (10:00)
[2018-10-18] MEDS ORDERED: FOLVITE PO SCH (10:00)
[2018-10-18] MEDS: PROTONIX PO SCH (10:05)
[2018-10-18] MEDS: DELTASONE PO SCH (10:05)
[2018-10-18] MEDS: LOPRESSOR PO SCH (10:06)
[2018-10-18] MEDS: SODIUM CHLORIDE FLUSH SYRINGE 10 ML IV SCH (10:07)
[2018-10-18 12:16] VITALS: BP 112/49
--- NOTE | 2018-10-18 13:02 | Progress Note ---
Assessment and Plan /Acute renal failure due to Nephrotic syndrome/FSGS. Patient was started on hemodialysis on 09/24/2018 due to worsening renal function, anasarca and suspected pulmonary edema. 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 Facility will not accept the patient with perm cath /Coffee-ground emesis with Radha Mendez Tear. GI consulted H&H dropped, s/p EGD showed MW tear, s/p PRBC transfusion. /Acute on chronic Blood loss anemia due to MW tear- s/p 4 units PRBC transfusion /Right lower extremity thigh pain. Resolved, Doppler lower extremities bilaterally negative for DVT /Left breast swelling, unknown at present. Need outpatient Mammogram and U/S /Morbid obesity, bmi 55.2: lifestyle modification /Medical noncompliance. Patient intermittently at times refusing care. Per psych she has decision making capacity. /Schizophrenia, Bipolar disorder. Continue current medications.. Psych consulted /Hyperkalemia. s/p Kayexalate. Resolved /Presumed Sepsis. Left lower lobe pneumonia ? . Present on admission. treated with Iv abx /UTI? with VRE: ID was following, ordered isolation, treated with amoxicillin for 3 days, likely colonization /DVT OF internal jugular vein- discussed with vascular surgeon considering patient's history of GI bleed, Radha-Mendez tear, recurrent anemia required transfusion patient appears not to be a candidate at this time for antic oagulation. per Heme/onc most likely related to nephrotic syndrome, and would not a/c due to recent gi bleed. D/w Dr. Nguyen /DVT prophylaxis: patient is refusing injections Disposition: continue inpatient care, needs new placement. Brief History Patient is a 47 yo woman with a history of Obesity, HTN and Schizophrenia who presented to the ER with bilateral leg swelling, SOB and increase in the abdominal girth and weight gain of ~86 pounds in 10 weeks. Labs were significant for creatinine of 2.2, Hb 8.5, albumin 1.4 and 3+ protein in the urine. Patient was admitted with provisional diagnosis of Nephrotic syndrome. Nephrology was consulted for further evaluation, started on HD and recommended Kidney biopsy; which patient refused on multiple occasions but then finally had it which showed a good prognosis FSGN which usually responds to steroids. Also, During hospital coarse, she was found to have coffee ground emesis and EGD was done on 09/26/18 and showed M-W tear. Her hemoglobin was steadily dropping and she initially refused blood transfusion but then able to transfused 4 units. Started on steroid with good response. last HD was on 10/12/18. 09/26/18 EGD Pre-op diagnosis: gi bleed Post-op diagnosis: same Findings: EGD: large hiatal hernia - m-w tear with pigmented area jut above g-e junction - mild gastritis - negative other Procedure: EGD Hospitalist Physical GEN: chronic disable, NAD, Awake, Alert, Orientated, bmi 47.5 HEENT: NCAT, EOMI, PERRL, OP Clear NECK: supple, no adenopathy, no thyromegaly, no JVD CVS/HEART: Regular tachy, normal S1S2, pulses present bilaterally CHEST/LUNGS: diminished bs bilateral, poor effort, Symmetrical chest expansion, good air entry bilaterally GI/Abdomen: soft, NTND, good bowel sounds, no guarding or rebound /Bladder: no suprapubic tenderness, no CVA or paraspinal tenderness EXT/Skin: ble edema no obvious rash MSK: FROM x 4 Neuro: CN 2-12 grossly intact, no new focal deficits Psych: calm Subjective Date of service: 10/17/18 Principal diagnosis: neck DVT Interval history: Patient seen and examined No acute event o/n, last HD was on Monday Discussed with nephrology, planned to d/c today with outpt HD but facility will not receive the patient with perm cath Objective - Constitutional Vitals: Vital Signs - 12hr 10/18/18 10/18/18 10/18/18 05:41 09:59 10:06 Temperature 98.0 F Pulse Rate 67 Respiratory 20 Rate Blood Pressure 124/70 144/76 144/76 O2 Sat by Pulse Oximetry 10/18/18 12:06 Temperature 98.1 F Pulse Rate 75 Respiratory 18 Rate Blood Pressure 112/49 O2 Sat by Pulse 91 Oximetry - Labs CBC & Chem 7: 10/17/18 10:08 10/18/18 05:27 Labs: Abnormal lab results 10/18/18 Range/Units 05:27 BUN 50 H (7-17) mg/dL Creatinine 3.7 H (0.7-1.2) mg/dL Glucose 110 H (65-100) mg/dL Calcium 7.0 L (8.4-10.2) mg/dL
--- NOTE | 2018-10-18 13:23 | Post Operative Note ---
Date of procedure: 10/18/18 Pre-op diagnosis: Renal failure, end of catheter therapy Post-op diagnosis: same Findings: Can remove pressure dressing in 4 hrs. Told patient to be upright for the next 4 hours. Procedure: Right chest permcath removed Anesthesia: local Surgeon: JOELLEN GRUBBS Estimated blood loss: minimal Condition: stable Disposition: no change
--- NOTE | 2018-10-18 14:50 | Operative Report ---
Operative Report Operative Report: EXAM: Tunneled catheter removal DATE: 10/18/18 INDICATION: Acute renal failure, end of therapy. MEDICATIONS: Please see nursing report for full details. [employer]: JOELLEN GRUBBS MD CONTRAST: None PROCEDURE: The risks, benefits, and alternatives were discussed; written informed consent was obtained. The patient was positioned with the head towards the contralateral side. The tunneled catheter was prepped and draped in a sterile fashion. Lidocaine was infiltrated at the dermatotomy site. Heparin was withdrawn from both lumens. Using a hemostat, blunt dissection was performed and the cuff was extracted. The catheter was extracted and pressure was held at the venotomy and dermatotomy site until hemostasis was achieved. Sterile bandage was then applied. The patient tolerated the procedure without issue. Pressure dressing applied. FINDINGS: Successful removal of the tunneled catheter. IMPRESSION: Successful removal of the right chest tunneled catheter.
== END 2018-10-18 17:45 | DRG 853 ==
LOC: ED 14:43 → 3A 18:15
PROVIDERS: ADMIT Internal Medicine; ATTEND Internal Medicine
PROC: 4A033R1 Measurement of Arterial Saturation, Peripheral, Percutaneous Approach (ICD-10-PCS; 2018-09-23)
PROC: 5A1D70Z Performance of Urinary Filtration, Intermittent, Less than 6 Hours Per Day (ICD-10-PCS; 2018-09-24)
PROC: 0JH63XZ Insertion of Tunneled Vascular Access Device into Chest Subcutaneous Tissue and Fascia, Percutaneous Approach (ICD-10-PCS; 2018-09-24)
PROC: 02HV33Z Insertion of Infusion Device into Superior Vena Cava, Percutaneous Approach (ICD-10-PCS; 2018-09-24)
PROC: B5181ZA Fluoroscopy of Superior Vena Cava using Low Osmolar Contrast, Guidance (ICD-10-PCS; 2018-09-24)
PROC: B548ZZA Ultrasonography of Superior Vena Cava, Guidance (ICD-10-PCS; 2018-09-24)
PROC: 5A1D70Z Performance of Urinary Filtration, Intermittent, Less than 6 Hours Per Day (ICD-10-PCS; 2018-09-25)
PROC: 0DJ08ZZ Inspection of Upper Intestinal Tract, Via Natural or Artificial Opening Endoscopic (ICD-10-PCS; 2018-09-26)
PROC: 30233N1 Transfusion of Nonautologous Red Blood Cells into Peripheral Vein, Percutaneous Approach (ICD-10-PCS; 2018-09-27)
PROC: 5A1D70Z Performance of Urinary Filtration, Intermittent, Less than 6 Hours Per Day (ICD-10-PCS; 2018-09-27)
PROC: 5A1D70Z Performance of Urinary Filtration, Intermittent, Less than 6 Hours Per Day (ICD-10-PCS; 2018-09-28)
PROC: 5A1D70Z Performance of Urinary Filtration, Intermittent, Less than 6 Hours Per Day (ICD-10-PCS; 2018-09-29)
PROC: 5A1D70Z Performance of Urinary Filtration, Intermittent, Less than 6 Hours Per Day (ICD-10-PCS; 2018-10-01)
PROC: 5A1D70Z Performance of Urinary Filtration, Intermittent, Less than 6 Hours Per Day (ICD-10-PCS; 2018-10-02)
PROC: 5A1D70Z Performance of Urinary Filtration, Intermittent, Less than 6 Hours Per Day (ICD-10-PCS; 2018-10-04)
PROC: 5A1D70Z Performance of Urinary Filtration, Intermittent, Less than 6 Hours Per Day (ICD-10-PCS; 2018-10-06)
PROC: 5A1D70Z Performance of Urinary Filtration, Intermittent, Less than 6 Hours Per Day (ICD-10-PCS; 2018-10-08)
PROC: 0TB03ZX Excision of Right Kidney, Percutaneous Approach, Diagnostic (ICD-10-PCS; 2018-10-10)
PROC: BT211ZZ Computerized Tomography (CT Scan) of Right Kidney using Low Osmolar Contrast (ICD-10-PCS; 2018-10-10)
PROC: 05733ZZ Dilation of Right Innominate Vein, Percutaneous Approach (ICD-10-PCS; 2018-10-11)
PROC: 05PY33Z Removal of Infusion Device from Upper Vein, Percutaneous Approach (ICD-10-PCS; 2018-10-11)
PROC: 5A1D70Z Performance of Urinary Filtration, Intermittent, Less than 6 Hours Per Day (ICD-10-PCS; 2018-10-11)
PROC: B5131ZZ Fluoroscopy of Right Jugular Veins using Low Osmolar Contrast (ICD-10-PCS; 2018-10-11)
PROC: B51V1ZZ Fluoroscopy of Other Veins using Low Osmolar Contrast (ICD-10-PCS; 2018-10-11)
PROC: B5181ZZ Fluoroscopy of Superior Vena Cava using Low Osmolar Contrast (ICD-10-PCS; 2018-10-11)
PROC: 0JPT3XZ Removal of Tunneled Vascular Access Device from Trunk Subcutaneous Tissue and Fascia, Percutaneous Approach (ICD-10-PCS; 2018-10-11)
PROC: 0JH63XZ Insertion of Tunneled Vascular Access Device into Chest Subcutaneous Tissue and Fascia, Percutaneous Approach (ICD-10-PCS; 2018-10-11)
PROC: 02HV33Z Insertion of Infusion Device into Superior Vena Cava, Percutaneous Approach (ICD-10-PCS; 2018-10-11)
PROC: B548ZZA Ultrasonography of Superior Vena Cava, Guidance (ICD-10-PCS; 2018-10-11)
PROC: 5A1D70Z Performance of Urinary Filtration, Intermittent, Less than 6 Hours Per Day (ICD-10-PCS; 2018-10-13)
PROC: 02PY33Z Removal of Infusion Device from Great Vessel, Percutaneous Approach (ICD-10-PCS; principal; 2018-10-18)
PROC: 0JPT3XZ Removal of Tunneled Vascular Access Device from Trunk Subcutaneous Tissue and Fascia, Percutaneous Approach (ICD-10-PCS; 2018-10-18)
DX: A41.9 Sepsis, unspecified organism (principal); N17.0 Acute kidney failure with tubular necrosis; K22.6 Gastro-esophageal laceration-hemorrhage syndrome; E43 Unspecified severe protein-calorie malnutrition; J96.01 Acute respiratory failure with hypoxia; J18.1 Lobar pneumonia, unspecified organism; D62 Acute posthemorrhagic anemia; N04.9 Nephrotic syndrome with unspecified morphologic changes; N39.0 Urinary tract infection, site not specified; K44.9 Diaphragmatic hernia without obstruction or gangrene; K29.70 Gastritis, unspecified, without bleeding; E87.70 Fluid overload, unspecified; F17.200 Nicotine dependence, unspecified, uncomplicated; B95.2 Enterococcus as the cause of diseases classified elsewhere; Z16.21 Resistance to vancomycin; D69.6 Thrombocytopenia, unspecified; F20.9 Schizophrenia, unspecified; F31.9 Bipolar disorder, unspecified; E87.5 Hyperkalemia; M79.651 Pain in right thigh; I50.9 Heart failure, unspecified; E66.01 Morbid (severe) obesity due to excess calories; Z68.43 Body mass index [BMI] 50.0-59.9, adult; Z82.49 Family history of ischemic heart disease and other diseases of the circulatory system; Z91.14 Patient's other noncompliance with medication regimen; Z71.3 Dietary counseling and surveillance; I82.C11 Acute embolism and thrombosis of right internal jugular vein
CPT/HCPCS: 36415; 36430; 36558; 36581; 36600; 37248; 71045; 71046; 76770; 76937; 77001; 77012; 80048; 80053; 80074; 80164; 80307; 81001; 82150; 82550; 82570; 82607; 82747; 82803; 83520; 83550; 83690; 83735; 83880; 83970; 84100; 84132; 84156; 84165; 84300; 84484; 84540; 84703; 85007; 85014; 85018; 85025; 85027; 85049; 85610; 85730; 86021; 86038; 86160; 86850; 86900; 86901; 86920; 87040; 87076; 87086; 87186; 87806; 89050; 93005; 93010; 93970; 94760; G0378; A9270-GY; C1725; C1750; C1751; C1769; C9113; J0360; J0456; J0696; J0885; J1644; J1650; J1940; J2250; J2405; J2704; J2930; J2997; J3010; J3370; J7030; J7040; J7050; J7512; P9016